=== PATIENT | female | born 1960 | race Caucasian/White ===

== ENCOUNTER 2020-01-10 21:15 | Emergency (ER) | payer MEDICAID, SELFPAY ==
[2020-01-10 21:28] VITALS: BP 139/101; PULSE 112; RESP 16; TEMP 36.7; O2SAT 85; BMI 29.9
--- NOTE | 2020-01-10 21:38 | CT_ITS ---
PROCEDURE: CT ABDOMEN PELVIS WO CON CLINICAL INDICATION: abd pain Abdominal pain, dysuria, painful urination with hematuria COMPARISON: No exams were available for comparison TECHNIQUE: Axial images obtained with sagittal and coronal reformats. All CT scans at the facility use one or more dose reduction, viz: automated exposure control, ma/kV adjustment per patient size (including targeted exams where dose is matched to indication, i.e. head), or iterative reconstruction technique. FINDINGS: LOWER THORAX: There is a 4 and 2 mm noncalcified nodule in the right lower lobe. 3 mm noncalcified nodule lingula. There are calcified granulomas in the left lower lobe and a noncalcified subpleural 2 mm nodule in the left lower lobe. ABDOMEN & PELVIS: Prior cholecystectomy. Hyperdensity with postsurgical change of the GE junction. Food debris within the stomach. The liver, spleen, adrenal glands, and pancreas have an unremarkable appearance. No renal or ureteral calculi. No hydronephrosis. There are few scattered small mesenteric lymph nodes. Unremarkable appearing appendix. Scattered colonic diverticula without diverticulitis. Mild degenerative disc disease L4-5 with 5 mm anterolisthesis of L4. there is some stranding of the abdominal wall fat in the right lower quadrant nonspecific. IMPRESSION: 1. No acute abdominal or pelvic findings. 2. Scattered noncalcified pulmonary nodules in the lung bases. Consider 6-12 month follow-up Dictated by: Mina Mae MD 01/11/2020 08:33 Electronically signed by Mina Mae MD in [place] 01/11/2020 08:33
[2020-01-10 21:42] LABS: Microscopic, Urine URINE MICROSCOPIC (MICROSCOPIC)
[2020-01-10 21:46] LABS: Appearance,Urine CLEAR (Clear); Bilirubin,Urine Negative (Negative); Blood, Urine 3+ (Negative); Color,Urine YELLOW (Yellow); Glucose,Urine (UA) Negative (Negative); Ketones,Urine TRACE (Negative); Leukocyte Esterase,Urine TRACE (Negative); Nitrate,Urine POSITIVE (Negative); PH,Urine 5.5 (5.0-8.5); Protein,Urine 2+ (Negative); Specific Gravity, Urine >= 1.030 (1.005-1.030); Urobilinogen,Urine 0.2 EU/dl (0.2)
[2020-01-10 21:50] LABS: Basophils % 0.3 % (0.1-2.0); Eosinophils # 0.3 K/mm3 (0.0-0.4); Hematocrit 36.3 % (37.0-47.0); Lymphocytes # 2.8 K/mm3 (0.7-4.5); Lymphocytes % 21.1 % (10-50); Mean Corpuscular HGB Conc 35.9 g/dL (31.8-35.4); Mean Corpuscular Hemoglobin 33.5 pg (27.0-31.2); Mean Corpuscular Volume 93.2 fl (81-99); Mean Platelet Volume 8.4 fl (7.4-10.4); Monocytes # 0.5 K/mm3 (0.1-1.0); Monocytes % 3.8 % (1.7-9.3); Neutrophils # 9.7 K/mm3 (1.8-7.8); Neutrophils % 72.8 % (37.0-80.0); Platelet Count 196 K/mm3 (142-424); Red Blood Count 3.89 M/mm3 (4.20-5.40); Red Cell Distribution Width 13.9 % (11.5-17.5); White Blood Count 13.3 K/mm3 (4.8-10.8)
--- NOTE | 2020-01-10 21:55 | PC.NURSE ---
lab to come draw blood for labs.
--- NOTE | 2020-01-10 22:02 | PC.NURSE ---
air evac confirms flight[facility] housekeeper child care notified.
[2020-01-10 22:05] LABS: Bacteria,Urine Trace /lpf
[2020-01-10 22:18] LABS: Chloride 108 mmol/L (98-107); Potassium 3.5 mmoL/L (3.5-5.1); Sodium 144 mmol/L (136-145)
[2020-01-10 22:21] LABS: Alanine Aminotransferase 31 U/L (12-78); Albumin Level 4.3 g/dl (3.5-5.0); Albumin/Globulin Ratio 1.3 (1.1-1.8); Alkaline Phosphatase 80 U/L (38-126); Anion Gap 15.5 mEq/L (5-15); Aspartate Amino Transferase 30 U/L (14-36); Bilirubin,Total 0.5 mg/dl (0.2-1.3); Blood Urea Nitrogen 17 mg/dl (7-17); Calcium 9.2 mg/dl (8.4-10.2); Carbon Dioxide 24 mmol/L (22.0-30.0); Creatinine Clearance Estimated 55 mL/min (50-200); Estimated Glomerular Filt Rate 46 ml/min (>60); GFR (African American) 56 ML/MIN (>60); Globulin 3.3 g/dL (1.3-3.2); Glucose 204 mg/dl (74-100); Total Protein,Serum 7.6 g/dl (6.3-8.2)
[2020-01-10 22:49] VITALS: BP 170/82; PULSE 76; RESP 20; O2SAT 99
--- NOTE | 2020-01-10 23:36 | PC.NURSE ---
still unable to obtain an iv line. green house manager at bedside attempting at this time.
--- NOTE | 2020-01-10 23:42 | PC.NURSE ---
DISCUSSED IF NEEDS ANTIBIOTIC AND STATES HE WILL GO SEE PATIENT FIRST
--- NOTE | 2020-01-11 00:17 | HMH.EDUROGF ---
ED Disposition Clinical Impression: Urinary tract infection Qualifiers: Urinary tract infection type: site unspecified Hematuria presence: with hematuria Qualified Code(s): N39.0 - Urinary tract infection, site not specified; R31.9 - Hematuria, unspecified Disposition: Home, Self-Care Condition on Discharge: Good Instructions: DI for Urinary Tract Infection (UTI) Additional Instructions: fluids and see pcp about urine culture and see dr gore for follow up Prescriptions: levoFLOXacin [Levaquin 500mg tab] 500 mg PO DAILY #7 tab Prescription Printed Phenazopyridine HCl [Pyridium 200mg Tablet] 200 pow PO TID #6 tab Prescription Printed Referrals: Lupillo Garcia [Primary Care Provider] - Daniel Gore MD [Staff Physician] - - Critical Care Critical Care Time: No Attestation: On 01/10/20, the high probability of a clinically significant, sudden or life threatening deterioration of the following system(s) required my full and direct attention, intervention and personal management. The time I documented below is in addition to time spent performing reported procedures but includes the following listed in this critical care notation. Medical Decision Making - Medical Records Medical records reviewed: Yes: I reviewed the patient's medical records. - Mirza Inquiry Pt receiving controlled substance: No Vital Signs: 01/10/20 21:28 01/10/20 22:49 Temperature 98.1 F Temperature Source Oral Pulse Rate [Right Brachial] 112 H 76 Respiratory Rate 16 20 Blood Pressure [Right Arm] 139/101 H 170/82 H Blood Pressure Mean [Right Arm] 113 111 Blood Pressure Source [Right Arm] Automatic Cuff Blood Pressure Position [Right Arm] Supine 02 Sat by Pulse Oximetry 85 L 99 Oxygen Delivery Method Room Air Room Air - Lab Data Lab results reviewed: Yes: I reviewed the patient's lab results. Lab Results 01/10/20 21:20: Urine Color Yellow, Urine Appearance Clear, Urine pH 5.5, Ur Specific [place] >= 1.030, Urine Protein 2+, Urine Glucose (UA) Negative, Urine Ketones Trace, Urine Blood 3+, Urine Nitrate Positive, Urine Bilirubin Negative, Urine Urobilinogen 0.2, Ur Leukocyte Esterase Trace, Urine RBC 5-10, Urine WBC 3-5, Ur Squamous Epith Cells 3-5, Urine Bacteria Trace 01/10/20 21:20: WBC 13.3 H, RBC 3.89 L, Hgb 13.0, Hct 36.3 L, MCV 93.2, MCH 33.5 H, MCHC 35.9 H, RDW 13.9, Plt Count 196, MPV 8.4, Neut % (Auto) 72.8, Lymph % (Auto) 21.1, [place] % (Auto) 3.8, Eos % (Auto) 2.0, Baso % (Auto) 0.3, Neut # (Auto) 9.7 H, Lymph # (Auto) 2.8, [place] # (Auto) 0.5, Eos # (Auto) 0.3, Baso # (Auto) 0.0 01/10/20 22:08: Sodium 144, Potassium 3.5, Chloride 108 H, Carbon Dioxide 24, Anion Gap 15.5 H, BUN 17, Creatinine 1.20 H, Estimated Creat Clear 55, Estimated GFR 46 L, Est GFR ( Amer) 56 L, Glucose 204 H, Calcium 9.2, Total Bilirubin 0.5, AST 30, ALT 31, Alkaline Phosphatase 80, Total Protein 7.6, Albumin 4.3, Globulin 3.3 H, Albumin/Globulin Ratio 1.3 Result diagrams: 01/10/20 21:20 01/10/20 22:08 Orders (Tests/Meds): ED MEDICATIONS Generic Name Dose Route Start Last Admin Trade Name Freq PRN Reason Stop Dose Admin Sodium Chloride 1,000 mls @ 999 mls/hr 01/10/20 21:45 01/10/20 23:42 Sod Chlor 0.9% 1000ml Bag IV 01/10/20 22:45 999 mls/hr .Q1H1M CELESTE Administration Ertapenem 1 gm/ Sodium 50 mls @ 100 mls/hr 01/11/20 00:30 01/11/20 00:29 Chloride IV 01/25/20 00:29 100 mls/hr Q24H CELESTE Administration Protocol Discontinued Medications Generic Name Dose Route Start Last Admin Trade Name Freq PRN Reason Stop Dose Admin Ondansetron HCl 4 mg 01/10/20 21:39 01/10/20 23:47 Zofran 4mg/2ml Vial IV 01/10/20 21:40 Not Given ONCE ONE ORDERS Category Date Time Status CT abdomen pelvis wo con Stat Cat Scan 01/10/20 21:38 Taken - CT Data CT Scan: Abdomen, Pelvis Time Received: 00:[address] Reviewed: Yes: I have viewed the radiologist's interpretation Preliminary Findings: Carolin
[2020-01-11 01:08] VITALS: BP 156/80; PULSE 72; RESP 18; TEMP 36.7; O2SAT 99
== END 2020-01-11 01:10 | disposition home or self-care (01) ==
PROVIDERS: Emergency Provider Emergency Medicine; PCP Family Medicine
DX: N30.01 Acute cystitis with hematuria (principal)
CPT/HCPCS: 36415; 74176; 80053; 81001; 85025; 87086; 96365; 96366; 96375; 99283; 99284; J1335

== ENCOUNTER 2020-10-23 11:48 | Emergency (ER) | payer MEDICAID, SELFPAY ==
[2020-10-23 12:29] VITALS: BP 118/55; PULSE 66; RESP 18; TEMP 36.7; O2SAT 99; BMI 29.7
--- NOTE | 2020-10-23 12:49 | HMH.EDUTC ---
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 Take ibuprofen for pain. I sent in a prescription to your pharmacy. Follow up with Dr. Jean (orthopedics). Sometimes there can be fractures that don't show up well on the first set of x-rays. So, you should follow up if you continue to have symptoms. I put in a referral but you need to call his office and schedule an appointment. Follow up with your regular doctor. GO TO THE ER FOR ANY WORSENING SYMPTOMS Follow your diabetes diet closely while you are on the steroids (prednisone). This medication will cause your blood sugar to go up while you are on it. Prescriptions: cephALEXin [cephALEXin 500mg capsule] 500 mg PO Q6H 10 Days #40 cap Transmission Status: Received by [facility] predniSONE [Prednisone 20mg Tab] 20 mg PO BID 4 Days #8 tab Transmission Status: Received by [facility] Referrals: Lupillo Garcia [Primary Care Provider] - Zain Jean MD [Staff Physician] - Time of Disposition: 13:00 Medical Decision Making - Medical Records Medical records reviewed: No: I reviewed the patient's medical records. - Mirza Inquiry Pt receiving controlled substance: No Vital Signs: 10/23/20 12:29 10/23/20 13:09 Temperature 98.0 F 98.0 F Temperature Source Oral Oral Pulse Rate 66 Pulse Rate [Right Radial] 66 Respiratory Rate 18 18 Blood Pressure 118/55 L Blood Pressure [Right Arm] 118/55 L Blood Pressure Mean [Right Arm] 76 02 Sat by Pulse Oximetry 99 Oxygen Delivery Method Room Air Room Air [facility] [place] - General Stated complaint: left knee pain Time Seen by Provider: 10/23/20 12:49 Mode of Arrival: Ambulatory Source of Information: Patient Limitations: No Limitations Description of Symptoms (Recalled from Triage Doc. by RN): left knee discomfort HEENT Symptoms (Recalled from RN notes): No Resp Symptoms (Recalled from RN notes): No Skin Symptoms (Recalled from RN notes): No MS Symptoms (Recalled from RN notes): Yes Functional Status (Recalled from RN notes): na - History of Present Illness Provider Complaint: She states that for the past 1 day she has had left knee pain. She has had redness of the front of her knee also. She denies any injury. She denies fever/chills. She denies any history of gout. She is a diabetic. - Related Data Previous Rx's Medication Instructions Recorded Phenazopyridine HCl [Pyridium 200 pow PO TID #6 tab 01/11/20 200mg Tablet] levoFLOXacin [Levaquin 500mg 500 mg PO DAILY #7 tab 01/11/20 tab] cephALEXin [cephALEXin 500mg 500 mg PO Q6H 10 Days #40 cap 10/23/20 capsule] predniSONE [Prednisone 20mg 20 mg PO BID 4 Days #8 tab 10/23/20 Tab] Allergies Allergy/AdvReac Type Severity Reaction Status Date / Time From ZOFRAN Allergy Mild Uncoded 06/24/17 15:28 Amoxicillin Allergy Unknown Uncoded 06/24/17 15:28 Clavulanic Acid Allergy Unknown Uncoded 06/24/17 15:28 From Fexofenadine Allergy Unknown Uncoded 06/24/17 15:28 Hydrochloride From Ketorolac Tromethamine Allergy Unknown Uncoded 06/24/17 15:28 From Metoclopramide HCl Allergy Unknown Uncoded 06/24/17 15:28 From Propoxyphene-N W/ Apap Allergy Unknown Uncoded 06/24/17 15:28 From STADOL Allergy Unknown I-HIVES Uncoded 06/24/17 15:28 Ibuprofen Allergy Unknown Uncoded 06/24/17 15:28 Nizatidine Allergy Unknown Uncoded 06/24/17 15:28 Pr
[2020-10-23 13:09] VITALS: BP 118/55; PULSE 66; RESP 18; TEMP 36.7; O2SAT 99
== END 2020-10-23 13:10 | disposition home or self-care (01) ==
PROVIDERS: Emergency Provider Nurse Practitioner Family; PCP Family Medicine
DX: M70.42 Prepatellar bursitis, left knee (principal); E11.69 Type 2 diabetes mellitus with other specified complication; Z88.8 Allergy status to other drugs, medicaments and biological substances
CPT/HCPCS: 99202; G0463

== ENCOUNTER 2021-01-31 21:24 | Emergency (ER) | payer MEDICAID, SELFPAY ==
[2021-01-31 21:31] VITALS: BP 156/72; PULSE 73; RESP 15; TEMP 36.5; O2SAT 98; BMI 32.8
--- NOTE | 2021-01-31 21:36 | XR_ITS ---
PROCEDURE INFORMATION: Exam: XR Left Hand Exam date and time: 01/31/2021 9:36 PM Age: 60 years old Clinical indication: Injury or trauma; Other: Laceration; Left; Little finger; Injury date: 01/31/2021; Additional info: Injury to 5th finger (broke glass) TECHNIQUE: Imaging protocol: XR Left hand. Views: 3 or more views. COMPARISON: No relevant prior studies available. FINDINGS: Bones/joints: Degenerative changes of the interphalangeal joints. No fracture or dislocation. Soft tissues: Normal. IMPRESSION: No acute osseous abnormality.
[2021-01-31 21:58] VITALS: BP 181/89; PULSE 79; O2SAT 97
--- NOTE | 2021-01-31 21:58 | HMH.EDGENADL ---
ED Disposition Clinical Impression: Laceration Disposition: Home, Self-Care Condition on Discharge: Good Instructions: DI for Laceration Repair Additional Instructions: Follow-up with your primary care doctor. Take Tylenol and ibuprofen as needed for pain. Return for any signs of infection as we discussed. Return to the emergency department for any other new or worsening symptoms. Referrals: Lupillo Garcia [Primary Care Provider] - - Critical Care Critical Care Time: No Attestation: On 01/31/21, the high probability of a clinically significant, sudden or life threatening deterioration of the following system(s) required my full and direct attention, intervention and personal management. The time I documented below is in addition to time spent performing reported procedures but includes the following listed in this critical care notation. Medical Decision Making - Mirza Inquiry Pt receiving controlled substance: No Vital Signs: 01/31/21 21:31 01/31/21 21:58 Temperature 97.7 F Temperature Source Oral Pulse Rate 79 Pulse Rate [Right Brachial] 73 Respiratory Rate 15 Blood Pressure 181/89 H Blood Pressure [Right Arm] 156/72 H Blood Pressure Mean [Right Arm] 100 Blood Pressure Source [Right Arm] Automatic Cuff Blood Pressure Position [Right Arm] Sitting 02 Sat by Pulse Oximetry 98 97 Oxygen Delivery Method Room Air Orders (Tests/Meds): ED MEDICATIONS Discontinued Medications Generic Name Dose Route Start Last Admin Trade Name Freq PRN Reason Stop Dose Admin Tetanus/Diphtheria Toxoids 0.5 ml 01/31/21 21:36 01/31/21 21:55 Tetanus-Diphth Toxoid, Adult 0.5ml Syr IM 01/31/21 21:37 0.5 ml .ONCE ONE Administration Medical Decision Narrative: The patient is a 60-year-old female who presents to the emergency department with an injury to her left fifth digit after cutting it on glass. Differential diagnosis includes laceration, foreign body, fracture, tendon injury, neurovascular injury. No other injuries were sustained. The patient does not member when she had her last tetanus shot so was given Tdap. On exam all tendons appear to be intact. The patient has normal sensation and distal capillary refill less than 2 seconds. X-ray revealed no fractures or evidence of foreign body. The laceration was repaired. We discussed return precautions and the patient voiced understanding. She will follow up with her primary care doctor and was discharged. General Adult HPI - General Chief complaint: Wound/Laceration Stated complaint: AO 01/31 2100 Lac L hand Time Seen by Provider: 01/31/21 21:58 Mode of Arrival: Family Vehicle Limitations: No Limitations Description of Symptoms (Recalled from ER Triage Doc. by RN): pt states she was getting meds and a glass jar broke, slicing her left lateral 5th digit; denies use of blood thinner; small flapped area noted. - History of Present Illness HPI narrative: Patient is a 60-year-old female who presents to the emergency department with an injury to her left hand. Immediately prior to arrival she was getting medications for a family member and reports her hand slipped off of the cabinet going through the glass. She sustained a cut to her left fifth digit. She ran the area under water and came to the emergency department. She takes aspirin but no other blood thinners. She denies any other injuries. She did not take any medications prior to arrival. - Related Data Previous Rx's Medication Instructions Recorded Phenazopyridine HCl [Pyridium 200 pow PO TID #6 tab 01/11/20 200mg Tablet] levoFLOXacin [Levaquin 500mg 500 mg PO DAILY #7 tab 01/11/20 tab] cephALEXin [cephALEXin 500mg 500 mg PO Q6H 10 Days #40 cap 10/23/20 capsule] predniSONE [Prednisone 20mg 20 mg PO BID 4 Days #8 tab 10/23/20 Tab] Allergies Allergy/AdvReac Type Severity Reaction Status Date / Time Amoxicillin Allergy Mild Uncoded 01/31/21 21:5
[2021-01-31 22:53] VITALS: BP 142/70; PULSE 73; RESP 15; TEMP 36.9; O2SAT 98
== END 2021-01-31 22:55 | disposition home or self-care (01) ==
PROVIDERS: Emergency Provider Emergency Medicine; PCP Family Medicine
DX: S61.217A Laceration without foreign body of left little finger without damage to nail, initial encounter (principal); W25.XXXA Contact with sharp glass, initial encounter; Y92.019 Unspecified place in single-family (private) house as the place of occurrence of the external cause; Z23 Encounter for immunization; E11.9 Type 2 diabetes mellitus without complications
CPT/HCPCS: 12001; 73130; 90714; 99282

== ENCOUNTER 2021-07-18 14:47 | Emergency (ER) | payer MEDICAID, SELFPAY ==
[2021-07-18 15:37] VITALS: BP 142/73; PULSE 73; RESP 18; TEMP 37.1; O2SAT 97; BMI 25.2
[2021-07-18 15:51] LABS: Coronavirus 19, PCR Not Detected (NotDetected); Influenza A, PCR Not Detected (NotDetected); Influenza B, PCR Not Detected (NotDetected)
[2021-07-18 16:03] LABS: Strep Scrn Group A (Rapid) Negative (Negative)
--- NOTE | 2021-07-18 16:08 | HMH.EDGENADL ---
ED Disposition Clinical Impression: Viral upper respiratory infection Disposition: Home, Self-Care Condition on Discharge: Good Instructions: DI for Viral Upper Respiratory Infection -- Adult Additional Instructions: Tylenol or ibuprofen for pain or fever. Additional instructions for UPPER RESPIRATORY INFECTION: See your physician if not improving in 3-4 days or if worsening. Rest and drink plenty of fluids. Return immediately if you have an uncontrollable fever greater than 104 degrees, difficulty breathing or shortness of breath, persistent vomiting, or inability to swallow. Referrals: Provider,Referral, [Primary Care Provider] - - Critical Care Critical Care Time: No Attestation: On 07/18/21, the high probability of a clinically significant, sudden or life threatening deterioration of the following system(s) required my full and direct attention, intervention and personal management. The time I documented below is in addition to time spent performing reported procedures but includes the following listed in this critical care notation. Medical Decision Making - Mirza Inquiry Pt receiving controlled substance: No Vital Signs: 07/18/21 15:37 Temperature 98.7 F Temperature Source Oral Pulse Rate [Left Radial] 73 Respiratory Rate 18 Blood Pressure [Right Arm] 142/73 H Blood Pressure Mean [Right Arm] 96 02 Sat by Pulse Oximetry 97 - Lab Data Lab Results 07/18/21 15:41: Group A Strep Rapid Negative 07/18/21 15:41: SARS-CoV-2 (PCR) Not detected, Influenza A Untype (PCR) Not detected, Influenza Type B (PCR) Not detected Orders (Tests/Meds): ORDERS Category Date Time Status Strep Screen Confirmation Stat Micro 07/18/21 15:41 Received General Adult HPI - General Chief complaint: Upper Respiratory Infection Stated complaint: fever, covid symptoms Time Seen by Provider: 07/18/21 15:55 Mode of Arrival: Ambulatory Limitations: No Limitations Description of Symptoms (Recalled from ER Triage Doc. by RN): pt to ed c/o cough and chest congestion x2 days - History of Present Illness HPI narrative: 6 members of the same family all being seen for upper respiratory infection symptoms for the past few days. Patient complains of cough and congestion, fever to 100 degrees. States that she had COVID several months ago and has been hospitalized in the ICU because of low blood pressure when she went into get an infusion. Also states that her of COVID. He had been vaccinated, but she has not been vaccinated. 1 member of the family tested positive for strep yesterday. - Related Data Previous Rx's Medication Instructions Recorded Phenazopyridine HCl [Pyridium 200 pow PO TID #6 tab 01/11/20 200mg Tablet] levoFLOXacin [Levaquin 500mg 500 mg PO DAILY #7 tab 01/11/20 tab] cephALEXin [cephALEXin 500mg 500 mg PO Q6H 10 Days #40 cap 10/23/20 capsule] predniSONE [Prednisone 20mg 20 mg PO BID 4 Days #8 tab 10/23/20 Tab] Allergies Allergy/AdvReac Type Severity Reaction Status Date / Time Amoxicillin Allergy Mild Uncoded 01/31/21 21:56 From ZOFRAN Allergy Mild Uncoded 06/24/17 15:28 Clavulanic Acid Allergy Unknown Uncoded 06/24/17 15:28 From Fexofenadine Allergy Unknown Uncoded 06/24/17 15:28 Hydrochloride From Ketorolac Tromethamine Allergy Unknown Uncoded 06/24/17 15:28 From Metoclopramide HCl Allergy Unknown Uncoded 06/24/17 15:28 From Propoxyphene-N W/ Apap Allergy Unknown Uncoded 06/24/17 15:28 From STADOL Allergy Unknown I-HIVES Uncoded 06/24/17 15:28 Ibuprofen Allergy Unknown Uncoded 06/24/17 15:28 Nizatidine Allergy Unknown Uncoded 06/24/17 15:28 Prochlorperazine Allergy Unknown Uncoded 06/24/17 15:28 [facility] History - Hepatitis A Screen Drug use history?: No High risk sexual behaviors?: No History of sexually transmitted infection?: No Currently employed?: No Childcare worker?: No Do you have indoor plumbing?: Yes Do you have
[2021-07-18 19:22] VITALS: BP 135/78; PULSE 75; RESP 19; TEMP 36.9; O2SAT 96
== END 2021-07-18 19:32 | disposition home or self-care (01) ==
LOC: UTC 14:49 → ER 15:00
PROVIDERS: Emergency Provider Emergency Medicine
DX: J06.9 Acute upper respiratory infection, unspecified (principal); Z20.822 Contact with and (suspected) exposure to COVID-19; E11.9 Type 2 diabetes mellitus without complications
CPT/HCPCS: 87430; 99282; C9803; U0003; U0005

== ENCOUNTER 2022-01-15 10:59 | Emergency (ER) | payer MEDICAID, SELFPAY ==
--- NOTE | 2022-01-15 11:30 | HMH.EDUTC ---
[facility] Disposition Clinical Impression: Exposure to COVID-19 virus Disposition: Home, Self-Care Condition on Discharge: Good Instructions: DI for COVID-19 (Suspected or Confirmed ), Preventing the Spread of Coronavirus Discharge Instructions Additional Instructions: Drink plenty of fluids. Take tylenol for pain or fever. Return if you begin to have difficulty breathing. Follow up with your regular doctor. GO TO THE ER FOR ANY WORSENING SYMPTOMS Quarantine until you know the results of your covid-19 test. Notify your school or workplace of your results and follow their instructions regarding return to work/school. Referrals: Provider,Referral, [Primary Care Provider] - Time of Disposition: 11:50 Medical Decision Making - Medical Records Medical records reviewed: No: I reviewed the patient's medical records. - Mirza Inquiry Pt receiving controlled substance: No Vital Signs: 01/15/22 11:38 01/15/22 12:05 Temperature 97.8 F 97.8 F Temperature Source Oral Pulse Rate 60 Pulse Rate [Left] 60 Respiratory Rate 17 17 Blood Pressure 113/66 Blood Pressure [Right Arm] 113/66 Blood Pressure Mean [Right Arm] 81 02 Sat by Pulse Oximetry 100 - Lab Data Lab results reviewed: Yes: I reviewed the patient's lab results. [facility] HPI - General Stated complaint: covid test Time Seen by Provider: 01/15/22 11:30 - History of Present Illness Provider Complaint: She states that for the past 2 days she has had a chest congestion and sinus congestion. - Related Data Previous Rx's Medication Instructions Recorded Phenazopyridine HCl [Pyridium 200 pow PO TID #6 tab 01/11/20 200mg Tablet] levoFLOXacin [Levaquin 500mg 500 mg PO DAILY #7 tab 01/11/20 tab] cephALEXin [cephALEXin 500mg 500 mg PO Q6H 10 Days #40 cap 10/23/20 capsule] predniSONE [Prednisone 20mg 20 mg PO BID 4 Days #8 tab 10/23/20 Tab] Allergies Allergy/AdvReac Type Severity Reaction Status Date / Time Amoxicillin Allergy Mild Uncoded 01/31/21 21:56 From ZOFRAN Allergy Mild Uncoded 06/24/17 15:28 Clavulanic Acid Allergy Unknown Uncoded 06/24/17 15:28 From Fexofenadine Allergy Unknown Uncoded 06/24/17 15:28 Hydrochloride From Ketorolac Tromethamine Allergy Unknown Uncoded 06/24/17 15:28 From Metoclopramide HCl Allergy Unknown Uncoded 06/24/17 15:28 From Propoxyphene-N W/ Apap Allergy Unknown Uncoded 06/24/17 15:28 From STADOL Allergy Unknown I-HIVES Uncoded 06/24/17 15:28 Ibuprofen Allergy Unknown Uncoded 06/24/17 15:28 Nizatidine Allergy Unknown Uncoded 06/24/17 15:28 Prochlorperazine Allergy Unknown Uncoded 06/24/17 15:28 [facility] History - Hepatitis A Screen Attestation statement:: This patient has been screened for Hepatitis A risk factors. I have reviewed the patient's past medical history: Yes 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: Reports:: Diabetes Mellitus Type 2 ROS Obtained: Yes All systems reviewed & no additional complaints - Constitutional Constitutional: Reports as per HPI - Eyes Eyes: Denies eye discharge - ENT Ears, Nose, Mouth, and Throat: Reports as per HPI - Cardiovascular Cardiovascular: Denies chest pain - Respiratory Respiratory: Reports chest congestion, Reports cough Physical Exam - General General appearance: alert, in no apparent distress - Head Head exam: atraumatic, normocephalic, normal inspection - Eye Eye exam: Present: normal appearance, PERRL, EOMI - ENT ENT exam: Present: normal exam, normal oropharynx, mucous membranes moist, TM's normal bilaterally, normal external ear exam - Neck Neck exam: Present: normal inspection, full ROM, trachea midline. Absent: meningismus, lymphadenopathy - Chest Chest inspection: Present: normal inspection, symmetric chest wall rise. Absent: tenderness - Respiratory Respiratory exam: Present: normal lung sounds bilaterally. Absent: respiratory distress - Cardiovascular Cardiovascular exam: Present: regu
[2022-01-15 11:38] VITALS: BP 113/66; PULSE 60; RESP 17; TEMP 36.6; O2SAT 100; BMI 23.0
[2022-01-15 12:05] VITALS: BP 113/66; PULSE 60; RESP 17; TEMP 36.6
== END 2022-01-15 12:06 | disposition home or self-care (01) ==
PROVIDERS: Emergency Provider Nurse Practitioner Family
DX: Z03.89 Encounter for observation for other suspected diseases and conditions ruled out (principal); E11.9 Type 2 diabetes mellitus without complications; Z79.52 Long term (current) use of systemic steroids; Z20.822 Contact with and (suspected) exposure to COVID-19; Z88.0 Allergy status to penicillin; Z88.6 Allergy status to analgesic agent; Z88.8 Allergy status to other drugs, medicaments and biological substances
CPT/HCPCS: 99213; C9803; G0463; U0003; U0005

== ENCOUNTER 2022-03-03 11:24 | Emergency (ER) | payer MEDICAID, SELFPAY ==
[2022-03-03 11:26] VITALS: BP 120/59; PULSE 67; RESP 16; TEMP 36.6; O2SAT 98; BMI 23.0
--- NOTE | 2022-03-03 11:50 | CT_ITS ---
PROCEDURE INFORMATION: Exam: CT Cervical Spine Without Contrast Exam date and time: 03/03/2022 12:28 PM Age: 61 years old Clinical indication: Neck pain TECHNIQUE: Imaging protocol: Computed tomography of the cervical spine without contrast. Radiation optimization: All CT scans at this facility use at least one of these dose optimization techniques: automated exposure control; mA and/or kV adjustment per patient size (includes targeted exams where dose is matched to clinical indication); or iterative reconstruction. COMPARISON: No relevant prior studies available. FINDINGS: Bones/joints: Cervical spondylosis. Multilevel disc degeneration most pronounced at C5-C6 and C6-C7. At C2-C3: Moderate left facet hypertrophy. Mild left neural foraminal stenosis. At C5-C6: Approximate 3 mm predominant osteophytic ridge. Accompanying moderate hypertrophic facet changes with moderate-moderately severe left mild right neural foraminal stenosis. At C6-C7: 3-3.5 mm combined osteophytic ridge and disc bulge. Mild left greater than right neural foraminal stenosis. Potential for cord effacement at this level. Incomplete visualization of posterior spinal fusion beginning at T3. Lungs: Lung apices are normal. Soft tissues: Unremarkable. IMPRESSION: 1. At C6-C7: 3-3.5 mm combined osteophytic ridge and disc bulge. Potential for cord effacement. Mild left greater than right neural foraminal stenosis. Consider follow-up evaluation with computerized tomography for further evaluation of the spinal canal. 2. At C5-C6: Approximate 3 mm predominant osteophytic ridge formation. Moderate-moderately severe left, mild right neural foraminal stenosis.
[2022-03-03 12:16] LABS: Coronavirus 19, PCR Not Detected (NotDetected); Influenza A, PCR Not Detected (NotDetected); Influenza B, PCR Not Detected (NotDetected)
--- NOTE | 2022-03-03 13:08 | HMH.EDGENADL ---
Discharge Plan Disposition Patient Disposition: Home, Self-Care Condition: Good Chief Complaint: PAIN Prescriptions Prescriptions: New prednisone 20 mg tablet 20 mg PO BID Qty: 10 0RF No Action levofloxacin 500 MG tablet 500 mg PO DAILY Qty: 7 0RF phenazopyridine 200 MG tablet 200 pow PO TID Qty: 6 0RF prednisone 20 MG tablet 20 mg PO BID 4 Days Qty: 8 0RF cephalexin 500 MG capsule 500 mg PO Q6H 10 Days Qty: 40 0RF Referrals Follow up/Referrals: Lupillo Garcia [Primary Care Provider] - See instructions Activity Restrictions/Add. Instructions Additional Instructions/Restrictions: Prednisone as prescribed. Take Tylenol for pain. Heating pad as needed. Additional instructions for NECK PAIN: See your physician as soon as possible for further evaluation. Return immediately if neck pain becomes intolerable, or if fever, numbness or weakness of your arms or legs, loss of control of your bowels or bladder. Clinical Impressions Clinical Impression: Cervical disc disease Discharge ED Provider: Jordin Calvillo General Adult HPI General Chief complaint: PAIN Stated complaint: pain left side of neck, no accident,dizzy Time Seen by Provider: 03/03/22 13:05 Mode of Arrival: Ambulatory Source of Information: Patient Limitations: No Limitations Description of Symptoms (Recalled from ER Triage Doc. by RN): to ed per pvt car with c/o lt side neck pain, dizziness x 5 days worse with movement. History of Present Illness HPI narrative: States I done something to my neck . She has left-sided neck pain for the past 5 days increased with movement. Pain radiates to her left shoulder, but not down the arm below the elbow. Denies numbness or weakness, but has some tingling of the back of her left hand. Related Data Previous Rx's Medication Instructions Recorded levofloxacin 500 mg tablet 500 mg PO DAILY #7 tabs 01/11/20 phenazopyridine 200 mg tablet 200 pow PO TID #6 tabs 01/11/20 cephalexin 500 mg capsule 500 mg PO Q6H 10 days #40 caps 10/23/20 prednisone 20 mg tablet 20 mg PO BID 4 days #8 tabs 10/23/20 prednisone 20 mg tablet 20 mg PO BID #10 tabs 03/03/22 Allergies Allergy/AdvReac Type Severity Reaction Status Date / Time Amoxicillin Allergy Mild Uncoded 01/31/21 21:56 From ZOFRAN Allergy Mild Uncoded 06/24/17 15:28 Clavulanic Acid Allergy Unknown Uncoded 06/24/17 15:28 From Fexofenadine Allergy Unknown Uncoded 06/24/17 15:28 Hydrochloride From Ketorolac Tromethamine Allergy Unknown Uncoded 06/24/17 15:28 From Metoclopramide HCl Allergy Unknown Uncoded 06/24/17 15:28 From Propoxyphene-N W/ Apap Allergy Unknown Uncoded 06/24/17 15:28 From STADOL Allergy Unknown I-HIVES Uncoded 06/24/17 15:28 Ibuprofen Allergy Unknown Uncoded 06/24/17 15:28 Nizatidine Allergy Unknown Uncoded 06/24/17 15:28 Prochlorperazine Allergy Unknown Uncoded 06/24/17 15:28 PFSH PFS Social History (Updated 03/03/22 @ 13:25 by Jordin Calvillo MD) Smoking Status: Never smoker alcohol intake: never current occupational status: other ROS Obtained: Yes Systems reviewed as appropriate & no additional complaints except as documented Constitutional Constitutional: Denies fever(s) ENT Ears, Nose, Mouth, and Throat: Reports neck pain Cardiovascular Cardiovascular: Denies chest pain Respiratory Respiratory: Denies shortness of breath Musculoskeletal Musculoskeletal: Reports as per HPI and Reports neck pain Physical Exam General General appearance: alert and in no apparent distress Head Head exam: atraumatic and normocephalic Eye Eye exam: Present normal appearance and EOMI Neck Neck exam: Present normal inspection and tenderness (Lateral left neck) Chest Chest inspection: Present normal inspection and symmetric chest wall rise Respiratory Respiratory exam: Present normal lung sounds bilaterally; Absent respiratory distress Cardiovascular Cardiovascular exam: Present regular ra
[2022-03-03 14:35] VITALS: BP 115/68; PULSE 78; RESP 16; TEMP 36.6; O2SAT 98
== END 2022-03-03 14:36 | disposition home or self-care (01) ==
PROVIDERS: Emergency Provider Emergency Medicine; PCP Family Medicine
DX: M50.223 Other cervical disc displacement at C6-C7 level (principal); M50.31 Other cervical disc degeneration, high cervical region; M25.512 Pain in left shoulder; R20.2 Paresthesia of skin; Z20.822 Contact with and (suspected) exposure to COVID-19; Z79.52 Long term (current) use of systemic steroids; Z79.899 Other long term (current) drug therapy; Z88.0 Allergy status to penicillin; Z88.1 Allergy status to other antibiotic agents; Z88.3 Allergy status to other anti-infective agents; Z88.6 Allergy status to analgesic agent; Z88.8 Allergy status to other drugs, medicaments and biological substances
CPT/HCPCS: 72125; 99285; C9803; U0003; U0005

== ENCOUNTER 2022-03-31 18:11 | Emergency (ER) | payer MEDICAID, SELFPAY ==
[2022-03-31 18:15] VITALS: BP 149/76; PULSE 76; RESP 16; TEMP 36.8; O2SAT 97; BMI 23.0
--- NOTE | 2022-03-31 18:24 | PC.NURSE ---
took vitals upon arrival to room; gave warm blanket; asked of could use the restroom pt declined, told pt i would come back in a few mins
[2022-03-31 19:22] LABS: Appearance,Urine CLEAR (Clear); Bilirubin,Urine Negative (Negative); Blood, Urine Negative (Negative); Color,Urine YELLOW (Yellow); Glucose,Urine (UA) Negative (Negative); Ketones,Urine Negative (Negative); Leukocyte Esterase,Urine Negative (Negative); Microscopic, Urine URINE MICROSCOPIC (MICROSCOPIC); Nitrate,Urine Negative (Negative); Protein,Urine Negative (Negative); Specific Gravity, Urine 1.025 (1.005-1.030); Urobilinogen,Urine 0.2 EU/dl (0.2)
[2022-03-31 20:27] VITALS: BP 137/84; PULSE 66; O2SAT 100
--- NOTE | 2022-03-31 20:40 | HMH.EDBACK ---
Discharge Plan Disposition Patient Disposition: Home, Self-Care Prescriptions Prescriptions: New prednisone [prednisone] 20 mg tablet 20 mg PO BID Qty: 10 0RF No Action levofloxacin 500 MG tablet 500 mg PO DAILY Qty: 7 0RF phenazopyridine 200 MG tablet 200 pow PO TID Qty: 6 0RF prednisone 20 MG tablet 20 mg PO BID 4 Days Qty: 8 0RF cephalexin 500 MG capsule 500 mg PO Q6H 10 Days Qty: 40 0RF prednisone 20 mg tablet 20 mg PO BID Qty: 10 0RF Referrals Follow up/Referrals: Lupillo Garcia [Primary Care Provider] - See instructions Clinical Impressions Clinical Impression: Lumbar radiculopathy Instructions Patient Instructions: DI for Back Pain With Sciatica Discharge ED Provider: Darius Kelley Back Pain HPI General Chief Complaint: Back Pain/Injury Stated Complaint: lower back pain Time Seen by Provider: 03/31/22 20:00 Mode of Arrival: Ambulatory Source of Information: Patient and Medical Record Limitations: No Limitations Description of Symptoms (Recalled from ER Triage Doc. by RN): to ed per pvt car with c/o lower back pain x 2 days. pt denies any injury, incontinence. History of Present Illness HPI Narrative: lt sided lower back pain with rad to lt hip with no cauda equina sx Complaint: back pain Onset (ago): hour(s) Duration: intermittent Similar Symptoms Previously: No Location: lumbar spine Severity: moderate Quality: dull Context: unknown Associated symptoms: denies other symptoms Related Data Previous Rx's Medication Instructions Recorded levofloxacin 500 mg tablet 500 mg PO DAILY #7 tabs 01/11/20 phenazopyridine 200 mg tablet 200 pow PO TID #6 tabs 01/11/20 cephalexin 500 mg capsule 500 mg PO Q6H 10 days #40 caps 10/23/20 prednisone 20 mg tablet 20 mg PO BID 4 days #8 tabs 10/23/20 prednisone 20 mg tablet 20 mg PO BID #10 tabs 03/03/22 prednisone 20 mg tablet 20 mg PO BID #10 tabs 03/31/22 Allergies Allergy/AdvReac Type Severity Reaction Status Date / Time Amoxicillin Allergy Mild Uncoded 01/31/21 21:56 From ZOFRAN Allergy Mild Uncoded 06/24/17 15:28 Clavulanic Acid Allergy Unknown Uncoded 06/24/17 15:28 From Fexofenadine Allergy Unknown Uncoded 06/24/17 15:28 Hydrochloride From Ketorolac Tromethamine Allergy Unknown Uncoded 06/24/17 15:28 From Metoclopramide HCl Allergy Unknown Uncoded 06/24/17 15:28 From Propoxyphene-N W/ Apap Allergy Unknown Uncoded 06/24/17 15:28 From STADOL Allergy Unknown I-HIVES Uncoded 06/24/17 15:28 Ibuprofen Allergy Unknown Uncoded 06/24/17 15:28 Nizatidine Allergy Unknown Uncoded 06/24/17 15:28 Prochlorperazine Allergy Unknown Uncoded 06/24/17 15:28 PFSH PFS Social History (Updated 03/03/22 @ 13:25 by Jordin Calvillo MD) Smoking Status: Never smoker alcohol intake: never current occupational status: other Travel in the last 8 weeks: None ROS Obtained: Yes All systems reviewed & no additional complaints except as documented Constitutional Constitutional: Denies fever(s) and Denies headache(s) Eyes Eyes: Denies decreased night vision ENT Ears, Nose, Mouth, and Throat: Denies headache(s) Cardiovascular Cardiovascular: Denies chest pain with activity Respiratory Respiratory: Denies cough Gastrointestinal Gastrointestingal: Denies diarrhea Genitourinary Female Genitourinary: Denies abnormal menses and Denies flank pain Musculoskeletal Musculoskeletal: Reports as per HPI, Reports back pain and Reports limited range of motion Integumentary/Breasts Skin/Breast: Denies lesions Neurologic Neurologic: Denies headache(s) Physical Exam General General appearance: alert Head Head exam: normocephalic Eye Eye exam: Present PERRL and EOMI ENT ENT exam: Present mucous membranes moist Neck Neck exam: Present trachea midline Respiratory Respiratory exam: Present normal lung sounds bilaterally; Absent respiratory distress Cardiovascular Cardiovascular exam: Present regular rate Abdominal E
--- NOTE | 2022-03-31 20:45 | XR_ITS ---
PROCEDURE INFORMATION: Exam: XR Lumbosacral Spine Exam date and time: 03/31/2022 8:52 PM Age: 61 years old Clinical indication: Low back pain TECHNIQUE: Imaging protocol: Radiologic exam of the lumbosacral spine. Views: 4 or 5 views. COMPARISON: No relevant prior studies available. FINDINGS: Bones/joints: No acute fracture. Anterolisthesis of L4 on L5. Facet osteoarthrosis within lower lumbar spine. [id number] degenerative disc disease at L4-L5, L5-S1 levels. Soft tissues: Unremarkable. Intraperitoneal space: Surgical clips within RIGHT upper quadrant. Vasculature: Atherosclerotic disease of aorta. IMPRESSION: No fracture. If back pain persists, consider MRI for further evaluation.
--- NOTE | 2022-03-31 20:45 | XR_ITS ---
PROCEDURE INFORMATION: Exam: XR Left Hip Exam date and time: 03/31/2022 8:55 PM Age: 61 years old Clinical indication: Hip pain; Left hip TECHNIQUE: Imaging protocol: Radiologic exam of the Left hip. Views: 2 or 3 views hip with pelvis when performed. COMPARISON: No relevant prior studies available. FINDINGS: Bones/joints: No acute fracture. No dislocation. Soft tissues: Unremarkable. IMPRESSION: No fracture. If hip pain persists, consider MRI to exclude occult fracture/internal derangement.
[2022-03-31 22:00] VITALS: BP 119/80; PULSE 82; RESP 16; TEMP 36.6; O2SAT 98
== END 2022-03-31 22:30 | disposition home or self-care (01) ==
PROVIDERS: Emergency Medicine; Emergency Provider Emergency Medicine; PCP Family Medicine
DX: M54.16 Radiculopathy, lumbar region (principal)
CPT/HCPCS: 72110; 73502; 81001; 99213; G0463

== ENCOUNTER → 2022-07-18 16:39 | Outpatient (CLI) | payer MEDICAID, SELFPAY ==
[2022-07-18 16:51] LABS: Microscopic, Urine URINE MICROSCOPIC (MICROSCOPIC)
[2022-07-18 17:43] LABS: Hematocrit 40.3 % (37.0-47.0); Hemoglobin 12.6 g/dL (12.2-16.2); Mean Corpuscular HGB Conc 31.4 g/dL (31.8-35.4); Mean Corpuscular Hemoglobin 31.7 pg (27.0-31.2); Platelet Count 217 K/mm3 (142-424); Red Blood Count 3.99 M/mm3 (4.20-5.40); Red Cell Distribution Width 14.8 % (11.5-17.5); White Blood Count 8.1 K/mm3 (4.8-10.8)
[2022-07-18 18:29] LABS: Hemoglobin A1C 6.6 % (4.0-6.0)
[2022-07-18 18:46] LABS: Alanine Aminotransferase 12 U/L (12-78); Albumin Level 4.4 g/dl (3.5-5.0); Albumin/Globulin Ratio 1.5 (1.1-1.8); Alkaline Phosphatase 65 U/L (38-126); Anion Gap 14.9 mEq/L (5-15); Aspartate Amino Transferase 22 U/L (14-36); Bilirubin,Total 0.3 mg/dl (0.2-1.3); Blood Urea Nitrogen 25 mg/dl (7-17); Calcium 8.9 mg/dl (8.4-10.2); Carbon Dioxide 23 mmol/L (22.0-30.0); Chloride 104 mmol/L (98-107); Estimated Glomerular Filt Rate 50 ml/min (>60); GFR (African American) 61 ML/MIN (>60); Globulin 2.9 g/dL (1.3-3.2); Glucose 137 mg/dl (74-100); Potassium 3.9 mmoL/L (3.5-5.1); Sodium 138 mmol/L (136-145); Total Protein,Serum 7.3 g/dl (6.3-8.2); Uric Acid 3.4 mg/dl (2.5-6.2)
[2022-07-18 18:55] LABS: Intact Parathyroid Hormone 31.4 pg/mL (7.5-53.5)
[2022-07-18 18:58] LABS: 25-OH Vitamin D, Total 30.5 ng/mL (30-100)
[2022-07-18 19:36] LABS: Creatinine,Urine Random 31 mg/dL (Not Estab.)
[2022-07-18 21:26] LABS: Appearance,Urine CLEAR (Clear); Bilirubin,Urine Negative (Negative); Blood, Urine Negative (Negative); Color,Urine STRAW (Yellow); Glucose,Urine (UA) Negative (Negative); Ketones,Urine Negative (Negative); Leukocyte Esterase,Urine Negative (Negative); Nitrate,Urine Negative (Negative); Protein,Urine Negative (Negative); Urobilinogen,Urine 0.2 EU/dl (0.2)
== END ==
PROVIDERS: PCP Family Medicine; Visit Provider Internal Medicine Nephrology
DX: N18.2 Chronic kidney disease, stage 2 (mild) (principal); I10 Essential (primary) hypertension; E11.21 Type 2 diabetes mellitus with diabetic nephropathy; E55.9 Vitamin D deficiency, unspecified; E79.0 Hyperuricemia without signs of inflammatory arthritis and tophaceous disease; Z79.4 Long term (current) use of insulin
CPT/HCPCS: 36415; 80053; 81001; 82306; 82570; 83036; 83970; 84155; 84550; 85014; 85018; 85048; 85049

== ENCOUNTER 2022-07-31 12:41 | Emergency (ER) | payer MEDICAID, SELFPAY ==
--- NOTE | 2022-07-31 13:12 | EXP.UTC ---
Discharge Plan Disposition Patient Disposition: Home, Self-Care Condition: Good Prescriptions Prescriptions: No Action bupropion HCl 150 mg tablet sustained-release 12 hr 150 mg PO DAILY tizanidine 4 mg tablet 4 mg PO DIRECTED amlodipine 5 mg tablet 5 mg PO DIRECTED diazepam 2 mg tablet 2 mg PO DIRECTED promethazine 25 mg tablet 25 mg PO DIRECTED aspirin 81 mg tablet,chewable 81 mg PO DAILY allopurinol 300 mg tablet 300 mg PO DIRECTED gabapentin 100 mg capsule 100 mg PO DIRECTED lisinopril 2.5 mg tablet 2.5 mg PO DIRECTED spironolactone 50 mg tablet 50 mg PO DIRECTED insulin glargine [Lantus Solostar U-100 Insulin] 100 unit/mL (3 mL) insulin pen See Rx Instructions .ROUTE .COMPLEX Rx Instructions: units per MD daily Referrals Follow up/Referrals: Lupillo Garcia [Primary Care Provider] - See instructions Activity Restrictions/Add. Instructions Additional Instructions/Restrictions: *Monitor Temp, Over the counter Motrin or Tylenol as directed/as needed Tylenol every 4 hours and Motrin every 6 hours (as long as your family doctor has told you that you can take it) for fever or pain. and straight to ER if unable to lower temp less than 101.0 after medication given *Warm salt water gargles may help to soothe the throat *Throat Lozenges? *Warm fluids like tea with honey may help to soothe the throat? *Sleep elevated *Humidifier/Vaporizer Your throat swab was sent for culture. Those results are typically sent to your primary care. Be sure to follow up in 2-3 days with your family doctor/primary care physician if no improvement so they can review those result and treat if necessary. If you don?t have a primary care doctor, I recommend you get one but in the mean time, you will have to return to a walk in clinic Follow up IMMEDIATELY for new or worsening symptoms or no Noticeable improvement over the next 48-72 hours. 911 for difficulty breathing or swallowing Clinical Impressions Clinical Impression: URI (upper respiratory infection) Instructions Patient Instructions: Sore Throat, DI for Nasal Congestion Discharge ED Provider[place]edios [place]ard [facility] [place] General Stated complaint: sore throat, cough, SHER Time Seen by Provider: 07/31/22 13:12 History of Present Illness Provider Complaint: Patient states that she has been having sore throat, nasal congestion/pressure with drainage in the back of her throat and loss of voice for about 4 days that has continued to get worse Related Data Home Medications Medication Instructions Recorded Confirmed allopurinol 300 mg tablet 300 mg PO DIRECTED . 03/31/22 03/31/22 amlodipine 5 mg tablet 5 mg PO DIRECTED nerves 03/31/22 03/31/22 aspirin 81 mg chewable tablet 81 mg PO DAILY CAD 03/31/22 03/31/22 bupropion HCl 150 mg tablet,12 hr 150 mg PO DAILY Depression 03/31/22 03/31/22 sustained-release diazepam 2 mg tablet 2 mg PO DIRECTED Asthma 03/31/22 03/31/22 gabapentin 100 mg capsule 100 mg PO DIRECTED neuropathy 03/31/22 03/31/22 insulin glargine 100 unit/mL (3 See Rx Instructions .Route 03/31/22 03/31/22 mL) subcutaneous pen (Lantus .COMPLEX Diabetes Solostar U-100 Insulin) lisinopril 2.5 mg tablet 2.5 mg PO DIRECTED High blood 03/31/22 03/31/22 pressure promethazine 25 mg tablet 25 mg PO DIRECTED Nausea & 03/31/22 03/31/22 vomiting spironolactone 50 mg tablet 50 mg PO DIRECTED High blood 03/31/22 03/31/22 pressure tizanidine 4 mg tablet 4 mg PO DIRECTED neuropathy 03/31/22 03/31/22 Allergies Allergy/AdvReac Type Severity Reaction Status Date / Time acetaminophen [From Tylenol] Allergy Verified 07/31/22 13:37 amoxicillin Allergy Verified 07/31/22 13:37 butorphanol [From Stadol] Allergy Verified 07/31/22 13:37 clavulanic acid Allergy Verified 07/31/22 13:37 fexofenadine Allergy Verified 07/31/22
[2022-07-31 13:15] VITALS: BP 131/78; PULSE 83; RESP 17; TEMP 36.9; O2SAT 99; BMI 21.9
[2022-07-31 13:33] LABS: UTC Strep Screen (Rapid) Negative (Negative)
[2022-07-31 14:20] VITALS: BP 131/78; PULSE 83; RESP 17; TEMP 36.9; O2SAT 99
== END 2022-07-31 14:25 | disposition home or self-care (01) ==
PROVIDERS: Emergency Provider Nurse Practitioner; PCP Family Medicine
DX: J06.9 Acute upper respiratory infection, unspecified (principal)
CPT/HCPCS: 87880; 99212; G0463

== ENCOUNTER 2022-09-01 11:41 | Emergency (ER) | payer MEDICAID, SELFPAY ==
[2022-09-01 11:43] VITALS: BP 121/55; PULSE 85; RESP 18; TEMP 36.8; O2SAT 98; BMI 20.9
--- NOTE | 2022-09-01 11:48 | ECG_ITS ---
APPROVED REPORT Exam: Resting ECG HR:72 bpm ECG Measurements Heart Rate 72 AXES WV 152 P 42 QRSd 84 QRS 38 QT 372 T 65 QTc 396 Conclusion SINUS RHYTHM NORMAL ECG UNCONFIRMED REPORT Electronically signed by : Jose Delarosa MD 09/02/2022 19:26:57
--- NOTE | 2022-09-01 11:50 | XR_ITS ---
PROCEDURE INFORMATION: Exam: XR Chest Exam date and time: 09/01/2022 11:50 AM Age: 62 years old Clinical indication: Cough and shortness of breath; Additional info: Cough, SOA TECHNIQUE: Imaging protocol: Radiologic exam of the chest. Views: 2 views. COMPARISON: CT CERVICAL SPINE WO CON 03/03/2022 12:28 PM FINDINGS: Lungs: Unremarkable. No consolidation. Pleural spaces: Unremarkable. No pleural effusion. No pneumothorax. Heart/Mediastinum: Unremarkable. No cardiomegaly. Bones/joints: Extensive spinal instrumentation upper-midthoracic spine and evidence of prior corpectomy with interbody stabilization midthoracic spine unchanged. IMPRESSION: No evidence of active cardiopulmonary disease.
--- NOTE | 2022-09-01 11:50 | HMH.EDGENADL ---
Discharge Plan Disposition Patient Disposition: Home, Self-Care Condition: Good Prescriptions Prescriptions: New benzonatate 100 mg capsule 100 mg PO TID PRN (Reason: cough) Qty: 10 0RF No Action bupropion HCl 150 mg tablet sustained-release 12 hr 150 mg PO DAILY tizanidine 4 mg tablet 4 mg PO DIRECTED amlodipine 5 mg tablet 5 mg PO DIRECTED diazepam 2 mg tablet 2 mg PO DIRECTED promethazine 25 mg tablet 25 mg PO DIRECTED aspirin 81 mg tablet,chewable 81 mg PO DAILY allopurinol 300 mg tablet 300 mg PO DIRECTED gabapentin 100 mg capsule 100 mg PO DIRECTED lisinopril 2.5 mg tablet 2.5 mg PO DIRECTED spironolactone 50 mg tablet 50 mg PO DIRECTED insulin glargine [Lantus Solostar U-100 Insulin] 100 unit/mL (3 mL) insulin pen See Rx Instructions .ROUTE .COMPLEX Rx Instructions: units per MD daily Referrals Follow up/Referrals: Lupillo Garcia [Primary Care Provider] - See instructions Activity Restrictions/Add. Instructions Additional Instructions/Restrictions: Tessalon as needed for cough. Additional instructions for UPPER RESPIRATORY INFECTION: See your physician if not improving in 3-4 days or if worsening. Rest and drink plenty of fluids. Return immediately if you have an uncontrollable fever greater than 104 degrees, difficulty breathing or shortness of breath, persistent vomiting, or inability to swallow. Clinical Impressions Clinical Impression: Upper respiratory infection, viral Instructions Patient Instructions: DI for Viral Upper Respiratory Infection -- Adult Discharge ED Provider: Jordin Calvillo General Adult HPI General Chief complaint: Shortness of Breath/Dyspnea Stated complaint: ear,throat pain, SOA Time Seen by Provider: 09/01/22 11:50 Mode of Arrival: Ambulatory Limitations: No Limitations Description of Symptoms (Recalled from ER Triage Doc. by RN): PT REPORTS SHORTNESS OF BREATH, COUGH, HEADACHE, VOMITING AND WEAKNESS SINCE FRIDAY. History of Present Illness HPI narrative: States that she woke up sick. She has a productive cough, bilateral earaches, sore throat, hoarse voice, feels hot and cold, some vomiting. Slight diarrhea. Some achy chest pain. No sinus pain. No significant rhinorrhea. Temperature not taken at home. No known exposures to any illnesses. She is a non-smoker, has no chronic lung or heart conditions. Related Data Home Medications Medication Instructions Recorded Confirmed allopurinol 300 mg tablet 300 mg PO DIRECTED . 03/31/22 03/31/22 amlodipine 5 mg tablet 5 mg PO DIRECTED nerves 03/31/22 03/31/22 aspirin 81 mg chewable tablet 81 mg PO DAILY CAD 03/31/22 03/31/22 bupropion HCl 150 mg tablet,12 hr 150 mg PO DAILY Depression 03/31/22 03/31/22 sustained-release diazepam 2 mg tablet 2 mg PO DIRECTED Asthma 03/31/22 03/31/22 gabapentin 100 mg capsule 100 mg PO DIRECTED neuropathy 03/31/22 03/31/22 insulin glargine 100 unit/mL (3 See Rx Instructions .Route 03/31/22 03/31/22 mL) subcutaneous pen (Lantus .COMPLEX Diabetes Solostar U-100 Insulin) lisinopril 2.5 mg tablet 2.5 mg PO DIRECTED High blood 03/31/22 03/31/22 pressure promethazine 25 mg tablet 25 mg PO DIRECTED Nausea & 03/31/22 03/31/22 vomiting spironolactone 50 mg tablet 50 mg PO DIRECTED High blood 03/31/22 03/31/22 pressure tizanidine 4 mg tablet 4 mg PO DIRECTED neuropathy 03/31/22 03/31/22 Previous Rx's Medication Instructions Recorded benzonatate 100 mg capsule 100 mg PO TID PRN cough #10 caps 09/01/22 Allergies Allergy/AdvReac Type Severity Reaction Status Date / Time acetaminophen [From Tylenol] Allergy Verified 07/31/22 13:37 amoxicillin Allergy Verified 07/31/22 13:37 butorphanol [From Stadol] Allergy Verified 07/31/22 13:37 clavulanic acid Allergy Verified 07/31/22 13:37 fexofenadine Allergy Verified
--- NOTE | 2022-09-01 11:51 | PC.NURSE ---
DR CORREA AT BEDSIDE
--- NOTE | 2022-09-01 11:53 | PC.NURSE ---
radiology aware of chest xray
[2022-09-01 11:54] LABS: Coronavirus 19, PCR Not Detected (NotDetected); Influenza A, PCR Not Detected (NotDetected); Influenza B, PCR Not Detected (NotDetected)
--- NOTE | 2022-09-01 11:58 | PC.NURSE ---
pt transported to radiology via wheelchair.
--- NOTE | 2022-09-01 12:01 | PC.NURSE ---
pt returned from radiology via wheelchair.
[2022-09-01 12:04] LABS: Basophils # 0.1 K/mm3 (0-0.2); Eosinophils # 0.2 K/mm3 (0.0-0.4); Eosinophils % 1.9 % (0.1-12.0); Hematocrit 35.9 % (37.0-47.0); Hemoglobin 12.3 g/dL (12.2-16.2); Lymphocytes # 3.6 K/mm3 (0.7-4.5); Lymphocytes % 28.8 % (10-50); Mean Corpuscular HGB Conc 34.2 g/dL (31.8-35.4); Mean Corpuscular Volume 93.7 fl (81-99); Mean Platelet Volume 8.2 fl (7.4-10.4); Monocytes # 0.7 K/mm3 (0.1-1.0); Monocytes % 5.4 % (1.7-9.3); Neutrophils # 7.9 K/mm3 (1.8-7.8); Neutrophils % 62.8 % (37.0-80.0); Platelet Count 276 K/mm3 (142-424); Red Blood Count 3.83 M/mm3 (4.20-5.40); Red Cell Distribution Width 14.3 % (11.5-17.5); White Blood Count 12.5 K/mm3 (4.8-10.8)
[2022-09-01 12:07] LABS: Chloride 111 mmol/L (98-107); Potassium 3.6 mmoL/L (3.5-5.1); Sodium 142 mmol/L (136-145)
[2022-09-01 12:08] LABS: Strep Scrn Group A (Rapid) Negative (Negative)
[2022-09-01 12:10] LABS: Alanine Aminotransferase 19 U/L (12-78); Albumin Level 4.5 g/dl (3.5-5.0); Albumin/Globulin Ratio 1.3 (1.1-1.8); Alkaline Phosphatase 66 U/L (38-126); Anion Gap 12.6 mEq/L (5-15); Aspartate Amino Transferase 22 U/L (14-36); Bilirubin,Total 0.5 mg/dl (0.2-1.3); Blood Urea Nitrogen 18 mg/dl (7-17); Carbon Dioxide 22 mmol/L (22.0-30.0); Creatinine Clearance Estimated 41 mL/min (50-200); Estimated Glomerular Filt Rate 50 ml/min (>60); GFR (African American) 61 ML/MIN (>60); Globulin 3.5 g/dL (1.3-3.2)
[2022-09-01 12:11] LABS: Calcium 8.8 mg/dl (8.4-10.2); Glucose 81 mg/dl (74-100)
[2022-09-01 13:30] VITALS: BP 103/58; PULSE 71; RESP 18; TEMP 36.5; O2SAT 99
== END 2022-09-01 13:30 | disposition home or self-care (01) ==
PROVIDERS: Emergency Provider Emergency Medicine; PCP Family Medicine
DX: J06.9 Acute upper respiratory infection, unspecified (principal); F41.8 Other specified anxiety disorders; J45.909 Unspecified asthma, uncomplicated; E11.9 Type 2 diabetes mellitus without complications; I10 Essential (primary) hypertension; G43.909 Migraine, unspecified, not intractable, without status migrainosus; Z90.49 Acquired absence of other specified parts of digestive tract; Z98.51 Tubal ligation status; Z20.822 Contact with and (suspected) exposure to COVID-19
CPT/HCPCS: 71046; 80053; 85025; 87430; 93005; 99285; C9803; U0003; U0005

== ENCOUNTER 2022-11-26 15:31 | Emergency (ER) | payer MEDICAID, SELFPAY ==
[2022-11-26 15:40] VITALS: BP 142/84; PULSE 80; RESP 18; O2SAT 98; BMI 21.4
[2022-11-26 16:00] VITALS: BP 142/84; PULSE 80; RESP 18; TEMP 36.9; O2SAT 98; BMI 21.6
[2022-11-26 16:05] LABS: Apearance,Urine Clear (Clear); Color,Urine Yellow (Yellow)
[2022-11-26 16:06] LABS: Bilirubin,Urine Negative (Negative); Blood, Urine Negative (Negative); Glucose,Urine (UA) Negative (Negative); Ketones,Urine Negative (Negative); PH,Urine 5.5 (5.0-8.5); Protein,Urine Negative (Negative); UTC Leukocyte Esterase,Urine Negative (Negative); UTC Nitrate,Urine Negative (Negative); Urobilinogen,Urine 0.2 EU/dl (0.2)
[2022-11-26 16:14] VITALS: BP 142/84; PULSE 80; RESP 18; TEMP 36.9; O2SAT 98
--- NOTE | 2022-11-26 16:16 | EXP.UTC ---
Discharge Plan Disposition Patient Disposition: Home, Self-Care Condition: Good Prescriptions Prescriptions: New methylprednisolone [Medrol (Aelx)] 4 mg tablets,dose pack See Rx Instructions .Route .COMPLEX 6 Days Qty: 21 0RF Rx Instructions: taper pack; No Action bupropion HCl 150 mg tablet sustained-release 12 hr 150 mg PO DAILY tizanidine 4 mg tablet 4 mg PO DIRECTED amlodipine 5 mg tablet 5 mg PO DIRECTED diazepam 2 mg tablet 2 mg PO DIRECTED promethazine 25 mg tablet 25 mg PO DIRECTED aspirin 81 mg tablet,chewable 81 mg PO DAILY allopurinol 300 mg tablet 300 mg PO DIRECTED gabapentin 100 mg capsule 100 mg PO DIRECTED lisinopril 2.5 mg tablet 2.5 mg PO DIRECTED spironolactone 50 mg tablet 50 mg PO DIRECTED insulin glargine [Lantus Solostar U-100 Insulin] 100 unit/mL (3 mL) insulin pen See Rx Instructions .ROUTE .COMPLEX Rx Instructions: units per MD daily benzonatate 100 mg capsule 100 mg PO TID PRN (Reason: cough) Qty: 10 0RF Referrals Follow up/Referrals: Lupillo Garcia [Primary Care Provider] - See instructions Activity Restrictions/Add. Instructions Additional Instructions/Restrictions: *Increase fluids. Water not Soda or Tea *Start antibiotic immediately and be sure to take as ordered for the FULL length of time although you should start to see improvement over the next 48 hours *Pyridium as needed Remember this medication will turn your urine . This is normal but it will stain what ever it gets on *You should not use Pyridium for more than 48 hours. If so , follow up with your primary physician to review urine culture and ensure that antibiotic is adequate for infection *Be SURE to follow up anytime for new or worsening symptoms with your family doctor. AND in 48 hours for urine culture results with your family doctor, if you do not have a doctor then you may call back to the [facility] for urine culture results and further treatment. We do recommend that you choose and establish care with a Primary Care Physician. ?AND follow up with them ?in 10-14 days to repeat UA to ensure infection is resolved and blood no longer present *Be sure to let your PCP know that we sent urine cultures from the [facility] so they can follow up to ensure that you area the on the correct antibiotic Call your doctor office and make appointment for 48 hours (2 days from today) ?to follow up and get the results of your urine culture and further treatment Clinical Impressions Clinical Impression: Lumbar radiculopathy Instructions Patient Instructions: DI for Low Back Pain, Low Back Pain Discharge ED Provider: Remedios Menard [facility] General Stated complaint: lower back/kidney pain, painful urination Mode of Arrival: Ambulatory Source of Information: Patient Limitations: No Limitations Time Seen by Provider: 11/26/22 16:16 Description of Symptoms (Recalled from Triage Doc. by RN): PATIENT C/O LOWER BACK PAIN AND URINARY FREQUENCY HEENT Symptoms (Recalled from RN notes): No Resp Symptoms (Recalled from RN notes): No Skin Symptoms (Recalled from RN notes): No MS Symptoms (Recalled from RN notes): No Functional Status (Recalled from RN notes): WNL History of Present Illness Provider Complaint: Patient states that for the last couple of days she has been having pain in her lower back and she started having urinary frequency and a little burning when she would urinate States that she feels like does when she has a UTI States that she does have a bad back and her back hurts sometimes and it is more painful when she tries to get up from sitting down not sure if it is pain from her back or UTI Related Data Home Medications Medication Instructions Recorded Confirmed allopurinol 300 mg tablet 300 mg PO DIRECTED . 03/31/22 03/31/22 amlodipine 5 mg tablet 5 mg PO DIRECTED nerves 03/31/22 03/31/22 aspirin 81 mg chewable tab
== END 2022-11-26 16:53 | disposition home or self-care (01) ==
PROVIDERS: Emergency Provider Nurse Practitioner; PCP Family Medicine
DX: M54.16 Radiculopathy, lumbar region (principal); R30.0 Dysuria; E11.9 Type 2 diabetes mellitus without complications; I10 Essential (primary) hypertension; J45.909 Unspecified asthma, uncomplicated; F41.9 Anxiety disorder, unspecified; F32.9 Major depressive disorder, single episode, unspecified; Z79.4 Long term (current) use of insulin
CPT/HCPCS: 81003; 99212; 99214; G0463

== ENCOUNTER → 2023-01-17 10:48 | Outpatient (CLI) | payer MEDICAID, SELFPAY ==
[2023-01-17 10:56] LABS: Microscopic, Urine URINE MICROSCOPIC (MICROSCOPIC)
[2023-01-17 11:17] LABS: Hematocrit 39.1 % (37.0-47.0); Hemoglobin 12.9 g/dL (12.2-16.2); Mean Corpuscular HGB Conc 32.9 g/dL (31.8-35.4); Mean Corpuscular Hemoglobin 31.4 pg (27.0-31.2); Mean Corpuscular Volume 95.4 fl (81-99); Platelet Count 205 K/mm3 (142-424); Red Cell Distribution Width 14.1 % (11.5-17.5); White Blood Count 5.6 K/mm3 (4.8-10.8)
[2023-01-17 12:01] LABS: Alanine Aminotransferase 22 U/L (12-78); Albumin Level 4.5 g/dl (3.5-5.0); Albumin/Globulin Ratio 1.5 (1.1-1.8); Alkaline Phosphatase 59 U/L (38-126); Anion Gap 16.2 mEq/L (5-15); Aspartate Amino Transferase 27 U/L (14-36); Bilirubin,Total 0.5 mg/dl (0.2-1.3); Blood Urea Nitrogen 20 mg/dl (7-17); Calcium 9.4 mg/dl (8.4-10.2); Carbon Dioxide 21 mmol/L (22.0-30.0); Chloride 110 mmol/L (98-107); Estimated Glomerular Filt Rate 63 ml/min (>60); GFR (African American) 77 ML/MIN (>60); Globulin 3.1 g/dL (1.3-3.2); Glucose 142 mg/dl (74-100); Potassium 4.2 mmoL/L (3.5-5.1); Sodium 143 mmol/L (136-145); Total Protein,Serum 7.6 g/dl (6.3-8.2); Uric Acid 4.5 mg/dl (2.5-6.2)
[2023-01-17 12:15] LABS: Intact Parathyroid Hormone 30.6 pg/mL (7.5-53.5)
[2023-01-17 12:19] LABS: 25-OH Vitamin D, Total 43.7 ng/mL (30-100)
[2023-01-17 12:51] LABS: Creatinine,Urine Random 94 mg/dL (Not Estab.)
[2023-01-17 13:30] LABS: Appearance,Urine CLEAR (Clear); Bilirubin,Urine Negative (Negative); Blood, Urine Negative (Negative); Color,Urine YELLOW (Yellow); Glucose,Urine (UA) Negative (Negative); Ketones,Urine Negative (Negative); Leukocyte Esterase,Urine Negative (Negative); Nitrate,Urine Negative (Negative); PH,Urine 5.5 (5.0-8.5); Protein,Urine Negative (Negative); Specific Gravity, Urine 1.025 (1.005-1.030); Urobilinogen,Urine 0.2 EU/dl (0.2)
[2023-01-17 13:40] LABS: Bacteria,Urine Trace /lpf; Squamous Epithelial Cell,Urine Occasional #/hpf (0-5)
[2023-01-17 20:32] LABS: Hemoglobin A1C 7.3 % (4.0-6.0)
== END ==
LOC: LAB 10:50
PROVIDERS: PCP Family Medicine; Visit Provider Internal Medicine Nephrology
DX: N18.2 Chronic kidney disease, stage 2 (mild) (principal); I10 Essential (primary) hypertension; E11.21 Type 2 diabetes mellitus with diabetic nephropathy; E55.9 Vitamin D deficiency, unspecified; E79.0 Hyperuricemia without signs of inflammatory arthritis and tophaceous disease
CPT/HCPCS: 36415; 80053; 81001; 82306; 82570; 83036; 83970; 84155; 84550; 85014; 85018; 85048; 85049

== ENCOUNTER 2023-02-14 10:00 | Emergency (ER) | payer MEDICAID, SELFPAY ==
[2023-02-14 10:20] VITALS: BP 155/77; PULSE 65; RESP 20; TEMP 36.5; O2SAT 97; BMI 24.1
[2023-02-14 10:30] VITALS: BMI 24.1
[2023-02-14 10:37] LABS: Microscopic, Urine URINE MICROSCOPIC (MICROSCOPIC)
[2023-02-14 10:39] LABS: Appearance,Urine CLEAR (Clear); Bilirubin,Urine Negative (Negative); Blood, Urine Negative (Negative); Color,Urine YELLOW (Yellow); Glucose,Urine (UA) Negative (Negative); Ketones,Urine Negative (Negative); Leukocyte Esterase,Urine Negative (Negative); Nitrate,Urine Negative (Negative); Protein,Urine Negative (Negative); Specific Gravity, Urine 1.015 (1.005-1.030); Urobilinogen,Urine 0.2 EU/dl (0.2)
[2023-02-14 10:50] LABS: UTC Strep Screen (Rapid) Negative (Negative)
[2023-02-14 10:52] LABS: Bacteria,Urine Trace /lpf
[2023-02-14 10:59] VITALS: BP 155/77; PULSE 65; RESP 20; TEMP 36.5; O2SAT 97
--- NOTE | 2023-02-14 11:04 | EXP.UTC ---
Discharge Plan Disposition Patient Disposition: Home, Self-Care Condition: Good Prescriptions Prescriptions: No Action bupropion HCl 150 mg tablet sustained-release 12 hr 150 mg PO DAILY tizanidine 4 mg tablet 4 mg PO DIRECTED amlodipine 5 mg tablet 5 mg PO DIRECTED diazepam 2 mg tablet 2 mg PO DIRECTED promethazine 25 mg tablet 25 mg PO DIRECTED aspirin 81 mg tablet,chewable 81 mg PO DAILY allopurinol 300 mg tablet 300 mg PO DIRECTED gabapentin 100 mg capsule 100 mg PO DIRECTED lisinopril 2.5 mg tablet 2.5 mg PO DIRECTED spironolactone 50 mg tablet 50 mg PO DIRECTED insulin glargine [Lantus Solostar U-100 Insulin] 100 unit/mL (3 mL) insulin pen See Rx Instructions .ROUTE .COMPLEX Rx Instructions: units per MD daily benzonatate 100 mg capsule 100 mg PO TID PRN (Reason: cough) Qty: 10 0RF methylprednisolone [Medrol (Alex)] 4 mg tablets,dose pack See Rx Instructions .Route .COMPLEX 6 Days Qty: 21 0RF Rx Instructions: taper pack; Referrals Follow up/Referrals: Provider,Referral, MD [Primary Care Provider] - See instructions Activity Restrictions/Add. Instructions Additional Instructions/Restrictions: Increase fluids. Gargle with salt water or take tylenol as needed for sore throat. Do not hold urine for long periods of time. If symptoms persist, follow up with primary care provider. Clinical Impressions Clinical Impression: Acute sore throat Instructions Patient Instructions: DI for Viral Pharyngitis Discharge ED Provider: Pastora Benton [facility] [place] H[place] General Stated complaint: sore throat, abd pain, pain in Lt pinky Mode of Arrival: Ambulatory Source of Information: Patient Limitations: No Limitations Time Seen by Provider: 02/14/23 10:29 Description of Symptoms (Recalled from Triage Doc. by RN): PATIENT C/O LOWER ABDOMINAL PAIN AND FREQUENT URINATION X 2 DAYS, SORE THROAT THAT STARTED YESTERDAY, AND PAIN TO LEFT PINKY FINGER SINCE THIS MORNING HEENT Symptoms (Recalled from RN notes): Yes Resp Symptoms (Recalled from RN notes): No Skin Symptoms (Recalled from RN notes): No MS Symptoms (Recalled from RN notes): Yes Functional Status (Recalled from RN notes): WNL History of Present Illness Provider Complaint: PATIENT C/O LOWER ABDOMINAL PAIN AND FREQUENT URINATION X 2 DAYS, SORE THROAT THAT STARTED YESTERDAY, AND PAIN TO LEFT PINKY FINGER SINCE THIS MORNING. She states that she has had a lot of urgency and burning with urination. Related Data Home Medications Medication Instructions Recorded Confirmed allopurinol 300 mg tablet 300 mg PO DIRECTED . 03/31/22 03/31/22 amlodipine 5 mg tablet 5 mg PO DIRECTED nerves 03/31/22 03/31/22 aspirin 81 mg chewable tablet 81 mg PO DAILY CAD 03/31/22 03/31/22 bupropion HCl 150 mg tablet,12 hr 150 mg PO DAILY Depression 03/31/22 03/31/22 sustained-release diazepam 2 mg tablet 2 mg PO DIRECTED Asthma 03/31/22 03/31/22 gabapentin 100 mg capsule 100 mg PO DIRECTED neuropathy 03/31/22 03/31/22 insulin glargine 100 unit/mL (3 See Rx Instructions .Route 03/31/22 03/31/22 mL) subcutaneous pen (Lantus .COMPLEX Diabetes Solostar U-100 Insulin) lisinopril 2.5 mg tablet 2.5 mg PO DIRECTED High blood 03/31/22 03/31/22 pressure promethazine 25 mg tablet 25 mg PO DIRECTED Nausea & 03/31/22 03/31/22 vomiting spironolactone 50 mg tablet 50 mg PO DIRECTED High blood 03/31/22 03/31/22 pressure tizanidine 4 mg tablet 4 mg PO DIRECTED neuropathy 03/31/22 03/31/22 Previous Rx's Medication Instructions Recorded benzonatate 100 mg capsule 100 mg PO TID PRN cough #10 caps 09/01/22 methylprednisolone 4 mg tablets in See Rx Instructions .Route 11/26/22 a dose pack (Medrol (Alex)) .COMPLEX 6 days #21 tabs Allergies Allergy/AdvReac Type Severity Reaction Status Date / Time acetaminophen [From Tylenol] Allergy Verified
== END 2023-02-14 11:25 | disposition home or self-care (01) ==
PROVIDERS: Emergency Provider Nurse Practitioner Family
DX: J02.9 Acute pharyngitis, unspecified (principal); R10.30 Lower abdominal pain, unspecified; R30.0 Dysuria; E11.9 Type 2 diabetes mellitus without complications; I10 Essential (primary) hypertension; J45.909 Unspecified asthma, uncomplicated; F41.9 Anxiety disorder, unspecified; F32.A Depression, unspecified; Z79.4 Long term (current) use of insulin
CPT/HCPCS: 81001; 87880; 99212; 99213; G0463

== ENCOUNTER 2023-04-28 15:21 | Emergency (ER) | payer MEDICAID, SELFPAY ==
[2023-04-28] VITALS (7 sets, daily range): BP systolic 133–188; BP diastolic 71–94; PULSE 68–78; RESP 16–20; TEMP 36.6–37.1; O2SAT 98–100; BMI 24.6
--- NOTE | 2023-04-28 15:31 | ECG_ITS ---
APPROVED REPORT Exam: Resting ECG HR:75 bpm ECG Measurements Heart Rate 75 AXES OK 149 P 60 QRSd 83 QRS 34 QT 390 T 64 QTc 419 Conclusion SINUS RHYTHM NONSPECIFIC T-WAVE ABNORMALITY BORDERLINE ECG UNCONFIRMED REPORT Electronically signed by : Jose Delarosa MD 04/29/2023 14:48:08
--- NOTE | 2023-04-28 16:32 | CT_ITS ---
PROCEDURE INFORMATION: Exam: CTA Head With Contrast, Venography Exam date and time: 04/28/2023 5:42 PM Age: 63 years old Clinical indication: Pain; Headache; Additional info: Severe SHER crown TECHNIQUE: Imaging protocol: Computed tomography angiography of the head with contrast. Exam focused on the veins. 3D rendering (Not supervised by radiologist): MIP and/or 3D reconstructed images were created by the technologist. Radiation optimization: All CT scans at this facility use at least one of these dose optimization techniques: automated exposure control; mA and/or kV adjustment per patient size (includes targeted exams where dose is matched to clinical indication); or iterative reconstruction. Contrast material: ISO 370; Contrast volume: 70 ml; Contrast route: INTRAVENOUS (IV); REPORTING DATA: Count of CT and Cardiac NM exams in prior 12 months: This patient has received 0 known CTs and 0 known cardiac nuclear medicine studies in the 12 months prior to the current study. COMPARISON: CT HEAD/BRAIN WO CON 04/28/2023 5:40 PM FINDINGS: Superior sagittal sinus: Patent. Straight sinus: Patent. Transverse sinuses: Patent. Sigmoid sinuses: Patent. Internal jugular veins: Limited visualized internal jugular veins are patent. Brain: No definite mass, mass effect, or midline shift. Cerebral ventricles: No ventriculomegaly. Soft tissues: Unremarkable. IMPRESSION: No venous thrombosis.
--- NOTE | 2023-04-28 16:32 | CT_ITS ---
PROCEDURE INFORMATION: Exam: CT Head Without Contrast Exam date and time: 04/28/2023 5:40 PM Age: 63 years old Clinical indication: Pain; Headache; Additional info: Severe calvarial SHER TECHNIQUE: Imaging protocol: Computed tomography of the head without contrast. Radiation optimization: All CT scans at this facility use at least one of these dose optimization techniques: automated exposure control; mA and/or kV adjustment per patient size (includes targeted exams where dose is matched to clinical indication); or iterative reconstruction. REPORTING DATA: Count of CT and Cardiac NM exams in prior 12 months: This patient has received 0 known CTs and 0 known cardiac nuclear medicine studies in the 12 months prior to the current study. COMPARISON: CT CERVICAL SPINE WO CON 03/03/2022 12:28 PM FINDINGS: Brain: Normal. No hemorrhage. Unremarkable white matter. No mass effect. Cerebral ventricles: No ventriculomegaly. Paranasal sinuses: Visualized sinuses are unremarkable. No fluid levels. Mastoid air cells: Partial opacification of the mastoid air cells. Bones/joints: Unremarkable. No acute fracture. Soft tissues: Unremarkable. IMPRESSION: No acute intracranial abnormality.
--- NOTE | 2023-04-28 16:34 | HMH.EDGENADL ---
Discharge Plan Disposition Patient Disposition: Home, Self-Care Chief Complaint: Headache Prescriptions Prescriptions: No Action bupropion HCl 150 mg tablet sustained-release 12 hr 150 mg PO DAILY tizanidine 4 mg tablet 4 mg PO DIRECTED amlodipine 5 mg tablet 5 mg PO DIRECTED diazepam 2 mg tablet 2 mg PO DIRECTED promethazine 25 mg tablet 25 mg PO DIRECTED aspirin 81 mg tablet,chewable 81 mg PO DAILY allopurinol 300 mg tablet 300 mg PO DIRECTED gabapentin 100 mg capsule 100 mg PO DIRECTED lisinopril 2.5 mg tablet 2.5 mg PO DIRECTED spironolactone 50 mg tablet 50 mg PO DIRECTED insulin glargine [Lantus Solostar U-100 Insulin] 100 unit/mL (3 mL) insulin pen See Rx Instructions .ROUTE .COMPLEX Rx Instructions: units per MD daily benzonatate 100 mg capsule 100 mg PO TID PRN (Reason: cough) Qty: 10 0RF methylprednisolone [Medrol (Alex)] 4 mg tablets,dose pack See Rx Instructions .Route .COMPLEX 6 Days Qty: 21 0RF Rx Instructions: taper pack; Referrals Follow up/Referrals: Lupillo Garcia [Primary Care Provider] - See instructions Activity Restrictions/Add. Instructions Additional Instructions/Restrictions: At this time it was felt you are safe to be discharged home. If new or worsening symptoms please do not hesitate to return the emergency department. If symptoms persist please follow-up with your family doctor as you are able. Clinical Impressions Clinical Impression: Headache Discharge ED Provider: Chacorta Crews General Adult HPI General Chief complaint: Headache Stated complaint: dizzy, upset stomach, low bp Time Seen by Provider: 04/28/23 16:00 Mode of Arrival: Ambulatory Source of Information: Patient Limitations: No Limitations Description of Symptoms (Recalled from ER Triage Doc. by RN): Pt states that she woke up with dizziness, weakness, a headache and nausea. Pt states that she went to the pain clinic this morning at 1000 and her blood pressure was 99/52 and she was told that since her pressure was low she should come to the ed with any worsening symptoms. Pt states that after she left the pain clinic she took a lortab to help with her headache but she hasn't felt any better. History of Present Illness HPI narrative: Patient is a 63-year-old female with past medical history of chronic pain on opiates, previous migraines who presents emergency department for evaluation of headache. Patient states that earlier this morning she has had bitemporal headaches with associated photophobia consistent with her previous migraines. She went to pain clinic where her blood pressure was noted to be 99/52 and she was instructed to come here for continued evaluation. Patient states that she took her Lortab for her headache but does not feel any better. There is associated nausea. No other acute complaints at this time. Related Data Home Medications Medication Instructions Recorded Confirmed allopurinol 300 mg tablet 300 mg PO DIRECTED . 03/31/22 03/31/22 amlodipine 5 mg tablet 5 mg PO DIRECTED nerves 03/31/22 03/31/22 aspirin 81 mg chewable tablet 81 mg PO DAILY CAD 03/31/22 03/31/22 bupropion HCl 150 mg tablet,12 hr 150 mg PO DAILY Depression 03/31/22 03/31/22 sustained-release diazepam 2 mg tablet 2 mg PO DIRECTED Asthma 03/31/22 03/31/22 gabapentin 100 mg capsule 100 mg PO DIRECTED neuropathy 03/31/22 03/31/22 insulin glargine 100 unit/mL (3 See Rx Instructions .Route 03/31/22 03/31/22 mL) subcutaneous pen (Lantus .COMPLEX Diabetes Solostar U-100 Insulin) lisinopril 2.5 mg tablet 2.5 mg PO DIRECTED High blood 03/31/22 03/31/22 pressure promethazine 25 mg tablet 25 mg PO DIRECTED Nausea & 03/31/22 03/31/22 vomiting spironolactone 50 mg tablet 50 mg PO DIRECTED High blood 03/31/22 03/31/22 pressure tizanidine 4 mg tablet 4 mg PO DIRECTED neuropathy
[2023-04-28 17:13] LABS: Basophils % 0.4 % (0.1-2.0); Eosinophils # 0.1 K/mm3 (0.0-0.4); Eosinophils % 1.2 % (0.1-12.0); Hematocrit 39.1 % (37.0-47.0); Lymphocytes % 29.2 % (10-50); Mean Corpuscular HGB Conc 35.9 g/dL (31.8-35.4); Mean Corpuscular Hemoglobin 33.8 pg (27.0-31.2); Mean Corpuscular Volume 94.2 fl (81-99); Mean Platelet Volume 8.4 fl (7.4-10.4); Monocytes # 0.3 K/mm3 (0.1-1.0); Monocytes % 3.8 % (1.7-9.3); Neutrophils # 4.5 K/mm3 (1.8-7.8); Neutrophils % 65.4 % (37.0-80.0); Platelet Count 195 K/mm3 (142-424); Red Blood Count 4.14 M/mm3 (4.20-5.40); Red Cell Distribution Width 13.4 % (11.5-17.5); White Blood Count 6.9 K/mm3 (4.8-10.8)
[2023-04-28 17:20] LABS: Chloride 108 mmol/L (98-107); Potassium 4.2 mmoL/L (3.5-5.1); Sodium 141 mmol/L (136-145)
[2023-04-28 17:23] LABS: Alanine Aminotransferase 26 U/L (12-78); Albumin Level 5.1 g/dl (3.5-5.0); Albumin/Globulin Ratio 1.4 (1.1-1.8); Alkaline Phosphatase 75 U/L (38-126); Anion Gap 15.2 mEq/L (5-15); Aspartate Amino Transferase 36 U/L (14-36); Bilirubin,Total 0.5 mg/dl (0.2-1.3); Blood Urea Nitrogen 18 mg/dl (7-17); Carbon Dioxide 22 mmol/L (22.0-30.0); Creatinine Clearance Estimated 52 mL/min (50-200); Estimated Glomerular Filt Rate 56 ml/min (>60); GFR (African American) 68 ML/MIN (>60); Globulin 3.7 g/dL (1.3-3.2); Total Protein,Serum 8.8 g/dl (6.3-8.2)
[2023-04-28 17:24] LABS: Calcium 9.4 mg/dl (8.4-10.2); Glucose 168 mg/dl (74-100)
== END 2023-04-28 20:05 | disposition home or self-care (01) ==
PROVIDERS: Emergency Provider Emergency Medicine; PCP Family Medicine
DX: G44.89 Other headache syndrome (principal); F17.210 Nicotine dependence, cigarettes, uncomplicated; J45.909 Unspecified asthma, uncomplicated; I10 Essential (primary) hypertension; E11.9 Type 2 diabetes mellitus without complications; Z79.4 Long term (current) use of insulin
CPT/HCPCS: 70450; 70496; 80053; 85025; 93005; 96361; 96374; 96375; 99285; J1790; Q9967

== ENCOUNTER 2023-05-06 13:12 | Observation (INO) | payer MEDICAID, SELFPAY ==
[2023-05-06] VITALS (19 sets, daily range): BP systolic 97–153; BP diastolic 50–118; PULSE 56–97; RESP 18–20; TEMP 36.5–36.7; O2SAT 97–100; BMI 22.4; BMI 23.6
--- NOTE | 2023-05-06 13:31 | CT_ITS ---
FINAL REPORT CLINICAL HISTORY: fall, head injury, LOC, vertigo FINDINGS: CT CERVICAL SPINE Axial CT images were performed through the cervical spine. Coronal and sagittal reformats were submitted and reviewed. This study was performed with techniques to keep radiation doses as low as reasonably achievable (ALARA). Individualized dose reduction techniques using automated exposure control or adjustment of mA and/or kV according to the patient's size were employed. FINDINGS: There is no acute fracture or subluxation. The vertebral alignment is normal. The prevertebral soft tissues are unremarkable. The there are moderate degenerative changes with multilevel disc osteophyte complexes. There is mild central canal stenosis at C5-C6 and C6-C7. There is multilevel neural foraminal narrowing. The facets are normally aligned. There is a 10 mm left thyroid nodule. There is postoperative change in the upper thoracic spine. Limited images of the lung apices are unremarkable. IMPRESSION: No acute fracture. Reviewed, Interpreted and Dictated by Morteza Curry III, MD Transcribed by Himanshu Landrum Authenticated and [facility]
--- NOTE | 2023-05-06 13:31 | CT_ITS ---
FINAL REPORT CLINICAL HISTORY: fall, head injury, LOC, vertigo COMPARISON: April 28, 2023 FINDINGS: Axial images of the head were obtained without contrast. Coronal reformatted images were also obtained.This study was performed with techniques to keep radiation doses as low as reasonably achievable (ALARA). Individualized dose reduction techniques using automated exposure control or adjustment of mA and/or kV according to the patient's size were employed. There is no evidence of intracranial hemorrhage or mass. The ventricular size is within normal limits. There is no evidence of shift of the midline structures. No abnormal extra axial fluid collection is identified. No skull abnormality is seen on the bone window images. There is right parietal scalp soft tissue swelling. IMPRESSION: No acute intracranial abnormality. Reviewed, Interpreted and Dictated by Morteza Curry III, MD Transcribed by Himanshu Landrum Authenticated and [facility]
--- NOTE | 2023-05-06 13:37 | HMH.EDGENADL ---
Discharge Plan Disposition Patient Disposition: Admitted Chief Complaint: Fall Prescriptions Prescriptions: No Action bupropion HCl 150 mg tablet sustained-release 12 hr 150 mg PO DAILY tizanidine 4 mg tablet 4 mg PO DIRECTED amlodipine 5 mg tablet 5 mg PO DIRECTED diazepam 2 mg tablet 2 mg PO DIRECTED promethazine 25 mg tablet 25 mg PO DIRECTED aspirin 81 mg tablet,chewable 81 mg PO DAILY allopurinol 300 mg tablet 300 mg PO DIRECTED gabapentin 100 mg capsule 100 mg PO DIRECTED lisinopril 2.5 mg tablet 2.5 mg PO DIRECTED spironolactone 50 mg tablet 50 mg PO DIRECTED insulin glargine [Lantus Solostar U-100 Insulin] 100 unit/mL (3 mL) insulin pen See Rx Instructions .ROUTE .COMPLEX Rx Instructions: units per MD daily benzonatate 100 mg capsule 100 mg PO TID PRN (Reason: cough) Qty: 10 0RF methylprednisolone [Medrol (Alex)] 4 mg tablets,dose pack See Rx Instructions .Route .COMPLEX 6 Days Qty: 21 0RF Rx Instructions: taper pack; Referrals Follow up/Referrals: Lupillo Garcia [Primary Care Provider] - See instructions Activity Restrictions/Add. Instructions Additional Instructions/Restrictions: You were evaluated in the emergency department today. Please nut picker the meclizine prescribed to you by your primary care provider. Take it as needed for symptoms. Hydrate is much as possible. Return to the emergency department for new or worsening symptoms. Clinical Impressions Clinical Impression: Vertigo, Fall, VIOLA (acute kidney injury) Discharge ED Provider: Tamie Amado General Adult HPI <Tamie Amado DO - Last Filed: 05/06/23 15:12> General Chief complaint: Fall Stated complaint: AO10, dizziness, head pain Time Seen by Provider: 05/06/23 13:28 Mode of Arrival: Wheelchair Source of Information: Patient Limitations: No Limitations Description of Symptoms (Recalled from ER Triage Doc. by RN): pt has been having dizzy spells since friday was at the PCP office this morning and given a script for meclizine but has not taken any yet. while at pcp office patient fell out of wheelchair onto the floor/concrete surface, no loc or neck and back pain. pcp wants her to have head ct. pt is very anxious and tearful upon triage History of Present Illness HPI narrative: This patient is a 63-year-old female with a history of chronic pain on chronic opiates, hypertension, diabetes, migraines, and previous bouts of vertigo presenting to the emergency department from her primary care provider's office with concern that she had a fall. Patient reports she was being seen there for vertigo that has been going on since Friday. She describes it as a sensation that the room is spinning. She denies any vision changes, numbness, tingling, unilateral weakness, or other concerns with this. She does note that she has had nausea and vomiting without ability to keep much down given her vertigo. She states they prescribed her meclizine there, but she has not picked it up or taken it yet. While she was in clinic, she notes that she fell out of her chair, hitting the right side of her head on the ground. She states that she thinks that she may have blacked out. No other concerns noted at this time. Related Data Home Medications Medication Instructions Recorded Confirmed allopurinol 300 mg tablet 300 mg PO DIRECTED . 03/31/22 03/31/22 amlodipine 5 mg tablet 5 mg PO DIRECTED nerves 03/31/22 03/31/22 aspirin 81 mg chewable tablet 81 mg PO DAILY CAD 03/31/22 03/31/22 bupropion HCl 150 mg tablet,12 hr 150 mg PO DAILY Depression 03/31/22 03/31/22 sustained-release diazepam 2 mg tablet 2 mg PO DIRECTED Asthma 03/31/22 03/31/22 gabapentin 100 mg capsule 100 mg PO DIRECTED neuropathy 03/31/22 03/31/22 insulin glargine 100 unit/mL (3 See Rx Instructions .Route 03/31/22 03/31/22 mL) subcutaneous pen (Lantus .C
--- NOTE | 2023-05-06 13:49 | ECG_ITS ---
APPROVED REPORT Exam: Resting ECG HR:72 bpm ECG Measurements Heart Rate 72 AXES WA 147 P 27 QRSd 90 QRS 24 QT 337 T 16 QTc 361 Conclusion SINUS RHYTHM NONSPECIFIC T-WAVE ABNORMALITY BORDERLINE ECG UNCONFIRMED REPORT Electronically signed by : Jose Delarosa MD 05/08/2023 21:41:58
[2023-05-06 14:21] LABS: Basophils # 0.1 K/mm3 (0-0.2); Basophils % 0.7 % (0.1-2.0); Eosinophils # 0.2 K/mm3 (0.0-0.4); Eosinophils % 2.1 % (0.1-12.0); Hematocrit 41.1 % (37.0-47.0); Hemoglobin 14.5 g/dL (12.2-16.2); Lymphocytes # 3.1 K/mm3 (0.7-4.5); Lymphocytes % 33.5 % (10-50); Mean Corpuscular HGB Conc 35.4 g/dL (31.8-35.4); Mean Corpuscular Hemoglobin 33.9 pg (27.0-31.2); Mean Corpuscular Volume 95.7 fl (81-99); Mean Platelet Volume 8.4 fl (7.4-10.4); Monocytes # 0.4 K/mm3 (0.1-1.0); Monocytes % 4.8 % (1.7-9.3); Neutrophils # 5.4 K/mm3 (1.8-7.8); Platelet Count 217 K/mm3 (142-424); Red Blood Count 4.29 M/mm3 (4.20-5.40); Red Cell Distribution Width 13.3 % (11.5-17.5); White Blood Count 9.1 K/mm3 (4.8-10.8)
[2023-05-06 14:33] LABS: Anion Gap 20.6 mEq/L (5-15); Blood Urea Nitrogen 33 mg/dl (7-17); Calcium 9.5 mg/dl (8.4-10.2); Carbon Dioxide 21 mmol/L (22.0-30.0); Chloride 103 mmol/L (98-107); Creatinine Clearance Estimated 30 mL/min (50-200); Estimated Glomerular Filt Rate 33 ml/min (>60); GFR (African American) 39 ML/MIN (>60); Glucose 159 mg/dl (74-100); Potassium 3.6 mmoL/L (3.5-5.1); Sodium 141 mmol/L (136-145)
--- NOTE | 2023-05-06 15:29 | PC.NURSE ---
pt sleeping in bed, call light at bs
[2023-05-06 15:56] LABS: Microscopic, Urine URINE MICROSCOPIC (MICROSCOPIC)
[2023-05-06 15:57] LABS: Appearance,Urine CLEAR (Clear); Bilirubin,Urine Negative (Negative); Blood, Urine TRACE-I (Negative); Color,Urine YELLOW (Yellow); Glucose,Urine (UA) Negative (Negative); Ketones,Urine Negative (Negative); Leukocyte Esterase,Urine Negative (Negative); Nitrate,Urine Negative (Negative); PH,Urine 5.5 (5.0-8.5); Protein,Urine Negative (Negative); Specific Gravity, Urine >= 1.030 (1.005-1.030); Urobilinogen,Urine 0.2 EU/dl (0.2)
[2023-05-06 16:19] LABS: Bacteria,Urine 1+ /lpf; RBC,Urine Occasional #/hpf (0-3); WBC,Urine Occasional #/hpf (0-3)
--- NOTE | 2023-05-06 17:16 | PC.NURSE ---
ER Md spoke with hospitalist regarding patient admission. pt has been accepted and [facility] notified
--- NOTE | 2023-05-06 17:39 | PC.NURSE ---
Called report to Charline PETTY on 2nd floor and answered all questions
--- NOTE | 2023-05-06 17:41 | PC.NURSE ---
[id number] RECEIVED REPORT FROM DANGELO RN/ED NURSE. PATIENT DIAGNOSIS S/P FALL AT DOC OFFICE. NO LOC. NO INJURIES/VIOLA/VERTIG0
--- NOTE | 2023-05-06 17:43 | PC.NURSE ---
1742 PATIENT ARRIVED TO THE FLOOR VIA W/C. ADMITTED TO ROOM 213.
--- NOTE | 2023-05-06 17:43 | PC.NURSE ---
arrived to floor by w/c from ED
--- NOTE | 2023-05-06 19:30 | EXP.HP ---
History of Present Illness *Admission Date: 05/06/23 *Reason for visit:: vertigo & VIOLA *History of present illness: 63 year old female presented to the ED from her PCP for c/o fall. Pt states she was at her PCP to obtain a refill of her gabapentin. Pt also states she has had dizziness since last Friday but has not been able to get a ride to the hospital. She states that at her PCP she felt dizzy and was needing to shield her eyes from the light. During the fall pt states she struck the right side of her head and reports LOC. PMHX of HTN, HLD, DM, chronic pain, and vertigo. I reviewed her ED workup which reveals an VIOLA with a creatinine of 1.60. Baseline is 1.0. The ED performed a CT of the head and cervical spine. CT reviewed by me and reveals no hemorrhage, trauma, or acute changes, as well as no fractures. She had a venogram CT on 04/28/23 that was unremarkable for any venous thrombosis as well. The ED physician consulted the hospitalist team for further medical management. The pt was accepted. I admitted the patient to the medical surgical floor. She will receive gentle hydration, hold nephrotoxic medications, meclizine, and additional medication if needed for her vertigo. Upon admission the pt c/o dizziness but her neurological exam is unremarkable. [facility] Disclaimer: The information contained in this section may have been updated after the patient was seen, as this information can be updated by other users. 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 (Updated 05/06/23 @ 19:32 by GUZMAN Sawyer) Anxiety Asthma Depression Diabetes mellitus, type 2 Hypertension Migraine Surgical History History of section History of cholecystectomy History of tonsillectomy History of tubal ligation Family History (Updated 05/06/23 @ 18:21 by Dalia Nava RN) Other Cancer Heart failure Hypertension Social History (Updated 05/06/23 @ 18:21 by Dalia Nava, JOVANNY) Smoking Status: Never smoker alcohol intake: never current occupational status: other Travel in the last 8 weeks: None Review of Systems ENT Ears, Nose, Mouth, and Throat: Reports dizziness *Cardiovascular Cardiovascular: Reports system reviewed and no additional complaints, except as documented *Respiratory Respiratory: Reports system reviewed and no additional complaints, except as documented *Gastrointestinal Gastrointestinal: Reports system reviewed and no additional complaints, except as documented *Genitourinary Genitourinary: Reports system reviewed and no additional complaints, except as documented *Musculoskeletal Musculoskeletal: Reports system reviewed and no additional complaints, except as documented *Neurologic Neurologic: Reports dizziness Meds Home Medications and Allergies Home Medications Medication Instructions Recorded Confirmed Type allopurinol 300 mg tablet 300 mg PO DAILY . 03/31/22 05/06/23 History amlodipine 5 mg tablet 5 mg PO DAILY bp 03/31/22 05/06/23 History aspirin 81 mg chewable tablet 81 mg PO DAILY CAD 03/31/22 05/06/23 History bupropion HCl 150 mg tablet,12 hr 150 mg PO BID Depression 03/31/22 05/06/23 History sustained-release gabapentin 100 mg capsule 100 mg PO TID neuropathy 03/31/22 05/06/23 History insulin glargine 100 unit/mL (3 15 unit SQ DAILY Diabetes 03/31/22 05/06/23 History mL) subcutaneous pen (Lantus Solostar U-100 Insulin) lisinopril 2.5 mg tablet 2.5 mg PO DAILY High blood pressure 03/31/22 05/06/23 History promethazine 25 mg tablet 25 mg PO QID PRN Nausea & vomiting 03/31/22 05/06/23 History spironolactone 50 mg tablet 50 mg PO DAILY High blood pressure 03/31/22 05/06/23 History tizanidine 4 mg tablet 4 mg PO BID neuropathy 03/31/22 05/06/23 History benzonatate 100 mg capsule 100 mg PO TID PRN cough #10 caps 09/01/22 05/06/23 Rx atorvastatin 40 mg tablet 40 mg PO HS 05/06/23 05/06/23 History famotidine 20 mg tablet 20 mg PO DAILY 05/06/23
[2023-05-06 19:46] LABS: POC Glucose,Bedside 113 (70-110)
[2023-05-06 22:56] LABS: Hemoglobin A1C 7.2 % (4.0-6.0)
[2023-05-07] VITALS (7 sets, daily range): BP systolic 83–178; BP diastolic 54–89; PULSE 51–96; RESP 16–18; TEMP 36.4–36.9; O2SAT 90–100; BMI 23.6
--- NOTE | 2023-05-07 03:35 | PC.NURSE ---
RESTING QUIETLY IN BED. NAD. NO COMPLAINTS VOICED . LAST BP 83/54. ASYMPTOMATIC.
[2023-05-07 05:01] LABS: POC Glucose,Bedside 127 (70-110)
[2023-05-07 05:56] LABS: Basophils # 0.1 K/mm3 (0-0.2); Basophils % 0.7 % (0.1-2.0); Eosinophils # 0.2 K/mm3 (0.0-0.4); Eosinophils % 2.6 % (0.1-12.0); Hematocrit 38.8 % (37.0-47.0); Hemoglobin 13.4 g/dL (12.2-16.2); Lymphocytes # 3.2 K/mm3 (0.7-4.5); Lymphocytes % 39.5 % (10-50); Mean Corpuscular HGB Conc 34.5 g/dL (31.8-35.4); Mean Corpuscular Volume 95.5 fl (81-99); Mean Platelet Volume 8.4 fl (7.4-10.4); Monocytes # 0.3 K/mm3 (0.1-1.0); Monocytes % 3.7 % (1.7-9.3); Neutrophils # 4.3 K/mm3 (1.8-7.8); Neutrophils % 53.5 % (37.0-80.0); Platelet Count 179 K/mm3 (142-424); Red Blood Count 4.06 M/mm3 (4.20-5.40); Red Cell Distribution Width 13.3 % (11.5-17.5); White Blood Count 8.1 K/mm3 (4.8-10.8)
[2023-05-07 06:14] LABS: Anion Gap 16.7 mEq/L (5-15); Blood Urea Nitrogen 24 mg/dl (7-17); Calcium 9.3 mg/dl (8.4-10.2); Carbon Dioxide 18 mmol/L (22.0-30.0); Chloride 108 mmol/L (98-107); Creatinine Clearance Estimated 41 mL/min (50-200); Estimated Glomerular Filt Rate 45 ml/min (>60); GFR (African American) 55 ML/MIN (>60); Glucose 132 mg/dl (74-100); Potassium 3.7 mmoL/L (3.5-5.1); Sodium 139 mmol/L (136-145)
[2023-05-07 09:02] LABS: POC Glucose,Bedside 178 (70-110)
--- NOTE | 2023-05-07 09:31 | HMH.PHAINT1 ---
Pharmacy Intervention Comments: home medication list verified using list form outpatient pharmacy
[2023-05-07 11:47] LABS: POC Glucose,Bedside 156 (70-110)
[2023-05-07 12:07] LABS: Vitamin B12 249 pg/mL (239-931)
--- NOTE | 2023-05-07 14:18 | HMH.PTEV ---
Physical Therapy Evaluation Rehab PT IP Evaluation Start: 05/07/23 10:24 Freq: ONCE Status: Active Protocol: Document 05/07/23 14:11 PHORNE (Rec: 05/07/23 14:17 PHORNE [id number]) Subjective/History History History 63 yowf adm to [facility] with sudden onset vertigo and VIOLA. She reports she lives multiple family members, no PADDY the home, and she is generally independent with all mobility at baseline without AD. She reports vertigo is constant, non-positional and unchanging. She reports nausea as well. Subjective Subjective Currently she c/o same vertigo as upon presentation for adm. New diagnosis of cancer in past 12 No months? Rehab PT IP Eval Objective Appearance Patient Behavior Appropriate Patient Orientation Person,Place,Time Difficulty following instructions none Speech Pattern Clear Ambulation Patient Able to Ambulate Yes Ambulation Observation IP General Gait Pattern Observation Wide Based Gait Ambulation Distance (feet) 30 Ambulation Assistive Device None Ambulation Ability Supervision/Stand by Balance Ability to Arise Able, uses arms to help Sitting Balance Steady, safe Standing Balance Unsteady Dynamic Sitting Balance Ability Good Dynamic Standing Balance Ability Fair Transfers Bed Transfer Ability Supervision/Stand by Chair Transfer Ability Supervision/Stand by Sit to Stand Bed Transfer Ability Supervision/Stand by Sit to Stand Chair Transfer Ability Supervision/Stand by ROM All Extremities PT ROM Status WFL MMT All Extremities PT MMT WFL Rehab PT IP prob,goals,plan Problems Date of Evaluation: 05/07/23 Discharge Plan PT Discharge Plan Pt is currently independent with mobility and vertigo is non-positional, likely Meniere 's disease related. She is appropriate to return home once medically stable for d/c. with family support. Eval Complexity Eval Charge Codes 16757 - High Complexity PHYSICIAN CERTIFICATION: I certify the specified therapy services for Tyra Romero are required, authorized, and reviewed every 30 days.
--- NOTE | 2023-05-07 14:52 | HMH.OTEV ---
OT Inpatient Evaluation Rehab OT IP Evaluation Start: 05/07/23 10:24 Freq: ONCE Status: Active Protocol: Document 05/07/23 14:50 YAMILKA (Rec: 05/07/23 14:52 [id number] Rehab OT IP Assessment Subjective History Pt oriented x 3 on arrival. Pt agreeable to engage in therapy session. Pt is a 63 yowf adm to [facility] with sudden onset vertigo and VIOLA. She reports she lives multiple family members, no PADDY the home, and she is generally independent with all mobility at baseline without AD. SHe also claims normally she is independent with all ADLs and IADLs. She still drives. She reports vertigo is constant, non-positional and unchanging. She reports nausea as well. Subjective Pt complaining of dizziness upon arrival. Objective Patient Orientation Person,Place,Birthday Upper Extremity Gross ROM WFL Bed Mobility bed mobility-scooting,bed mobility - supine/sit Assist Level Supervision/Stand by Transfer Training Sit/Stand Transfer Assist Level Supervision/Stand by Lower Body Dressing Ability Standby Assistance Performing Toilet Hygiene Ability Standby Assistance Overall Commode/Toilet Transfer Ability Standby Assistance Commode/Toilet Transfer Technique Sit to/from Ambulatory Rehab OT IP prob,goals,plan Problems Date of Evaluation: 05/07/23 Rehab Potential Rehab Potential Innapropriate for Skilled Therapy Discharge Plan OT Discharge Plan At this time, pt appears to be at baseline with functional transfers and ADL independence . Pt can return home with family once she is medically stable per physician. Eval Complexity Eval Charge Codes 08154 - Low Complexity PHYSICIAN CERTIFICATION: I certify the specified therapy services for Tyra Romero are required, authorized, and reviewed every 30 days.
--- NOTE | 2023-05-07 15:49 | EXP.PN ---
Subjective *Date: 05/07/23 *Time: 15:49 Interval history: Patient was seen and evaluated at the bedside. denies chest pain, shortness of breath, nausea, vomiting, abdominal pain. Patient does not have any complaints at this time. feels better overall Exam Data for Last 24 hours Vital signs and Labs for Last 24 Hours: Temp Pulse Resp BP Pulse Ox O2 Del Method 98.5 F 96 H 17 135/68 98 Room Air 05/07/23 15:03 05/07/23 15:03 05/07/23 15:03 05/07/23 15:03 05/07/23 15:03 05/07/23 15:03 Laboratory Results - last 24 hr 05/06/23 13:35: Urine Color Yellow, Urine Appearance Clear, Urine pH 5.5, Ur Specific [place] >= 1.030, Urine Protein Negative, Urine Glucose (UA) Negative, Urine Ketones Negative, Urine Blood Trace-i, Urine Nitrate Negative, Urine Bilirubin Negative, Urine Urobilinogen 0.2, Ur Leukocyte Esterase Negative, Urine RBC Occasional, Urine WBC Occasional, Ur Squamous Epith Cells 3-5, Urine Bacteria 1+ 05/06/23 18:54: POC Glucose 113 H 05/06/23 21:12: Hemoglobin A1c 7.2 H 05/07/23 04:54: POC Glucose 127 H 05/07/23 05:41: WBC 8.1, RBC 4.06 L, Hgb 13.4, Hct 38.8, MCV 95.5, MCH 33.0 H, MCHC 34.5, RDW 13.3, Plt Count 179, MPV 8.4, Neut % (Auto) 53.5, Lymph % (Auto) 39.5, [place] % (Auto) 3.7, Eos % (Auto) 2.6, Baso % (Auto) 0.7, Neut # (Auto) 4.3, Lymph # (Auto) 3.2, [place] # (Auto) 0.3, Eos # (Auto) 0.2, Baso # (Auto) 0.1, Sodium 139, Potassium 3.7, Chloride 108 H, Carbon Dioxide 18 L, Anion Gap 16.7 H, BUN 24 H D, Creatinine 1.20 H D, Estimated Creat Clear 41, Estimated GFR 45 L, Est GFR ( Amer) 55 L D, Glucose 132 H, Calcium 9.3, Vitamin B12 249 05/07/23 08:40: POC Glucose 178 H 05/07/23 11:16: POC Glucose 156 H I & O for Last 24 hours: Intake & Output 05/04/23 05/05/23 05/06/23 05/07/23 23:59 23:59 23:59 23:59 Intake Total 200 / 680 1208 / 1208 Output Total 0 / 0 Balance 199 / 679 1208 / 1208 Weight 54.941 kg 54.431 kg Constitutional Constitutional: no acute distress *Routine HEENT Exam Head: Present normocephalic Eye: Present EOMI and PERRL ENT: Present mucous membranes moist *Routine Neck Exam Neck: Present supple; Absent lymphadenopathy *Routine Respiratory Exam Respiratory: Present CTA bilaterally *Routine Cardiovascular Exam Cardiovascular: Present RRR *Routine Abdominal Exam Abdominal: Present soft and normoactive bowel sounds; Absent tenderness *Routine Extremities Exam Extremities: Absent cyanosis, clubbing or edema *Routine Skin Exam Skin: Present warm; Absent rash *Routine Neurological Exam Neurological: Present alert and oriented X3 Assessment and Plan *Assessment and plan (1) Vertigo: Status: Acute Category: Medical Code(s): R42 - Dizziness and giddiness (2) Fall: Status: Acute Category: Medical Code(s): W19.XXXA - Unspecified fall, initial encounter (3) VIOLA (acute kidney injury): Status: Acute Category: Medical Code(s): N17.9 - Acute kidney failure, unspecified (4) Diabetes: Status: Acute Qualifiers: Diabetes mellitus complication status: with other specified complication Diabetes mellitus meterman insulin use: unspecified chcf insulin use status Diabetes mellitus type: type 2 Qualified Code(s): E11.69 - Type 2 diabetes mellitus with other specified complication Category: Medical Code(s): E11.9 - Type 2 diabetes mellitus without complications (5) Lumbar radiculopathy: Status: Acute Category: Medical Code(s): M54.16 - Radiculopathy, lumbar region (6) Cervical disc disease: Status: Acute Category: Medical Code(s): M50.90 - Cervical disc disorder, unspecified, unspecified cervical region (7) Hypertension: Status: Acute Category: Medical Code(s): I10 - Essential (primary) hypertension (8) HLD (hyperlipidemia): Status: Acute Category: Medical Code(s): E78.5 - Hyperlipidemia, unspeci
--- NOTE | 2023-05-07 16:26 | P.PN_ITS ---
Subjective *Date: 05/07/23 *Time: 16:26 Interval history: Patient seen and evaluated at the bedside, patient denied chest pain shortness of breath nausea vomiting diarrhea constipation dysuria fever chills. Patient has not any complaints at this time Exam Data for Last 24 hours Vital signs and Labs for Last 24 Hours: Temp Pulse Resp BP Pulse Ox O2 Del Method 98.5 F 96 H 17 135/68 98 Room Air 05/07/23 15:03 05/07/23 15:03 05/07/23 15:03 05/07/23 15:03 05/07/23 15:03 05/07/23 15:03 Laboratory Results - last 24 hr 05/06/23 18:54: POC Glucose 113 H 05/06/23 21:12: Hemoglobin A1c 7.2 H 05/07/23 04:54: POC Glucose 127 H 05/07/23 05:41: WBC 8.1, RBC 4.06 L, Hgb 13.4, Hct 38.8, MCV 95.5, MCH 33.0 H, MCHC 34.5, RDW 13.3, Plt Count 179, MPV 8.4, Neut % (Auto) 53.5, Lymph % (Auto) 39.5, [place] % (Auto) 3.7, Eos % (Auto) 2.6, Baso % (Auto) 0.7, Neut # (Auto) 4.3, Lymph # (Auto) 3.2, [place] # (Auto) 0.3, Eos # (Auto) 0.2, Baso # (Auto) 0.1, Sodium 139, Potassium 3.7, Chloride 108 H, Carbon Dioxide 18 L, Anion Gap 16.7 H , BUN 24 H D, Creatinine 1.20 H D, Estimated Creat Clear 41, Estimated GFR 45 L, Est GFR ( Amer) 55 L D, Glucose 132 H, Calcium 9.3, Vitamin B12 249 05/07/23 08:40: POC Glucose 178 H 05/07/23 11:16: POC Glucose 156 H I & O for Last 24 hours: Intake & Output 05/04/23 05/05/23 05/06/23 05/07/23 23:59 23:59 23:59 23:59 Intake Total 200 / 680 1208 / 1208 Output Total 0 / 0 Balance 199 / 679 1208 / 1208 Weight 54.941 kg 54.431 kg Constitutional Constitutional: no acute distress *Routine HEENT Exam Head: Present normocephalic Eye: Present EOMI and PERRL ENT: Present mucous membranes moist *Routine Neck Exam Neck: Present supple; Absent lymphadenopathy *Routine Respiratory Exam Respiratory: Present CTA bilaterally *Routine Cardiovascular Exam Cardiovascular: Present RRR *Routine Abdominal Exam Abdominal: Present soft and normoactive bowel sounds; Absent tenderness *Routine Extremities Exam Extremities: Absent cyanosis, clubbing or edema *Routine Skin Exam Skin: Present warm; Absent rash *Routine Neurological Exam Neurological: Present alert and oriented X3
[2023-05-07 17:10] LABS: POC Glucose,Bedside 119 (70-110)
--- NOTE | 2023-05-07 17:38 | PC.NURSE ---
pt has slept majority of the shift. held morning gabapentin and zanaflex due to pt falling asleep mid conversation. c/o of nausea off and on t/o shift. pt ambulate SB-x1 assist stops at times stating pt gets bouts of vertigo. vss and orthostatic b/p stable. ordered MRI, rad contacted this nurse stating a MRI cannot be done at this time due to an unknown implant in pts back. kitchen stewardess contacted pts pcp with no results. notified monty and okay with no mri. cb within reach no concerns at this time.
--- NOTE | 2023-05-07 18:08 | PC.NURSE ---
pts sister neha called for info about pt. per pt okay to give info to sister neha
[2023-05-07 21:03] LABS: POC Glucose,Bedside 158 (70-110)
[2023-05-08] VITALS (7 sets, daily range): BP systolic 109–152; BP diastolic 66–92; PULSE 64–92; RESP 16–18; TEMP 36.4–36.9; O2SAT 94–99; BMI 23.6; BMI 23.3
--- NOTE | 2023-05-08 03:50 | PC.NURSE ---
Pt is alert and oriented x4, Pt has complained of nausea once this shift and received anti-nausea medication which pt stated helped. Pt required insulin @ 2000 for a glucose level of 158, Pt Pt seems to be doing better with dizziness and ambulates well with 1 assist. Pt denies pain and needs at this time.
[2023-05-08 05:14] LABS: POC Glucose,Bedside 134 (70-110)
[2023-05-08 06:26] LABS: Basophils % 0.4 % (0.1-2.0); Eosinophils # 0.1 K/mm3 (0.0-0.4); Eosinophils % 1.3 % (0.1-12.0); Hematocrit 38.1 % (37.0-47.0); Hemoglobin 13.7 g/dL (12.2-16.2); Lymphocytes # 2.4 K/mm3 (0.7-4.5); Lymphocytes % 24.7 % (10-50); Mean Corpuscular HGB Conc 35.9 g/dL (31.8-35.4); Mean Corpuscular Hemoglobin 33.9 pg (27.0-31.2); Mean Corpuscular Volume 94.3 fl (81-99); Mean Platelet Volume 8.4 fl (7.4-10.4); Monocytes # 0.5 K/mm3 (0.1-1.0); Monocytes % 4.6 % (1.7-9.3); Neutrophils # 6.7 K/mm3 (1.8-7.8); Neutrophils % 68.9 % (37.0-80.0); Platelet Count 173 K/mm3 (142-424); Red Blood Count 4.04 M/mm3 (4.20-5.40); Red Cell Distribution Width 13.3 % (11.5-17.5); White Blood Count 9.7 K/mm3 (4.8-10.8)
[2023-05-08 06:31] LABS: Anion Gap 16.9 mEq/L (5-15); Blood Urea Nitrogen 16 mg/dl (7-17); Calcium 8.8 mg/dl (8.4-10.2); Carbon Dioxide 18 mmol/L (22.0-30.0); Chloride 108 mmol/L (98-107); Creatinine Clearance Estimated 45 mL/min (50-200); Estimated Glomerular Filt Rate 50 ml/min (>60); GFR (African American) 61 ML/MIN (>60); Glucose 144 mg/dl (74-100); Potassium 3.9 mmoL/L (3.5-5.1); Sodium 139 mmol/L (136-145)
--- NOTE | 2023-05-08 11:31 | SW/DCPLANNER ---
Due to answers on PCS4 assessment I have provided this patient w/ an [facility] Resource List. Patient did not have any further questions/needs at this time. I will continue to follow up w/ patient until medically stable for discharge. Discharge date is unknown at this time.
[2023-05-08 11:42] LABS: POC Glucose,Bedside 170 (70-110)
--- NOTE | 2023-05-08 14:30 | PC.NURSE ---
Patient complained of nausea once. Nausea relieved with PRN medication. Patient resting comfortably at this time.
[2023-05-08 16:10] LABS: POC Glucose,Bedside 142 (70-110)
--- NOTE | 2023-05-08 17:54 | PC.NURSE ---
Patient complained of nausea once this shift. patient has been resting comfortably and vital signs stable
[2023-05-08 20:20] LABS: POC Glucose,Bedside 199 (70-110)
[2023-05-09 04:00] VITALS: BP 163/88; PULSE 85; RESP 16; TEMP 36.6; O2SAT 97; BMI 23.3
[2023-05-09 05:41] LABS: POC Glucose,Bedside 175 (70-110)
--- NOTE | 2023-05-09 05:56 | PC.NURSE ---
pt has rested well t/o shift, with no complaints. she took a shower this morning and is back in bed resting comfortably.
[2023-05-09 06:27] LABS: Blood Urea Nitrogen 14 mg/dl (7-17); Calcium 9.5 mg/dl (8.4-10.2); Carbon Dioxide 17 mmol/L (22.0-30.0); Chloride 106 mmol/L (98-107); Creatinine Clearance Estimated 45 mL/min (50-200); Estimated Glomerular Filt Rate 50 ml/min (>60); GFR (African American) 61 ML/MIN (>60); Glucose 182 mg/dl (74-100); Sodium 140 mmol/L (136-145)
[2023-05-09 06:45] LABS: Basophils # 0.1 K/mm3 (0-0.2); Basophils % 0.6 % (0.1-2.0); Eosinophils # 0.2 K/mm3 (0.0-0.4); Eosinophils % 1.9 % (0.1-12.0); Hematocrit 43.3 % (37.0-47.0); Hemoglobin 14.8 g/dL (12.2-16.2); Lymphocytes # 3.2 K/mm3 (0.7-4.5); Lymphocytes % 31.3 % (10-50); Mean Corpuscular HGB Conc 34.3 g/dL (31.8-35.4); Mean Corpuscular Hemoglobin 33.1 pg (27.0-31.2); Mean Corpuscular Volume 96.6 fl (81-99); Mean Platelet Volume 8.5 fl (7.4-10.4); Monocytes # 0.5 K/mm3 (0.1-1.0); Monocytes % 4.8 % (1.7-9.3); Neutrophils # 6.3 K/mm3 (1.8-7.8); Neutrophils % 61.4 % (37.0-80.0); Platelet Count 170 K/mm3 (142-424); Red Blood Count 4.48 M/mm3 (4.20-5.40); Red Cell Distribution Width 13.4 % (11.5-17.5); White Blood Count 10.3 K/mm3 (4.8-10.8)
[2023-05-09 08:00] VITALS: BP 134/84; PULSE 89; RESP 18; TEMP 36.9; O2SAT 98
--- NOTE | 2023-05-09 08:54 | PC.NURSE ---
COURTESY TECH NOTE; ROUNDED ON PT, PT DENIED NEED FOR DRINK, ASSISTANCE WITH RESTROOM, AND NEED TO REPOSITION IN BED. CALL LIGHT WITHIN REACH, NO FURTHER REQUESTS AT THIS TIME TANA MICHEAL
[2023-05-09 11:59] LABS: POC Glucose,Bedside 145 (70-110)
--- NOTE | 2023-05-09 14:14 | EXP.PN ---
Subjective *Date: 05/08/23 *Time: 14:14 Interval history: Patient seen and evaluated at the bedside, still complains of dizziness, patient denied chest pain shortness of breath nausea vomiting diarrhea constipation dysuria fever chills. Exam Data for Last 24 hours Vital signs and Labs for Last 24 Hours: Temp Pulse Resp BP Pulse Ox O2 Del Method 98.5 F 89 18 134/84 98 Room Air 05/09/23 08:00 05/09/23 08:00 05/09/23 08:00 05/09/23 08:00 05/09/23 08:00 05/09/23 13:00 Laboratory Results - last 24 hr 05/08/23 15:58: POC Glucose 142 H 05/08/23 20:11: POC Glucose 199 H 05/09/23 05:20: WBC 10.3, RBC 4.48, Hgb 14.8, Hct 43.3, MCV 96.6, MCH 33.1 H, MCHC 34.3, RDW 13.4, Plt Count 170, MPV 8.5, Neut % (Auto) 61.4, Lymph % (Auto) 31.3, [place] % (Auto) 4.8, Eos % (Auto) 1.9, Baso % (Auto) 0.6, Neut # (Auto) 6.3, Lymph # (Auto) 3.2, [place] # (Auto) 0.5, Eos # (Auto) 0.2, Baso # (Auto) 0.1, Sodium 140, Potassium 4.0, Chloride 106, Carbon Dioxide 17 L, Anion Gap 21.0 H, BUN 14, Creatinine 1.10 H, Estimated Creat Clear 45, Estimated GFR 50 L, Est GFR ( Amer) 61, Glucose 182 H D, Calcium 9.5 05/09/23 05:34: POC Glucose 175 H 05/09/23 11:48: POC Glucose 145 H I & O for Last 24 hours: Intake & Output 05/06/23 05/07/23 05/08/23 05/09/23 23:59 23:59 23:59 23:59 Intake Total 200 / 680 1974 960 / 1210 730 / 730 Output Total 1 / 1 0 / 0 0 / 0 Balance 199 / 679 1974 960 / 1210 730 / 730 Weight 54.941 kg 54.431 kg 54 kg 54 kg Constitutional Constitutional: no acute distress *Routine HEENT Exam Head: Present normocephalic Eye: Present EOMI and PERRL ENT: Present mucous membranes moist *Routine Neck Exam Neck: Present supple; Absent lymphadenopathy *Routine Respiratory Exam Respiratory: Present CTA bilaterally *Routine Cardiovascular Exam Cardiovascular: Present RRR *Routine Abdominal Exam Abdominal: Present soft and normoactive bowel sounds; Absent tenderness *Routine Extremities Exam Extremities: Absent cyanosis, clubbing or edema *Routine Skin Exam Skin: Present warm; Absent rash *Routine Neurological Exam Neurological: Present alert and oriented X3 Assessment and Plan *Assessment and plan (1) Vertigo: Status: Acute Category: Medical Code(s): R42 - Dizziness and giddiness (2) Fall: Status: Acute Category: Medical Code(s): W19.XXXA - Unspecified fall, initial encounter (3) VIOLA (acute kidney injury): Status: Acute Category: Medical Code(s): N17.9 - Acute kidney failure, unspecified (4) Diabetes: Status: Acute Qualifiers: Diabetes mellitus complication status: with other specified complication Diabetes mellitus mcfp insulin use: 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 Diabetes mellitus type: type 2 Qualified Code(s): E11.69 - Type 2 diabetes mellitus with other specified complication Category: Medical Code(s): E11.9 - Type 2 diabetes mellitus without complications (5) Lumbar radiculopathy: Status: Acute Category: Medical Code(s): M54.16 - Radiculopathy, lumbar region (6) Cervical disc disease: Status: Acute Category: Medical Code(s): M50.90 - Cervical disc disorder, unspecified, unspecified cervical region (7) Hypertension: Status: Acute Category: Medical Code(s): I10 - Essential (primary) hypertension (8) HLD (hyperlipidemia): Status: Acute Category: Medical Code(s): E78.5 - Hyperlipidemia, unspecified (9) CAD (coronary artery disease): Status: Acute Category: Medical Code(s): I25.10 - Atherosclerotic heart disease of [place] coronary artery without angina pectoris Plan Patient is a 23-year-old female who presented to hospital due to dizziness, fall vomiting diarrhea Assessment Vertigo, fall Acute kidney injury Diabetes mellitus Lumbar radiculopathy Hypertension Hyperlipidemia CAD
--- NOTE | 2023-05-09 14:18 | EXP.DC.SUM ---
General Admission date:: 05/06/23 Discharge date: 05/09/23 HPI HPI HPI: 63 year old female presented to the ED from her PCP for c/o fall. Pt states she was at her PCP to obtain a refill of her gabapentin. Pt also states she has had dizziness since last Friday but has not been able to get a ride to the hospital. She states that at her PCP she felt dizzy and was needing to shield her eyes from the light. During the fall pt states she struck the right side of her head and reports LOC. PMHX of HTN, HLD, DM, chronic pain, and vertigo. I reviewed her ED workup which reveals an VIOLA with a creatinine of 1.60. Baseline is 1.0. The ED performed a CT of the head and cervical spine. CT reviewed by me and reveals no hemorrhage, trauma, or acute changes, as well as no fractures. She had a venogram CT on 04/28/23 that was unremarkable for any venous thrombosis as well. The ED physician consulted the hospitalist team for further medical management. The pt was accepted. I admitted the patient to the medical surgical floor. She will receive gentle hydration, hold nephrotoxic medications, meclizine, and additional medication if needed for her vertigo. Upon admission the pt c/o dizziness but her neurological exam is unremarkable. Hospital Course Hospital Course Hospital Course: Patient was seen and evaluated at the bedside on the day of discharge. Patient is stable for discharge. Patient wishes to be discharged. All patient questions were answered and patient was given time to ask questions. Patient was discharged in stable condition. Patient is a 23-year-old female who presented to hospital due to dizziness, fall vomiting diarrhea Assessment Vertigo, fall Acute kidney injury Diabetes mellitus Lumbar radiculopathy Hypertension Hyperlipidemia CAD Plan Fall precautions Check orthostatic vitals - within normal limits CT head performed-negative for acute intracranial process Patient also complains she feels wobbly and has noticed vision changes while walking-order MRI Insulin sliding scale Resume home medications including amlodipine aspirin Lipitor, Aldactone Hold nebulized medications DVT prophylaxis- On heparin Exam Data for Last 24 hours Vital signs and Labs for Last 24 Hours: Temp Pulse Resp BP Pulse Ox O2 Del Method 98.5 F 89 18 134/84 98 Room Air 05/09/23 08:00 05/09/23 08:00 05/09/23 08:00 05/09/23 08:00 05/09/23 08:00 05/09/23 13:00 Laboratory Results - last 24 hr 05/08/23 15:58: POC Glucose 142 H 05/08/23 20:11: POC Glucose 199 H 05/09/23 05:20: WBC 10.3, RBC 4.48, Hgb 14.8, Hct 43.3, MCV 96.6, MCH 33.1 H, MCHC 34.3, RDW 13.4, Plt Count 170, MPV 8.5, Neut % (Auto) 61.4, Lymph % (Auto) 31.3, [place] % (Auto) 4.8, Eos % (Auto) 1.9, Baso % (Auto) 0.6, Neut # (Auto) 6.3, Lymph # (Auto) 3.2, [place] # (Auto) 0.5, Eos # (Auto) 0.2, Baso # (Auto) 0.1, Sodium 140, Potassium 4.0, Chloride 106, Carbon Dioxide 17 L, Anion Gap 21.0 H, BUN 14, Creatinine 1.10 H, Estimated Creat Clear 45, Estimated GFR 50 L, Est GFR ( Amer) 61, Glucose 182 H D, Calcium 9.5 05/09/23 05:34: POC Glucose 175 H 05/09/23 11:48: POC Glucose 145 H I & O for Last 24 hours: Intake & Output 05/06/23 05/07/23 05/08/23 05/09/23 23:59 23:59 23:59 23:59 Intake Total 200 / 680 1974 960 / 1210 730 / 730 Output Total 1 / 0 / 0 0 / 0 Balance 199 / 679 1974 221 960 / 1210 730 / 730 Weight 54.941 kg 54.431 kg 54 kg 54 kg Results Data Completed and Pending Labs on day of discharge: Labs from last 24 hours 05/09/23 05/09/23 05/09/23 11:48 05:34 05:20 WBC 10.3 RBC 4.48 Hgb 14.8 Hct 43.3 MCV 96.6 MCH 33.1 H MCHC 34.3 RDW 13.4 Plt Count 170 MPV 8.5 Neut % (Auto) 61.4 Lymph % (Auto) 31.3 [place] % (Auto) 4.8 Eos % (Auto) 1.9 Baso % (Auto) 0.6 Neut # (Auto) 6.3 Lymph # (Auto) 3.2 [place] # (Auto) 0.5 Eos # (Auto) 0.2 Baso # (Auto) 0.1 Sodium 140 Potassium 4.0
--- NOTE | 2023-05-12 15:03 | CARE MANAGER ---
Contacted patient related to hospital discharge. She states she doesn't feel worse, but doesn't feel any better. Discussed when to contact the doctor. 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 Denies questions or concerns. JOVANNY Mtz
== END 2023-05-09 14:08 | disposition home or self-care (01) ==
LOC: ER 17:15 → 2ND 17:28
PROVIDERS: Nurse Practitioner Critical Care Medicine; Admitting Provider Internal Medicine; Emergency Provider Emergency Medicine; PCP Family Medicine; Visit Provider Internal Medicine
DX: N17.9 Acute kidney failure, unspecified (principal); R42 Dizziness and giddiness; E11.69 Type 2 diabetes mellitus with other specified complication; M54.16 Radiculopathy, lumbar region; M50.90 Cervical disc disorder, unspecified, unspecified cervical region; I10 Essential (primary) hypertension; E78.5 Hyperlipidemia, unspecified; I25.10 Atherosclerotic heart disease of native coronary artery without angina pectoris; R29.6 Repeated falls; Z79.4 Long term (current) use of insulin; Z79.899 Other long term (current) drug therapy; W05.0XXA Fall from non-moving wheelchair, initial encounter; Z91.81 History of falling; Y92.531 Health care provider office as the place of occurrence of the external cause
CPT/HCPCS: 36415; 70450; 72125; 80048; 81001; 82607; 82962; 83036; 85025; 93005; 97163; 97165; 99285; G0378

== ENCOUNTER 2023-08-29 19:43 | Emergency (ER) | payer MEDICAID, SELFPAY ==
[2023-08-29 20:01] VITALS: BP 139/110; PULSE 91; RESP 18; TEMP 36.8; O2SAT 99; BMI 23.4
--- NOTE | 2023-08-29 20:44 | XR_ITS ---
PROCEDURE INFORMATION: Exam: XR Right Shoulder Exam date and time: 08/29/2023 8:43 PM Age: 63 years old Clinical indication: Pain; Shoulder; Right; Additional info: Right shoulder pain TECHNIQUE: Imaging protocol: Radiologic exam of the right shoulder. Views: 2 or more views. COMPARISON: CT CERVICAL SPINE WO CON 05/06/2023 2:59 PM FINDINGS: Bones/joints: No acute fracture or malalignment. Hydroxyapatite deposition at the anterior to the humeral head, likely within the biceps tendon. Mild acromioclavicular and glenohumeral joint osteoarthrosis. Soft tissues: Unremarkable. IMPRESSION: 1. No acute findings. 2. Suggestion of biceps tendinosis.
--- NOTE | 2023-08-29 20:44 | XR_ITS ---
PROCEDURE INFORMATION: Exam: XR Right Humerus Exam date and time: 08/29/2023 8:44 PM Age: 63 years old Clinical indication: Pain; Upper arm; Right; Additional info: Right shoulder pain TECHNIQUE: Imaging protocol: Radiologic exam of the right humerus. Views: 2 or more views. COMPARISON: CR XR SHOULDER RT MIN 2V 08/29/2023 8:43 PM FINDINGS: Bones/joints: No acute fracture or malalignment. Soft tissues: Unremarkable. IMPRESSION: No acute findings.
[2023-08-29 22:49] VITALS: BP 160/79; PULSE 70; RESP 18; TEMP 36.7; O2SAT 99
--- NOTE | 2023-08-30 01:23 | ED_ITS ---
Discharge Plan Disposition Patient Disposition: Home, Self-Care Condition: Fair Prescriptions Prescriptions: New diclofenac sodium [Voltaren Arthritis Pain] 1 % gel 4 g topical QID Qty: 50 0RF Rx Instructions: apply to single knee, ankle, foot; for foot includes sole/toes/top of foot No Action bupropion HCl 150 mg tablet sustained-release 12 hr 150 mg PO BID tizanidine 4 mg tablet 4 mg PO BID amlodipine 5 mg tablet 5 mg PO DAILY aspirin 81 mg tablet,chewable 81 mg PO DAILY gabapentin 100 mg capsule 100 mg PO TID lisinopril 2.5 mg tablet 2.5 mg PO DAILY spironolactone 50 mg tablet 50 mg PO DAILY insulin glargine [Lantus Solostar U-100 Insulin] 100 unit/mL (3 mL) insulin pen 15 unit SQ DAILY Rx Instructions: units per MD daily atorvastatin 40 mg tablet 40 mg PO HS methocarbamol 500 mg tablet 500 mg PO TID famotidine 20 mg tablet 20 mg PO BID meclizine 25 mg tablet 25 mg PO TID insulin lispro [Humalog KwikPen Insulin] 100 unit/mL insulin pen 20 unit SQ ACHS hydrocodone-acetaminophen 5-325 mg tablet 1 tab PO TIDP PRN (Reason: Pain) allopurinol 100 mg tablet 100 mg PO DAILY polyethylene glycol 3350 17 gram/dose powder 17 g PO DAILY topiramate 100 mg tablet 100 mg PO BID cholecalciferol (vitamin D3) 10 mcg (400 unit) tablet 400 mcg PO DAILY Premarin 0.3 mg tablet 0.3 mg PO DAILY levofloxacin 500 mg tablet 500 mg PO DAILY Qty: 5 0RF Referrals Follow up/Referrals: Lupillo Garcia MD [Primary Care Provider] - See instructions Chuck Felipe DO [Staff Physician] - See instructions Activity Restrictions/Add. Instructions Additional Instructions/Restrictions: Follow up with orthopedics. Clinical Impressions Clinical Impression: Acute shoulder pain Instructions Patient Instructions: DI for Chronic Pain -- Adult Discharge ED Provider: Sena Glover General Adult HPI General Chief complaint: Extremity Injury, Upper Stated complaint: right arm pain, no accident Time Seen by Provider: 08/29/23 20:30 Mode of Arrival: Ambulatory Source of Information: Patient Limitations: No Limitations Description of Symptoms (Recalled from ER Triage Doc. by RN): Patient reports right arm pain that she awoke with approximately 1 week previously that has progressively gotten worse. Patient rates pain 10/10 at this time and worse with movement. Patient denies trauma or injury. Patient states that pain radiates into neck. History of Present Illness HPI narrative: 63-year-old female with previous medical history of chronic neck pain and arthritis presents with right shoulder pain. Patient has no known injuries. She states she awoke 1 week ago with right shoulder pain that has progressively gotten worse. It radiates to the right trapezius muscle and down the right humerus. No weakness, numbness, tingling. No skin changes. Related Data Home Medications Medication Instructions Recorded Confirmed amlodipine 5 mg tablet 5 mg PO DAILY 03/31/22 05/06/23 aspirin 81 mg chewable tablet 81 mg PO DAILY 03/31/22 05/06/23 bupropion HCl 150 mg tablet,12 hr 150 mg PO BID Depression 03/31/22 05/06/23 sustained-release gabapentin 100 mg capsule 100 mg PO TID neuropathy 03/31/22 05/06/23 insulin glargine 100 unit/mL (3 15 unit SQ DAILY Diabetes 03/31/22 05/06/23 mL) subcutaneous pen (Lantus Solostar U-100 Insulin) lisinopril 2.5 mg tablet 2.5 mg PO DAILY High blood pressure 03/31/22 05/06/23 spironolactone 50 mg tablet 50 mg PO DAILY High blood pressure 03/31/22 05/06/23 tizanidine 4 mg tablet 4 mg PO BID neuropathy 03/31/22 05/06/23 atorvastatin 40 mg tablet 40 mg PO HS 05/06/23 05/06/23 famotidine 20 mg tablet 20 mg PO BID 05/06/23 05/07/23 insulin lispro 100 unit/mL 20 unit SQ ACHS 05/06/23 05/06/23 subcutaneous pen (Humalog KwikPen (U-100) Insulin) meclizine 25 mg tablet 25 mg PO TID 05/06/23 05/06/23 methocarbamol 500 mg tablet 500 mg PO TID 05/06/23 05/06/23 allopurinol 100 mg tablet 100 mg PO DAILY 05/07/23 05/07/23 cholecalciferol (vitamin D3) 10 400 mcg PO DAILY 05/07/23 05/07/23 mcg (400 unit) tablet conjugated estrogens 0.3 mg tablet 0.3 mg PO DAILY 05/07/23 05/07/23 (Premarin) hydrocodone 5 mg-acetaminophen 325 1 tab PO TIDP PRN Pain 05/07/23 05/07/23 mg tablet polyethylene glycol 3350 17 17 g PO DAILY 05/07/23 05/07/23 gram/dose oral powder topiramate 100 mg tablet 100 mg PO BID 05/07/23 05/07/23 Previous Rx's Medication Instructions Recorded levofloxacin 500 mg tablet 500 mg PO DAILY #5 tabs 05/09/23 diclofenac sodium 1 % topical gel 4 g topical QID #50 grams 08/29/23 (Voltaren Arthritis Pain) Allergies Allergy/AdvReac Type Severity Reaction Status Date / Time acetaminophen [From Tylenol] Allergy Verified 07/31/22 13:37 amoxicillin Allergy Verified 07/31/22 13:37 butorphanol [From Stadol] Allergy Verified 07/31/22 13:37 clavulanic acid Allergy Verified 07/31/22 13:37 fexofenadine Allergy Verified 07/31/22 13:37 ibuprofen Allergy Verified 07/31/22 13:37 ketorolac Allergy Verified 07/31/22 13:37 metoclopramide Allergy Verified 07/31/22 13:37 nizatidine Allergy Verified 07/31/22 13:37 ondansetron [From Zofran] Allergy Verified 07/31/22 13:37 prochlorperazine Allergy Verified 07/31/22 13:37 propoxyphene Allergy Verified 07/31/22 13:37 PFSH PFS Disclaimer: The information contained in this section may have been updated after the patient was seen, as this information can be updated by other users. 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 Acute sore throat VIOLA (acute kidney injury) Anxiety Asthma CAD (coronary artery disease) Cervical disc disease Depression Diabetes Diabetes mellitus, type 2 Exposure to COVID-19 virus Fall Headache HLD (hyperlipidemia) Hypertension Laceration Lumbar radiculopathy Migraine Prepatellar bursitis, left knee Upper respiratory infection, viral URI (upper respiratory infection) Urinary tract infection Vertigo Viral upper respiratory infection Surgical History History of section History of cholecystectomy History of tonsillectomy History of tubal ligation Family History Other Cancer Heart failure Hypertension Social History Smoking Status: Never smoker alcohol intake: never current occupational status: other Travel in the last 8 weeks: None ROS Obtained: Yes All systems reviewed & no additional complaints except as documented Physical Exam General General appearance: alert and in no apparent distress Head Head exam: atraumatic, normocephalic and normal inspection Eye Eye exam: Present normal appearance, PERRL and EOMI ENT ENT exam: Present normal exam, normal oropharynx, mucous membranes moist, TM's normal bilaterally and normal external ear exam Neck Neck exam: Present normal inspection, full ROM and trachea midline; Absent meningismus or lymphadenopathy Chest Chest inspection: Present normal inspection and symmetric chest wall rise; Absent tenderness Respiratory Respiratory exam: Present normal lung sounds bilaterally; Absent respiratory distress Cardiovascular Cardiovascular exam: Present regular rate and normal rhythm; Absent JVD Abdominal Exam Abdominal exam: Present soft and normal bowel sounds; Absent distention, tenderness or guarding Extremities Exam Extremities exam: Present normal inspection, full ROM, tenderness (Tenderness to palpation over the right trapezius muscle, right shoulder joint, proximal humerus. Normal range of motion.) and normal capillary refill; Absent calf tenderness Back Exam Back exam: Present normal inspection; Absent tenderness Neurological Exam Neurological exam: Present alert and oriented X3 Psychiatric Psychiatric exam: Present normal affect and normal mood Skin Skin exam: Present warm, dry, intact and normal color Lymphatic Lymphatic Findings: no adenopathy Medical Decision Making Mirza Inquiry Pt receiving controlled substance: No Vital Signs: 08/29/23 20:01 08/29/23 22:49 Temperature 98.2 F 98.1 F Temperature Source Oral Oral Pulse Rate 70 Pulse Rate [Left Radial] 91 H Respiratory Rate 18 18 Blood Pressure 160/79 H Blood Pressure [Right Arm] 139/110 H Blood Pressure Mean [Right Arm] 119 Blood Pressure Source Automatic Cuff Blood Pressure Source [Right Arm] Automatic Cuff Blood Pressure Position Sitting Blood Pressure Position [Right Arm] Sitting 02 Sat by Pulse Oximetry 99 Oxygen Delivery Method Room Air Room Air Orders (Tests/Meds): ORDERS Category Date Time Status Humerus XR right [XR humerus RT] Stat Exams 08/29/23 20:44 Completed Shoulder XR right miminum 2 views [XR shoulder RT min Exams 08/29/23 20:44 Completed 2V] Stat Medical Decision Narrative: Considered multiple causes of patient's presentation including fracture, dislocation, tendinopathy, low suspicion for infectious or inflammatory arthritis. For this reason obtained x-ray which I independently reviewed and interpreted and showed no fracture or dislocation. Likely biceps tendinosis. Discussed with patient that she likely has a soft tissue injury along with mus marisol spasm pain but no fractures so she is appropriate for outpatient management with referral to orthopedics. She understands and agrees to instructions and will monitor symptoms at home return if worsening. Critical Care Critical Care Time Critical Care Time: No
== END 2023-08-29 22:50 | disposition home or self-care (01) ==
PROVIDERS: Emergency Provider Emergency Medicine; PCP Family Medicine
DX: M25.511 Pain in right shoulder (principal); M54.2 Cervicalgia; J45.909 Unspecified asthma, uncomplicated; I25.10 Atherosclerotic heart disease of native coronary artery without angina pectoris; E11.9 Type 2 diabetes mellitus without complications; E78.5 Hyperlipidemia, unspecified; I10 Essential (primary) hypertension
CPT/HCPCS: 73030; 73060; 99283

== ENCOUNTER 2023-09-26 15:37 | Outpatient (CLI) | payer MEDICAID, SELFPAY ==
--- NOTE | 2023-09-26 16:05 | ECG_ITS ---
APPROVED REPORT Exam: Resting ECG HR:65 bpm ECG Measurements Heart Rate 65 AXES VA 152 P 55 QRSd 81 QRS 27 QT 390 T 17 QTc 401 Conclusion SINUS RHYTHM NONSPECIFIC T-WAVE ABNORMALITY with no changes from 2022 tracing Essentially normal ECG UNCONFIRMED REPORT Electronically signed by : Jose Delarosa MD 09/27/2023 08:36:33
[2023-09-26 16:25] LABS: Basophils # 0.1 K/mm3 (0-0.2); Basophils % 1.2 % (0.1-2.0); Eosinophils # 0.1 K/mm3 (0.0-0.4); Eosinophils % 1.8 % (0.1-12.0); Lymphocytes # 2.4 K/mm3 (0.7-4.5); Lymphocytes % 32.8 % (10-50); Mean Corpuscular HGB Conc 32.5 g/dL (31.8-35.4); Mean Corpuscular Hemoglobin 32.9 pg (27.0-31.2); Mean Corpuscular Volume 101.2 fl (81-99); Mean Platelet Volume 8.3 fl (7.4-10.4); Monocytes # 0.3 K/mm3 (0.1-1.0); Monocytes % 4.4 % (1.7-9.3); Neutrophils # 4.3 K/mm3 (1.8-7.8); Neutrophils % 59.8 % (37.0-80.0); Platelet Count 212 K/mm3 (142-424); Red Blood Count 4.25 M/mm3 (4.20-5.40); Red Cell Distribution Width 13.7 % (11.5-17.5); White Blood Count 7.2 K/mm3 (4.8-10.8)
[2023-09-26 16:48] LABS: Chloride 109 mmol/L (98-107); Sodium 142 mmol/L (136-145)
[2023-09-26 16:49] LABS: Potassium 4.1 mmoL/L (3.5-5.1)
[2023-09-26 16:51] LABS: Alanine Aminotransferase 24 U/L (12-78); Albumin Level 4.6 g/dl (3.5-5.0); Alkaline Phosphatase 82 U/L (38-126); Aspartate Amino Transferase 32 U/L (14-36); Bilirubin,Total 0.5 mg/dl (0.2-1.3); Blood Urea Nitrogen 21 mg/dl (7-17); Estimated Glomerular Filt Rate 56 ml/min (>60); GFR (African American) 68 ML/MIN (>60)
[2023-09-26 16:52] LABS: Albumin/Globulin Ratio 1.5 (1.1-1.8); Anion Gap 19.1 mEq/L (5-15); Calcium 9.5 mg/dl (8.4-10.2); Carbon Dioxide 18 mmol/L (22.0-30.0); Globulin 3.1 g/dL (1.3-3.2); Glucose 138 mg/dl (74-100); Hemoglobin A1C 7.8 % (4.0-6.0); Total Protein,Serum 7.7 g/dl (6.3-8.2)
== END 2023-09-26 23:59 ==
PROVIDERS: PCP Family Medicine; Visit Provider Family Medicine
DX: Z01.818 Encounter for other preprocedural examination (principal); M79.671 Pain in right foot; E11.40 Type 2 diabetes mellitus with diabetic neuropathy, unspecified; Z79.4 Long term (current) use of insulin
CPT/HCPCS: 36415; 80053; 83036; 85025; 93005

== ENCOUNTER 2023-10-22 15:33 | Outpatient (CLI) | payer MEDICAID, SELFPAY ==
[2023-10-22 15:38] LABS: Microscopic, Urine URINE MICROSCOPIC (MICROSCOPIC)
[2023-10-22 16:14] LABS: Appearance,Urine CLEAR (Clear); Bilirubin,Urine Negative (Negative); Blood, Urine Negative (Negative); Color,Urine YELLOW (Yellow); Glucose,Urine (UA) Negative (Negative); Ketones,Urine Negative (Negative); Leukocyte Esterase,Urine Negative (Negative); Nitrate,Urine Negative (Negative); PH,Urine 6.5 (5.0-8.5); Protein,Urine Negative (Negative); Specific Gravity, Urine 1.015 (1.005-1.030); Urobilinogen,Urine 0.2 EU/dl (0.2)
[2023-10-22 16:26] LABS: Hematocrit 41.4 % (37.0-47.0); Hemoglobin 13.6 g/dL (12.2-16.2); Mean Corpuscular HGB Conc 32.9 g/dL (31.8-35.4); Mean Corpuscular Hemoglobin 32.4 pg (27.0-31.2); Mean Corpuscular Volume 98.4 fl (81-99); Platelet Count 217 K/mm3 (142-424); Red Blood Count 4.21 M/mm3 (4.20-5.40); Red Cell Distribution Width 13.9 % (11.5-17.5); White Blood Count 6.2 K/mm3 (4.8-10.8)
[2023-10-22 16:39] LABS: Creatinine,Urine Random 32 mg/dL (Not Estab.)
[2023-10-22 16:50] LABS: Alanine Aminotransferase 23 U/L (12-78); Albumin Level 4.8 g/dl (3.5-5.0); Albumin/Globulin Ratio 1.6 (1.1-1.8); Alkaline Phosphatase 63 U/L (38-126); Anion Gap 16.8 mEq/L (5-15); Aspartate Amino Transferase 32 U/L (14-36); Bilirubin,Total 0.7 mg/dl (0.2-1.3); Blood Urea Nitrogen 20 mg/dl (7-17); Calcium 9.9 mg/dl (8.4-10.2); Carbon Dioxide 21 mmol/L (22.0-30.0); Chloride 109 mmol/L (98-107); Estimated Glomerular Filt Rate 50 ml/min (>60); GFR (African American) 61 ML/MIN (>60); Glucose 171 mg/dl (74-100); Potassium 3.8 mmoL/L (3.5-5.1); Sodium 143 mmol/L (136-145); Total Protein,Serum 7.8 g/dl (6.3-8.2)
[2023-10-22 17:07] LABS: 25-OH Vitamin D, Total 47.7 ng/mL (30-100)
[2023-10-22 17:45] LABS: Bacteria,Urine Trace /lpf; Hemoglobin A1C 7.6 % (4.0-6.0)
== END 2023-10-22 23:59 | disposition home or self-care (01) ==
LOC: LAB 15:34
PROVIDERS: Visit Provider Internal Medicine Nephrology
DX: I12.9 Hypertensive chronic kidney disease with stage 1 through stage 4 chronic kidney disease, or unspecified chronic kidney disease (principal); N18.2 Chronic kidney disease, stage 2 (mild); E11.21 Type 2 diabetes mellitus with diabetic nephropathy; E55.9 Vitamin D deficiency, unspecified; E79.0 Hyperuricemia without signs of inflammatory arthritis and tophaceous disease; Z68.23 Body mass index [BMI] 23.0-23.9, adult; Z79.4 Long term (current) use of insulin
CPT/HCPCS: 36415; 80053; 81001; 82306; 82570; 83036; 84156; 84550; 85014; 85018; 85048; 85049

== ENCOUNTER 2023-11-19 19:39 | Emergency (ER) | payer MEDICAID, SELFPAY ==
[2023-11-19 19:40] VITALS: BP 185/92; PULSE 89; RESP 18; TEMP 36.7; O2SAT 97; BMI 23.4
[2023-11-19 20:00] VITALS: BP 154/80; PULSE 73; RESP 18; O2SAT 97
--- NOTE | 2023-11-19 20:05 | ED_ITS ---
Discharge Plan Disposition Patient Disposition: Home, Self-Care Condition: Good Prescriptions Prescriptions: No Action bupropion HCl 150 mg tablet sustained-release 12 hr 150 mg PO BID tizanidine 4 mg tablet 4 mg PO BID amlodipine 5 mg tablet 5 mg PO DAILY aspirin 81 mg tablet,chewable 81 mg PO DAILY gabapentin 100 mg capsule 100 mg PO TID lisinopril 2.5 mg tablet 2.5 mg PO DAILY spironolactone 50 mg tablet 50 mg PO DAILY insulin glargine [Lantus Solostar U-100 Insulin] 100 unit/mL (3 mL) insulin pen 15 unit SQ DAILY Rx Instructions: units per MD daily diclofenac sodium [Voltaren Arthritis Pain] 1 % gel 4 g topical QID Qty: 50 0RF Rx Instructions: apply to single knee, ankle, foot; for foot includes sole/toes/top of foot promethazine 25 mg tablet 25 mg PO HS atorvastatin 40 mg tablet 40 mg PO HS methocarbamol 500 mg tablet 500 mg PO TID famotidine 20 mg tablet 20 mg PO BID meclizine 25 mg tablet 25 mg PO TID insulin lispro [Humalog KwikPen Insulin] 100 unit/mL insulin pen 20 unit SQ ACHS hydrocodone-acetaminophen 5-325 mg tablet 1 tab PO TIDP PRN (Reason: Pain) allopurinol 100 mg tablet 100 mg PO DAILY polyethylene glycol 3350 17 gram/dose powder 17 g PO DAILY topiramate 100 mg tablet 200 mg PO HS cholecalciferol (vitamin D3) 10 mcg (400 unit) tablet 400 mcg PO DAILY Premarin 0.3 mg tablet 0.3 mg PO DAILY levofloxacin 500 mg tablet 500 mg PO DAILY Qty: 5 0RF Referrals Follow up/Referrals: Lupillo Garcia MD [Primary Care Provider] - See instructions Activity Restrictions/Add. Instructions Additional Instructions/Restrictions: You were evaluated in the emergency department today. Please follow-up closely with your primary care provider. Return to the emergency department for new or worsening symptoms. Clinical Impressions Clinical Impression: Migraine Qualifiers: Migraine type: unspecified Status migrainosus presence: without status migrainosus Intractability: not intractable Qualified Code(s): G43.909 - Migraine, unspecified, not intractable, without status migrainosus Instructions Patient Instructions: DI for Migraine Discharge ED Provider: Tamie Amado General Adult HPI General Chief complaint: Headache Stated complaint: migraine Time Seen by Provider: 11/19/23 19:46 Mode of Arrival: Ambulatory Source of Information: Patient Limitations: No Limitations Description of Symptoms (Recalled from ER Triage Doc. by RN): Pt presented to the ED for a migraine; she has a hx of migraines and this one started 3 days ago. She rates the pain 10/10 and also c/o light sensitivity and shakiness. Pt takes Topamax 200mg and Phenergan 25mg daily HS for migraines and has not had tonight's dose yet but did take both medications the previous 2 nights. History of Present Illness HPI narrative: This patient is a 63-year-old female with a history of hypertension and migraines presenting to the emergency department for evaluation with concern for headache. It has been bothering her for approximately 3 days. She states this is same as her usual migraines. This consists of pain all the way from her back of her head to her forehead. She denies any new associated neurologic features or symptoms. She tried taking her Topamax and Phenergan at home but it did not help. She states that she needs morphine shot and Phenergan, as is the only thing that helps with her migraines. She notes she is allergic to all other medications to treat migraines, such as Toradol, Compazine, etc. Related Data Home Medications Medication Instructions Recorded Confirmed amlodipine 5 mg tablet 5 mg PO DAILY 03/31/22 10/15/23 aspirin 81 mg chewable tablet 81 mg PO DAILY 03/31/22 10/15/23 bupropion HCl 150 mg tablet,12 hr 150 mg PO BID Depression 03/31/22 10/15/23 sustained-release gabapentin 100 mg capsule 100 mg PO TID neuropathy 03/31/22 10/15/23 insulin glargine 100 unit/mL (3 15 unit SQ DAILY Diabetes 03/31/22 10/15/23 mL) subcutaneous pen (Lantus Solostar U-100 Insulin) lisinopril 2.5 mg tablet 2.5 mg PO DAILY High blood pressure 03/31/22 10/15/23 spironolactone 50 mg tablet 50 mg PO DAILY High blood pressure 03/31/22 10/15/23 tizanidine 4 mg tablet 4 mg PO BID neuropathy 03/31/22 10/15/23 atorvastatin 40 mg tablet 40 mg PO HS 05/06/23 10/15/23 famotidine 20 mg tablet 20 mg PO BID 05/06/23 10/15/23 insulin lispro 100 unit/mL 20 unit SQ ACHS 05/06/23 10/15/23 subcutaneous pen (Humalog KwikPen (U-100) Insulin) meclizine 25 mg tablet 25 mg PO TID 05/06/23 10/15/23 methocarbamol 500 mg tablet 500 mg PO TID 05/06/23 10/15/23 allopurinol 100 mg tablet 100 mg PO DAILY 05/07/23 10/15/23 cholecalciferol (vitamin D3) 10 400 mcg PO DAILY 05/07/23 10/15/23 mcg (400 unit) tablet conjugated estrogens 0.3 mg tablet 0.3 mg PO DAILY 05/07/23 10/15/23 (Premarin) hydrocodone 5 mg-acetaminophen 325 1 tab PO TIDP PRN Pain 05/07/23 10/15/23 mg tablet polyethylene glycol 3350 17 17 g PO DAILY 05/07/23 10/15/23 gram/dose oral powder topiramate 100 mg tablet 200 mg PO HS migraine 05/07/23 11/19/23 promethazine 25 mg tablet 25 mg PO HS migraine 11/19/23 11/19/23 Previous Rx's Medication Instructions Recorded levofloxacin 500 mg tablet 500 mg PO DAILY #5 tabs 05/09/23 diclofenac sodium 1 % topical gel 4 g topical QID #50 grams 08/29/23 (Voltaren Arthritis Pain) Allergies Allergy/AdvReac Type Severity Reaction Status Date / Time acetaminophen [From Tylenol] Allergy Verified 09/11/23 11:01 amoxicillin Allergy Verified 09/11/23 11:01 butorphanol [From Stadol] Allergy Verified 09/11/23 11:01 clavulanic acid Allergy Verified 09/11/23 11:01 fexofenadine Allergy Verified 09/11/23 11:01 ibuprofen Allergy Verified 09/11/23 11:01 ketorolac Allergy Verified 09/11/23 11:01 metoclopramide Allergy Verified 09/11/23 11:01 nizatidine Allergy Verified 09/11/23 11:01 ondansetron [From Zofran] Allergy Verified 09/11/23 11:01 prochlorperazine Allergy Verified 09/11/23 11:01 propoxyphene Allergy Verified 09/11/23 11:01 [facility] Disclaimer: The information contained in this section may have been updated after the patient was seen, as this information can be updated by other users. 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 CAD (coronary artery disease) HLD (hyperlipidemia) VIOLA (acute kidney injury) Fall Vertigo Headache Acute sore throat Upper respiratory infection, viral URI (upper respiratory infection) Depression Anxiety Migraine Diabetes mellitus, type 2 Asthma Hypertension Lumbar radiculopathy Cervical disc disease Exposure to COVID-19 virus Viral upper respiratory infection Laceration Diabetes Prepatellar bursitis, left knee Urinary tract infection Surgical History History of tubal ligation History of tonsillectomy History of section History of cholecystectomy Family History Other Cancer Heart failure Hypertension Social History Smoking Status: Never smoker alcohol intake: never current occupational status: other Travel in the last 8 weeks: None ROS Obtained: Yes All systems reviewed & no additional complaints except as documented Physical Exam General General appearance: alert and in no apparent distress Head Head exam: atraumatic and normocephalic Eye Eye exam: Present normal appearance, PERRL and EOMI ENT ENT exam: Present normal exam, normal oropharynx, mucous membranes moist and normal external ear exam Neck Neck exam: Present normal inspection, full ROM and trachea midline; Absent tenderness Chest Chest inspection: Present normal inspection and symmetric chest wall rise; Absent tenderness Respiratory Respiratory exam: Present normal lung sounds bilaterally; Absent respiratory distress, wheezes, stridor or accessory muscle use Cardiovascular Cardiovascular exam: Present regular rate and normal rhythm Abdominal Exam Abdominal exam: Present soft; Absent distention, tenderness or guarding Extremities Exam Extremities exam: Present normal inspection, full ROM and normal capillary refill; Absent tenderness or edema Back Exam Back exam: Present normal inspection and full ROM; Absent tenderness Neurological Exam Neurological exam: Present alert, oriented X3, CN II-XII intact and normal gait; Absent motor sensory deficit Psychiatric Psychiatric exam: Present normal affect and normal mood Skin Skin exam: Present warm and dry Medical Decision Making Medical Records Medical records reviewed: Yes I reviewed the patient's medical records. Mirza Inquiry Pt receiving controlled substance: No Vital Signs: 11/19/23 19:40 11/19/23 20:00 11/19/23 20:30 Temperature 98.1 F Temperature Source Oral Pulse Rate 73 66 Pulse Rate [Right Brachial] 89 Respiratory Rate 18 18 16 Blood Pressure 154/80 H 145/69 H Blood Pressure [Right Arm] 185/92 H Blood Pressure Mean [Right Arm] 123 02 Sat by Pulse Oximetry 97 97 98 Oxygen Delivery Method Room Air Room Air Room Air 11/19/23 20:31 Temperature Temperature Source Pulse Rate 82 Pulse Rate [Right Brachial] Respiratory Rate 18 Blood Pressure 145/69 H Blood Pressure [Right Arm] Blood Pressure Mean [Right Arm] 02 Sat by Pulse Oximetry 99 Oxygen Delivery Method Room Air Lab Data Lab results reviewed: Yes I reviewed the patient's lab results. Orders (Tests/Meds): ED MEDICATIONS Discontinued Medications Generic Name Dose Route Start Last Admin Trade Name Freq PRN Reason Stop Dose Admin Promethazine HCl 12.5 mg 11/19/23 20:00 11/19/23 20:20 Promethazine Hcl 25mg/Ml 1ml Vial IM 11/19/23 20:01 12.5 mg ONCE ONE Administration Medical Decision Narrative: In summary, this patient is a 63-year-old female presenting to the Emergency Department for evaluation of headache. Differential diagnoses considered include but are not limited to migraine, tension headache, rebound headache. Ruling out the most morbid conditions drove assessment. It should be noted patient's history includes migraines and hypertension which are not at goal therapy. This complicates all aspects of care by increasing pat ient's risk for morbidity. I reviewed patient's past medical records and noted his evaluations for multiple different complaints in the past, such as migraine, neck pain, and cervical radiculopathy. On exam, the patient is alert and neurologically intact. She is mildly hypertensive but otherwise vitals are reassuring. At this time, I considered obtaining head imaging to evaluate for acute intracranial pathology, however this is the same as patient's prior migraines with no new features. 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 At this time, offered patient medications to treat her migraine, however she states she is allergic to everything and needs a morphine shot. I advised her that morphine is not indicated to treat migraines. I did give her Phenergan, as she states that this also usually helps. She states her allergy to Toradol, Tylenol, Reglan, and Compazine consists of blisters in her mouth and shaking. Given this, she refuses other interventions. On reassessment, patient remains neurologically intact and blood pressure is improved from 180 systolic to 140 systolic. She is feeling a bit better. Given that this is the same as her prior migraines and exam is reassuring, I feel that she is appropriate for discharge home with close follow-up with primary care. Strict return precautions were given. Critical Care Critical Care Time Critical Care Time: No
[2023-11-19] MEDS: PROMETHAZINE HCL 25MG/ML 1ML VIAL 12.5 MG IM (20:20)
[2023-11-19 20:30] VITALS: BP 145/69; PULSE 66; RESP 16; O2SAT 98
[2023-11-19 20:31] VITALS: BP 145/69; PULSE 82; RESP 18; O2SAT 99
[2023-11-19 21:15] VITALS: BP 140/69; PULSE 74; RESP 18; TEMP 36.6; O2SAT 95
== END 2023-11-19 21:20 | disposition home or self-care (01) ==
PROVIDERS: Emergency Provider Emergency Medicine; PCP Family Medicine
DX: G43.909 Migraine, unspecified, not intractable, without status migrainosus (principal); I10 Essential (primary) hypertension
CPT/HCPCS: 96372; 99283

== ENCOUNTER 2023-12-26 14:26 | Outpatient (CLI) | payer MEDICAID, SELFPAY ==
--- NOTE | 2023-12-26 14:45 | ECG_ITS ---
APPROVED REPORT Exam: Resting ECG HR:68 bpm ECG Measurements Heart Rate 68 AXES AL 154 P 54 QRSd 83 QRS 6 QT 316 T 22 QTc 333 Conclusion SINUS RHYTHM NONSPECIFIC T-WAVE ABNORMALITY BORDERLINE ECG UNCONFIRMED REPORT Electronically signed by : Jose Delarosa MD 12/29/2023 17:19:11
[2023-12-26 15:14] LABS: Basophils # 0.1 K/mm3 (0-0.2); Basophils % 1.2 % (0.1-2.0); Eosinophils # 0.1 K/mm3 (0.0-0.4); Eosinophils % 1.2 % (0.1-12.0); Hematocrit 39.1 % (37.0-47.0); Hemoglobin 12.5 g/dL (12.2-16.2); Lymphocytes # 2.2 K/mm3 (0.7-4.5); Lymphocytes % 31.1 % (10-50); Mean Corpuscular HGB Conc 31.8 g/dL (31.8-35.4); Mean Corpuscular Volume 100.7 fl (81-99); Monocytes # 0.2 K/mm3 (0.1-1.0); Monocytes % 3.1 % (1.7-9.3); Neutrophils # 4.4 K/mm3 (1.8-7.8); Neutrophils % 63.3 % (37.0-80.0); Platelet Count 252 K/mm3 (142-424); Red Blood Count 3.89 M/mm3 (4.20-5.40); Red Cell Distribution Width 14.1 % (11.5-17.5); White Blood Count 6.9 K/mm3 (4.8-10.8)
[2023-12-26 15:48] LABS: Chloride 106 mmol/L (98-107); Sodium 139 mmol/L (136-145)
[2023-12-26 15:49] LABS: Potassium 3.8 mmoL/L (3.5-5.1)
[2023-12-26 15:51] LABS: Alanine Aminotransferase 18 U/L (12-78); Albumin Level 4.5 g/dl (3.5-5.0); Albumin/Globulin Ratio 1.5 (1.1-1.8); Alkaline Phosphatase 62 U/L (38-126); Anion Gap 17.8 mEq/L (5-15); Aspartate Amino Transferase 26 U/L (14-36); Bilirubin,Total 0.5 mg/dl (0.2-1.3); Blood Urea Nitrogen 26 mg/dl (7-17); Carbon Dioxide 19 mmol/L (22.0-30.0); Estimated Glomerular Filt Rate 35 ml/min (>60); GFR (African American) 42 ML/MIN (>60); Globulin 3.1 g/dL (1.3-3.2); Total Protein,Serum 7.6 g/dl (6.3-8.2)
[2023-12-26 15:52] LABS: Calcium 9.4 mg/dl (8.4-10.2); Glucose 195 mg/dl (74-100)
== END 2023-12-26 23:59 | disposition home or self-care (01) ==
LOC: LAB 14:29
PROVIDERS: PCP Family Medicine; Visit Provider Family Medicine
DX: E11.40 Type 2 diabetes mellitus with diabetic neuropathy, unspecified (principal); I10 Essential (primary) hypertension; Z01.818 Encounter for other preprocedural examination
CPT/HCPCS: 36415; 80053; 83036; 85025; 93005

== ENCOUNTER 2024-01-31 09:03 | Emergency (ER) | payer MEDICAID, SELFPAY ==
[2024-01-31 09:05] VITALS: BP 119/97; PULSE 86; RESP 18; TEMP 36.7; O2SAT 99; BMI 23.4
[2024-01-31 09:14] VITALS: BP 119/97; PULSE 85; O2SAT 99
[2024-01-31 09:24] VITALS: BP 119/97; PULSE 73; O2SAT 98
--- NOTE | 2024-01-31 09:26 | PC.NURSE ---
DR SHANE AT BEDSIDE
--- NOTE | 2024-01-31 09:26 | PC.NURSE ---
Dr. Downs at bedside
[2024-01-31 09:39] LABS: Microscopic, Urine URINE MICROSCOPIC (MICROSCOPIC)
[2024-01-31 09:40] LABS: Basophils # 0.1 K/mm3 (0-0.2); Basophils % 1.1 % (0.1-2.0); Eosinophils # 0.1 K/mm3 (0.0-0.4); Eosinophils % 1.2 % (0.1-12.0); Hematocrit 42.6 % (37.0-47.0); Hemoglobin 14.4 g/dL (12.2-16.2); Lymphocytes # 2.9 K/mm3 (0.7-4.5); Mean Corpuscular HGB Conc 33.8 g/dL (31.8-35.4); Mean Corpuscular Hemoglobin 32.5 pg (27.0-31.2); Mean Corpuscular Volume 96.1 fl (81-99); Mean Platelet Volume 8.1 fl (7.4-10.4); Monocytes # 0.5 K/mm3 (0.1-1.0); Monocytes % 5.2 % (1.7-9.3); Neutrophils # 5.5 K/mm3 (1.8-7.8); Neutrophils % 60.5 % (37.0-80.0); Platelet Count 318 K/mm3 (142-424); Red Blood Count 4.43 M/mm3 (4.20-5.40); Red Cell Distribution Width 13.8 % (11.5-17.5); White Blood Count 9.1 K/mm3 (4.8-10.8)
[2024-01-31 09:40] LABS: Appearance,Urine CLOUDY (Clear); Bilirubin,Urine Negative (Negative); Blood, Urine TRACE-I (Negative); Color,Urine YELLOW (Yellow); Glucose,Urine (UA) 3+ (Negative); Ketones,Urine Negative (Negative); Leukocyte Esterase,Urine 2+ (Negative); Nitrate,Urine Negative (Negative); PH,Urine 5.5 (5.0-8.5); Protein,Urine Negative (Negative); Specific Gravity, Urine >= 1.030 (1.005-1.030); Urobilinogen,Urine 0.2 EU/dl (0.2)
[2024-01-31 09:41] LABS: Albumin Level 4.6 g/dl (3.5-5.0); Chloride 109 mmol/L (98-107); Sodium 142 mmol/L (136-145)
[2024-01-31 09:42] LABS: Potassium 3.8 mmoL/L (3.5-5.1)
[2024-01-31 09:44] LABS: Alanine Aminotransferase 18 U/L (12-78); Albumin/Globulin Ratio 1.2 (1.1-1.8); Alkaline Phosphatase 85 U/L (38-126); Anion Gap 16.8 mEq/L (5-15); Aspartate Amino Transferase 25 U/L (14-36); Bilirubin,Total 0.5 mg/dl (0.2-1.3); Blood Urea Nitrogen 28 mg/dl (7-17); Carbon Dioxide 20 mmol/L (22.0-30.0); Creatinine Clearance Estimated 35 mL/min (50-200); Estimated Glomerular Filt Rate 38 ml/min (>60); GFR (African American) 46 ML/MIN (>60); Globulin 3.9 g/dL (1.3-3.2); Total Protein,Serum 8.5 g/dl (6.3-8.2)
[2024-01-31 09:45] LABS: Calcium 10.1 mg/dl (8.4-10.2); Glucose 104 mg/dl (74-100)
[2024-01-31] MEDS: LACTATED RINGERS 1000ML 1,000 ML 999 ML IV (09:46)
[2024-01-31] MEDS: FLUCONAZOLE 200MG TABLET 200 MG PO (09:47)
[2024-01-31 09:52] LABS: Bacteria,Urine 3+ /lpf; WBC,Urine 50-100 #/hpf (0-3)
--- NOTE | 2024-01-31 10:01 | ED_ITS ---
Discharge Plan Disposition Patient Disposition: Home, Self-Care Prescriptions Prescriptions: New cefdinir 300 mg capsule 300 mg PO BID 7 Days Qty: 14 0RF fluconazole 150 mg tablet 150 mg PO Q3D Qty: 2 0RF Rx Instructions: may repeat second dose 72 hrs after first dose if symptoms persist No Action bupropion HCl 150 mg tablet sustained-release 12 hr 150 mg PO BID tizanidine 4 mg tablet 4 mg PO BID amlodipine 5 mg tablet 5 mg PO DAILY aspirin 81 mg tablet,chewable 81 mg PO DAILY gabapentin 100 mg capsule 100 mg PO TID lisinopril 2.5 mg tablet 2.5 mg PO DAILY spironolactone 50 mg tablet 50 mg PO DAILY insulin glargine [Lantus Solostar U-100 Insulin] 100 unit/mL (3 mL) insulin pen 15 unit SQ DAILY Rx Instructions: units per MD daily diclofenac sodium [Voltaren Arthritis Pain] 1 % gel 4 g topical QID Qty: 50 0RF Rx Instructions: apply to single knee, ankle, foot; for foot includes sole/toes/top of foot promethazine 25 mg tablet 25 mg PO HS atorvastatin 40 mg tablet 40 mg PO HS methocarbamol 500 mg tablet 500 mg PO TID famotidine 20 mg tablet 20 mg PO BID meclizine 25 mg tablet 25 mg PO TID insulin lispro [Humalog KwikPen Insulin] 100 unit/mL insulin pen 20 unit SQ ACHS hydrocodone-acetaminophen 5-325 mg tablet 1 tab PO TIDP PRN (Reason: Pain) allopurinol 100 mg tablet 100 mg PO DAILY polyethylene glycol 3350 17 gram/dose powder 17 g PO DAILY topiramate 100 mg tablet 200 mg PO HS cholecalciferol (vitamin D3) 10 mcg (400 unit) tablet 400 mcg PO DAILY Premarin 0.3 mg tablet 0.3 mg PO DAILY levofloxacin 500 mg tablet 500 mg PO DAILY Qty: 5 0RF Referrals Follow up/Referrals: Lupillo Garcia MD [Primary Care Provider] - See instructions Activity Restrictions/Add. Instructions Additional Instructions/Restrictions: Call your family doctor to establish care for this visit to the emergency department and schedule follow-up within 48 hours to ensure improvement. If you have any worsening of your condition or any other concerning signs or symptoms, return to the emergency department or your primary care doctor for further evaluation. Antibiotic twice daily for 7 days. Take Diflucan on 02/02 and 02/05 to prevent recurrence of yeast infection. Clinical Impressions Clinical Impression: Vulvovaginal candidiasis, UTI (urinary tract infection) Instructions Patient Instructions: DI for Urinary Tract Infection (UTI), DI for Urinary Tract Infection in Children Print Language Print Language: Maltese Discharge ED Provider: [facility] HPI General Chief complaint: Urogenital-Female Stated complaint: abd pain, poss UTI Time Seen by Provider: 01/31/24 09:05 Mode of Arrival: Ambulatory Source of Information: Patient Limitations: No Limitations Description of Symptoms (Recalled from ER Triage Doc. by RN): vaginal itching and burning History of Present Illness HPI narrative: Please note that above description of symptoms, in this electronic medical record under categorization of recalled from ER triage doctor by RN are reflective of an initial nursing assessment, however, is not reflective of my full history and physical exam that was personally taken and clarified. Consequentially, this preceding description of symptoms, which may include the patient's categorized chief complaint in the EMR, do not reflect my personal clinical impression, and the ultimate description of history of present illness and patient stated complaints should be deferred to this section of the note. Unless stated otherwise or congruent with this section of the note, additional signs, symptoms, or incongruence should be interpreted as inaccurate with my clinical impression. Related Data Home Medications ?Medication ?Instructions ?Recorded ?Confirmed amlodipine 5 mg tablet 5 mg PO DAILY 03/31/22 10/15/23 aspirin 81 mg chewable tablet 81 mg PO DAILY 03/31/22 10/15/23 bupropion HCl 150 mg tablet,12 hr 150 mg PO BID Depression 03/31/22 10/15/23 sustained-release gabapentin 100 mg capsule 100 mg PO TID neuropathy 03/31/22 10/15/23 insulin glargine 100 unit/mL (3 15 unit SQ DAILY Diabetes 03/31/22 10/15/23 mL) subcutaneous pen (Lantus Solostar U-100 Insulin) lisinopril 2.5 mg tablet 2.5 mg PO DAILY High blood pressure 03/31/22 10/15/23 spironolactone 50 mg tablet 50 mg PO DAILY High blood pressure 03/31/22 10/15/23 tizanidine 4 mg tablet 4 mg PO BID neuropathy 03/31/22 10/15/23 atorvastatin 40 mg tablet 40 mg PO HS 10/31/23 04/10/24 famotidine 20 mg tablet 20 mg PO BID 05/06/23 10/15/23 insulin lispro 100 unit/mL 20 unit SQ ACHS 05/06/23 10/15/23 subcutaneous pen (Humalog KwikPen (U-100) Insulin) meclizine 25 mg tablet 25 mg PO TID 05/06/23 10/15/23 methocarbamol 500 mg tablet 500 mg PO TID 05/06/23 10/15/23 allopurinol 100 mg tablet 100 mg PO DAILY 05/07/23 10/15/23 cholecalciferol (vitamin D3) 10 400 mcg PO DAILY 05/07/23 10/15/23 mcg (400 unit) tablet conjugated estrogens 0.3 mg tablet 0.3 mg PO DAILY 05/07/23 10/15/23 (Premarin) hydrocodone 5 mg-acetaminophen 325 1 tab PO TIDP PRN Pain 05/07/23 10/15/23 mg tablet polyethylene glycol 3350 17 17 g PO DAILY 05/07/23 10/15/23 gram/dose oral powder topiramate 100 mg tablet 200 mg PO HS migraine 05/07/23 11/19/23 promethazine 25 mg tablet 25 mg PO HS migraine 11/19/23 11/19/23 Previous Rx's ?Medication ?Instructions ?Recorded levofloxacin 500 mg tablet 500 mg PO DAILY #5 tabs 05/09/23 diclofenac sodium 1 % topical gel 4 g topical QID #50 grams 08/29/23 (Voltaren Arthritis Pain) cefdinir 300 mg capsule 300 mg PO BID 7 days #14 caps 01/31/24 fluconazole 150 mg tablet 150 mg PO Q3D 2 doses #2 tabs 01/31/24 Allergies Allergy/AdvReac Type Severity Reaction Status Date / Time acetaminophen [From Tylenol] Allergy Verified 09/11/23 11:01 amoxicillin Allergy Verified 09/11/23 11:01 butorphanol [From Stadol] Allergy Verified 09/11/23 11:01 clavulanic acid Allergy Verified 09/11/23 11:01 fexofenadine Allergy Verified 09/11/23 11:01 ibuprofen Allergy Verified 09/11/23 11:01 ketorolac Allergy Verified 09/11/23 11:01 metoclopramide Allergy Verified 09/11/23 11:01 nizatidine Allergy Verified 09/11/23 11:01 ondansetron [From Zofran] Allergy Verified 09/11/23 11:01 prochlorperazine Allergy Verified 09/11/23 11:01 propoxyphene Allergy Verified 09/11/23 11:01 [facility] Disclaimer: The information contained in this section may have been updated after the patient was seen, as this information can be updated by other users. 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 CAD (coronary artery disease) HLD (hyperlipidemia) VIOLA (acute kidney injury) Fall Vertigo Headache Acute sore throat Upper respiratory infection, viral URI (upper respiratory infection) Depression Anxiety Migraine Diabetes mellitus, type 2 Asthma Hypertension Lumbar radiculopathy Cervical disc disease Exposure to COVID-19 virus Viral upper respiratory infection Laceration Diabetes Prepatellar bursitis, left knee Urinary tract infection Surgical History History of tubal ligation History of tonsillectomy History of section History of cholecystectomy Family History Other Cancer Heart failure Hypertension Social History Smoking Status: Never smoker alcohol intake: never current occupational status: other Travel in the last 8 weeks: None ROS Obtained: Yes All systems reviewed & no additional complaints except as documented Physical Exam General General appearance: alert Head Head exam: atraumatic and normocephalic Eye Eye exam: Present normal appearance, PERRL and EOMI Neck Neck exam: Present normal inspection, full ROM and trachea midline Respiratory Respiratory exam: Absent respiratory distress, wheezes, stridor, accessory muscle use or prolonged expiratory phase Cardiovascular Cardiovascular exam: Present other (Pulses equal symmetric in upper and lower extremities) Abdominal Exam Abdominal exam: Present soft and tenderness; Absent distention or pulsatile mass Abdominal tenderness: Present suprapubic and mild Extremities Exam Extremities exam: Absent edema Neurological Exam Neurological exam: Present alert, oriented X3 and CN II-XII intact; Absent motor sensory deficit Skin Skin exam: Present warm and dry; Absent diaphoresis or erythema Medical Decision Making Medical Records Medical records reviewed: Yes I reviewed the patient's medical records. Mirza Inquiry Pt receiving controlled substance: No Mirza was queried for this patient: No Vital Signs: 01/31/24 09:05 01/31/24 09:14 01/31/24 09:24 Temperature 98.1 F Temperature Source Oral Pulse Rate 85 73 Pulse Rate [Right] 86 Respiratory Rate 18 Blood Pressure 119/97 H 119/97 H Blood Pressure [Right Arm] 119/97 H Blood Pressure Mean Blood Pressure Mean [Right Arm] 104 02 Sat by Pulse Oximetry 99 99 98 Oxygen Delivery Method Room Air Room Air 01/31/24 10:15 Temperature Temperature Source Pulse Rate 66 Pulse Rate [Right] Respiratory Rate Blood Pressure 118/69 Blood Pressure [Right Arm] Blood Pressure Mean 89 Blood Pressure Mean [Right Arm] 02 Sat by Pulse Oximetry 97 Oxygen Delivery Method Room Air Lab Data Lab Results 01/31/24 09:10: Urine Color Yellow, Urine Appearance Cloudy, Urine pH 5.5, Ur Specific [place] >= 1.030, Urine Protein Negative, Urine Glucose (UA) 3+, Urine Ketones Negative, Urine Blood Trace-i, Urine Nitrate Negative, Urine Bilirubin Negative, Urine Urobilinogen 0.2, Ur Leukocyte Esterase 2+ A, Urine RBC None, Urine WBC 50-100, Ur Squamous Epith Cells 5-10, Urine Bacteria 3+ 01/31/24 09:12: WBC 9.1, RBC 4.43, Hgb 14.4, Hct 42.6, MCV 96.1, MCH 32.5 H, MCHC 33.8, RDW 13.8, Plt Count 318, MPV 8.1, Neut % (Auto) 60.5, Lymph % (Auto) 32.0, [place] % (Auto) 5.2, Eos % (Auto) 1.2, Baso % (Auto) 1.1, Neut # (Auto) 5.5, Lymph # (Auto) 2.9, [place] # (Auto) 0.5, Eos # (Auto) 0.1, Baso # (Auto) 0.1, Sodium 142, Potassium 3.8, Chloride 109 H, Carbon Dioxide 20 L, Anion Gap 16.8 H , BUN 28 H, Creatinine 1.40 H, Estimated Creat Clear 35, Estimated GFR 38 L, Est GFR ( Amer) 46 L, Glucose 104 H, Calcium 10.1, Total Bilirubin 0.5, AST 25, ALT 18, Alkaline Phosphatase 85, Total Protein 8.5 H, Albumin 4.6, Globulin 3.9 H, Albumin/Globulin Ratio 1.2 01/31/24 09:12 01/31/24 09:12 Orders (Tests/Meds): ED MEDICATIONS Discontinued Medications Generic Name Dose Route Start Last Admin Trade Name Irvin PRN Reason Stop Dose Admin Fluconazole 200 mg 01/31/24 09:33 01/31/24 09:47 Fluconazole 200mg Tablet PO 01/31/24 09:34 200 mg ONCE ONE Administration Lactated Ringer's 1,000 mls @ 999 mls/hr 01/31/24 09:33 01/31/24 09:46 Lactated Ringer's 1000 Ml Bag IV 01/31/24 10:33 999 mls/hr .Q1H1M ONE Administration Ceftriaxone Sodium 1 gm/ 50 mls @ 100 mls/hr 01/31/24 10:30 01/31/24 10:29 Sodium Chloride IV 01/31/24 10:59 100 mls/hr ONCE ONE Administration ORDERS Category Date Time Status CBC w/Auto Diff [Complete Blood Count Auto Diff] Stat Lab 01/31/24 09:12 Completed CMP [Comprehensive Metabolic Panel] Stat Lab 01/31/24 09:12 Completed UA [Urinalysis and Microscopic] Stat Lab 01/31/24 09:10 Completed Urine Culture Stat Micro 01/31/24 09:10 Received Medical Decision Narrative: 63-year-old female history of hypertension, hyperlipidemia, diabetes, CKD, recent right foot surgery about 10 days prior presenting with vaginal discharge and burning. Patient states she antibiotics for a few days, has been off of them for 2 to 3 days at this point. She noticed that yesterday, she started having external burning when she urinates as well as vaginal discharge it is yellow/creamy. No objective fevers, patient does state that she has felt chilled. No hematuria, frequency, or urgency. States that her sugars have been under control recently. No flank pain, vomiting, or other concerns. History was obtained via conversation with patient. On arrival, patient hemodynamically stable, alert, oriented x4, appropriate, GCS 15, moving all extremities spontaneously, pupils equal and reactive to light. Full physical exam performed and significant for well-appearing female no acute distress. Abdomen is soft, mildly tender in suprapubic region, no flank tenderness overlying skin changes. Hemodynamic stable, afebrile, very well-appearing overall. Differential includes UTI, vulvovaginal candidiasis, proctitis, diverticulitis, among others. Patient was given Diflucan for symptomatic management and correction of underlying abnormalities given comorbidities as well as history. Workup independently interpreted and significant for UA with concern for UTI. Chemistry with stable kidney function all other stable findings and no acute abnormalities. See radiology read for full review of final results. On reevaluation, patient sleeping comfortably. Upon being woken up, she is agreeable to this outpatient plan with treatment cefdinir and Diflucan in 3 days. Because patient at baseline without signs or symptoms of clinical decompensation, deemed appropriate for discharge. Results were relayed to patient who voiced understanding and were agreeable to outpatient management and follow up. I discussed my clinical impression with patient and answered all questions. At this time, the evidence for any other entities in the differential is insufficient to warrant any further testing or ED observation. This was explained as well. Advisory was given that persistent or worsening symptoms require further evaluation. I confirmed the understanding of this discussion. [employer] disclaimer Much of this encounter note is an electronic medication assistant spoken language to printed text. Electronic medication assistant of the spoken language may permit errors. Although I have reviewed the note, some errors may still exist. Critical Care Critical Care Time Critical Care Time: No
[2024-01-31 10:15] VITALS: BP 118/69; PULSE 66; O2SAT 97
--- NOTE | 2024-01-31 10:28 | PC.NURSE ---
DR SHANE AT BEDSIDE TO UPDATE PT
[2024-01-31] MEDS: CEFTRIAXONE 1 GM 1 GM in 0.9 % SODIUM CHLORIDE 50 ML IV (10:29)
[2024-01-31 11:19] VITALS: BP 118/69; PULSE 66; RESP 18; TEMP 36.7; O2SAT 96
== END 2024-01-31 11:21 | disposition home or self-care (01) ==
PROVIDERS: Emergency Provider Emergency Medicine; PCP Family Medicine
DX: N39.0 Urinary tract infection, site not specified (principal); B37.31 Acute candidiasis of vulva and vagina; E11.9 Type 2 diabetes mellitus without complications; I10 Essential (primary) hypertension; E78.5 Hyperlipidemia, unspecified; Z79.4 Long term (current) use of insulin
CPT/HCPCS: 80053; 81001; 85025; 87086; 96361; 96365; 99284; J0696; J7120

== ENCOUNTER 2024-02-09 12:36 | Emergency (ER) | payer MEDICAID, SELFPAY ==
[2024-02-09] VITALS (7 sets, daily range): BP systolic 135–163; BP diastolic 70–89; PULSE 70–94; RESP 18–20; TEMP 36.6–36.7; O2SAT 99–100; BMI 23.4
--- NOTE | 2024-02-09 13:27 | PC.NURSE ---
dr duarte at bedside
--- NOTE | 2024-02-09 13:28 | CT_ITS ---
FINAL REPORT CLINICAL HISTORY: headache/neck pain COMPARISON: 05/06/2023 FINDINGS: Axial CT images of the cervical spine were obtained without contrast. Sagittal and coronal reformatted images were also obtained. This study was performed with techniques to keep radiation doses as low as reasonably achievable (ALARA). Individualized dose reduction techniques using automated exposure control or adjustment of mA and/or kV according to the patient's size were employed. There is no evidence of fracture or dislocation. The bony alignment is normal. There are multilevel disc osteophyte complexes and neuroforaminal narrowing present. There is mild central canal stenosis present at the C5-6 and C6-7 levels. No paraspinous soft tissue abnormality is seen. The patient has undergone a posterior fusion beginning at the T2 level and extending below the [id number]. IMPRESSION: Multilevel degenerative changes, as described, not significantly changed since the prior CT of April 2023. No acute bony abnormality identified. Reviewed, Interpreted and Dictated by Morteza Curry III, MD Transcribed by Berenice Munoz Authenticated and [facility]
--- NOTE | 2024-02-09 13:28 | CT_ITS ---
FINAL REPORT CLINICAL HISTORY: headache/neck pain COMPARISON: 05/06/2023 FINDINGS: Axial images of the head were obtained without contrast. Coronal and sagittal reformatted images were also obtained.This study was performed with techniques to keep radiation doses as low as reasonably achievable (ALARA). Individualized dose reduction techniques using automated exposure control or adjustment of mA and/or kV according to the patient's size were employed. There is no evidence of intracranial hemorrhage or mass. The ventricular size is within normal limits. There is no evidence of shift of the midline structures. No abnormal extra axial fluid collection is identified. No skull abnormality is seen on the bone window images. IMPRESSION: No acute intracranial abnormality. Reviewed, Interpreted and Dictated by Morteza Curry III, MD Transcribed by Berenice Munoz Authenticated and [facility]
[2024-02-09] MEDS: LIDOCAINE 5% TRANSDERMAL PATCH 1 EACH TP (13:37)
[2024-02-09] MEDS: METHOCARBAMOL 500MG TABLET 500 MG PO (13:37)
--- NOTE | 2024-02-09 13:38 | PC.NURSE ---
pt to ct
--- NOTE | 2024-02-09 14:02 | ED_ITS ---
Discharge Plan Disposition Patient Disposition: Home, Self-Care Condition: Good Prescriptions Prescriptions: No Action bupropion HCl 150 mg tablet sustained-release 12 hr 150 mg PO BID tizanidine 4 mg tablet 4 mg PO BID amlodipine 5 mg tablet 5 mg PO DAILY aspirin 81 mg tablet,chewable 81 mg PO DAILY gabapentin 100 mg capsule 100 mg PO TID lisinopril 2.5 mg tablet 2.5 mg PO DAILY spironolactone 50 mg tablet 50 mg PO DAILY insulin glargine [Lantus Solostar U-100 Insulin] 100 unit/mL (3 mL) insulin pen 15 unit SQ DAILY Rx Instructions: units per MD daily diclofenac sodium [Voltaren Arthritis Pain] 1 % gel 4 g topical QID Qty: 50 0RF Rx Instructions: apply to single knee, ankle, foot; for foot includes sole/toes/top of foot promethazine 25 mg tablet 25 mg PO HS cefdinir 300 mg capsule 300 mg PO BID 7 Days Qty: 14 0RF fluconazole 150 mg tablet 150 mg PO Q3D Qty: 2 0RF Rx Instructions: may repeat second dose 72 hrs after first dose if symptoms persist atorvastatin 40 mg tablet 40 mg PO HS methocarbamol 500 mg tablet 500 mg PO TID famotidine 20 mg tablet 20 mg PO BID meclizine 25 mg tablet 25 mg PO TID insulin lispro [Humalog KwikPen Insulin] 100 unit/mL insulin pen 20 unit SQ ACHS hydrocodone-acetaminophen 5-325 mg tablet 1 tab PO TIDP PRN (Reason: Pain) allopurinol 100 mg tablet 100 mg PO DAILY polyethylene glycol 3350 17 gram/dose powder 17 g PO DAILY topiramate 100 mg tablet 200 mg PO HS cholecalciferol (vitamin D3) 10 mcg (400 unit) tablet 400 mcg PO DAILY Premarin 0.3 mg tablet 0.3 mg PO DAILY levofloxacin 500 mg tablet 500 mg PO DAILY Qty: 5 0RF Referrals Follow up/Referrals: Lupillo Garcia MD [Primary Care Provider] - See instructions Activity Restrictions/Add. Instructions Additional Instructions/Restrictions: You were evaluated in the emergency department today. Please follow-up very closely with your primary care provider for further evaluation and management. Return to the emergency department for new or worsening symptoms Clinical Impressions Clinical Impression: Strain of neck muscle Migraine Qualifiers: Migraine type: unspecified Status migrainosus presence: without status migrainosus Intractability: not intractable Qualified Code(s): G43.909 - Migraine, unspecified, not intractable, without status migrainosus Instructions Patient Instructions: DI for Neck Pain Print Language Print Language: Kinyarwanda Discharge ED Provider: Tamie Amado General Adult HPI General Chief complaint: Neck Pain/Injury Stated complaint: neck pain, headache Time Seen by Provider: 02/09/24 13:26 Mode of Arrival: Ambulatory Source of Information: Patient Limitations: No Limitations Description of Symptoms (Recalled from ER Triage Doc. by RN): pt reports waking up on 02/05 with severe neck pain. pt reports the pain is sharp and 10/10. pt states the pain radiates to the base of her head and bilaterally to her shoulders. pt states she has not taken anything for the pain. pt denies injury. History of Present Illness HPI narrative: This patient is a 63-year-old female with history of migraines and cervical radiculopathy presenting to the emergency department for evaluation with concern for neck pain and headache. Patient states that she is having left-sided neck pain that radiates up into her head. She states it is worse with turning her head. No fevers, visual disturbance, numbness, tingling, or other concerns. She took nothing for the pain at home. On medical record review, she seen both ED and orthopedics for similar complaints in the past. Related Data Home Medications ?Medication ?Instructions ?Recorded ?Confirmed amlodipine 5 mg tablet 5 mg PO DAILY 03/31/22 10/15/23 aspirin 81 mg chewable tablet 81 mg PO DAILY 03/31/22 10/15/23 bupropion HCl 150 mg tablet,12 hr 150 mg PO BID Depression 03/31/22 10/15/23 sustained-release gabapentin 100 mg capsule 100 mg PO TID neuropathy 03/31/22 10/15/23 insulin glargine 100 unit/mL (3 15 unit SQ DAILY Diabetes 03/31/22 10/15/23 mL) subcutaneous pen (Lantus Solostar U-100 Insulin) lisinopril 2.5 mg tablet 2.5 mg PO DAILY High blood pressure 03/31/22 10/15/23 spironolactone 50 mg tablet 50 mg PO DAILY High blood pressure 03/31/22 10/15/23 tizanidine 4 mg tablet 4 mg PO BID neuropathy 03/31/22 10/15/23 atorvastatin 40 mg tablet 40 mg PO HS 05/06/23 10/15/23 famotidine 20 mg tablet 20 mg PO BID 05/06/23 10/15/23 insulin lispro 100 unit/mL 20 unit SQ ACHS 05/06/23 10/15/23 subcutaneous pen (Humalog KwikPen (U-100) Insulin) meclizine 25 mg tablet 25 mg PO TID 05/06/23 10/15/23 methocarbamol 500 mg tablet 500 mg PO TID 05/06/23 10/15/23 allopurinol 100 mg tablet 100 mg PO DAILY 05/07/23 10/15/23 cholecalciferol (vitamin D3) 10 400 mcg PO DAILY 05/07/23 10/15/23 mcg (400 unit) tablet conjugated estrogens 0.3 mg tablet 0.3 mg PO DAILY 05/07/23 10/15/23 (Premarin) hydrocodone 5 mg-acetaminophen 325 1 tab PO TIDP PRN Pain 05/07/23 10/15/23 mg tablet polyethylene glycol 3350 17 17 g PO DAILY 05/07/23 10/15/23 gram/dose oral powder topiramate 100 mg tablet 200 mg PO HS migraine 05/07/23 11/19/23 promethazine 25 mg tablet 25 mg PO HS migraine 11/19/23 11/19/23 Previous Rx's ?Medication ?Instructions ?Recorded levofloxacin 500 mg tablet 500 mg PO DAILY #5 tabs 05/09/23 diclofenac sodium 1 % topical gel 4 g topical QID #50 grams 08/29/23 (Voltaren Arthritis Pain) cefdinir 300 mg capsule 300 mg PO BID 7 days #14 caps 01/31/24 fluconazole 150 mg tablet 150 mg PO Q3D 2 doses #2 tabs 01/31/24 Allergies Allergy/AdvReac Type Severity Reaction Status Date / Time acetaminophen [From Tylenol] Allergy Verified 09/11/23 11:01 amoxicillin Allergy Verified 09/11/23 11:01 butorphanol [From Stadol] Allergy Verified 09/11/23 11:01 clavulanic acid Allergy Verified 09/11/23 11:01 fexofenadine Allergy Verified 09/11/23 11:01 ibuprofen Allergy Verified 09/11/23 11:01 ketorolac Allergy Verified 09/11/23 11:01 metoclopramide Allergy Verified 09/11/23 11:01 nizatidine Allergy Verified 09/11/23 11:01 ondansetron [From Zofran] Allergy Verified 09/11/23 11:01 prochlorperazine Allergy Verified 09/11/23 11:01 propoxyphene Allergy Verified 09/11/23 11:01 [facility] Disclaimer: The information contained in this section may have been updated after the patient was seen, as this information can be updated by other users. 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 CAD (coronary artery disease) HLD (hyperlipidemia) VIOLA (acute kidney injury) Fall Vertigo Headache Acute sore throat Upper respiratory infection, viral URI (upper respiratory infection) Depression Anxiety Migraine Diabetes mellitus, type 2 Asthma Hypertension Lumbar radiculopathy Cervical disc disease Exposure to COVID-19 virus Viral upper respiratory infection Laceration Diabetes Prepatellar bursitis, left knee Urinary tract infection Surgical History History of tubal ligation History of tonsillectomy History of section History of cholecystectomy Family History Other Cancer Heart failure Hypertension Social History Smoking Status: Never smoker alcohol intake: never current occupational status: other Travel in the last 8 weeks: None ROS Obtained: Yes All systems reviewed & no additional complaints except as documented Physical Exam General General appearance: alert and in no apparent distress Head Head exam: atraumatic and normocephalic Eye Eye exam: Present normal appearance, PERRL and EOMI ENT ENT exam: Present normal exam, normal oropharynx, mucous membranes moist and normal external ear exam Neck Neck exam: Present trachea midline, tenderness and other (Patient has tenderness to palpation of the left sided paraspinal muscles/traps. No midline tenderness. ); Absent meningismus or lymphadenopathy Chest Chest inspection: Present normal inspection and symmetric chest wall rise; Absent tenderness Respiratory Respiratory exam: Present normal lung sounds bilaterally; Absent respiratory distress, wheezes, stridor or accessory muscle use Cardiovascular Cardiovascular exam: Present regular rate and normal rhythm Abdominal Exam Abdominal exam: Present soft; Absent distention, tenderness or guarding Extremities Exam Extremities exam: Present normal inspection, full ROM and normal capillary refill; Absent tenderness or edema Back Exam Back exam: Present normal inspection and full ROM; Absent tenderness Neurological Exam Neurological exam: Present alert, oriented X3, CN II-XII intact and normal gait; Absent motor sensory deficit Psychiatric Psychiatric exam: Present normal affect and normal mood Skin Skin exam: Present warm and dry Medical Decision Making Medical Records Medical records reviewed: Yes I reviewed the patient's medical records. Mirza Inquiry Pt receiving controlled substance: No Vital Signs: 02/09/24 13:00 02/09/24 13:30 02/09/24 14:00 Temperature 98.1 F Temperature Source Oral Pulse Rate 79 73 Pulse Rate [Left] 94 H Respiratory Rate 18 Blood Pressure 152/82 H 138/75 Blood Pressure [Right Arm] 163/89 H Blood Pressure Mean 109 99 Blood Pressure Mean [Right Arm] 113 Blood Pressure Source [Right Arm] Automatic Cuff Blood Pressure Position [Right Arm] Sitting 02 Sat by Pulse Oximetry 99 100 100 Oxygen Delivery Method Room Air Room Air Room Air 02/09/24 14:30 02/09/24 15:00 Temperature Temperature Source Pulse Rate 71 70 Pulse Rate [Left] Respiratory Rate 20 Blood Pressure 156/79 H 135/70 Blood Pressure [Right Arm] Blood Pressure Mean 91 Blood Pressure Mean [Right Arm] Blood Pressure Source [Right Arm] Blood Pressure Position [Right Arm] 02 Sat by Pulse Oximetry 100 100 Oxygen Delivery Method Room Air Room Air Lab Data Lab results reviewed: Yes I reviewed the patient's lab results. Orders (Tests/Meds): ED MEDICATIONS Discontinued Medications Generic Name Dose Route Start Last Admin Trade Name Irvin PRN Reason Stop Dose Admin Acetaminophen 1,000 mg 02/09/24 13:28 02/09/24 13:33 Acetaminophen 500mg Tab PO 02/09/24 13:29 Not Given ONCE ONE Ketorolac Tromethamine 30 mg 02/09/24 13:28 02/09/24 13:33 Ketorolac 30mg/Ml Vial IM 02/09/24 13:29 Not Given ONCE ONE Lidocaine 1 each 02/09/24 13:28 02/09/24 13:37 Lidocaine 5% Transdermal Patch TP 02/09/24 13:29 1 each ONCE ONE Administration Methocarbamol 500 mg 02/09/24 13:29 02/09/24 13:37 Methocarbamol 500mg Tablet PO 02/09/24 13:30 500 mg ONCE ONE Administration Promethazine HCl 12.5 mg 02/09/24 14:06 02/09/24 14:14 Promethazine Hcl 12.5mg Tablet PO 02/09/24 14:07 12.5 mg ONCE ONE Administration ORDERS Category Date Time Status CT cervical spine wo con Stat Cat Scan 02/09/24 13:[address] head/brain wo con Stat Cat Scan 02/09/24 13:28 Completed Medical Decision Narrative: In summary, this patient is a 63-year-old female presenting to the Emergency Department for evaluation of neck pain and headache. Differential diagnoses considered include but are not limited to musculoskeletal strain/sprain, cervicogenic migraine, tension headache. Ruling out the most morbid conditions drove assessment. On exam, the patient is well-appearing. She is alert and oriented with no focal neurologic deficits. She has paraspinal muscle tenderness but no meningismus. She is afebrile. I feel this is likely musculoskeletal. She has had multiple ED evaluations for similar symptoms in the past. She has multiple allergies and the only thing that she states that she can take is Phenergan. I did give her a dose of Phenergan here as well as Lidoderm patch and Robaxin. She is allergic to Toradol, Tylenol, and multiple other medications. I reviewed past medical records and she has had multiple previous ED visits for similar issues. I do n ot feel that she has any new features at this time. I did obtain CT head without contrast and CT C-spine without contrast to assess for any significant changes from the past. CT scans do not demonstrate any acute changes from prior. On reassessment, the patient states that she still in pain and really needs pain medication. She states she needs Lortab. She states that she does not have a pain medicine clinic visit until , and that is when they will refill her pain medication. I advised her that we cannot refill her pain medication that she takes for chronic pain. She said what about Tylenol 3? I advised her again that she will have to follow-up closely outpatient for refills of her chronic opioid pain medications. Ultimately, I feel that she is at her baseline and we ruled out acute life-threatening pathology based on history and clinical exam. I feel she is appropriate for discharge home. I did give her a one-time dose of [place] here and gave her instructions for close outpatient follow-up and strict return precautions. Critical Care Critical Care Time Critical Care Time: No
[2024-02-09] MEDS: PROMETHAZINE HCL 12.5MG TABLET 12.5 MG PO (14:14)
--- NOTE | 2024-02-09 14:16 | PC.NURSE ---
I rounded on the pt, no needs voiced. pt denies new complaints. call olvera in reach.
[2024-02-09] MEDS: HYDROCODONE/APAP 5/325 MG TABLET 1 TAB PO (15:33)
== END 2024-02-09 15:49 | disposition home or self-care (01) ==
PROVIDERS: Emergency Provider Emergency Medicine; PCP Family Medicine
DX: G43.909 Migraine, unspecified, not intractable, without status migrainosus (principal); M54.12 Radiculopathy, cervical region; M54.2 Cervicalgia
CPT/HCPCS: 70450; 72125; 96372; 99284

== ENCOUNTER 2024-03-01 11:00 | Outpatient (RCR) | payer MEDICAID, SELFPAY | END 2024-03-01 11:05 | disposition home or self-care (01) | LOC: PT 11:00 | PROVIDERS: Visit Provider Family Medicine | DX: M54.2 Cervicalgia (principal) | CPT/HCPCS: 97163 ==

== ENCOUNTER 2024-04-10 14:32 | Emergency (ER) | payer MEDICAID, SELFPAY ==
[2024-04-10 14:33] VITALS: BP 147/83; PULSE 83; RESP 18; TEMP 36.5; O2SAT 99; BMI 27.3
--- NOTE | 2024-04-10 14:43 | ED_ITS ---
<Statement entered by Deirdre Navarro MD - 04/10/24 22:02> I was consulted by the GONZALEZ, and we discussed the complexity of the problems being addressed. I approved the treatment and management plan for this patient's care in the emergency department, thus performing a substantive portion of the medical decision making. Deirdre Navarro MD, SREEKANTH, FACEP Discharge Plan Disposition Patient Disposition: Home, Self-Care Condition: Good Prescriptions Prescriptions: No Action bupropion HCl 150 mg tablet sustained-release 12 hr 150 mg PO BID tizanidine 4 mg tablet 4 mg PO BID amlodipine 5 mg tablet 5 mg PO DAILY aspirin 81 mg tablet,chewable 81 mg PO DAILY gabapentin 100 mg capsule 100 mg PO TID lisinopril 2.5 mg tablet 2.5 mg PO DAILY spironolactone 50 mg tablet 50 mg PO DAILY insulin glargine [Lantus Solostar U-100 Insulin] 100 unit/mL (3 mL) insulin pen 15 unit SQ DAILY Rx Instructions: units per MD daily diclofenac sodium [Voltaren Arthritis Pain] 1 % gel 4 g topical QID Qty: 50 0RF Rx Instructions: apply to single knee, ankle, foot; for foot includes sole/toes/top of foot promethazine 25 mg tablet 25 mg PO HS cefdinir 300 mg capsule 300 mg PO BID 7 Days Qty: 14 0RF fluconazole 150 mg tablet 150 mg PO Q3D Qty: 2 0RF Rx Instructions: may repeat second dose 72 hrs after first dose if symptoms persist atorvastatin 40 mg tablet 40 mg PO HS methocarbamol 500 mg tablet 500 mg PO TID famotidine 20 mg tablet 20 mg PO BID meclizine 25 mg tablet 25 mg PO TID insulin lispro [Humalog KwikPen Insulin] 100 unit/mL insulin pen 20 unit SQ ACHS hydrocodone-acetaminophen 5-325 mg tablet 1 tab PO TIDP PRN (Reason: Pain) allopurinol 100 mg tablet 100 mg PO DAILY polyethylene glycol 3350 17 gram/dose powder 17 g PO DAILY topiramate 100 mg tablet 200 mg PO HS cholecalciferol (vitamin D3) 10 mcg (400 unit) tablet 400 mcg PO DAILY Premarin 0.3 mg tablet 0.3 mg PO DAILY levofloxacin 500 mg tablet 500 mg PO DAILY Qty: 5 0RF Referrals Follow up/Referrals: Lupillo Garcia MD [Primary Care Provider] - See instructions Activity Restrictions/Add. Instructions Additional Instructions/Restrictions: If symptoms worsen or do not improve return Follow-up with PCP this week Clinical Impressions Clinical Impression: Migraine, Acute sore throat Instructions Patient Instructions: Sore Throat, Migraine -- Adult, DI for Migraine Print Language Print Language: Amharic Discharge ED Provider: Deirdre Navarro General Adult HPI General Chief complaint: Upper Respiratory Infection Stated complaint: dizzy, migraine, vomiting, nauseous Time Seen by Provider: 04/10/24 14:43 Mode of Arrival: Ambulatory Source of Information: Patient Limitations: No Limitations Description of Symptoms (Recalled from ER Triage Doc. by RN): headache,sore throat History of Present Illness HPI narrative: 63-year-old female presents for sore throat and headache. Patient states the headache feels like her normal migraine. Patient denies fever. Patient states she takes Topamax twice a day for her migraines Related Data Home Medications ?Medication ?Instructions ?Recorded ?Confirmed amlodipine 5 mg tablet 5 mg PO DAILY 03/31/22 10/15/23 aspirin 81 mg chewable tablet 81 mg PO DAILY 03/31/22 10/15/23 bupropion HCl 150 mg tablet,12 hr 150 mg PO BID Depression 03/31/22 10/15/23 sustained-release gabapentin 100 mg capsule 100 mg PO TID neuropathy 03/31/22 10/15/23 insulin glargine 100 unit/mL (3 15 unit SQ DAILY Diabetes 03/31/22 10/15/23 mL) subcutaneous pen (Lantus Solostar U-100 Insulin) lisinopril 2.5 mg tablet 2.5 mg PO DAILY High blood pressure 03/31/22 10/15/23 spironolactone 50 mg tablet 50 mg PO DAILY High blood pressure 03/31/22 10/15/23 tizanidine 4 mg tablet 4 mg PO BID neuropathy 03/31/22 10/15/23 atorvastatin 40 mg tablet 40 mg PO HS 05/06/23 10/15/23 famotidine 20 mg tablet 20 mg PO BID 05/06/23 10/15/23 insulin lispro 100 unit/mL 20 unit SQ ACHS 05/06/23 10/15/23 subcutaneous pen (Humalog KwikPen (U-100) Insulin) meclizine 25 mg tablet 25 mg PO TID 05/06/23 10/15/23 methocarbamol 500 mg tablet 500 mg PO TID 05/06/23 10/15/23 allopurinol 100 mg tablet 100 mg PO DAILY 05/07/23 10/15/23 cholecalciferol (vitamin D3) 10 400 mcg PO DAILY 05/07/23 10/15/23 mcg (400 unit) tablet conjugated estrogens 0.3 mg tablet 0.3 mg PO DAILY 05/07/23 10/15/23 (Premarin) hydrocodone 5 mg-acetaminophen 325 1 tab PO TIDP PRN Pain 05/07/23 10/15/23 mg tablet polyethylene glycol 3350 17 17 g PO DAILY 05/07/23 10/15/23 gram/dose oral powder topiramate 100 mg tablet 200 mg PO HS migraine 05/07/23 11/19/23 promethazine 25 mg tablet 25 mg PO HS migraine 11/19/23 11/19/23 Previous Rx's ?Medication ?Instructions ?Recorded levofloxacin 500 mg tablet 500 mg PO DAILY #5 tabs 05/09/23 diclofenac sodium 1 % topical gel 4 g topical QID #50 grams 08/29/23 (Voltaren Arthritis Pain) cefdinir 300 mg capsule 300 mg PO BID 7 days #14 caps 01/31/24 fluconazole 150 mg tablet 150 mg PO Q3D 2 doses #2 tabs 01/31/24 Allergies Allergy/AdvReac Type Severity Reaction Status Date / Time acetaminophen [From Tylenol] Allergy Verified 09/11/23 11:01 amoxicillin Allergy Verified 09/11/23 11:01 butorphanol [From Stadol] Allergy Verified 09/11/23 11:01 clavulanic acid Allergy Verified 09/11/23 11:01 fexofenadine Allergy Verified 09/11/23 11:01 ibuprofen Allergy Verified 09/11/23 11:01 ketorolac Allergy Verified 09/11/23 11:01 metoclopramide Allergy Verified 09/11/23 11:01 nizatidine Allergy Verified 09/11/23 11:01 ondansetron [From Zofran] Allergy Verified 09/11/23 11:01 prochlorperazine Allergy Verified 09/11/23 11:01 propoxyphene Allergy Verified 09/11/23 11:01 [facility] Disclaimer: The information contained in this section may have been updated after the patient was seen, as this information can be updated by other users. 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 History of tonsillectomy History of section History of cholecystectomy Family History , [employer]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) Heart failure Cancer Hypertension Social 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 , [employer]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 Status: Never smoker alcohol intake: never current occupational status: other Travel in the last 8 weeks: None Other 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 Have you received the Flu Vaccine for this season: No Have you received the Pneumonia Vaccine: No ROS Obtained: Yes Systems reviewed as appropriate & no additional complaints except as documented Physical Exam General General appearance: alert and in no apparent distress Head Head exam: atraumatic Eye Eye exam: Present normal appearance, PERRL and EOMI ENT ENT exam: Present normal exam, normal oropharynx, mucous membranes moist and TM's normal bilaterally Neck Neck exam: Present normal inspection and full ROM Respiratory Respiratory exam: Present normal lung sounds bilaterally Cardiovascular Cardiovascular exam: Present regular rate and normal rhythm Abdominal Exam Abdominal exam: Present soft Extremities Exam Extremities exam: Present normal inspection Neurological Exam Neurological exam: Present alert, oriented X3 and CN II-XII intact Skin Skin exam: Present warm and intact Medical Decision Making Medical Records Medical records reviewed: Yes I reviewed the patient's medical records. Screening: Per USPSTF and CDC recommendations, given the prevalence of disease in our region, it is our hospital?s policy to screen for HIV and viral Hepatitis for all patients aged 18 and over and those with ongoing risk factors. Mirza Inquiry Pt receiving controlled substance: No Vital Signs: 04/10/24 14:33 Temperature 97.7 F Temperature Source Oral Pulse Rate [Right] 83 Respiratory Rate 18 Blood Pressure [Right Arm] 147/83 H Blood Pressure Mean [Right Arm] 104 02 Sat by Pulse Oximetry 99 Oxygen Delivery Method Room Air Lab Data Lab results reviewed: Yes I reviewed the patient's lab results. Lab Results 04/10/24 14:45: SARS-CoV-2 (PCR) Not detected, Influenza A Untype (PCR) Not detected, Influenza Type B (PCR) Not detected, Group A Strep Rapid Negative Orders (Tests/Meds): ED MEDICATIONS Discontinued Medications Generic Name Dose Route Start Last Admin Trade Name Freq PRN Reason Stop Dose Admin Promethazine HCl 12.5 mg 04/10/24 16:07 04/10/24 16:09 Promethazine Hcl 12.5mg Tablet PO 04/10/24 16:08 12.5 mg ONCE ONE Administration ORDERS Category Date Time Status HIV (1&2) Antibody Rapid Stat Lab 04/10/24 14:41 Ordered Hep C Ab with Reflex to RNA Stat Lab 04/10/24 14:41 Ordered Rapid PCR Covid and Flu A/B Stat Lab 04/10/24 14:45 Completed Strep Scrn Group A (Rapid) Stat Lab 04/10/24 14:45 Completed Strep Screen Confirmation Stat Micro 04/10/24 14:45 Received Medical Decision Narrative: Insert in summary patient is a 63-year-old female who presents to the emergency department for evaluation of sore throat and headache granddaughter has same symptoms. Patient states feels like her normal migraine. Patient is hemodynamically stable upon arrival, afebrile. Unremarkable physical exam. Differential diagnosis includes migraine, upper respiratory infection. Initial workup will be conducted with strep, COVID and flu swab. Initial inventions include patient was able to tolerate p.o. fluids. Initial workup reviewed by hi swabs were negative. Upon repeat evaluation patient was sitting in chair comfortably laughing and talking with family sipping on a Sprite. Given this given patient was able to tolerate p.o. fluids will discharge patient home. Critical Care Critical Care Time Critical Care Time: No
[2024-04-10 15:26] LABS: Coronavirus 19, PCR Not Detected (NotDetected); Influenza A, PCR Not Detected (NotDetected); Influenza B, PCR Not Detected (NotDetected)
[2024-04-10 15:39] LABS: Strep Scrn Group A (Rapid) Negative (Negative)
[2024-04-10] MEDS: PROMETHAZINE HCL 12.5MG TABLET 12.5 MG PO (16:09)
[2024-04-10 16:13] VITALS: BP 144/77; PULSE 78; RESP 18; TEMP 36.6; O2SAT 98
== END 2024-04-10 16:18 | disposition home or self-care (01) ==
PROVIDERS: Nurse Practitioner Family; Emergency Provider Student in an Organized Health Care Education/Training Program; PCP Family Medicine
DX: G43.909 Migraine, unspecified, not intractable, without status migrainosus (principal); J02.9 Acute pharyngitis, unspecified; R42 Dizziness and giddiness; R11.2 Nausea with vomiting, unspecified
CPT/HCPCS: 87430; 87636; 99283

== ENCOUNTER 2024-06-17 11:09 | Emergency (ER) | payer MEDICAID, SELFPAY ==
[2024-06-17] VITALS (9 sets, daily range): BP systolic 110–167; BP diastolic 75–83; PULSE 54–72; RESP 18; TEMP 36.8; O2SAT 96–99; BMI 23.8
--- NOTE | 2024-06-17 11:18 | HMH.EDGENADL ---
Discharge Plan Disposition Patient Disposition: Home, Self-Care Condition: Good Prescriptions Prescriptions: New promethazine 25 mg tablet 25 mg PO Q6H PRN (Reason: nausea and vomiting) 7 Days Qty: 10 0RF No Action bupropion HCl 150 mg tablet sustained-release 12 hr 150 mg PO BID tizanidine 4 mg tablet 4 mg PO BID amlodipine 5 mg tablet 5 mg PO DAILY aspirin 81 mg tablet,chewable 81 mg PO DAILY gabapentin 100 mg capsule 100 mg PO TID lisinopril 2.5 mg tablet 2.5 mg PO DAILY spironolactone 50 mg tablet 50 mg PO DAILY insulin glargine [Lantus Solostar U-100 Insulin] 100 unit/mL (3 mL) insulin pen 15 unit SQ DAILY Rx Instructions: units per MD daily diclofenac sodium [Voltaren Arthritis Pain] 1 % gel 4 g topical QID Qty: 50 0RF Rx Instructions: apply to single knee, ankle, foot; for foot includes sole/toes/top of foot promethazine 25 mg tablet 25 mg PO HS cefdinir 300 mg capsule 300 mg PO BID 7 Days Qty: 14 0RF fluconazole 150 mg tablet 150 mg PO Q3D Qty: 2 0RF Rx Instructions: may repeat second dose 72 hrs after first dose if symptoms persist atorvastatin 40 mg tablet 40 mg PO HS methocarbamol 500 mg tablet 500 mg PO TID famotidine 20 mg tablet 20 mg PO BID meclizine 25 mg tablet 25 mg PO TID insulin lispro [Humalog KwikPen Insulin] 100 unit/mL insulin pen 20 unit SQ ACHS hydrocodone-acetaminophen 5-325 mg tablet 1 tab PO TIDP PRN (Reason: Pain) allopurinol 100 mg tablet 100 mg PO DAILY polyethylene glycol 3350 17 gram/dose powder 17 g PO DAILY topiramate 100 mg tablet 200 mg PO HS cholecalciferol (vitamin D3) 10 mcg (400 unit) tablet 400 mcg PO DAILY Premarin 0.3 mg tablet 0.3 mg PO DAILY levofloxacin 500 mg tablet 500 mg PO DAILY Qty: 5 0RF Referrals Follow up/Referrals: Lupillo Garcia MD [Primary Care Provider] - See instructions Activity Restrictions/Add. Instructions Additional Instructions/Restrictions: I have prescribed nausea medication to [facility]. Your COVID test was positive. Please make sure you are staying hydrated and return with any new or worsening symptoms Clinical Impressions Clinical Impression: COVID-19 Print Language Print Language: Tanzanian Discharge ED Provider: Sandeep Teran General Adult HPI General Chief complaint: Upper Respiratory Infection Stated complaint: cough, headache, sore throat, weak Time Seen by Provider: 06/17/24 11:18 History of Present Illness HPI narrative: Patient presents for concerns for upper respiratory illness in the setting of recent sick contact with COVID-19. Patient describes associated nausea and vomiting in the absence of abdominal pain hematemesis palpitations syncope presyncope or decreased urine output. No previous therapies. No headache. Please note that above description of symptoms, in this electronic medical record under categorization of recalled from ER triage doctor by RN are reflective of an initial nursing assessment, however, is not reflective of my full history and physical exam that was personally taken and clarified. Consequentially, this preceding description of symptoms, which may include the patient's categorized chief complaint in the EMR, do not reflect my personal clinical impression, and the ultimate description of history of present illness and patient stated complaints should be deferred to this section of the note. Unless stated otherwise or congruent with this section of the note, additional signs, symptoms, or incongruence should be interpreted as inaccurate with my clinical impression. Related Data Home Medications ?Medication ?Instructions ?Recorded ?Confirmed amlodipine 5 mg tablet 5 mg PO DAILY 03/31/22 10/15/23 aspirin 81 mg chewable tablet 81 mg PO DAILY 03/31/22 10/15/23 bupropion HCl 150 mg tablet,12 hr 150 mg PO BID Depression 03/31/22 10/15/23 sustained-release gabapentin 100 mg capsule 100 mg PO TID neuropathy 03/31/22 10/15/23 insulin glargine 100 unit/mL (3 15 unit SQ DAILY Diabetes 03/31/22 10/15/23 mL) subcutaneous pen (Lantus Solostar U-100 Insulin) lisinopril 2.5 mg tablet 2.5 mg PO DAILY High blood pressure 03/31/22 10/15/23 spironolactone 50 mg tablet 50 mg PO DAILY High blood pressure 03/31/22 10/15/23 tizanidine 4 mg tablet 4 mg PO BID neuropathy 03/31/22 10/15/23 atorvastatin 40 mg tablet 40 mg PO HS 05/06/23 10/15/23 famotidine 20 mg tablet 20 mg PO BID 10/31/23 04/10/24 insulin lispro 100 unit/mL 20 unit SQ ACHS 05/06/23 10/15/23 subcutaneous pen (Humalog KwikPen (U-100) Insulin) meclizine 25 mg tablet 25 mg PO TID 05/06/23 10/15/23 methocarbamol 500 mg tablet 500 mg PO TID 05/06/23 10/15/23 allopurinol 100 mg tablet 100 mg PO DAILY 05/07/23 10/15/23 cholecalciferol (vitamin D3) 10 400 mcg PO DAILY 05/07/23 10/15/23 mcg (400 unit) tablet conjugated estrogens 0.3 mg tablet 0.3 mg PO DAILY 05/07/23 10/15/23 (Premarin) hydrocodone 5 mg-acetaminophen 325 1 tab PO TIDP PRN Pain 05/07/23 10/15/23 mg tablet polyethylene glycol 3350 17 17 g PO DAILY 05/07/23 10/15/23 gram/dose oral powder topiramate 100 mg tablet 200 mg PO HS migraine 05/07/23 11/19/23 promethazine 25 mg tablet 25 mg PO HS migraine 11/19/23 11/19/23 Previous Rx's ?Medication ?Instructions ?Recorded levofloxacin 500 mg tablet 500 mg PO DAILY #5 tabs 05/09/23 diclofenac sodium 1 % topical gel 4 g topical QID #50 grams 08/29/23 (Voltaren Arthritis Pain) cefdinir 300 mg capsule 300 mg PO BID 7 days #14 caps 01/31/24 fluconazole 150 mg tablet 150 mg PO Q3D 2 doses #2 tabs 01/31/24 promethazine 25 mg tablet 25 mg PO Q6H PRN nausea and 06/17/24 vomiting 7 days #10 tabs Allergies Allergy/AdvReac Type Severity Reaction Status Date / Time acetaminophen (From Tylenol) Allergy Verified 09/11/23 11:01 amoxicillin Allergy Verified 09/11/23 11:01 butorphanol (From Stadol) Allergy Verified 09/11/23 11:01 clavulanic acid Allergy Verified 09/11/23 11:01 fexofenadine Allergy Verified 09/11/23 11:01 ibuprofen Allergy Verified 09/11/23 11:01 ketorolac Allergy Verified 09/11/23 11:01 metoclopramide Allergy Verified 09/11/23 11:01 nizatidine Allergy Verified 09/11/23 11:01 ondansetron (From Zofran) Allergy Verified 09/11/23 11:01 prochlorperazine Allergy Verified 09/11/23 11:01 propoxyphene Allergy Verified 09/11/23 11:01 [facility] Disclaimer: The information contained in this section may have been updated after the patient was seen, as this information can be updated by other users. 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) History of tubal ligation History of tonsillectomy History of section History of cholecystectomy Family History , REFERRAL MANAGER) Heart failure Cancer Hypertension Social History , REFERRAL MANAGER) Smoking Status: Never smoker alcohol intake: never current occupational status: other Travel in the last 8 weeks: None Have you lived/traveled outside [place] in past 30 days?: No Contact w/someone who lives/traveled outside US past 30 days?: No Exposure to someone with infectious disease in past 14 days?: No Do you have a fever (greater than 100.4 F or 38 C)?: No Have you tested positive for COVID-19: No Exposed to someone with COVID-19 in past 14 days?: No Do you have a sore throat?: Yes Do you have a cough?: Yes Do you have any weakness?: No Do you have any diarrhea?: No Are you experiencing any unusual bleeding?: No Do you have any muscle aches/pain?: No Do you have any abdominal pain?: No Are you experiencing loss of taste or smell?: No Other 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 Have you received the Flu Vaccine for this season: No Have you received the Pneumonia Vaccine: No ROS Obtained: Yes other As per HPI Physical Exam General General appearance: alert and in no apparent distress Head Head exam: atraumatic and normocephalic Eye Eye exam: Present normal appearance Neck Neck exam: Present normal inspection Chest Chest inspection: Present normal inspection and symmetric chest wall rise Respiratory Respiratory exam: Present normal lung sounds bilaterally; Absent respiratory distress Cardiovascular Cardiovascular exam: Present regular rate and normal rhythm Abdominal Exam Abdominal exam: Present soft Neurological Exam Neurological exam: Present alert and oriented X3 Psychiatric Psychiatric exam: Present normal affect and normal mood Skin Skin exam: Present warm and dry Medical Decision Making Medical Records Medical records reviewed: Yes I reviewed the patient's medical records. Screening: Per USPSTF and CDC recommendations, given the prevalence of disease in our region, it is our hospital?s policy to screen for HIV and viral Hepatitis for all patients aged 18 and over and those with ongoing risk factors. Mirza Inquiry Pt receiving controlled substance: No Vital Signs: 06/17/24 11:23 06/17/24 12:38 06/17/24 12:56 Temperature 98.2 F Temperature Source Oral Pulse Rate 63 55 L Pulse Rate [Right Radial] 72 Respiratory Rate 18 Blood Pressure 151/83 H 151/83 H Blood Pressure [Right Arm] 110/76 Blood Pressure Mean [Right Arm] 87 02 Sat by Pulse Oximetry 99 98 96 Oxygen Delivery Method Room Air Room Air 06/17/24 13:00 06/17/24 13:30 06/17/24 14:01 Temperature Temperature Source Pulse Rate 56 L 55 L 61 Pulse Rate [Right Radial] Respiratory Rate Blood Pressure 159/80 H 167/82 H 156/75 H Blood Pressure [Right Arm] Blood Pressure Mean [Right Arm] 02 Sat by Pulse Oximetry 96 97 97 Oxygen Delivery Method Room Air Room Air 06/17/24 14:30 06/17/24 15:00 06/17/24 15:08 Temperature 98.2 F Temperature Source Oral Pulse Rate 63 54 L 72 Pulse Rate [Right Radial] Respiratory Rate 18 Blood Pressure 156/83 H 160/76 H 110/76 Blood Pressure [Right Arm] Blood Pressure Mean [Right Arm] 02 Sat by Pulse Oximetry 98 98 Oxygen Delivery Method Lab Data Lab Results 06/17/24 11:20: SARS-CoV-2 (PCR) Detected A, Influenza A Untype (PCR) Not detected, Influenza Type B (PCR) Not detected Orders (Tests/Meds): ED MEDICATIONS Discontinued Medications Generic Name Dose Route Start Last Admin Trade Name Irvin PRN Reason Stop Dose Admin Ondansetron HCl 4 mg 06/17/24 12:05 06/17/24 12:09 Ondansetron 4mg Odt SL 06/17/24 12:06 4 mg ONCE ONE Administration ORDERS Category Date Time Status XR chest 2V Stat Exams 06/17/24 11:20 Completed Rapid PCR Covid and Flu A/B Stat Lab 06/17/24 11:20 Completed Medical Decision Narrative: Patient with history and exam per above presenting for evaluation of exposure to COVID-19 Diagnoses considered include COVID-19, other upper respiratory illness ED workup and treatment included: COVID, flu testing Labs were independently interpreted by me, significant for COVID-positive Patient was able to tolerate p.o. intake upon repeat evaluation. I discussed my clinical impression with patient and answered all questions. At this time, the evidence for any other entities in the differential is insufficient to warrant any further testing or ED observation. This was explained to the patient. The patient was advised that persistent or worsening symptoms require further evaluation. Critical Care Critical Care Time Critical Care Time: No
--- NOTE | 2024-06-17 11:20 | XR_ITS ---
FINAL REPORT CLINICAL HISTORY: Shortness of breath, cough COMPARISON: None FINDINGS: Two views of the chest were obtained. The heart size and pulmonary vascularity are within normal limits. The mediastinum is normal. No acute pulmonary abnormality is identified. There is no pneumothorax. There are postoperative changes with spinal rods present in the mid thoracic region. IMPRESSION: No active cardiopulmonary disease. Reviewed, Interpreted and Dictated by Mroteza Curry III, MD Transcribed by Gracy Seals Authenticated and [facility]
[2024-06-17 11:35] LABS: Influenza A, PCR Not Detected (NotDetected); Influenza B, PCR Not Detected (NotDetected)
--- NOTE | 2024-06-17 11:57 | PC.NURSE ---
pt going to radiology at this time.
--- NOTE | 2024-06-17 11:59 | PC.NURSE ---
pt returned from radiology.
[2024-06-17] MEDS: ONDANSETRON 4MG ODT 4 MG SL (12:09)
[2024-06-17 12:18] LABS: Coronavirus 19, PCR Detected (NotDetected)
--- OUTSIDE RECORDS SUMMARY | 2024-06-22 10:18 | XMS_ITS | Clinical Summary ---
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 Role Phone Lupillo Garcia MD Primary Care Provider Family History 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 Relation Name Comments Hypertension Father Stroke Father Hypertension Mother Stroke Mother Relation Name Status Comments Father Mother Social History Tobacco Use Types Packs/Day Years Used Date Smoking Tobacco: Never Alcohol Use Standard Drinks/Week Comments No 0 (1 standard drink = 0.6 oz pur e alcohol) Comments Unknown Sex and Gender Information Value Date Recorded Sex Assigned at Not on file Legal Sex Female 8:29 PM EDT Gender Identity Not on file Sexual Orientation Not on file Last Filed Vital Signs Vital Sign Reading Time Taken Comments Blood Pressure 117/71 05/04/2019 9:40 AM EDT Pulse 69 05/04/2019 9:40 AM EDT Temperature 36.4 ??C (97.5 ??F) 09/25/2017 2:52 PM ED T Respiratory Rate - - Oxygen Saturation - - Inhaled Oxygen Concentration - - Weight 72.1 kg (158 lb 15.9 oz) 05/04/2019 9:40 AM EDT Height 153.7 cm (5' 0.5 ) 05/04/2019 9:40 AM EDT Body Mass Index 30.54 05/04/2019 9:40 AM EDT Plan of Treatment Health Maintenance Due Date Last Done Comments [facility]-Depression Screening 1960 [facility]-Infant/Child/Adol SDOH Screenings 1960 [facility]- SDOH Screenings 1978 [facility]-Adult SDOH Screenings 1978 [facility]-DTaP,Tdap,and Td Vaccine s (1 - Tdap) 1979 [facility]-Pap Smear 1981 [facility]-Cervical Cancer Screening 1990 [facility]-HPV/Cotest 1990 CT Colonography 2005 Colonoscopy 2005 FIT-DNA 2005 FIT 2005 FOBT 2005 Sigmoidoscopy 2005 [facility]-Colorectal Cancer Screening 2005 [facility]-Zoster Vaccines (1 of 2) 2010 [id number]-WGHDV-41 Vaccine (1 - 20 24-25 season) 2024 [facility]-Influenza Vaccine (#1) 2024 [facility]-RSV Vaccine: 60+ Years o r (1 - 1-dose 75+ series) 2035 [facility]-HIB Vaccines Aged Out No longer e ligible based on patient's age to complete this topic [facility]-HPV Vaccines Aged Out No longer e ligible based on patient's age to complete this topic [facility]-Hepatitis A Vaccines Aged Out No longer eligible based on patient's age to complete this topic [facility]-IPV Vaccines Aged Out No longer e ligible based on patient's age to complete this topic [facility]-Pneumococcal Vaccine: Pediatrics (0 to 5 Years) and At-Risk Patients (6 to 64 Years) Aged Out No long er eligible based on patient's age to complete this topic [facility]-Rotavirus Vaccines Aged Out No lo nger eligible based on patient's age to complete this topic Insurance [employer] Care Teams Cinder Pit 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
--- OUTSIDE RECORDS SUMMARY | 2024-06-22 10:18 | XMS_ITS | Encounter Summary ---
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 Name Role Phone Lupillo Garcia MD Primary Care Provider [phone] Encounter Details Date Type Department Care Team (Late st Contact Info) Description 01/22/2024 Lab Requisition [facility] [address] [place] [address] Darius Enriquez, DPM [address] [place] [id number] Other hammer toe(s) (acquired), right foot Social History Tobacco Use Types Packs/Day Years Used Date Smoking Tobacco: Never Alcohol Use Standard Drinks/Week Comments No 0 (1 standard drink = 0.6 oz pur e alcohol) Comments Unknown Sex and Gender Information Value Date Recorded Sex Assigned at Not on file Legal Sex Female 8:29 PM EDT Gender Identity Not on file Sexual Orientation Not on file documented as of this encounter Plan of Treatment Not on file documented as of this encounter Procedures Procedure Name Priority Date/Time Associated Diagnosis Comments SURGICAL PATHOLOGY EXAM Routine 01/22/2024 Other hammer toe(s) (acquired), right foot documented in this encounter Results * Surgical Pathology Exam (01/22/2024) Case Report Surgical Pathology ?Case: [id number] ? Authorizing Provider: ??Darius Enriquez, LINDSAY ?Collected: ? 01/22/2024 ? Ordering Location: ? [facility] ?Received: ?01/22/2024 1344 ? Pathologist: ? Jil Tong MD ? Specimen: ?Foot, Right, Head of Proximal Phalanx, Right 4th and 5th Toes ? 01/22/2024 3:46 PM EDT [facility] Final Diagnosis FRAGMENTS OF TOES, GROSS DIAGNOSIS ONLY (HISTORY OF HAMMER TOES). 01/22/2024 3:46 PM EDT [facility] Clinical Information Other hammer toe(s) (acquired), right foot Hammertoes right 4th and 5th toe 01/22/2024 3:46 PM EDT [facility] Gross Description A. HEAD OF PROXIMAL PHALANX, RIGHT 4TH AND 5TH TOES Received in formalin labeled ? foot, right, head of proximal phalanx, right 4th and 5th toes , are 2 white/yellow fragments of bone measuring 1.1 x 0.6 x 0.3 cm in aggregate. The external surface is glistening and ragged. Specimen submitted for gross examination only. Devika Cavazos 01/22/2024 3:46 PM EDT [facility] Note: A resident was involved in the service. I attest I examined the relevant preparations for the specimens and confirmed the diagnosis or interpretation. 01/22/2024 3:46 PM EDT [facility] Tissue Structure of right foot / Unknown 01/22/2024 01/22/2024 1:44 PM EDT us Darius Enriquez DPM LAB PATHOLOGY ORDERABLES Fin al Result [facility] [address] [place] [address] documented in this encounter Visit Diagnoses Diagnosis Other hammer toe(s) (acquired), right foot documented in this encounter Care Teams Fabricator Special Items Relationship Specialty Start Date End Date Lupillo Garcia MD [address] [place] [address] PCP - General 11/17/20 documented as of this encounter
--- OUTSIDE RECORDS SUMMARY | 2024-06-22 10:19 | XMS_ITS | Encounter Summary ---
Author Organization [place] [address] Care Team Providers Care Donor Recruitment Manager Name Role Phone Lupillo Garcia MD Primary Care Provider [phone] Reason for Referral * Mammography (Routine) - Pending Review Specialty Diagnoses / Procedures Referred By Artis enamorado Referred To Contact Radiology Diagnoses Encounter for screening mammogram for malignant neoplasm of breast Procedures MM MAMMO DIGITAL MICHEAL SCREEN Lupillo Kerr MD [address] [place] [address] Phone: tel: fax: Referral ID Status Reason Start Date Expiration Date V isits Requested Visits Authorized [id number] Pending Review 11/25/2023 11/24/2025 1 1 Reason for Visit * Mammography (Routine) - Pending Review Specialty Diagnoses / Procedures Referred By Artis enamorado Referred To Contact Radiology Diagnoses Encounter for screening mammogram for malignant neoplasm of breast Procedures MM MAMMO DIGITAL MICHEAL SCREEN Lupillo Kerr MD [address] [place] [address] Phone: tel: fax: Referral ID Status Reason Start Date Expiration Date V isits Requested Visits Authorized [id number] Pending Review 11/25/2023 11/24/2025 1 1 Encounter Details Date Type Department Care Team (Latest Contact Info) Description 12/08/2023 11:00 AM EDT - 12/08/2023 11:59 PM EDT Hospital Encounter [facility] [address] [place] [id number] Lupillo Garcia MD [address] [place] [address] Encounter for screening mammogram for malignant neoplasm of breast Discharge Disposition: Home or Self Care Social History Tobacco Use Types Packs/Day Years Used Date Smoking Tobacco: Never Smokeless Tobacco: Never Alcohol Use Standard Drinks/Week Comments No 0 (1 standard drink = 0.6 oz pur e alcohol) Comments No Sex and Gender Information Value Date Recorded Sex Assigned at Not on file Legal Sex Female 11:13 PM EDT Gender Identity Not on file Sexual Orientation Not on file documented as of this encounter Medications at Time of Discharge albuterol (PROVENTIL HFA;VENTOLIN HFA) 90 mcg/actuation inhaler Inhale 2 Puffs into the lungs every 6 hours as needed for Wheezing. atorvastatin (LIPITOR) 40 mg Oral Tablet Take 40 mg by mouth daily. buPROPion (WELLBUTRIN SR) 150 mg SR tablet Take 150 mg by mouth 2 times daily. diazePAM (VALIUM) 5 mg Oral Tablet Take by mouth every 8 hours. estrogens, conjugated, (PREMARIN) 0.3 mg tablet Take 0.3 mg by mouth daily. fenofibrate (LOFIBRA) 160 mg tablet Take 160 mg by mouth daily. gabapentin (NEURONTIN) 100 mg Oral Capsule Take 100 mg by mouth 3 times daily. HYDROcodone-aceta minophen (LORTAB) 10-500 mg Take 1 Tab by mouth every 6 hours as needed. Insulin glargine (LANTUS) 100 unit/mL (3 mL) SubQ Insulin Pen Subcutaneous (Inject under the skin) 20 Units nightly. 15 units am INSULIN LISPRO (HUMALOG SUBQ) Subcutaneous (Inject under the skin). Sliding scale loperamide (IMODIUM) 2 mg Oral Capsule Take 1 Capsule by mouth 4 times daily as needed for Diarrhea. 30 Capsule 03/09/2021 methocarbamoL (ROBAXIN) 500 mg Oral Tablet Take 500 mg by mouth 4 times daily. metoprolol (LOPRESSOR) 25 mg tablet Take 25 mg by mouth 2 times daily. omeprazole (PRILOSEC) 20 mg Take 20 mg by mouth daily. promethazine (PHENERGAN) 25 mg tablet Take 25 mg by mouth every 6 hours as needed for Nausea. Saccharomyces boulardii (FLORASTOR) 250 mg Oral Capsule Take 1 Capsule by mouth 2 times daily. 30 Capsule 03/09/2021 Sodium Bicarbonate 650 mg Oral Tablet Take 1 Tablet by mouth 2 times daily. 60 Tablet 03/09/2021 SUMAtriptan (IMITREX) 100 mg tablet Take 100 mg by mouth once as needed for Migraine. tiZANidine (ZANAFLEX) 4 mg tablet Take 4 mg by mouth 3 times daily. Take 11/2 tabs as needed tocopherol acetate (VITAMIN E) 400 unit Oral Capsule Take 400 Units by mouth daily. topiramate (TOPAMAX) 100 mg Oral Tablet Take by mouth 2 times daily. documented as of this encounter Discharge Disposition Disposition Code Departure Means Destination Home or Self Care documented in this encounter Plan of Treatment Not on file documented as of this encounter Procedures Procedure Name Priority Date/Time Associated Diagnosis Comments MM MAMMO DIGITAL MICHEAL SCREEN BILAT Routine 12/08/2023 11:07 AM EDT Encounter for screening mammogram for malignant neoplasm of breast documented in this encounter Results * MM MAMMO DIGITAL MICHEAL SCREEN BILAT (12/08/2023 11:07 AM EDT) Anatomical Region Laterality Modality Breast Bilateral Mammography 12/09/2023 9:18 AM EDT Impressions 12/09/2023 9:18 AM EDT Negative ??([id number]) ~ RECOMMENDATION: Routine screening mammogram in 1 year. ~ DISCLAIMER * Any patient with a palpable abnormality, unexplained by breast imaging, should be managed on clinical basis by the attending physician. * Breast imaging has a false negative rate of 15%. * The patient was notified by mail of the results of this examination. *The patient's information was entered into a reminder system with a target due date for the next mammogram, in accordance with the [employer] [place] and the Society of Breast Imaging recommendations. Narrative 12/09/2023 9:18 AM EDT Procedure:MM MAMMO DIGITAL MICHEAL SCREEN BILAT ~ Reason for exam: screening, asymptomatic. Z12.31-Encounter for screening mammogram for malignant neoplasm of [id number] ~ MM MAMMO DIGITAL MICHEAL SCREEN BILAT Bilateral CC and MLO view(s) were taken. The breast tissue is heterogeneously dense. ??This may lower the sensitivity of mammography. Prior study comparison: None. This is a baseline mammogram. No mammographic evidence of malignancy. ~ Procedure Note Ifrah Zaidi MD - 12/09/2023 Procedure:MM MAMMO DIGITAL MICHEAL SCREEN BILAT ~ Reason for exam: screening, asymptomatic. Z12.31-Encounter for screening mammogram for malignant neoplasm of [id number] ~ MM MAMMO DIGITAL MICHEAL SCREEN BILAT Bilateral CC and MLO view(s) were taken. The breast tissue is heterogeneously dense. This may lower thesensitivity of mammography. Prior study comparison: None. This is a baseline mammogram. No mammographic evidence of malignancy. ~ IMPRESSION: Negative ([id number]) ~ RECOMMENDATION: Routine screening mammogram in 1 year. ~ DISCLAIMER * Any patient with a palpable abnormality, unexplained by breast imaging, should be managed on clinical basis by the attending physician. * Breast imaging has a false negative rate of 15%. * The patient was notified by mail of the results of this examination. *The patient's information was entered into a reminder system with atarget due date for the next mammogram, in accordance with the [employer] [place] and the Society of Breast Imaging recommendations. Lupillo Garcia MD IMG MAMMOGRAPHY ORDERABLES Final Result documented in this encounter Visit Diagnoses Diagnosis Encounter for screening mammogram for malignant neoplasm of breast Other screening mammogram documented in this encounter Care Teams Donor Recruitment Manager Relationship Specialty Start Date End Date Lupilol Garcia MD PCP - General Family Medicine 11/10/12 documented as of this encounter
--- OUTSIDE RECORDS SUMMARY | 2024-06-22 10:19 | XMS_ITS | Encounter Summary ---
Author Organization [facility] Address [address] [place] [address] Care Team Providers Care Tip Finisher Name Role Phone Unavailable Primary Care Provider Unavailabl e Encounter Details Date Type Department Care Team (Latest Contact Info) Description 09/29/2017 2:05 PM EDT - 10/03/2017 3:09 PM EDT Hospital Encounter [facility] Inpatient [address] [place] [address] ProviderSanjuana MD [address] [place] [address] Infection following procedure Social History Tobacco Use Types Packs/Day Years Used Date Smoking Tobacco: Never Assessed Comments Unknown Sex and Gender Information Value Date Recorded Sex Assigned at Not on file Legal Sex Female 8:29 PM EDT Gender Identity Not on file Sexual Orientation Not on file documented as of this encounter Miscellaneous Notes * Social Care Assessment Summary - ProviderSanjuana MD - 10/03/2017 12:00 AM EDT Patient Name: OSBALDO GRECO Date of : 1960 Discharge Note Discharge Note Who Will Provide Assistance Post-Discharge? Answers: Family How Many Hours is/are the Caregiver(s) Available? Answers: 24 Hours Discharge Disposition Answers: Home Return home with . Is Home Health Needed? If Yes, Specify Agency Name and Service Needed. Answers: Yes [facility] ph# Is DME Needed? If Yes, Select Type of Equipment Needed and DME Company. Answers: No DME Needs Is Patient Being Discharged with any of the Following? If Yes, Specify Agency and Phone Number. Please Provide Details in Additional Comments Box Below. Answers[facility] Friday, Friday and Friday. I Certify that the Patient has been Provided with a Choice for DME, Home Health, Infusion Services and Facility. Answers: Yes Is This a High-Risk LACE Patient? Answers: No Follow Up Appointments Scheduled? Answers: Yes 10/09/17 at 2:45pm with Dr. Tang. Does the Patient Have Transportation to Follow up Appointments? Answers: Yes Scholarship? Answers: No CHRISS? Answers: No Medicare Second Notice? Answers: Not applicable Were Services Declined? Answers: No Additional Comments: Notes: Discussed this patient this morning with surgery team. They plans to discharge patient home today. Surgery team has changed her wound vac dressing today and she will require next Wound Vac dressing on 10/06/17. I have contacted [facility] today with pending discharge and they are aware that next Wound Vac dressing change will need to be completed on 10/06/17. I [facility] . Patient's will transport her home at discharge. Electronically signed by: Tiffanie Hays * Discharge Summary - Panfilo Arreola MD - 10/03/2017 12:00 AM EDT HOSPITALIZATION: Admit Date:29-Sep-2017 Discharge Date:03-Oct-2017 Discharge Atttending Panfilo Avilez MD Primary Care Physician Layton Cordero Admitting DiagnosisDisruption of wound, unspecified, initial encounter DISCHARGE DIAGNOSIS: * Discharge Diagnosis 1Wound disruption Reason for Hospitalization Tyra Greco is a 57 yo female who is s/p ventral hernia repair performed 08/26 and discharged 09/05. Patient was subsequently admitted from 09/11 to 09/14 for abdominal pain and nausea and vomiting. During that admission, patient was noted to have a small area of wound breakdown approximately 1cm at inferior aspect of wound. This was to be packed with Nugauze twice a day. Patient was recently seen by Dr. Tang in postop clinic 09/25 and was noted to have increased wound breakdown he was found to have breakdown of about 3cm at inferior aspect and also found to have a subcutaneous fluid pocketin the middle of her incision. At clinic, her wound was opened up from middle to inferior aspect and debrided along inferior wound. She was sent home with instructions to change dressings wet to dry BID. Patient presented to ED complaining of foul odor at dressing site. General surgery was consulted for wound evaluation and management. Wound was noted to need debridement and was having moderate amount of drainage. Patient was admitted for further wound care. HOSPITAL COURSE: Hospital Course Patient was admitted to general surgery service. On 09/30, patient was taken to OR for exisional wound debridement and wound vac placment. Patient tolerated the procedure well. Her postop course was uncomplicated. She remained afebrile with stable vital signs. The wound vac worked appropriately. On 10/03, wound vac dressing was changed and patient was deemed approprate for discharge home. Physical exam on day of discharge: GEN - no acute distress HEENT - normocephalic, atraumatic CV - hemodynamically stable, well perfused PULM - without signs of respiratory distress, normal work of breathing ABD - soft, nontender, nondistended, wound vac in place along vertical incision draining appropriately SKIN - without lesions NEURO - normal reactivity for age DIAGNOSTIC AND PROCEDURAL EVENTS: - 09/30/2017: Excisional wound debridement, wound vac placement DISCHARGE INFORMATION: DispositionHome Discharge Conditionstable (signs or symptoms of potential problems absent or manageable) Discharge Medicationsalbuterol 90 mcg/inh inhalation aerosol; 2 puff(s) inhaled 4 times a day, As Needed aspirin 325 mg oral tablet; 1 tab(s) orally once a day Basaglar KwikPen 100 units/mL subcutaneous solution; subcutaneous 2 times a day 15 units in am 20 units at bedtime buPROPion 150 mg/12 hours (SR) oral tablet, extended release; 1 tab(s) orally 2 times a day diazepam 5 mg oral tablet; 1 tab(s) orally once a day fenofibrate 200 mg oral capsule; 1 cap(s) orally once a day gabapentin 100 mg oral capsule; 1 cap(s) orally 3 times a day HumaLOG 100 units/mL injectable solution; unit(s) injectable three times daily: 15 am, 15 noon, 30 bedtime lisinopril 2.5 mg oral tablet; 1 tab(s) orally once a day metoprolol tartrate 25 mg oral tablet; 1 tab(s) orally 2 times a day niacin 500 mg oral tablet, extended release; 1 tab(s) orally once a day (at bedtime) [place] 7.5 mg-325 mg oral tablet; 1 tab(s) orally 3 times a day omeprazole 20 mg oral delayed release capsule; 1 cap(s) orally once a day Premarin 0.3 mg oral tablet; 1 tab(s) orally once a day promethazine 25 mg oral tablet; 1 tab(s) orally every 6 hours, As Needed raNITIdine 150 mg oral capsule; 1 cap(s) orally 2 times a day spironolactone 50 mg oral tablet; 1 tab(s) orally once a day tiZANidine 4 mg oral tablet; 1 tab(s) orally 2 times a day, As Needed topiramate 100 mg oral tablet; 1 tab(s) orally 2 times a day Pending ResultsNo Pending Results DISCHARGE INSTRUCTIONS: Diet: No Restrictions. Resume regular at home diet. Lifting: No lifting more than 10 for 40 days. Activity: move around as you are able and do not drive while taking narcotic pain medications. Wound or Incision Care: Reason to call: feels warm or hot to the touch, is red or dark pink, is tight or swollen and looks shiny, becomes more tender or sore to the touch, wound smells bad and wound is draining pus, bleeding or coming open. Bathing: Shower any time; keep wound or bandage dry. Avoid soaking your wound; do NOT take a tub bath. Instructed patient to call if: Temperature is above 101.5. Pain is not relieved by medications. You are throwing up or have diarrhea for more than 24 hours. Medication Instructions: Take Medication exactly as instructed. Do not take any medications that have not been ordered for This means do not take other people's medication, illegal drugs or substances, or even more aspirin than has been ordered. Recommended Follow Up Instructions: Follow Up Instructions: Follow up with: Cavatassi. moeller/on Oct 09 2017 2:45PM. - Address/Phone Number: [address] [facility] [phone]. 02:45pm. ATTESTATION: Attending Attestation: I saw the patient with the resident. I discussed the case with the resident and agree with the resident's findings and plan as documented in the resident's note. Electronic Signatures: Panfilo Arreola MD (Attending) (Signed 03-Oct-17 16:31) Authored: ATTESTATION Co-Signer: HOSPITALIZATION, DISCHARGE DIAGNOSIS, HOSPITAL COURSE, DIAGNOSTIC AND PROCEDURAL EVENTS,DISCHARGE INFORMATION, DISCHARGE INSTRUCTIONS, Recommended Follow Up Instructions Josh Severino MD (Resident) (Signed 03-Oct-17 10:56) Authored: HOSPITALIZATION, DISCHARGE DIAGNOSIS, HOSPITAL COURSE, DIAGNOSTIC AND PROCEDURAL EVENTS, DISCHARGE INFORMATION, DISCHARGE INSTRUCTIONS, Recommended Follow Up Instructions Last Updated: 03-Oct-17 16:31 by Panfilo Arreola MD (Attending) * Social Care Assessment Summary - Sanjuana Blair MD - 10/02/2017 12:00 AM EDT Patient Name: OSBALDO GRECO Date of : 1960 Progress Note Progress Note Anticipated Discharge Date 2017-10-03 00:00 Has Discharge Plan Changed? If Yes, Please Describe Change and Provide Details in Additional Comments Box Below. Answers: No Medicare Second Notice? Answers: Not Applicable Additional Comments Notes: Discussed this patient this am with Surgery team. They stated that patient will likely be medically ready for discharge home tomorrow. Her Home Wound Vac has been delivered to her room and I will update [facility] with pending discharge home tomorrow. Electronically signed by: Tiffanie Hays * Social Care Assessment Summary - Sanjuana Blair MD - 10/01/2017 12:00 AM EDT Patient Name: OSBALDO GRECO Date of : 1960 Progress Note Progress Note Anticipated Discharge Date 2017-10-01 00:00 Has Discharge Plan Changed? If Yes, Please Describe Change and Provide Details in Additional Comments Box Below. Answers: No Medicare Second Notice? Answers: Not Applicable Additional Comments Notes: I have spoken this am with Janine Lawrence with [facility] and she stated that this patient's home Wound Vac would be released for delivery today and should be delivered here by early afternoon. I have also contacted all of the providers that were sent referrals yesterday afternon and have received 7 denials prior to an acceptance from [facility] ph# . Patient and her surgery team have been aware this am. Discussed this patient with surgery team this am and they stated patient was not yet medically ready for discharge today and would remain inpatient until after next Wound Vac dressing change. I will update [facility] when discharge has been confirmed. Electronically signed by: Tiffanie Hays * Social Care Assessment Summary - Sanjuana Blair MD - 09/30/2017 12:00 AM EDT Patient Name: OSBALDO GRECO Date of : 1960 Progress Note Progress Note Anticipated Discharge Date 2017-10-01 00:00 Has Discharge Plan Changed? If Yes, Please Describe Change and Provide Details in Additional Comments Box Below. Answers: Yes Needs Home wound Vac and HH. Is the Patient Aware of the Change in Discharge Plan? Answers: Yes Orders sent to [facility] and all [facility] providers this afternoon. Medicare Second Notice? Answers: Not Applicable Additional Comments Notes: Contacted today by surgery resident that patient was going to OR today and will likely require a Home wound Vac and HH at discharge. Patient lives in [place], [place] with her . She stated she has never had HH in the past and she has no preference for HH provider. Her insurance is [employer]. Her PCP is Dr. Layton Garcia. I have submitted the order for Home Wound Vac to [facility] this afternoon and notified Dr. Way surgery resident that she will receive an e-mail from [facility] which is the e-script and she will need to sign and return. I have also made HH referral with all [facility] agancies this afternoon and will follow up with all of them Friday morning. Electronically signed by: Tiffaniedoroteo GonzalezSaúl * Op Note - Sanjuana Blair MD - 09/30/2017 12:00 AM EDT [place], [place] OPERATIVE REPORT Patient Name: TYRA GRECO [facility] Number: [id number] Date of : 1960 Date of Admission: 09/29/2017 Date of Procedure: 09/30/2017 Attending Physician: PANFILO ARREOLA MD Patient Location: [place] [address] A PREOPERATIVE DIAGNOSIS: Nonhealing wound of the abdominal wall. POSTOPERATIVE DIAGNOSIS: Nonhealing wound of the abdominal wall. PROCEDURE PERFORMED: Excisional debridement of abdominal wall wound and placement of wound VAC. PRIMARY SURGEON: Panfilo Arreola MD RESIDENT SURGEONS: 1. Vaibhav Jean-Baptiste MD 2. Lisset Way MD ANESTHESIA: General endotracheal anesthesia. INTRAOPERATIVE FINDINGS: 1. Abdominal wall wound with fibrinous exudate of the subcutaneous fat and fascia. 2. Final measurements of wound 22 x 8 x 7 cm. INDICATIONS FOR OPERATION: Ms. Tyra Greco is a 57-year-old female who underwent repair of a recurrent ventral incisional hernia in August of this year. The patient initially recovered well and was discharged home. However, she presented to clinic with concerns for wound inspection. The wound was opened and packed, however, the wound continued to progress. She presented to the hospital with foul-smelling drainage from the wound. She was found to have copious fibrinous exudate and necrotic tissue of her abdominal wall. Given these findings, she was counseled regarding the need for debridement. She was counseled regarding the risks, benefits, and alternatives of proceeding to the operating room and she was agreeable. The patient was taken to the operating room physician in the supine position on the operating table. General endotracheal anesthesia was initiated. SCDs were placed on the patient. Preoperative antibiotics were given. The patient was prepped and draped in the usual sterile fashion. A timeout was properly performed. The wound was infected and there was copious fibrinous exudate along the lining of the wound. This was sharply debrided with a combination of Metzenbaum scissors and a scalpel. We debrided subcutaneous fat, as well as some exudate along the fascia. Inspection of the fascia showed that it was grossly intact and there was no evidence of underlying abscess. We then copiously irrigated the wound and hemostasis was obtained with electrocautery. Once we were satisfied with our excisional sharp debridement, we then took measurements of the wound. It was 22 cm in length, 8 cm in width and 7 cm in depth. A wound VAC was then placed within the cavity and suction was applied. The wound VAC was found to have a good seal. After the procedure, the patient was awakened, extubated, and taken to PACU for recovery. All needle, lap and instrument counts were correct. Dr. Arreola was present for the entire case and scrubbed for all critical portions of this procedure. ESTIMATED BLOOD LOSS: 20 mL COMPLICATIONS: None. DRAINS: None. Edited and Electronically Signed By: PANFILO ARREOLA MD 10/02/2017 09:44 A PANFILO ARREOLA MD Attending Surgeon, SURGERY Dictated By: LISSET WAY MD 09/30/2017 09:[address] MD Dictating Provider, SURGERY DIK/wmx Dictated Date/Time: 09/30/2017 15:43 Information Technology Coordinator Date/Time: 09/30/2017 19:06 Document Number: [id number] Job Number: [id number] REFERRING PHYSICIAN: PRIMARY CARE PHYSICIAN: [place] [address] NON- REFERRING PHYSICIAN: DICTATED CC: Document is Signed NOTE: supplied by interface * Op Note - Panfilo Arreola MD - 09/30/2017 12:00 AM EDT Brief Operative Progress Note: PRE-OP DIAGNOSIS: nonhealing wound of abdominal wall. POST-OP DIAGNOSIS: Same. PRIMARY SURGEON: Dr. Panfilo Arreola. CARD LACER(S): Dr. Felicitas Jean-Baptiste, Dr. Lisset Way. ANESTHESIA: GA-ET. DESCRIPTION OF FINDINGS: 1. abdominal wall wound measuring 22 cm x 8 cm x 7 cm. SURGICAL PROCEDURES PERFORMED: excisional debridement of abdominal wall wound and placement of wound vac. Procedure: I was present for the entire procedure. Electronic Signatures: Lisset Way MD (Resident) (Signed 30-Sep-17 15:41) Authored: General Panfilo Arreola MD (Attending) (Signed 30-Sep-17 16:34) Authored: General Co-Signer: General Last Updated: 30-Sep-17 16:34 by Panfilo Arreola MD (Attending) * ED Notes - Provider, MD Sanjuana - 09/29/2017 12:00 AM EDT Triage Presentation: Presentation Date/Time: * ED Arrival Date & Time:29-Sep-2017 11:40 Triage Initial: * Triage Time:29-Sep-2017 11:40 * Chief Complaintwound check, status post hernia repair * Mode of Arrivalwalked * Transferred From :N/A Chief Complaint Information: * History of Present IllnessPatient here for a wound check. Status wound dehiscence post hernia surgery. Primary Care Physician (PCP): * PCP contacted? No. Home Medications: MedicationInstructionsSubmitted By erythromycin 250 mg oral tablet1 tab(s) orally 3 times a dayBladimir Portillo MD acetaminophen 325 mg oral tablet2 tab(s) orally every 4 hours, As needed, Fever > 101.5F (38.6C)or Pain, use first. May alternate with NSAIDS if available. Bladimir Portillo MD spironolactone 50 mg oral tablet1 tab(s) orally once a daySMatilde odell 100 units/mL subcutaneous solutionsubcutaneous 2 times a day 15 units in am 20 units at bedtimeAlisa Solomon RN aspirin 325 mg oral tablet1 tab(s) orally once a dayJuanito PETTY, Alisa J buPROPion 150 mg/12 hours (SR) oral tablet, extended release1 tab(s) orally 2 times a Alisa Dooley RN fenofibrate 200 mg oral capsule1 cap(s) orally once a Alisa Dooley RN HumaLOG 100 units/mL injectable solutionunit(s) injectable three times daily: 15 am, 15 noon, 30 bedtimeAlisa Solomon RN lisinopril 2.5 mg oral tablet1 tab(s) orally once a Alisa Dooley RN Premarin 0.3 mg oral tablet1 tab(s) orally once a Alisa Dooley RN raNITIdine 150 mg oral capsule1 cap(s) orally 2 times a Alisa Dooley RN topiramate 100 mg oral tablet1 tab(s) orally 2 times a Alisa Dooley RN niacin 500 mg oral tablet1 tab(s) orally once a day (at bedtime)Tha Luz tiZANidine 4 mg oral tablet1 tab(s) orally 1 to 2 times a day, As NeededWorrTha sen albuterol 90 mcg/inh inhalation aerosol2 puff(s) inhaled 4 times a day, As NeededMatilde Severino diazepam 5 mg oral tablet1 tab(s) orally once a dayMarycarmen Patel gabapentin 100 mg oral capsule1 cap(s) orally 3 times a dayMarycarmen Patel metoprolol tartrate 25 mg oral tablet1 tab(s) orally 2 times a dayMarycarmen Patel promethazine 25 mg oral tablet1 tab(s) orally every 6 hours, As NeededMarycarmen Patel Vital Signs: Vital Sign Assessment: * Aojmgits097 mm Hg * Gztrwoipz64 mm Hg * BP Noninvasive Mean83 mm Hg * Temperature F97.5 degrees F * Temperature Celcius 36.38 degrees C * Temperatureaxillary * Heart Rate72 bpm * Respiratory Rate19 breaths per minute * Pulse Oximetry SpO2 (%)100 percent hemoglobin [place] Com[place] Scale: [place] Coma Scale: * GCS - Best Eye Response4= spontaneous * GCS - Best Motor Response6= obeys commands * GCS - Best Verbal Response5= oriented * [place] Scale15 Triage Height/Weight: * Height in feet5 feet * Height in inches0 inch * Height in cm152.4 cm * Initial Weight (lbs)158.7 lb * Initial Weight (kg)72 kg * BMI31 Primary Evaluation: Additional Triage Assessment: * Pain Rating (0-10):10 Allergies: Allergen/ProductAllergen TypeReactionStatusDescription * AxidDrugOtherActiveseizures * CompazineDrugOtherActiveseizures * ToradolDrugOtherActiveseizures * TramadolDrugOtherActiveseizures * Darvocet-N 100DrugOtherActiveseizures * AdvilDrugOtherActiveseizures * AllegraDrugOtherActiveseizures * ReglanDrugOtherActiveseizures * AugmentinDrugRashActive * ZofranDrugRashActive General Information: Past 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: * Health Historyasthma- diabetes- HTN- sleep apnea General Medication Information: * Current Medications:see medication reconcilliation sheet Communicable Diseases/ Immunizations: * negative. * yes. Travel Information: * Have you traveled outside the [place] in the past 60 days?no General Information: * Language Assistance Needed?no Acuity: * Acuity:3 Triage Completion Time: * Triage Completion [id number] 11:45 Electronic Signatures: Val Crowley RN (Nurse) (Signed 29-Sep-17 11:45) Authored: Triage Presentation, Primary Evaluation, General Information Last Updated: 29-Sep-17 11:45 by Val Crowley RN (Nurse) * ED Notes - Sanjuana Blair MD - 09/29/2017 12:00 AM EDT Registration:: ED Presentation: * ED Arrival Date & Time:29-Sep-2017 11:33 * Reason for Visit:post op comp Electronic Signatures: Gloria Gary (Patient Registration) (Signed 29-Sep-17 11:42) Authored: Registration: Last Updated: 29-Sep-17 11:42 by Gloria Gary (Patient Registration) * ED Notes - Ronel Flores - 09/29/2017 12:00 AM EDT Evaluation: - CHIEF COMPLAINT: wound check HISTORY OF PRESENT ILLNESS: TYRA GRECO is a 57y/o female with a h/o TIA, DM, and HTN presenting with a wound check. Pt underwent Ventral incisional hernia repair with placement of Myocutaneous flap creation to allow for tension-free repair and Removal of prior mesh implant on 08/26/17. Pt presents today with worsened surgical area abdominal pain, increased drainage, and worsened odor for the past few days. Pt was seen in this ED with same complaint on 09/11/17 and admitted for 3 days. Pt prescribed antibiotic at discharge but d/t financial reasons pt was unable to fill prescription. PAST MEDICAL HISTORY: DM, HTN, neuropathy, asthma PAST SURGICAL HISTORY: Bilateral knees, bilateral carpal tunnel repairs, hiatal hernia repair, hysterectomy, cholecystectomy, back surgery ALLERGIES: Advil->Other Sharmaine->Other Augmentin->Rash Axid->Other Compazine->Other Toradol->Other Tramadol->Other Darvocet-N 100->Other Zofran->Rash Reglan->Other SOCIAL HISTORY: Denies current tobacco, alcohol, or recreational drug use FAMILY MEDICAL HISTORY: Reviewed with patient and not pertinent REVIEW OF SYSTEMS: A 14 point review of systems was reviewed and is negative unless otherwise specified in the HPI. VITALS: VITALS (last 24h) [retrieved for TYRA GRECO at 29 Sep 2017 12:11]: Tc: 36.4 Tmax: 36.4 @ Sep 11:40 Tf: 97.5 Tmax: 97.5 @ Sep 11:40 HR: 72 (72 - 72) BP: 103/73 (103/73 - 103/73) RR: 19 (19 - 19) SpO2: 100% (100% - 100%) PHYSICAL EXAM: GENERAL: Well-developed, well-nourished, no acute distress, sitting upright in bed, answering questions in full sentences HEENT: Normocephalic, atraumatic. PERRL. EOMI. Mucous membranes moist. NECK: Supple, no significant anterior lymphadenopathy, no tracheal deviation HEART: Regular rhythm, no murmurs, gallops, or rubs appreciated LUNGS: Clear bilaterally with normal effort and good air movement. No wheezes, rales, or rhonchi ABDOMEN: Large 20cm surgical laceration to midline abdomen, malodorous, with packing gauze in place. Soft, nondistended. No surrounding erythema. +Bowel sounds EXTREMITIES: Moving all four extremities with no acute deformity or joint effusions. No edema. SKIN: Warm, dry, well-perfused, no rashes PSYCH: Appropriate mood and affect. Behavior appears normal. NEURO: Grossly non focal. Alert, awake, and oriented to person, place, and time. Cranial nerves 2-12 intact. LABS/IMAGING: elevated lactate <3, CBC WNL MEDICAL DECISION MAKING: In summary this 57 year old female with recent ventral hernia repair presents with concern for wound infections, given the appearance and foul smell. Labs reviewed and discussed with patient. General surgery consulted and evaluated pt at bedside. Plan for admission. IMPRESSION: Post op wound infection DISPOSITION: admission Date/Time: 29 September 2017, @1212 Scribe Attestation Statement: This note was dictated to me, Reed Montez, acting as scribe for Dr. Ronel Flores Physician Attestation Statement: The documentation was recorded by Reed Montez acting as scribe in my presence at the time of the encounter and accurately reflects the service I personally performed and the decisions made by me. Electronic Signatures: Ronel Flores MD (Attending) (Signed 30-Sep-17 20:14) Authored: EVALUATION Co-Signer: Linwood Guadarrama (Scribe) (Signed 29-Sep-17 12:25) Authored: EVALUATION Last Updated: 30-Sep-17 20:14 by Ronel Flores MD (Attending) * Consults - Panfilo Arreola MD - 09/29/2017 12:00 AM EDT Consultation Service: Service/ Team: SSG - Surgery / [facility]. Requesting Attending Physician: Ronel Flores MD(Attending): Attending, Emergency Medicine, Medicine Consult Information: * Consult Requested Date/[id number] 12:45 * Consult Completed Date/[id number] 12:45 Chief Complaint: [facility] Reason for ConsultSurgical wound evaluation Consult Note: - History and Physical: 29 September 2017 Referring Physician : Ronel Flores cc : Abdominal wound evaluation HPI: Tyra Greco is a 57 yo female who is s/p ventral hernia repair 08/26 and discharged 09/05. Patientwas subsequently admitted from 09/11 to 09/14 for abdominal pain and nausea and vomiting. During that admission, patient was noted to have a small area of wound breakdown approximately 1cm at inferior aspect of wound. This was to be packed with Nugauze twice a day. Patient was recently seen in postop clinic with increase wound breakdown. She was found to have breakdown of about 3cm at inferior aspect and also found to have a subcutaneous fluid pocket in the middle of her incision. At clinic, her wound was opened up from middle to inferior aspect and debrided along inferior wound. She was sent home with instructions to change dressings wet to dry BID. Today patient presents to ED complaining offoul odor at dressing site. General surgery was consulted for wound evaluation and management. Today she is endorsing subjective fevers and chills. She is afebrile in ED. She endorses nausea and vomiting over past day. She reports she is still having regular bowel movements and denies any dysuria. Medications:[retrieved for TYRA GRECO at 29 Sep 2017 12:45]: erythromycin 250 mg oral tablet 1 tab(s) orally 3 times a day Premarin 0.3 mg oral tablet 1 tab(s) orally once a day lisinopril 2.5 mg oral tablet 1 tab(s) orally once a day metoprolol tartrate 25 mg oral tablet 1 tab(s) orally 2 times a day spironolactone 50 mg oral tablet 1 tab(s) orally once a day albuterol 90 mcg/inh inhalation aerosol 2 puff(s) inhaled 4 times a day, As Needed promethazine 25 mg oral tablet 1 tab(s) orally every 6 hours, As Needed acetaminophen 325 mg oral tablet 2 tab(s) orally every 4 hours, As needed, Fever > 101.5F (38.6C) or Pain; use first. alternate with NSAIDS if available. aspirin 325 mg oral tablet 1 tab(s) orally once a day buPROPion 150 mg/12 hours (SR) oral tablet, extended release 1 tab(s) orally 2 times a day diazepam 5 mg oral tablet 1 tab(s) orally once a day gabapentin 100 mg oral capsule 1 cap(s) orally 3 times a day tiZANidine 4 mg oral tablet 1 tab(s) orally 1 to 2 times a day, As Needed topiramate 100 mg oral tablet 1 tab(s) orally 2 times a day Basaglar KwikPen 100 units/mL subcutaneous solution subcutaneous 2 times a day 15 units in am 20 units at bedtime fenofibrate 200 mg oral capsule 1 cap(s) orally once a day HumaLOG 100 units/mL injectable solution unit(s) injectable three times daily: 15 am, 15 noon, 30 bedtime niacin 500 mg oral tablet 1 tab(s) orally once a day (at bedtime) raNITIdine 150 mg oral capsule 1 cap(s) orally 2 times a day Allergies: Advil->Other Sharmaine->Other Augmentin->Rash Axid->Other Compazine->Other Toradol->Other Tramadol->Other Darvocet-N 100->Other Zofran->Rash Reglan->Other Past Surgical History: Bilateral knees, bilateral carpal tunnel repairs, hiatal hernia repair, hysterectomy, CCY, back surgery Past 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: DM, HTN, neuropathy, asthma Social History: Denies smoking history Denies ETOH use Denies illicit drug use Physical Exam: GEN - no acute distress HEENT - normocephalic, atraumatic CV - hemodynamically stable, well perfused PULM - without signs of respiratory distress, normal work of breathing, on room air ABD - soft, obese, vertical incision > 10cm with plaques of dried fat/fibrious tissue on side wall with remaining pink and healthy appearing, Inferior aspect with white fibrous material at deep aspect at fascia, foul smell in wound, NEURO - appears anxious Vital Signs: VITALS (last 24h) [retrieved for TYRA GRECO at 29 Sep 2017 12:45]: Tc: 36.4 Tmax: 36.4 @ Sep 11:40 Tf: 97.5 Tmax: 97.5 @ Sep 11:40 HR: 72 (72 - 72) BP: 103/73 (103/73 - 103/73) RR: 19 (19 - 19) SpO2: 100% (100% - 100%) Labs:No lab data resulted in last 48 hours Assessment/Plan: Tyra Greco is a 57 yo female who is s/p ventral hernia repair 08/26 with worsening abdominal wound appearance. General surgery consulted for wound evaluation and management. Abdominal wound - Patient currently afebrile with normal WBC count. - Wound with foul smell and poor appearance. - Will admit to general surgery. - Patient likely to OR tomorrow for wound debridement and wound vac placement. FEN - D5-LR @ 100 - patient likely with mild dehydration due to nausea, vomiting, poor PO intake. Will continue fluids for rehydration - Reg diet. NPO at midnight PPx: PLOV Dispo: Floor Attestation: I saw and evaluated the patient with the resident/fellow. I discussed the case with the resident/fellow and agree with the findings and plan as documented. Electronic Signatures: Panfilo Arreola MD (Attending) (Signed 30-Sep-17 08:29) Authored: EVALUATION, CRITICAL CARE CHARGING STATEMENT/ATTENDING ATTESTATION Co-Signer: CONSULTATION SERVICE, EVALUATION Josh Severino MD (Resident) (Signed 29-Sep-17 23:27) Authored: CONSULTATION SERVICE, EVALUATION Last Updated: 30-Sep-17 08:29 by Panfilo Arreola MD (Attending) documented in this encounter Plan of Treatment Not on file documented as of this encounter Procedures Procedure Name Priority Date/Time Associated Diagnosis Comments GLUCOSE POINT OF CARE DC Routine 10/03/2017 11:16 AM EDT GLUCOSE POINT OF CARE DC Routine 10/03/2017 7:52 AM EDT GLUCOSE POINT OF CARE DC Routine 10/02/2017 8:51 PM EDT GLUCOSE POINT OF CARE DC Routine 10/02/2017 4:22 PM EDT GLUCOSE POINT OF CARE DC Routine 10/02/2017 3:54 PM EDT GLUCOSE POINT OF CARE DC Routine 10/02/2017 11:21 AM EDT GLUCOSE POINT OF CARE DC Routine 10/02/2017 7:52 AM EDT GLUCOSE POINT OF CARE DC Routine 10/01/2017 8:10 PM EDT GLUCOSE POINT OF CARE DC Routine 10/01/2017 4:43 PM EDT GLUCOSE POINT OF CARE DC Routine 10/01/2017 11:32 AM EDT GLUCOSE POINT OF CARE DC Routine 10/01/2017 8:01 AM EDT GLUCOSE POINT OF CARE DC Routine 10/01/2017 3:38 AM EDT GLUCOSE POINT OF CARE DC Routine 09/30/2017 8:28 PM EDT GLUCOSE POINT OF CARE DC Routine 09/30/2017 4:30 PM EDT GLUCOSE POINT OF CARE DC Routine 09/30/2017 1:23 PM EDT GLUCOSE POINT OF CARE DC Routine 09/30/2017 11:55 AM EDT GLUCOSE POINT OF CARE DC Routine 09/30/2017 10:52 AM EDT CBC W/O DIFFERENTIAL Routine 09/30/2017 8:26 AM EDT BASIC METABOLIC PANEL, PLASMA Routine 09/30/2017 8:26 AM EDT GLUCOSE POINT OF CARE DC Routine 09/30/2017 7:58 AM EDT GLUCOSE POINT OF CARE DC Routine 09/30/2017 3:33 AM EDT GLUCOSE POINT OF CARE DC Routine 09/29/2017 8:29 PM EDT GLUCOSE POINT OF CARE DC Routine 09/29/2017 5:55 PM EDT URINALYSIS, MANUAL WITH SCOPE Routine 09/29/2017 2:40 PM EDT URINALYSIS WITH REFLEX MICROSCOPIC STAT 09/29/2017 2:40 PM EDT BLOOD CULTURE (AEROBIC/ANAEROBIC SET) Routine 09/29/2017 12:45 PM EDT LACTATE, VENOUS STAT 09/29/2017 12:36 PM EDT CBC W/O DIFFERENTIAL STAT 09/29/2017 12:36 PM EDT COMPREHENSIVE METABOLIC PANEL, PLASMA STAT 09/29/2017 12:36 PM EDT BLOOD CULTURE (AEROBIC/ANAEROBIC SET) Routine 09/29/2017 12:30 PM EDT documented in this encounter Results * (ABNORMAL) Glucose Point of Care. (10/03/2017 11:16 AM EDT) [facility] POCT Glucose 174(H) 74 - 99 mg/dL SUNQUEST Comment:Whole Blood 10/03/2017 11:1 6 AM EDT 10/03/2017 11:17 AM EDT Historical Provider MD LAB BLOOD ORDERABLES Rula l Result Performing Organization Address [facility] Co de Phone Number SUNQUEST * (ABNORMAL) Glucose Point of Care. (10/03/2017 7:52 AM EDT) [facility] POCT Glucose 173(H) 74 - 99 mg/dL SUNQUEST Comment:Whole Blood 10/03/2017 7:52 AM EDT 10/03/2017 11:01 AM EDT Historical Provider LAB BLOOD ORDERABLES Rula l Result Performing Organization Address [facility]/ZIP Co de Phone Number SUNQUEST * (ABNORMAL) Glucose Point of Care. (10/02/2017 8:51 PM EDT) [facility] POCT Glucose 167(H) 74 - 99 mg/dL SUNQUEST Comment:Whole Blood 10/02/2017 8:51 PM EDT 10/02/2017 8:52 PM EDT Historical Provider MD LAB BLOOD ORDERABLES Rula l Result Performing Organization Address City/State/[facility] Co de Phone Number SUNQUEST * (ABNORMAL) Glucose Point of Care. (10/02/2017 4:22 PM EDT) [facility] POCT Glucose 161(H) 74 - 99 mg/dL SUNQUEST Comment:Whole Blood 10/02/2017 4:22 PM EDT 10/02/2017 4:21 PM EDT Historical Provider MD LAB BLOOD ORDERABLES Rula l Result Performing Organization Address [facility] Co de Phone Number SUNQUEST * (ABNORMAL) Glucose Point of Care. (10/02/2017 3:54 PM EDT) [facility] POCT Glucose 164(H) 74 - 99 mg/dL SUNQUEST Comment:Whole Blood 10/02/2017 3:54 PM EDT 10/02/2017 3:56 PM EDT Historical Provider LAB BLOOD ORDERABLES Rula l Result Performing Organization Address [facility] Co de Phone Number SUNQUEST * (ABNORMAL) Glucose Point of Care. (10/02/2017 11:21 AM EDT) [facility] POCT Glucose 171(H) 74 - 99 mg/dL SUNQUEST Comment:Whole Blood 10/02/2017 11:2 1 AM EDT 10/02/2017 11:22 AM EDT Historical Provider MD LAB BLOOD ORDERABLES Urla l Result Performing Organization Address City/[facility]/ZIP Co de Phone Number SUNQUEST * (ABNORMAL) Glucose Point of Care. (10/02/2017 7:52 AM EDT) [facility] POCT Glucose 156(H) 74 - 99 mg/dL SUNQUEST Comment:Whole Blood 10/02/2017 7:52 AM EDT 10/02/2017 7:51 AM EDT Historical Provider MD LAB BLOOD ORDERABLES Rula l Result SUNQUEST * (ABNORMAL) Glucose Point of Care. (10/01/2017 8:10 PM EDT) [facility] POCT Glucose 201(H) 74 - 99 mg/dL SUNQUEST Comment:Whole Blood 10/01/2017 8:10 PM EDT 10/01/2017 8:11 PM EDT Historical Provider MD LAB BLOOD ORDERABLES Rula l Result Performing Organization Address City/[facility] Co de Phone Number SUNQUEST * (ABNORMAL) Glucose Point of Care. (10/01/2017 4:43 PM EDT) [facility] POCT Glucose 183(H) 74 - 99 mg/dL SUNQUEST Comment:Whole Blood 10/01/2017 4:43 PM EDT 10/01/2017 4:46 PM EDT Historical Provider LAB BLOOD ORDERABLES Rula l Result Performing Organization Address City/[facility] Co de Phone Number SUNQUEST * (ABNORMAL) Glucose Point of Care. (10/01/2017 11:32 AM EDT) [facility] POCT Glucose 183(H) 74 - 99 mg/dL SUNQUEST Comment:Whole Blood 10/01/2017 11:3 2 AM EDT 10/01/2017 11:36 AM EDT Historical Provider MD LAB BLOOD ORDERABLES Rula l Result SUNQUEST * (ABNORMAL) Glucose Point of Care. (10/01/2017 8:01 AM EDT) [facility] POCT Glucose 145(H) 74 - 99 mg/dL SUNQUEST Comment:Whole Blood 10/01/2017 8:01 AM EDT 10/01/2017 8:02 AM EDT Historical Provider MD LAB BLOOD ORDERABLES Rula l Result SUNQUEST * (ABNORMAL) Glucose Point of Care. (10/01/2017 3:38 AM EDT) [facility] POCT Glucose 189(H) 74 - 99 mg/dL SUNQUEST Comment:Whole Blood 10/01/2017 3:38 AM EDT 10/01/2017 3:36 AM EDT Historical Provider MD LAB BLOOD ORDERABLES Rula l Result Performing Organization Address City/[facility]/ZIP Co de Phone Number SUNQUEST * (ABNORMAL) Glucose Point of Care. (09/30/2017 8:28 PM EDT[facility]) 74 - 99 mg/dL SUNQUEST Comment:Whole Blood 09/30/2017 8:28 PM EDT 09/30/2017 8:26 PM EDT Historical Provider LAB BLOOD ORDERABLES Rula l Result Performing Organization Address City/[facility]/ZIP Co de Phone Number SUNQUEST * (ABNORMAL) Glucose Point of Care. (09/30/2017 4:30 PM EDT) [facility] POCT Glucose 204(H) 74 - 99 mg/dL SUNQUEST Comment:Whole Blood 09/30/2017 4:30 PM EDT 09/30/2017 4:31 PM EDT Historical Provider MD LAB BLOOD ORDERABLES Rula l Result SUNQUEST * (ABNORMAL) Glucose Point of Care. (09/30/2017 1:23 PM EDT) [facility] POCT Glucose 156(H) 74 - 99 mg/dL SUNQUEST Comment:Whole Blood 09/30/2017 1:23 PM EDT 09/30/2017 1:21 PM EDT Historical Provider MD LAB BLOOD ORDERABLES Rula l Result Performing Organization Address [facility] Co de Phone Number SUNQUEST * (ABNORMAL) Glucose Point of Care. (09/30/2017 11:55 AM EDT) [facility] POCT Glucose 180(H) 74 - 99 mg/dL SUNQUEST Comment:Whole Blood 09/30/2017 11:5 5 AM EDT 09/30/2017 11:56 AM EDT Historical Provider MD LAB BLOOD ORDERABLES Rula l Result Performing Organization Address [facility] Co de Phone Number SUNQUEST * (ABNORMAL) Glucose Point of Care. (09/30/2017 10:52 AM EDT) [facility] POCT Glucose 200(H) 74 - 99 mg/dL SUNQUEST Comment:Whole Blood 09/30/2017 10:5 2 AM EDT 09/30/2017 10:51 AM EDT Historical Provider LAB BLOOD ORDERABLES Rula l Result Performing Organization Address [facility] Co de Phone Number SUNQUEST * (ABNORMAL) Basic Metabolic Panel, Plasma (09/30/2017 8:26 AM EDT) [facility] Glucose, Plasma 206(H) 74 - 99 mg/dL SUNQUEST BUN, Plasma 9 7 - 21 mg/dL SUNQUEST Creatinine, Plasma 1.01 0.60 - 1.10 mg/dL SUNQUEST BUN/Creatinine Ratio 9 8 - 20 SUNQUEST Sodium, Plasma 140 136 - 145 mmol/L SUNQUEST Potassium, Plasma 3.9 3.7 - 4.8 mmol/L SUNQUEST Chloride, Plasma 105 101 - 108 mmol/L SUNQUEST CO2, Plasma 20(L) 22 - 29 mmol/L SUNQUEST Anion Gap 15 6 - 16 mmol/L SUNQUEST Calcium, Plasma 8.6(L) 8.9 - 10.2 mg/dL SUNQUEST eGFR 56(L) >60 SEE NOTE SUNQUEST eGFR, if AFR/AM >60 >60 SEE NOTE SUNQUEST Comment: eGFR = estimated GFR, eGFR units = mL/min/1.73 sq meters Chronic Kidney Disease is considered if eGFR <60 mL/min/1.73 sq meters. Kidney failure is considered if <15 mL/min/1.73 sq meters. eGFR assumes steady state plasma creatinine concentration, not applicable if renal function is rapidly changing or patient is on dialysis. 09/30/2017 8:26 AM EDT 09/30/2017 8:33 AM EDT us Historical Provider MD LAB BLOOD ORDERABLES Rula l Result Performing Organization Address [facility] de Phone Number SUNQUEST * (ABNORMAL) CBC W/O Differential (09/30/2017 8:26 AM EDT) WBC Count 8.4 3.7 - 10.3 k/uL SUNQUEST RBC Count 3.11(L) 3.9 - 5.2 M/uL SUNQUEST HGB 9.1(L) 11.2 - 15.7 g/dL SUNQUEST HCT 28.1(L) 34 - 45 % SUNQUEST Platelet Count 431(H) 155 - 369 k/uL SUNQUEST MCV 90 79 - 98 fL SUNQUEST MCH 29.3 26 - 32 pg SUNQUEST MCHC 32.4 30.7 - 35.5 g/dL SUNQUEST RDW 13.5 12.4 - 14.9 % SUNQUEST MPV 9.4 8.8 - 12.5 fL SUNQUEST NRBC COUNT 0 0 % SUNQUEST 09/30/2017 8:26 AM EDT 09/30/2017 8:33 AM EDT us Historical Provider LAB BLOOD ORDERABLES Rula l Result Performing Organization Address [facility] Co de Phone Number SUNQUEST * (ABNORMAL) Glucose Point of Care. (09/30/2017 7:58 AM EDT) POCT Glucose 204(H) 74 - 99 mg/dL SUNQUEST Comment:Whole Blood 09/30/2017 7:58 AM EDT 09/30/2017 10:46 AM EDT Historical Provider MD LAB BLOOD ORDERABLES Rula l Result Performing Organization Address City/[facility] Co de Phone Number SUNQUEST * (ABNORMAL) Glucose Point of Care. (09/30/2017 3:33 AM EDT) POCT Glucose 199(H) 74 - 99 mg/dL SUNQUEST Comment:Whole Blood 09/30/2017 3:33 AM EDT 09/30/2017 3:31 AM EDT Historical Provider MD LAB BLOOD ORDERABLES Rula l Result Performing Organization Address [facility] de Phone Number SUNQUEST * (ABNORMAL) Glucose Point of Care. (09/29/2017 8:29 PM EDT) POCT Glucose 233(H) 74 - 99 mg/dL SUNQUEST Comment:Whole Blood 09/29/2017 8:29 PM EDT 09/29/2017 8:26 PM EDT Historical Provider MD LAB BLOOD ORDERABLES Rula l Result Performing Organization Address [facility] de Phone Number SUNQUEST * (ABNORMAL) Glucose Point of Care. (09/29/2017 5:55 PM EDT) POCT Glucose 112(H) 74 - 99 mg/dL SUNQUEST Comment:Whole Blood 09/29/2017 5:55 PM EDT 09/29/2017 7:01 PM EDT Historical Provider MD LAB BLOOD ORDERABLES Rula l Result Performing Organization Address City/[facility]/ZIP Co de Phone Number SUNQUEST * Urinalysis, manual with scope (09/29/2017 2:40 PM EDT) WBC, Urine 6-10 0 - 5 /HPF SUNQUEST RBC, Urine 0-3 0 - 3 /HPF SUNQUEST Squamous Epithelial 11-15 0 - 5 /HPF SUNQUEST Amorphous Urate Crystals CALCIUM OXALATE CRYSTALS PRESENT. Present SUNQUEST Bacteria, Urine 3+ /HPF SUNQUEST 09/29/2017 2:40 PM EDT 09/29/2017 2:43 PM EDT Ronel Flores MD LAB URINE ORDERABLES Final Res ult Performing Organization Address [facility] Co de Phone Number SUNQUEST * (ABNORMAL) Urinalysis with reflex microscopic (09/29/2017 2:40 PM EDT) Color, Urine DARK YELLOW SUNQUEST Clarity, Urine SLIGHTLY CLOUDY SUNQUEST Spec [place], Urine 1.025 1.001 - 1.030 SUNQUEST pH, Urine 5.5 4.5 - 8.0 SUNQUEST Protein, Urine TRACE(A) NEG mg/dL SUNQUEST Glucose, Urine NEGATIVE NEG mg/dL SUNQUEST Ketones, Urine NEGATIVE NEG mg/dL SUNQUEST Blood, Urine NEGATIVE NEG SUNQUEST Bilirubin, Urine SMALL(A) NEG SUNQUEST Urobilinogen, Urine > OR = 1.0 0.2 - 1.0 EU/dL SUNQUEST Leukocytes, Urine TRACE(A) NEG SUNQUEST Nitrite, Urine NEGATIVE NEG SUNQUEST 09/29/2017 2:40 PM EDT 09/29/2017 2:43 PM EDT Ronel Flores MD LAB URINE ORDERABLES Final Res ult Performing Organization Address [facility]/ZIP Co de Phone Number SUNQUEST * Blood Culture (Aerobic/Anaerobet Set) (09/29/2017 12:45 PM EDT) 09/29/2017 12:4 5 PM EDT 09/29/2017 4:26 PM EDT Narrative SUNQUEST - 08/02/2020 6:33 AM EST SQ ACC. NUMBER ?[id number] SPECIMEN DESCRIPTION: ?PERIPHERAL BLOOD LEFT HAND SPECIAL REQUESTS: ?LOW BLOOD VOLUME SUBMITTED, RESULTS MAY BE ?COMPROMISED CULTURE: ? NO GROWTH DAY 5. REPORT STATUS: ? FINAL 10/05/2017 us Ronel Flores MD LAB MICROBIOLOGY - GENERAL ORD ERABLES Final Result Performing Organization Address [facility] de Phone Number SUNQUEST * (ABNORMAL) Lactate, venous (09/29/2017 12:36 PM EDT) Lactate, Venous 3.9(H) 0.5 - 2.2 mmol/L SUNQUEST 09/29/2017 12:3 6 PM EDT 09/29/2017 12:46 PM EDT us Ronel Flores MD LAB BLOOD ORDERABLES Final Res ult Performing Organization Address [facility] de Phone Number SUNQUEST * (ABNORMAL) Comprehensive Metabolic Panel, Plasma (09/29/2017 12:36 PM EDT) Glucose, Plasma 131(H) 74 - 99 mg/dL SUNQUEST BUN, Plasma 13 7 - 21 mg/dL SUNQUEST Creatinine, Plasma 1.27(H) 0.60 - 1.10 mg/dL SUNQUEST BUN/Creatinine Ratio 10 8 - 20 SUNQUEST Sodium, Plasma 139 136 - 145 mmol/L SUNQUEST Potassium, Plasma 4.6 3.7 - 4.8 mmol/L SUNQUEST Chloride, Plasma 102 101 - 108 mmol/L SUNQUEST CO2, Plasma 19(L) 22 - 29 mmol/L SUNQUEST Anion Gap 18(H) 6 - 16 mmol/L SUNQUEST Calcium, Plasma 8.8(L) 8.9 - 10.2 mg/dL SUNQUEST AST, Plasma 33(H) 11 - 32 U/L SUNQUEST Comment:Hemolyzed, result ma y be falsely increased. ALT, Plasma 16 8 - 33 U/L SUNQUEST Alkaline Phosphatase, Plasma 87 46 - 142 U/L SUNQUEST Total Bilirubin, Plasma 0.3 0.2 - 1.1 mg/dL SUNQUEST Total Protein 7.6 6.3 - 7.9 g/dL SUNQUEST Albumin, Plasma 2.7(L) 3.3 - 4.6 g/dL SUNQUEST eGFR 43(L) >60 SEE NOTE SUNQUEST eGFR, if AFR/AM 52(L) >60 SEE NOTE SUNQUEST Comment: eGFR = estimated GFR, eGFR units = mL/min/1.73 sq meters Chronic Kidney Disease is considered if eGFR <60 mL/min/1.73 sq meters. Kidney failure is considered if <15 mL/min/1.73 sq meters. eGFR assumes steady state plasma creatinine concentration, not applicable if renal function is rapidly changing or patient is on dialysis. 09/29/2017 12:3 6 PM EDT 09/29/2017 12:51 PM EDT us Ronel Flores MD LAB BLOOD ORDERABLES Final Res ult Performing Organization Address City/[facility] Co de Phone Number SUNQUEST * (ABNORMAL) CBC W/O Differential (09/29/2017 12:36 PM EDT) WBC Count 7.8 3.7 - 10.3 k/uL SUNQUEST RBC Count 3.30(L) 3.9 - 5.2 M/uL SUNQUEST HGB 9.7(L) 11.2 - 15.7 g/dL SUNQUEST HCT 31.0(L) 34 - 45 % SUNQUEST Platelet Count 261 155 - 369 k/uL SUNQUEST MCV 94 79 - 98 fL SUNQUEST MCH 29.4 26 - 32 pg SUNQUEST MCHC 31.3 30.7 - 35.5 g/dL SUNQUEST RDW 13.6 12.4 - 14.9 % SUNQUEST MPV 10.6 8.8 - 12.5 fL SUNQUEST NRBC COUNT 0 0 % SUNQUEST 09/29/2017 12:3 6 PM EDT 09/29/2017 12:51 PM EDT us Ronel Flores MD LAB BLOOD ORDERABLES Final Res ult Performing Organization Address City/[facility]/ZIP Co de Phone Number SUNQUEST * Blood Culture (Aerobic/Anaerobet Set) (09/29/2017 12:30 PM EDT) 09/29/2017 12:3 0 PM EDT 09/29/2017 4:26 PM EDT Narrative JOSE - 08/02/2020 6:33 AM EST SQ ACC. NUMBER ?[id number] SPECIMEN DESCRIPTION: ?PERIPHERAL BLOOD RIGHT AC SPECIAL REQUESTS: ?LOW BLOOD VOLUME SUBMITTED, RESULTS MAY BE ?COMPROMISED CULTURE: ? NO GROWTH DAY 5. REPORT STATUS: ? FINAL 10/05/2017 Ronel Flores MD LAB MICROBIOLOGY - GENERAL ORD ERABLES Final Result JOSE documented in this encounter Visit Diagnoses Diagnosis Infection following procedure documented in this encounter
--- OUTSIDE RECORDS SUMMARY | 2024-06-22 10:19 | XMS_ITS | Encounter Summary ---
Author Organization [facility] Address [address] [id number] Care Team Providers Care Lye Boiler Name Role Phone Unavailable Primary Care Provider Unavailabl e Encounter Details Date Type Department Care Team (Latest Contact Info) Description 09/11/2017 4:20 PM EST - 09/14/2017 5:15 PM EDT Hospital Encounter [facility] [address] [place] [address] Daniel Tang MD [address] [address] Vomiting following gastrointestinal surgery Social History Tobacco Use Types Packs/Day Years Used Date Smoking Tobacco: Never Assessed Comments Unknown Sex and Gender Information Value Date Recorded Sex Assigned at Not on file Legal Sex Female 8:29 PM EDT Gender Identity Not on file Sexual Orientation Not on file documented as of this encounter Miscellaneous Notes * Discharge Summary - Karlo Thrasher - 09/14/2017 12:00 AM EST HOSPITALIZATION: Admit Date:11-Sep-2017 Discharge Date:14-Sep-2017 Discharge Atttending PhysicianPrice MEEKS, Karlo Hoover Primary Care Physician Lupillo Cordero Admitting DiagnosisUnspecified abdominal pain DISCHARGE DIAGNOSIS: * Discharge Diagnosis 1Abdominal pain Reason for Hospitalization Ms. Greco is a 57-year-old female with recurrent preoperative ventral hernia status post ventralincisional hernia repair with myocutaneous flap and mesh excision on 08/26/17 who presented to [facility] on 09/11/17 with persistent postoperative nausea and vomiting. WBC 9, electrolytes withinnormal limits. CT abdomen and pelvis without evidence of strangulated bowel, dehiscence, or hernia recurrence. Given her persistent symptoms, it was decided to admit her for further management. HOSPITAL COURSE: Hospital Course From day of admission, she was managed conservatively with antiemetics and prokinetics (erythromycin). Her nausea and vomiting improved on a daily basis, and she was appropriately advanced back to regular diet. She had evidence of 1 cm wound breakdown of midline incision which was packed with Nu Gauze twice a day. Fascia intact. On the day of discharge the patient was afebrile, ambulating, tolerating PO pain medicine, voiding spontaneously and tolerating a regular diet. It was felt that the patient had reached maximal benefit from hospitalization and was deemed ready for discharge. The patient was discharged in stable condition and will follow up with Dr. Tang on 09/25/17. PHYSICAL EXAMINATION: - GEN: NAD, obese, GCS 15 HEENT: Anicteric, midline trachea CV: RRR PULM: Non-labored breathing on RA GI: Abd soft, nontender, nondistended, incision well healing with focal breakdown into the subcutaneous packed with nugauze EXT: No edema, distal pulses strong and symmetric DISCHARGE INFORMATION: DispositionHome Discharge Conditionstable (signs or symptoms of potential problems absent or manageable) Discharge MedicationsFinal Medication List for Discharge Summary Discharge Medicationsacetaminophen 325 mg oral tablet 2 tab(s) orally every 4 hours, As needed, Fever > 101.5F (38.6C) or Pain; use first. May alternate with NSAIDS if available. albuterol 90 mcg/inh inhalation aerosol 2 puff(s) inhaled 4 times a day, As Needed aspirin 325 mg oral tablet 1 tab(s) orally once a day Basaglar KwikPen 100 units/mL subcutaneous solution subcutaneous 2 times a day 15 units in am 20 units at bedtime buPROPion 150 mg/12 hours (SR) oral tablet, extended release 1 tab(s) orally 2 times a day diazepam 5 mg oral tablet 1 tab(s) orally once a day erythromycin 250 mg oral tablet 1 tab(s) orally 3 times a day fenofibrate 200 mg oral capsule 1 cap(s) orally once a day gabapentin 100 mg oral capsule 1 cap(s) orally 3 times a day HumaLOG 100 units/mL injectable solution unit(s) injectable three times daily: 15 am, 15 noon, 30 bedtime lisinopril 2.5 mg oral tablet 1 tab(s) orally once a day metoprolol tartrate 25 mg oral tablet 1 tab(s) orally 2 times a day niacin 500 mg oral tablet 1 tab(s) orally once a day (at bedtime) Premarin 0.3 mg oral tablet 1 tab(s) orally once a day promethazine 25 mg oral tablet 1 tab(s) orally every 6 hours, As Needed raNITIdine 150 mg oral capsule 1 cap(s) orally 2 times a day spironolactone 50 mg oral tablet 1 tab(s) orally once a day tiZANidine 4 mg oral tablet 1 tab(s) orally 1 to 2 times a day, As Needed topiramate 100 mg oral tablet 1 tab(s) orally 2 times a day Pending ResultsNo Pending Results DISCHARGE INSTRUCTIONS: Diet: No Restrictions. Resume regular at home diet. Other: Please take boost or another high protein liquid supplement three times a day to improve wound healing. Lifting: No lifting more than 5 lbs for 30 days. Activity: move around as you are able and it's okay to have sex. Wound or Incision Care: Reason to call: feels warm or hot to the touch, is red or dark pink, is tight or swollen and looks shiny, becomes more tender or sore to the touch, wound smells bad and wound is draining pus, bleeding or coming open. Special Wound/Incision Care Instructions: Pack midline wound with provided nugauze twice a day. Bathing: Avoid soaking your wound; do NOT take a tub bath. Instructed patient to call if: Other Call if redness to incision site, fever > 101.5F, or uncontrollable nausea, vomiting or diarrhea. Medication Instructions: Take Medication exactly as instructed. Do not take any medications that have not been ordered for This means do not take other people's medication, illegal drugs or substances, or even more aspirin than has been ordered. Additional Instructions: Erythromycin and phenergan for nausea. Recommended Follow Up Instructions: Follow Up Instructions: Follow up with: Cavatassi. moeller/on 09/25/17. ATTESTATION: Attending Attestation: I saw the patient with the resident. I discussed the case with the resident and agree with the resident's findings and plan as documented in the resident's note. Attending Billing: I spent < 30 minutes of patient care and instruction time in preparation for this discharge. Electronic Signatures: Bladimir Portillo MD (Resident) (Signed 14-Sep-17 09:59) Authored: HOSPITALIZATION, DISCHARGE DIAGNOSIS, HOSPITAL COURSE, PHYSICAL EXAMINATION, DISCHARGE INFORMATION, DISCHARGE INSTRUCTIONS, Recommended Follow Up Instructions Karlo Thrasher MD (Attending) (Signed 14-Sep-17 11:28) Authored: ATTESTATION Co-Signer: HOSPITALIZATION, DISCHARGE DIAGNOSIS, HOSPITAL COURSE, PHYSICAL EXAMINATION, DISCHARGE INFORMATION, DISCHARGE INSTRUCTIONS, Recommended Follow Up Instructions Last Updated: 14-Sep-17 11:28 by Karlo Thrasher MD (Attending) * Social Care Assessment Summary - Sanjuana Blair MD - 09/12/2017 12:00 AM EST Pastoral Care Note: Pastoral Care Note: This visit was initiated by the nurse head in relation to initial visit. The patient has a sense of hope. Additional Comments: I visited with the patient and offered support and encouragement. Pastoral Care is happy to follow up PRN. Electronic Signatures: Gume Field (Billet Header) (Signed 12-Sep-17 15:42) Authored: Pastoral Care Note Last Updated: 12-Sep-17 15:42 by Gume Field (Billet Header) * ED Notes - Sanjuana Blair MD - 09/11/2017 12:00 AM EST Triage Presentation: Presentation Date/Time: * ED Arrival Date & Time:11-Sep-2017 11:08 Triage Initial: * Triage Time:11-Sep-2017 11:08 * Chief Complaintpost-op check * Mode of Arrivalwalked Chief Complaint Information: * History of Present Illnesspt arrived to ed stating had hernia repair on 08/26 and was in hospital x10 days, but is still having nausea, unabke to eat and increased pain. Primary Care Physician (PCP): * PCP contacted? No. Home Medications: MedicationInstructionsSubmitted By methocarbamol 500 mg oral tablet1 tab(s) orally every 8 hoursSerena Mcneil MD senna 17.2 mg oral tablet2 tab(s) orally once a day (at bedtime)Serena Mcneil MD scopolamine 1.5 mg transdermal film, extended release1 patch transdermal every 3 daysSerena Mcneil MD oxyCODONE 5 mg oral tablet1 tab(s) orally every 4 hours, As needed, Pain unresponsive to other medications/interventions. Hold for sedation. Serena Mcneil MD spironolactone 25 mg oral tablet1 tab(s) orally once a daySerena Mcneil MD Basaglar KwikPen 100 units/mL subcutaneous solutionsubcutaneous 2 times a day 15 units in am 20 units at lunchAlisa Solomon RN aspirin 325 mg oral tablet1 tab(s) orally once a dayAlisa Solomon RN buPROPion 150 mg/12 hours (SR) oral tablet, extended release1 tab(s) orally 2 times a dayAilsa Solomon RN fenofibrate 200 mg oral capsule1 cap(s) orally once a dayAlisa Solomon RN HumaLOG 100 units/mL injectable solutionunit(s) injectable three times daily: 15 am, 15 noon, 30 bedtimeAlisa Solomon RN lisinopril 2.5 mg oral tablet1 tab(s) orally once a dayAlisa Solomon RN Premarin 0.3 mg oral tablet1 tab(s) orally once a dayAlisa Solomon RN raNITIdine 150 mg oral capsule1 cap(s) orally 2 times a Alisa Dooley RN topiramate 100 mg oral tablet1 tab(s) orally 2 times a dayAlisa Solomon RN niacin 500 mg oral tablet1 tab(s) orally once a day (at bedtime)Tha Luz tiZANidine 4 mg oral tablet1 tab(s) orally 1 to 2 times a day, As NeededWorrell, Tha diazepam 5 mg oral tablet1 tab(s) orally once a Marycarmen Chandra gabapentin 100 mg oral capsule1 cap(s) orally 3 times a dayMarycarmen Patel metoprolol tartrate 25 mg oral tablet1 tab(s) orally 2 times a dayMarycarmen Patel promethazine 25 mg oral tablet1 tab(s) orally every 6 hours, As NeededMarycarmen Patel Vital Signs: Vital Sign Assessment: * Tfasntmp859 mm Hg * Osdgtkbmt68 mm Hg * BP Noninvasive Mean97.33 mm Hg * Temperature F97.4 degrees F * Temperature Celcius 36.33 degrees C * Heart Rate 115 bpm * Respiratory Rate16 breaths per minute * Pulse Oximetry SpO2 (%)100 percent hemoglobin [place] Com[place] Scale: [place] Coma Scale: * GCS - Best Eye Response4= spontaneous * GCS - Best Motor Response6= obeys commands * GCS - Best Verbal Response5= oriented * [place] Coma Scale15 Triage Height/Weight: * Height in feet5 feet * Height in inches0 inch * Height in cm152.4 cm * Initial Weight (lbs)176.4 lb * Initial Weight (kg)80 kg * BMI34.4 * Weight Methodestimated Primary Evaluation: Andi Salter Assessment: * Airway: No Apparent Problems. * Breathing Neither Present. * Productive cough? no. * Circulation: No Apparent Problems. * Disability: No Apparent Problems. Sepsis Screening: * Source of InfectionNone Additional Triage Assessment: * Pain Rating (0-10):9 Allergies: Allergen/ProductAllergen TypeReactionStatusDescription * AxidDrugOtherActiveseizures * CompazineDrugOtherActiveseizures * ToradolDrugOtherActiveseizures * TramadolDrugOtherActiveseizures * Darvocet-N 100DrugOtherActiveseizures * AdvilDrugOtherActiveseizures * AllegraDrugOtherActiveseizures * ReglanDrugOtherActiveseizures * AugmentinDrugRashActive * ZofranDrugRashActive General Information: Past 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: * Health Historyasthma- diabetes- HTN- hyperlipidemia- hernia General Medication Information: * Current Medications:see medication reconcilliation sheet Communicable Diseases/ Immunizations: * negative. * no. Travel Information: * Have you traveled outside the [place] in the past 60 days?no General Information: * Language Assistance Needed?no Acuity: * Acuity:3 Triage Completion Time: * Triage Completion [id number] 11:13 Electronic Signatures: Ronel Leary RN (Nurse) (Signed 11-Sep-17 11:13) Authored: Triage Presentation, Primary Evaluation, General Information Last Updated: 11-Sep-17 11:13 by Ronel Leary RN (Nurse) * ED Notes - Sanjuana Blair MD - 09/11/2017 12:00 AM EST Registration:: ED Presentation: * ED Arrival Date & Time:11-Sep-2017 11:01 * Reason for Visit:post op comp Disposition:: Patient Disposition: * Disposition:Admit to ... * Where will the patient be admitted?F ([facility] Floor) room 630 * Mode of exit:wheelchair Boarding Evaluation: * Will this patient be boarding in the ED?yes * What location is the patient boarding for?F ([facility] Floor) room 630 Electronic Signatures: Gloria Gary (Patient Registration) (Signed 11-Sep-17 11:12) Authored: Registration: Leona Rueda (Nursing Director Instructional Material) (Signed 11-Sep-17 23:09) Authored: Disposition: Last Updated: 11-Sep-17 23:09 by Leona Rueda (Nursing Director Instructional Material) * ED Notes - Zoë Sands - 09/11/2017 12:00 AM EST Evaluation Time: * Patient seen on:11-Sep-2017 11:17 Evaluation: - CHIEF COMPLAINT: Post-op complications HISTORY OF PRESENT ILLNESS: TYRA GRECO is a 57y female with a history of TIA, DM, and HTN who presents to the ED for complaints of 9/10 abdominal pain secondary to a hernia repair 6 days ago.She reports that she has been having diffuse abdominal pain ever since her hernia repair 6 days agothat has been associated with nausea, dry heaves, decreased appetite and chills. She states that she has been having normal bowel movements and flatulence but denies any new fevers. She endorses thatshe has been able to tolerate water PO. MEDICAL HISTORY: DM, HTN, neuropathy, asthma SURGICAL HISTORY: Bilateral knees, bilateral carpal tunnel repairs, hiatal hernia repair, hysterectomy, CCY, back surgery MEDICINES: Reviewed ALLERGIES: Advil->Other Sharmaine->Other Augmentin->Rash Axid->Other Compazine->Other Toradol->Other Tramadol->Other Darvocet-N 100->Other Zofran->Rash Reglan->Other SOCIAL HISTORY: Negative for current tobacco, alcohol, or recreational drug use. FAMILY MEDICAL HISTORY: Non-contributory REVIEW OF SYSTEMS: Positive per HPI, otherwise 14 point review of systems negative. VITALS: VITALS (last 24h) [retrieved for TYRA GRECO at 11 Sep 2017 11:23]: Tc: 36.3 Tmax: 36.3 @ Sep 11:08 Tf: 97.4 Tmax: 97.4 @ Sep 11:08 HR: 115 (115 - 115) BP: 134/79 (134/79 - 134/79) RR: 16 (16 - 16) SpO2: 100% (100% - 100%) PHYSICAL EXAM: GENERAL: no acute distress, appears uncomfortable but non-toxic, well-developed, well-nourished, answering questions appropriately, speaking in full sentences. HEENT: atraumatic, normocephalic. PERRL, EOMI. NECK: supple HEART: Regular rhythm and rate with no murmurs, gallops, or rubs. LUNGS: Normal effort and adequate air movement with no wheezing, rales, or rhonchi. ABDOMEN: Diffusely ttp abdomen with well-healing vertical incision to left abdomen. RUQ drain site with pus draining from wound. No cellulitis. EXTREMITIES: Moving all four extremities, no acute deformity or joint effusions. No cyanosis or edema. SKIN: Warm, dry, well-perfused. PSYCH: Appropriate. NEURO: Alert and oriented (x3). Peripheral sensory and motor function grossly intact. LABS AND IMAGING: ED COURSE / MDM : The patient's room air Pulse Ox is currently 100%. This is appropriate at this time and no intervention is needed. Differential diagnosis of abdominal pain includes wound infection, AAA, appendicitis, ectopic, torsion, PID, diverticulitis, cholecystitis, SBO/LBO, mesenteric ischemia and perforated bowel. All of these have been considered. Labs show elevated lactate CT a/p shows intraabdominal abscesses. Gen surg consulted, pt to be admitted. IMPRESSION: acute post-operative wound infection abdominal abscess elevated lactic acid DISPOSITION:admit Physician Attestation: The documentation was recorded by Brody Pinto acting as scribe in my presence at the time of the encounter and accurately reflects the service I personally performed and the decisions made by me. Date/Time: 11 September 2017 Entered by Ermias Pinto, acting as scribe for Dr. Sands Electronic Signatures: Zoë Sands MD (Attending) (Signed 11-Sep-17 16:36) Authored: EVALUATION Co-Signer: EVALUATION TIME, EVALUATION Ermias Pinto (Scribe) (Signed 11-Sep-17 11:31) Authored: EVALUATION TIME, EVALUATION Last Updated: 11-Sep-17 16:36 by Zoë Sands MD (Attending) * Consults - Panfilo Arreola MD - 09/11/2017 12:00 AM EST Consultation Service: Service/ Team: SSG - Surgery / [facility]-Surgical Specialties. Requesting Attending Physician: Zoë Sands MD(Attending): Attending, Emergency Medicine, Medicine Consult Information: * Consult Requested Date/[id number] 14:44 * Consult Completed Date/ 14:44 Chief Complaint: Requesting ServiceED Reason for ConsultPost-operative wound infection Consult Note: - Consult Note 11 September 2017 HPI This is a 57y year old female sp ventral hernia repair on 08/26 and discharged 09/05 presenting with abdominal pain and nausea that has been persistent since her operation. She endorses chills, but denies fever, constipation, diarrhea, or other new complaints. She presents to the ED as she reports that she has not been able to take proper PO. She has had a dressing over her right drain site since discharge. Past 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: DM, HTN, neuropathy, asthma Past Surgical History: Bilateral knees, bilateral carpal tunnel repairs, hiatal hernia repair, hysterectomy, CCY, back surgery Social History: Tobacco- denies EtOH- denies Illicits- denies Family History: Reviewed and noncontributory Medications: Active Meds [retrieved for TYRA GRECO at 11 Sep 2017 14:45]: OTHER (Pharmacy): 1 EACH <see task> GivenOnce (Pharmacy): 1 EACH <see task> GivenOnce (Pharmacy): 1 EACH <see task> GivenOnce Allergies: Advil->Other Sharmaine->Other Augmentin->Rash Axid->Other Compazine->Other Toradol->Other Tramadol->Other Darvocet-N 100->Other Zofran->Rash Reglan->Other Review of Systems: A complete 12-point review of systems was performed and was negative except for those details provided in the HPI Exam: VITALS (last 24h) [retrieved for TYRA GRECO at 11 Sep 2017 14:45]: Tc: 36.3 Tmax: 36.3 @ Sep 11:08 Tf: 97.4 Tmax: 97.4 @ Sep 11:08 HR: 115 (115 - 115) BP: 134/79 (134/79 - 134/79) RR: 16 (16 - 16) SpO2: 100% (100% - 100%) 152.0cm 80.0kg Constitutional: Resting comfortably, no acute distress Eyes: Pupils equal round and reactive to light bilaterally, conjunctiva are pink and noninflamed, extraocular movements are intact ENMT: Normocephalic, atraumatic. mucous membranes are pink and moist. Respiratory: No respiratory distress or labored breathing, Cardiovascular: 2+ radial pulses without lag, no extremity edema GI/abdomen: Positive bowel sounds in all 4 quadrants, soft and flat. Midline incision clean, dry and intact without erythema, edema or drainage. right JOVANNI drain site with fibrinous debris. 1 x 1 cm area of tracking inferomedially with no expressible purulence. No surrounding erythema or edema. Lymphatic: No cervical adenopathy palpated Skin: Good turgor, pink and well-perfused, no rashes noted MSK: Moves all extremities equally Neuro: Cranial nerves II through XII grossly intact, no focal deficits LABS (last 48h) [retrieved for TYRA GRECO at 11 Sep 2017 14:45]: 136 95 32 < 279 Ca: 9.3 [09/11 @ 11:29] 3.9 23 1.60 WBC: 9.1 / Hb: 10.4 / Hct: 30.5 / Plt: 419 [09/11 @ 11:29] AST: 46 / ALT: 28 / AlkPhos: 81 / Bili: 0.4 / Prot: 7.9 / Alb: 3.0 / Lip: 270 [09/11 @ 11:29] CT abd/pelvis: FINDINGS: Lower Chest: Multiple bilateral calcified nodules likely sequelae of prior granulomatous disease. Nonspecific 2 mm right lower lobe is incompletely imaged (series 3, image 1). Solid Abdominal Organs: Unremarkable liver. Status post cholecystectomy. No suspicious renal mass lesions. No hydronephrosis. Unremarkable spleen. No suspicious adrenal findings. No suspicious pancreatic findings. GI Tract/Mesentery/Peritoneum: The large and small bowel appear normal in caliber. No evidence of inflammatory change. No suspicious peritoneal/mesenteric findings. Postsurgical changes from prior fundoplication. Pelvic Viscera: No suspicious pelvic mass lesions. Lymph Nodes/Vasculature: No lymphadenopathy by CT size criteria. The aortoiliac vasculature is patent and normal in caliber. Free Fluid: No ascites Musculoskeletal and Body Wall:Postsurgical changes with mesh from prior anterior abdominal wall hernia repair. There is diastases of the abdominal musculature with recurrent fat-containing hernia in the midline. The hernia does not contain bowel. There are nonspecific subcutaneous nodules in the overlying abdominal fat which may be related to prior surgery (series 2, image 29 and image 25). Posterior fusion hardware in the mid thoracic spine is partially imaged. Grade 1 anterolisthesis of L4 on L5. IMPRESSION: Postsurgical changes from prior hernia repair. There is diastases of the anterior abdominal wall musculature with recurrent fat-containing ventral. The hernia does not contain bowel. Assessment/Plan: 57y year old female w/ hx of ventral hernia s/p repair 08/26 presenting for persistent nausea and abdominal pain. No evidence of abscess on physical examination. - Will admit to SSG team 1 - regular diet - restart home meds - nausea control Jose J Nielsen MD PGY1 Otolaryngology-Head & Neck Surgery [phone] Attestation: I saw and evaluated the patient with the resident/fellow. I discussed the case with the resident/fellow and agree with the findings and plan as documented. Attending Physician Comments: 57 yo woman s/p open ventral hernia repair with retrorectus mesh. I viewed the CT scan and do not see any recurrence of a hernia or dehiscence. There is no evidence of bowel obstruction on CT and sheis moving her bowels. She is tolerating liquids and staying hydrated but has persistent nausea. Will try to control nausea and have her eat as tolerated. Electronic Signatures: Jose J Nilesen MD (Resident) (Signed 11-Sep-17 17:16) Authored: CONSULTATION SERVICE, EVALUATION Panfilo Arreola MD (Attending) (Signed 12-Sep-17 10:05) Authored: CRITICAL CARE CHARGING STATEMENT/ATTENDING ATTESTATION Co-Signer: CONSULTATION SERVICE, EVALUATION Last Updated: 12-Sep-17 10:05 by Panfilo Arreola MD (Attending) documented in this encounter Plan of Treatment Not on file documented as of this encounter Procedures Procedure Name Priority Date/Time Associated Diagnosis Comments GLUCOSE POINT OF CARE DC Routine 09/14/2017 3:34 PM EDT GLUCOSE POINT OF CARE DC Routine 09/14/2017 11:28 AM EDT GLUCOSE POINT OF CARE DC Routine 09/14/2017 7:55 AM EDT GLUCOSE POINT OF CARE DC Routine 09/14/2017 4:24 AM EDT GLUCOSE POINT OF CARE DC Routine 09/13/2017 7:31 PM EST GLUCOSE POINT OF CARE DC Routine 09/13/2017 4:46 PM EST GLUCOSE POINT OF CARE DC Routine 09/13/2017 11:18 AM EST GLUCOSE POINT OF CARE DC Routine 09/13/2017 8:11 AM EST GLUCOSE POINT OF CARE DC Routine 09/12/2017 8:00 PM EST GLUCOSE POINT OF CARE DC Routine 09/12/2017 4:10 PM EST GLUCOSE POINT OF CARE DC Routine 09/12/2017 10:40 AM EST GLUCOSE POINT OF CARE DC Routine 09/12/2017 7:35 AM EST GLUCOSE POINT OF CARE DC Routine 09/12/2017 2:59 AM EST GLUCOSE POINT OF CARE DC Routine 09/11/2017 8:[address] ABDOMEN PELVIS W IV CONTRAST Routine 09/11/2017 12:56 PM EST EXTRA TUBES Routine 09/11/2017 11:29 AM EST BLOOD CULTURE (AEROBIC/ANAEROBIC SET) STAT 09/11/2017 11:29 AM EST BLOOD CULTURE (AEROBIC/ANAEROBIC SET) STAT 09/11/2017 11:29 AM EST CBC W/O DIFFERENTIAL STAT 09/11/2017 11:29 AM EST LIPASE, PLASMA STAT 09/11/2017 11:29 AM EST COMPREHENSIVE METABOLIC PANEL, PLASMA STAT 09/11/2017 11:29 AM EST LACTATE, VENOUS STAT 09/11/2017 11:28 AM EST documented in this encounter Results * (ABNORMAL) Glucose Point of Care. (09/14/2017 3:34 PM EDT) [facility] POCT Glucose 196(H) 74 - 99 mg/dL SUNQUEST Comment:Whole Blood 09/14/2017 3:34 PM EDT 09/14/2017 3:36 PM EDT us Daniel Tang MD LAB BLOOD ORDERABLES Rula bernard Result SUNQUEST * (ABNORMAL) Glucose Point of Care. (09/14/2017 11:28 AM EDT) POCT Glucose 182(H) 74 - 99 mg/dL SUNQUEST Comment:Whole Blood 09/14/2017 11:2 8 AM EDT 09/14/2017 11:31 AM EDT Dainel Tang MD LAB BLOOD ORDERABLES Rula l Result Performing Organization Address [facility] de Phone Number SUNQUEST * (ABNORMAL) Glucose Point of Care. (09/14/2017 7:55 AM EDT) POCT Glucose 157(H) 74 - 99 mg/dL SUNQUEST Comment:Whole Blood 09/14/2017 7:55 AM EDT 09/14/2017 7:56 AM EDT Daniel Tang MD LAB BLOOD ORDERABLES Rula l Result Performing Organization Address [facility] Phone Number SUNQUEST * (ABNORMAL) Glucose Point of Care. (09/14/2017 4:24 AM EDT) POCT Glucose 187(H) 74 - 99 mg/dL SUNQUEST Comment:Whole Blood 09/14/2017 4:24 AM EDT 09/14/2017 4:26 AM EDT Daniel Tang MD LAB BLOOD ORDERABLES Rula l Result Performing Organization Address [facility] de Phone Number SUNQUEST * (ABNORMAL) Glucose Point of Care. (09/13/2017 7:31 PM EST) POCT Glucose 242(H) 74 - 99 mg/dL SUNQUEST Comment:Whole Blood 09/13/2017 7:31 PM EST 09/13/2017 7:32 PM EST Daniel Tang MD LAB BLOOD ORDERABLES Rula l Result Performing Organization Address [facility] de Phone Number SUNQUEST * (ABNORMAL) Glucose Point of Care. (09/13/2017 4:46 PM EST) POCT Glucose 198(H) 74 - 99 mg/dL SUNQUEST Comment:Whole Blood 09/13/2017 4:46 PM EST 09/13/2017 4:47 PM EST Daniel Tang MD LAB BLOOD ORDERABLES Rula l Result Performing Organization Address [facility] de Phone Number SUNQUEST * (ABNORMAL) Glucose Point of Care. (09/13/2017 11:18 AM EST) POCT Glucose 192(H) 74 - 99 mg/dL SUNQUEST Comment:Whole Blood 09/13/2017 11:1 8 AM EST 09/13/2017 11:21 AM EST Daniel Tang MD LAB BLOOD ORDERABLES Rula l Result Performing Organization Address [facility] de Phone Number SUNQUEST * (ABNORMAL) Glucose Point of Care. (09/13/2017 8:11 AM EST) Pathologist [facility] POCT Glucose 152(H) 74 - 99 mg/dL SUNQUEST Comment:Whole Blood 09/13/2017 8:11 AM EST 09/13/2017 11:16 AM EST Daniel Tang MD LAB BLOOD ORDERABLES Rula l Result Performing Organization Address [facility] de Phone Number SUNQUEST * (ABNORMAL) Glucose Point of Care. (09/12/2017 8:00 PM EST) POCT Glucose 184(H) 74 - 99 mg/dL SUNQUEST Comment:Whole Blood 09/12/2017 8:00 PM EST 09/12/2017 8:01 PM EST Daniel Tang MD LAB BLOOD ORDERABLES Rula l Result Performing Organization Address [facility] de Phone Number SUNQUEST * (ABNORMAL) Glucose Point of Care. (09/12/2017 4:10 PM EST) POCT Glucose 159(H) 74 - 99 mg/dL SUNQUEST Comment:Whole Blood 09/12/2017 4:10 PM EST 09/12/2017 4:11 PM EST Daniel Tang MD LAB BLOOD ORDERABLES Rula l Result Performing Organization Address [facility] de Phone Number SUNQUEST * (ABNORMAL) Glucose Point of Care. (09/12/2017 10:40 AM EST) POCT Glucose 207(H) 74 - 99 mg/dL SUNQUEST Comment:Whole Blood 09/12/2017 10:4 0 AM EST 09/12/2017 10:41 AM EST Daniel Tang MD LAB BLOOD ORDERABLES Rula l Result Performing Organization Address [facility] de Phone Number SUNQUEST * (ABNORMAL) Glucose Point of Care. (09/12/2017 7:35 AM EST) Pathologist [facility] POCT Glucose 182(H) 74 - 99 mg/dL SUNQUEST Comment:Whole Blood 09/12/2017 7:35 AM EST 09/12/2017 7:36 AM EST Daniel Tang MD LAB BLOOD ORDERABLES Rula l Result Performing Organization Address [facility] de Phone Number SUNQUEST * (ABNORMAL) Glucose Point of Care. (09/12/2017 2:59 AM EST) POCT Glucose 152(H) 74 - 99 mg/dL SUNQUEST Comment:Whole Blood 09/12/2017 2:59 AM EST 09/12/2017 2:56 AM EST Daniel Tang MD LAB BLOOD ORDERABLES Rula l Result SUNQUEST * (ABNORMAL) Glucose Point of Care. (09/11/2017 8:12 PM EST) POCT Glucose 187(H) 74 - 99 mg/dL SUNQUEST Comment:Whole Blood 09/11/2017 8:12 PM EST 09/11/2017 8:11 PM EST Daniel Tang MD LAB BLOOD ORDERABLES Rula bernard Result SUNQUEST * CT Abdomen Pelvis w IV Contrast (09/11/2017 12:56 PM EST) Anatomical Region Laterality Modality Abdomen, Pelvis Computed Tomogra phy Narrative 09/11/2017 3:07 PM EST REQUESTING PHYSICIAN: ZOË SANDS REASON FOR EXAMINATION/PROCEDURE: RAD PDP:Y ??* ??post-ventral hernia repair, diffuse abdominal pain EXAMINATION / PROCEDURE: CT ABDOMEN/PELVIS W CONTRAST Mar ??8 2017 - 12:56; ?? CLINICAL INDICATIO N: RAD PDP:Y ??* ??post-ventral hernia repair, diffuse abdominal pain TECHNIQUE: Imaging of the abdomen and pelvis was performed, from lung bases through pubic symphysis, using spiral technique, following administration of IV contrast, Omnipaq ue 300, 100 mL. Delayed (excretory phase) images were performed through the kidneys. Reformatted images in the coronal and sagittal planes were generated from the axial data set to facilitate diagnostic accuracy. Total DLP (Dose-Length Produc t): 1713 mGy*cm. Please note: The reported value represents the total of one or more individual components during the CT acquisition on this date and at this time, and as such, the same value may appear in more than one CT report depending on th e interpreting/reporting physicians. COMPARISON: 08/26/2017 FINDINGS: Lung Bases: The lung bases are clear. Liver/Gallbladder/Biliary system: The liver demonstrates homogeneous enhancement with subtle nodularity. Postcholecystectomy. No ??intra- or extra-hepatic biliary ductal dilatation. Common bile duct is mildly dilated but is normal for postcholecystectomy. Spleen: The spleen enhances homogeneously. Pancreas: The pancreas enhances homogeneously. Adrenals: The adrenals are morphologically unremarkable. Kidneys: The kidneys demonstrate symmetric nephrogram and excretion. No renal or ureteral calculi. No hydronephrosis. Bowel/Mesentery: The small bowel loops are not dilated. The large bowel loops mildly dila edgar with gas. Vessels/Lymph Nodes: The abdominal aorta is unremarkable. No lymphadenopathy within the abdomen or pelvis. Fluid Survey: No free fluid in the abdomen. No free fluid in the pelvis. Pelvis: The pelvic viscera are unremarkable. Body Wall: There is ??fat tissue stranding with gas foci along the incision line extending to the anterior fascial layer. There is a 1.3 cm fluid collection in the anterior abdominal wall adjacent to the subhepatic region. Just below this regio n there is small fluid collection measuring 2.8 x 1.3 mm with fluid tracking along the anterior abdominal wall and extensive subcutaneous fat stranding. There is also inflammation around the external oblique muscle on the right with a small righ t-sided intramuscular fluid collection immediately adjacent to the anterior right iliac bone. Bones: No acute fracture. ?? IMPRESSION: 1. Extensive fat tissue stranding and small fluid collections tracking along the anterior abdominal mus cles concerning for infection. There is also fluid collection with fat tissue stranding in the external oblique muscle on the right side at the pelvic inlet; image guided aspiration might be more specific for the presence of infection. CRITIC AL RESULT: ?? No. COMMUNICATION: Findings were discussed by telephone with Dr. Sands, the patient's emergency medicine attending physician at 2:00 PM on 11 September 2017. By electronically signing this report, I, the attending physician, att est that I have personally reviewed the images/data for the above examination(s) and agree with the final edited report. ?? Verified by: FERNANDO GAN M.D. on Sep ??2017 ??3:06P Transcribed by: [facility]ITAL[facility] on Sep ??2017 ??2:16P Dictated by: MARCELLA ??Bill CORNEJO on Sep ??2017 ??2:16P Procedure Note Fernando Gan - 10/29/2020 REQUESTING PHYSICIAN: ZOË SANDS REASON FOR EXAMINATION/PROCEDURE: RAD PDP:Y * post-ventral hernia repair, diffuse abdominal pain EXAMINATION / PROCEDURE: CT ABDOMEN/PELVIS W CONTRAST Sep 11 2017 - 12:56; CLINICAL INDICATIO N: RAD PDP:Y * post-ventral hernia repair, diffuse abdominal pain TECHNIQUE: Imaging of the abdomen and pelvis was performed, from lung bases through pubic symphysis, using spiral technique, following administration of IV contrast, Omnipaq ue 300, 100 mL. Delayed (excretory phase) images were performed through the kidneys. Reformatted images in the coronal and sagittal planes were generated from the axial data set to facilitate diagnostic accuracy. Total DLP (Dose-Length Produc t): 1713 mGy*cm. Please note: The reported value represents the total of one or more individual components during the CT acquisition on this date and at this time, and as such, the same value may appear in more than one CT report depending on th e interpreting/reporting physicians. COMPARISON: 08/26/2017 FINDINGS: Lung Bases: The lung bases are clear. Liver/Gallbladder/Biliary system: The liver demonstrates homogeneous enhancement with subtle nodularity. Postcholecystectomy. No intra- or extra-hepatic biliary ductal dilatation. Common bile duct is mildly dilated but is normal forpostcholecystectomy. Spleen: The spleen enhances homogeneously. Pancreas: The pancreas enhances homogeneously. Adrenals: The adrenals are morphologically unremarkable. Kidneys: The kidneys demonstrate symmetric nephrogram and excretion. No renal or ureteral calculi. No hydronephrosis. Bowel/Mesentery: The small bowel loops are not dilated. The large bowel loops mildly dila edgar with gas. Vessels/Lymph Nodes: The abdominal aorta is unremarkable. No lymphadenopathy within the abdomen or pelvis. Fluid Survey: No free fluid in the abdomen. No free fluid in the pelvis. Pelvis: The pelvic viscera are unremarkable. Body Wall: There is fat tissue stranding with gas foci along the incision line extending to the anterior fascial layer. There is a 1.3 cm fluid collection in the anterior abdominal wall adjacent to the subhepatic region. Just below this regio n there is small fluid collection measuring 2.8 x 1.3 mm with fluid tracking along the anterior abdominal wall and extensive subcutaneous fat stranding. There is also inflammation around the external oblique muscle on the right with a small righ t-sided intramuscular fluid collection immediately adjacent to the anterior right iliac bone. Bones: No acute fracture. IMPRESSION: 1. Extensive fat tissue stranding and small fluid collections tracking along the anterior abdominal mus cles concerning for infection. There is also fluid collection with fat tissue stranding in the external oblique muscle on the right side at the pelvic inlet; image guided aspiration might be more specific for the presence of infection. CRITIC AL RESULT: No. COMMUNICATION: Findings were discussed by telephone with Dr. Sands, the patient's emergency medicine attending physician at 2:00 PM on 11 September 2017. By electronically signing this report, I, the attending physician, att est that I have personally reviewed the images/data for the above examination(s) and agree with the final edited report. Verified by: FERNANDO GAN M.D. on Sep 11 2017 3:06P Transcribed by: YVES on Sep 11 2017 2:16P Dictated by: MARCELLA CORNEJO M.D. on Sep 11 2017 2:16P Zoë Sands MD IMG CT PROCEDURES Final Result * Extra Tubes (09/11/2017 11:29 AM EST) [facility] Extra GREEN TOP TUBE. PLASMA REFRIGERATED IN LAB 72 HOURS. SUNQUEST 09/11/2017 11:2 9 AM EST 09/11/2017 11:44 AM EST Zoë Sands MD LAB BLOOD ORDERABLES Fin al Result SUNQUEST * (ABNORMAL) CBC W/O Differential (09/11/2017 11:29 AM EST) Pathologist [facility] WBC Count 9.1 3.7 - 10.3 k/uL SUNQUEST RBC Count 3.29(L) 3.9 - 5.2 M/uL SUNQUEST HGB 10.4(L) 11.2 - 15.7 g/dL SUNQUEST HCT 30.5(L) 34 - 45 % SUNQUEST Platelet Count 419(H) 155 - 369 k/uL SUNQUEST MCV 93 79 - 98 fL SUNQUEST MCH 31.6 26 - 32 pg SUNQUEST MCHC 34.1 30.7 - 35.5 g/dL SUNQUEST RDW 12.6 12.4 - 14.9 % SUNQUEST MPV 9.3 8.8 - 12.5 fL SUNQUEST NRBC COUNT 0 0 % SUNQUEST 09/11/2017 11:2 9 AM EST 09/11/2017 11:44 AM EST Zoë Sands MD LAB BLOOD ORDERABLES Fin al Result Performing Organization Address [facility] Co de Phone Number SUNQUEST * (ABNORMAL) Lipase, Plasma (09/11/2017 11:29 AM EST) Lipase, Plasma 270(H) 19 - 63 U/L SUNQUEST 09/11/2017 11:2 9 AM EST 09/11/2017 11:45 AM EST Zoë Sands MD LAB BLOOD ORDERABLES Fin al Result Performing Organization Address [facility] de Phone Number SUNQUEST * (ABNORMAL) Comprehensive Metabolic Panel, Plasma (09/11/2017 11:29 AM EST) Glucose, Plasma 279(H) 74 - 99 mg/dL SUNQUEST BUN, Plasma 32(H) 7 - 21 mg/dL SUNQUEST Creatinine, Plasma 1.60(H) 0.60 - 1.10 mg/dL SUNQUEST BUN/Creatinine Ratio 20 8 - 20 SUNQUEST Sodium, Plasma 136 136 - 145 mmol/L SUNQUEST Potassium, Plasma 3.9 3.7 - 4.8 mmol/L SUNQUEST Chloride, Plasma 95(L) 101 - 108 mmol/L SUNQUEST CO2, Plasma 23 22 - 29 mmol/L SUNQUEST Anion Gap 18(H) 6 - 16 mmol/L SUNQUEST Calcium, Plasma 9.3 8.9 - 10.2 mg/dL SUNQUEST AST, Plasma 46(H) 11 - 32 U/L SUNQUEST ALT, Plasma 28 8 - 33 U/L SUNQUEST Alkaline Phosphatase, Plasma 81 46 - 142 U/L SUNQUEST Total Bilirubin, Plasma 0.4 0.2 - 1.1 mg/dL SUNQUEST Total Protein 7.9 6.3 - 7.9 g/dL SUNQUEST Albumin, Plasma 3.0(L) 3.3 - 4.6 g/dL SUNQUEST eGFR 33(L) >60 SEE NOTE SUNQUEST eGFR, if AFR/AM 40(L) >60 SEE NOTE SUNQUEST Comment: eGFR = estimated GFR, eGFR units = mL/min/1.73 sq meters Chronic Kidney Disease is considered if eGFR <60 mL/min/1.73 sq meters. Kidney failure is considered if <15 mL/min/1.73 sq meters. eGFR assumes steady state plasma creatinine concentration, not applicable if renal function is rapidly changing or patient is on dialysis. 09/11/2017 11:2 9 AM EST 09/11/2017 11:45 AM EST Zoë Sands MD LAB BLOOD ORDERABLES Fin al Result Performing Organization Address [facility] de Phone Number SUNQUEST * Blood Culture (Aerobic/Anaerobet Set) (09/11/2017 11:29 AM EST) 09/11/2017 11:2 9 AM EST 09/11/2017 1:44 PM EST Narrative SUNQUEST - 08/02/2020 6:33 AM EST SQ ACC. NUMBER ?[id number] SPECIMEN DESCRIPTION: ?BLOOD RIGHT AC SPECIAL REQUESTS: ?NONE CULTURE: ? NO GROWTH DAY 5. REPORT STATUS: ? FINAL 09/17/2017 us Zoë Sands MD LAB MICROBIOLOGY - GENER AL ORDERABLES Final Result Performing Organization Address [facility] de Phone Number SUNQUEST * Blood Culture (Aerobic/Anaerobet Set) (09/11/2017 11:29 AM EST) 09/11/2017 11:2 9 AM EST 09/11/2017 1:43 PM EST Narrative SUNQUEST - 08/02/2020 6:33 AM EST SQ ACC. NUMBER ?[id number] SPECIMEN DESCRIPTION: ?PERIPHERAL BLOOD RIGHT HAND SPECIAL REQUESTS: ?NONE CULTURE: ? NO GROWTH DAY 5. REPORT STATUS: ? FINAL 09/17/2017 Zoë Sands MD LAB MICROBIOLOGY - GENER AL ORDERABLES Final Result Performing Organization Address [facility] de Phone Number SUNQUEST * (ABNORMAL) Lactate, venous (09/11/2017 11:28 AM EST) Lactate, Venous 3.3(H) 0.5 - 2.2 mmol/L SUNQUEST 09/11/2017 11:2 8 AM EST 09/11/2017 11:39 AM EST Zoë Sands MD LAB BLOOD ORDERABLES Fin al Result Performing Organization Address [facility] de Phone Number SUNQUEST documented in this encounter Visit Diagnoses Diagnosis Vomiting following gastrointestinal surgery documented in this encounter
--- OUTSIDE RECORDS SUMMARY | 2024-06-22 10:19 | XMS_ITS | Encounter Summary ---
Author Organization Healthcare Address [address] [id number] Care Team Providers Care Mass Spec Name Role Phone Unavailable Primary Care Provider Unavailabl e Encounter Details Date Type Department Care Team (Late st Contact Info) Description 04/10/2017 [facility] Vitals Encounter [facility] OUTPATIENT CONVERSIONS [address] [place] [address] ProviderSanjuana MD [address] [place] [id number] Social History Tobacco Use Types Packs/Day Years Used Date Smoking Tobacco: Never Assessed Comments Unknown Sex and Gender Information Value Date Recorded Sex Assigned at Not on file Legal Sex Female 8:29 PM EDT Gender Identity Not on file Sexual Orientation Not on file documented as of this encounter Last Filed Vital Signs Vital Sign Reading Time Taken Comments Blood Pressure - - Pulse - - Temperature - - Respiratory Rate - - Oxygen Saturation - - Inhaled Oxygen Concentration - - Weight 81.2 kg (178 lb 15.9 oz) 017 10:01 AM EDT Height 153.7 cm (5' 0.5 ) 04/10/2017 10 :01 AM EDT Body Mass Index 34.38 04/10/2017 10:01 AM EDT documented in this encounter Plan of Treatment Not on file documented as of this encounter Visit Diagnoses Not on filedocumented in this encounter
--- OUTSIDE RECORDS SUMMARY | 2024-06-22 10:19 | XMS_ITS | Clinical Summary ---
Author Organization 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 Name Role Phone Lupillo Garcia MD Primary Care Provider Allergies Active Allergy Reactions Criticality Noted Date Comments Ibuprofen Other (See Comments) 08/12/2013 seizures Fexofenadine Other (See Comments) 08/12/2013 seizures Amoxicillin-Pot Clavulanate Other (See Comments) 08/12/2013 seizures Nizatidine Other (See Comments) 08/12/2013 seizures Prochlorperazine Other (See Comments) 4 seizures Propoxyphene N-Acetaminophen Other (See Comments) 08/12/2013 seizures Metoclopramide Other (See Comments) 08/12/2013 seizures Ketorolac Rash 08/12/2013 Tramadol Rash 08/12/2013 Ondansetron Other (See Comments) 08/12/2013 seizures Medications tiZANidine (ZANAFLEX) 4 mg tablet Take 4 mg by mouth 3 times daily. Take 11/2 tabs as needed Active estrogens, conjugated, (PREMARIN) 0.3 mg tablet Take 0.3 mg by mouth daily. Active fenofibrate (LOFIBRA) 160 mg tablet Take 160 mg by mouth daily. Active omeprazole (PRILOSEC) 20 mg Take 20 mg by mouth daily. Active promethazine (PHENERGAN) 25 mg tablet Take 25 mg by mouth every 6 hours as needed for Nausea. Active gabapentin (NEURONTIN) 100 mg Oral Capsule Take 100 mg by mouth 3 times daily. Active buPROPion (WELLBUTRIN SR) 150 mg SR tablet Take 150 mg by mouth 2 times daily. Active topiramate (TOPAMAX) 100 mg Oral Tablet Take by mouth 2 times daily. Active metoprolol (LOPRESSOR) 25 mg tablet Take 25 mg by mouth 2 times daily. Active HYDROcodone-elidia taminophen (LORTAB) 10-500 mg Take 1 Tab by mouth every 6 hours as needed. Active albuterol (PROVENTIL HFA;VENTOLIN HFA) 90 mcg/actuation inhaler Inhale 2 Puffs into the lungs every 6 hours as needed for Wheezing. Active SUMAtriptan (IMITREX) 100 mg tablet Take 100 mg by mouth once as needed for Migraine. Active Insulin glargine (LANTUS) 100 unit/mL (3 mL) SubQ Insulin Pen Subcutaneous (Inject under the skin) 20 Units nightly. 15 units am Active INSULIN LISPRO (HUMALOG SUBQ) Subcutaneous (Inject under the skin). Sliding scale Active tocopherol acetate (VITAMIN E) 400 unit Oral Capsule Take 400 Units by mouth daily. Active methocarbamoL (ROBAXIN) 500 mg Oral Tablet Take 500 mg by mouth 4 times daily. Active diazePAM (VALIUM) 5 mg Oral Tablet Take by mouth every 8 hours. Active atorvastatin (LIPITOR) 40 mg Oral Tablet Take 40 mg by mouth daily. Active loperamide (IMODIUM) 2 mg Oral Capsule Take 1 Capsule by mouth 4 times daily as needed for Diarrhea. 30 Capsule 1 Active Saccharomyces boulardii (FLORASTOR) 250 mg Oral Capsule Take 1 Capsule by mouth 2 times daily. 30 Capsule 1 Active Sodium Bicarbonate 650 mg Oral Tablet Take 1 Tablet by mouth 2 times daily. 60 Tablet 1 Active Active Problems Problem Noted Date Diagnosed Date COVID-19 virus infection 03/05/2021 COVID-19 03/05/2021 Chronic diarrhea 03/05/2021 COVID 03/03/2021 Difficult airway for intubation 08/19/2013 Overview (08/19/2013): Patient with small mouth, receding chin and high larynx. Need Glidescope for intubation. Easy bag-mask ventilation. Unstable angina pectoris VIOLA (acute kidney injury) Essential hypertension Diabetes mellitus Hypotension Migraines Overview (03/05/2021): topamax Metabolic acidosis, NAG, bicarbonate losses Surgical History Surgery Date Site/Laterality Comments BACK SURGERY KNEE SURGERY right knee scope FOOT SURGERY right x2 left x1 HAND SURGERY LCTR left trigger finger HIATAL HERNIA REPAIR x3 HYSTERECTOMY KNEE ARTHROSCOPY 08/19/2013 Left Left Knee Arthroscopy Partial Medial Meniscectomy Chondrplasty Patella Femoral condyle; Surgeon: Alexander Whittington MD; Location: [facility]; Service: Orthopedics 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 Date Comments Asthma Unspecified sleep apnea no machi ne Heart murmur Heartburn Headache(784.0) Syncope and collapse Diabetes mellitus (HCC) Encounter for blood transfusion Depression Social History Tobacco Use Types Packs/Day Years Used Date Smoking Tobacco: Never Smokeless Tobacco: Never Alcohol Use Standard Drinks/Week Comments No 0 (1 standard drink = 0.6 oz pur e alcohol) Comments No Sex and Gender Information Value Date Recorded Sex Assigned at Not on file Legal Sex Female 11:13 PM EDT Gender Identity Not on file Sexual Orientation Not on file Obstetrics History Last Filed Vital Signs Vital Sign Reading Time Taken Comments Blood Pressure 111/55 03/14/2021 8:44 AM EDT Pulse 66 03/14/2021 8:44 AM EDT Temperature 36.6 ??C (97.9 ??F) 03/14/2021 8:44 AM ED T Respiratory Rate 16 03/14/2021 8:44 AM EDT Oxygen Saturation 94% 03/14/2021 8:44 AM EDT Inhaled Oxygen Concentration - - Weight 75.9 kg (167 lb 5.3 oz) 03/06/2021 8:38 P M EDT Height 152.4 cm (5') 03/05/2021 6:28 PM EDT Body Mass Index 32.68 03/05/2021 6:28 PM EDT Plan of Treatment Health Maintenance Due Date Last Done Comments Annual Wellness Exam 1962 Pneumococcal Vaccine 0-64 (1 of 2 - PCV) 1966 Diabetic Eye Exam 1978 Hepatitis C Screening 1978 Cervical Cancer Screening 1981 Pap Smear 1981 HPV/Pap Cotest 1990 Cologuard 2005 Colon Cancer Screening 2005 Colonoscopy 2005 FIT 2005 Sigmoidoscopy 2005 Virtual Colonography 2005 Zoster (1 of 2) 2010 Lipids 12/30/2017 12/30/2016, 10/01/2016, 04/12/2016 RSV or 60+ (1 - Ris k 60-74 years 1-dose series) 2020 DTaP/TDaP/Td (1 - Tdap) 02/01/2021 01/31/2021 Hemoglobin A1c 09/03/2021 03/05/2021, 03/08, 12/30/2016, Additional history exists Microalbuminuria 03/06/2022 03/06/2021 COVID-19 Vaccine ( - 2023-2 5 season) 2024 Influenza Vaccine (#1) 2024 Breast Cancer Screening 12/07/2025 12/08/2023 Hepatitis B Vaccine Aged Out No longe r eligible based on patient's age to complete this topic Procedures Procedure Name Priority Date/Time Associated Diagnosis Comments MM MAMMO DIGITAL MICHEAL SCREEN BILAT Routine 12/08/2023 11:07 AM EDT Encounter for screening mammogram for malignant neoplasm of breast MICROALBUMIN/CREATIN INE RATIO URINE Routine 03/06/2021 9:35 AM EDT HEMOGLOBIN A1C Routine 03/05/2021 10:01 PM EDT LIPID SCREEN Routine 12/30/2016 12:14 AM EDT from Last 3 Months or Most Recently Relevant to Health Maintenance Results * MM MAMMO DIGITAL MICHEAL SCREEN BILAT (12/08/2023 11:07 AM EDT) Anatomical Region Laterality Modality Breast Bilateral Mammography 12/09/2023 9:18 AM EDT Impressions 12/09/2023 9:18 AM EDT Negative ??([id number]) ~ RECOMMENDATION: Routine screening mammogram in 1 [...] the next mammogram, in accordance with the [employer] and the Society of Breast Imaging recommendations. Narrative 12/09/2023 9:18 AM EDT Procedure:MM MAMMO DIGITAL MICHEAL SCREEN BILAT ~ Reason for exam: screening, asymptomatic. Z12.31-Encounter for screening mammogram for malignant neoplasm of [id number] ~ MM MAMMO DIGITAL MICHEAL SCREEN BILAT [...] for screening mammogram for malignant neoplasm of [id number] ~ MM MAMMO DIGITAL MICHEAL SCREEN BILAT Bilateral CC and MLO view(s) were taken. The breast tissue is heterogeneously dense. This may lower thesensitivity of mammography. Prior study comparison: None. This is a baseline mammogram. No mammographic evidence of malignancy. ~ IMPRESSION: Negative ([id number]) ~ RECOMMENDATION: Routine screening mammogram in 1 [...] the next mammogram, in accordance with the [place] and the Society of Breast Imaging recommendations. Lupillo Garcia MD IMG MAMMOGRAPHY ORDERABLES Final Result * (ABNORMAL) MICROALBUMIN/CREATININE RATIO URINE (03/06/2021 9:35 AM EDT) Urine Microalb 91.0 mg/L 03/06/2021 3:54 PM EDT PREFERRED [facility], [facility] Urine Creatinine 80.1 mg/dL 03/06/2021 3:54 PM EDT [facility], [facility] Ur Microalb/Creat 114(H) 0 - 30 mg/g 03/06/2021 3:54 PM EDT [facility], [facility] Urine URINE SPECIMEN COLLECTION / Unknown 03/06/2021 9:35 AM EDT 03/06/2021 9:47 AM EDT us Leonardo Zepeda MD (Ronny) URINE ORDERABLE S Final Result Performing Organization Address [facility] Co de Phone Number [facility], [address] , [place] [address] * (ABNORMAL) HEMOGLOBIN A1C (03/05/2021 10:01 PM EDT) Hgb A1C 6.8(H) 4.2 - 5.6 % 03/05/2021 10:31 PM EDT [facility], [facility] Est. Avg Glucose 148 mg/dL 03/05/2021 10:31 PM EDT [facility], [facility] Blood VENOUS BLOOD / Unknown Venipuncture / Unknown 03/05/2021 10:01 PM EDT 03/05/2021 10:10 PM EDT Narrative [facility] [employer] [facility] - 03/05/2021 10:31 PM EDT REFERENCE RANGE: Normal: 4.0-5.6% Pre-diabetes: 5.7-6.4% Provisional diagnosis of diabetes: >6.4% Hgb F>10% and anything which shortens red cell survival, such as hemolytic anemia, or unstable hemoglobin variants such as HbSS, HbSC, or HbCC, will lower the HbA1c value associated with a given level of glycemic control. ? us Leonardo Zepeda MD (Ronny) CHEMISTRY ORDER [place] Final Result Performing Organization Address [facility] Co de Phone Number [facility], [address] , [place] [address] * (ABNORMAL) LIPID SCREEN (12/30/2016 12:14 AM EDT) Cholesterol 167 <=200 mg/dL [facility] Comment: < 200 ?Desirable 200 - 239 ? Borderline High >= 240 ?High Triglyceride 264(H) <=150 mg/dL [facility] Comment: < 150 ? Normal 150 - 199 ?Borderline High 200 - 499 ?High ??>= 500 ? Very High HDL 20(L) >=40 mg/dL [facility] Comment: ?? > 60 ?Optimal 40 - 60 ?Acceptable ?? < 40 ?Low LDL Calculated 94 <=100 mg/dL [facility] Comment: ??< 100 ?Optimal 100 - 129 ? Near or above optimal 130 - 159 ? Borderline High 160 - 189 ? High >= 190 ?Very High Blood specimen (specimen) UPPER LIMB STRUCTURE / Unknown 12/30/2016 12:14 AM EDT 12/30/2016 5:15 AM EDT us Jarad Harvey MD CHEMISTRY ORDERABLES Edited Res ult - Final Performing Organization Address City/State/[facility] Co de Phone Number [facility] [address] [place] [address] from Last 3 Months or Most Recently Relevant to Health Maintenance Insurance [facility] [id number] [employer] [address] [employer] OF [address] Advance Directives For more information, please contact: [phone] * Full Code (Latest Code Status on File) Date Activated Date Inactivated Comments 03/05/2021 7:26 PM 03/14/2021 3:00 PM * Full Code Date Activated Date Inactivated Comments 12/29/2016 9:43 PM 12/30/2016 11:10 PM Care Teams Production Welding Supervisor Relationship Specialty Start Date End Date Lupillo Garcia MD PCP - General Family Medicine 11/10/12
--- OUTSIDE RECORDS SUMMARY | 2024-06-22 10:19 | XMS_ITS | Encounter Summary ---
Author Organization [facility] Address [address] [id number] Care Team Providers Care Rn Family Name Role Phone Unavailable Primary Care Provider Unavailabl e Encounter Details Date Type Department Care Team (Latest Contact Info) Description 08/26/2017 6:30 AM EST - 09/05/2017 1:50 PM [facility] Hospital Encounter [facility] S Inpatient [address] [place] [address] Missael Tang MD [address] [address] Incisional hernia without obstruction or gangrene Social History Tobacco Use Types Packs/Day Years Used Date Smoking Tobacco: Never Assessed Comments Unknown Sex and Gender Information Value Date Recorded Sex Assigned at Not on file Legal Sex Female 8:29 PM EDT Gender Identity Not on file Sexual Orientation Not on file documented as of this encounter Miscellaneous Notes * Discharge Summary - Panfilo Arreola MD - 09/05/2017 12:00 AM EST HOSPITALIZATION: Admit Date:26-Aug-2017 Discharge Date:05-Sep-2017 Discharge Atttending Julián MEEKS, Missael Hi Primary Care Physician Layton Cordero Admitting DiagnosisVentral hernia without obstruction or gangrene DISCHARGE DIAGNOSIS: * Discharge Diagnosis 1Ventral hernia Reason for Hospitalization This is a 57-year-old woman who presented to [facility] with a ventral incisional hernia. She had the bulge in her upper abdomen since her last surgery in 2009 and reported a ventral hernia repair with mesh at that time. She reported pain at the hernia site ever since that time. She had difficulty eating due to nausea and vomiting and significant pain. Her prior surgeon had told her that she would not be a candidate for hernia repair by him. She presented to [facility] in consultation for hernia repair. The risks, benefits, alternatives to surgical intervention were explained to the patient. She elected to proceed to the operating room. HOSPITAL COURSE: Hospital Course Patient arrived on 08/26/17 for scheduled surgery (ventral incisional hernia repair). Patient tolerated the procedure without complication, was extubated in the operating room, and transferred to the PACU for recovery from anesthesia. Shortly thereafter, patient was transferred to the floor for recovery. It was felt that the patient had reached maximal benefit from hospitalization deemed ready fordischarge on 09/05. On day of discharge patient was afebrile, tolerating regular diet, ambulating, voiding spontaneously, and pain was well controlled with PO meds. The patient was discharged in stablecondition and will follow up with Dr. Tang in 2 week. Physical exam on day of discharge GEN - no acute distress HEENT - normocephalic, atraumatic CV - hemodynamically stable PULM - without signs of respiratory distress, normal work of breathing ABD - soft, appropriately tender, nondistended, incision healing clean dry and itact SKIN - without lesions NEURO - normal reactivity for age DIAGNOSTIC AND PROCEDURAL EVENTS: - 08/26/17: 1. Ventral incisional hernia repair, recurrent ventral incisional hernia. 2. Myocutaneous flap creation to allow for tension-free repair. 3. Removal of prior mesh implant. DISCHARGE INFORMATION: DispositionHome Discharge Conditionstable (signs or symptoms of potential problems absent or manageable) Discharge Medicationsaspirin 325 mg oral tablet; 1 tab(s) orally once a day Basaglar KwikPen 100 units/mL subcutaneous solution; subcutaneous 2 times a day 15 units in am 20 units at lunch buPROPion 150 mg/12 hours (SR) oral tablet, [...] tablet; 1 tab(s) orally once a day methocarbamol 500 mg oral tablet; 1 tab(s) orally every 8 hours metoprolol tartrate 25 mg oral tablet; 1 tab(s) orally 2 times a day niacin 500 mg oral tablet; 1 tab(s) orally once a day (at bedtime) oxyCODONE 5 mg oral tablet; 1 tab(s) orally every 4 hours, As needed, Pain unresponsive to other medications/interventions. Hold for sedation. Premarin 0.3 mg oral tablet; 1 tab(s) orally once a day promethazine 25 mg oral tablet; 1 tab(s) orally every 6 hours, As Needed raNITIdine 150 mg oral capsule; 1 cap(s) orally 2 times a day scopolamine 1.5 mg transdermal film, extended release; 1 patch transdermal every 3 days senna 17.2 mg oral tablet; 2 tab(s) orally once a day (at bedtime) spironolactone 25 mg oral tablet; 1 tab(s) orally once a day tiZANidine 4 mg oral tablet; 1 tab(s) orally 1 to 2 times a day, As Needed topiramate 100 mg oral tablet; 1 tab(s) orally 2 times a day Pending ResultsNo Pending Results DISCHARGE INSTRUCTIONS: Diet: Follow the Healthy Heart Diet (See instructions in your patient education handouts). Work towards or maintain a healthy weight. Lifting: No lifting more than 10 for 42 days. Activity: move around as you are able and do not drive while taking narcotic pain medications. Assistive Device: Continue to ambulate at least 3 times a day, at least 300ft each time. Continue to use your incentive spirometer- 10 puffs per hour. Wound or Incision Care: Wash your wound with mild soap and water once a day; pat dry; do not rub. Reason to call: feels warm or hot to the touch, is red or dark pink, is tight or swollen and looks shiny, becomes more tender or sore to the touch, wound smells bad and wound is draining pus, bleeding or coming open. Special Wound/Incision Care Instructions: Continue drain care as taught in hospital: strip drain 2x/day and record output daily. Bathing: Other: You can shower and wash your hair. Allow water and antibacterial soap (dial or equivalent) to run over the incision, but do not submerge, rub, or scrub the area. Be sure to pat dry incision after exiting the shower. Instructed patient to call if: Temperature is above 101.4. You are throwing up or have diarrhea for more than 24 hours. Medication Instructions: Take Medication exactly as instructed. Do not take any medications that have not been ordered for This means do not take other people's medication, illegal drugs or substances, or even more aspirin than has been ordered. Additional Instructions: Please take a stool softener such as docuaste-senna while on narcotic painmedications. If you have not had a bowel movement in 2-3 days, please add an [id number] laxative or suppository, such as miralax and bisacodyl. Recommended Follow Up Instructions: Follow Up Instructions: Follow up with: in/on Sep 25 2017 2:45PM. - Address/Phone Number: [address] [facility] [address] [phone]. 9900 pm. ATTESTATION: Attending Attestation: I have discussed the case with the resident and agree with the findings and plan as documented. Electronic Signatures: Panfilo Arreola MD (Attending) (Signed 05-Sep-17 16:21) Authored: ATTESTATION Co-Signer: HOSPITALIZATION, DISCHARGE DIAGNOSIS, HOSPITAL COURSE, DIAGNOSTIC AND PROCEDURAL EVENTS,DISCHARGE INFORMATION, DISCHARGE INSTRUCTIONS, Recommended Follow Up Instructions Josh Severino MD (Resident) (Signed 05-Sep-17 09:49) Authored: HOSPITALIZATION, DISCHARGE DIAGNOSIS, HOSPITAL COURSE, DIAGNOSTIC AND PROCEDURAL EVENTS, DISCHARGE INFORMATION, DISCHARGE INSTRUCTIONS, Recommended Follow Up Instructions Last Updated: 05-Sep-17 16:21 by Panfilo Arreola MD (Attending) * Op Note - Provider, MD Sanjuana - 08/26/2017 12:00 AM EST [place], [place] OPERATIVE REPORT Patient Name: TYRA GRECO Hospital Number: [id number] Date of : 1960 Date of Admission: 08/26/2017 Date of Procedure: 08/26/2017 Attending Physician: MISSAEL TANG MD Patient Location: [address] [place] [address] A PREOPERATIVE DIAGNOSIS: Recurrent reoperative ventral hernia. POSTOPERATIVE DIAGNOSIS: Recurrent reoperative ventral hernia. PROCEDURE PERFORMED: Open repair of recurrent ventral incisional hernia. PROCEDURES PERFORMED: 1. Ventral incisional hernia repair, recurrent ventral incisional hernia. 2. Myocutaneous flap creation to allow for tension-free repair. 3. Removal of prior mesh implant. SURGEONS: Missael Tang MD, Attending. TITLE I MATH TUTOR: Rizwan Chambers MD. INDICATIONS: This is a 57-year-old woman who presented to [facility] with a ventral incisional hernia. She had the bulge in her upper abdomen since her last surgery in 2009 and reported a ventral hernia repair with mesh at that time. She reported pain at the hernia site ever since that time. She had difficulty eating due to nausea and vomiting and significant pain. Her prior surgeon had told her that she would not be a candidate for hernia repair by him. She presented to [facility] in consultation for hernia repair. The risks, benefits, alternatives to surgical intervention were explained to the patient. She elected to proceed to the operating room. DESCRIPTION OF PROCEDURE: The patient was identified in the preoperative holding area, where consent was confirmed. The patient was then brought back to the operating room and placed supine on the operating room table. SCDs were applied and turned on. Preoperative antibiotics were given. Subcutaneous heparin was given in preoperative holding. General anesthesia was induced with general endotracheal anesthesia. When this was performed, the patient was prepped and draped in normal sterile fashion. An operative time-out was performed to ensure the correct patient, procedure, laterality. When this was completed, we continued with the operation. A midline incision extending from 3 cm below the xiphoid was extended down to 10 cm above the pubis through her prior surgical scar. Tissue was then dissected down to the anterior fascia. Old mesh was encountered at this time, and a hernia sac was evident superior to the mesh, as well as inferior to her umbilicus and another in the midline. The peritoneum of the sac was entered and the contents were reduced. At this time, we incised the anterior fascia and extended it the length of the incision, where the hernia defects were visible. We decided to get into the retrorectus plane. The posterior rectus sheath was incised at its medial border and dissected the rectus muscle from the posterior rectus sheath along with its entire border of the incisiona nd lateral to the lateral edge of the rectus muscle. The inferior epigastric vessels were identified during the dissection and avoided. We dissected the rectus abdominis muscle in its entire length from pubis to the costal margin. This was repeated on the contralateral side as well. With the posterior fascia exposed, it became evident that she would require further dissection to allow a tension free closure so we decided to perform a TAR. The posterior fascia was incisied just medial to its latera; attachment to the rectus muscle. The underlying transversalis muscle ws divided and the muscle was bluntly from the underlying fascia. This free the movement of the anterior fascia by several centimeters, to allow a tension free closure. When we attempted to dissect the transversus abdominis from the transversalis fascia, the transversalis fascia was quite tenuous and easily torn. Attempts were made to close these with Vicryl suture; however, it caused the fascia and peritoneum to further tear. Also, the majority of the posterior sheath was adhered to her prior mesh which we decided needed to be removed for concern of infection. The old mesh was removed with electrocautery dissection,. It was determined at this time that we would require a Vicryl mesh to bridge between the posterior compartments. . A 12 x 12 inch piece of Vicryl mesh was brought onto the field and introduced into the abdomen. This was sutured in a running fashion with a 0 Vicryl suture from superior to inferior aspect, circumferentially around the mesh. Below the mesh sat a large pad of omentum that protected the bowel from the mesh. Prior to completing implantation of the Vicryl mesh, a full sharp, sponge, and instrument count was performed and accurate. With Vicryl mesh in place and the myocutaneous flaps created, we inserted a 26 x 36 cm piece of Bard mesh, polypropylene mesh. This was attached with transfascial sutures to the anterior fascia performed with the use of Reverdin needles and 0 PDS suture. The mesh was first tacked at the superior aspect, just below the xiphoid process. We then placed the mesh in the left upper and right upper quadrants and trimmed them to size. These were tacked again with 0 PDS suture. We extended these down the abdominal wall on the left and right side, with 7 cm overlap between the anterior sheath and the mesh. Inferiorly, we sutured the mesh to the pubic tubercle as well as through the skin in the same manner as the others. The 4 corners were cut to size to allow for proper fitting along the costal margins and pelvic bones. The mesh was again checked for proper fit prior to tying the sutures down to the skin. There was at least 5 cm overlap in all directions. At this point, we copiously irrigated the wound and suctioned dry. Hemostasis was ensured with Bovie electrocautery. Two small vessels required suture ligation and were hemostatic at the end of the procedure. With the mesh in place and sufficiently secured, we then closed anterior fascia over top of the mesh. This was done with running looped 0 PDS from the superior and inferior aspects of the wound. Prior to closure of the anterior fascia, a flat Johnathan drain was placed below the fascia, above the mesh, and taken out through the right upper quadrant. After the fascia was closed, another flat Johnathan drain was placed on top of the closure and taken out through the left upper quadrant. Dermal tissue was reapproximated with 3-0 Vicryl suture. Skin was closed with running 4-0 Monocryl. Drains were secured in place with nylon suture. The wound was cleaned with a wet and dry lap and Dermabond applied to the Reverdin needle poke holes. All sponge, sharps, instrument counts were correct at the end of the case. Dr. Tang was scrubbed and present for all portions of the procedure. The patient was extubated in the operating room and taken to the postanesthesia care unit in stable condition. Electronically Signed By: MISSAEL TANG MD 08/27/2017 10:51 A MISSAEL TANG MD Attending Surgeon, SURGERY Dictated By: RIZWAN CHAMBERS MD 08/27/2017 11:06 A RIZWAN CHAMBERS MD Dictating Provider, SURGERY ROXANE/wmx Dictated Date/Time: 08/26/2017 17:35 Concrete Form Setter Date/Time: 08/26/2017 18:46 Document Number: [id number] Job Number: [id number] REFERRING PHYSICIAN: PRIMARY CARE PHYSICIAN: LAYTON WELDON MD [facility] [address] [place] [id number] NON- REFERRING PHYSICIAN: DICTATED CC: Document is Signed NOTE: supplied by interface documented in this encounter Plan of Treatment Not on file documented as of this encounter Procedures Procedure Name Priority Date/Time Associated Diagnosis Comments GLUCOSE POINT OF CARE DC Routine 09/05/2017 11:19 AM EST GLUCOSE POINT OF CARE DC Routine 09/05/2017 7:23 AM EST GLUCOSE POINT OF CARE DC Routine 09/05/2017 2:45 AM EST GLUCOSE POINT OF CARE DC Routine 09/04/2017 8:21 PM EST GLUCOSE POINT OF CARE DC Routine 09/04/2017 4:03 PM EST GLUCOSE POINT OF CARE DC Routine 09/04/2017 11:31 AM EST GLUCOSE POINT OF CARE DC Routine 09/04/2017 8:08 AM EST GLUCOSE POINT OF CARE DC Routine 09/03/2017 8:53 PM EST GLUCOSE POINT OF CARE DC Routine 09/03/2017 5:05 PM EST GLUCOSE POINT OF CARE DC Routine 09/03/2017 11:38 AM EST GLUCOSE POINT OF CARE DC Routine 09/03/2017 8:00 AM EST GLUCOSE POINT OF CARE DC Routine 09/02/2017 9:05 PM EST GLUCOSE POINT OF CARE DC Routine 09/02/2017 4:49 PM EST GLUCOSE POINT OF CARE DC Routine 09/02/2017 12:10 PM EST GLUCOSE POINT OF CARE DC Routine 09/02/2017 7:45 AM EST GLUCOSE POINT OF CARE DC Routine 09/01/2017 8:17 PM EST GLUCOSE POINT OF CARE DC Routine 09/01/2017 4:20 PM EST GLUCOSE POINT OF CARE DC Routine 09/01/2017 11:23 AM EST GLUCOSE POINT OF CARE DC Routine 09/01/2017 7:21 AM EST GLUCOSE POINT OF CARE DC Routine 08/31/2017 8:46 PM EST GLUCOSE POINT OF CARE DC Routine 08/31/2017 5:30 PM EST GLUCOSE POINT OF CARE DC Routine 08/31/2017 12:01 PM EST GLUCOSE POINT OF CARE DC Routine 08/31/2017 8:33 AM EST GLUCOSE POINT OF CARE DC Routine 08/30/2017 8:14 PM EST TROPONIN T 6 HR DATA CONVERSION Timed 08/30/2017 5:13 PM EST GLUCOSE POINT OF CARE DC Routine 08/30/2017 3:47 PM EST TROPONIN T 3 HR DATA CONVERSION Timed 08/30/2017 2:34 PM EST XR CHEST 1 VIEW Routine 08/30/2017 12:12 PM EST TROPONIN T BASELINE DC STAT 08/30/2017 12:08 PM EST CBC W/O DIFFERENTIAL STAT 08/30/2017 12:08 PM EST BASIC METABOLIC PANEL, PLASMA STAT 08/30/2017 12:08 PM EST GLUCOSE POINT OF CARE DC Routine 08/30/2017 11:36 AM EST GLUCOSE POINT OF CARE DC Routine 08/30/2017 7:38 AM EST BASIC METABOLIC PANEL, PLASMA Timed 08/30/2017 5:25 AM EST GLUCOSE POINT OF CARE DC Routine 08/29/2017 8:20 PM EST GLUCOSE POINT OF CARE DC Routine 08/29/2017 3:22 PM EST GLUCOSE POINT OF CARE DC Routine 08/29/2017 10:45 AM EST GLUCOSE POINT OF CARE DC Routine 08/29/2017 7:27 AM EST BASIC METABOLIC PANEL, PLASMA Timed 08/29/2017 4:49 AM EST GLUCOSE POINT OF CARE DC Routine 08/28/2017 9:22 PM EST GLUCOSE POINT OF CARE DC Routine 08/28/2017 3:53 PM EST GLUCOSE POINT OF CARE DC Routine 08/28/2017 10:54 AM EST GLUCOSE POINT OF CARE DC Routine 08/28/2017 7:59 AM EST PHOSPHORUS, PLASMA Timed 08/28/2017 5: 53 AM EST MAGNESIUM, PLASMA Timed 08/28/2017 5:5 3 AM EST BASIC METABOLIC PANEL, PLASMA Timed 08/28/2017 5:53 AM EST GLUCOSE POINT OF CARE DC Routine 08/27/2017 9:29 PM EST GLUCOSE POINT OF CARE DC Routine 08/27/2017 4:19 PM EST GLUCOSE POINT OF CARE DC Routine 08/27/2017 11:21 AM EST GLUCOSE POINT OF CARE DC Routine 08/27/2017 7:45 AM EST CBC W/O DIFFERENTIAL Timed 08/27/2017 5:22 AM EST PHOSPHORUS, PLASMA Timed 08/27/2017 5: 22 AM EST MAGNESIUM, PLASMA Timed 08/27/2017 5:2 2 AM EST BASIC METABOLIC PANEL, PLASMA Timed 08/27/2017 5:22 AM EST GLUCOSE POINT OF CARE DC Routine 08/26/2017 9:33 PM EST GLUCOSE POINT OF CARE DC Routine 08/26/2017 3:49 PM EST GLUCOSE POINT OF CARE DC Routine 08/26/2017 8:38 AM EST documented in this encounter Results * (ABNORMAL) Glucose Point of Care. (09/05/2017 11:19 AM EST) POCT Glucose 254(H) 74 - 99 mg/dL SUNQUEST Comment:Whole Blood 09/05/2017 11:1 9 AM EST 09/05/2017 11:21 AM EST Missael Tang MD LAB BLOOD ORDERABLES Rula l Result Performing Organization Address [facility] de Phone Number SUNQUEST * (ABNORMAL) Glucose Point of Care. (09/05/2017 7:23 AM EST) POCT Glucose 190(H) 74 - 99 mg/dL SUNQUEST Comment:Whole Blood 09/05/2017 7:23 AM EST 09/05/2017 7:21 AM EST Missael Tang MD LAB BLOOD ORDERABLES Rula l Result Performing Organization Address [facility] Co de Phone Number SUNQUEST * (ABNORMAL) Glucose Point of Care. (09/05/2017 2:45 AM EST) POCT Glucose 225(H) 74 - 99 mg/dL SUNQUEST Comment:Whole Blood 09/05/2017 2:45 AM EST 09/05/2017 3:11 AM EST Missael Tang MD LAB BLOOD ORDERABLES Rula l Result Performing Organization Address [facility] Co de Phone Number SUNQUEST * (ABNORMAL) Glucose Point of Care. (09/04/2017 8:21 PM EST) POCT Glucose 262(H) 74 - 99 mg/dL SUNQUEST Comment:Whole Blood 09/04/2017 8:21 PM EST 09/04/2017 8:26 PM EST Missael Tang MD LAB BLOOD ORDERABLES Rula l Result Performing Organization Address [facility] de Phone Number SUNQUEST * (ABNORMAL) Glucose Point of Care. (09/04/2017 4:03 PM EST) POCT Glucose 182(H) 74 - 99 mg/dL SUNQUEST Comment:Whole Blood 09/04/2017 4:03 PM EST 09/04/2017 4:51 PM EST Missael Tang MD LAB BLOOD ORDERABLES Rula l Result Performing Organization Address [facility] de Phone Number SUNQUEST * (ABNORMAL) Glucose Point of Care. (09/04/2017 11:31 AM EST) POCT Glucose 254(H) 74 - 99 mg/dL SUNQUEST Comment:Whole Blood 09/04/2017 11:3 1 AM EST 09/04/2017 11:32 AM EST Missael Tang MD LAB BLOOD ORDERABLES Rula l Result Performing Organization Address [facility] Co de Phone Number SUNQUEST * (ABNORMAL) Glucose Point of Care. (09/04/2017 8:08 AM EST) POCT Glucose 184(H) 74 - 99 mg/dL SUNQUEST Comment:Whole Blood 09/04/2017 8:08 AM EST 09/04/2017 8:16 AM EST Missael Tang MD LAB BLOOD ORDERABLES Rula l Result Performing Organization Address [facility] Phone Number SUNQUEST * (ABNORMAL) Glucose Point of Care. (09/03/2017 8:53 PM EST) POCT Glucose 199(H) 74 - 99 mg/dL SUNQUEST Comment:Whole Blood 09/03/2017 8:53 PM EST 09/03/2017 8:56 PM EST Missael Tang MD LAB BLOOD ORDERABLES Rula l Result Performing Organization Address [facility] Phone Number SUNQUEST * (ABNORMAL) Glucose Point of Care. (09/03/2017 5:05 PM EST) POCT Glucose 187(H) 74 - 99 mg/dL SUNQUEST Comment:Whole Blood 09/03/2017 5:05 PM EST 09/03/2017 5:16 PM EST Missael Tang MD LAB BLOOD ORDERABLES Rula l Result Performing Organization Address [facility] Phone Number SUNQUEST * (ABNORMAL) Glucose Point of Care. (09/03/2017 11:38 AM EST) POCT Glucose 188(H) 74 - 99 mg/dL SUNQUEST Comment:Whole Blood 09/03/2017 11:3 8 AM EST 09/03/2017 11:57 AM EST Missael Tang MD LAB BLOOD ORDERABLES Rula l Result Performing Organization Address [facility] Phone Number SUNQUEST * (ABNORMAL) Glucose Point of Care. (09/03/2017 8:00 AM EST) POCT Glucose 165(H) 74 - 99 mg/dL SUNQUEST Comment:Whole Blood 09/03/2017 8:00 AM EST 09/03/2017 8:01 AM EST Missael Tang MD LAB BLOOD ORDERABLES Rula l Result Performing Organization Address [facility] Phone Number SUNQUEST * (ABNORMAL) Glucose Point of Care. (09/02/2017 9:05 PM EST) POCT Glucose 163(H) 74 - 99 mg/dL SUNQUEST Comment:Whole Blood 09/02/2017 9:05 PM EST 09/02/2017 9:06 PM EST Missael Tang MD LAB BLOOD ORDERABLES Rula l Result Performing Organization Address [facility] Phone Number SUNQUEST * (ABNORMAL) Glucose Point of Care. (09/02/2017 4:49 PM EST) POCT Glucose 182(H) 74 - 99 mg/dL SUNQUEST Comment:Whole Blood 09/02/2017 4:49 PM EST 09/02/2017 4:46 PM EST Missael Tang MD LAB BLOOD ORDERABLES Rula l Result Performing Organization Address [facility] Phone Number SUNQUEST * (ABNORMAL) Glucose Point of Care. (09/02/2017 12:10 PM EST) POCT Glucose 173(H) 74 - 99 mg/dL SUNQUEST Comment:Whole Blood 09/02/2017 12:1 0 PM EST 09/02/2017 3:11 PM EST Missael Tang MD LAB BLOOD ORDERABLES Rula l Result Performing Organization Address [facility] Phone Number SUNQUEST * (ABNORMAL) Glucose Point of Care. (09/02/2017 7:45 AM EST) POCT Glucose 155(H) 74 - 99 mg/dL SUNQUEST Comment:Whole Blood 09/02/2017 7:45 AM EST 09/02/2017 7:46 AM EST Missael Tang MD LAB BLOOD ORDERABLES Rula l Result Performing Organization Address [facility] Co de Phone Number SUNQUEST * (ABNORMAL) Glucose Point of Care. (09/01/2017 8:17 PM EST) POCT Glucose 174(H) 74 - 99 mg/dL SUNQUEST Comment:Whole Blood 09/01/2017 8:17 PM EST 09/01/2017 8:16 PM EST Missael Tang MD LAB BLOOD ORDERABLES Rula l Result Performing Organization Address [facility] Phone Number SUNQUEST * (ABNORMAL) Glucose Point of Care. (09/01/2017 4:20 PM EST) POCT Glucose 187(H) 74 - 99 mg/dL SUNQUEST Comment:Whole Blood 09/01/2017 4:20 PM EST 09/01/2017 4:21 PM EST Missael Tang MD LAB BLOOD ORDERABLES Rula l Result Performing Organization Address [facility] Phone Number SUNQUEST * (ABNORMAL) Glucose Point of Care. (09/01/2017 11:23 AM EST) POCT Glucose 172(H) 74 - 99 mg/dL SUNQUEST Comment:Whole Blood 09/01/2017 11:2 3 AM EST 09/01/2017 11:21 AM EST Missael Tang MD LAB BLOOD ORDERABLES Rula l Result Performing Organization Address [facility] Co de Phone Number SUNQUEST * (ABNORMAL) Glucose Point of Care. (09/01/2017 7:21 AM EST) POCT Glucose 149(H) 74 - 99 mg/dL SUNQUEST Comment:Whole Blood 09/01/2017 7:21 AM EST 09/01/2017 7:22 AM EST Missael Tang MD LAB BLOOD ORDERABLES Rula l Result Performing Organization Address [facility] Co md Phone Number SUNQUEST * (ABNORMAL) Glucose Point of Care. (08/31/2017 8:46 PM EST) POCT Glucose 187(H) 74 - 99 mg/dL SUNQUEST Comment:Whole Blood 08/31/2017 8:46 PM EST 08/31/2017 8:47 PM EST Missael Tang MD LAB BLOOD ORDERABLES Rula l Result Performing Organization Address [facility] Phone Number SUNQUEST * (ABNORMAL) Glucose Point of Care. (08/31/2017 5:30 PM EST) POCT Glucose 302(H) 74 - 99 mg/dL SUNQUEST Comment:Whole Blood 08/31/2017 5:30 PM EST 08/31/2017 5:31 PM EST Missael Tang MD LAB BLOOD ORDERABLES Rula l Result Performing Organization Address [facility] Phone Number SUNQUEST * (ABNORMAL) Glucose Point of Care. (08/31/2017 12:01 PM EST) POCT Glucose 185(H) 74 - 99 mg/dL SUNQUEST Comment:Whole Blood 08/31/2017 12:0 1 PM EST 08/31/2017 12:02 PM EST Missael Tang MD LAB BLOOD ORDERABLES Rula l Result Performing Organization Address [facility] Co de Phone Number SUNQUEST * (ABNORMAL) Glucose Point of Care. (08/31/2017 8:33 AM EST) POCT Glucose 200(H) 74 - 99 mg/dL SUNQUEST Comment:Whole Blood 08/31/2017 8:33 AM EST 08/31/2017 8:31 AM EST Missael Tang MD LAB BLOOD ORDERABLES Rula l Result Performing Organization Address [facility] Co de Phone Number SUNQUEST * (ABNORMAL) Glucose Point of Care. (08/30/2017 8:14 PM EST) POCT Glucose 189(H) 74 - 99 mg/dL SUNQUEST Comment:Whole Blood 08/30/2017 8:14 PM EST 08/30/2017 8:11 PM EST Missael Tang MD LAB BLOOD ORDERABLES Rula l Result Performing Organization Address [facility] Co de Phone Number SUNQUEST * Troponin T 6 Hour (08/30/2017 5:13 PM EST) Troponin T <0.010 <0.010 ng/mL SUNQUEST 6 Hour Delta Data Conversion Not significant. No acute change in troponin observed (from baseline). Chronic elevations are highly prognostic. SUNQUEST 08/30/2017 5:13 PM EST 08/30/2017 5:27 PM EST Result [facility] Sanjuana Blair MD LAB URINE ORDERABLES Rula l Result Performing Organization Address [facility] Co de Phone Number SUNQUEST * (ABNORMAL) Glucose Point of Care. (08/30/2017 3:47 PM EST) POCT Glucose 170(H) 74 - 99 mg/dL SUNQUEST Comment:Whole Blood 08/30/2017 3:47 PM EST 08/30/2017 3:46 PM EST Missael Tang MD LAB BLOOD ORDERABLES Rula l Result Performing Organization Address City/[facility]/ZIP Co de Phone Number SUNQUEST * Troponin T 3 Hour (08/30/2017 2:34 PM EST) Troponin T <0.010 <0.010 ng/mL SUNQUEST 3 Hour Delta Not significant. No acute change in troponin observed (from baseline). Chronic elevations are highly prognostic. SUNQUEST 08/30/2017 2:34 PM EST 08/30/2017 2:59 PM EST us Historical Provider LAB URINE ORDERABLES Rula l Result JOSE * XR Chest 1 View (08/30/2017 12:12 PM EST) Anatomical Region Laterality Modality Chest Radiographic Hailey ging Narrative 08/30/2017 12:39 PM EST REQUESTING PHYSICIAN: MISSAEL TANG REASON FOR EXAMINATION/PROCEDURE: RAD PDP:Y ??* ??new onset chest pain EXAMINATION / PROCEDURE: CHEST 1 VIEW PA/AP PORTABLE Aug 30 2017 - 12:12; ?? CLINICAL INDICATION: RAD PDP:Y ??* ??new onset chest pain TECHNIQUE: CHEST 1 VIEW PA/AP PORTABLE COMPARISON: None. FINDINGS: Lungs are hypoinflated. Bibasal atelectasis. No definite effusions. No acute airspace consolidation. Mild cardiac enlargement. ?? IMPRESSION: Hypoinflated lungs. ??Mild cardiac enlargement. No acute findings otherwise. CRITICAL RESULT: ?? No. COMMUNICATION: Per this written report. ?? Verified by: MIGUEL CAMEJO M.D. on Aug 30 2017 12:37P Transcribed by: [facility] on Aug 30 2017 12:37P Dictated by: MIGUEL CAMEJO M.D. on Aug 30 2017 12:37P Procedure Note Miguel Camejo - 10/29/2020 REQUESTING PHYSICIAN: MISSAEL TANG REASON FOR EXAMINATION/PROCEDURE: RAD PDP:Y * new onset chest pain EXAMINATION / PROCEDURE: CHEST 1 VIEW PA/AP PORTABLE Aug 30 2017 - 12:12; CLINICAL INDICATION: RAD PDP:Y * new onset chest pain TECHNIQUE: CHEST 1 VIEW PA/AP PORTABLE COMPARISON: None. FINDINGS: Lungs are hypoinflated. Bibasal atelectasis. No definite effusions. No acute airspace consolidation. Mild cardiac enlargement. IMPRESSION: Hypoinflated lungs. Mild cardiac enlargement. No acute findingsotherwise. CRITICAL RESULT: No. COMMUNICATION: Per this written report. Verified by: MIGUEL CAMEJO M.D. on Aug 30 2017 12:37P Transcribed by: [facility]ITAL[facility] on Aug 30 2017 12:37P Dictated by: MIGUEL CAMEJO M.D. on Aug 30 2017 12:37P Missael Tang MD IMG XR PROCEDURES Final R esult * (ABNORMAL) CBC W/O Differential (08/30/2017 12:08 PM EST) WBC Count 7.9 3.7 - 10.3 k/uL SUNQUEST RBC Count 2.66(L) 3.9 - 5.2 M/uL SUNQUEST HGB 8.8(L) 11.2 - 15.7 g/dL SUNQUEST HCT 25.0(L) 34 - 45 % SUNQUEST Platelet Count 243 155 - 369 k/uL SUNQUEST MCV 94 79 - 98 fL SUNQUEST MCH 33.1(H) 26 - 32 pg SUNQUEST MCHC 35.2 30.7 - 35.5 g/dL SUNQUEST RDW 13.2 12.4 - 14.9 % SUNQUEST MPV 10.7 8.8 - 12.5 fL SUNQUEST NRBC COUNT 1(H) 0 % SUNQUEST 08/30/2017 12:0 8 PM EST 08/30/2017 12:33 PM EST Historical Provider LAB BLOOD ORDERABLES Rula bernard Result SUNQUEST * (ABNORMAL) Basic Metabolic Panel, Plasma (08/30/2017 12:08 PM EST) Glucose, Plasma 206(H) 74 - 99 mg/dL SUNQUEST BUN, Plasma 31(H) 7 - 21 mg/dL SUNQUEST Creatinine, Plasma 1.36(H) 0.60 - 1.10 mg/dL SUNQUEST BUN/Creatinine Ratio 23(H) 8 - 20 SUNQUEST Sodium, Plasma 137 136 - 145 mmol/L SUNQUEST Potassium, Plasma 3.7 3.7 - 4.8 mmol/L SUNQUEST Chloride, Plasma 101 101 - 108 mmol/L SUNQUEST CO2, Plasma 23 22 - 29 mmol/L SUNQUEST Anion Gap 13 6 - 16 mmol/L SUNQUEST Calcium, Plasma 8.4(L) 8.9 - 10.2 mg/dL SUNQUEST eGFR 40(L) >60 SEE NOTE SUNQUEST eGFR, if AFR/AM 49(L) >60 SEE NOTE SUNQUEST Comment: eGFR = estimated GFR, eGFR units = mL/min/1.73 sq meters Chronic Kidney Disease is considered if eGFR <60 mL/min/1.73 sq meters. Kidney failure is considered if <15 mL/min/1.73 sq meters. eGFR assumes steady state plasma creatinine concentration, not applicable if renal function is rapidly changing or patient is on dialysis. 08/30/2017 12:0 8 PM EST 08/30/2017 12:33 PM EST Result [facility] Historical Provider LAB BLOOD ORDERABLES Rula l Result Performing Organization Address [facility] de Phone Number SUNQUEST * Troponin T Baseline (08/30/2017 12:08 PM EST) Troponin T <0.010 <0.010 ng/mL SUNQUEST 08/30/2017 12:0 8 PM EST 08/30/2017 12:33 PM EST Result [facility] Historical Provider LAB URINE ORDERABLES Rula l Result Performing Organization Address [facility] de Phone Number SUNQUEST * (ABNORMAL) Glucose Point of Care. (08/30/2017 11:36 AM EST) POCT Glucose 192(H) 74 - 99 mg/dL SUNQUEST Comment:Whole Blood 08/30/2017 11:3 6 AM EST 08/30/2017 11:37 AM EST Missael Tang MD LAB BLOOD ORDERABLES Rula l Result Performing Organization Address [facility] de Phone Number SUNQUEST * (ABNORMAL) Glucose Point of Care. (08/30/2017 7:38 AM EST) POCT Glucose 161(H) 74 - 99 mg/dL SUNQUEST Comment:Whole Blood 08/30/2017 7:38 AM EST 08/30/2017 7:36 AM EST Missael Tang MD LAB BLOOD ORDERABLES Rula l Result Performing Organization Address City/[facility]/ZIP Co de Phone Number SUNQUEST * (ABNORMAL) Basic Metabolic Panel, Plasma (08/30/2017 5:25 AM EST) Glucose, Plasma 180(H) 74 - 99 mg/dL SUNQUEST BUN, Plasma 32(H) 7 - 21 mg/dL SUNQUEST Creatinine, Plasma 1.31(H) 0.60 - 1.10 mg/dL SUNQUEST BUN/Creatinine Ratio 24(H) 8 - 20 SUNQUEST Sodium, Plasma 139 136 - 145 mmol/L SUNQUEST Potassium, Plasma 3.9 3.7 - 4.8 mmol/L SUNQUEST Chloride, Plasma 102 101 - 108 mmol/L SUNQUEST CO2, Plasma 24 22 - 29 mmol/L SUNQUEST Anion Gap 13 6 - 16 mmol/L SUNQUEST Calcium, Plasma 8.4(L) 8.9 - 10.2 mg/dL SUNQUEST eGFR 42(L) >60 SEE NOTE SUNQUEST eGFR, if AFR/AM 51(L) >60 SEE NOTE SUNQUEST Comment: eGFR = estimated GFR, eGFR units = mL/min/1.73 sq meters Chronic Kidney Disease is considered if eGFR <60 mL/min/1.73 sq meters. Kidney failure is considered if <15 mL/min/1.73 sq meters. eGFR assumes steady state plasma creatinine concentration, not applicable if renal function is rapidly changing or patient is on dialysis. 08/30/2017 5:25 AM EST 08/30/2017 5:43 AM EST Serena Mcneil MD LAB BLOOD ORDERABLES Final Res ult Performing Organization Address City/[facility]/ZIP Co de Phone Number SUNQUEST * (ABNORMAL) Glucose Point of Care. (08/29/2017 8:20 PM EST) POCT Glucose 132(H) 74 - 99 mg/dL SUNQUEST Comment:Whole Blood 08/29/2017 8:20 PM EST 08/29/2017 8:22 PM EST Missael Tang MD LAB BLOOD ORDERABLES Rula l Result Performing Organization Address [facility] Phone Number SUNQUEST * (ABNORMAL) Glucose Point of Care. (08/29/2017 3:22 PM EST) POCT Glucose 240(H) 74 - 99 mg/dL SUNQUEST Comment:Whole Blood 08/29/2017 3:22 PM EST 08/29/2017 3:21 PM EST Missael Tang MD LAB BLOOD ORDERABLES Rula l Result Performing Organization Address [facility] Phone Number SUNQUEST * (ABNORMAL) Glucose Point of Care. (08/29/2017 10:45 AM EST) POCT Glucose 228(H) 74 - 99 mg/dL SUNQUEST Comment:Whole Blood 08/29/2017 10:4 5 AM EST 08/29/2017 10:46 AM EST Missael Tang MD LAB BLOOD ORDERABLES Rula l Result Performing Organization Address [facility] de Phone Number SUNQUEST * (ABNORMAL) Glucose Point of Care. (08/29/2017 7:27 AM EST) POCT Glucose 158(H) 74 - 99 mg/dL SUNQUEST Comment:Whole Blood 08/29/2017 7:27 AM EST 08/29/2017 7:28 AM EST Missael Tang MD LAB BLOOD ORDERABLES Rula l Result Performing Organization Address [facility] Phone Number SUNQUEST * (ABNORMAL) Basic Metabolic Panel, Plasma (08/29/2017 4:49 AM EST) Glucose, Plasma 161(H) 74 - 99 mg/dL SUNQUEST BUN, Plasma 39(H) 7 - 21 mg/dL SUNQUEST Creatinine, Plasma 1.51(H) 0.60 - 1.10 mg/dL SUNQUEST BUN/Creatinine Ratio 26(H) 8 - 20 SUNQUEST Sodium, Plasma 140 136 - 145 mmol/L SUNQUEST Potassium, Plasma 4.0 3.7 - 4.8 mmol/L SUNQUEST Chloride, Plasma 104 101 - 108 mmol/L SUNQUEST CO2, Plasma 23 22 - 29 mmol/L SUNQUEST Anion Gap 13 6 - 16 mmol/L SUNQUEST Calcium, Plasma 8.6(L) 8.9 - 10.2 mg/dL SUNQUEST eGFR 36(L) >60 SEE NOTE SUNQUEST eGFR, if AFR/AM 43(L) >60 SEE NOTE SUNQUEST Comment: eGFR = estimated GFR, eGFR units = mL/min/1.73 sq meters Chronic Kidney Disease is considered if eGFR <60 mL/min/1.73 sq meters. Kidney failure is considered if <15 mL/min/1.73 sq meters. eGFR assumes steady state plasma creatinine concentration, not applicable if renal function is rapidly changing or patient is on dialysis. 08/29/2017 4:49 AM EST 08/29/2017 5:26 AM EST Serena Mcneil MD LAB BLOOD ORDERABLES Final Res ult Performing Organization Address City/[facility]/ZIP Co de Phone Number SUNQUEST * (ABNORMAL) Glucose Point of Care. (08/28/2017 9:22 PM EST) POCT Glucose 135(H) 74 - 99 mg/dL SUNQUEST Comment:Whole Blood 08/28/2017 9:22 PM EST 08/28/2017 9:21 PM EST Missael Tang MD LAB BLOOD ORDERABLES Rula l Result SUNQUEST * (ABNORMAL) Glucose Point of Care. (08/28/2017 3:53 PM EST) POCT Glucose 203(H) 74 - 99 mg/dL SUNQUEST Comment:Whole Blood 08/28/2017 3:53 PM EST 08/28/2017 3:56 PM EST Missael Tang MD LAB BLOOD ORDERABLES Rula l Result Performing Organization Address [facility] Phone Number SUNQUEST * (ABNORMAL) Glucose Point of Care. (08/28/2017 10:54 AM EST) POCT Glucose 244(H) 74 - 99 mg/dL SUNQUEST Comment:Whole Blood 08/28/2017 10:5 4 AM EST 08/28/2017 10:56 AM EST Missael Tang MD LAB BLOOD ORDERABLES Rula l Result Performing Organization Address [facility] Phone Number SUNQUEST * (ABNORMAL) Glucose Point of Care. (08/28/2017 7:59 AM EST) POCT Glucose 202(H) 74 - 99 mg/dL SUNQUEST Comment:Whole Blood 08/28/2017 7:59 AM EST 08/28/2017 8:01 AM EST Missael Tang MD LAB BLOOD ORDERABLES Rula l Result Performing Organization Address [facility] Phone Number SUNQUEST * Phosphorus, Plasma (08/28/2017 5:53 AM EST) Phosphorus, Plasma 3.3 2.5 - 4.5 mg/dL SUNQUEST 08/28/2017 5:53 AM EST 08/28/2017 6:19 AM EST Serena Mcneil MD LAB BLOOD ORDERABLES Final Res ult Performing Organization Address [facility] de Phone Number SUNQUEST * Magnesium, Plasma (08/28/2017 5:53 AM EST) Magnesium, Plasma 2.2 1.9 - 2.4 mg/dL SUNQUEST 08/28/2017 5:53 AM EST 08/28/2017 6:19 AM EST us Serena Mcneil MD LAB BLOOD ORDERABLES Final Res ult SUNQUEST * (ABNORMAL) Basic Metabolic Panel, Plasma (08/28/2017 5:53 AM EST) Glucose, Plasma 233(H) 74 - 99 mg/dL SUNQUEST BUN, Plasma 40(H) 7 - 21 mg/dL SUNQUEST Creatinine, Plasma 1.81(H) 0.60 - 1.10 mg/dL SUNQUEST BUN/Creatinine Ratio 22(H) 8 - 20 SUNQUEST Sodium, Plasma 137 136 - 145 mmol/L SUNQUEST Potassium, Plasma 4.4 3.7 - 4.8 mmol/L SUNQUEST Chloride, Plasma 99(L) 101 - 108 mmol/L SUNQUEST CO2, Plasma 23 22 - 29 mmol/L SUNQUEST Anion Gap 15 6 - 16 mmol/L SUNQUEST Calcium, Plasma 9.1 8.9 - 10.2 mg/dL SUNQUEST eGFR 29(L) >60 SEE NOTE SUNQUEST eGFR, if AFR/AM 35(L) >60 SEE NOTE SUNQUEST Comment: eGFR = estimated GFR, eGFR units = mL/min/1.73 sq meters Chronic Kidney Disease is considered if eGFR <60 mL/min/1.73 sq meters. Kidney failure is considered if <15 mL/min/1.73 sq meters. eGFR assumes steady state plasma creatinine concentration, not applicable if renal function is rapidly changing or patient is on dialysis. 08/28/2017 5:53 AM EST 08/28/2017 6:19 AM EST us Serena Mcneil MD LAB BLOOD ORDERABLES Final Res ult SUNQUEST * (ABNORMAL) Glucose Point of Care. (08/27/2017 9:29 PM EST) POCT Glucose 185(H) 74 - 99 mg/dL SUNQUEST Comment:Whole Blood 08/27/2017 9:29 PM EST 08/27/2017 9:31 PM EST Missael Tang MD LAB BLOOD ORDERABLES Rula l Result Performing Organization Address [facility] Co md Phone Number SUNQUEST * (ABNORMAL) Glucose Point of Care. (08/27/2017 4:19 PM EST) POCT Glucose 222(H) 74 - 99 mg/dL SUNQUEST Comment:Whole Blood 08/27/2017 4:19 PM EST 08/27/2017 4:21 PM EST Missael Tang MD LAB BLOOD ORDERABLES Rula l Result Performing Organization Address [facility] Phone Number SUNQUEST * (ABNORMAL) Glucose Point of Care. (08/27/2017 11:21 AM EST) POCT Glucose 226(H) 74 - 99 mg/dL SUNQUEST Comment:Whole Blood 08/27/2017 11:2 1 AM EST 08/27/2017 11:22 AM EST Missael Tang MD LAB BLOOD ORDERABLES Rula l Result Performing Organization Address [facility] Phone Number SUNQUEST * (ABNORMAL) Glucose Point of Care. (08/27/2017 7:45 AM EST) POCT Glucose 204(H) 74 - 99 mg/dL SUNQUEST Comment:Whole Blood 08/27/2017 7:45 AM EST 08/27/2017 7:52 AM EST Missael Tang MD LAB BLOOD ORDERABLES Rula l Result Performing Organization Address [facility] Co de Phone Number SUNQUEST * (ABNORMAL) Phosphorus, Plasma (08/27/2017 5:22 AM EST) Phosphorus, Plasma 4.7(H) 2.5 - 4.5 mg/dL SUNQUEST 08/27/2017 5:22 AM EST 08/27/2017 6:16 AM EST Rizwan Chambers MD LAB BLOOD ORDERABLES Final Result Performing Organization Address [facility] de Phone Number SUNQUEST * (ABNORMAL) Magnesium, Plasma (08/27/2017 5:22 AM EST) Magnesium, Plasma 1.5(L) 1.9 - 2.4 mg/dL SUNQUEST 08/27/2017 5:22 AM EST 08/27/2017 6:16 AM EST Rizwan Chambers MD LAB BLOOD ORDERABLES Final Result Performing Organization Address [facility] Phone Number SUNQUEST * (ABNORMAL) Basic Metabolic Panel, Plasma (08/27/2017 5:22 AM EST) Glucose, Plasma 225(H) 74 - 99 mg/dL SUNQUEST BUN, Plasma 30(H) 7 - 21 mg/dL SUNQUEST Creatinine, Plasma 1.90(H) 0.60 - 1.10 mg/dL SUNQUEST BUN/Creatinine Ratio 16 8 - 20 SUNQUEST Sodium, Plasma 139 136 - 145 mmol/L SUNQUEST Potassium, Plasma 4.8 3.7 - 4.8 mmol/L SUNQUEST Chloride, Plasma 102 101 - 108 mmol/L SUNQUEST CO2, Plasma 21(L) 22 - 29 mmol/L SUNQUEST Anion Gap 16 6 - 16 mmol/L SUNQUEST Calcium, Plasma 8.8(L) 8.9 - 10.2 mg/dL SUNQUEST eGFR 27(L) >60 SEE NOTE SUNQUEST eGFR, if AFR/AM 33(L) >60 SEE NOTE SUNQUEST Comment: eGFR = estimated GFR, eGFR units = mL/min/1.73 sq meters Chronic Kidney Disease is considered if eGFR <60 mL/min/1.73 sq meters. Kidney failure is considered if <15 mL/min/1.73 sq meters. eGFR assumes steady state plasma creatinine concentration, not applicable if renal function is rapidly changing or patient is on dialysis. 08/27/2017 5:22 AM EST 08/27/2017 6:16 AM EST Rizwan Chambers MD LAB BLOOD ORDERABLES Final Result Performing Organization Address City/[facility]/ZIP Co de Phone Number SUNQUEST * (ABNORMAL) CBC W/O Differential (08/27/2017 5:22 AM EST) WBC Count 10.5(H) 3.7 - 10.3 k/uL SUNQUEST RBC Count 3.51(L) 3.9 - 5.2 M/uL SUNQUEST HGB 11.3 11.2 - 15.7 g/dL SUNQUEST HCT 33.9(L) 34 - 45 % SUNQUEST Platelet Count 247 155 - 369 k/uL SUNQUEST MCV 97 79 - 98 fL SUNQUEST MCH 32.2(H) 26 - 32 pg SUNQUEST MCHC 33.3 30.7 - 35.5 g/dL SUNQUEST RDW 13.4 12.4 - 14.9 % SUNQUEST MPV 11.4 8.8 - 12.5 fL SUNQUEST NRBC COUNT 0 0 % SUNQUEST 08/27/2017 5:22 AM EST 08/27/2017 6:12 AM EST Rizwan Chambers MD LAB BLOOD ORDERABLES Final Result Performing Organization Address [facility] Phone Number SUNQUEST * (ABNORMAL) Glucose Point of Care. (08/26/2017 9:33 PM EST) POCT Glucose 229(H) 74 - 99 mg/dL SUNQUEST Comment:Whole Blood 08/26/2017 9:33 PM EST 08/26/2017 9:36 PM EST Missael Tang MD LAB BLOOD ORDERABLES Rula l Result Performing Organization Address [facility] Co de Phone Number SUNQUEST * (ABNORMAL) Glucose Point of Care. (08/26/2017 3:49 PM EST) POCT Glucose 194(H) 74 - 99 mg/dL SUNQUEST Comment:Whole Blood 08/26/2017 3:49 PM EST 08/26/2017 3:51 PM EST us Missael Tang MD LAB BLOOD ORDERABLES Rula l Result Performing Organization Address [facility] Co de Phone Number SUNQUEST * (ABNORMAL) Glucose Point of Care. (08/26/2017 8:38 AM EST) POCT Glucose 120(H) 74 - 99 mg/dL SUNQUEST Comment:Whole Blood 08/26/2017 8:38 AM EST 08/26/2017 8:36 AM EST us Missael Tang MD LAB BLOOD ORDERABLES Rula l Result Performing Organization Address [facility] Co de Phone Number SUNQUEST documented in this encounter Visit Diagnoses Diagnosis Incisional hernia without obstruction or gangrene documented in this encounter
--- OUTSIDE RECORDS SUMMARY | 2024-06-22 10:19 | XMS_ITS | Referral Summary ---
Author Organization [facility] Address [address] [place] [address] Phone Care Team Providers Care Water Control Station Engineer Name Role Phone Lupillo Garcia MD Primary [...] (03/05/2021): topamax Metabolic acidosis, NAG, bicarbonate losses Social History Tobacco Use Types Packs/Day Years [...] 03/05/2021 6:28 PM EDT Plan of Treatment Not on file Procedures Procedure Name Priority Date/Time Associated Diagnosis [...] EDT Impressions 12/09/2023 9:18 AM EDT Negative ??([id number]) ~ RECOMMENDATION: Routine screening mammogram in 1 [...] the next mammogram, in accordance with the [employer] and the Society of Breast Imaging recommendations. Narrative 12/09/2023 9:18 AM EDT Procedure:MM MAMMO DIGITAL MICHEAL SCREEN BILAT ~ Reason for exam: screening, asymptomatic. Z12.31-Encounter for screening mammogram for malignant neoplasm of [id number]-MPH-[id number]-CM ~ MM MAMMO DIGITAL MICHEAL SCREEN BILAT [...] for screening mammogram for malignant neoplasm of [id number] ~ MM MAMMO DIGITAL MICHEAL SCREEN BILAT Bilateral CC and MLO view(s) were taken. The breast tissue is heterogeneously dense. This may lower thesensitivity of mammography. Prior study comparison: None. This is a baseline mammogram. No mammographic evidence of malignancy. ~ IMPRESSION: Negative ([id number]-2) ~ RECOMMENDATION: Routine screening mammogram in 1 [...] the next mammogram, in accordance with the [employer] and the Society of Breast Imaging recommendations. us Lupillo Garcia MD IMG MAMMOGRAPHY ORDERABLES Final Result * (ABNORMAL) MICROALBUMIN/CREATININE RATIO URINE (03/06/2021 9:35 AM EDT) Urine Microalb 91.0 mg/L 03/06/2021 3:54 PM EDT [facility]REFERRED [facility], [facility] Urine Creatinine 80.1 mg/dL 03/06/2021 3:54 PM EDT [facility], [facility] Ur Microalb/Creat 114(H) 0 - 30 mg/g 03/06/2021 3:54 PM EDT [facility], [facility] Urine URINE SPECIMEN COLLECTION / Unknown 03/06/2021 9:35 AM EDT 03/06/2021 9:47 AM EDT Leonardo Zepeda MD (Ronny) URINE ORDERABLE S Final Result [facility], [address] , [place] [address] * (ABNORMAL) HEMOGLOBIN A1C (03/05/2021 10:01 PM EDT) Hgb A1C 6.8(H) 4.2 - 5.6 % 03/05/2021 10:31 PM EDT [facility], [facility] Est. Avg Glucose 148 mg/dL 03/05/2021 10:31 PM EDT [facility], [facility] Blood VENOUS BLOOD / Unknown Venipuncture / Unknown 03/05/2021 10:01 PM EDT 03/05/2021 10:10 PM EDT Narrative [facility]REF[facility]ED [facility], [facility] - 03/05/2021 10:31 PM EDT REFERENCE RANGE: Normal: 4.0-5.6% Pre-diabetes: 5.7-6.4% Provisional diagnosis of diabetes: >6.4% Hgb F>10% and anything which shortens red cell survival, such as hemolytic anemia, or unstable hemoglobin variants such as HbSS, HbSC, or HbCC, will lower the HbA1c value associated with a given level of glycemic control. ? us Leonardo DodsonDmitri) Katelyn MEEKS CHEMISTRY ORDER [place] Final Result [facility] [address], [place] [address] * (ABNORMAL) LIPID SCREEN (12/30/2016 12:14 AM EDT) Cholesterol 167 <=200 mg/dL [facility] Comment: < 200 ?Desirable 200 - 239 ? Borderline High >= 240 ?High Triglyceride 264(H) <=150 mg/dL [facility] Comment: < 150 ? Normal 150 - 199 ?Borderline High 200 - 499 ?High ??>= 500 ? Very High HDL 20(L) >=40 mg/dL [facility] Comment: ?? > 60 ?Optimal 40 - 60 ?Acceptable ?? < 40 ?Low LDL Calculated 94 <=100 mg/dL [facility] Comment: ??< 100 ?Optimal 100 - 129 ? Near or above optimal 130 - 159 ? Borderline High 160 - 189 ? High >= 190 ?Very High Blood specimen (specimen) UPPER LIMB STRUCTURE / Unknown 12/30/2016 12:14 AM EDT 12/30/2016 5:15 AM EDT us Jarad Harvey MD CHEMISTRY ORDERABLES Edited Res ult - Final [facility] [address] [place] [address] from Last 3 Months or Most Recently Relevant to Health Maintenance Insurance [employer] [place] [id number] [employer] [facility] [place] [address] [employer] Advance Directives For more information, please contact: [phone] * Full Code (Latest Code Status on File) Date Activated Date Inactivated Comments 03/05/2021 7:26 PM 03/14/2021 3:00 PM * Full Code Date Activated Date Inactivated Comments 12/29/2016 9:43 PM 12/30/2016 11:10 PM Care Teams Water Control Station Engineer Relationship Specialty Start Date End Date Lupillo Garcia MD PCP - General Family Medicine 11/10/12
--- OUTSIDE RECORDS SUMMARY | 2024-06-22 10:20 | XMS_ITS | Encounter Summary ---
Author Organization 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 Name Role Phone Lupillo Garcia MD Primary Care Provider [phone] Reason for Visit * Auth/Cert/Inpt Specialty Diagnoses / Procedures Referred By Artis enamorado Referred To Contact Diagnoses COVID-19 covid-19 Referral ID Status Reason Start Date Expiration Date Visits Re quested Visits Authorized [id number] 1 1 Encounter Details Date Type Department Care Team (Latest Contact Info) Description 03/05/2021 6:08 PM EDT - 03/14/2021 10:55 AM EDT Hospital Encounter EDG 3C PULMONARY [facility] Raoul Frantz, [facility] Caroline Quintanilla MD Discharge Disposition: Home or Self Care Social [...] on file Sexual Orientation Not on file COVID-19 Exposure Response Date Recorded In the last month, have you been in contact with someone who was confirmed or suspected to have Coronavirus / COVID-19? Yes 03/05/2021 10:08 AM EDT documented as of this encounter Last Filed [...] Mass Index 32.68 03/05/2021 6:28 PM EDT documented in this encounter Discharge Summaries * Seb Quinonez MD - 03/14/2021 7:47 AM EDT [facility] Discharge Summary Patient Name: Caroline Romero : 1960 Admit Date: 03/05/2021 Discharge Date: 03/14/2021 Admitting Physician: Caroline Quintanilla MD Discharging Physician: Seb Quinonez MD Reason for Hospitalization: Active Hospital Problems Metabolic acidosis, NAG, bicarbonate losses *COVID-19 virus infection Chronic diarrhea Diabetes mellitus (HCC) Hypotension Migraines JIE (acute kidney injury) (HCC) Essential hypertension Brief Hospital Summary: Caroline admitted for respiratory failure due to covid pna. She received decadron and a few doses of remdesivir. Hypoxemia now resolved. Had JIE and metabolic acidosis that resolved. Blood sugars elevated due to steroid but it will be okay for her home diabetic regimen at discharge. SNF had been planned but she improved and was stable for discharge home Labs and imaging follow-up needed: Consultants: Treatment Team: Consulting Physician: Jarad Harvey MD Discharge Exam: Vitals: 03/14/21 0435 BP: 138/57 Pulse: 70 Resp: 16 Temp: 97 ??F (36.1 ??C) SpO2: 96% Gen: no acute distress, alert, oriented, HEENT: atraumatic, normocephalic,PERRLA EOMI, no JVD, Cardiovascular: RRR without murmurs, rubs, or gallops Lungs: CTA, no wheezing, crackles, or rhonchi, no accessory muscle use Abdomen: positive bowel sounds, soft, non-tender to palpation, no hepatosplenomegaly appreciated, no masses Extremities: no cyanosis, clubbing or edema Neuro: no focal neurological deficits, strength and sensation normal, Skin: clear, dry, and intact, no rashes Psyche: Normal mood and affect Heme: No bleeding or bruising Musculoskeletal: No muscle or joint pain or redness Correct Full Discharge Med List: Medication List START taking these medications dexAMETHasone 6 mg Tab Dose: 6 mg Qty: 5 Tablet Refills: 0 Commonly known as: DECADRON 6 mg, Oral, EVERY 24 HOURS SCHEDULED loperamide 2 mg Cap Dose: 2 mg Qty: 30 Capsule Refills: 0 Commonly known as: IMODIUM 2 mg, Oral, 4 TIMES DAILY PRN potassium chloride 20 mEq Tbsr Dose: 40 mEq Qty: 2 Tablet Refills: 0 40 mEq, Oral, 2 TIMES DAILY WITH MEALS Saccharomyces boulardii 250 mg Cap Dose: 250 mg Qty: 30 Capsule Refills: 0 Commonly known as: FLORASTOR 250 mg, Oral, 2 TIMES DAILY Sodium Bicarbonate 650 mg Tab Dose: 650 mg Qty: 60 Tablet Refills: 0 650 mg, Oral, 2 TIMES DAILY CHANGE how you take these medications acetaminophen 325 mg Tab Dose: 650 mg Qty: 30 Tablet Refills: 0 Commonly known as: TYLENOL 650 mg, Oral, EVERY 6 HOURS PRN What changed: Another medication with the same name was removed. Continue taking this medication, and follow the directions you see here. CONTINUE taking these medications albuterol 90 mcg/actuation Hfaa Dose: 2 Puff Refills: 0 Commonly known as: PROVENTIL HFA;VENTOLIN HFA atorvastatin 40 mg Tab Dose: 40 mg Refills: 0 Commonly known as: LIPITOR buPROPion 150 mg Sr12 Dose: 150 mg Refills: 0 Commonly known as: WELLBUTRIN SR diazePAM 5 mg Tab Refills: 0 Commonly known as: VALIUM estrogens (conjugated) 0.3 mg Tab Dose: 0.3 mg Refills: 0 Commonly known as: PREMARIN fenofibrate 160 mg Tab Dose: 160 mg Refills: 0 Commonly known as: LOFIBRA gabapentin 100 mg Cap Dose: 100 mg Refills: 0 Commonly known as: NEURONTIN guaiFENesin 100 mg/5 mL Liqd Qty: 236 mL Refills: 0 Commonly known as: ROBITUSSIN 200-400 mg every 4 hours as needed for cough HUMALOG SUBQ Refills: 0 Insulin glargine 100 unit/mL (3 mL) Inpn Dose: 20 Units Refills: 0 Commonly known as: LANTUS Lortab 10-500 mg Tab Dose: 1 Tablet Refills: 0 Generic drug: HYDROcodone-acetaminophen methocarbamoL 500 mg Tab Dose: 500 mg Refills: 0 Commonly known as: ROBAXIN metoprolol 25 mg Tab Dose: 25 mg Refills: 0 Commonly known as: LOPRESSOR omeprazole 20 mg Cpdr Dose: 20 mg Refills: 0 Commonly known as: PriLOSEC promethazine 25 mg Tab Dose: 25 mg Refills: 0 Commonly known as: PHENERGAN SUMAtriptan 100 mg Tab Dose: 100 mg Refills: 0 Commonly known as: IMITREX tiZANidine 4 mg Tab Dose: 4 mg Refills: 0 Commonly known as: ZANAFLEX tocopherol acetate 400 unit Cap Dose: 400 Units Refills: 0 Commonly known as: VITAMIN E topiramate 100 mg Tab Refills: 0 Commonly known as: TOPAMAX STOP taking these medications lisinopriL 2.5 mg Tab Commonly known as: PRINIVIL;ZESTril spironolactone 50 mg Tab Commonly known as: ALDACTONE Where to Get Your Medications These medications were sent to [facility] [place] [address] - [address] - [phone] [address] [facility] [address], [place] [id number] ?? dexAMETHasone 6 mg Tab ?? loperamide 2 mg Cap ?? potassium chloride 20 mEq Tbsr ?? Saccharomyces boulardii 250 mg Cap ?? Sodium Bicarbonate 650 mg Tab Condition at Discharge: stable Disposition: Home Follow-up: Les Louie MD [address] [facility]. [address] [facility] [address] Schedule an appointment as soon as possible for a visit in 1 month for chronic diarrhea workup Lupillo Garcia MD [address] [place] [id number] Schedule an appointment as soon as possible for a visit in 1 week Kenneth Reyes MD [address] [facility] [address] Schedule an appointment as soon as possible for a visit Seb Quinonez MD 03/14/2021 Over 30 min * Herbie Haider MD - 03/09/2021 10:15 AM EDT [facility] Discharge Summary Patient Name: Caroline Romero : 1960 Admit Date: 03/05/2021 Discharge Date: 03/09/2021 Admitting Physician: Caroline Quintanilla MD Discharging Physician: Herbie Haider MD Reason for Hospitalization: COVID-19 infection -O2 sat stable on room air -Chest x-ray negative -Fevers improving ?? Acute on chronic diarrhea -Likely secondary to COVID-19 infection, unknown cause for chronic diarrhea -May be improving ?? Dehydration -P.o. intake improving ?? Acute on chronic renal failure -Improved/resolved, creatinine now back to baseline ?? Hypotension -Resolved -Status post 3 L IV fluid bolus and brief pressors ?? Fevers -Secondary??to??COVID-19 infection -UA and chest x-ray negative??and normal WBCs and blood cultures negative -improving ?? Hypertension ?? Dyslipidemia ?? Type 2 diabetes mellitus -Well-controlled ?? Mood disorder ?? Migraine headaches ?? Chronic pain syndrome ?? Mild thrombocytopenia -Stable ?? Hypokalemia secondary to diarrhea -Resolved ?? Hypomagnesemia -Resolved ?? Hypophosphatemia -Resolved Brief Hospital Summary: Patient is a 60-year-old female diagnosed with COVID-19. She presented to ER infusion center for hypotension and generalized weakness. Also with nonproductive cough chills body aches and fevers. Also chest pain for a few days nonproductive cough. In ER she is slightly hypotensive. Chest x-ray was normal. Creatinine was elevated 3.46. Is having diarrhea. On exam chest tightness but chest was tender to palpation. Chest x-ray was clear. She did not require O2. Was placed onIV fluids. Blood pressure medications were held. Nephrology and GI consults obtained. Was placed onprobiotics and as needed Imodium. Stool studies ordered. She is to follow-up with GI outpatient. P.o. intake is improving. Diarrhea is improving. Renal function has returned to baseline. Electrolyteshave been corrected. Fevers are resolved today. Has been afebrile for greater than 24 hours now. PTeval pending. She could be discharged today depending on PT eval and disposition based on PT eval. A total of 32 minutes of time was spent on discharge process. O2 sat 91 to 95% on room air. She denies any shortness of breath. Labs and imaging follow-up needed: None Pending Labs Order Current Status Collection Date and Time FECAL CALPROTECTIN Collected 03/06/2021 11:37 PM STOOL CULTURE (NO STAIN) In process 03/06/2021 11:36 PM Consultants: Treatment Team: Consulting Physician: Jarad Harvey MD Discharge Exam: Vitals: 03/09/21 1005 BP: 112/57 Pulse: 65 Resp: 18 Temp: 98.4 ??F (36.9 ??C) SpO2: 91% See Progress Note Correct Full Discharge Med List: Medication List START taking these medications loperamide 2 mg Cap Dose: 2 mg Qty: 30 Capsule Refills: 0 Commonly known as: IMODIUM 2 mg, Oral, 4 TIMES DAILY PRN Saccharomyces boulardii 250 mg Cap Dose: 250 mg Qty: 30 Capsule Refills: 0 Commonly known as: FLORASTOR 250 mg, Oral, 2 TIMES DAILY Sodium Bicarbonate 650 mg Tab Dose: 650 mg Qty: 60 Tablet Refills: 0 650 mg, Oral, 2 TIMES DAILY CHANGE how you take these medications acetaminophen 325 mg Tab Dose: 650 mg Qty: 30 Tablet Refills: 0 Commonly known as: TYLENOL 650 mg, Oral, EVERY 6 HOURS PRN What changed: Another medication with the same name was removed. Continue taking this medication, and follow the directions you see here. CONTINUE taking these medications albuterol 90 mcg/actuation Hfaa Dose: 2 Puff Refills: 0 Commonly known as: PROVENTIL HFA;VENTOLIN HFA atorvastatin 40 mg Tab Dose: 40 mg Refills: 0 Commonly known as: LIPITOR buPROPion 150 mg Sr12 Dose: 150 mg Refills: 0 Commonly known as: WELLBUTRIN SR diazePAM 5 mg Tab Refills: 0 Commonly known as: VALIUM estrogens (conjugated) 0.3 mg Tab Dose: 0.3 mg Refills: 0 Commonly known as: PREMARIN fenofibrate 160 mg Tab Dose: 160 mg Refills: 0 Commonly known as: LOFIBRA gabapentin 100 mg Cap Dose: 100 mg Refills: 0 Commonly known as: NEURONTIN guaiFENesin 100 mg/5 mL Liqd Qty: 236 mL Refills: 0 Commonly known as: ROBITUSSIN 200-400 mg every 4 hours as needed for cough HUMALOG SUBQ Refills: 0 Insulin glargine 100 unit/mL (3 mL) Inpn Dose: 20 Units Refills: 0 Commonly known as: LANTUS Lortab 10-500 mg Tab Dose: 1 Tablet Refills: 0 Generic drug: HYDROcodone-acetaminophen methocarbamoL 500 mg Tab Dose: 500 mg Refills: 0 Commonly known as: ROBAXIN metoprolol 25 mg Tab Dose: 25 mg Refills: 0 Commonly known as: LOPRESSOR omeprazole 20 mg Cpdr Dose: 20 mg Refills: 0 Commonly known as: PriLOSEC promethazine 25 mg Tab Dose: 25 mg Refills: 0 Commonly known as: PHENERGAN SUMAtriptan 100 mg Tab Dose: 100 mg Refills: 0 Commonly known as: IMITREX tiZANidine 4 mg Tab Dose: 4 mg Refills: 0 Commonly known as: ZANAFLEX tocopherol acetate 400 unit Cap Dose: 400 Units Refills: 0 Commonly known as: VITAMIN E topiramate 100 mg Tab Refills: 0 Commonly known as: TOPAMAX STOP taking these medications lisinopriL 2.5 mg Tab Commonly known as: PRINIVIL;ZESTril spironolactone 50 mg Tab Commonly known as: ALDACTONE Where to Get Your Medications These medications were sent to [facility] [place] [address] [address] [address] - [phone] [address] [address], [place] [address] ?? loperamide 2 mg Cap ?? Saccharomyces boulardii 250 mg Cap ?? Sodium Bicarbonate 650 mg Tab Condition at Discharge: fair Disposition: Home Follow-up: Les Louie MD [address] [facility]. [address] [facility] [address] Schedule an appointment as soon as possible for a visit in 1 month for chronic diarrhea workup Lupillo Garcia MD [address] [place] [address] Schedule an appointment as soon as possible for a visit in 1 week Kenneth Reyes MD [address] [place] [address] Schedule an appointment as soon as possible for a visit Herbie Haider MD 03/09/2021 documented in this encounter Discharge Instructions * Discharge Instructions* Herbie Haider MD - 03/09/2021 9:56 AM EDT Images from the original note were not included. Patient Education COVID-19 Discharge Instructions About this topic Coronavirus disease 2019 is also known as COVID-19. It is a viral illness that infects the lungs. It is caused by a virus called SARS-associated coronavirus (SARS-CoV-2). The signs of COVID-19 most often start a few days after you have been infected. In some people, it takes longer to show signs. Others never show signs of the infection. You may have a cough, fever, shaking chills and it may be hard to breathe. You may be very tired, have muscle aches, a headache orsore throat. Some people have an upset stomach or loose stools. Others lose their sense of smell ortaste. You may not have these signs all the time and they may come and go while you are sick. The virus spreads easily through droplets when you talk, sneeze, or cough. You can pass the virus to others when you are talking close together, singing, hugging, sharing food, or shaking hands. Doctors believe the germs also survive on surfaces like tables, door handles, and telephones. However, this is not a common way that COVID-19 spreads. Doctors believe you can also spread the infection even if you don???t have any symptoms, but they do not know how that happens. This is why keeping people apart is one of the best ways to slow the spread of the virus. Some people have a mild case of COVID-19 and are able to stay at home and away from others until they feel better. Others may need to be in the hospital if they are very sick. Some people with COVID-19 can have some symptoms for weeks or months. People with COVID-19 must isolate themselves. You canstart to be around others when your doctor says it is safe to do so. What care is needed at home? ?? Ask your doctor what you need to do when you go home. Make sure you ask questions if you do not understand what the doctor says. ?? Drink lots of water, juice, or broth to replace fluids lost from a fever. ?? You may use cool mist humidifiers to help ease congestion and coughing. ?? Use 2 to 3 pillows to prop yourself up when you lie down to make it easier to breathe and sleep. ?? Do not smoke and do not drink beer, wine, and mixed drinks (alcohol). ?? To lower the chance of passing the infection to others: ? Wear a mask over your mouth and nose if you are around others who are not sick. Cloth masks work best if they have more than one layer of fabric. ? Wash your hands often. ? Stay home in a separate room, away from others. Only go out to get medical care. ? Use a separate bathroom if possible. ? Do not make food for others. What follow-up care is needed? ?? Your doctor may ask you to make visits to the office to check on your progress. Be sure to keep these visits. Make sure you wear a mask at these visits. ?? If you can, tell the staff you have COVID-19 ahead of time so they can take extra care to stop the disease from spreading. ?? It may take a few weeks before your health returns to normal. What drugs may be needed? The doctor may order drugs to: ?? Help with breathing ?? Help with fever ?? Help with swelling in your airways and lungs ?? Control coughing ?? Ease a sore throat ?? Help a runny or stuffy nose Will physical activity be limited? You may have to limit your physical activity. Talk to your doctor about the right amount of activity for you. If you have been very sick with COVID-19, it can take some time to get your strength back. Will there be any other care needed? Doctors do not know how long you can pass the virus on to others after you are sick. This is why itis important to stay in a separate room, if possible, when you are sick. For now, doctors are giving general guidelines for you to follow after you have been sick. Before you go around other people, you should: ?? Be fever free for 3 days without taking any drugs to lower your fever ?? Have no symptoms of cough or shortness of breath ?? Wait at least 10 days after you first have symptoms or your first positive test, and you need wendy symptom-free as above. Some experts suggest waiting 14 days. The amount of time you should avoidothers may be based on how severe your symptoms were or if you have problems with your immune system. Sometimes doctors will also want you have 2 negative tests for COVID-19 at least 1 day apart. Doctors also do not know if you will be able to catch this virus again. Experts recommend that you get a COVID-19 vaccine when it is available. What problems could happen? ?? Fluid loss. This is dehydration. ?? Short-term or long-term lung damage ?? Heart problems ?? What can be done to prevent this health problem? ?? Wear a cloth mask or face cover made with more than one layer of fabric over your mouth and nose: ? When you leave your house. It is best to stay home as much as you can. Only go out for food or medicine. If you have to be around others, try to stay at least 6 feet (1.8 meters) away from them. ? If you are sick with COVID-19 and must be in the same room with other people. It is best to stay in a room away from others when you have COVID-19. ? When you take care of someone in your home with COVID-19. You may also want to wear gloves. ? If you have symptoms of COVID-19 and are around other people. It is best to stay in a room away from others. ? If you are at high risk for COVID-19 and are around other people. ?? Wash your hands as soon as you take your cloth mask or face cover off. Take care not to touch your eyes, nose, or mouth when you take off your mask. ?? Wash your hands often with soap and water for at least 20 seconds, especially after coughing or sneezing. Alcohol-based hand sanitizers with at least 60 percent alcohol also work to kill the virus. Rub your hands with the culinary artist for at least 20 seconds. ?? Avoid crowds. Even small groups can be risky. Try to stay home as much as you can. If you do need to be in a group of other people wash your hands often. Outdoors is probably less risky than gathering indoors. Try to stay at least 6 feet (1.8 meters) apart. Avoid handshakes, hugs and high fives.Avoid touching your face. ?? City and state leaders may limit how many people can gather together. You may be asked to stay home and it is important to follow this information as best you can. ?? If you must travel, check for alerts on what countries and places are affected by COVID-19 and stay away from those areas. Some places require you to self-quarantine before you visit. This means not going out in public or around other people for at least 14 days before you travel. ?? Cover your mouth and nose with a tissue when you cough or sneeze. You can also cough into your elbow. Throw away tissues in the trash and wash your hands after touching used tissues. ?? Avoid touching your own face with your hands, especially around your nose and mouth. ?? Wipe down often touched objects and surfaces with a household cleaning wipe or spray. Check the label to make sure it works to kill viruses. ?? Wear a gown, face mask, and gloves if you will come in contact with blood, mucus, or other body fluids from someone who has COVID-19. This includes being around a person with COVID-19 as germs canbe passed when they speak or cough. When do I need to call the doctor? ?? Signs of infection. These include a fever of 100.4??F (38??C) or higher, chills, cough, more sputum, or change in color of sputum. ?? Breathing is getting worse - harder or faster than before or you feel like you are getting less air ?? Trouble breathing while lying down flat on your back ?? You need to lean forward to help you breathe when sitting ?? Fingertips, fingernails, skin, or lips are blue Teach Back: Helping You Understand The Teach Back Method helps you understand the information we are giving you. After you talk with the staff, tell them in your own words what you learned. This helps to make sure the staff has described each thing clearly. It also helps to explain things that may have been confusing. Before going home, make sure you can do these: ?? I can tell you about my condition. ?? I can tell you what may help ease my breathing. ?? I can tell you what I can do to help avoid passing the infection to others. ?? I can tell you what I will do if I have trouble breathing; feel sleepy or confused; or my fingertips, fingernails, skin, or lips are blue. Where can I learn more? Centers for Disease Control and Prevention https://www.cdc.gov/coronavirus/2019-ncov/about/index.html Centers for Disease Control and Prevention https://www.cdc.gov/coronavirus/2019-ncov/hcp/spcuvyjegme-ds-ypld-patients.html World Health Organization https://www.who.int/news-room/q-a-detail/i-z-kblfcxjtcmdsu Last Reviewed Date 2020-10-13 Consumer Information Use and Disclaimer This information is not specific medical advice and does not replace information you receive from your health care provider. This is only a brief summary of general information. It does NOT include all information about conditions, illnesses, injuries, tests, procedures, treatments, therapies, discharge instructions or life-style choices that may apply to you. You must talk with your health care provider for complete information about your health and treatment options. This information should not be used to decide whether or not to accept your health care provider???s advice, instructions or recommendations. Only your health care provider has the knowledge and training to provide advice that is right for you. Copyright Copyright ?? 2020 [employer]. and its affiliates and/or licensors. All rights reserved. documented in this encounter Medications at Time of Discharge [...] Tablet Take by mouth 2 times daily. acetaminophen 325 mg Oral Tab Take 2 Tablets by mouth every 6 hours as needed for Pain or Fever for up to 30 days. 30 Tablet 03/03/2021 09/27/202 1 dexAMETHasone (DECADRON) 6 mg Oral Tablet Take 1 Tablet by mouth every 24 hours for 5 doses. 5 Tablet 03/14/2021 1 guaiFENesin (ROBITUSSIN) 100 mg/5 mL Oral Liquid 200-400 mg every 4 hours as needed for cough 236 mL 03/03/2021 1 potassium chloride 20 mEq Oral Tablet Sustained Release Take 40 mEq by mouth 2 times daily (with meals) for 3 doses. 2 Tablet 03/13/2021 1 documented as of this encounter Ordered Prescriptions Prescription Sig Dispense Quantity Refills Last Filled Start Date End Date Sodium Bicarbonate 650 mg Oral Tablet Take 1 Tablet by mouth 2 times daily. 60 Tablet 03/09/2021 Saccharomyces boulardii (FLORASTOR) 250 mg Oral Capsule Take 1 Capsule by mouth 2 times daily. 30 Capsule 03/09/2021 loperamide (IMODIUM) 2 mg Oral Capsule Take 1 Capsule by mouth 4 times daily as needed for Diarrhea. 30 Capsule 03/09/2021 potassium chloride 20 mEq Oral Tablet Sustained Release Take 40 mEq by mouth 2 times daily (with meals) for 3 doses. 2 Tablet 03/13/2021 1 dexAMETHasone (DECADRON) 6 mg Oral Tablet Take 1 Tablet by mouth every 24 hours for 5 doses. 5 Tablet 03/14/2021 1 documented in this encounter Discharge Disposition Disposition Code Departure Means Destination Home or Self Custodial documented in this encounter Progress Notes * Lynn Treviño, PT - 03/14/2021 10:34 AM EDT 03/14/21 1030 PT Subjective Note Type Treatment/Progress Discharge Information Discharge complete, please see discharge summary report for further information including most recently documented activity level Admitting Diagnosis 60 y.o. female with history of asthma, sleep apnea, diabetes, depression and recently diagnosed COVID-19 presents to the ED via wheelchair from the infusion center with hypotension. She was seen in the ED two days ago with concern for COVID-19 with multiple family members positive. She reported chest pain, shortness of breath, cough, nausea, vomiting, and diarrhea. She has notbeen vaccinated. Covid test was positive and chest x-ray was clear. CBC and BMP unremarkable. No hypoxia. She was referred for monoclonal antibody treatment. Cognition Additional comments normal cognition Precautions Therapy Precautions Yes Precaution Info Given Yes;Contact;Airborne;To use call light to request assistance with all mobility PT/OT Personal Protective Equipment Gloves;Gown;Surgical mask;Face shield;N95 respirator;Hair cover Observation Presentation Patient resting in bed Observation monitoring analyst Bed Mobility Rolling Modified independent (device) Supine to Sit Modified independent (device) Sit to Supine Modified independent (device) Transfers Sit to Stand Independent Stand to Sit Independent Bed to/from chair Supervision Gait Gait Supervision Gait Distance (Feet) 150 Feet Assistive Device 2 Wheel walker Vitals SPO2 90 on RA AM PAC: How much help from another person does the patient currently need... turning from your back to your side while in a flat bed without using bedrails? 4 moving from lying on your back to sitting on the side of a flat bed without using bedrails? 4 moving to and from a bed to a chair? 3 standing up from a chair using your arms (e.g. wheelchair, or bedside chair)? 3 need to walk in hospital room? 3 climbing 3-5 steps with a railing? 3 AM PAC: BASIC MOBILITY SCORING AM PAC Moblity Raw Score 20 AM PAC Mobility CMS 0-100% Functional Percentage 33.32 AM PAC Mobility CMS G Code Modifier CJ Balance Sitting Balance 4+/5 moves/returns trunkal midpoint 1-2 inches in multiple planes Standing Balance 3+/5 indep, without support for 30 seconds or greater Patient Safety Patient Safety Patient left in chair with needs in reach;Chair/personal alarm activated Assessment Prognosis Good;With continued PT s/p acute discharge Rationale for Skilled Therapy Not safe with independent transfers;Not safe ambulating independently Goals Will Perform Supine To Sit Supervision;Met Will Transfer Bed/Chair With appropriate assistive device;Supervision;Met Will Ambulate With least restrictive assistive device;With 2 wheel walker;51-100 feet;With stand byassist;Met Will Tolerate Exercise 6-10 reps;With verbal cues required/provided;Not assessed Plan PT Frequency Complete Recommendation PT Recommendation Home PT S1 Therapy Equipment Recommended 2 Wheel walker Time In / Time Out [phone] IP PT Treatment Minutes 28 The total time spent caring for this patient included but was not limited to medical record review;hands-on treatment * Crystal Lazo MSW - 03/14/2021 10:00 AM EDT 03/14/21 0948 Ongoing Discharge Planning Evaluation Discharge to Home with Family Transportation at discharge Ambulance Actual Discharge Plan 03/14/21 SW FINAL- SW spoke with pt via phone, confirmed DC plan. Pt states sheis returning home with spouse on this date. Previous CC made transportation arrangements with non-emergent ambulance transport at 10am. No other DC needs identified. Final Note Referral to [facility] Care Management (SEP patients only) N/A Patient/Family Aware of Plan Yes MD Aware of Plan Yes RN Notified of Plan Yes Patient's goals for recovery [place] in self-care * Kenneth Reyes MD - 03/13/2021 10:22 PM EDT Name: Caroline Romero Date: 03/13/2021 : 1960 Age: 60 y.o. We are following patient due to renal failure Nephrology Progress Note Dr. Kenneth Reyes M.D [facility] Progress since last Visit Caroline Romero is a 60 y.o. WF admitted with hypotension, weakness and fever and diagnosed with Covid19. Her Scr increased from 1.1-1.3 to peak 3.46 and improved with IVF expansion, last Scr 0.97, Na 145, K 3.7, Cl 108, CO12 23 PMHx DM, HTN, CKD. Outpatient meds include tylenol, Albuterol, Lipitor, Wellbutrin, Neurontin, Insulin, Lisinopril, Prilosec, Zanaflex, Lopressor, Aldactone, E and Topamax. Plan of Care JIE on [id number] Improving Scr down to 0.97 after peak at 3.46 Metabolic acidosis due to Topamax effect on AC resulting in RTA from bicarbonaturia On Na bicarb Hypokalemia Replacing orally Hypotension Resolved DM Per primary team Covid19 On RA No Dexamethasone or Remdesivir Active Hospital Problems Diagnosis *COVID-19 virus infection Metabolic acidosis, NAG, bicarbonate losses Chronic diarrhea Diabetes mellitus (HCC) Hypotension Migraines JIE (acute kidney injury) (HCC) Essential hypertension Objective Physical Exam at 10:22 PM BP 146/70 (BP Location: Left arm, Patient Position: Sitting) Pulse 79 Temp 98.5 ??F (36.9 ??C) (Oral) Resp 18 Ht 5' (1.524 m) Wt 167 lb 5.3 oz (75.9 kg) SpO2 100% BMI 32.68 kg/m?? Wt Readings from Last 3 Encounters: 03/06/21 167 lb 5.3 oz (75.9 kg) 03/05/21 151 lb (68.5 kg) 03/05/21 151 lb (68.5 kg) General Appearance: Pleasant 60 y.o. female in no acute distress. Head: Normocephalic. HEENT WNL. Eyes: SAMAN. Neck: No JVD at 45 degrees. Chest: Clear to auscultation and percussion. Heart: S1 and S2 rhythmic and regular without click, murmur, or rub. Abdomen: SNT. No organomegalies. Bowel sounds present. No abdominal bruits. Genitalia: Normal female genitalia. No CVA tenderness Extremities: No pedal edema. No clubbing or cyanosis. Skin: No evidence of rash or vasculitis. Nervous System: Grossly non-focal. LABS Reviewed No results found for this or any previous visit. Lab Results Component Value Date CREATININE 0.97 03/13/2021 BUN 25 (H) 03/13/2021 NA 145 03/13/2021 K 3.0 (L) 03/13/2021 CL 107 03/13/2021 CO2 23 03/13/2021 Lab Results Component Value Date WBC 7.3 03/09/2021 HGB 11.2 03/09/2021 HCT 33.4 (L) 03/09/2021 MCV 92.3 03/09/2021 PLT 161 03/09/2021 Lab Results Component Value Date CALCIUM 8.7 (L) 03/13/2021 PHOS 3.7 03/12/2021 No results found for: IRON, TIBC, FERRITIN No results found for: [id number] Lab Results Component Value Date GFRAFRAM 73 03/13/2021 GFRNONAFRAM 64 03/13/2021 Results for orders placed during the hospital encounter of 03/05/21 US RENAL AND BLADDER Narrative CLINICAL HISTORY: -jie. COMPARISON: 12/30/2016. TECHNIQUE: US RENAL AND BLADDER on 03/05/2021 11:24 PM. FINDINGS: The kidneys were sonographically normal. The right kidney measured 8.2 x 6.2 x 4.5 cm while the left kidney measured 7.5 x 4.6 x 4.3 cm. There was no shadowing calculus, perinephric fluid collection, or hydronephrosis. The urinary bladder was decompressed by a Garza catheter. Impression : 1. No acute findings or abnormalities to explain the patient's symptoms Note: Radiology results need to be interpreted within a comprehensive clinical context. If you have questions about the radiology report, please contact the office of the ordering clinician. * Priyank Woodruff RN - 03/13/2021 5:55 PM EDT 03/13/[id number] Discharge Planning Evaluation Actual Discharge Plan 03/13/2021 CC Update spoke with patient about her discharge plan, she now wantsto go home and does not want to go to [facility]. Yarely contacted and informed of change of plans. Patient does not have a ride home, [facility] to [facility] discharge transportation tonight but they can not provide it until 03/14/2021 at 10am. Patient and charge nurse notifiedof discharge plan. CC final note. Final Note Discharge Round Completed Yes Discharge to Home with Family Transportation at discharge Ambulance Transportation Options Transportation Assistance Date Expected 03/14/21 Time Expected 1000 PASAR Completed Not Applicable Patient/Family Aware of Plan Yes MD Aware of Plan Yes RN Notified of Plan Yes Patient's goals for recovery [place] in self-care * Kenneth Reyes MD - 03/13/2021 2:32 PM EDT Name: Caroline Romero Date: 03/13/2021 : 1960 Age: 60 y.o. We are following patient due to renal failure Nephrology Progress Note Dr. Kenneth Reyes M.D [facility] Progress since last Visit Caroline Romero??is a 60 y.o.??WF admitted??with hypotension, weakness and fever and diagnosed with??Covid19. Her Scr increased from 1.1-1.3 to peak 3.46 and improved with IVF expansion, last Scr 0.97,??Na 145, K 3.7, Cl 108, CO12??23? PMHx??DM, HTN, CKD. Outpatient meds include tylenol, Albuterol, Lipitor, Wellbutrin, Neurontin, Insulin, Lisinopril, Prilosec, Zanaflex, Lopressor, Aldactone, E and Topamax. ?? Plan of Care ?? 1. JIE??on [id number] 1. Improving 2. Scr??down to 0.97 after??peak at 3.46 3. Metabolic acidosis 1. due to Topamax effect on AC resulting in RTA from bicarbonaturia 2. On Na bicarb 2. Hypokalemia 1. Replacing orally 3. Hypotension 1. Resolved 4. DM 1. Per primary team 5. Covid19 1. On RA 2. No Dexamethasone or Remdesivir Active Hospital Problems Diagnosis ??? *COVID-19 virus infection ??? Metabolic acidosis, NAG, bicarbonate losses ??? Chronic diarrhea ??? Diabetes mellitus (HCC) ??? Hypotension ??? Migraines ??? JIE (acute kidney injury) (HCC) ??? Essential hypertension Objective Physical Exam at 9:43 PM BP 135/57 (BP Location: Left arm, Patient Position: Semi Fowlers) Pulse 79 Temp 98.1 ??F (36.7 ??C) (Oral) Resp 18 Ht 5' (1.524 m) Wt 167 lb 5.3 oz (75.9 kg) SpO2 96% BMI 32.68 kg/m?? Wt Readings from Last 3 Encounters: 03/06/21 167 lb 5.3 oz (75.9 kg) 03/05/21 151 lb (68.5 kg) 03/05/21 151 lb (68.5 kg) General Appearance: Pleasant 60 y.o. w female in no acute distress. Head: Normocephalic. HEENT WNL. Eyes: SAMAN. Neck: No JVD at 45 degrees. Chest: Clear to auscultation and percussion. Heart: S1 and S2 rhythmic and regular without click, murmur, or rub. Abdomen: SNT. No organomegalies. Bowel sounds present. No abdominal bruits. Genitalia: Normal female genitalia. No CVA tenderness Extremities: No pedal edema. No clubbing or cyanosis. Skin: No evidence of rash or vasculitis. Nervous System: Grossly non-focal. LABS Reviewed with patient. Questions and concerns addressed. No results found for this or any previous visit. Lab Results Component Value Date CREATININE 1.07 03/12/2021 BUN 30 (H) 03/12/2021 NA 144 03/12/2021 K 3.7 03/12/2021 CL 109 (H) 03/12/2021 CO2 23 03/12/2021 Lab Results Component Value Date WBC 7.3 03/09/2021 HGB 11.2 03/09/2021 HCT 33.4 (L) 03/09/2021 MCV 92.3 03/09/2021 PLT 161 03/09/2021 Lab Results Component Value Date CALCIUM 8.7 (L) 03/12/2021 PHOS 3.7 03/12/2021 No results found for: IRON, TIBC, FERRITIN No results found for: [id number] Lab Results Component Value Date GFRAFRAM 65 03/12/2021 GFRNONAFRAM 57 (L) 03/12/2021 Results for orders placed during the hospital encounter of 03/05/21 US RENAL AND BLADDER Narrative CLINICAL HISTORY: -jie. COMPARISON: 12/30/2016. TECHNIQUE: US RENAL AND BLADDER on 03/05/2021 11:24 PM. FINDINGS: The kidneys were sonographically normal. The right kidney measured 8.2 x 6.2 x 4.5 cm while the left kidney measured 7.5 x 4.6 x 4.3 cm. There was no shadowing calculus, perinephric fluid collection, or hydronephrosis. The urinary bladder was decompressed by a Garza catheter. Impression : 1. No acute findings or abnormalities to explain the patient's symptoms Note: Radiology results need to be interpreted within a comprehensive clinical context. If you have questions about the radiology report, please contact the office of the ordering clinician. * Leanna Bell RN - 03/13/2021 1:52 PM EDT 03/13/21 1311 Ongoing Discharge Planning Evaluation Actual Discharge Plan 03/13/2021: CC: UPDATE. Chart reviewed. CC following for dc planning. Noted patient ready for discharge when rehab ready. Today is day #10 from COVID diagnosis. Spoke this morningto Hodan, this afternoon to [facility] at [facility]. No beds available today but Yarely will see if she has discharges for 03/14 and if they will have bed for patient and notify CC. No other new needs identified at this time. CC FOLLOWING. * Seb Quinonez MD - 03/13/2021 7:38 AM EDT Images from the original note were not included. PROGRESS NOTE Assessment/Plan: COVID-19 infection -Chest x-ray negative -Fevers??now resolved -Some hypoxemia now resolved -CRP improving -On p.o. Decadron, status post remdesivir x1 - 03/13 - room air ?? Acute on chronic diarrhea -Likely secondary to COVID-19 infection, unknown cause for chronic diarrhea -Now resolved 03/12 ?? Dehydration -P.o. intake improving ?? Acute on chronic renal failure -Improved/resolved, creatinine now back to baseline ?? Hypotension -Resolved -Status post 3 L IV fluid bolus and brief pressors ?? Fevers -Secondary??to??COVID-19 infection -UA and chest x-ray negative??and normal WBCs and blood cultures negative -Now resolved ?? Hypoxemia -Secondary to COVID-19 infection -Chest x-ray remains clear -Now??resolved, O2 sat stable on room air ?? Hypertension - 03/13 - at goal ?? Dyslipidemia ?? Type 2 diabetes mellitus -Blood sugars elevated likely secondary to steroids, but now controlled with current insulin regimen - 03/13 - variable control ?? Mood disorder ?? Migraine headaches ?? Chronic pain syndrome ?? Mild thrombocytopenia -Stable ?? Hypokalemia secondary to diarrhea -Resolved ?? Hypomagnesemia -Resolved ?? Hypophosphatemia -Resolved ?? Nausea -Likely secondary to COVID-19 infection, now improved 03/13?? Dispo: Inpatient rehab [facility] Prophylaxis: Qualifying Pharmacologic Prophylaxis enoxaparin (LOVENOX) injection 40 mg DAILY - LMWH/Xa Active Hospital Problems Diagnosis ??? *COVID-19 virus infection ??? Metabolic acidosis, NAG, bicarbonate losses ??? Chronic diarrhea ??? Diabetes mellitus (HCC) ??? Hypotension ??? Migraines ??? JIE (acute kidney injury) (HCC) ??? Essential hypertension Subjective: Feels better, no worsening dyspnea Objective: BP 100/53 (BP Location: Left arm, Patient Position: Semi Fowlers) Pulse 59 Temp 97.4 ??F (36.3 ??C) (Oral) Resp 16 Ht 5' (1.524 m) Wt 167 lb 5.3 oz (75.9 kg) SpO2 92% BMI 32.68 kg/m?? I/O last 3 completed shifts: In: 600 [P.O.:600] Out: 550 [Urine:550] Weight: 167 lb 5.3 oz (75.9 kg) Gen: no acute distress, alert, oriented, HEENT: atraumatic, normocephalic,PERRLA EOMI, no JVD, Cardiovascular: RRR without murmurs, rubs, or gallops Lungs: CTA, no wheezing, crackles, or rhonchi, no accessory muscle use Abdomen: positive bowel sounds, soft, non-tender to palpation, no hepatosplenomegaly appreciated, no masses Extremities: no cyanosis, clubbing or edema Neuro: no focal neurological deficits, strength and sensation normal, Skin: clear, dry, and intact, no rashes Psyche: Normal mood and affect Heme: No bleeding or bruising Musculoskeletal: No muscle or joint pain or redness Labs: Laboratory data and diagnostic testing reviewed 03/13/21. Seb Quinonez MD 03/13/2021 7:38 AM * Herbie Haider MD - 03/12/2021 11:55 AM EDT Images from the original note were not included. PROGRESS NOTE Handoff Completed:Yes Admitted on 03/05/2021 with COVID-19 infection. Chest x-ray negative. Had fevers and diarrhea. Theseare now resolved. Did have mild hypoxemia which is now resolved after p.o. Decadron started. Received 1 dose of remdesivir but did not need to complete course of this. Now awaiting inpatient rehab facility Assessment/Plan: COVID-19 infection -Chest x-ray negative -Fevers??now resolved -Some hypoxemia now resolved -CRP improving -On p.o. Decadron, status post remdesivir x1 ?? Acute on chronic diarrhea -Likely secondary to COVID-19 infection, unknown cause for chronic diarrhea -Now resolved ?? Dehydration -P.o. intake improving ?? Acute on chronic renal failure -Improved/resolved, creatinine now back to baseline ?? Hypotension -Resolved -Status post 3 L IV fluid bolus and brief pressors ?? Fevers -Secondary??to??COVID-19 infection -UA and chest x-ray negative??and normal WBCs and blood cultures negative -Now resolved ?? Hypoxemia -Secondary to COVID-19 infection -Chest x-ray remains clear -Now resolved, O2 sat stable on room air ?? Hypertension ?? Dyslipidemia ?? Type 2 diabetes mellitus -Blood sugars elevated likely secondary to steroids, but now controlled with current insulin regimen ?? Mood disorder ?? Migraine headaches ?? Chronic pain syndrome ?? Mild thrombocytopenia -Stable ?? Hypokalemia secondary to diarrhea -Resolved ?? Hypomagnesemia -Resolved ?? Hypophosphatemia -Resolved ?? Nausea -Likely secondary to COVID-19 infection, now improved ?? Plan: Continue Decadron, complete 10-day course Accu-Cheks/SSI/Lantus GI consulted, working up chronic diarrhea, follow-up outpatient Resumed??home beta-mandi, continue to hold home lisinopril/Aldactone Monitor p.o. intake Replaced??electrolytes Imodium for diarrhea Continue probiotics P.o. Phenergan for nausea Subcu??Lovenox??for DVT prophylaxis PT eval??noted, inpatient rehab facility recommended Discharge to inpatient rehab facility when arranged VTE Prophylaxis: Qualifying Pharmacologic Prophylaxis enoxaparin (LOVENOX) injection 40 mg DAILY - LMWH/Xa Active Hospital Problems Diagnosis ??? *COVID-19 virus infection ??? Metabolic acidosis, NAG, bicarbonate losses ??? Chronic diarrhea ??? Diabetes mellitus (HCC) ??? Hypotension ??? Migraines ??? JIE (acute kidney injury) (HCC) ??? Essential hypertension Subjective: No new complaints. Comfortable. No shortness of breath. Objective: BP 113/70 (Patient Position: Semi Fowlers) Pulse 60 Temp 97.5 ??F (36.4 ??C) (Oral) Resp 16 Ht 5' (1.524 m) Wt 167 lb 5.3 oz (75.9 kg) SpO2 93% BMI 32.68 kg/m?? I/O last 3 completed shifts: In: 600 [P.O.:600] Out: - Weight: 167 lb 5.3 oz (75.9 kg) Constitutional: Alert and oriented to person, place, and time. No distress. Cardiovascular: Normal rate and regular rhythm. Exam reveals no friction rub. No murmur heard. Pulmonary/Chest: Effort normal and breath sounds normal. No respiratory distress. There are no wheezes. Abdominal: Soft. Bowel sounds are normal. No distension. There is no tenderness. There is no rebound and no guarding. Musculoskeletal: No edema. Neurological: Grossly normal. Skin: Skin is warm and dry. No erythema. Labs: Laboratory data and diagnostic testing reviewed 03/12/21. Herbie Haider MD 03/12/2021 11:55 AM * Jarad Harvey MD - 03/12/2021 9:02 AM EDT Images from the original note were not included. [facility] Jarad Harvey MD PATIENT NAME: Caroline Romero : 1960 MEDICAL RECORD: [id number] HOSPITAL ROOM # [id number] PRIMARY PROVIDER Lupillo Garcia MD History of Present Illness Caroline Romero is a(n)60 y.o. female admitted on 03/05/2021. We are following for JIE Interval History Caroline Romero??is a 60 y.o.??WF admitted??with hypotension, weakness and fever and diagnosed with??Covid19. Her Scr increased from 1.1-1.3 to peak 3.46 and improved with IVF expansion, last Scr 1.20,??Na 140, K 3.7, Cl 108, CO12??17? PMHx??DM, HTN, CKD. Outpatient meds include tylenol, Albuterol, Lipitor, Wellbutrin, Neurontin, Insulin, Lisinopril, Prilosec, Zanaflex, Lopressor, Aldactone, E and Topamax. ?? Plan of Care ?? 1. JIE??on [id number] 1. Improving 2. Scr??down to 1.24 after??peak at 3.46 3. Metabolic acidosis 1. due to Topamax effect on AC resulting in RTA from bicarbonaturia 2. On Na bicarb 2. Hypotension 1. Resolved 3. DM 1. Per primary team 4. Covid19 1. On RA 2. No Dexamethasone or Remdesivir ?? Past 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: Diagnosis Date ??? Asthma ??? Depression ??? Diabetes mellitus (HCC) ??? Encounter for blood transfusion ??? Headache(784.0) ??? Heart murmur ??? Heartburn ??? Syncope and collapse ??? Unspecified sleep apnea no machine Past Surgical History: Procedure Laterality Date ??? BACK SURGERY ??? FOOT SURGERY right x2 left x1 ??? HAND SURGERY LCTR left trigger finger ??? HIATAL HERNIA REPAIR x3 ??? HYSTERECTOMY ??? KNEE ARTHROSCOPY Left 08/19/2013 Left Knee Arthroscopy Partial Medial Meniscectomy Chondrplasty Patella Femoral condyle; Surgeon: Alexander Whittington MD; Location: [facility] OR; Service: Orthopedics ??? KNEE SURGERY right knee scope No family history on file. Advil [ibuprofen], Sharmaine [fexofenadine], Augmentin [amoxicillin-pot clavulanate], Axid [nizatidine], Compazine [prochlorperazine], Darvocet a500 [propoxyphene n-acetaminophen], Reglan [metoclopramide], Toradol [ketorolac], Tramadol, and Zofran odt [ondansetron] SOCIAL HISTORY Social History Socioeconomic History ??? Marital status: Spouse name: Not on file ??? Number of children: Not on file ??? Years of education: Not on file ??? Highest education level: Not on file Tobacco Use ??? Smoking status: Never Smoker ??? Smokeless tobacco: Never Used Substance and Sexual Activity ??? Alcohol use: No ??? Drug use: No Social Determinants of Health Financial Resource Strain: ??? Difficulty of Paying Living Expenses: Food Insecurity: ??? Worried About Running Out of Food in the Last Year: ??? Ran Out of Food in the Last Year: Transportation Needs: ??? Lack of Transportation (Medical): ??? Lack of Transportation (Non-Medical): Physical Activity: ??? Days of Exercise per Week: ??? Minutes of Exercise per Session: Stress: ??? Feeling of Stress : Social Connections: ??? Frequency of Communication with Friends and Family: ??? Frequency of Social Gatherings with Friends and Family: ??? Attends Bahai Services: ??? Active Member of Clubs or Organizations: ??? Attends Club or Organization Meetings: ??? Marital Status: Intimate Partner Violence: ??? Fear of Current or Ex-Partner: ??? Emotionally Abused: ??? Physically Abused: ??? Sexually Abused: Medications Scheduled Meds: ??? buPROPion 150 mg Oral BID ??? dexAMETHasone 6 mg Oral Daily Or ??? dexAMETHasone 6 mg Intravenous Daily ??? enoxaparin 40 mg Subcutaneous Daily - LMWH/Xa ??? gabapentin 100 mg Oral TID ??? insulin aspart U-100 1-10 Units Subcutaneous QID WM ??? insulin aspart (NovoLOG) Nutritional (prandial) insulin (Orderable) 5 Units Subcutaneous TID WM ??? insulin glargine 16 Units Subcutaneous QAM (Insulin) ??? metoprolol 25 mg Oral BID ??? miconazole Topical 2 times per day ??? pantoprazole (PROTONIX) 40 mg Intravenous Daily Or ??? pantoprazole 40 mg Oral Daily ??? Saccharomyces boulardii 250 mg Oral BID ??? sodium bicarbonate 650 mg Oral BID ??? sodium chloride 0.9% 10 mL Intravenous 3 times per day Continuous Infusions: ??? sodium chloride 0.9 % REVIEW OF SYSTEMS Patient denies having problems with headaches, dizziness, trouble swallowing, visual disturbances, hearing loss, cough or chest pain. Patient does not have any abdominal pain, nausea, vomiting, diarrhea, blood in the stool, difficulty with urination, weakness or numbness in the legs. No calf swelling or joint tenderness. Please refer to Interval History above for acute problems mentioned and addressed. Objective: BP 134/66 (Patient Position: Semi Fowlers) Pulse 70 Temp 97.8 ??F (36.6 ??C) (Oral) Resp 16 Ht 5' (1.524 m) Wt 167 lb 5.3 oz (75.9 kg) SpO2 94% BMI 32.68 kg/m?? Intake/Output Summary (Last 24 hours) at 03/12/2021 1532 Last data filed at 03/12/2021 1400 Gross per 24 hour Intake 480 ml Output 350 ml Net 130 ml General appearance : awake alert no acute distress Head: atraumatic HEENT PERRL, EOMI Neck: supple, no JVD Present. No Bruit Lungs: rhonchi in bases, otherwise clear Heart: S1 S2 normal. No murmurs Abdomen: Soft NT. No organanomegaly Extremities: no EDEMA LE Neuro: A&O x3. No gross abnormality. MusuloSkeletal ; No acute arthritis or Synovitis HEMODYNAMIC DATA BP Min: 108/59 Max: 138/74 Pulse Av.6 Min: 54 Max: 70 I/O last 3 completed shifts: In: 480 [P.O.:480] Out: 350 [Urine:350] Wt Readings from Last 2 Encounters: 03/06/21 167 lb 5.3 oz (75.9 kg) 03/05/21 151 lb (68.5 kg) Wt Reading from Admission: 03/05/2021 151 lb (68.5 kg) BLOOD GAS & ACID BASE DATA SpO2 Av % Min: 93 % Max: 96 % Lab Results Component Value Date/Time ANIONGAP 12 03/12/2021 04:31 AM RENAL & METABOLIC DATA Lab Results Component Value Date/Time GLU 238 (H) 03/12/2021 04:31 AM BUN 30 (H) 03/12/2021 04:31 AM CREATININE 1.07 03/12/2021 04:31 AM NA 144 03/12/2021 04:31 AM K 3.7 03/12/2021 04:31 AM CL 109 (H) 03/12/2021 04:31 AM CO2 23 03/12/2021 04:31 AM CALCIUM 8.7 (L) 03/12/2021 04:31 AM MG 1.6 03/12/2021 04:31 AM PHOS 3.7 03/12/2021 04:31 AM GFRAFRAM 65 03/12/2021 04:31 AM CBC Lab Results Component Value Date WBC 7.3 03/09/2021 HGB 11.2 03/09/2021 HCT 33.4 (L) 03/09/2021 PLT 161 03/09/2021 RBC 3.62 (L) 03/09/2021 Imaging: CXR reviewed, see results Thank you for letting me participate in your patient care. Please do not hesitate to call if any questions. Jarad Harvey MD Nephrology * Stefani Orantes RN - 03/11/2021 4:55 PM EDT Pt. awaiting placement. Airborne and contact precautions in place as ordered. Vitals stable on RA. Up with assist. Bed alarm in use. * Herbie Haider MD - 03/11/2021 11:29 AM EDT Images from the original note were not included. PROGRESS NOTE Assessment/Plan: COVID-19 infection -Chest x-ray negative -Fevers now resolved -Some hypoxemia yesterday now improved -CRP improving ?? Acute on chronic diarrhea -Likely secondary to COVID-19 infection, unknown cause for chronic diarrhea -Now resolved ?? Dehydration -P.o. intake improving ?? Acute on chronic renal failure -Improved/resolved, creatinine now back to baseline ?? Hypotension -Resolved -Status post 3 L IV fluid bolus and brief pressors ?? Fevers -Secondary??to??COVID-19 infection -UA and chest x-ray negative??and normal WBCs and blood cultures negative -Now resolved ?? Hypoxemia -Secondary to COVID-19 infection -Chest x-ray remains clear -Now resolved, O2 sat stable on room air ?? Hypertension ?? Dyslipidemia ?? Type 2 diabetes mellitus -Blood sugars elevated likely secondary to steroids, but now controlled with current insulin regimen ?? Mood disorder ?? Migraine headaches ?? Chronic pain syndrome ?? Mild thrombocytopenia -Stable ?? Hypokalemia secondary to diarrhea -Resolved ?? Hypomagnesemia -Resolved ?? Hypophosphatemia -Resolved ?? Nausea -Likely secondary to COVID-19 infection, now improved ?? Plan: Continue Decadron, complete 10-day course Accu-Cheks/SSI/Lantus GI consulted, working up chronic diarrhea, follow-up outpatient Resumed??home beta-mandi, continue to hold home lisinopril/Aldactone Monitor p.o. intake Replaced??electrolytes Imodium for diarrhea Continue probiotics P.o. Phenergan for nausea Subcu Lovenox for DVT prophylaxis PT eval??noted, inpatient rehab facility recommended Discharge to inpatient rehab facility when arranged VTE Prophylaxis: Qualifying Pharmacologic Prophylaxis enoxaparin (LOVENOX) injection 40 mg DAILY - LMWH/Xa Active Hospital Problems Diagnosis ??? *COVID-19 virus infection ??? Metabolic acidosis, NAG, bicarbonate losses ??? Chronic diarrhea ??? Diabetes mellitus (HCC) ??? Hypotension ??? Migraines ??? JIE (acute kidney injury) (HCC) ??? Essential hypertension Subjective: No complaints. No further diarrhea. Fevers resolved. Objective: BP 132/69 (BP Location: Right arm, Patient Position: Semi Fowlers) Pulse 62 Temp 97.6 ??F (36.4??C) (Axillary) Resp 18 Ht 5' (1.524 m) Wt 167 lb 5.3 oz (75.9 kg) SpO2 97% BMI 32.68 kg/m?? I/O last 3 completed shifts: In: 331.5 [P.O.:240; I.V.:91.5] Out: 300 [Urine:300] Weight: 167 lb 5.3 oz (75.9 kg) Constitutional: Alert and oriented to person, place, and time. No distress. Cardiovascular: Normal rate and regular rhythm. Exam reveals no friction rub. No murmur heard. Pulmonary/Chest: Effort normal and breath sounds normal. No respiratory distress. There are no wheezes. Abdominal: Soft. Bowel sounds are normal. No distension. There is no tenderness. There is no rebound and no guarding. Musculoskeletal: No edema. Neurological: Grossly normal. Skin: Skin is warm and dry. No erythema. Labs: Laboratory data and diagnostic testing reviewed 03/11/21. Herbie Haider MD 03/11/2021 11:29 AM * Jarad Harvey MD - 03/11/2021 7:08 AM EDT Images from the original note were not included. [facility] Jarad Harvey MD PATIENT NAME: Caroline Romero : 1960 MEDICAL RECORD: [id number] HOSPITAL ROOM # [id number] PRIMARY PROVIDER Lupillo Garcia MD History of Present Illness Caroline Romero is a(n)60 y.o. female admitted on 03/05/2021. We are following for JIE Interval History Caroline Romero??is a 60 y.o.??WF admitted??with hypotension, weakness and fever and diagnosed with??Covid19. Her Scr increased from 1.1-1.3 to peak 3.46 and improved with IVF expansion, last Scr 1.20, Na 140, K 3.7, Cl 108, CO12??17? PMHx??DM, HTN, CKD. Outpatient meds include tylenol, Albuterol, Lipitor, Wellbutrin, Neurontin, Insulin, Lisinopril, Prilosec, Zanaflex, Lopressor, Aldactone, E and Topamax. ?? Plan of Care ?? 1. JIE??on [id number] 1. Improving 2. Scr??down to 1.24 after??peak at 3.46 3. Metabolic acidosis 1. due to Topamax effect on AC resulting in RTA from bicarbonaturia 2. On Na bicarb 2. Hypotension 1. Resolved 3. DM 1. Per primary team 4. Covid19 1. On RA 2. No Dexamethasone or Remdesivir Past 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: Diagnosis Date ??? Asthma ??? Depression ??? Diabetes mellitus (HCC) ??? Encounter for blood transfusion ??? Headache(784.0) ??? Heart murmur ??? Heartburn ??? Syncope and collapse ??? Unspecified sleep apnea no machine Past Surgical History: Procedure Laterality Date ??? BACK SURGERY ??? FOOT SURGERY right x2 left x1 ??? HAND SURGERY LCTR left trigger finger ??? HIATAL HERNIA REPAIR x3 ??? HYSTERECTOMY ??? KNEE ARTHROSCOPY Left 08/19/2013 Left Knee Arthroscopy Partial Medial Meniscectomy Chondrplasty Patella Femoral condyle; Surgeon: Alexander Whittington MD; Location: [facility]; Service: Orthopedics ??? KNEE SURGERY right knee scope No family history on file. Advil [ibuprofen], Sharmaine [fexofenadine], Augmentin [amoxicillin-pot clavulanate], Axid [nizatidine], Compazine [prochlorperazine], Darvocet a500 [propoxyphene n-acetaminophen], Reglan [metoclopramide], Toradol [ketorolac], Tramadol, and Zofran odt [ondansetron] SOCIAL HISTORY Social History Socioeconomic History ??? Marital status: Spouse name: Not on file ??? Number of children: Not on file ??? Years of education: Not on file ??? Highest education level: Not on file Tobacco Use ??? Smoking status: Never Smoker ??? Smokeless tobacco: Never Used Substance and Sexual Activity ??? Alcohol use: No ??? Drug use: No Social Determinants of Health Financial Resource Strain: ??? Difficulty of Paying Living Expenses: Food Insecurity: ??? Worried About Running Out of Food in the Last Year: ??? Ran Out of Food in the Last Year: Transportation Needs: ??? Lack of Transportation (Medical): ??? Lack of Transportation (Non-Medical): Physical Activity: ??? Days of Exercise per Week: ??? Minutes of Exercise per Session: Stress: ??? Feeling of Stress : Social Connections: ??? Frequency of Communication with Friends and Family: ??? Frequency of Social Gatherings with Friends and Family: ??? Attends Bahai Services: ??? Active Member of Clubs or Organizations: ??? Attends Club or Organization Meetings: ??? Marital Status: Intimate Partner Violence: ??? Fear of Current or Ex-Partner: ??? Emotionally Abused: ??? Physically Abused: ??? Sexually Abused: Medications Scheduled Meds: ??? buPROPion 150 mg Oral BID ??? dexAMETHasone 6 mg Oral Daily Or ??? dexAMETHasone 6 mg Intravenous Daily ??? enoxaparin 40 mg Subcutaneous Daily - LMWH/Xa ??? gabapentin 100 mg Oral TID ??? insulin aspart U-100 1-5 Units Subcutaneous QID WM ??? insulin glargine 0.15 Units/kg Subcutaneous QAM (Insulin) ??? metoprolol 25 mg Oral BID ??? miconazole Topical 2 times per day ??? pantoprazole (PROTONIX) 40 mg Intravenous Daily Or ??? pantoprazole 40 mg Oral Daily ??? Saccharomyces boulardii 250 mg Oral BID ??? sodium bicarbonate 650 mg Oral BID ??? sodium chloride 0.9% 10 mL Intravenous 3 times per day Continuous Infusions: ??? sodium chloride 0.9 % REVIEW OF SYSTEMS Patient denies having problems with headaches, dizziness, trouble swallowing, visual disturbances, hearing loss, cough or chest pain. Patient does not have any abdominal pain, nausea, vomiting, diarrhea, blood in the stool, difficulty with urination, weakness or numbness in the legs. No calf swelling or joint tenderness. Please refer to Interval History above for acute problems mentioned and addressed. Objective: BP 127/64 (BP Location: Right arm, Patient Position: Semi Fowlers) Pulse 59 Temp 97.4 ??F (36.3??C) (Oral) Resp 17 Ht 5' (1.524 m) Wt 167 lb 5.3 oz (75.9 kg) SpO2 97% BMI 32.68 kg/m?? Intake/Output Summary (Last 24 hours) at 03/10/20211950 Last data filed at 03/10/2021 1341 Gross per 24 hour Intake 91.49 ml Output -- Net 91.49 ml General appearance : awake alert no acute distress Head: atraumatic HEENT PERRL, EOMI Neck: supple, no JVD Present. No Bruit Lungs: rhonchi in bases, otherwise clear Heart: S1 S2 normal. No murmurs Abdomen: Soft NT. No organanomegaly Extremities: no EDEMA LE Neuro: A&O x3. No gross abnormality. MusuloSkeletal ; No acute arthritis or Synovitis HEMODYNAMIC DATA BP Min: 108/59 Max: 131/56 Pulse Av.3 Min: 58 Max: 77 I/O last 3 completed shifts: In: 91.5 [I.V.:91.5] Out: - Wt Readings from Last 2 Encounters: 03/06/21 167 lb 5.3 oz (75.9 kg) 03/05/21 151 lb (68.5 kg) Wt Reading from Admission: 03/05/2021 151 lb (68.5 kg) BLOOD GAS & ACID BASE DATA SpO2 Av.2 % Min: 95 % Max: 98 % Lab Results Component Value Date/Time ANIONGAP 17 (H) 03/10/2021 07:41 AM RENAL & METABOLIC DATA Lab Results Component Value Date/Time GLU 193 (H) 03/10/2021 07:41 AM BUN 29 (H) 03/10/2021 07:41 AM CREATININE 1.06 03/10/2021 07:41 AM NA 141 03/10/2021 07:41 AM K 3.8 03/10/2021 07:41 AM CL 108 (H) 03/10/2021 07:41 AM CO2 16 (L) 03/10/2021 07:41 AM CALCIUM 9.0 03/10/2021 07:41 AM MG 1.8 03/09/2021 07:42 AM PHOS 2.8 03/09/2021 07:42 AM GFRAFRAM 66 03/10/2021 07:41 AM CBC Lab Results Component Value Date WBC 7.3 03/09/2021 HGB 11.2 03/09/2021 HCT 33.4 (L) 03/09/2021 PLT 161 03/09/2021 RBC 3.62 (L) 03/09/2021 Imaging: CXR reviewed, see results Thank you for letting me participate in your patient care. Please do not hesitate to call if any questions. Jarad Harvey MD Nephrology * Tatiana Frausto MSW - 03/10/2021 12:00 PM EDT 03/10 SW Update: note PT recommendation of Inpatient Rehab Facility (IRF). Note pt is alert and oriented X4. SW called and spoke to pt via phone and discussed. Pt states interest in IRF at d/c. SW discussed facility options. Pt states interest in [facility]. Referral sent. Awaiting response. Pt requested SW call and update her on above. SW called and spoke to Antonio and updated on above. Antonio states understanding and agreeability to above d/c plan. Antonio states no other d/cneeds. Pt states no other needs at this time. SW/CC following * Herbie Haider MD - 03/10/2021 10:20 AM EDT Images from the original note were not included. PROGRESS NOTE Assessment/Plan: COVID-19 infection -Chest x-ray negative -Fevers now resolved -Some hypoxemia yesterday now improved -CRP improving ?? Acute on chronic diarrhea -Likely secondary to COVID-19 infection, unknown cause for chronic diarrhea -Improved ?? Dehydration -P.o. intake improving ?? Acute on chronic renal failure -Improved/resolved, creatinine now back to baseline ?? Hypotension -Resolved -Status post 3 L IV fluid bolus and brief pressors ?? Fevers -Secondary??to??COVID-19 infection -UA and chest x-ray negative??and normal WBCs and blood cultures negative -Now resolved Hypoxemia -Secondary to COVID-19 infection -Chest x-ray remains clear -Now improving ?? Hypertension ?? Dyslipidemia ?? Type 2 diabetes mellitus -Blood sugars now elevated likely secondary to steroids ?? Mood disorder ?? Migraine headaches ?? Chronic pain syndrome ?? Mild thrombocytopenia -Stable ?? Hypokalemia secondary to diarrhea -Resolved ?? Hypomagnesemia -Resolved ?? Hypophosphatemia -Resolved Nausea -Likely secondary to COVID-19 infection ?? Plan: Continue remdesivir and Decadron for now, started yesterday due to COVID-19 and hypoxemia Accu-Cheks/SSI, add Lantus GI consulted, working up chronic diarrhea, follow-up outpatient Resumed??home beta-mandi, continue to hold home lisinopril/Aldactone Monitor p.o. intake Replaced electrolytes Imodium for diarrhea Continue probiotics P.o. Phenergan for nausea Subcu Lovenox for DVT prophylaxis PT eval noted, inpatient rehab facility recommended VTE Prophylaxis: Qualifying Pharmacologic Prophylaxis enoxaparin (LOVENOX) injection 40 mg DAILY - LMWH/Xa Active Hospital Problems Diagnosis ??? *COVID-19 virus infection ??? Metabolic acidosis, NAG, bicarbonate losses ??? Chronic diarrhea ??? Diabetes mellitus (HCC) ??? Hypotension ??? Migraines ??? JIE (acute kidney injury) (HCC) ??? Essential hypertension Subjective: Complaining of nausea which she has had intermittently for the last couple weeks. Ate dinner last night. No abdominal pain or vomiting. No further diarrhea. Objective: BP 129/68 (BP Location: Right arm, Patient Position: Semi Fowlers) Pulse 62 Temp 97.6 ??F (36.4??C) (Oral) Resp 17 Ht 5' (1.524 m) Wt 167 lb 5.3 oz (75.9 kg) SpO2 95% BMI 32.68 kg/m?? No intake/output data recorded. Weight: 167 lb 5.3 oz (75.9 kg) Constitutional: Alert and oriented to person, place, and time. No distress. Cardiovascular: Normal rate and regular rhythm. Exam reveals no friction rub. No murmur heard. Pulmonary/Chest: Effort normal and breath sounds normal. No respiratory distress. There are no wheezes. Abdominal: Soft. Bowel sounds are normal. No distension. There is no tenderness. There is no rebound and no guarding. Musculoskeletal: No edema. Neurological: Grossly normal. Skin: Skin is warm and dry. No erythema. Labs: Laboratory data and diagnostic testing reviewed 03/10/21. Herbie Haider MD 03/10/2021 10:20 AM * Lynn Treviño, PT - 03/09/2021 12:51 PM EDT 03/09/21 1243 PT Subjective Note Type Evaluation Patient Room/Unit 3312 Discharge Information Evaluation to serve as discharge summary if no further treatment provided before the facility discharge Admitting Diagnosis 60 y.o. female with history of asthma, sleep apnea, diabetes, depression and recently diagnosed COVID-19 presents to the ED via wheelchair from the infusion center with hypotension. She was seen in the ED two days ago with concern for COVID-19 with multiple family members positive. She reported chest pain, shortness of breath, cough, nausea, vomiting, and diarrhea. She has notbeen vaccinated. Covid test was positive and chest x-ray was clear. CBC and BMP unremarkable. No hypoxia. She was referred for monoclonal antibody treatment. Past Med Hx reviewed med hx has a past medical history of Asthma, Depression, Diabetes mellitus (HCC), Encounter for blood transfusion, Headache(784.0), Heart murmur, Heartburn, Syncope and collapse,and Unspecified sleep apnea. has a past surgical history that includes back surgery; knee surgery; Foot surgery; Hand surgery; hiatal hernia repair; Hysterectomy; and Knee arthroscopy (Left, 08/19/2013). Pain Screening Additional Comments achy all over Cognition Orientation Intact Arousal Normal Safety Awareness Normal Affect/Ability to cope Normal Command Following Normal Communication Intact Precautions Therapy Precautions Yes Precaution Info Given Yes;Contact;Airborne;To use call light to request assistance with all mobility PT/OT Personal Protective Equipment Gloves;Gown;Surgical mask;Face shield;N95 respirator;Hair cover Home Living/Prior Function Type of Home House Number of Steps 8 Home Equipment None Lives With Spouse;Family;Son;Daughter Fall History No falls in the last three months Observation Presentation Patient resting in bed Observation monitoring analyst;Bed alarm UE Assessment LUE Additional Comments generalized weakness x4 Bed Mobility Rolling With verbal cues;Contact guard assist Supine to Sit With verbal cues;Contact guard assist Sit to Supine With verbal cues;Contact guard assist Transfers Sit to Stand With verbal cues;Contact guard assist Stand to Sit With verbal cues;Contact guard assist Bed to/from chair With verbal cues;Contact guard assist Gait Gait Contact guard assist;With verbal cues Gait Distance (Feet) 20 Feet (2 walks) Assistive Device 2 Wheel walker Additional Comments unsteady w/o AD Vitals SPO2 85 on RA, coughing continuously, easily fatigued, poor activty tolerance AM PAC: How much help from another person does the patient currently need... turning from your back to your side while in a flat bed without using bedrails? 3 moving from lying on your back to sitting on the side of a flat bed without using bedrails? 3 moving to and from a bed to a chair? 3 standing up from a chair using your arms (e.g. wheelchair, or bedside chair)? 3 need to walk in hospital room? 3 climbing 3-5 steps with a railing? 2 AM PAC: BASIC MOBILITY SCORING AM PAC Moblity Raw Score 17 AM PAC Mobility CMS 0-100% Functional Percentage 43.83 AM PAC Mobility CMS G Code Modifier CK Balance Sitting Balance 3+/5 sits without UE support for 30 seconds or greater Standing Balance 2/5 indep, requires both UE support Education Education To use call light to request assistance with all mobility;Role of Therapy;Safety with mobility;Cues for proper technique;Discharge planning;Up with assistance only Patient Safety Patient Safety Patient left in chair with needs in reach;Chair/personal alarm activated Assessment Assessment Decreased gait;Decreased functional mobility;Decreased balance;Decreased Right Upper Extremity strength;Decreased RightLower Extremity strength;Decreased Left Upper Extremity strength;Decreased activity tolerance ;Decreased Left Lower Extremity strength;Decreased endurance Prognosis Fair;With continued PT s/p acute discharge Rationale for Skilled Therapy Fall Risk;Balance Deficits;Not safe with independent transfers;Not safe ambulating independently Goals Patient and/or Family Goal to go to rehab PT GOALS (Yes/No) Yes Add Goals Will Perform Supine To Sit Supervision Will Transfer Bed/Chair With appropriate assistive device;Supervision Will Ambulate With 2 wheel walker;31-50 feet;51-100 feet;With stand by assist;With least restrictive assistive device Will Tolerate Exercise 6-10 reps;With verbal cues required/provided Goal Formulation With patient Time for Goal Achievement/Duration of Treatment 7 sessions Plan Treatment/Interventions Gait training;Bed mobility;Balance training;Functional transfer training;LEstrengthening/ROM;Increase activity tolerance ;Endurance training PT Frequency 3-5x/week Recommendation PT Recommendation Inpatient Rehab Facility (IRF) Therapy Equipment Recommended 2 Wheel walker Time In / Time Out [id number] IP PT Evaluation Minutes 15 IP PT Treatment Minutes 31 The total time spent caring for this patient included but was not limited to medical record review;hands-on treatment * Kenneth Reyes MD - 03/09/2021 12:33 PM EDT Name: Caroline Romero Date: 03/09/2021 : 1960 Age: 60 y.o. We are following patient due to renal failure Nephrology Progress Note Dr. Kenneth Reyes M.D [facility] Progress since last Visit Caroline Romero??is a 60 y.o.??WF admitted with hypotension, weakness and fever and diagnosed with Covid19. Her Scr increased from 1.1-1.3 to peak 3.46 and improved with IVF expansion, last Scr 1.20,Na 140, K 3.7, Cl 108, CO12 17? PMHx DM, HTN, CKD. Outpatient meds include tylenol, Albuterol, Lipitor, Wellbutrin, Neurontin, Insulin, Lisinopril, Prilosec, Zanaflex, Lopressor, Aldactone, E and Topamax. Plan of Care ?? 1. JIE??on [id number] 1. Improving 2. Scr down to 1.24 after peak at 3.46 3. Metabolic acidosis 1. due to Topamax effect on AC resulting in RTA from bicarbonaturia 2. On Na bicarb 2. Hypotension 1. Resolved 3. DM 1. Per primary team 4. Covid19 1. On RA 2. No Dexamethasone or Remdesivir ?? Available labs were discussed with patient and family. Active Hospital Problems Diagnosis ??? *COVID-19 virus infection ??? Metabolic acidosis, NAG, bicarbonate losses ??? Chronic diarrhea ??? Diabetes mellitus (HCC) ??? Hypotension ??? Migraines ??? JIE (acute kidney injury) (HCC) ??? Essential hypertension Objective Physical Exam at 9:43 PM BP 111/55 (BP Location: Right arm, Patient Position: Semi Fowlers) Pulse 69 Temp 99.3 ??F (37.4??C) (Oral) Resp 16 Ht 5' (1.524 m) Wt 167 lb 5.3 oz (75.9 kg) SpO2 95% BMI 32.68 kg/m?? Wt Readings from Last 3 Encounters: 03/06/21 167 lb 5.3 oz (75.9 kg) 03/05/21 151 lb (68.5 kg) 03/05/21 151 lb (68.5 kg) General Appearance: Pleasant 60 y.o. w female in no acute distress. Head: Normocephalic. HEENT WNL. Eyes: SAMAN. Neck: No JVD at 45 degrees. Chest: Clear to auscultation and percussion. Heart: S1 and S2 rhythmic and regular without click, murmur, or rub. Abdomen: SNT. No organomegalies. Bowel sounds present. No abdominal bruits. Genitalia: Normal female genitalia. No CVA tenderness Extremities: No pedal edema. No clubbing or cyanosis. Skin: No evidence of rash or vasculitis. Nervous System: Grossly non-focal. LABS Reviewed with patient. Questions and concerns addressed. No results found for this or any previous visit. Lab Results Component Value Date CREATININE 1.24 03/08/2021 BUN 18 03/08/2021 NA 140 03/08/2021 K 3.8 03/08/2021 CL 108 (H) 03/08/2021 CO2 17 (L) 03/08/2021 Lab Results Component Value Date WBC 7.7 03/08/2021 HGB 11.4 03/08/2021 HCT 33.7 (L) 03/08/2021 MCV 91.1 03/08/2021 PLT 142 (L) 03/08/2021 Lab Results Component Value Date CALCIUM 8.2 (L) 03/08/2021 PHOS 1.9 (L) 03/08/2021 No results found for: IRON, TIBC, FERRITIN No results found for: [id number] Lab Results Component Value Date GFRAFRAM 55 (L) 03/08/2021 GFRNONAFRAM 47 (L) 03/08/2021 Results for orders placed during the hospital encounter of 03/05/21 US RENAL AND BLADDER Narrative CLINICAL HISTORY: -jei. COMPARISON: 12/30/2016. TECHNIQUE: US RENAL AND BLADDER on 03/05/2021 11:24 PM. FINDINGS: The kidneys were sonographically normal. The right kidney measured 8.2 x 6.2 x 4.5 cm while the left kidney measured 7.5 x 4.6 x 4.3 cm. There was no shadowing calculus, perinephric fluid collection, or hydronephrosis. The urinary bladder was decompressed by a Garza catheter. Impression : 1. No acute findings or abnormalities to explain the patient's symptoms Note: Radiology results need to be interpreted within a comprehensive clinical context. If you have questions about the radiology report, please contact the office of the ordering clinician. * Herbie Haider MD - 03/09/2021 9:52 AM EDT Images from the original note were not included. PROGRESS NOTE Assessment/Plan: COVID-19 infection -O2 sat stable on room air -Chest x-ray negative -Fevers improving ?? Acute on chronic diarrhea -Likely secondary to COVID-19 infection, unknown cause for chronic diarrhea -May be improving ?? Dehydration -P.o. intake improving ?? Acute on chronic renal failure -Improved/resolved, creatinine now back to baseline ?? Hypotension -Resolved -Status post 3 L IV fluid bolus and brief pressors ?? Fevers -Secondary to COVID-19 infection -UA and chest x-ray negative and normal WBCs and blood cultures negative -improving ?? Hypertension ?? Dyslipidemia ?? Type 2 diabetes mellitus -Well-controlled ?? Mood disorder ?? Migraine headaches ?? Chronic pain syndrome ?? Mild thrombocytopenia -Stable ?? Hypokalemia secondary to diarrhea -Resolved ?? Hypomagnesemia -Resolved Hypophosphatemia -Resolved ?? Plan: Supportive care Accu-Cheks/SSI GI consulted, working up chronic diarrhea, follow-up outpatient Resumed??home beta-mandi, continue to hold home lisinopril/Aldactone Monitor p.o. intake Replaced electrolytes Imodium for diarrhea Continue probiotics Subcu heparin for DVT prophylaxis PT eval pending, needs SNF? Possible discharge today after PT eval, possible SNF placement if needed, and await vitals from this morning. Addendum: O2 sat dropped to 84 to 85% on room air with PT. Is 91% at rest. Will recheck chest x-ray and add remdesivir and steroids and monitor for now. Hold discharge for now. VTE Prophylaxis: Qualifying Pharmacologic Prophylaxis heparin, porcine (PF) injection 5,000 Units 2 times per day Active Hospital Problems Diagnosis ??? *COVID-19 virus infection ??? Metabolic acidosis, NAG, bicarbonate losses ??? Chronic diarrhea ??? Diabetes mellitus (HCC) ??? Hypotension ??? Migraines ??? JIE (acute kidney injury) (HCC) ??? Essential hypertension Subjective: Feels better today. Tolerating p.o. Diarrhea improved. 2 episodes of diarrhea for the last 24 hours. Ambulating. Does feel slightly lightheaded with ambulation. Objective: BP 111/55 (BP Location: Right arm, Patient Position: Semi Fowlers) Pulse 69 Temp 99.3 ??F (37.4??C) (Oral) Resp 16 Ht 5' (1.524 m) Wt 167 lb 5.3 oz (75.9 kg) SpO2 95% BMI 32.68 kg/m?? I/O last 3 completed shifts: In: 1230.6 [P.O.:905; IV Piggyback:325.6] Out: 900 [Urine:900] Weight: 167 lb 5.3 oz (75.9 kg) Constitutional: Alert and oriented to person, place, and time. No distress. Cardiovascular: Normal rate and regular rhythm. Exam reveals no friction rub. No murmur heard. Pulmonary/Chest: Effort normal and breath sounds normal. No respiratory distress. There are no wheezes. Abdominal: Soft. Bowel sounds are normal. No distension. There is no tenderness. There is no rebound and no guarding. Musculoskeletal: No edema. Neurological: Grossly normal. Skin: Skin is warm and dry. No erythema. Labs: Laboratory data and diagnostic testing reviewed 03/09/21. Herbie Haider MD 03/09/2021 9:52 AM * Kenneth Reyes MD - 03/08/2021 3:25 PM EDT Name: Caroline Romero Date: 03/08/2021 : 1960 Age: 60 y.o. We are following patient due to renal failure Nephrology Progress Note Dr. Kenneth Reyes M.D [facility] Progress since last Visit Caroline Romero??is a 60 y.o.??WF admitted with hypotension, weakness and fever and diagnosed with Covid19. Her Scr increased from 1.1-1.3 to peak 3.46 and improved with IVF expansion. Labs show Na 140, K 3.8, Cl 108, CO12 17?? PMHx DM, HTN, CKD. Outpatient meds include tylenol, Albuterol, Lipitor, Wellbutrin, Neurontin, Insulin, Lisinopril, Prilosec, Zanaflex, Lopressor, Aldactone, E and Topamax. ??Plan of Care ?? 1. JIE??on [id number] 1. Improving 2. Scr down to 1.24 after peak at 3.46 3. Metabolic acidosis due to Topamax effect on AC resulting in RTA from bicarbonaturia 2. Hypotension 1. Resolved 3. DM 1. Per primary team 4. Covid19 1. On RA 2. No Dexamethasone or Remdesivir ?? Available labs were discussed with patient and family. Active Hospital Problems Diagnosis ??? *COVID-19 virus infection ??? Metabolic acidosis, NAG, bicarbonate losses ??? Chronic diarrhea ??? Diabetes mellitus (HCC) ??? Hypotension ??? Migraines ??? JIE (acute kidney injury) (HCC) ??? Essential hypertension Objective Physical Exam at 10:22 PM BP 143/47 (BP Location: Left arm, Patient Position: Lying right side) Pulse 68 Temp (!) 102.1 ??F (38.9 ??C) (Oral) Resp 16 Ht 5' (1.524 m) Wt 167 lb 5.3 oz (75.9 kg) SpO2 100% BMI 32.68 kg/m?? Wt Readings from Last 3 Encounters: 03/06/21 167 lb 5.3 oz (75.9 kg) 03/05/21 151 lb (68.5 kg) 03/05/21 151 lb (68.5 kg) Physical exam not done due to COVID 19. D/w nurses and other members of the team LABS Reviewed No results found for this or any previous visit. Lab Results Component Value Date CREATININE 1.19 03/07/2021 BUN 15 03/07/2021 NA 140 03/07/2021 K 3.4 (L) 03/07/2021 CL 107 03/07/2021 CO2 16 (L) 03/07/2021 Lab Results Component Value Date WBC 7.2 03/07/2021 HGB 11.0 (L) 03/07/2021 HCT 31.6 (L) 03/07/2021 MCV 91.1 03/07/2021 PLT 123 (L) 03/07/2021 Lab Results Component Value Date CALCIUM 7.9 (L) 03/07/2021 No results found for: IRON, TIBC, FERRITIN No results found for: [id number] Lab Results Component Value Date GFRAFRAM 57 (L) 03/07/2021 GFRNONAFRAM 50 (L) 03/07/2021 Results for orders placed during the hospital encounter of 03/05/21 US RENAL AND BLADDER Narrative CLINICAL HISTORY: -jie. COMPARISON: 12/30/2016. TECHNIQUE: US RENAL AND BLADDER on 03/05/2021 11:24 PM. FINDINGS: The kidneys were sonographically normal. The right kidney measured 8.2 x 6.2 x 4.5 cm while the left kidney measured 7.5 x 4.6 x 4.3 cm. There was no shadowing calculus, perinephric fluid collection, or hydronephrosis. The urinary bladder was decompressed by a Garza catheter. Impression : 1. No acute findings or abnormalities to explain the patient's symptoms Note: Radiology results need to be interpreted within a comprehensive clinical context. If you have questions about the radiology report, please contact the office of the ordering clinician. * Leanna Morgan RN - 03/08/2021 10:38 AM EDT 03/08/21 1038 Ongoing Discharge Planning Evaluation Discharge Parameters 03/08/21: Pending repeat labs and PT eval * Lynn Treviño, PT - 03/08/2021 9:31 AM EDT 03/08/21 0716 PT Subjective Note Type Chart Review;Evaluation Attempt Patient Room/Unit 3318 Therapy delay reason Unable to arouse/awaken patient Admitting Diagnosis 60 y.o. female with history of asthma, sleep apnea, diabetes, depression and recently diagnosed COVID-19 presents to the ED via wheelchair from the infusion center with hypotension. She was seen in the ED two days ago with concern for COVID-19 with multiple family members positive. She reported chest pain, shortness of breath, cough, nausea, vomiting, and diarrhea. She has notbeen vaccinated. Covid test was positive and chest x-ray was clear. Pt came in with CP and hypotension, COVID, JIE * Herbie Haider MD - 03/08/2021 9:02 AM EDT Images from the original note were not included. PROGRESS NOTE Assessment/Plan: COVID-19 infection -O2 sat stable on room air -Chest x-ray negative -Still with fevers ?? Acute on chronic diarrhea -Likely secondary to COVID-19 infection, unknown cause for chronic diarrhea -May be improving ?? Dehydration -P.o. intake improving ?? Acute on chronic renal failure -Improved/resolved, creatinine now back to baseline ?? Hypotension -Resolved -Status post 3 L IV fluid bolus and brief pressors ?? Fevers -Secondary to COVID-19 infection -UA and chest x-ray negative and normal WBCs and blood cultures negative x2 ?? Hypertension ?? Dyslipidemia ?? Type 2 diabetes mellitus -Well-controlled ?? Mood disorder ?? Migraine headaches ?? Chronic pain syndrome ?? Mild thrombocytopenia -Stable ?? Hypokalemia secondary to diarrhea Hypomagnesemia ?? Plan: Supportive care Accu-Cheks/SSI GI consulted, working up chronic diarrhea, follow-up outpatient Resumed home beta-mandi, continue to hold home lisinopril/Aldactone Monitor p.o. intake Replace potassium and magnesium Imodium for diarrhea Continue probiotics Subcu heparin for DVT prophylaxis A.m. labs PT eval, needs SNF? VTE Prophylaxis: Qualifying Pharmacologic Prophylaxis heparin, porcine (PF) injection 5,000 Units 2 times per day Active Hospital Problems Diagnosis ??? *COVID-19 virus infection ??? Metabolic acidosis, NAG, bicarbonate losses ??? Chronic diarrhea ??? Diabetes mellitus (HCC) ??? Hypotension ??? Migraines ??? JIE (acute kidney injury) (HCC) ??? Essential hypertension Subjective: Still with fevers. States the diarrhea is improving. 5 episodes recorded over last 24 hours. Tolerating some p.o. Ate 100% of dinner last night Objective: BP 107/51 (BP Location: Right leg, Patient Position: Lying left side) Pulse 55 Temp 99.7 ??F (37.6 ??C) (Oral) Resp 16 Ht 5' (1.524 m) Wt 167 lb 5.3 oz (75.9 kg) SpO2 96% BMI 32.68 kg/m?? I/O last 3 completed shifts: In: 720 [P.O.:720] Out: 700 [Urine:700] Weight: 167 lb 5.3 oz (75.9 kg) Constitutional: Alert and oriented to person, place, and time. No distress. Cardiovascular: Normal rate and regular rhythm. Exam reveals no friction rub. No murmur heard. Pulmonary/Chest: Effort normal and breath sounds normal. No respiratory distress. There are no wheezes. Abdominal: Soft. Bowel sounds are normal. No distension. There is no tenderness. There is no rebound and no guarding. Musculoskeletal: No edema. Neurological: Grossly normal. Skin: Skin is warm and dry. No erythema. Labs: Laboratory data and diagnostic testing reviewed 03/08/21. Herbie Haider MD 03/08/2021 9:02 AM * Ericka Roberson RN - 03/08/2021 3:50 AM EDT PT Educated about proning and the positive benefits. Pt refuses to lay that way. Pt states, I cantlay on my belly pt repositioned as far over to left side as she could instead. * Noris Bonilla RN - 03/07/2021 4:08 PM EDT 03/07/21 1559 Discharge Planning Evaluation Completed by CC/SW Yes Referral Source Chart review Assign DC Planning Video Yes Does patient meet high risk triggers? More than 2 ER visits in 30 days What brought the patient to the Hospital? Covid 19 Who you interviewed Other (Comment) (phone interview d/t precautions) Mental Status Alert and oriented Decision Maker Patient Who does pt identify as their caregiver/support person who will be their active partner in the dc planning process Pt identified caregiver/support person for dc planning process Caregiver Name Antonio Romero Spouse Caregiver Does patient need marketing operations consultant? No Activities of Daily Living Prior to Admission Independent with ADLS;Independent with Homemaking;Independent with mobility DME at Home None Patient's Living Arrangments Prior to Admission? Private Residence With Other(s) Private Residence With Other(s) Spouse/Significant Other;Children Support Systems Spouse/Significant Other;Children Quality of Support System Adequate How hard is it for you to pay for the basics like food, housing, medical care & heating? Not hard at all Within the past 12 months, have you worried that your food would run out before you got money to buy more? Never true Within the past 12 months, the food you bought just didn't last and you didn't have money to get more? Never true Within the past 12 months, has lack of transportation kept you from medical appointments or from getting medications? No Within the past 12 months, has lack of transportation kept you from meetings, work or getting things needed for daily living? No Follow Up Assigned To: Referral not needed concern identified and addressed by Other Sports Official Anticipated post-acute care needs Home with OP Follow Up Discussed discharge plans with Patient/Family/Caregiver/Support Person Yes, Discussed with patient Discussed discharge plans with Care Team at [facility] Yes, with nurse in attendance;Yes, with doctor in attendance Patient's goals for recovery [place] in self-care Agency/Facility Options Offered, list provided N/A - No post acute needs identified at this time Provided information, demonstrated how to access quality and resource utilization data for post acute provider and offered assistance: N/A [facility] Financial Discloure completed? N/A Actual Discharge Plan 03/07: CC INITIAL: spoke with pt via phone, chart reviewed. 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 PCP Dr. Garcia. Uses [facility] in [place] with affordability. No HH or DME. Family can transport at [place]. Pt COVID +, tolerating RA. Neph and GI on case. CC will cont to follow. * Herbie Haider MD - 03/07/2021 2:54 PM EDT Images from the original note were not included. PROGRESS NOTE Assessment/Plan: COVID-19 infection -O2 sat stable on room air -Chest x-ray negative ?? Acute on chronic diarrhea -Likely secondary to COVID-19 infection, unknown cause for chronic diarrhea ?? Dehydration ?? Acute on chronic renal failure -Improved/resolved, creatinine now back to baseline ?? Hypotension -Resolved -Status post 3 L IV fluid bolus and brief pressors ?? Fevers -Secondary COVID-19 infection -UA and chest x-ray negative ?? Hypertension ?? Dyslipidemia ?? Type 2 diabetes mellitus ?? Mood disorder ?? Migraine headaches ?? Chronic pain syndrome ?? Mild thrombocytopenia -Stable Hypokalemia secondary to diarrhea ?? Plan: IV fluids Supportive care Accu-Cheks/SSI GI consulted, working up chronic diarrhea, follow-up outpatient Resumed home beta-mandi, continue to hold home lisinopril/Aldactone Subcu heparin for DVT prophylaxis Replace potassium and check mag level A.m. labs PT eval VTE Prophylaxis: Qualifying Pharmacologic Prophylaxis heparin, porcine (PF) injection 5,000 Units 2 times per day Active Hospital Problems Diagnosis ??? *COVID-19 virus infection ??? Metabolic acidosis, NAG, bicarbonate losses ??? Chronic diarrhea ??? Diabetes mellitus (HCC) ??? Hypotension ??? Migraines ??? JIE (acute kidney injury) (HCC) ??? Essential hypertension Subjective: Complaining not feeling well. Poor appetite. Still with diarrhea. 2 stools recorded yesterday and 2more were recorded today. Objective: BP 115/50 (BP Location: Left arm) Pulse 54 Temp 98.6 ??F (37 ??C) (Oral) Resp 16 Ht 5' (1.524 m) Wt 167 lb 5.3 oz (75.9 kg) SpO2 99% BMI 32.68 kg/m?? I/O last 3 completed shifts: In: 2347.8 [P.O.:245; I.V.:2102.8] Out: 1850 [Urine:1750; Stool:100] Weight: 167 lb 5.3 oz (75.9 kg) Constitutional: Alert and oriented to person, place, and time. No distress. Cardiovascular: Normal rate and regular rhythm. Exam reveals no friction rub. No murmur heard. Pulmonary/Chest: Effort normal and breath sounds normal. No respiratory distress. There are no wheezes. Abdominal: Soft. Bowel sounds are normal. No distension. There is no tenderness. There is no rebound and no guarding. Musculoskeletal: No edema. Neurological: Grossly normal. Skin: Skin is warm and dry. No erythema. Labs: Laboratory data and diagnostic testing reviewed 03/07/21. Herbie Haider MD 03/07/2021 2:54 PM * Kenneth Reyes MD - 03/07/2021 12:00 PM EDT Name: Caroline Romero Date: 03/07/2021 : 1960 Age: 60 y.o. We are following patient due to renal failure Nephrology Progress Note Dr. Kenneth Reyes M.D [facility] Progress since last Visit Caroline Romero??is a 60 y.o. WF admitted on isolation due to Covid19, h/o DM, HTN, CKD. She was admitted due to hypotension (60/30), general weakness and fever. Outpatient meds include tylenol, Albuterol, Lipitor, Wellbutrin, Neurontin, Insulin, Lisinopril, Prilosec, Zanaflex, Lopressor, Aldactone, E and Topamax. She was started on IVF ?? Labs show Na 140, K 3.7, Cl 111, CO12 15, Scr 1.41 and BUN 21 ?? Plan of Care ?? 1. JIE on [id number], improving 1. Baseline Scr 1.4-1.6. JIE due to prerenal azotemia from hypotension with Sr peak at 3.46 2. Metabolic acidosis due to Topamax effect on AC resulting in RTA from bicarbonaturia 3. Will check THERESE, renal indices 4. Met acidosis: hold Topamax. It may take 4-6 days for effect to wean off 2. Hypotension 1. Resolved 3. DM 1. Per primary team 4. Covid19 1. On RA 2. No Dexamethasone or Remdesivir ?? Available labs were discussed with patient and family. Active Hospital Problems Diagnosis ??? *COVID-19 virus infection ??? Metabolic acidosis, NAG, bicarbonate losses ??? Chronic diarrhea ??? Diabetes mellitus (HCC) ??? Hypotension ??? Migraines ??? JIE (acute kidney injury) (HCC) ??? Essential hypertension Objective Physical Exam at 10:23 PM BP 166/54 (BP Location: Left arm, Patient Position: Semi Fowlers) Pulse 68 Temp 98.6 ??F (37 ??C) (Oral) Resp 18 Ht 5' (1.524 m) Wt 167 lb 5.3 oz (75.9 kg) SpO2 100% BMI 32.68 kg/m?? Wt Readings from Last 3 Encounters: 03/06/21 167 lb 5.3 oz (75.9 kg) 03/05/21 151 lb (68.5 kg) 03/05/21 151 lb (68.5 kg) Physical exam not done due to COVID 19. D/w nurses and other members of the team LABS Reviewed with patient. Questions and concerns addressed. No results found for this or any previous visit. Lab Results Component Value Date CREATININE 1.41 (H) 03/06/2021 BUN 21 03/06/2021 NA 140 03/06/2021 K 3.7 03/06/2021 CL 111 (H) 03/06/2021 CO2 15 (L) 03/06/2021 Lab Results Component Value Date WBC 7.3 03/06/2021 HGB 11.2 03/06/2021 HCT 32.0 (L) 03/06/2021 MCV 92.8 03/06/2021 PLT 122 (L) 03/06/2021 Lab Results Component Value Date CALCIUM 7.7 (L) 03/06/2021 No results found for: IRON, TIBC, FERRITIN No results found for: [id number] Lab Results Component Value Date GFRAFRAM 47 (L) 03/06/2021 GFRNONAFRAM 41 (L) 03/06/2021 Results for orders placed during the hospital encounter of 03/05/21 US RENAL AND BLADDER Narrative CLINICAL HISTORY: -jie. COMPARISON: 12/30/2016. TECHNIQUE: US RENAL AND BLADDER on 03/05/2021 11:24 PM. FINDINGS: The kidneys were sonographically normal. The right kidney measured 8.2 x 6.2 x 4.5 cm while the left kidney measured 7.5 x 4.6 x 4.3 cm. There was no shadowing calculus, perinephric fluid collection, or hydronephrosis. The urinary bladder was decompressed by a Garza catheter. Impression : 1. No acute findings or abnormalities to explain the patient's symptoms Note: Radiology results need to be interpreted within a comprehensive clinical context. If you have questions about the radiology report, please contact the office of the ordering clinician. * Les Louie MD - 03/07/2021 11:32 AM EDT SEP GI Progress Note HPI: Caroline Romero is a(n)60 y.o. female admitted for work-up and treatment for COVID-19 [U07.1]. We are following for chronic diarrhea. Chart review: Patient out of ICU. 4 loose stools since yesterday. Objective: Current Facility-Administered Medications: ??? 0.9 % NaCl infusion, , Intravenous, Continuous PRN, Leonardo Zepeda MD (Ronny) ??? acetaminophen (TYLENOL) tablet 650 mg, 650 mg, Oral, Q4H PRN, Leonardo Zepeda MD (Ronny), 650 mg at 03/07/21 0948 ??? albuterol (PROVENTIL HFA;VENTOLIN HFA) inhaler 2 Puff, 2 Puff, Inhalation, Q6H PRN, Leonardo Zepeda MD (Ronny) ??? atropine injection 0.5 mg, 0.5 mg, Intravenous, PRN, Leonardo Zepeda MD (Ronny) ??? benzonatate (TESSALON) capsule 100 mg, 100 mg, Oral, TID PRN, Leonardo Zepeda MD (Ronny), 100 mg at 03/07/21946 ??? buPROPion (WELLBUTRIN SR) SR tablet 150 mg, 150 mg, Oral, BID, Leonardo Zepeda MD (Ronny), 150 mg at 03/07/21946 ??? dextrose 50 % solution 25 mL, 25 mL, Intravenous, PRN, Leonardo Zepeda MD (Ronny) ??? diazePAM (VALIUM) tablet 5 mg, 5 mg, Oral, Nightly PRN, Leonardo Zepeda MD (Ronny), 5 mg at 03/05/218 ??? gabapentin (NEURONTIN) capsule 100 mg, 100 mg, Oral, TID, Leonardo Zepeda MD (Ronny), 100 mg at 03/07/21946 ??? glucagon (GLUCAGEN) injection 1 mg, 1 mg, Intramuscular, PRN AND sterile water injection 1 mL, 1 mL, Injection, PRN, Leonardo Zepeda MD (Ronny) ??? heparin, porcine (PF) injection 5,000 Units, 5,000 Units, Subcutaneous, 2 times per day, Leonardo Zepeda MD (Ronny), 5,000 Units at 03/07/21945 ??? insulin aspart U-100 (NovoLOG) injection 1-5 Units, 1-5 Units, Subcutaneous, QID WM, Leonardo Zepeda MD (Ronny), 1 Units at 03/07/21945 ??? methylcellulose (CITRUCEL) tablet 500 mg, 500 mg, Oral, BID, Les Louie MD, 500 mg at 03/06/21 1543 ??? metoprolol (LOPRESSOR) tablet 25 mg, 25 mg, Oral, BID, Herbie Haider MD, 25 mg at 09/01/21 0947 ??? miconazole (MICATIN) 2 % powder, , Topical, PRN, Caroilne Quintanilla MD ??? miconazole (MICATIN) 2 % powder, , Topical, 2 times per day, Caroline Quintanilla MD, Given at 03/07/21 0948 ??? morphine injection 1 mg, 1 mg, Intravenous, Q4H PRN, Leonardo Zepeda MD (Ronny), 1 mg at 03/05/212208 ??? pantoprazole (PROTONIX) 40 mg in sodium chloride 10 mL injection, 40 mg, Intravenous, Daily OR pantoprazole (PROTONIX) tablet 40 mg, 40 mg, Oral, Daily, Leonardo Zepeda MD (Ronny), 40mg at 03/07/21 0946 ??? promethazine (PHENERGAN) 12.5 mg in sodium chloride 10 mL injection, 12.5 mg, Intravenous, Q4H PRN, 12.5 mg at 03/07/21 0437 OR promethazine (PHENERGAN) injection 12.5 mg, 12.5 mg, Intramuscular, Q4H PRN, Leonardo Zepeda MD (Ronny) ??? Saccharomyces boulardii (FLORASTOR) capsule 250 mg, 250 mg, Oral, BID, Les Louie MD, 250 mg at 03/06/212031 ??? sodium chloride 0.9% IV line flush 20-50 mL, 20-50 mL, Intravenous, PRN, Leonardo Zepeda MD (Ronny) ??? sodium chloride 0.9% syringe 10 mL, 10 mL, Intravenous, 3 times per day, Leonardo Zepeda MD (Ronny), 10 mL at 03/06/21 1325 ??? sodium chloride 0.9% syringe, , Intravenous, PRN, Leonardo Zepeda MD (Ronny), 10 mL at 03/07/21 0437 I/O last 3 completed shifts: In: 2347.8 [P.O.:245; I.V.:2102.8] Out: 1850 [Urine:1750; Stool:100] BP 145/58 (BP Location: Left arm, Patient Position: Sitting) Pulse 66 Temp 98.5 ??F (36.9 ??C) (Oral) Resp 18 Ht 5' (1.524 m) Wt 167 lb 5.3 oz (75.9 kg) SpO2 98% BMI 32.68 kg/m?? Visual Exam: CONSTITUTIONAL: No apparent distress, and appears stated age ENT/MOUTH: MMM RESPIRATORY: No increased work of breathing. No cough SKIN: Normal skin color, texture, turgor. no jaundice. NEUROLOGIC: Patient is awake, alert, and cooperative Results: Lab Results Component Value Date ALT 23 03/05/2021 AST 43 (H) 03/05/2021 ALKPHOS 71 03/05/2021 PROT 8.0 03/05/2021 Lab Results Component Value Date WBC 7.2 03/07/2021 HGB 11.0 (L) 03/07/2021 HCT 31.6 (L) 03/07/2021 MCV 91.1 03/07/2021 PLT 123 (L) 03/07/2021 BUN/Cr/glu/ALT/AST/amyl/lip: 21/07.19/--/--/--/--/-- (03/07 657) No results found. Impression: 1.Chronic Diarrhea - Elevated fecal WBC, negative shiga - 2 BMs yesterday , 2 so far today -Possible etiologies include IBS-D, IBD, microscopic colitis 2.JIE -improving with fluid resuscitiation -nephrology following 3.Covid positive 03/04 -mgt per hospitalist 4.[place], poor PO intake, onset following COVID diagnosis -PPI daily -no vomiting since admitted Plan 1. Continue current diet as tolerated 2. Continue use of PPI and antiemetics 3. Continue use of probiotics and citrucel 4. Stool cx, Fecal calprotectin in process, will call with results. 5. Recommend OP follow up for chronic diarrhea once recovered from COVID Hardy Dominguez NP Student 03/07/2021 11:32 AM Above history, physical, assessment and plan performed in conjunction with Hardy Dominguez APRN student. The history, physical, assessment and plan were performed by this clinician, Evelia Richardson APRN as well. Evelia Richardson APRN 03/07/2021 12:02 PM I have performed a face to face diagnostic evaluation of this patient. This patient was seen in coordination with CHIEF MECHANICAL ENGINEER. Additional data available since the patient was seen includes Diarrhea improving No abd pain BP 115/50 (BP Location: Left arm) Pulse 54 Temp 98.6 ??F (37 ??C) (Oral) Resp 16 Ht 5' (1.524 m) Wt 167 lb 5.3 oz (75.9 kg) SpO2 99% BMI 32.68 kg/m?? Gen; not acutely ill looking Chest; GAE CVS; RRR Abd: soft Plan 1. Chronic diarrhea Stool studies negative, so far --cont probiotics and citrucel -- Continue diet as tolerated -- Imodium prn F/u in GI office, at discharge for further mgt of chronic diarrhea?? 2. Acute kidney injury. Related to COVID infection. Resolved 3. COVID positive 03/04 -- mgt per hospitalist?? Will follow peripherally, pls call with further questions Electronically signed by: Les Louie MD, 03/07/2021 5:23 PM SEP Gastroenterology * Veronika Peterson RN - 03/06/2021 6:24 PM EDT Admitted to [facility] from MICU per stretcher with ongoing IVF of NSS at 100 ml/hr. Afebrile,alert and oriented. Routine admission done.Call light/belongings within reach and bed alarm on for safety. Willcontinue to monitor. * Herbie Haider MD - 03/06/2021 5:07 PM EDT Images from the original note were not included. PROGRESS NOTE Assessment/Plan: COVID-19 infection -O2 sat stable on room air -Chest x-ray negative Acute on chronic diarrhea -Likely secondary to COVID-19 infection, unknown cause for chronic diarrhea Dehydration Acute on chronic renal failure -Improved, creatinine now back to baseline Hypotension -Resolved -Status post 3 L IV fluid bolus and brief pressors Fevers -Secondary COVID-19 infection -UA and chest x-ray negative Hypertension Dyslipidemia Type 2 diabetes mellitus Mood disorder Migraine headaches Chronic pain syndrome Mild thrombocytopenia Plan: IV fluids Supportive care Accu-Cheks/SSI GI consulted, working up chronic diarrhea Resume home beta-mandi, continue to hold home lisinopril/Aldactone Subcu heparin for DVT prophylaxis A.m. labs VTE Prophylaxis: Qualifying Pharmacologic Prophylaxis heparin, porcine (PF) injection 5,000 Units 2 times per day Active Hospital Problems Diagnosis ??? *COVID-19 virus infection ??? Metabolic acidosis, NAG, bicarbonate losses ??? Chronic diarrhea ??? Diabetes mellitus (HCC) ??? Hypotension ??? Migraines ??? JIE (acute kidney injury) (HCC) ??? Essential hypertension Subjective: Some cough and shortness of breath. 7 episodes of diarrhea today. Nausea. Objective: BP 144/88 (BP Location: Left arm, Patient Position: Semi Fowlers) Pulse 84 Temp (!) 101.6 ??F (38.7 ??C) (Axillary) Resp (!) 21 Ht 5' (1.524 m) Wt 151 lb (68.5 kg) SpO2 97% BMI 29.49 kg/m?? I/O last 3 completed shifts: In: 1551.4 [P.O.:120; I.V.:1431.4] Out: 3400 [Urine:3400] Weight: 151 lb (68.5 kg) Constitutional: Alert and oriented to person, place, and time. No distress. Cardiovascular: Normal rate and regular rhythm. Exam reveals no friction rub. No murmur heard. Pulmonary/Chest: Effort normal and breath sounds normal. No respiratory distress. There are no wheezes. Abdominal: Soft. Bowel sounds are normal. No distension. There is no tenderness. There is no rebound and no guarding. Musculoskeletal: No edema. Neurological: Grossly normal. Skin: Skin is warm and dry. No erythema. Labs: Laboratory data and diagnostic testing reviewed 03/06/21. Herbie Haider MD 03/06/2021 5:07 PM * Matilde Zimmerman, JOVANNY - 03/06/2021 4:47 PM EDT Report called to nurse Dieudonne. * Kanika Rangel RN - 03/06/2021 11:07 AM EDT Images from the original note were not included. Daily Status Update GI consult Send Stool Transfer today Ventilator Ventilator: No Airway LDAs None Progressive Mobility Patient's Current Mobility Score: 2 RASS Score: 0 PT/OT Orders (From admission, onward) None PT Frequency: (not recorded) Plan: Patient ambulatory (PT not needed) Delirium Assessment CAM Result: Negative Plan: Negative - continue with plan Blood Glucose Recent Labs 03/05/21 1036 03/05/21 1807 03/05/21 2035 03/06/21 0855 03/06/21 0927 GLU -- -- -- -- 155* FSBS 135* 134* 107* 141* -- Insulin Drip: No Basal Insulin Orders: yes Prandial Insulin Orders: yes Correctional Algorithm: Low Plan: Continue current treatment plan - glucose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 4.3 cm. There was no shadowing calculus, perinephric fluidcollection, or hydronephrosis. The urinary bladder was decompressed by a Garza catheter. 1. No acute findings or abnormalities to explain the patient's symptoms Note: Radiology results need to be interpreted within a comprehensive clinical context. If you have questions about the radiology report, please contact the office of the ordering clinician. ASSESSMENT A 60yo CAF with COVID 19 infection referred for evaluation of chronic diarrhea Patient Active Problem List Diagnosis ??? Difficult airway for intubation ??? Unstable angina pectoris (HCC) ??? JIE (acute kidney injury) (HCC) ??? Essential hypertension ??? COVID ??? COVID-19 virus infection ??? COVID-19 ??? Chronic diarrhea ??? Diabetes mellitus (HCC) ??? Hypotension ??? Migraines ??? Metabolic acidosis, NAG, bicarbonate losses Plan 1. Chronic diarrhea Ddx include IBS-diarrhea, IBD, microscopic colitis, enteropathy etc -- Stool studies, including C diff assay -- Initiate probiotics and citrucel -- Continue diet as tolerated Would hesitate to workup diarrhea during her COVID 19 infection, as the lab results could be skewed. Recommend f/u in office for further diarrheal workup, if stool studies are negative. She has managed her chronic diarrhea for several years, and there is no urgency to work this up during her acute illness 2. Acute kidney injury. Related to COVID infection Improving with fluid resuscitation. -- ghada I/O and renal panel 3. COVID positive 03/04 -- mgt per CCM 4. Nausea, poor PO intake, onset after COVID diagnosis Related to acute illness -- analgesia/antiemetics prn -- on protonix 40mg daily Thanks for allowing me to assist with care of this patient I have personally performed a face to face diagnostic evaluation of this patient, including reviewing the chief complaint, HPI, ROS as well as the past medical/social/family history sections for thispatient and performed a physical exam. The labs, radiographic studies and the plan have been reviewed. This patient was seen in coordination with RETURNED CASE INSPECTOR. Electronically signed by: Les Louie MD, 03/06/2021 1:23 PM SE[facility] Gastroenterology * Kenneth Reyes MD - 03/05/2021 10:28 PM EDT Name: Caroline Romero Date: 03/05/2021 : 1960 Age: 60 y.o. Referred by Lupillo Aparicio MD Nephrology Consultation, [facility] Kenneth Reyes M.D. Thanks for calling. Chart reviewed and patient examined. HPI - Clinical Profile Caroline Romero is a 60 y.o. WF admitted on isolation due to Covid19, h/o DM, HTN, CKD. She was admitted due to hypotension (60/30), general weakness and fever. Outpatient meds include tylenol, Albuterol, Lipitor, Wellbutrin, Neurontin, Insulin, Lisinopril, Prilosec, Zanaflex, Lopressor, Aldactone,E and Topamax. She was started on IVF ?? Labs show Na 140, K 3.7, Cl 111, CO12 15, Scr 1.41 and BUN 21 ?? Plan of Care 1. JIE on [id number], improving 1. Baseline Scr 1.4-1.6. JIE due to prerenal azotemia from hypotension with Sr peak at 3.46 2. Metabolic acidosis due to Topamax effect on AC resulting in RTA from bicarbonaturia 3. Will check THERESE, renal indices 4. Rec to hold Topamax 2. DM 1. Per primary team 3. Covid19 1. On RA 2. No Dexamethasone or Remdesivir Available labs were discussed with patient and family. Past 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: Diagnosis Date ??? Asthma ??? Depression ??? Diabetes mellitus (HCC) ??? Encounter for blood transfusion ??? Headache(784.0) ??? Heart murmur ??? Heartburn ??? Syncope and collapse ??? Unspecified sleep apnea no machine Allergies Allergen Reactions ??? Advil [Ibuprofen] Other (See Comments) seizures ??? Sharmaine [Fexofenadine] Other (See Comments) seizures ??? Augmentin [Amoxicillin-Pot Clavulanate] Other (See Comments) seizures ??? Axid [Nizatidine] Other (See Comments) seizures ??? Compazine [Prochlorperazine] Other (See Comments) seizures ??? Darvocet A500 [Propoxyphene N-Acetaminophen] Other (See Comments) seizures ??? Reglan [Metoclopramide] Other (See Comments) seizures ??? Toradol [Ketorolac] Rash ??? Tramadol Rash ??? Zofran Odt [Ondansetron] Other (See Comments) seizures Current Facility-Administered Medications Medication Dose Route Frequency Provider Last Rate Last Admin ??? 0.9 % NaCl infusion Intravenous Continuous PRN Leonardo Zepeda MD (Ronny) ??? 0.9 % NaCl infusion Intravenous Continuous Leonardo Zepeda MD (Ronny) 100 mL/hr at 03/05/212206 New Bag at 03/05/212206 ??? acetaminophen (TYLENOL) tablet 650 mg 650 mg Oral Q4H PRN Leonardo Zepeda MD (Ronny) ??? albuterol (PROVENTIL HFA;VENTOLIN HFA) inhaler 2 Puff 2 Puff Inhalation Q6H PRN Leonardo Zepeda MD (Ronny) ??? atropine injection 0.5 mg 0.5 mg Intravenous PRN Leonardo Zepeda MD (Ronny) ??? benzonatate (TESSALON) capsule 100 mg 100 mg Oral TID PRN Leonardo Zepeda MD (Ronny) 100 mg at 03/05/212207 ??? buPROPion (WELLBUTRIN SR) SR tablet 150 mg 150 mg Oral BID Leonardo Zepeda MD (Ronny) ??? dextrose 50 % solution 25 mL 25 mL Intravenous PRN Leonardo Zepeda MD (Ronny) ??? diazePAM (VALIUM) tablet 5 mg 5 mg Oral Nightly PRN Leonardo Zepeda MD (Ronny) 5 mg at 03/05/212207 ??? gabapentin (NEURONTIN) capsule 100 mg 100 mg Oral TID Leonardo Zepeda MD (Ronny) ??? glucagon (GLUCAGEN) injection 1 mg 1 mg Intramuscular PRN Leonardo Zepeda MD (Ronny) And ??? sterile water injection 1 mL 1 mL Injection PRN Leonardo Zepeda MD (Ronny) ??? [START ON 03/06/2021] heparin, porcine (PF) injection 5,000 Units 5,000 Units Subcutaneous 2 times per day Leonardo Zepeda MD (Ronny) ??? insulin aspart U-100 (NovoLOG) injection 1-5 Units 1-5 Units Subcutaneous QID Leonardo Zepeda MD (Ronny) ??? insulin aspart U-100 (NovoLOG) injection 3 Units 0.05 Units/kg Subcutaneous TID Leonardo Zepeda MD (Ronny) ??? insulin glargine U-100 (LANTUS) injection 20 Units 20 Units Subcutaneous Nightly Leonardo Zepeda MD (Ronny) ??? morphine injection 1 mg 1 mg Intravenous Q4H PRN Leonardo Zepeda MD (Ronny) 1 mg at 03/05/212208 ??? [START ON 03/06/2021] pantoprazole (PROTONIX) 40 mg in sodium chloride 10 mL injection 40 mg Intravenous Daily Leonardo Zepeda MD (Ronny) Or ??? [START ON 03/06/2021] pantoprazole (PROTONIX) tablet 40 mg 40 mg Oral Daily Leonardo Zepeda MD (Ronny) ??? promethazine (PHENERGAN) 12.5 mg in sodium chloride 10 mL injection 12.5 mg Intravenous Q4H PRNDLeonardo conner MD (Ronny) Or ??? promethazine (PHENERGAN) injection 12.5 mg 12.5 mg Intramuscular Q4H PRN Leonardo Zepeda MD (Ronny) ??? sodium chloride 0.9% IV line flush 20-50 mL 20-50 mL Intravenous PRN Leonardo Zepeda MD (Ronny) ??? sodium chloride 0.9% syringe 10 mL 10 mL Intravenous 3 times per day Leonardo Zepeda MD (Ronny) 10 mL at 03/05/212208 ??? sodium chloride 0.9% syringe Intravenous PRN Leonardo Zepeda MD (Ronny) ??? topiramate (TOPAMAX) tablet 50 mg 50 mg Oral BID Leonardo Zepeda MD (Ronny) Consultants Patient Care Team: Lupillo Garcia MD as PCP - General (Family Medicine) Social History Socioeconomic History ??? Marital status: Spouse name: Not on file ??? Number of children: Not on file ??? Years of education: Not on file ??? Highest education level: Not on file Occupational History ??? Not on file Tobacco Use ??? Smoking status: Never Smoker ??? Smokeless tobacco: Never Used Substance and Sexual Activity ??? Alcohol use: No ??? Drug use: No ??? Sexual activity: Not on file Other Topics Concern ??? Not on file Social History Narrative ??? Not on file Social Determinants of Health Financial Resource Strain: ??? Difficulty of Paying Living Expenses: Food Insecurity: ??? Worried About Running Out of Food in the Last Year: ??? Ran Out of Food in the Last Year: Transportation Needs: ??? Lack of Transportation (Medical): ??? Lack of Transportation (Non-Medical): Physical Activity: ??? Days of Exercise per Week: ??? Minutes of Exercise per Session: Stress: ??? Feeling of Stress : Social Connections: ??? Frequency of Communication with Friends and Family: ??? Frequency of Social Gatherings with Friends and Family: ??? Attends Bahai Services: ??? Active Member of Clubs or Organizations: ??? Attends Club or Organization Meetings: ??? Marital Status: Intimate Partner Violence: ??? Fear of Current or Ex-Partner: ??? Emotionally Abused: ??? Physically Abused: ??? Sexually Abused: Family History: family history is not on file.. Physical Exam at 10:28 PM BP 137/60 Pulse 69 Temp 97.7 ??F (36.5 ??C) (Oral) Resp (!) 23 Ht 5' (1.524 m) Wt 151 lb (68.5 kg) SpO2 95% BMI 29.49 kg/m?? Wt Readings from Last 3 Encounters: 03/05/21 151 lb (68.5 kg) 03/05/21 151 lb (68.5 kg) 03/05/21 151 lb (68.5 kg) Physical exam not done due to COVID 19. D/w nurses and other members of the team LABS Reviewed No results found for this or any previous visit. Lab Results Component Value Date CREATININE 3.46 (H) 03/05/2021 BUN 49 (H) 03/05/2021 NA 136 03/05/2021 K 4.0 03/05/2021 CL 100 03/05/2021 CO2 16 (L) 03/05/2021 Lab Results Component Value Date WBC 10.1 03/05/2021 HGB 12.0 03/05/2021 HCT 36.5 03/05/2021 MCV 96.3 03/05/2021 PLT 158 03/05/2021 Lab Results Component Value Date CALCIUM 9.2 03/05/2021 No results found for: IRON, TIBC, FERRITIN No results found for: [id number] Lab Results Component Value Date GFRAFRAM 16 (L) 03/05/2021 GFRNONAFRAM 14 (L) 03/05/2021 Results for orders placed during the hospital encounter of 12/29/16 US RENAL AND BLADDER Narrative US RENAL AND BLADDER HISTORY: -Elevated creatinine 1.5. History of hypertension and diabetes EXAM DATE:12/30/2016 10:07 AM Findings: The right kidney is 9.9 x 4.0 x 5.7 cm. The left kidney is 9.0 x 3.9 x 3.6 cm. Kidneys have normal cortical thickness and echogenicity. No masses or hydronephrosis present. Bladder is nondistended Impression : Normal renal ultrasound. documented in this encounter Miscellaneous Notes * Plan of Care - Catina Hernandez RN - 03/14/2021 10:19 AM EDT Pt A&O x 4 VSS. Sats >90% on room air Pt denies pain this shift. Skin assessed, no new skin issues noted. Pt turning self independently in the bed. PIV CDI. Removed with dc order Patient ambulating with assist x1 Call light in reach. Non-slip socks and gait belt in use when ambulating. Will continue to monitor. Discharge education reviewed. No additional questions. Problem: Isolation Precautions Goal: Prevent transmission of multi-drug organisms within the hospital Outcome: Adequate for Discharge Problem: Safety: Fall Risk Goal: Patient will remain free of falls and injury Outcome: Adequate for Discharge Problem: Pain Management Goal: The patient's stated pain goal will be reached and maintained. Description: The patient's stated pain goal will be reached and maintained Outcome: Adequate for Discharge * Plan of Care - Adriana Trejo RN - 03/14/2021 4:27 AM EDT VSS, afebrile. PRN given for nausea, O2 sat stable on room air. Bed locked and low, call light within reach, room free of clutter. Isolation precautions being maintained. Pt encouraged to verbalize questions, needs, and concerns. Problem: Isolation Precautions Goal: Prevent transmission of multi-drug organisms within the hospital Outcome: Progressing Problem: Individualized Patient Preference/Goals - (ALWAYS ADD TO CARE PLANS) Description: (always add to care plan) Goal: Tell me about yourself (i.e. hobbies, interests, pets, etc) Outcome: Progressing Goal: Care Team Goal Description: Document what the Care Team goal is to help the patient meet their What's Most Important For You Today? DAILY goal This goal needs to be ANSWER DAILY - DO NOT COMPLETE Outcome: Progressing Problem: Safety: Fall Risk Goal: Patient will remain free of falls and injury Outcome: Progressing Problem: Knowledge Deficit Related to Disease Process/Treatment Description: Goal: Patient/family will be knowledgeable of disease process and treatment Outcome: Progressing Problem: Assess for New Problems - (ALWAYS ADD TO CARE PLAN) Description: Assess patient for any new problem(s) to add to Care Plan. If no new problem(s) are identified, choose no new problem(s) added . If new problem(s) are identified, choose new problem added and document a note regarding the new problem(s). Add the template for the new problem(s) to the Care Plan. Goal: Patient's care plan will be individualized with added problems when problem is identified Description: Below is a list of the more common patient problems. The list is not all inclusive. When an additional problem is identified add to the Care Plan. To see entire list of additional problem options, search ADDITIONAL PROBLEMS [51] or search for individual problems such as RESTRAINTS [62]. To add an Additional Problem, go to APPLY TEMPLATE. Common problems: Altered bladder elimination [77] Altered bowel elimination [78] Altered mental status [80] Altered mobility [79] Altered skin integrity [86] Cirilo scale <18 (prevention) [76] Diabetes newly diagnosed/uncontrolled or A1C >6 [75] Infection [93] Isolation [69] Nutrition imbalance [91] Restraints [94] Outcome: Progressing * Plan of Care - Tamar Coley RN - 03/13/2021 7:32 PM EDT Problem: Isolation Precautions Goal: Prevent transmission of multi-drug organisms within the hospital Outcome: Progressing Note: Patient in covid precautions. Patient understand the precautions. Proper PPE used. Problem: Safety: Fall Risk Goal: Patient will remain free of falls and injury Outcome: Progressing Note: Pt has non skid socks on, bed rails up x2, bed alarm on, and call light within reach. Pt is encouraged to use the call light if they need anything. Problem: Pain Management Goal: The patient's stated pain goal will be reached and maintained. Description: The patient's stated pain goal will be reached and maintained Outcome: Progressing Note: Pain is being controlled by current regimen as reported by patient. Problem: Knowledge Deficit Related to Disease Process/Treatment Description: Goal: Patient/family will be knowledgeable of disease process and treatment Outcome: Progressing Note: Patient asking appropriate questions regarding care to further knowledge. Problem: Psycho/Social/Spiritual Goal: Patient will identify sources of support and strength Outcome: Progressing * Utilization Review Notes - Tiffanie Garcia RN - 03/13/2021 8:24 AM EDT INPATIENT ORDER ON CHART CONTINUES STAY ON MONITORED MED/SURG Per MD note 03/12: COVID-19 infection -Chest x-ray negative -Fevers??now resolved -Some hypoxemia now resolved -CRP improving -On p.o. Decadron, status post remdesivir x1 ?? Acute on chronic diarrhea -Likely secondary to COVID-19 infection, unknown cause for chronic diarrhea -Now resolved ?? Dehydration -P.o. intake improving ?? Acute on chronic renal failure -Improved/resolved, creatinine now back to baseline ?? Hypotension -Resolved -Status post 3 L IV fluid bolus and brief pressors ?? Fevers -Secondary??to??COVID-19 infection -UA and chest x-ray negative??and normal WBCs and blood cultures negative -Now resolved ?? Hypoxemia -Secondary to COVID-19 infection -Chest x-ray remains clear -Now??resolved, O2 sat stable on room air Plan: Continue Decadron, complete 10-day course Accu-Cheks/SSI/Lantus GI consulted, working up chronic diarrhea, follow-up outpatient Resumed??home beta-mandi, continue to hold home lisinopril/Aldactone Monitor p.o. intake Replaced??electrolytes Imodium for diarrhea Continue probiotics P.o. Phenergan for nausea Subcu??Lovenox??for DVT prophylaxis PT eval??noted, inpatient rehab facility recommended Discharge to inpatient rehab facility when arranged TEMP 98.1, P 59, BP 100/53, Sp02 92 ON RA K 3.0, GLUCOSE 238, CRP 7.93, D-DIMER 730, DECADRON, LOVENOX CARDIAC MONITORING, ONGOING PT PER CC NOTE PT recommendation of Inpatient Rehab Facility (IRF). Note pt is alert and oriented X4. SW called and spoke to pt via phone and discussed. Pt states interest in IRF at d/c. SW discussed facility options. Pt states interest in [facility]. Referral sent. Awaiting response. Pt requested SW call and update her on above. SW called and spoke to Antonio and updated on above. Antonio states understanding and agreeability to above d/c plan. Antonio states no other d/c needs. Pt states noother needs at this time. SW/CC following * Plan of Care - Adriana Trejo RN - 03/13/2021 2:29 AM EDT VSS, afebrile, O2 stable on room air, PRN given for nausea. Blood glucose continues to run high, message sent, orders received. Bed locked and low, call light within reach, room free of clutter. Isolation precautions being maintained. Pt encouraged to verbalize questions, needs, and concerns. Problem: Isolation Precautions Goal: Prevent transmission of multi-drug organisms within the hospital Outcome: Progressing Problem: Individualized Patient Preference/Goals - (ALWAYS ADD TO CARE PLANS) Description: (always add to care plan) Goal: Care Team Goal Description: Document what the Care Team goal is to help the patient meet their What's Most Important For You Today? DAILY goal This goal needs to be ANSWER DAILY - DO NOT COMPLETE Outcome: Progressing Problem: Safety: Fall Risk Goal: Patient will remain free of falls and injury Outcome: Progressing Problem: Pain Management Goal: The patient's stated pain goal will be reached and maintained. Description: The patient's stated pain goal will be reached and maintained Outcome: Progressing Problem: Knowledge Deficit Related to Disease Process/Treatment Description: Goal: Patient/family will be knowledgeable of disease process and treatment Outcome: Progressing Problem: Assess for New Problems - (ALWAYS ADD TO CARE PLAN) Description: Assess patient for any new problem(s) to add to Care Plan. If no new problem(s) are identified, choose no new problem(s) added . If new problem(s) are identified, choose new problem added and document a note regarding the new problem(s). Add the template for the new problem(s) to the Care Plan. Goal: Patient's care plan will be individualized with added problems when problem is identified Description: Below is a list of the more common patient problems. The list is not all inclusive. When an additional problem is identified add to the Care Plan. To see entire list of additional problem options, search ADDITIONAL PROBLEMS [51] or search for individual problems such as RESTRAINTS [62]. To add an Additional Problem, go to APPLY TEMPLATE. Common problems: Altered bladder elimination [77] Altered bowel elimination [78] Altered mental status [80] Altered mobility [79] Altered skin integrity [86] Cirilo scale <18 (prevention) [76] Diabetes newly diagnosed/uncontrolled or A1C >6 [75] Infection [93] Isolation [69] Nutrition imbalance [91] Restraints [94] Outcome: Progressing * Plan of Care - Soledad Taylor RN - 03/12/2021 4:16 PM EDT Problem: Safety: Fall Risk Goal: Patient will remain free of falls and injury Outcome: Progressing. Bed in lowest position; call light and tray table in reach,side rails up x2, non-skid foot wear applied, and floor free of obstacles. Will continue to monitor. Problem: Pain Management Goal: The patient's stated pain goal will be reached and maintained. Description: The patient's stated pain goal will be reached and maintained Outcome: Progressing. Patient denied pain during assessment. Will continue to assess pain. Problem: Knowledge Deficit Related to Disease Process/Treatment Description: Goal: Patient/family will be knowledgeable of disease process and treatment Outcome: Progressing. Patient updated on plan of care. * Plan of Care - Kim Elliott RN - 03/12/2021 10:23 AM EDT Problem: Psycho/Social/Spiritual Goal: Patient will identify sources of support and strength Outcome: Progressing Patient alert but drowsy this morning. Patient declining breakfast meal, denies nausea, states just tired . Encouraged patient repositioning prone, right and left. Patient resting, denies any other needs at this time. Will monitor. * Plan of Care - Adriana Trejo RN - 03/12/2021 1:26 AM EDT VSS, afebrile, no c/o pain, PRN given for nausea. Pt encouraged to turn Q2h, moisture barrier applied. Bed locked and low, slip proof socks in place, room free of clutter, call light within reach. Isolation precautions being maintained. Pt encouraged to verbalize questions, needs, and concerns. Problem: Isolation Precautions Goal: Prevent transmission of multi-drug organisms within the hospital Outcome: Progressing Problem: Individualized Patient Preference/Goals - (ALWAYS ADD TO CARE PLANS) Description: (always add to care plan) Goal: Tell me about yourself (i.e. hobbies, interests, pets, etc) Outcome: Progressing Goal: Care Team Goal Description: Document what the Care Team goal is to help the patient meet their What's Most Important For You Today? DAILY goal This goal needs to be ANSWER DAILY - DO NOT COMPLETE Outcome: Progressing Problem: Safety: Fall Risk Goal: Patient will remain free of falls and injury Outcome: Progressing Problem: Pain Management Goal: The patient's stated pain goal will be reached and maintained. Description: The patient's stated pain goal will be reached and maintained Outcome: Progressing Problem: Knowledge Deficit Related to Disease Process/Treatment Description: Goal: Patient/family will be knowledgeable of disease process and treatment Outcome: Progressing Problem: Assess for New Problems - (ALWAYS ADD TO CARE PLAN) Description: Assess patient for any new problem(s) to add to Care Plan. If no new problem(s) are identified, choose no new problem(s) added . If new problem(s) are identified, choose new problem added and document a note regarding the new problem(s). Add the template for the new problem(s) to the Care Plan. Goal: Patient's care plan will be individualized with added problems when problem is identified Description: Below is a list of the more common patient problems. The list is not all inclusive. When an additional problem is identified add to the Care Plan. To see entire list of additional problem options, search ADDITIONAL PROBLEMS [51] or search for individual problems such as RESTRAINTS [62]. To add an Additional Problem, go to APPLY TEMPLATE. Common problems: Altered bladder elimination [77] Altered bowel elimination [78] Altered mental status [80] Altered mobility [79] Altered skin integrity [86] Cirilo scale <18 (prevention) [76] Diabetes newly diagnosed/uncontrolled or A1C >6 [75] Infection [93] Isolation [69] Nutrition imbalance [91] Restraints [94] Outcome: Progressing * Plan of Care - Serena Hernandez RN - 03/11/2021 1:20 AM EDT Problem: Isolation Precautions Goal: Prevent transmission of multi-drug organisms within the hospital Outcome: Progressing Note: Appropriate PPE worn within patient's room to prevent the spread of hospital acquired infections. Problem: Safety: Fall Risk Goal: Patient will remain free of falls and injury Outcome: Progressing Note: Bed alarm on, non-skid socks applied to feet. Bedside table and call light within reach of patient. Problem: Pain Management Goal: The patient's stated pain goal will be reached and maintained. Description: The patient's stated pain goal will be reached and maintained Outcome: Progressing Note: No pain noted or reported by patient this shift. * Plan of Care - Leslie Morales RN - 03/10/2021 1:14 AM EDT Problem: Isolation Precautions Goal: Prevent transmission of multi-drug organisms within the hospital Outcome: Progressing Patient educated on transmission precautions, PPE station set up outside patient room, isolation order in place Problem: Safety: Fall Risk Goal: Patient will remain free of falls and injury Outcome: Progressing Patient bed in lowest position, call light within reach, nonskid socks in place * Utilization Review Notes - Marni Khan RN - 03/09/2021 2:06 PM EDT INPT ORDER ON CHART. ON MEDS[facility]G FLOOR. CONT STAY REVIEW FOR COVID-19 INFECTION, ACUTE ON CHRONIC DIARRHEA. MASTER OCEAN TO FOLLOW FOR D/C PLANNING. * Plan of Care - Fanny Narayan RN - 03/09/2021 11:23 AM EDT Problem: Isolation Precautions Goal: Prevent transmission of multi-drug organisms within the hospital Outcome: Progressing Note: Pt remains in isolation. Stocked cart outside of room. Signs posted, pt educated. Problem: Individualized Patient Preference/Goals - (ALWAYS ADD TO CARE PLANS) Description: (always add to care plan) Goal: What is most important for you today? ANSWER DAILY Description: This goal needs to be ANSWER DAILY - DO NOT COMPLETE Outcome: Progressing Goal: What are your personal goals for this hospitalization? Description: Ask the patient what their personal goal is for this hospitalization. Example: I want to be able to play with my grandkids, gardening, get back to work, etc Outcome: Progressing Goal: What personal preferences should we be aware of to make your stay more comfortable? Description: Ask the patient for some personal preferences. Examples: I use two pillows to sleep atnight, I take my meds with applesauce, I do not like cheese, I don't want a male nurse Outcome: Progressing Goal: What is your greatest fear or concern around this hospitalization? Description: This question is geared toward patient experience to reduce anxiety. Outcome: Progressing Goal: Tell me about yourself (i.e. hobbies, interests, pets, etc) Outcome: Progressing Goal: Care Team Goal Description: Document what the Care Team goal is to help the patient meet their What's Most Important For You Today? DAILY goal This goal needs to be ANSWER DAILY - DO NOT COMPLETE Outcome: Progressing Problem: Safety: Fall Risk Goal: Patient will remain free of falls and injury Outcome: Progressing Note: Pt remains free of falls. Bed in low and locked position, nonskid footwear in use. BA/CA in use for safety. Bedside table and call light within reach. Frequent visual checks by staff. Problem: Pain Management Goal: The patient's stated pain goal will be reached and maintained. Description: The patient's stated pain goal will be reached and maintained Outcome: Progressing Note: Pt with no c/o pain or discomfort this shift. * Plan of Care - Ericka Roberson RN - 03/08/2021 9:25 PM EDT Problem: Isolation Precautions Goal: Prevent transmission of multi-drug organisms within the hospital Outcome: Progressing Isolation precautions followed Problem: Safety: Fall Risk Goal: Patient will remain free of falls and injury Outcome: Progressing Pt free of falls at this time, bed locked and in low position. Call light within reach bed alarm onfor pt safety. Problem: Pain Management Goal: The patient's stated pain goal will be reached and maintained. Description: The patient's stated pain goal will be reached and maintained Outcome: Progressing Pt denies pain at this time. Pt alert and oriented and able to rate pain on pain scale 0-10. Will continue to monitor. Problem: Psycho/Social/Spiritual Goal: Patient will identify sources of support and strength Outcome: Progressing Emotional support provided Problem: Individualized Patient Preference/Goals - (ALWAYS ADD TO CARE PLANS) Description: (always add to care plan) Goal: What is most important for you today? ANSWER DAILY Description: This goal needs to be ANSWER DAILY - DO NOT COMPLETE Outcome: Progressing I wish I would quit coughing * Plan of Care - Avelino Campos RN - 03/08/2021 3:36 PM EDT Pt alert but drowsy during the shift. Pt got up with one person to the bathroom. All med given to pt. Will continue to monitor. Problem: Isolation Precautions Goal: Prevent transmission of multi-drug organisms within the hospital 03/08/2021 1535 by Avelino Campos RN Outcome: Progressing 03/08/2021 1535 by Avelino Campos RN Outcome: Progressing Problem: Individualized Patient Preference/Goals - (ALWAYS ADD TO CARE PLANS) Description: (always add to care plan) Goal: What is most important for you today? ANSWER DAILY Description: This goal needs to be ANSWER DAILY - DO NOT COMPLETE Outcome: Progressing Goal: What are your personal goals for this hospitalization? Description: Ask the patient what their personal goal is for this hospitalization. Example: I want to be able to play with my grandkids, gardening, get back to work, etc Outcome: Progressing Goal: What personal preferences should we be aware of to make your stay more comfortable? Description: Ask the patient for some personal preferences. Examples: I use two pillows to sleep atnight, I take my meds with applesauce, I do not like cheese, I don't want a male nurse Outcome: Progressing Goal: What is your greatest fear or concern around this hospitalization? Description: This question is geared toward patient experience to reduce anxiety. Outcome: Progressing Goal: Tell me about yourself (i.e. hobbies, interests, pets, etc) Outcome: Progressing Goal: Care Team Goal Description: Document what the Care Team goal is to help the patient meet their What's Most Important For You Today? DAILY goal This goal needs to be ANSWER DAILY - DO NOT COMPLETE Outcome: Progressing Problem: Knowledge Deficit Related to Disease Process/Treatment Description: Goal: Patient/family will be knowledgeable of disease process and treatment Outcome: Progressing Problem: Psycho/Social/Spiritual Goal: Patient will identify sources of support and strength Outcome: Progressing Problem: Assess for New Problems - (ALWAYS ADD TO CARE PLAN) Description: Assess patient for any new problem(s) to add to Care Plan. If no new problem(s) are identified, choose no new problem(s) added . If new problem(s) are identified, choose new problem added and document a note regarding the new problem(s). Add the template for the new problem(s) to the Care Plan. Goal: Patient's care plan will be individualized with added problems when problem is identified Description: Below is a list of the more common patient problems. The list is not all inclusive. When an additional problem is identified add to the Care Plan. To see entire list of additional problem options, search ADDITIONAL PROBLEMS [51] or search for individual problems such as RESTRAINTS [62]. To add an Additional Problem, go to APPLY TEMPLATE. Common problems: Altered bladder elimination [77] Altered bowel elimination [78] Altered mental status [80] Altered mobility [79] Altered skin integrity [86] Cirilo scale <18 (prevention) [76] Diabetes newly diagnosed/uncontrolled or A1C >6 [75] Infection [93] Isolation [69] Nutrition imbalance [91] Restraints [94] Outcome: Progressing * Plan of Care - Vianney Irizarry RN - 03/06/2021 9:08 PM EDT Problem: Safety: Fall Risk Goal: Patient will remain free of falls and injury Outcome: Progressing Note: Call light in reach, bed alarm on * Utilization Review Notes - Ernestine Meza RN - 03/06/2021 8:32 AM EDT UM Admission Review Inpt order on chart Pt admitted from ER to Intensive Care Medical Unit Pt with history of asthma, sleep apnea, diabetes, depression and recently diagnosed COVID-19 presents to the ED via wheelchair from the infusion center with hypotension. She was seen in the ED two days ago with concern for COVID-19 with multiple family members positive. She reported chest pain, shortness of breath, cough, nausea, vomiting, and diarrhea. She has not been vaccinated. Covid test waspositive and chest x-ray was clear. CBC and BMP unremarkable. No hypoxia. She was referred for monoclonal antibody treatment. Blood pressure (!) 60/48, pulse 58, temperature 98.4 ??F (36.9 ??C), resp. rate 12, SpO2 100 %, pCO2 Venous 37 (L) pO2 Venous <42 (H) Base Excess Tarik -9.6 Hco3 Venous 16.7 (L) CO2 Total Tarik 16 (L) O2 Sat. Venous 66.5 creatinine 3.46 with BUN of 49 New central line placed IVF NS Bolus 3 L of NS, continuous 100 hr ISS documented in this encounter Plan of Treatment Not on file documented as of this encounter Procedures Procedure Name Priority Date/Time Associated Diagnosis Comments SCANNED LABS 03/20/2021 11:16 AM EDT GLUCOSE METER POC Routine 03/14/2021 10:00 AM EDT ECG AND WAVEFORMS - TELEMETRY Routine 03/14/2021 7:06 AM EDT D-DIMER Timed 03/14/2021 5:51 AM EDT C-REACTIVE PROTEIN Timed 03/14/2021 5:51 AM EDT GLUCOSE METER POC Routine 03/13/2021 10:48 PM EDT GLUCOSE METER POC Routine 03/13/2021 7:52 PM EDT ECG AND WAVEFORMS - TELEMETRY Routine 03/13/2021 7:00 PM EDT GLUCOSE METER POC Routine 03/13/2021 4:34 PM EDT GLUCOSE METER POC Routine 03/13/2021 12:10 PM EDT ECG AND WAVEFORMS - TELEMETRY Routine 03/13/2021 7:00 AM EDT COMPREHENSIVE METABOLIC PANEL Timed 03/13/2021 6:59 AM EDT GLUCOSE METER POC Routine 03/12/2021 9:55 PM EDT ECG AND WAVEFORMS - TELEMETRY Routine 03/12/2021 7:00 PM EDT GLUCOSE METER POC Routine 03/12/2021 6:42 PM EDT GLUCOSE METER POC Routine 03/12/2021 1:09 PM EDT GLUCOSE METER POC Routine 03/12/2021 9:41 AM EDT ECG AND WAVEFORMS - TELEMETRY Routine 03/12/2021 7:00 AM EDT D-DIMER Timed 03/12/2021 4:31 AM EDT C-REACTIVE PROTEIN Timed 03/12/2021 4:31 AM EDT PHOSPHORUS LEVEL Timed 03/12/2021 4:31 AM EDT MAGNESIUM LEVEL Timed 03/12/2021 4:31 AM EDT COMPREHENSIVE METABOLIC PANEL Timed 03/12/2021 4:31 AM EDT GLUCOSE METER POC Routine 03/11/2021 9:48 PM EDT ECG AND WAVEFORMS - TELEMETRY Routine 03/11/2021 7:00 PM EDT GLUCOSE METER POC Routine 03/11/2021 5:33 PM EDT GLUCOSE METER POC Routine 03/11/2021 12:58 PM EDT GLUCOSE METER POC Routine 03/11/2021 9:18 AM EDT ECG AND WAVEFORMS - TELEMETRY Routine 03/11/2021 7:47 AM EDT COMPREHENSIVE METABOLIC PANEL Timed 03/11/2021 6:14 AM EDT GLUCOSE METER POC Routine 03/10/2021 8:58 PM EDT ECG AND WAVEFORMS - TELEMETRY Routine 03/10/2021 7:00 PM EDT GLUCOSE METER POC Routine 03/10/2021 5:40 PM EDT FECAL CALPROTECTIN Routine 03/10/2021 4:15 PM EDT GLUCOSE METER POC Routine 03/10/2021 1:34 PM EDT IP CONSULT TO CARE COORDINATION Routine 03/10/2021 10:29 AM EDT GLUCOSE METER POC Routine 03/10/2021 9:41 AM EDT D-DIMER Timed 03/10/2021 7:41 AM EDT C-REACTIVE PROTEIN Timed 03/10/2021 7:41 AM EDT COMPREHENSIVE METABOLIC PANEL Timed 03/10/2021 7:41 AM EDT ECG AND WAVEFORMS - TELEMETRY Routine 03/10/2021 7:00 AM EDT GLUCOSE METER POC Routine 03/09/2021 9:30 PM EDT ECG AND WAVEFORMS - TELEMETRY Routine 03/09/2021 7:00 PM EDT GLUCOSE METER POC Routine 03/09/2021 4:41 PM EDT GLUCOSE METER POC Routine 03/09/2021 2:29 PM EDT XR CHEST AP PORTABLE JESSICA 03/09/2021 12:34 PM EDT GLUCOSE METER POC Routine 03/09/2021 9:54 AM EDT CBC WITH DIFF Timed 03/09/2021 7:42 AM EDT PHOSPHORUS LEVEL Add-On 03/09/2021 7:42 AM EDT MAGNESIUM LEVEL Timed 03/09/2021 7:42 AM EDT BASIC METABOLIC PANEL Timed 03/09/2021 7:42 AM EDT ECG AND WAVEFORMS - TELEMETRY Routine 03/09/2021 7:00 AM EDT GLUCOSE METER POC Routine 03/08/2021 9:33 PM EDT ECG AND WAVEFORMS - TELEMETRY Routine 03/08/2021 7:00 PM EDT GLUCOSE METER POC Routine 03/08/2021 6:04 PM EDT GLUCOSE METER POC Routine 03/08/2021 1:54 PM EDT GLUCOSE METER POC Routine 03/08/2021 10:02 AM EDT D-DIMER Timed 03/08/2021 9:26 AM EDT CBC WITH DIFF Early AM 03/08/2021 9:26 AM EDT C-REACTIVE PROTEIN Timed 03/08/2021 9:26 AM EDT PHOSPHORUS LEVEL Timed 03/08/2021 9:26 AM EDT MAGNESIUM LEVEL Timed 03/08/2021 9:26 AM EDT BASIC METABOLIC PANEL Early AM 03/08/2021 9:26 AM EDT ECG AND WAVEFORMS - TELEMETRY Routine 03/08/2021 7:01 AM EDT GLUCOSE METER POC Routine 03/07/2021 9:58 PM EDT ECG AND WAVEFORMS - TELEMETRY Routine 03/07/2021 7:00 PM EDT GLUCOSE METER POC Routine 03/07/2021 6:46 PM EDT GLUCOSE METER POC Routine 03/07/2021 1:17 PM EDT GLUCOSE METER POC Routine 03/07/2021 9:29 AM EDT ECG AND WAVEFORMS - TELEMETRY Routine 03/07/2021 7:13 AM EDT CBC WITH DIFF Early AM 03/07/2021 6:57 AM EDT MAGNESIUM LEVEL Add-On 03/07/2021 6:57 AM EDT BASIC METABOLIC PANEL Early AM 03/07/2021 6:57 AM EDT C DIFF TOXIN DNA Routine 03/06/2021 11:36 PM EDT SHIGA TOXIN Routine 03/06/2021 11:36 PM EDT STOOL CULTURE (NO STAIN) Routine 03/06/2021 11:36 PM EDT FECAL WHITE BLOOD CELLS Routine 03/06/2021 11:36 PM EDT OVA AND PARASITE BASIC Routine 03/06/2021 11:36 PM EDT GLUCOSE METER POC Routine 03/06/2021 8:00 PM EDT ECG AND WAVEFORMS - TELEMETRY Routine 03/06/2021 7:00 PM EDT ECG AND WAVEFORMS - TELEMETRY Routine 03/06/2021 6:04 PM EDT INSERT PERIPHERAL IV Routine 03/06/2021 1:02 PM EDT GLUCOSE METER POC Routine 03/06/2021 11:43 AM EDT MICROALBUMIN/CREAT ININE RATIO URINE Routine 03/06/2021 9:35 AM EDT D-DIMER Timed 03/06/2021 9:27 AM EDT CBC WITH DIFF Early AM 03/06/2021 9:27 AM EDT C-REACTIVE PROTEIN Timed 03/06/2021 9:27 AM EDT CREATINE KINASE Routine 03/06/2021 9:27 AM EDT BASIC METABOLIC PANEL Early AM 03/06/2021 9:27 AM EDT GLUCOSE METER POC Routine 03/06/2021 8:55 AM EDT US RENAL AND BLADDER JESSICA 03/05/2021 11:24 PM EDT IP CONSULT TO GI Routine 03/05/2021 10:14 PM EDT Procedure Note - Les Louie MD - 03/06/2021 1:24 PM EDTThis note is in progress. GI Consultation: Caroline Romero is a 60 y.o. female asked to see us in consultation Lupillo Bennett MD & Caroline Quintanilla MD for evaluation of chronicdiarrhea. Pt presented to the ED from the infusion center after receiving positivecovid result 03/03. Patient complains of increased dizziness, chest painrated /10, increased shortness of breath, as well as poor PO intake andnausea/vomiting. Symptoms began after diagnosis of COVID. Patient alsoreports TNTC episodes of non- bloody diarrhea, however this is chronic innature and has been an ongoing issue for this patient for the past threeyears. She denies any black/bloody stools. No associated abdominal pain,fever or weight loss. She reports incontinence as well as nocturnalstools. No previous work up/endoscopies for her diarrhea. No FH of coloncancer. Patient was found to be hypotensive In ED and received three liters persepsis protocol, started on levophed due to failure to increase BP onfluids alone. Levo now discontinued. RIJ placed in ED, CXRAY- clear chestxray. Increased CK, D-Dimer, and C-reactive protein upon assessment ofblood work. WBC within normal limits. ?? Prior Endoscopies: Nil Prior to Admission medications Medication Sig Start Date End Date Taking? Authorizing Provider acetaminophen 325 mg Oral Tab Take 2 Tablets by mouth every 6 hours asneeded for Pain or Fever for up to 30 days. 03/03/21 04/02/21 Az Porter APRN acetaminophen 325 mg Oral Tab Take by mouth every 4 hours as needed forPain. Provider, Historical albuterol (PROVENTIL HFA;VENTOLIN HFA) 90 mcg/actuation inhaler Inhale 2Puffs into the lungs every 6 hours as needed for Wheezing. Provider,Historical atorvastatin (LIPITOR) 40 mg Oral Tablet Take 40 mg by mouth daily.Provider, Historical buPROPion (WELLBUTRIN SR) 150 mg SR tablet Take 150 mg by mouth 2 timesdaily. Provider, Historical diazePAM (VALIUM) 5 mg Oral Tablet Take by mouth every 8 hours.Provider, Historical estrogens, conjugated, (PREMARIN) 0.3 mg tablet Take 0.3 mg by mouthdaily. Provider, Historical fenofibrate (LOFIBRA) 160 mg tablet Take 160 mg by mouth daily.Provider, Historical gabapentin (NEURONTIN) 100 mg Oral Capsule Take 100 mg by mouth 3 timesdaily. Provider, Historical guaiFENesin (ROBITUSSIN) 100 mg/5 mL Oral Liquid 200-400 mg every 4 hoursas needed for cough 03/03/21 04/02/21 Noelle Porter APRN HYDROcodone-acetaminophen (LORTAB) 10-500 mg Take 1 Tab by mouth every 6hours as needed. Provider, Historical Insulin glargine (LANTUS) 100 unit/mL (3 mL) SubQ Insulin Pen Subcutaneous(Inject under the skin) 20 Units nightly. 15 units am Provider,Historical INSULIN LISPRO (HUMALOG SUBQ) Subcutaneous (Inject under the skin).Sliding scale Provider, Historical lisinopriL (PRINIVIL;ZESTRIL) 2.5 mg Oral Tablet Take by mouth daily.Provider, Historical methocarbamoL (ROBAXIN) 500 mg Oral Tablet Take 500 mg by mouth 4 timesdaily. Provider, Historical metoprolol (LOPRESSOR) 25 mg tablet Take 25 mg by mouth 2 times daily.Provider, Historical omeprazole (PRILOSEC) 20 mg Take 20 mg by mouth daily. Provider,Historical promethazine (PHENERGAN) 25 mg tablet Take 25 mg by mouth every 6 hours asneeded for Nausea. Provider, Historical spironolactone (ALDACTONE) 50 mg Oral Tablet Take 50 mg by mouth daily.Provider, Historical SUMAtriptan (IMITREX) 100 mg tablet Take 100 mg by mouth once as neededfor Migraine. Provider, Historical tiZANidine (ZANAFLEX) 4 mg tablet Take 4 mg by mouth 3 times daily. Take11/2 tabs as needed Provider, Historical tocopherol acetate (VITAMIN E) 400 unit Oral Capsule Take 400 Units bymouth daily. Provider, Historical topiramate (TOPAMAX) 100 mg Oral Tablet Take by mouth 2 times daily.Provider, Historical Medication: Current Facility-Administered Medications Medication Dose Route Frequency Last Rate Last Admin ? ? 0.9 % NaCl infusion Intravenous Continuous PRN ? ? 0.9 % NaCl infusion Intravenous Continuous 100 mL/hr at 03/06/21928New Bag at 03/06/21928 ? ? acetaminophen (TYLENOL) tablet 650 mg 650 mg Oral Q4H PRN ? ? albuterol (PROVENTIL HFA;VENTOLIN HFA) inhaler 2 Puff 2 Puff [id number] PRN ? ? atropine injection 0.5 mg 0.5 mg Intravenous PRN ? ? benzonatate (TESSALON) capsule 100 mg 100 mg Oral TID PRN 100 mg at03/05/212207 ? ? buPROPion (WELLBUTRIN SR) SR tablet 150 mg 150 mg Oral BID ? ? dextrose 50 % solution 25 mL 25 mL Intravenous PRN ? ? diazePAM (VALIUM) tablet 5 mg 5 mg Oral Nightly PRN 5 mg at ? ? gabapentin (NEURONTIN) capsule 100 mg 100 mg Oral TID ? ? glucagon (GLUCAGEN) injection 1 mg 1 mg Intramuscular PRN And ? ? sterile water injection 1 mL 1 mL Injection PRN ? ? heparin, porcine (PF) injection 5,000 Units 5,000 Units Subcutaneous 2times per day 5,000 Units at 03/06/21918 ? ? insulin aspart U-100 (NovoLOG) injection 1-5 Units 1-5 UnitsSubcutaneous QID WM ? ? insulin aspart U-100 (NovoLOG) injection 3 Units 0.05 Units/kgSubcutaneous TID WM ? ? insulin glargine U-100 (LANTUS) injection 20 Units 20 UnitsSubcutaneous Nightly ? ? morphine injection 1 mg 1 mg Intravenous Q4H PRN 1 mg at ? ? pantoprazole (PROTONIX) 40 mg in sodium chloride 10 mL injection 40 mgIntravenous Daily Or ? ? pantoprazole (PROTONIX) tablet 40 mg 40 mg Oral Daily ? ? promethazine (PHENERGAN) 12.5 mg in sodium chloride 10 mL ukaviuxot35.5 mg Intravenous Q4H PRN 12.5 mg at 03/06/2136 Or ? ? promethazine (PHENERGAN) injection 12.5 mg 12.5 mg Intramuscular Q4HPRN ? ? sodium chloride 0.9% IV line flush 20-50 mL 20-50 mL Intravenous PRN ? ? sodium chloride 0.9% syringe 10 mL 10 mL Intravenous 3 times per day10 mL at 03/06/21 0637 ? ? sodium chloride 0.9% syringe Intravenous PRN ? ? topiramate (TOPAMAX) tablet 50 mg 50 mg Oral BID Allergies: Allergies Allergen Reactions ? ? Advil [Ibuprofen] Other (See Comments) seizures ? ? Sharmaine [Fexofenadine] Other (See Comments) seizures ? ? Augmentin [Amoxicillin-Pot Clavulanate] Other (See Comments) seizures ? ? Axid [Nizatidine] Other (See Comments) seizures ? ? Compazine [Prochlorperazine] Other (See Comments) seizures ? ? Darvocet A500 [Propoxyphene N-Acetaminophen] Other (See Comments) seizures ? ? Reglan [Metoclopramide] Other (See Comments) seizures ? ? Toradol [Ketorolac] Rash ? ? Tramadol Rash ? ? Zofran Odt [Ondansetron] Other (See Comments) seizures Immunizations: There is no immunization history on file for this patient. Family history, past medical history, and social history are reviewedas below. Past 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: Past 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: Diagnosis Date ? ? Asthma ? ? Depression ? ? Diabetes mellitus (HCC) ? ? Encounter for blood transfusion ? ? Headache(784.0) ? ? Heart murmur ? ? Heartburn ? ? Syncope and collapse ? ? Unspecified sleep apnea no machine Past Surgical History: Past Surgical History: Procedure Laterality Date ? ? BACK SURGERY ? ? FOOT SURGERY right x2 left x1 ? ? HAND SURGERY LCTR left trigger finger ? ? HIATAL HERNIA REPAIR x3 ? ? HYSTERECTOMY ? ? KNEE ARTHROSCOPY Left 08/19/2013 Left Knee Arthroscopy Partial Medial Meniscectomy Chondrplasty PatellaFemoral condyle; Surgeon: Alexander Whittington MD; Location: [facility]; Service: Orthopedics ? ? KNEE SURGERY right knee scope Family History: No family history on file. Social History: Social History Tobacco Use ? ? Smoking status: Never Smoker ? ? Smokeless tobacco: Never Used Substance Use Topics ? ? Alcohol use: No ? ? Drug use: No ROS Constitutional: Denies fever,sweats, chills or +weight loss Eyes: Denies change in visual acuity HENT: Denies hearing loss or dizziness Respiratory: Denies cough, +shortness of breath Cardiovascular: Denies edema, +chest pain : Denies dysuria, hematuria, urgency or frequency Musculoskeletal: Denies back pain or joint pain Integument: Denies rash Neurologic: Denies headache, previous stroke, TIA, confusion Endocrine: Denies polyuria or polydipsia Lymphatic: Denies swollen glands Psychiatric: Denies depression or anxiety Hematologic: Denies previous anemia or easy bruising All other review of systems negative, except for those noted. PHYSICAL EXAM: VITAL SIGNS: BP 161/64 Pulse 71 Temp 99.3 ??F (37.4 ??C) (Oral) Resp (!) 30 Ht 5' (1.524 m) Wt 151 lb (68.5 kg) SpO2 96% BMI29.49 kg/m?? Constitutional: Appears acutely ill. Non-toxic appearance. No acutedistress. HENT: Normocephalic. Atraumatic. Bilateral external ears normal,Oropharynx moist. No oral exudate. Nose normal. Eyes: No Scleral icterus Neck: No Cervical or supraclavicular nodes Lymphatic: No lymphadenopathy noted. Cardiovascular: Normal rhythm Thorax & Lungs: non-labored at rest Abdomen: Soft, non-tender. +previous surgical scarring (hernia repair)Bowel sounds are normoactive without bruits. No guarding, spasm orrebound. No hepatomegaly. No splenomegaly. No ascites Rectal: Deferred. Skin: Warm, dry. No erythema. No rash. Extremities: Intact distal pulses, No deformity. No edema. Neurologic: Alert & oriented x 3 RESULTS Lab Results Component Value Date ALT 23 03/05/2021 AST 43 (H) 03/05/2021 ALKPHOS 71 03/05/2021 PROT 8.0 03/05/2021 Lab Results Component Value Date WBC 7.3 03/06/2021 HGB 11.2 03/06/2021 HCT 32.0 (L) 03/06/2021 MCV 92.8 03/06/2021 PLT 122 (L) 03/06/2021 Lab Results Component Value Date CREATININE 1.41 (H) 03/06/2021 BUN 21 03/06/2021 NA 140 03/06/2021 K 3.7 03/06/2021 CL 111 (H) 03/06/2021 CO2 15 (L) 03/06/2021 IMAGES XR CHEST AP PORTABLE Result Date: 03/05/2021 XR CHEST AP PORTABLE, 03/05/2021 2:25 PM CLINICAL HISTORY: -Central lineplacement COMPARISON: Study earlier today PROCEDURE COMMENTS: AP portabletechnique. FINDINGS: New right jugular central line with tip nearcavoatrial junction. No evidence pneumothorax. Heart size upper normal butstable. Lungs remain clear. Spinal surgical hardware unchanged. Status post right jugular central line placement without radiographicevidence of complication. - Note: Radiology results need to be interpretedwithin a comprehensive clinical context. If you have questions about theradiology report, please contact the office of the ordering clinician. US RENAL AND BLADDER Result Date: 03/06/2021 CLINICAL HISTORY: -jie. COMPARISON: 12/30/2016. TECHNIQUE: US RENAL ANDBLADDER on 03/05/2021 11:24 PM. FINDINGS: The kidneys were sonographicallynormal. The right kidney measured 8.2 x 6.2 x 4.5 cm while the left kidneymeasured 7.5 x 4.6 x 4.3 cm. There was no shadowing calculus, perinephricfluid collection, or hydronephrosis. The urinary bladder was decompressedby a Garza catheter. 1. No acute findings or abnormalities to explain the patient's symptomsNote: Radiology results need to be interpreted within a comprehensiveclinical context. If you have questions about the radiology report,please contact the office of the ordering clinician. ASSESSMENT A 60yo CAF with COVID 19 infection referred for evaluation of chronicdiarrhea Patient Active Problem List Diagnosis ? ? Difficult airway for intubation ? ? Unstable angina pectoris (HCC) ? ? JIE (acute kidney injury) (HCC) ? ? Essential hypertension ? ? COVID ? ? COVID-19 virus infection ? ? COVID-19 ? ? Chronic diarrhea ? ? Diabetes mellitus (HCC) ? ? Hypotension ? ? Migraines ? ? Metabolic acidosis, NAG, bicarbonate losses Plan 1. Chronic diarrhea Ddx include IBS-diarrhea, IBD, microscopic colitis, enteropathy etc -- Stool studies, including C diff assay -- Initiate probiotics and citrucel -- Continue diet as tolerated Would hesitate to workup diarrhea during her COVID 19 infection, as thelab results could be skewed. Recommend f/u in office for further diarrheal workup, if stool studies arenegative. She has managed her chronic diarrhea for several years, andthere is no urgency to work this up during her acute illness 2. Acute kidney injury. Related to COVID infection Improving with fluid resuscitation. -- ghada I/O and renal panel 3. COVID positive 03/04 -- mgt per CCM 4. Nausea, poor PO intake, onset after COVID diagnosis Related to acute illness -- analgesia/antiemetics prn -- on protonix 40mg daily Thanks for allowing me to assist with care of this patient I have personally performed a face to face diagnostic evaluation of thispatient, including reviewing the chief complaint, HPI, ROS as well as thepast medical/social/family history sections for this patient and performeda physical exam. The labs, radiographic studies and the plan have beenreviewed. This patient was seen in coordination with [facility] [employer] INSPECTOR. Electronically signed by: Les Louie MD, 03/06/2021 1:23 PM SEP Gastroenterology C-REACTIVE PROTEIN Routine 03/05/2021 10:01 PM EDT HEMOGLOBIN A1C Routine 03/05/2021 10:01 PM EDT ADMIT Routine 03/05/2021 9:13 PM EDT GLUCOSE METER POC Routine 03/05/2021 8:35 PM EDT IP CONSULT TO [facility] Routine 03/05/2021 7:26 PM EDT GLUCOSE METER POC Routine 03/05/2021 6:07 PM EDT D-DIMER Add-On 03/05/2021 10:45 AM EDT documented in this encounter Results * [facility] (03/20/2021 11:16 AM EDT) 03/20/2021 11:1 6 AM EDT us Unknown Provider HEMATOLOGY ORDERABLES Final Res ult * (ABNORMAL) GLUCOSE METER POC (03/14/2021 10:00 AM EDT) Glucose Meter POC 160(H) 70 - 100 mg/dL 03/14/2021 10:01 AM EDT [facility] Sample Type Capillary 03/14/2021 10:01 AM EDT [facility] Patient Status Non-Critical Patient 03/14/2021 10:01 AM EDT [facility] Blood BLOOD SPECIMEN / Unknown 03/14/2021 10:00 AM EDT 03/14/2021 10:01 AM EDT us Caroline Quintanilla MD POINT OF CARE TEST ORDERABLE S Final Result Performing Organization Address City/[facility]/ZIP Co de Phone Number [facility] [address] [place] [address] * ECG AND WAVEFORMS - TELEMETRY (03/14/2021 7:06 AM EDT) [facility] ECG INTERPRET NSR [facility] 03/14/2021 7:06 AM EDT Narrative [facility] - 03/14/2021 7:54 AM EDT VM/HICUITY/ROUTINE ??CO 0.15 ??QRS 0.10 ??QT 0.47 ??See Clinical Report link for waveform capture us Unknown Provider POINT OF CARE CARDIOLOGY Final Result Performing Organization Address [facility]/ZIP Co de Phone Number [facility] [address] [place] [address] * (ABNORMAL) C-REACTIVE PROTEIN (03/14/2021 5:51 AM EDT) [facility] CRP 9.21(H) <=5.00 mg/L 03/14/2021 7:14 AM EDT [facility] Blood VENOUS BLOOD / Unknown Venipuncture / Unknown 03/14/2021 5:51 AM EDT 03/14/2021 6:23 AM EDT us Leonardo Zepeda MD (Ronny) CHEMISTRY ORDER ISRRAEL Final Result [facility], [address] , [place] [address] * (ABNORMAL) D-DIMER (03/14/2021 5:51 AM EDT) [facility] D-Dimer 723(H) <=500 ng/mL FEU 03/14/2021 6:56 AM EDT [facility] Comment:This is an automated latex enhanced immunoassay for the quantitative determination of D-Dimer that may be used, in conjunction with a clinical pretest probability assessment, to exclude venous thromboembolism in patients suspected of deep venous thrombosis (DVT) and pulmonary embolism (PE). The cutoff for exclusion of DVT and PE is 500 ng/mL Fibrinogen Equivalent Units (FEU). Elevated D-Dimer levels may be associated with PE, DVT, disseminated intravascular coagulation, recent surgery, recent bleeding, , malignancy, and inflammation. Blood VENOUS BLOOD / Unknown Venipuncture / Unknown 03/14/2021 5:51 AM EDT 03/14/2021 6:23 AM EDT Narrative [facility] - 03/14/2021 6:56 AM EDT For patients between the ages of 50 - 75, an age-adjusted D-Dimer cut-off in combination with non-high clinical probability may be considered for the exclusion of venous thromboembolism (calculation = age x 10). RAZIA Hdez, et al. [employer]. 2017;166(5):361-363 PAULA Negron, et al. [employer]. 2015;(163):[phone]. Lit Mcgowan, et al. KELVIN. 2014;(11):4225-2502. us Leonardo Zepeda MD (Ronny) HEMATOLOGY FEDE CANO Final Result [facility] [address] , [place] [address] * (ABNORMAL) GLUCOSE METER POC (03/13/2021 10:48 PM EDT) [facility] Glucose Meter POC 204(H) 70 - 100 mg/dL 03/13/2021 10:49 PM EDT [facility] Sample Type Capillary 03/13/2021 10:49 PM EDT [facility] Patient Status Non-Critical Patient 03/13/2021 10:49 PM EDT [facility] Blood BLOOD SPECIMEN / Unknown 03/13/2021 10:48 PM EDT 03/13/2021 10:49 PM EDT us Caroline Quintanilla MD POINT OF CARE TEST ORDERABLE S Final Result Performing Organization Address City/[facility] Co de Phone Number [facility] [address] [place] [phone] * (ABNORMAL) GLUCOSE METER POC (03/13/2021 7:52 PM EDT) Glucose Meter POC 249(H) 70 - 100 mg/dL 03/13/2021 7:54 PM EDT [facility] Sample Type Capillary 03/13/2021 7:54 PM EDT [facility] Patient Status Non-Critical Patient 03/13/2021 7:54 PM EDT [facility] Blood BLOOD SPECIMEN / Unknown 03/13/2021 7:52 PM EDT 03/13/2021 7:54 PM EDT us Caroline Quintanilla MD POINT OF CARE TEST ORDERABLE S Final Result Performing Organization Address [facility] [place] [address] * ECG AND WAVEFORMS - TELEMETRY (03/13/2021 7:00 PM EDT) ECG INTERPRET NSR [facility] 03/13/2021 7:00 PM EDT Narrative [facility] - 03/13/2021 7:49 PM EDT JN/HICUITY ROUTINE ??CO 0.12 ??QRS 0.11 ??QT 0.42 ??See Clinical Report link for waveform capture us Unknown Provider POINT OF CARE CARDIOLOGY Final Result [facility] [address] [place] [address] * (ABNORMAL) GLUCOSE METER POC (03/13/2021 4:34 PM EDT) Glucose Meter POC 352(H) 70 - 100 mg/dL 03/13/2021 4:35 PM EDT [facility] Sample Type Capillary 03/13/2021 4:35 PM EDT [facility] Patient Status Non-Critical Patient 03/13/2021 4:35 PM EDT [facility] Blood BLOOD SPECIMEN / Unknown 03/13/2021 4:34 PM EDT 03/13/2021 4:35 PM EDT us Caroline Quintanilla MD POINT OF CARE TEST ORDERABLE S Final Result Performing Organization Address City/[facility]/ZIP Co de Phone Number [facility] [address] [place] [phone] * (ABNORMAL) GLUCOSE METER POC (03/13/2021 12:10 PM EDT) Glucose Meter POC 155(H) 70 - 100 mg/dL 03/13/2021 12:11 PM EDT [facility] Sample Type Capillary 03/13/2021 12:11 PM EDT [facility] Patient Status Non-Critical Patient 03/13/2021 12:11 PM EDT [facility] Blood BLOOD SPECIMEN / Unknown 03/13/2021 12:10 PM EDT 03/13/2021 12:11 PM EDT us Caroline Quintanilla MD POINT OF CARE TEST ORDERABLE S Final Result [facility] [address] [place] [phone] * ECG AND WAVEFORMS - TELEMETRY (03/13/2021 7:00 AM EDT) ECG INTERPRET NSR [facility] 03/13/2021 7:00 AM EDT Narrative [facility] - 03/13/2021 9:57 AM EDT AR/HICUITY ROUTINE ??CO 0.13 ??QRS 0.09 ??QT 0.45 ??See Clinical Report link for waveform capture us Unknown Provider POINT OF CARE CARDIOLOGY Final Result [facility] [address] [place] [phone] * (ABNORMAL) COMPREHENSIVE METABOLIC PANEL (03/13/2021 6:59 AM EDT) Sodium 145 136 - 145 mmol/L 03/13/2021 7:54 AM EDT [facility] Potassium 3.0(L) 3.5 - 5.0 mmol/L 03/13/2021 7:54 AM EDT [facility] Chloride 107 98 - 107 mmol/L 03/13/2021 7:54 AM EDT [facility] Total CO2 23 22 - 29 mmol/L 03/13/2021 7:54 AM EDT [facility] Anion Gap 15 7 - 16 mmol/L 03/13/2021 7:54 AM EDT [facility] Calcium 8.7(L) 8.8 - 10.4 mg/dL 03/13/2021 7:54 AM EDT [facility] Glucose Lvl 130(H) 82 - 100 mg/dL 03/13/2021 7:54 AM EDT [facility] BUN 25(H) 8 - 23 mg/dL 03/13/2021 7:54 AM EDT [facility] Creatinine 0.97 0.51 - 1.30 mg/dL 03/13/2021 7:54 AM EDT [facility] Albumin 3.5 3.2 - 4.6 gm/dL 03/13/2021 7:54 AM EDT [facility] Total Protein 6.8 6.4 - 8.3 gm/dL 03/13/2021 7:54 AM EDT [facility] Bili Total 0.3 0.1 - 1.3 mg/dL 03/13/2021 7:54 AM EDT [facility] ALT 29 <=41 U/L 03/13/2021 7:54 AM EDT [facility] AST 25 <=40 U/L 03/13/2021 7:54 AM EDT [facility] Alk Phos 63 36 - 123 U/L 03/13/2021 7:54 AM EDT [facility] GFR Afr Am 73 >=60 mL/min/1.7 3 m2 03/13/2021 7:54 AM EDT [facility] GFR Non Afr Am 64 >=60 mL/min/1.7 3 m2 03/13/2021 7:54 AM EDT [facility] Comment: This estimated GFR was calculated using CKD-EPI equation which is modified based on ethnicity for Non Americans and Americans. Both results are reported since it is not always possible to determine the patient's ethnicity. This equation should only be used for individuals 18 and older. It has not been validated for use with the elderly (>70 years), women, or in some racial or ethnic subgroups, such as Hispanics. The equation will be less accurate in people with differences in nutritional status or muscle mass. Blood VENOUS BLOOD / Unknown Venipuncture / Unknown 03/13/2021 6:59 AM EDT 03/13/2021 7:07 AM EDT Herbie Haider MD CHEMISTRY ORDERABLES Final Resu lt [facility] [address] [facility], [place] [address] [facility] [address] [place], [place] [phone] * (ABNORMAL) GLUCOSE METER POC (03/12/2021 9:55 PM EDT) [facility] Glucose Meter POC 425(H) 70 - 100 mg/dL 03/12/2021 9:56 PM EDT [facility] Sample Type Capillary 03/12/2021 9:56 PM EDT [facility] Patient Status Non-Critical Patient 03/12/2021 9:56 PM EDT [facility] Blood BLOOD SPECIMEN / Unknown 03/12/2021 9:55 PM EDT 03/12/2021 9:56 PM EDT us Caroline Quintanilla MD POINT OF CARE TEST ORDERABLE S Final Result Performing Organization Address [facility] Co de Phone Number [facility] [address] [place] [address] * ECG AND WAVEFORMS - TELEMETRY (03/12/2021 7:00 PM EDT) ECG INTERPRET NSR [facility] 03/12/2021 7:00 PM EDT Narrative [facility] - 03/12/2021 8:04 PM EDT /CZ/HICUITY/ROUTINE ??CO 0.12 ??QRS 0.08 ??QT 0.41 ??See Clinical Report link for waveform capture us Unknown Provider POINT OF CARE CARDIOLOGY Final Result Performing Organization Address [facility] de Phone Number [facility] [address] [place] [address] * (ABNORMAL) GLUCOSE METER POC (03/12/2021 6:42 PM EDT) Glucose Meter POC 316(H) 70 - 100 mg/dL 03/12/2021 6:44 PM EDT [facility] Sample Type Capillary 03/12/2021 6:44 PM EDT [facility] Patient Status Non-Critical Patient 03/12/2021 6:44 PM EDT [facility] Blood BLOOD SPECIMEN / Unknown 03/12/2021 6:42 PM EDT 03/12/2021 6:44 PM EDT us Caroline Quintanilla MD POINT OF CARE TEST ORDERABLE S Final Result Performing Organization Address [facility] Co de Phone Number [facility] [address] [place], [place] [phone] * (ABNORMAL) GLUCOSE METER POC (03/12/2021 1:09 PM EDT) Glucose Meter POC 251(H) 70 - 100 mg/dL 03/13/2021 7:58 AM EDT [facility] Sample Type Capillary 03/13/2021 7:58 AM EDT [facility] Patient Status Non-Critical Patient 03/13/2021 7:58 AM EDT [facility] Blood BLOOD SPECIMEN / Unknown 03/12/2021 1:09 PM EDT 03/13/2021 7:58 AM EDT Caroline Quintanilla MD POINT OF CARE TEST ORDERABLE S Final Result Performing Organization Address [facility]/[place] [address] * (ABNORMAL) GLUCOSE METER POC (03/12/2021 9:41 AM EDT) Glucose Meter POC 177(H) 70 - 100 mg/dL 03/12/2021 9:43 AM EDT [facility] Sample Type Capillary 03/12/2021 9:43 AM EDT [facility] Patient Status Non-Critical Patient 03/12/2021 9:43 AM EDT [facility] Blood BLOOD SPECIMEN / Unknown 03/12/2021 9:41 AM EDT 03/12/2021 9:43 AM EDT Caroline Quintanilla MD POINT OF CARE TEST ORDERABLE S Final Result Performing Organization Address City/[facility]/ZIP Co de Phone Number [place] [phone] * ECG AND WAVEFORMS - TELEMETRY (03/12/2021 7:00 AM EDT) ECG INTERPRET Bradycardia [facility] Comment:asymptomatic 03/12/2021 7:00 AM EDT Narrative [facility] - 03/12/2021 8:43 AM EDT WW/HICUITY ROUTINE ??CO 0.13 ??QRS 0.11 ??RR 1.03 ??QT 0.48 ??QTc 0.47 ??See Clinical Report link for waveform capture us Unknown Provider POINT OF CARE CARDIOLOGY Final Result Performing Organization Address City/[facility]/ZIP Co de Phone Number [facility] [address] [place], [place] [phone] * (ABNORMAL) C-REACTIVE PROTEIN (03/12/2021 4:31 AM EDT) CRP 7.93(H) <=5.00 mg/L 03/12/2021 5:14 AM EDT [facility] Blood VENOUS BLOOD / Unknown Venipuncture / Unknown 03/12/2021 4:31 AM EDT 03/12/2021 4:38 AM EDT us Leonardo Pena (Dmitri) Katelyn MEEKS CHEMISTRY ORDER ISRRAEL Final Result Performing Organization Address [facility] de Phone Number [facility] [address], [address] [place] [phone] * (ABNORMAL) D-DIMER (03/12/2021 4:31 AM EDT) D-Dimer 730(H) <=500 ng/mL FEU 03/12/2021 4:56 AM EDT [facility] Comment:This is an automated latex enhanced immunoassay for the quantitative determination of D-Dimer that may be used, in conjunction with a clinical pretest probability assessment, to exclude venous thromboembolism in patients suspected of deep venous thrombosis (DVT) and pulmonary embolism (PE). The cutoff for exclusion of DVT and PE is 500 ng/mL Fibrinogen Equivalent Units (FEU). Elevated D-Dimer levels may be associated with PE, DVT, disseminated intravascular coagulation, recent surgery, recent bleeding, , malignancy, and inflammation. Blood VENOUS BLOOD / Unknown Venipuncture / Unknown 03/12/2021 4:31 AM EDT 03/12/2021 4:38 AM EDT Narrative [email or web address] - 03/12/2021 4:56 AM EDT For patients between the ages of 50 - 75, an age-adjusted D-Dimer cut-off in combination with non-high clinical probability may be considered for the exclusion of venous thromboembolism (calculation = age x 10). RAZIA Hdez, et al. [employer]. 2017;166(5):361-363 PAULA Negron, et al. [employer]. 2015;(212):[phone]. Lit Mcgowan et al. KELVIN. 2014;(11):5795-5497. Leonardo Zepeda MD (Ronny) HEMATOLOGY ORDE RABLES Final Result Performing Organization Address City/[facility]/ZIP Co de Phone Number [facility] [address] [facility] , [place] [address] * PHOSPHORUS LEVEL (03/12/2021 4:31 AM EDT) Phosphorus 3.7 2.5 - 4.5 mg/dL 03/12/2021 5:14 AM EDT [facility] Blood VENOUS BLOOD / Unknown Venipuncture / Unknown 03/12/2021 4:31 AM EDT 03/12/2021 4:38 AM EDT us Leonardo Zepeda MD (Ronny) CHEMISTRY ORDER ISRRAEL Final Result Performing Organization Address [facility] Co de Phone Number [email or web address] [address] [facility] , [place] [address] * MAGNESIUM LEVEL (03/12/2021 4:31 AM EDT) Magnesium 1.6 1.6 - 2.4 mg/dL 03/12/2021 5:14 AM EDT [facility] Blood VENOUS BLOOD / Unknown Venipuncture / Unknown 03/12/2021 4:31 AM EDT 03/12/2021 4:38 AM EDT us Leonardo Zepeda MD (Ronny) CHEMISTRY ORDER ISRRAEL Final Result Performing Organization Address City/[facility] Co de Phone Number [email or web address] [facility] [address] [facility] , [place] [address] * (ABNORMAL) COMPREHENSIVE METABOLIC PANEL (03/12/2021 4:31 AM EDT) Sodium 144 136 - 145 mmol/L 03/12/2021 5:14 AM EDT [facility] Potassium 3.7 3.5 - 5.0 mmol/L 03/12/2021 5:14 AM EDT [facility] Chloride 109(H) 98 - 107 mmol/L 03/12/2021 5:14 AM EDT [facility] Total CO2 23 22 - 29 mmol/L 03/12/2021 5:14 AM EDT [facility] Anion Gap 12 7 - 16 mmol/L 03/12/2021 5:14 AM EDT [facility] Calcium 8.7(L) 8.8 - 10.4 mg/dL 03/12/2021 5:14 AM EDT [facility] Glucose Lvl 238(H) 82 - 100 mg/dL 03/12/2021 5:14 AM EDT [facility] BUN 30(H) 8 - 23 mg/dL 03/12/2021 5:14 AM EDT [facility] Creatinine 1.07 0.51 - 1.30 mg/dL 03/12/2021 5:14 AM EDT [facility] Albumin 3.7 3.2 - 4.6 gm/dL 03/12/2021 5:14 AM EDT [facility] Total Protein 6.6 6.4 - 8.3 gm/dL 03/12/2021 5:14 AM EDT [facility] Bili Total 0.3 0.1 - 1.3 mg/dL 03/12/2021 5:14 AM EDT [facility] ALT 37 <=41 U/L 03/12/2021 5:14 AM EDT [facility] AST 33 <=40 U/L 03/12/2021 5:14 AM EDT [facility] Alk Phos 59 36 - 123 U/L 03/12/2021 5:14 AM EDT [facility] GFR Afr Am 65 >=60 mL/min/1.7 3 m2 03/12/2021 5:14 AM EDT [facility] GFR Non Afr Am 57(L) >=60 mL/min/1.7 3 m2 03/12/2021 5:14 AM EDT [facility] Comment: This estimated GFR was calculated using CKD-EPI equation which is modified based on ethnicity for Non Americans and Americans. Both results are reported since it is not always possible to determine the patient's ethnicity. This equation should only be used for individuals 18 and older. It has not been validated for use with the elderly (>70 years), women, or in some racial or ethnic subgroups, such as Hispanics. The equation will be less accurate in people with differences in nutritional status or muscle mass. Blood VENOUS BLOOD / Unknown Venipuncture / Unknown 03/12/2021 4:31 AM EDT 03/12/2021 4:38 AM EDT us Herbie Haider MD CHEMISTRY ORDERABLES Final Resu lt Performing Organization Address [facility]/ZIP Co de Phone Number [facility] [employer] [address], [place] [address] [facility] [address] [place], [place] [phone] * (ABNORMAL) GLUCOSE METER POC (03/11/2021 9:48 PM EDT) [facility] Glucose Meter POC 329(H) 70 - 100 mg/dL 03/11/2021 9:49 PM EDT [facility] Sample Type Capillary 03/11/2021 9:49 PM EDT [facility] Patient Status Non-Critical Patient 03/11/2021 9:49 PM EDT [facility] Blood BLOOD SPECIMEN / Unknown 03/11/2021 9:48 PM EDT 03/11/2021 9:49 PM EDT us Caroline Quintanilla MD POINT OF CARE TEST ORDERABLE S Final Result Performing Organization Address [facility]/[place] [address] * ECG AND WAVEFORMS - TELEMETRY (03/11/2021 7:00 PM EDT) ECG INTERPRET NSR [facility] 03/11/2021 7:00 PM EDT Narrative [facility] - 03/11/2021 8:23 PM EDT BR/HICUITY ROUTINE ??CO 0.13 ??QRS 0.06 ??QT 0.40 ??See Clinical Report link for waveform capture us Unknown Provider POINT OF CARE CARDIOLOGY Final Result [facility] [address] [place] [phone] * (ABNORMAL) GLUCOSE METER POC (03/11/2021 5:33 PM EDT) [facility] Glucose Meter POC 368(H) 70 - 100 mg/dL 03/11/2021 5:34 PM EDT [facility] Sample Type Capillary 03/11/2021 5:34 PM EDT [facility] Patient Status Non-Critical Patient 03/11/2021 5:34 PM EDT [facility] Blood BLOOD SPECIMEN / Unknown 03/11/2021 5:33 PM EDT 03/11/2021 5:34 PM EDT us Caroline Quintanilla MD POINT OF CARE TEST ORDERABLE S Final Result Performing Organization Address [facility] Co de Phone Number [facility] [address] [place] [phone] * (ABNORMAL) GLUCOSE METER POC (03/11/2021 12:58 PM EDT) Glucose Meter POC 258(H) 70 - 100 mg/dL 03/11/2021 12:59 PM EDT [facility] Sample Type Capillary 03/11/2021 12:59 PM EDT [facility] Patient Status Non-Critical Patient 03/11/2021 12:59 PM EDT [facility] Blood BLOOD SPECIMEN / Unknown 03/11/2021 12:58 PM EDT 03/11/2021 12:59 PM EDT us Caroline Quintanilla MD POINT OF CARE TEST ORDERABLE S Final Result Performing Organization Address [facility] Co de Phone Number [facility] [address] [place] [address] * (ABNORMAL) GLUCOSE METER POC (03/11/2021 9:18 AM EDT) [facility] Glucose Meter POC 180(H) 70 - 100 mg/dL 03/11/2021 9:20 AM EDT [facility] Sample Type Capillary 03/11/2021 9:20 AM EDT [facility] Patient Status Non-Critical Patient 03/11/2021 9:20 AM EDT [facility] Blood BLOOD SPECIMEN / Unknown 03/11/2021 9:18 AM EDT 03/11/2021 9:20 AM EDT us Caroline Quintanilla MD POINT OF CARE TEST ORDERABLE S Final Result Performing Organization Address [facility] Co de Phone Number [facility] [address] [place] [address] * ECG AND WAVEFORMS - TELEMETRY (03/11/2021 7:47 AM EDT) [facility] ECG INTERPRET NSR [facility] 03/11/2021 7:47 AM EDT Narrative [facility] - 03/11/2021 7:58 AM EDT KL/HICUITY ROUTINE ??CO 0.16 ??QRS 0.11 ??QT 0.49 ??See Clinical Report link for waveform capture us Unknown Provider POINT OF CARE CARDIOLOGY Final Result Performing Organization Address City/[facility] Co de Phone Number [facility] [address] [place] [address] * (ABNORMAL) COMPREHENSIVE METABOLIC PANEL (03/11/2021 6:14 AM EDT) Sodium 142 136 - 145 mmol/L 03/11/2021 6:49 AM EDT [facility] Potassium 3.6 3.5 - 5.0 mmol/L 03/11/2021 6:49 AM EDT [facility] Chloride 107 98 - 107 mmol/L 03/11/2021 6:49 AM EDT [facility] Total CO2 21(L) 22 - 29 mmol/L 03/11/2021 6:49 AM EDT [facility] [facility] Anion Gap 14 7 - 16 mmol/L 03/11/2021 6:49 AM EDT [facility] Calcium 9.0 8.8 - 10.4 mg/dL 03/11/2021 6:49 AM EDT [facility] Glucose Lvl 221(H) 82 - 100 mg/dL 03/11/2021 6:49 AM EDT [facility] BUN 31(H) 8 - 23 mg/dL 03/11/2021 6:49 AM EDT [facility] Creatinine 1.13 0.51 - 1.30 mg/dL 03/11/2021 6:49 AM EDT [facility] Albumin 3.6 3.2 - 4.6 gm/dL 03/11/2021 6:49 AM EDT [facility] Total Protein 7.2 6.4 - 8.3 gm/dL 03/11/2021 6:49 AM EDT [facility] Bili Total 0.3 0.1 - 1.3 mg/dL 03/11/2021 6:49 AM EDT [facility] ALT 37 <=41 U/L 03/11/2021 6:49 AM EDT [facility] AST 33 <=40 U/L 03/11/2021 6:49 AM EDT [facility] Alk Phos 57 36 - 123 U/L 03/11/2021 6:49 AM EDT [facility] GFR Afr Am 61 >=60 mL/min/1.7 3 m2 03/11/2021 6:49 AM EDT [facility] GFR Non Afr Am 53(L) >=60 mL/min/1.7 3 m2 03/11/2021 6:49 AM EDT [facility] Comment: This estimated GFR was calculated using CKD-EPI equation which is modified based on ethnicity for Non Americans and Americans. Both results are reported since it is not always possible to determine the patient's ethnicity. This equation should only be used for individuals 18 and older. It has not been validated for use with the elderly (>70 years), women, or in some racial or ethnic subgroups, such as Hispanics. The equation will be less accurate in people with differences in nutritional status or muscle mass. Blood VENOUS BLOOD / Unknown Venipuncture / Unknown 03/11/2021 6:14 AM EDT 03/11/2021 6:20 AM EDT Herbie Haider MD CHEMISTRY ORDERABLES Final Resu lt Performing Organization Address [facility] Co de Phone Number [facility] [facility] [address] [facility], [place] [address] [facility] [address] [place] [address] * (ABNORMAL) GLUCOSE METER POC (03/10/2021 8:58 PM EDT) Glucose Meter POC 377(H) 70 - 100 mg/dL 03/10/2021 8:59 PM EDT [facility] Sample Type Capillary 03/10/2021 8:59 PM EDT [facility] Patient Status Non-Critical Patient 03/10/2021 8:59 PM EDT [facility] Blood BLOOD SPECIMEN / Unknown 03/10/2021 8:58 PM EDT 03/10/2021 8:59 PM EDT Caroline Quintanilla MD POINT OF CARE TEST ORDERABLE S Final Result Performing Organization Address [facility] [place] [address] * ECG AND WAVEFORMS - TELEMETRY (03/10/2021 7:00 PM EDT) ECG INTERPRET NSR [facility] 03/10/2021 7:00 PM EDT Narrative [facility] - 03/10/2021 7:49 PM EDT /INÉS ROUTINE ??CO 0.12 ??QRS 0.11 ??QT 0.44 ??See Clinical Report link for waveform capture us Unknown Provider POINT OF CARE CARDIOLOGY Final Result Performing Organization Address [facility] Co de Phone Number [facility] 1 [place], [place] [id number] * (ABNORMAL) GLUCOSE METER POC (03/10/2021 5:40 PM EDT) Glucose Meter POC 307(H) 70 - 100 mg/dL 03/10/2021 5:41 PM EDT [facility] Sample Type Capillary 03/10/2021 5:41 PM EDT [facility] Patient Status Non-Critical Patient 03/10/2021 5:41 PM EDT [facility] Blood BLOOD SPECIMEN / Unknown 03/10/2021 5:40 PM EDT 03/10/2021 5:41 PM EDT us Caroline Quintanilla MD POINT OF CARE TEST ORDERABLE S Final Result Performing Organization Address [facility] de Phone Number [facility] [address] [place] [address] * FECAL CALPROTECTIN (03/10/2021 4:15 PM EDT) [facility] Signature Fecal Calprotectin 19 <50 ug/g 03/12/2021 2:35 PM EDT [facility] Comment: Normal: ?<50 ug/g Borderline: ?50-120 ug/g Elevated: ?>120 ug/g Stool SPECIMEN FROM RECTUM / Unknown 03/10/2021 4:15 PM EDT 03/10/2021 4:15 PM EDT us Evelia Richardson CHIEF MECHANICAL ENGINEER IMMUNOLOGY ORDERABLES Fin al Result Performing Organization Address City/[facility]/ZIP Co de Phone Number [facility] [address] [place] [phone] * (ABNORMAL) GLUCOSE METER POC (03/10/2021 1:34 PM EDT) Glucose Meter POC 347(H) 70 - 100 mg/dL 03/10/2021 1:35 PM EDT [facility] Sample Type Capillary 03/10/2021 1:35 PM EDT [facility] Patient Status Non-Critical Patient 03/10/2021 1:35 PM EDT [facility] Blood BLOOD SPECIMEN / Unknown 03/10/2021 1:34 PM EDT 03/10/2021 1:35 PM EDT Caroline Quintanilla MD POINT OF CARE TEST ORDERABLE S Final Result [address] [address] * (ABNORMAL) GLUCOSE METER POC (03/10/2021 9:41 AM EDT) Glucose Meter POC 177(H) 70 - 100 mg/dL 03/10/2021 9:42 AM EDT [facility] Sample Type Capillary 03/10/2021 9:42 AM EDT [facility] Patient Status Non-Critical Patient 03/10/2021 9:42 AM EDT [facility] Blood BLOOD SPECIMEN / Unknown 03/10/2021 9:41 AM EDT 03/10/2021 9:42 AM EDT Caroline Quintanilla MD POINT OF CARE TEST ORDERABLE S Final Result [address] [address] * (ABNORMAL) C-REACTIVE PROTEIN (03/10/2021 7:41 AM EDT) CRP 36.92(H) <=5.00 mg/L 03/10/2021 8:47 AM EDT [facility] [place] Blood VENOUS BLOOD / Unknown Venipuncture / Unknown 03/10/2021 7:41 AM EDT 03/10/2021 8:12 AM EDT us Leonardo Zepeda MD (Ronny) CHEMISTRY ORDER ISRRAEL Final Result Performing Organization Address City/[facility]/ZIP Co de Phone Number [facility] [address] [place] [address] , [place] [address] * (ABNORMAL) D-DIMER (03/10/2021 7:41 AM EDT) D-Dimer 628(H) <=500 ng/mL FEU 03/10/2021 8:24 AM EDT [facility] Comment:This is an automated latex enhanced immunoassay for the quantitative determination of D-Dimer that may be used, in conjunction with a clinical pretest probability assessment, to exclude venous thromboembolism in patients suspected of deep venous thrombosis (DVT) and pulmonary embolism (PE). The cutoff for exclusion of DVT and PE is 500 ng/mL Fibrinogen Equivalent Units (FEU). Elevated D-Dimer levels may be associated with PE, DVT, disseminated intravascular coagulation, recent surgery, recent bleeding, , malignancy, and inflammation. Blood VENOUS BLOOD / Unknown Venipuncture / Unknown 03/10/2021 7:41 AM EDT 03/10/2021 8:12 AM EDT Narrative [facility] - 03/10/2021 8:24 AM EDT For patients between the ages of 50 - 75, an age-adjusted D-Dimer cut-off in combination with non-high clinical probability may be considered for the exclusion of venous thromboembolism (calculation = age x 10). RAZIA Hdez, et al. [employer]. 2017;166(5):361-363 PAULA Negron, et al. [employer]. 2015;(163):701-711. Lit Mcgowan, et al. KELVIN. 2014;(11):1657-6844. us Leonardo Zepeda MD (Ronny) HEMATOLOGY ORDE RABLES Final Result Performing Organization Address City/[facility]/ZIP Co de Phone Number [facility] [address] [facility] , [place] [address] * (ABNORMAL) COMPREHENSIVE METABOLIC PANEL (03/10/2021 7:41 AM EDT) [facility] Sodium 141 136 - 145 mmol/L 03/10/2021 8:48 AM EDT [facility] Potassium 3.8 3.5 - 5.0 mmol/L 03/10/2021 8:48 AM EDT [facility] Chloride 108(H) 98 - 107 mmol/L 03/10/2021 8:48 AM EDT [facility] Total CO2 16(L) 22 - 29 mmol/L 03/10/2021 8:48 AM EDT [facility] Anion Gap 17(H) 7 - 16 mmol/L 03/10/2021 8:48 AM EDT [facility] Calcium 9.0 8.8 - 10.4 mg/dL 03/10/2021 8:48 AM EDT [facility] Glucose Lvl 193(H) 82 - 100 mg/dL 03/10/2021 8:48 AM EDT [facility] BUN 29(H) 8 - 23 mg/dL 03/10/2021 8:48 AM EDT [facility] Creatinine 1.06 0.51 - 1.30 mg/dL 03/10/2021 8:48 AM EDT [facility] Albumin 3.7 3.2 - 4.6 gm/dL 03/10/2021 8:48 AM EDT [facility] Total Protein 7.2 6.4 - 8.3 gm/dL 03/10/2021 8:48 AM EDT [facility] Bili Total 0.3 0.1 - 1.3 mg/dL 03/10/2021 8:48 AM EDT [facility] ALT 34 <=41 U/L 03/10/2021 8:48 AM EDT [facility] AST 51(H) <=40 U/L 03/10/2021 8:48 AM EDT [facility] Alk Phos 58 36 - 123 U/L 03/10/2021 8:48 AM EDT [facility] GFR Afr Am 66 >=60 mL/min/1.7 3 m2 03/10/2021 8:48 AM EDT [facility] GFR Non Afr Am 57(L) >=60 mL/min/1.7 3 m2 03/10/2021 8:48 AM EDT [facility] Comment: This estimated GFR was calculated using CKD-EPI equation which is modified based on ethnicity for Non Americans and Americans. Both results are reported since it is not always possible to determine the patient's ethnicity. This equation should only be used for individuals 18 and older. It has not been validated for use with the elderly (>70 years), women, or in some racial or ethnic subgroups, such as Hispanics. The equation will be less accurate in people with differences in nutritional status or muscle mass. Blood VENOUS BLOOD / Unknown Venipuncture / Unknown 03/10/2021 7:41 AM EDT 03/10/2021 8:12 AM EDT us Herbie Haider MD CHEMISTRY ORDERABLES Final Resu lt Performing Organization Address City/[facility]/ZIP Co de Phone Number [facility] [place] [address] [facility], [place] [address] [facility] [address] [place] [address] * ECG AND WAVEFORMS - TELEMETRY (03/10/2021 7:00 AM EDT) ECG INTERPRET Sinus Bradycardia [facility] 03/10/2021 7:00 AM EDT Narrative [facility] - 03/10/2021 9:33 AM EDT ROUTINE UPB/HH ??CO 0.17 ??QRS 0.06 ??QT 0.43 ??See Clinical Report link for waveform capture us Unknown Provider POINT OF CARE CARDIOLOGY Final Result Performing Organization Address City/[facility]/ZIP Co de Phone Number [facility] 1 [place] [phone] * (ABNORMAL) GLUCOSE METER POC (03/09/2021 9:30 PM EDT) Glucose Meter POC 323(H) 70 - 100 mg/dL 03/09/2021 9:31 PM EDT [facility] Sample Type Capillary 03/09/2021 9:31 PM EDT [facility] Patient Status Non-Critical Patient 03/09/2021 9:31 PM EDT [facility] Blood BLOOD SPECIMEN / Unknown 03/09/2021 9:30 PM EDT 03/09/2021 9:31 PM EDT us Caroline Quintanilla MD POINT OF CARE TEST ORDERABLE S Final Result Performing Organization Address City/[facility]/ZIP Co de Phone Number [facility] [address] [place] [address] * ECG AND WAVEFORMS - TELEMETRY (03/09/2021 7:00 PM EDT) ECG INTERPRET NSR [facility] 03/09/2021 7:00 PM EDT Narrative [facility] - 03/09/2021 8:17 PM EDT JN/HICUITY ROUTINE ??CO 0.13 ??QRS 0.09 ??QT 0.44 ??See Clinical Report link for waveform capture us Unknown Provider POINT OF CARE CARDIOLOGY Final Result Performing Organization Address City/[facility]/ZIP Co de Phone Number [facility] [address] [place] [address] * (ABNORMAL) GLUCOSE METER POC (03/09/2021 4:41 PM EDT) Glucose Meter POC 336(H) 70 - 100 mg/dL 03/09/2021 4:43 PM EDT [facility] Sample Type Capillary 03/09/2021 4:43 PM EDT [facility] Patient Status Non-Critical Patient 03/09/2021 4:43 PM EDT [facility] Blood BLOOD SPECIMEN / Unknown 03/09/2021 4:41 PM EDT 03/09/2021 4:43 PM EDT us Caroline Quintanilla MD POINT OF CARE TEST ORDERABLE S Final Result Performing Organization Address City/[facility]/ZIP Co de Phone Number [facility] 1 [place] [address] * (ABNORMAL) GLUCOSE METER POC (03/09/2021 2:29 PM EDT) [facility] Glucose Meter POC 203(H) 70 - 100 mg/dL 03/09/2021 2:30 PM EDT [facility] Sample Type Capillary 03/09/2021 2:30 PM EDT [facility] Patient Status Non-Critical Patient 03/09/2021 2:30 PM EDT [facility] Blood BLOOD SPECIMEN / Unknown 03/09/2021 2:29 PM EDT 03/09/2021 2:30 PM EDT Caroline Quintanilla MD POINT OF CARE TEST ORDERABLE S Final Result Performing Organization Address [facility] Co de Phone Number [facility] 1 [place] [address] * XR CHEST AP PORTABLE (03/09/2021 12:34 PM EDT) Anatomical Region Laterality Modality Chest Radiographic Hailey ging 03/09/2021 12:3 4 PM EDT Impressions 03/09/2021 12:44 PM EDT Interval removal of the right IJ line. Low lung volumes. No acute disease. Narrative 03/09/2021 12:44 PM EDT XR CHEST AP PORTABLE, ??03/09/2021 12:34 PM CLINICAL HISTORY: ??-Hypoxemia COMPARISON: Multiple priors, most recent 03/05/2021. Right IJ line has been removed. Lung volumes are diminished. There appear clear. Heart and mediastinal structures are unchanged. Procedure Note Paras Ventura MD - 03/09/2021 XR CHEST AP PORTABLE, 03/09/2021 12:34 PM CLINICAL HISTORY: -Hypoxemia COMPARISON: Multiple priors, most recent 03/05/2021. Right IJ line has been removed. Lung volumes are diminished. There appearclear. Heart and mediastinal structures are unchanged. IMPRESSION: Interval removal of the right IJ line. Low lung volumes. No acute disease. us Herbie Haider MD IMG DIAGNOSTIC IMAGING ORDERABL ES Final Result * (ABNORMAL) GLUCOSE METER POC (03/09/2021 9:54 AM EDT) Glucose Meter POC 157(H) 70 - 100 mg/dL 03/09/2021 9:55 AM EDT [facility] Sample Type Capillary 03/09/2021 9:55 AM EDT [facility] Patient Status Non-Critical Patient 03/09/2021 9:55 AM EDT [facility] Blood BLOOD SPECIMEN / Unknown 03/09/2021 9:54 AM EDT 03/09/2021 9:55 AM EDT Caroline Quintanilla MD POINT OF CARE TEST ORDERABLE S Final Result Performing Organization Address [facility]/ZIP Co de Phone Number [facility] [address] [place] [address] * PHOSPHORUS LEVEL (03/09/2021 7:42 AM EDT) Phosphorus 2.8 2.5 - 4.5 mg/dL 03/09/2021 9:22 AM EDT [facility] Blood VENOUS BLOOD / Unknown Venipuncture / Unknown 03/09/2021 7:42 AM EDT 03/09/2021 8:00 AM EDT us Herbie Haider MD CHEMISTRY ORDERABLES Final Resu lt [facility] [address] [facility], [address] [place] [phone] * MAGNESIUM LEVEL (03/09/2021 7:42 AM EDT) Magnesium 1.8 1.6 - 2.4 mg/dL 03/09/2021 9:11 AM EDT [facility] Blood VENOUS BLOOD / Unknown Venipuncture / Unknown 03/09/2021 7:42 AM EDT 03/09/2021 8:00 AM EDT us Herbie Haider MD CHEMISTRY ORDERABLES Final Resu lt [facility] [address] [facility] , [place] [address] * (ABNORMAL) BASIC METABOLIC PANEL (03/09/2021 7:42 AM EDT) Sodium 140 136 - 145 mmol/L 03/09/2021 9:11 AM EDT [facility] Potassium 3.7 3.5 - 5.0 mmol/L 03/09/2021 9:11 AM EDT [facility] Chloride 108(H) 98 - 107 mmol/L 03/09/2021 9:11 AM EDT [facility] Total CO2 17(L) 22 - 29 mmol/L 03/09/2021 9:11 AM EDT [facility] Anion Gap 15 7 - 16 mmol/L 03/09/2021 9:11 AM EDT [facility] Calcium 8.3(L) 8.8 - 10.4 mg/dL 03/09/2021 9:11 AM EDT [facility] Glucose Lvl 149(H) 82 - 100 mg/dL 03/09/2021 9:11 AM EDT [facility] BUN 22 8 - 23 mg/dL 03/09/2021 9:11 AM EDT [facility] Creatinine 1.20 0.51 - 1.30 mg/dL 03/09/2021 9:11 AM EDT [facility] GFR Afr Am 57(L) >=60 mL/min/1.7 3 m2 03/09/2021 9:11 AM EDT [facility] GFR Non Afr Am 49(L) >=60 mL/min/1.7 3 m2 03/09/2021 9:11 AM EDT [facility] Comment: This estimated GFR was calculated using CKD-EPI equation which is modified based on ethnicity for Non Americans and Americans. Both results are reported since it is not always possible to determine the patient's ethnicity. This equation should only be used for individuals 18 and older. It has not been validated for use with the elderly (>70 years), women, or in some racial or ethnic subgroups, such as Hispanics. The equation will be less accurate in people with differences in nutritional status or muscle mass. Blood VENOUS BLOOD / Unknown Venipuncture / Unknown 03/09/2021 7:42 AM EDT 03/09/2021 8:00 AM EDT Herbie Haider MD CHEMISTRY ORDERABLES Final Resu lt [facility] [address] [facility], [place] [address] [facility] [address] [place] [phone] * (ABNORMAL) CBC WITH DIFF (03/09/2021 7:42 AM EDT) WBC 7.3 3.7 - 10.3 x10(3)/mcL 03/09/2021 8:37 AM EDT [facility] RBC 3.62(L) 3.90 - 5.20 x10(6)/mcL 03/09/2021 8:37 AM EDT [facility] Hgb 11.2 11.2 - 15.7 g/dL 03/09/2021 8:37 AM EDT [facility] Hct 33.4(L) 34.0 - 45.0 % 03/09/2021 8:37 AM EDT [facility] MCV 92.3 80.0 - 100.0 fL 03/09/2021 8:37 AM EDT [facility] MCH 30.9 26.0 - 34.0 pg 03/09/2021 8:37 AM EDT [facility] MCHC 33.5 30.7 - 35.5 g/dL 03/09/2021 8:37 AM EDT [facility] RDW 12.4 <=14.9 % 03/09/2021 8:37 AM EDT [facility] Platelet 161 155 - 369 x10(3)/mcL 03/09/2021 8:37 AM EDT [facility] MPV 11.3 8.8 - 12.5 fL 03/09/2021 8:37 AM EDT [facility] Neut Percent 62.5 % 03/09/2021 8:37 AM EDT [facility] Comment:Neutrophils equals s egs plus bands Imm Gran% 0.4 % 03/09/2021 8:37 AM EDT [facility] Comment:Automated count of m etamyelocytes, myelocytes and promyelocytes. Lymph Percent 33.2 % 03/09/2021 8:37 AM EDT [facility] Fannin Percent 3.7 % 03/09/2021 8:37 AM EDT [facility] Eos Percent 0.1 % 03/09/2021 8:37 AM EDT [facility] Baso Percent 0.1 % 03/09/2021 8:37 AM EDT [facility] Neut # 4.5 1.6 - 6.1 x10(3)/[facility] 03/09/2021 8:37 AM EDT [facility] Comment:Neutrophils equals s egs plus bands IMMGRAN# 0.0 0.0 - 0.1 x10(3)/[facility] 03/09/2021 8:37 AM EDT [facility] Comment:Automated count of m etamyelocytes, myelocytes and promyelocytes. An absolute IG <0.1 is reported as 0.0. Lymph # 2.4 1.2 - 3.9 x10(3)/[facility] 03/09/2021 8:37 AM EDT [facility] Fannin # 0.3 0.3 - 0.9 x10(3)/[facility] 03/09/2021 8:37 AM EDT [facility] Eos# 0.0 0.0 - 0.5 x10(3)/[facility] 03/09/2021 8:37 AM EDT [facility] Baso # 0.0 0.0 - 0.1 x10(3)/[facility] 03/09/2021 8:37 AM EDT [facility] Blood VENOUS BLOOD / Unknown Venipuncture / Unknown 03/09/2021 7:42 AM EDT 03/09/2021 8:00 AM EDT us Herbie Haider MD HEMATOLOGY ORDERABLES Final Res ult Performing Organization Address City/[facility]/ZIP Co de Phone Number [facility] [email or web address] [address] [facility], [place] [address] * ECG AND WAVEFORMS - TELEMETRY (03/09/2021 7:00 AM EDT) ECG INTERPRET NSR [facility] 03/09/2021 7:00 AM EDT Narrative [facility] - 03/09/2021 8:08 AM EDT LD/HICUITY ROUTINE ??CO 0.12 ??QRS 0.09 ??QT 0.44 ??See Clinical Report link for waveform capture us Unknown Provider POINT OF CARE CARDIOLOGY Final Result Performing Organization Address [facility] Co de Phone Number [facility] [address] [place] [address] * (ABNORMAL) GLUCOSE METER POC (03/08/2021 9:33 PM EDT) [facility] Glucose Meter POC 149(H) 70 - 100 mg/dL 03/08/2021 9:34 PM EDT [facility] Sample Type Capillary 03/08/2021 9:34 PM EDT [facility] Patient Status Non-Critical Patient 03/08/2021 9:34 PM EDT [facility] Blood BLOOD SPECIMEN / Unknown 03/08/2021 9:33 PM EDT 03/08/2021 9:34 PM EDT us Caroline Quintanilla MD POINT OF CARE TEST ORDERABLE S Final Result Performing Organization Address [facility]/ZIP Co de Phone Number [facility] [address] [place], [place] [phone] * ECG AND WAVEFORMS - TELEMETRY (03/08/2021 7:00 PM EDT) ECG INTERPRET NSR [facility] 03/08/2021 7:00 PM EDT Narrative [facility] - 03/08/2021 7:47 PM EDT KL/HICUITY/ROUTINE ??CO 0.12 ??QRS 0.08 ??QT 0.42 ??See Clinical Report link for waveform capture us Unknown Provider POINT OF CARE CARDIOLOGY Final Result Performing Organization Address [facility]/ZIP Co de Phone Number [facility] [address] [place] [address] * (ABNORMAL) GLUCOSE METER POC (03/08/2021 6:04 PM EDT) Glucose Meter POC 182(H) 70 - 100 mg/dL 03/08/2021 6:05 PM EDT [facility] Sample Type Capillary 03/08/2021 6:05 PM EDT [facility] Patient Status Non-Critical Patient 03/08/2021 6:05 PM EDT [facility] Blood BLOOD SPECIMEN / Unknown 03/08/2021 6:04 PM EDT 03/08/2021 6:05 PM EDT us Caroline Quintanilla MD POINT OF CARE TEST ORDERABLE S Final Result Performing Organization Address [facility] Co de Phone Number [facility] [address] [place], [place] [id number] * (ABNORMAL) GLUCOSE METER POC (03/08/2021 1:54 PM EDT) Glucose Meter POC 137(H) 70 - 100 mg/dL 03/08/2021 1:55 PM EDT [facility] Sample Type Capillary 03/08/2021 1:55 PM EDT [facility] Patient Status Non-Critical Patient 03/08/2021 1:55 PM EDT [facility] Blood BLOOD SPECIMEN / Unknown 03/08/2021 1:54 PM EDT 03/08/2021 1:55 PM EDT Caroline Quintanilla MD POINT OF CARE TEST ORDERABLE S Final Result Performing Organization Address [facility]/ZIP Co de Phone Number [facility] [address] [place] [address] * (ABNORMAL) GLUCOSE METER POC (03/08/2021 10:02 AM EDT) [facility] Glucose Meter POC 155(H) 70 - 100 mg/dL 03/08/2021 10:03 AM EDT [facility] Sample Type Capillary 03/08/2021 10:03 AM EDT [facility] Patient Status Non-Critical Patient 03/08/2021 10:03 AM EDT [facility] Blood BLOOD SPECIMEN / Unknown 03/08/2021 10:02 AM EDT 03/08/2021 10:03 AM EDT us Caroline Quintanilla MD POINT OF CARE TEST ORDERABLE S Final Result Performing Organization Address [facility]/ZIP Co de Phone Number [facility] [address] [place] [address] * (ABNORMAL) C-REACTIVE PROTEIN (03/08/2021 9:26 AM EDT) [facility] CRP 66.48(H) <=5.00 mg/L 03/08/2021 10:43 AM EDT [facility] Blood VENOUS BLOOD / Unknown Venipuncture / Unknown 03/08/2021 9:26 AM EDT 03/08/2021 10:15 AM EDT us Leonardo Zepeda MD (Ronny) CHEMISTRY ORDER ISRRAEL Final Result [facility] [address] [facility], [place] [address] * (ABNORMAL) D-DIMER (03/08/2021 9:26 AM EDT) [facility] D-Dimer 631(H) <=500 ng/mL FEU 03/08/2021 10:50 AM EDT [facility] Comment:This is an automated latex enhanced immunoassay for the quantitative determination of D-Dimer that may be used, in conjunction with a clinical pretest probability assessment, to exclude venous thromboembolism in patients suspected of deep venous thrombosis (DVT) and pulmonary embolism (PE). The cutoff for exclusion of DVT and PE is 500 ng/mL Fibrinogen Equivalent Units (FEU). Elevated D-Dimer levels may be associated with PE, DVT, disseminated intravascular coagulation, recent surgery, recent bleeding, , malignancy, and inflammation. Blood VENOUS BLOOD / Unknown Venipuncture / Unknown 03/08/2021 9:26 AM EDT 03/08/2021 10:15 AM EDT Narrative [facility] - 03/08/2021 10:50 AM EDT For patients between the ages of 50 - 75, an age-adjusted D-Dimer cut-off in combination with non-high clinical probability may be considered for the exclusion of venous thromboembolism (calculation = age x 10). RAZIA Hdez, et al. [employer]. 2017;166(5):361-363 PAULA Negron, et al. [employer]. 2015;(163):701-711. Lit Mcgowan, et al. KELVIN. 2014;(11):3061-4585. Leonardo Zepeda MD (Ronny) HEMATOLOGY ORDE RACHAEL Final Result Performing Organization Address City/[facility]/ZIP Co de Phone Number [facility] [address] [place] [address] , [place] [address] * (ABNORMAL) PHOSPHORUS LEVEL (03/08/2021 9:26 AM EDT) Phosphorus 1.9(L) 2.5 - 4.5 mg/dL 03/08/2021 10:43 AM EDT [facility] Blood VENOUS BLOOD / Unknown Venipuncture / Unknown 03/08/2021 9:26 AM EDT 03/08/2021 10:15 AM EDT Leonardo Zepeda MD (Ronny) CHEMISTRY ORDER ISRRAEL Final Result Performing Organization Address City/[facility]/ZIP Co de Phone Number [facility] [address] [place] [address] , [address] [place], [place] [id number] * MAGNESIUM LEVEL (03/08/2021 9:26 AM EDT) Pathologist [facility] Magnesium 1.6 1.6 - 2.4 mg/dL 03/08/2021 10:43 AM EDT [facility] Blood VENOUS BLOOD / Unknown Venipuncture / Unknown 03/08/2021 9:26 AM EDT 03/08/2021 10:15 AM EDT us Leonardo Pena (Dmitri) Katelyn MEEKS CHEMISTRY ORDER ISRRAEL Final Result [facility], [address] , [place] [address] * (ABNORMAL) CBC WITH DIFF (03/08/2021 9:26 AM EDT) [facility] WBC 7.7 3.7 - 10.3 x10(3)/mc L 03/08/2021 10:51 AM EDT [facility] RBC 3.70(L) 3.90 - 5.20 x10(6)/mc L 03/08/2021 10:51 AM EDT [facility] Hgb 11.4 11.2 - 15.7 g/dL 03/08/2021 10:51 AM EDT [facility] Hct 33.7(L) 34.0 - 45.0 % 03/08/2021 10:51 AM EDT [facility] MCV 91.1 80.0 - 100.0 fL 03/08/2021 10:51 AM EDT [facility] MCH 30.8 26.0 - 34.0 pg 03/08/2021 10:51 AM EDT [facility] MCHC 33.8 30.7 - 35.5 g/dL 03/08/2021 10:51 AM EDT [facility] RDW 12.3 <=14.9 % 03/08/2021 10:51 AM EDT [facility] Platelet 142(L) 155 - 369 x10(3)/mc L 03/08/2021 10:51 AM EDT [facility] MPV 11.9 8.8 - 12.5 fL 03/08/2021 10:51 AM EDT [facility] Neut Percent 68.8 % 03/08/2021 10:51 AM EDT [facility] Comment:Neutrophils equals s egs plus bands Imm Gran% 0.4 % 03/08/2021 10:51 AM EDT [facility] Comment:Automated count of m etamyelocytes, myelocytes and promyelocytes. Lymph Percent 27.8 % 03/08/2021 10:51 AM EDT [facility] Fannin Percent 2.9 % 03/08/2021 10:51 AM EDT [facility] Eos Percent 0.0 % 03/08/2021 10:51 AM EDT [facility] Baso Percent 0.1 % 03/08/2021 10:51 AM EDT [facility] Neut # 5.3 1.6 - 6.1 x10(3)/ L 03/08/2021 10:51 AM EDT [facility] Comment:Neutrophils equals s egs plus bands IMMGRAN# 0.0 0.0 - 0.1 x10(3)/mc L 03/08/2021 10:51 AM EDT [facility] Comment:Automated count of m etamyelocytes, myelocytes and promyelocytes. An absolute IG <0.1 is reported as 0.0. Lymph # 2.1 1.2 - 3.9 x10(3)/ L 03/08/2021 10:51 AM EDT [facility] Fannin # 0.2(L) 0.3 - 0.9 x10(3)/mc L 03/08/2021 10:51 AM EDT [facility] Eos# 0.0 0.0 - 0.5 x10(3)/ L 03/08/2021 10:51 AM EDT [facility] Baso # 0.0 0.0 - 0.1 x10(3)/ L 03/08/2021 10:51 AM EDT [facility] RBC Morph Consistent with Red Cell Indices no units 03/08/2021 10:51 AM EDT [facility] Blood VENOUS BLOOD / Unknown Venipuncture / Unknown 03/08/2021 9:26 AM EDT 03/08/2021 10:15 AM EDT us Leonardo Pena (Dmitri) Katelyn MEEKS HEMATOLOGY FEDE CANO Final Result [facility] [address] [facility], [place] [address] * (ABNORMAL) BASIC METABOLIC PANEL (03/08/2021 9:26 AM EDT) Sodium 140 136 - 145 mmol/L 03/08/2021 10:43 AM EDT [facility] Potassium 3.8 3.5 - 5.0 mmol/L 03/08/2021 10:43 AM EDT [facility] Chloride 108(H) 98 - 107 mmol/L 03/08/2021 10:43 AM EDT [facility] Total CO2 17(L) 22 - 29 mmol/L 03/08/2021 10:43 AM EDT [facility] Anion Gap 15 7 - 16 mmol/L 03/08/2021 10:43 AM EDT [facility] Calcium 8.2(L) 8.8 - 10.4 mg/dL 03/08/2021 10:43 AM EDT [facility] Glucose Lvl 152(H) 82 - 100 mg/dL 03/08/2021 10:43 AM EDT [facility] BUN 18 8 - 23 mg/dL 03/08/2021 10:43 AM EDT [facility] Creatinine 1.24 0.51 - 1.30 mg/dL 03/08/2021 10:43 AM EDT [facility] GFR Afr Am 55(L) >=60 mL/min/1.7 3 m2 03/08/2021 10:43 AM EDT [facility] GFR Non Afr Am 47(L) >=60 mL/min/1.7 3 m2 03/08/2021 10:43 AM EDT [facility] Comment: This estimated GFR was calculated using CKD-EPI equation which is modified based on ethnicity for Non Americans and Americans. Both results are reported since it is not always possible to determine the patient's ethnicity. This equation should only be used for individuals 18 and older. It has not been validated for use with the elderly (>70 years), women, or in some racial or ethnic subgroups, such as Hispanics. The equation will be less accurate in people with differences in nutritional status or muscle mass. Blood VENOUS BLOOD / Unknown Venipuncture / Unknown 03/08/2021 9:26 AM EDT 03/08/2021 10:15 AM EDT us Leonardo Pena (Dmitri) Katelyn MEEKS CHEMISTRY ORDER ISRRAEL Final Result Performing Organization Address [facility] Co de Phone Number [facility], [address], [place] [address] [facility] [address] [place] [address] * ECG AND WAVEFORMS - TELEMETRY (03/08/2021 7:01 AM EDT) ECG INTERPRET NSR [facility] 03/08/2021 7:01 AM EDT Narrative [facility] - 03/08/2021 9:39 AM EDT SB/HICUITY ROUTINE ??CO 0.15 ??QRS 0.10 ??QT 0.40 ??See Clinical Report link for waveform capture us Unknown Provider POINT OF CARE CARDIOLOGY Final Result Performing Organization Address [facility] Co de Phone Number [facility] [address] [place], [place] [phone] * (ABNORMAL) GLUCOSE METER POC (03/07/2021 9:58 PM EDT) Glucose Meter POC 181(H) 70 - 100 mg/dL 03/07/2021 9:59 PM EDT [facility] Sample Type Capillary 03/07/2021 9:59 PM EDT [facility] Patient Status Non-Critical Patient 03/07/2021 9:59 PM EDT [facility] Blood BLOOD SPECIMEN / Unknown 03/07/2021 9:58 PM EDT 03/07/2021 9:59 PM EDT us Caroline Quintanilla MD POINT OF CARE TEST ORDERABLE S Final Result Performing Organization Address [facility] Co de Phone Number [facility] [address] [place] [address] * ECG AND WAVEFORMS - TELEMETRY (03/07/2021 7:00 PM EDT) ECG INTERPRET NSR [facility] 03/07/2021 7:00 PM EDT Narrative [facility] - 03/07/2021 9:51 PM EDT /CZ/HICUITY/ROUTINE ??CO 0.11 ??QRS 0.06 ??QT 0.35 ??See Clinical Report link for waveform capture us Unknown Provider POINT OF CARE CARDIOLOGY Final Result Performing Organization Address [facility] de Phone Number [facility] [address] [place] [address] * (ABNORMAL) GLUCOSE METER POC (03/07/2021 6:46 PM EDT) [facility] Signature Glucose Meter POC 118(H) 70 - 100 mg/dL 03/07/2021 6:47 PM EDT [facility] Sample Type Capillary 03/07/2021 6:47 PM EDT [facility] Patient Status Non-Critical Patient 03/07/2021 6:47 PM EDT [facility] Blood BLOOD SPECIMEN / Unknown 03/07/2021 6:46 PM EDT 03/07/2021 6:47 PM EDT us Caroline Quinatnilla MD POINT OF CARE TEST ORDERABLE S Final Result Performing Organization Address [facility] Co de Phone Number [facility] [address] [place], [place] [id number] * (ABNORMAL) GLUCOSE METER POC (03/07/2021 1:17 PM EDT) Glucose Meter POC 184(H) 70 - 100 mg/dL 03/07/2021 1:18 PM EDT [facility] Sample Type Capillary 03/07/2021 1:18 PM EDT [facility] Patient Status Non-Critical Patient 03/07/2021 1:18 PM EDT [facility] Blood BLOOD SPECIMEN / Unknown 03/07/2021 1:17 PM EDT 03/07/2021 1:18 PM EDT us Caroline Quintanilla MD POINT OF CARE TEST ORDERABLE S Final Result Performing Organization Address City/[facility]/[place] [address] * (ABNORMAL) GLUCOSE METER POC (03/07/2021 9:29 AM EDT) Glucose Meter POC 179(H) 70 - 100 mg/dL 03/07/2021 9:30 AM EDT [facility] Sample Type Capillary 03/07/2021 9:30 AM EDT [facility] Patient Status Non-Critical Patient 03/07/2021 9:30 AM EDT [facility] Blood BLOOD SPECIMEN / Unknown 03/07/2021 9:29 AM EDT 03/07/2021 9:30 AM EDT us Caroline Quintanilla MD POINT OF CARE TEST ORDERABLE S Final Result [address] [address] * ECG AND WAVEFORMS - TELEMETRY (03/07/2021 7:13 AM EDT) ECG INTERPRET NSR [facility] 03/07/2021 7:13 AM EDT Narrative [facility] - 03/07/2021 8:15 AM EDT MD/INÉS ROUTINE ??CO 0.15 ??QRS 0.08 ??QT 0.44 ??See Clinical Report link for waveform capture us Unknown Provider POINT OF CARE CARDIOLOGY Final Result Performing Organization Address [facility]/ZIP Co de Phone Number [facility] [address] [place] [address] * (ABNORMAL) MAGNESIUM LEVEL (03/07/2021 6:57 AM EDT) Magnesium 1.3(L) 1.6 - 2.4 mg/dL 03/07/2021 4:38 PM EDT [facility] Blood VENOUS BLOOD / Unknown Venipuncture / Unknown 03/07/2021 6:57 AM EDT 03/07/2021 7:28 AM EDT us Herbie Haider MD CHEMISTRY ORDERABLES Final Resu lt Performing Organization Address [facility] Co de Phone Number [facility] [address] [address], [place] [address] * (ABNORMAL) CBC WITH DIFF (03/07/2021 6:57 AM EDT) WBC 7.2 3.7 - 10.3 x10(3)/mcL 03/07/2021 8:00 AM EDT [facility] RBC 3.47(L) 3.90 - 5.20 x10(6)/mcL 03/07/2021 8:00 AM EDT [facility] Hgb 11.0(L) 11.2 - 15.7 g/dL 03/07/2021 8:00 AM EDT [facility] Hct 31.6(L) 34.0 - 45.0 % 03/07/2021 8:00 AM EDT [facility] MCV 91.1 80.0 - 100.0 fL 03/07/2021 8:00 AM EDT [facility] MCH 31.7 26.0 - 34.0 pg 03/07/2021 8:00 AM EDT [facility] MCHC 34.8 30.7 - 35.5 g/dL 03/07/2021 8:00 AM EDT [facility] RDW 12.2 <=14.9 % 03/07/2021 8:00 AM EDT [facility] Platelet 123(L) 155 - 369 x10(3)/[facility] 03/07/2021 8:00 AM EDT [facility] MPV 12.1 8.8 - 12.5 fL 03/07/2021 8:00 AM EDT [facility] Neut Percent 68.7 % 03/07/2021 8:00 AM EDT [facility] Comment:Neutrophils equals s egs plus bands Imm Gran% 0.4 % 03/07/2021 8:00 AM EDT [facility] Comment:Automated count of m etamyelocytes, myelocytes and promyelocytes. Lymph Percent 27.9 % 03/07/2021 8:00 AM EDT [facility] Fannin Percent 2.9 % 03/07/2021 8:00 AM EDT [facility] Eos Percent 0.0 % 03/07/2021 8:00 AM EDT [facility] Baso Percent 0.1 % 03/07/2021 8:00 AM EDT [facility] Neut # 4.9 1.6 - 6.1 x10(3)/[facility] 03/07/2021 8:00 AM EDT [facility] Comment:Neutrophils equals s egs plus bands IMMGRAN# 0.0 0.0 - 0.1 x10(3)/[facility] 03/07/2021 8:00 AM EDT [facility] Comment:Automated count of m etamyelocytes, myelocytes and promyelocytes. An absolute IG <0.1 is reported as 0.0. Lymph # 2.0 1.2 - 3.9 x10(3)/mcL 03/07/2021 8:00 AM EDT [facility] Fannin # 0.2(L) 0.3 - 0.9 x10(3)/[facility] 03/07/2021 8:00 AM EDT [facility] Eos# 0.0 0.0 - 0.5 x10(3)/[facility] 03/07/2021 8:00 AM EDT [facility] Baso # 0.0 0.0 - 0.1 x10(3)/[facility] 03/07/2021 8:00 AM EDT [facility] Blood VENOUS BLOOD / Unknown Venipuncture / Unknown 03/07/2021 6:57 AM EDT 03/07/2021 7:28 AM EDT us Leonardo Pena (Dmitri) Katelyn MEEKS HEMATOLOGY FEDE CANO Final Result [facility] [address] [facility] , [place] [address] * (ABNORMAL) BASIC METABOLIC PANEL (03/07/2021 6:57 AM EDT) Sodium 140 136 - 145 mmol/L 03/07/2021 8:25 AM EDT [facility] Potassium 3.4(L) 3.5 - 5.0 mmol/L 03/07/2021 8:25 AM EDT [facility] Chloride 107 98 - 107 mmol/L 03/07/2021 8:25 AM EDT [facility] Total CO2 16(L) 22 - 29 mmol/L 03/07/2021 8:25 AM EDT [facility] Anion Gap 17(H) 7 - 16 mmol/L 03/07/2021 8:25 AM EDT [facility] Calcium 7.9(L) 8.8 - 10.4 mg/dL 03/07/2021 8:25 AM EDT [facility] Glucose Lvl 178(H) 82 - 100 mg/dL 03/07/2021 8:25 AM EDT [facility] BUN 15 8 - 23 mg/dL 03/07/2021 8:25 AM EDT [facility] Creatinine 1.19 0.51 - 1.30 mg/dL 03/07/2021 8:25 AM EDT [facility] GFR Afr Am 57(L) >=60 mL/min/1.7 3 m2 03/07/2021 8:25 AM EDT [facility] GFR Non Afr Am 50(L) >=60 mL/min/1.7 3 m2 03/07/2021 8:25 AM EDT [facility] Comment: This estimated GFR was calculated using CKD-EPI equation which is modified based on ethnicity for Non Americans and Americans. Both results are reported since it is not always possible to determine the patient's ethnicity. This equation should only be used for individuals 18 and older. It has not been validated for use with the elderly (>70 years), women, or in some racial or ethnic subgroups, such as Hispanics. The equation will be less accurate in people with differences in nutritional status or muscle mass. Blood VENOUS BLOOD / Unknown Venipuncture / Unknown 03/07/2021 6:57 AM EDT 03/07/2021 7:28 AM EDT Leonardo Zepeda MD (Ronny) CHEMISTRY ORDER ISRRAEL Final Result Performing Organization Address [facility] Co de Phone Number [facility] [address] [place] [address] , [place] [address] [facility] [address] [place] [address] * SHIGA TOXIN (03/06/2021 11:36 PM EDT) Shiga Toxin Shiga toxins (produced by E. coli) not detected. Shiga toxins (produced by E. coli) not detected. 03/07/2021 10:17 AM EDT [facility] Stool SPECIMEN FROM RECTUM / Unknown 03/06/2021 11:36 PM EDT 03/06/2021 11:39 PM EDT Evelia Richardson APRN MICROBIOLOGY - GENERAL OR DERABLES Final Result Performing Organization Address [facility] Co de Phone Number [email or web address] [address] , [address] [place] [phone] * STOOL CULTURE (NO STAIN) (03/06/2021 11:36 PM EDT) Culture No growth of enteric pathogens, including Salmonella, Shigella, Campylobacter, Vibrio, Yersinia, Aeromonas, Plesiomonas, or E. coli O157. 03/09/2021 12:51 PM EDT [facility] Stool SPECIMEN FROM RECTUM / Unknown 03/06/2021 11:36 PM EDT 03/07/2021 12:40 AM EDT us Evelia Richardson APRN MICROBIOLOGY - GENERAL OR DERABLES Final Result Performing Organization Address [facility] Co de Phone Number [facility] , [address] [place] [phone] * OVA AND PARASITE BASIC (03/06/2021 11:36 PM EDT) Giardia Lamblia Antigen Not Detected Not detected 03/07/2021 10:18 AM EDT [facility] Cryptosporidium Exam Not Detected Not Detected 03/07/2021 10:18 AM EDT [facility] Stool SPECIMEN FROM RECTUM / Unknown 03/06/2021 11:36 PM EDT 03/06/2021 11:39 PM EDT Evelia Richardson APRN MICROBIOLOGY - GENERAL OR DERABLES Final Result Performing Organization Address [facility] de Phone Number [facility] , [address] [place] [phone] * (ABNORMAL) FECAL WHITE BLOOD CELLS (03/06/2021 11:36 PM EDT) Pathologist [facility] Fecal WBCs Positive(A ) Negative 03/07/2021 4:46 AM EDT [facility] Stool COLON STRUCTURE / Unknown 03/06/2021 11:36 PM EDT 03/06/2021 11:39 PM EDT Narrative [facility] - 03/07/2021 4:46 AM EDT POSITIVE for elevated levels of lactoferrin from white blood cells. us Evelia Richardson CHIEF MECHANICAL ENGINEER MICROBIOLOGY - GENERAL OR DERABLES Final Result Performing Organization Address [facility]/ZIP Co de Phone Number [facility] [address] [place] [phone] * C DIFF TOXIN DNA (03/06/2021 11:36 PM EDT) Pathologist [facility] C Diff Toxin DNA Negative Negative 03/07/2021 5:00 AM EDT [facility] Stool SPECIMEN FROM RECTUM / Unknown 03/06/2021 11:36 PM EDT 03/06/2021 11:39 PM EDT Narrative [facility] - 03/07/2021 5:00 AM EDT Toxin producing C. difficile target DNA sequences are not detected. This qualitative assay is intended for the detection of Clostridium difficile toxin B gene sequences and for presumptive identification of 027/NAP1/BI strains of toxigenic Clostridium difficile from unformed (liquid or soft) stool specimens in patients suspected of having Clostridium difficile infection (CDI). This assay utilizes real time PCR on the [employer] Inf[employer], and its performance has been verified by the [facility]. A negative result does not rule out the presence of the Clostridium difficile in concentrations below the limit of detection for the assay. Nimisha Little APRN MICROBIOLOGY - GENERAL ORD ERABLES Final Result [facility], [place] [address] * GLUCOSE METER POC (03/06/2021 8:00 PM EDT) [facility] Glucose Meter POC 98 70 - 100 mg/dL 03/06/2021 8:01 PM EDT [facility] Sample Type Capillary 03/06/2021 8:01 PM EDT [facility] Patient Status Non-Critical Patient 03/06/2021 8:01 PM EDT [facility] Blood BLOOD SPECIMEN / Unknown 03/06/2021 8:00 PM EDT 03/06/2021 8:01 PM EDT Caroline Quintanilla MD POINT OF CARE TEST ORDERABLE S Final Result [facility] [address] [place] [id number] * ECG AND WAVEFORMS - TELEMETRY (03/06/2021 7:00 PM EDT) ECG INTERPRET NSR [facility] 03/06/2021 7:00 PM EDT Narrative [facility] - 03/06/2021 7:51 PM EDT ROUTINE HICUITY/ JT, SEND ??CO 0.16 ??QRS 0.06 ??QT 0.41 us Unknown Provider POINT OF CARE CARDIOLOGY Final Result Performing Organization Address [facility]/ZIP Co de Phone Number [facility] [address] [place] [address] * ECG AND WAVEFORMS - TELEMETRY (03/06/2021 6:04 PM EDT) ECG INTERPRET NSR [facility] 03/06/2021 6:04 PM EDT Narrative [facility] - 03/06/2021 6:13 PM EDT VM/HICUITY/ADMIT ??CO 0.14 ??QRS 0.11 ??QT 0.44 ??See Clinical Report link for waveform capture us Unknown Provider POINT OF CARE CARDIOLOGY Final Result Performing Organization Address [facility] Co de Phone Number [facility] [address] [place] [address] * (ABNORMAL) GLUCOSE METER POC (03/06/2021 11:43 AM EDT) [facility] Glucose Meter POC 136(H) 70 - 100 mg/dL 03/06/2021 11:44 AM EDT [facility] Sample Type Capillary 03/06/2021 11:44 AM EDT [facility] Patient Status Non-Critical Patient 03/06/2021 11:44 AM EDT [facility] Blood BLOOD SPECIMEN / Unknown 03/06/2021 11:43 AM EDT 03/06/2021 11:44 AM EDT us Caroline Quintanilla MD POINT OF CARE TEST ORDERABLE S Final Result Performing Organization Address City/[facility]/ZIP Co de Phone Number [facility] [address] [place] [phone] * (ABNORMAL) MICROALBUMIN/CREATININE RATIO URINE (03/06/2021 9:35 AM EDT) Pathologist [facility] Urine Microalb 91.0 mg/L 03/06/2021 3:54 PM EDT [facility] [place] Urine Creatinine 80.1 mg/dL 03/06/2021 3:54 PM EDT [facility] [place] Ur Microalb/Creat 114(H) 0 - 30 mg/g 03/06/2021 3:54 PM EDT [facility] [place] Urine URINE SPECIMEN COLLECTION / Unknown 03/06/2021 9:35 AM EDT 03/06/2021 9:47 AM EDT us Leonardo Zepeda MD (Ronny) URINE ORDERABLE S Final Result Performing Organization Address [facility] Co de Phone Number [facility] [email or web address] [address] [place] [address] , [place] [address] * (ABNORMAL) C-REACTIVE PROTEIN (03/06/2021 9:27 AM EDT) [facility] CRP 46.84(H) <=5.00 mg/L 03/06/2021 11:06 AM EDT [facility] [place] Blood VENOUS BLOOD / Unknown Venipuncture / Unknown 03/06/2021 9:27 AM EDT 03/06/2021 9:34 AM EDT us Leonardo Zepeda MD (Ronny) CHEMISTRY ORDER ISRRAEL Final Result Performing Organization Address City/[facility]/ZIP Co de Phone Number [facility] [employer] [address] , [place] [address] * (ABNORMAL) D-DIMER (03/06/2021 9:27 AM EDT) [facility] D-Dimer 669(H) <=500 ng/mL FEU 03/06/2021 9:54 AM EDT [facility] Comment:This is an automated latex enhanced immunoassay for the quantitative determination of D-Dimer that may be used, in conjunction with a clinical pretest probability assessment, to exclude venous thromboembolism in patients suspected of deep venous thrombosis (DVT) and pulmonary embolism (PE). The cutoff for exclusion of DVT and PE is 500 ng/mL Fibrinogen Equivalent Units (FEU). Elevated D-Dimer levels may be associated with PE, DVT, disseminated intravascular coagulation, recent surgery, recent bleeding, , malignancy, and inflammation. Blood VENOUS BLOOD / Unknown Venipuncture / Unknown 03/06/2021 9:27 AM EDT 03/06/2021 9:34 AM EDT Narrative [facility] [email or web address] - 03/06/2021 9:54 AM EDT For patients between the ages of 50 - 75, an age-adjusted D-Dimer cut-off in combination with non-high clinical probability may be considered for the exclusion of venous thromboembolism (calculation = age x 10). RAZIA Hdez, et al. [employer]. 2017;166(5):361-363 PAULA Negron, et al. [employer]. 2015;(163):[phone]. Lit Mcgowan, et al. KELVIN. 2014;(11):[phone]. us Leonardo Zepeda MD (Ronny) HEMATOLOGY FEDE CANO Final Result [facility] [address] [place] [address] , [place] [address] * (ABNORMAL) CREATINE KINASE (03/06/2021 9:27 AM EDT) CK 281(H) 26 - 192 U/L 03/06/2021 11:06 AM EDT [facility] Blood VENOUS BLOOD / Unknown Venipuncture / Unknown 03/06/2021 9:27 AM EDT 03/06/2021 9:34 AM EDT Leonardo Zepeda MD (Ronny) CHEMISTRY ORDER ISRRAEL Final Result [facility] [address] [facility] , [place] [address] * (ABNORMAL) CBC WITH DIFF (03/06/2021 9:27 AM EDT) [facility] WBC 7.3 3.7 - 10.3 x10(3)/mcL 03/06/2021 9:37 AM EDT [facility] RBC 3.45(L) 3.90 - 5.20 x10(6)/mcL 03/06/2021 9:37 AM EDT [facility] Hgb 11.2 11.2 - 15.7 g/dL 03/06/2021 9:37 AM EDT [facility] Hct 32.0(L) 34.0 - 45.0 % 03/06/2021 9:37 AM EDT [facility] MCV 92.8 80.0 - 100.0 fL 03/06/2021 9:37 AM EDT [facility] MCH 32.5 26.0 - 34.0 pg 03/06/2021 9:37 AM EDT [facility] MCHC 35.0 30.7 - 35.5 g/dL 03/06/2021 9:37 AM EDT [facility] RDW 12.6 <=14.9 % 03/06/2021 9:37 AM EDT [facility] Platelet 122(L) 155 - 369 x10(3)/mcL 03/06/2021 9:37 AM EDT [facility] MPV 10.6 8.8 - 12.5 fL 03/06/2021 9:37 AM EDT [facility] Neut Percent 72.8 % 03/06/2021 9:37 AM EDT [facility] Comment:Neutrophils equals s egs plus bands Imm Gran% 0.4 % 03/06/2021 9:37 AM EDT [facility] Comment:Automated count of m etamyelocytes, myelocytes and promyelocytes. Lymph Percent 23.2 % 03/06/2021 9:37 AM EDT [facility] [place] Percent 3.5 % 03/06/2021 9:37 AM EDT [facility] Eos Percent 0.0 % 03/06/2021 9:37 AM EDT [facility] Baso Percent 0.1 % 03/06/2021 9:37 AM EDT [facility] Neut # 5.3 1.6 - 6.1 x10(3)/[facility] 03/06/2021 9:37 AM EDT [facility] Comment:Neutrophils equals s egs plus bands IMMGRAN# 0.0 0.0 - 0.1 x10(3)/[facility] 03/06/2021 9:37 AM EDT [facility] Comment:Automated count of m etamyelocytes, myelocytes and promyelocytes. An absolute IG <0.1 is reported as 0.0. Lymph # 1.7 1.2 - 3.9 x10(3)/[facility] 03/06/2021 9:37 AM EDT [facility] [place]annin # 0.3 0.3 - 0.9 x10(3)/[facility] 03/06/2021 9:37 AM EDT [facility] Eos# 0.0 0.0 - 0.5 x10(3)/[facility] 03/06/2021 9:37 AM EDT [facility] Baso # 0.0 0.0 - 0.1 x10(3)/[facility] 03/06/2021 9:37 AM EDT [facility] Blood VENOUS BLOOD / Unknown Venipuncture / Unknown 03/06/2021 9:27 AM EDT 03/06/2021 9:34 AM EDT us Leonardo Pena (Dmitri) Katelyn MEEKS HEMATOLOGY FEDE CANO Final Result [facility] [address] [facility] , [address] [place] [id number] * (ABNORMAL) BASIC METABOLIC PANEL (03/06/2021 9:27 AM EDT) Pathologist [facility] Sodium 140 136 - 145 mmol/L 03/06/2021 11:06 AM EDT [facility] Potassium 3.7 3.5 - 5.0 mmol/L 03/06/2021 11:06 AM EDT [facility] Chloride 111(H) 98 - 107 mmol/L 03/06/2021 11:06 AM EDT [facility] Total CO2 15(L) 22 - 29 mmol/L 03/06/2021 11:06 AM EDT [facility] Anion Gap 14 7 - 16 mmol/L 03/06/2021 11:06 AM EDT [facility] Calcium 7.7(L) 8.8 - 10.4 mg/dL 03/06/2021 11:06 AM EDT [facility] Glucose Lvl 155(H) 82 - 100 mg/dL 03/06/2021 11:06 AM EDT [facility] BUN 21 8 - 23 mg/dL 03/06/2021 11:06 AM EDT [facility] Creatinine 1.41(H) 0.51 - 1.30 mg/dL 03/06/2021 11:06 AM EDT [facility] GFR Afr Am 47(L) >=60 mL/min/1.7 3 m2 03/06/2021 11:06 AM EDT [facility] GFR Non Afr Am 41(L) >=60 mL/min/1.7 3 m2 03/06/2021 11:06 AM T [facility] Comment: This estimated GFR was calculated using CKD-EPI equation which is modified based on ethnicity for Non Americans and Americans. Both results are reported since it is not always possible to determine the patient's ethnicity. This equation should only be used for individuals 18 and older. It has not been validated for use with the elderly (>70 years), women, or in some racial or ethnic subgroups, such as Hispanics. The equation will be less accurate in people with differences in nutritional status or muscle mass. Blood VENOUS BLOOD / Unknown Venipuncture / Unknown 03/06/2021 9:27 AM EDT 03/06/2021 9:34 AM EDT us Leonardo Zepeda MD (Ronny) CHEMISTRY ORDER ISRRAEL Final Result [facility] [address] [facility], [place] [address] [facility] [address] [place] [address] * (ABNORMAL) GLUCOSE METER POC (03/06/2021 8:55 AM EDT) [facility] Glucose Meter POC 141(H) 70 - 100 mg/dL 03/06/2021 9:16 AM EDT [facility] Sample Type Capillary 03/06/2021 9:16 AM EDT [facility] Patient Status Non-Critical Patient 03/06/2021 9:16 AM EDT [facility] Blood BLOOD SPECIMEN / Unknown 03/06/2021 8:55 AM EDT 03/06/2021 9:16 AM EDT us Caroline Quintanilla MD POINT OF CARE TEST ORDERABLE S Final Result [address] [address] * US RENAL AND BLADDER (03/05/2021 11:24 PM EDT) Anatomical Region Laterality Modality Abdomen, Pelvis Ultrasound 03/05/2021 11:2 4 PM EDT Impressions 03/06/2021 1:43 AM EDT 1. No acute findings or abnormalities to explain the patient's symptoms Note: Radiology results need to be interpreted within a comprehensive clinical context. ??If you have questions about the radiology report, please contact the office of the ordering clinician. Narrative 03/06/2021 1:43 AM EDT CLINICAL HISTORY: -jie. COMPARISON: 12/30/2016. TECHNIQUE: US RENAL AND BLADDER on 03/05/2021 11:24 PM. FINDINGS: The kidneys were sonographically normal. The right kidney measured 8.2 x 6.2 x 4.5 cm while the left kidney measured 7.5 x 4.6 x 4.3 cm. There was no shadowing calculus, perinephric fluid collection, or hydronephrosis. The urinary bladder was decompressed by a Garza catheter. Procedure Note Linwood Carter MD - 03/06/2021 CLINICAL HISTORY: -jie. COMPARISON: 12/30/2016. TECHNIQUE: US RENAL AND BLADDER on 03/05/2021 11:24 PM. FINDINGS: The kidneys were sonographically normal. The right kidneymeasured 8.2 x 6.2 x 4.5 cm while the left kidney measured 7.5 x 4.6 x 4.3 cm. Therewas no shadowing calculus, perinephric fluid collection, or hydronephrosis. The urinary bladder was decompressed by a Garza catheter. IMPRESSION: 1. No acute findings or abnormalities to explain the patient's symptoms Note: Radiology results need to be interpreted within a comprehensiveclinical context. If you have questions about the radiology report, please contactthe office of the ordering clinician. Leonardo Zepeda MD (Ronny) IMG US ORDERABL ES Final Result * (ABNORMAL) HEMOGLOBIN A1C (03/05/2021 10:01 PM EDT) Hgb A1C 6.8(H) 4.2 - 5.6 % 03/05/2021 10:31 PM EDT [facility] Est. Avg Glucose 148 mg/dL 03/05/2021 10:31 PM EDT [facility] Blood VENOUS BLOOD / Unknown Venipuncture / Unknown 03/05/2021 10:01 PM EDT 03/05/2021 10:10 PM EDT Narrative [facility] [email or web address] - 03/05/2021 10:31 PM EDT REFERENCE RANGE: Normal: 4.0-5.6% Pre-diabetes: 5.7-6.4% Provisional diagnosis of diabetes: >6.4% Hgb F>10% and anything which shortens red cell survival, such as hemolytic anemia, or unstable hemoglobin variants such as HbSS, HbSC, or HbCC, will lower the HbA1c value associated with a given level of glycemic control. ? Leonardo Zepeda MD (Ronny) CHEMISTRY ORDER ISRRAEL Final Result [facility] [address] [facility] , [place] [address] * (ABNORMAL) C-REACTIVE PROTEIN (03/05/2021 10:01 PM EDT) CRP 47.73(H) <=5.00 mg/L 03/05/2021 10:37 PM EDT [facility] Blood VENOUS BLOOD / Unknown Venipuncture / Unknown 03/05/2021 10:01 PM EDT 03/05/2021 10:10 PM EDT us Leonardo Zepeda MD (Ronny) CHEMISTRY ORDER ISRRAEL Final Result [facility] [address] , [place] [address] * (ABNORMAL) GLUCOSE METER POC (03/05/2021 8:35 PM EDT) Glucose Meter POC 107(H) 70 - 100 mg/dL 03/05/2021 8:36 PM EDT [facility] Sample Type Capillary 03/05/2021 8:36 PM EDT [facility] Patient Status Non-Critical Patient 03/05/2021 8:36 PM EDT [facility] Blood BLOOD SPECIMEN / Unknown 03/05/2021 8:35 PM EDT 03/05/2021 8:36 PM EDT us Caroline Quintanilla MD POINT OF CARE TEST ORDERABLE S Final Result [facility] [address] [place] [id number] * (ABNORMAL) GLUCOSE METER POC (03/05/2021 6:07 PM EDT) Glucose Meter POC 134(H) 70 - 100 mg/dL 03/06/2021 7:27 AM EDT [facility] Sample Type Capillary 03/06/2021 7:27 AM EDT [facility] Patient Status Non-Critical Patient 03/06/2021 7:27 AM EDT [facility] Blood BLOOD SPECIMEN / Unknown 03/05/2021 6:07 PM EDT 03/06/2021 7:27 AM EDT us Caroline Quintanilla MD POINT OF CARE TEST ORDERABLE S Final Result Performing Organization Address City/[facility]/ZIP Co de Phone Number [facility] [address] [place] [phone] * (ABNORMAL) D-DIMER (03/05/2021 10:45 AM EDT) D-Dimer 837(H) <=500 ng/mL FEU 03/05/2021 9:23 PM EDT [facility] Comment:This is an automated latex enhanced immunoassay for the quantitative determination of D-Dimer that may be used, in conjunction with a clinical pretest probability assessment, to exclude venous thromboembolism in patients suspected of deep venous thrombosis (DVT) and pulmonary embolism (PE). The cutoff for exclusion of DVT and PE is 500 ng/mL Fibrinogen Equivalent Units (FEU). Elevated D-Dimer levels may be associated with PE, DVT, disseminated intravascular coagulation, recent surgery, recent bleeding, , malignancy, and inflammation. Blood VENOUS BLOOD / Unknown Venipuncture / Unknown 03/05/2021 10:45 AM EDT 03/05/2021 11:01 AM EDT Narrative [facility] - 03/05/2021 9:23 PM EDT For patients between the ages of 50 - 75, an age-adjusted D-Dimer cut-off in combination with non-high clinical probability may be considered for the exclusion of venous thromboembolism (calculation = age x 10). RAZIA Hdez, et al. [employer]. 2017;166(5):361-363 PAULA Negron, et al. [employer]. 2015;(163):[phone]. Lit Mcgowan et al. KELVIN. 2014;(11):5827-7652. us Leonardo Zepeda MD (Ronny) HEMATOLOGY FEDE CANO Final Result [facility] [address] [place] [id number] documented in this encounter Visit Diagnoses Diagnosis COVID-19 virus infection- Primary Chronic diarrhea Diarrhea JIE (acute kidney injury) (HCC) Acute kidney failure, unspecified Essential hypertension Unspecified essential hypertension Diabetes mellitus (HCC) Type II or unspecified type diabetes mellitus without mention of complication, not stated as uncontrolled Hypotension Hypotension, unspecified Migraines Migraine, unspecified, without mention of intractable migraine without mention of status migrainosus Metabolic acidosis, NAG, bicarbonate losses Acidosis documented in this encounter Admitting Diagnoses Diagnosis COVID-19 documented in this encounter Administered Medications Inactive Administered Medications - up to 1 most recent administrations Medication Order MAR Action Action Date Dose Rate Site 0.9 % NaCl infusion Intravenous, at 100 mL/hr, CONTINUOUS, Starting on Fri03/05/21 at 2130, Until Fri03/06/21 at 2129 New Bag 03/06/2021 6:11 PM EDT 100 mL/hr acetaminophen (TYLENOL) tablet 650 mg 650 mg, Oral, EVERY 4 HOURS PRN, Starting on Fri03/05/21 at 2139, Until Fri03/14/21 at 1455, Pain, Maximum adult dose of acetaminophen is 4000 mg from all sources in 24 hours. Given 03/07/2021 10:21 PM EDT 650 mg albuterol (PROVENTIL HFA;VENTOLIN HFA) inhaler 2 Puff 2 Puff, Inhalation, PRN, Starting on Fri03/14/21 at 0346, Until Fri03/14/21 at 1455, Wheezing, Waste Sort Code = SP atropine injection 0.5 mg 0.5 mg, Intravenous, PRN, Starting on Fri03/05/21 at 1916, Until Fri03/14/21 at 1455, Symptomatic bradycardia, Emergency Treatment benzonatate (TESSALON) capsule 100 mg 100 mg, Oral, 3 TIMES DAILY PRN, Starting on Fri03/05/21 at 2139, Until Fri03/14/21 at 1455, Cough Given 03/10/2021 11:06 AM EDT 100 mg buPROPion (WELLBUTRIN SR) SR tablet 150 mg 150 mg, Oral, 2 TIMES DAILY, First dose on Fri03/05/21 at 2115, Until Discontinued Given 03/14/2021 8:41 AM EDT 150 mg dexamethasone (DECADRON) injection 6 mg 6 mg, Intravenous, EVERY 24 HOURS SCHEDULED (Daily), 10 doses, First dose on Fri03/09/21 at 1045, Last dose on Fri03/18/21 at 0900, Administer IV Push if patient cannot swallow dexAMETHasone tablets Given 03/14/2021 8:42 AM EDT 6 mg dexAMETHasone (DECADRON) tablet 6 mg 6 mg, Oral, EVERY 24 HOURS SCHEDULED (Daily), 10 doses, First dose on Fri03/09/21 at 1045, Last dose on Fri03/18/21 at 0900, Give with food. Given 03/13/2021 11:00 AM EDT 6 mg dextrose 50 % solution 25 mL 25 mL, Intravenous, PRN, Starting on Fri03/11/21 at 1746, Until Fri03/14/21 at 1455, Low blood sugar, If FSBS less than 70 mg/dl and patient cannot take orally, Check FSBS every 30 minutes and repeat 25 mL of D50 IV push and notify physician if FSBS less than 70 mg/dL VESICANT diazePAM (VALIUM) tablet 5 mg 5 mg, Oral, NIGHTLY PRN, Starting on Fri03/05/21 at 2135, Until Fri03/14/21 at 1455, Anxiety Given 03/05/2021 10:08 PM EDT 5 mg enoxaparin (LOVENOX) injection 30 mg 30 mg, Subcutaneous, DAILY - LMWH/Xa, First dose on Fri03/05/21 at 1930, Until Discontinued Given 03/05/2021 8:36 PM EDT 30 mg Abdominal Tissue enoxaparin (LOVENOX) injection 40 mg 40 mg, Subcutaneous, DAILY - LMWH/Xa, First dose on Fri03/09/21 at 1200, Until Discontinued Given 03/13/2021 11:01 AM EDT 40 mg Abdominal Tissue gabapentin (NEURONTIN) capsule 100 mg 100 mg, Oral, 3 TIMES DAILY, First dose on Fri03/05/21 at 2115, Until Discontinued Given 03/14/2021 8:41 AM EDT 100 mg glucagon (GLUCAGEN) injection 1 mg 1 mg, Intramuscular, PRN, Starting on Fri03/11/21 at 1746, Until Fri03/14/21 at 1455, Low blood sugar, If FSBS less than 70 mg/dl, patient cannot take orally and without IV access, If patient is without IV access, give Glucagon 1 mg Intramuscularly, insert IV and call physician. Reconstitute with 1 mL of sterile water. heparin, porcine (PF) injection 5,000 Units 5,000 Units, Subcutaneous, EVERY 12 HOURS SCHEDULED (2 times per day), First dose on Fri03/06/21 at 0900, Until Discontinued, Hold Heparin for platelet count less than 100,000 Given 03/09/2021 10:11 AM EDT 5,000 Units Abdominal Tissue insulin aspart U-100 (NovoLOG) injection 1-10 Units 1-10 Units, Subcutaneous, 4 TIMES DAILY WITH MEALS, First dose on Fri03/11/21 at 1800, Until Discontinued, Medium dose algorithm: FSBS Correction NPO/Bedtime 121-149 1 units 0 units 150-199 2 units 1 units 200-250 4 units 2 units 251-300 6 units 3 units 301-350 8 units 4 units Greater than 350__10 units call MD _5 units call MD Notify physician if FSBS less than 50 or greater than 350. Do not use NPO dosing If patient receiving TPN or tube feeds. Correction insulin doses must be by at least 3 hours. Waste Sort Code = BKC Given 03/13/2021 5:42 PM EDT 10 Units Left Arm insulin aspart U-100 (NovoLOG) injection 1-5 Units 1-5 Units, Subcutaneous, 4 TIMES DAILY WITH MEALS, First dose on Fri03/05/21 at 2100, Until Discontinued, Low dose algorithm: FSBS Correction NPO/Bedtime 121-149 0 units 0 units 150-199 1 units 0 units 200-250 2 units 1 units 251-300 3 units 1 units 301-350 4 units 2 units Greater than 350___5 units call MD _3 units call MD Notify physician if FSBS less than 50 or greater than 350 Do not use NPO dosing If patient receiving TPN or tube feeds. Correction insulin doses must be by at least 3 hours. Waste Sort Code = BKC Given 03/11/2021 5:44 PM EDT 5 Units Left Arm insulin aspart U-100 (NovoLOG) injection 10 Units 10 Units, Subcutaneous, ONCE, 1 dose, On Tu03/13/21 at 1915, PO Diet: Obtain FSBS before patient begins eating. If there is clinical concern for hypoglycemia, due to poor oral intake, the nutritional (prandial) with or without the correctional insulin can be administered upon completion of meal. If less than (<) 50% of the meal is consumed, reduce nutritional (prandial) dose by 50%. Document in the MAR the reason for delay of insulin administration. , Tube Feeds: Hold nutritional (prandial) insulin until patient is at goal rate for continuous tube feeds. Administer correctional dose of insulin. Waste Sort Code = BKC Given 03/13/2021 8:07 PM EDT 10 Units Right Arm insulin aspart U-100 (NovoLOG) injection 5 Units 5 Units, Subcutaneous, 3 TIMES DAILY WITH MEALS, First dose on Fri03/11/21 at 1800, Until Discontinued, PO Diet: Obtain FSBS before patient begins eating. If there is clinical concern for hypoglycemia, due to poor oral intake, the nutritional (prandial) with or without the correctional insulin can be administered upon completion of meal. If less than (<) 50% of the meal is consumed, reduce nutritional (prandial) dose by 50%. Document in the MAR the reason for delay of insulin administration. , Tube Feeds: Hold nutritional (prandial) insulin until patient is at goal rate for continuous tube feeds. Administer correctional dose of insulin. Waste Sort Code = BKC Given 03/13/2021 5:42 PM EDT 5 Units Left Arm insulin aspart U-100 (NovoLOG) injection 5 Units 5 Units, Subcutaneous, ONCE, 1 dose, On Fri03/12/21 at 2230, Give with SSC Waste Sort Code = BKC Given 03/12/2021 10:26 PM EDT 5 Units Right Arm insulin glargine U-100 (LANTUS) injection 11 Units 11 Units (rounded from 11.385 Units = 0.15 Units/kg ? 75.9 kg), Subcutaneous, EVERY MORNING (INSULIN), First dose on Fri03/10/21 at 1030, Until Discontinued, A blood sugar is not required prior to administering the Lantus dose. Assess the trend of blood sugars within the last 24 hours. If 2 out of 3 blood sugars are less than (<) 120, contact pharmacy to decrease the total Lantus dose by 20%. Waste Sort Code = BKC Given 03/11/2021 6:20 AM EDT 11 Units Right Arm insulin glargine U-100 (LANTUS) injection 16 Units 16 Units, Subcutaneous, EVERY MORNING (INSULIN), First dose (after last modification) on Fri03/12/21 at 0700, Until Discontinued, A blood sugar is not required prior to administering the Lantus dose. Assess the trend of blood sugars within the last 24 hours. If 2 out of 3 blood sugars are less than (<) 120, contact pharmacy to decrease the total Lantus dose by 20%. Waste Sort Code = BKC Given 03/14/2021 6:21 AM EDT 16 Units Left Arm loperamide (IMODIUM) capsule 2 mg 2 mg, Oral, 4 TIMES DAILY PRN, Starting on Fri03/07/21 at 1518, Until Fri03/14/21 at 1455, Diarrhea, After each loose stool - Max 16 mg (8 caps) per 24 hours. If administering via enteral tube, empty contents of the capsules into 30 ml of water. methylcellulose (CITRUCEL) tablet 500 mg 500 mg, Oral, 2 TIMES DAILY, First dose on Fri03/06/21 at 1430, Until Discontinued Given 03/06/2021 3:43 PM EDT 500 mg metoprolol (LOPRESSOR) tablet 25 mg 25 mg, Oral, 2 TIMES DAILY, First dose on Fri03/06/21 at 2100, Until Discontinued, Preferably taken with or immediately following meals. Take consistently with relation to food. Given 03/11/2021 9:23 AM EDT 25 mg miconazole (MICATIN) 2 % powder Topical, PRN, Starting on Fri03/06/21 at 1757, Until Fri03/14/21 at 1455, Wound Care, Application site: dalila area/folds miconazole (MICATIN) 2 % powder Topical, EVERY 12 HOURS SCHEDULED (2 times per day), 84 doses, First dose on Fri03/06/21 at 2100, Last dose on Fri04/17/21 at 0900, Application site: dalila area/folds Given 03/14/2021 8:42 AM EDT morphine injection 1 mg 1 mg, Intravenous, EVERY 4 HOURS PRN, Starting on Fri03/05/21 at 2139, Until Fri03/14/21 at 1455, Breakthrough Pain Given 03/05/2021 10:09 PM EDT 1 mg pantoprazole (PROTONIX) 40 mg in sodium chloride 10 mL injection 40 mg, Intravenous, DAILY, First dose on Fri03/06/21 at 0900, Until Discontinued, Administer IV Push if patient cannot swallow pantoprazole tablets pantoprazole (PROTONIX) tablet 40 mg 40 mg, Oral, DAILY, First dose on Fri03/06/21 at 0900, Until Discontinued, Do not crush or chew Given 03/14/2021 8:41 AM EDT 40 mg potassium chloride (KLOR-CON) tablet 40 mEq 40 mEq, Oral, ONCE, 1 dose, On Fri03/07/21 at 1515 Given 03/07/2021 3:52 PM EDT 40 mEq potassium chloride (KLOR-CON) tablet 40 mEq 40 mEq, Oral, 2 TIMES DAILY WITH MEALS, 3 doses, First dose on Fri03/13/21 at 1800, Last dose on Fri03/14/21 at 1800 Given 03/14/2021 8:41 AM EDT 40 mEq potassium phosphate 15 mmol in dextrose 5% 250 mL infusion 15 mmol, Intravenous, ONCE, 1 dose, On Janae 03/08/21 at 1100, Administer over 6 Hours Rate/Dose Verify 03/08/2021 5:09 PM EDT 41.7 mL/hr promethazine (PHENERGAN) 12.5 mg in sodium chloride 10 mL injection 12.5 mg, Intravenous, EVERY 4 HOURS PRN, Starting on Fri03/05/21 at 2111, Until Fri03/14/21 at 1455, Nausea, If administering IV, dilute with 10ml of sodium chloride 0.9% and administer through a running IV VESICANT Given 03/10/2021 4:12 AM EDT 12.5 mg promethazine (PHENERGAN) injection 12.5 mg 12.5 mg, Intramuscular, EVERY 4 HOURS PRN, Starting on Fri03/05/21 at 2111, Until Fri03/14/21 at 1455, Nausea, If administering IV, dilute with 10ml of sodium chloride 0.9% and administer through a running IV VESICANT promethazine (PHENERGAN) tablet 25 mg 25 mg, Oral, EVERY 6 HOURS PRN, Starting on Fri03/10/21 at 0946, Until Fri03/14/21 at 1455, Nausea, Do not give with IV or IM formulations. Given 03/13/2021 11:42 PM EDT 25 mg remdesivir (VEKLURY) 200 mg in sodium chloride 0.9 % 250 mL IVPB 200 mg, Intravenous, *EVERY 24 HOURS, 1 dose, First dose on Fri03/09/21 at 1045, Administer over 30 Minutes, After administration is complete, flush the IV line with at least 30 mL of 0.9% normal Saline, Reason for Therapy: Infection Documented, Indication: Upper Respiratory IV Started 03/09/2021 2:58 PM EDT 200 mg 500 mL/hr Saccharomyces boulardii (FLORASTOR) capsule 250 mg 250 mg, Oral, 2 TIMES DAILY, First dose on Fri03/06/21 at 1430, Until Discontinued Given 03/14/2021 8:41 AM EDT 250 mg Sodium Bicarbonate tablet 650 mg 650 mg, Oral, 2 TIMES DAILY, First dose on Fri03/09/21 at 1000, Until Discontinued Given 03/14/2021 8:41 AM EDT 650 mg sodium chloride 0.9% IV line flush 20-50 mL 20-50 mL, Intravenous, at 150-600 mL/hr, PRN, Starting on Fri03/05/21 at 2029, Until Fri03/14/21 at 1455, Line Care, Flush with a minimum of 20 mL after IVPB to insure complete administration of the dose. May use the saline infusion to back flush IVPB tubing as needed. Rate/Dose Change 03/09/2021 3:47 PM EDT 10 mL/hr sodium chloride 0.9% syringe 10 mL 10 mL, Intravenous, EVERY 8 HOURS SCHEDULED (3 times per day), First dose on Fri03/05/21 at 2200, Until Discontinued, Saline locked lumens on central lines should be checked for blood return and flushed every 8 hours. Lumens with running IVF/drips should be checked for blood return and flushed whenever tubing is changed, a minimum of every 4 days. Given 03/14/2021 6:20 AM EDT 10 mL sodium chloride 0.9% syringe Intravenous, PRN, Starting on Fri03/05/21 at 2029, Until Fri03/14/21 at 1455, Line Care, Flush with 5-10 mL saline pre/post IVP, 10 mL prior to IVPB or blood product administration, and 20 mL post blood draws for CENTRAL lines. Given 03/14/2021 8:41 AM EDT 10 mL sterile water injection 1 mL 1 mL, Injection, PRN, Starting on Fri03/11/21 at 1746, Until Fri03/14/21 at 1455, Use for drug dilution, Use to dilute and administer glucagon injection documented in this encounter Discontinued Medications Medication Sig Discontinue Reason Start Date End Da te acetaminophen 325 mg Oral Tab Take by mouth every 4 hours as needed for Pain. Stop Taking at Discharge 03/14/2021 lisinopriL (PRINIVIL;ZESTRIL) 2.5 mg Oral Tablet Take by mouth daily. Stop Taking at Discharge 03/14/2021 spironolactone (ALDACTONE) 50 mg Oral Tablet Take 50 mg by mouth daily. Stop Taking at Discharge 03/14/2021 documented as of this encounter Active and Recently Administered Medications Times are shown in EDT. Scheduled Medication Order 03/12/2021 03/13/2021 03/14/2021 buPROPion (WELLBUTRIN SR) SR tablet 150 mg 150 mg, Oral, 2 TIMES DAILY, First dose on Fri03/05/21 at 2115, Until Discontinued 40 (Given - Provider: Kim Elliott RN)2057 (Given - Provider: Adriana Trejo RN) 1100 (Given - Provider: Tamar Coley RN)2017 (Given - Provider: Adriana Trejo RN) 0841 (Given - Provider: Catina Hernandez, RN) dexamethasone (DECADRON) injection 6 mg(Linked Group 1) 6 mg, Intravenous, EVERY 24 HOURS SCHEDULED (Daily), 10 doses, First dose on Fri03/09/21 at 1045, Last dose on Fri03/18/21 at 0900, Administer IV Push if patient cannot swallow dexAMETHasone tablets 0940 (See Alternative - Provider: Kim Elliott RN) 1100 (See Alternative - Provider: Tamar Coley, JOVANNY) 0842 (Given - Provider: Catina Hernandez RN) dexAMETHasone (DECADRON) tablet 6 mg(Linked Group 1) 6 mg, Oral, EVERY 24 HOURS SCHEDULED (Daily), 10 doses, First dose on Fri03/09/21 at 1045, Last dose on Fri03/18/21 at 0900, Give with food. 0940 (Given - Provider: Kim Elliott RN) 1100 (Given - Provider: Tamar Coley, JOVANNY) 0842 (See Alternative - Provider: Catina Hernandez RN) enoxaparin (LOVENOX) injection 40 mg 40 mg, Subcutaneous, DAILY - LMWH/Xa, First dose on Fri03/09/21 at 1200, Until Discontinued 1252 (Given - Provider: Kim Elliott RN - Comment: plt 161 on 03/09) 1101 (Given - Provider: Tamar Coley RN) gabapentin (NEURONTIN) capsule 100 mg 100 mg, Oral, 3 TIMES DAILY, First dose on Fri03/05/21 at 2115, Until Discontinued 0940 (Given - Provider: Kim Elliott RN)1400 (Given - Provider: Kim Elliott RN)2059 (Given - Provider: Adriana Trejo, JOVANNY) 1100 (Given - Provider: Tamar Coley, JOVANNY)1532 (Given - Provider: Tamar Coley, JOVANNY)2018 (Given - Provider: Adriana Trejo, JOVANNY) 0841 (Given - Provider: Catina Hernandez, JOVANNY) insulin aspart U-100 (NovoLOG) injection 1-10 Units 1-10 Units, Subcutaneous, 4 TIMES DAILY WITH MEALS, First dose on Fri03/11/21 at 1800, Until Discontinued, Medium dose algorithm: FSBS Correction NPO/Bedtime 121-149 1 units 0 units 150-199 2 units 1 units 200-250 4 units 2 units 251-300 6 units 3 units 301-350 8 units 4 units Greater than 350__10 units call MD _5 units call MD Notify physician if FSBS less than 50 or greater than 350. Do not use NPO dosing If patient receiving TPN or tube feeds. Correction insulin doses must be by at least 3 hours. Waste Sort Code = [facility] 0957 (Given - Provider: Kim Elliott RN - Comment: pt refusing meal, slid NPO scale, verified PW)1400 (Given - Provider: Kim Elliott RN - Comment: verified 2 RN, pt had two armbands, BG 251 verified)1858 (Given - Provider: Soledad Taylor, JOVANNY)2225 (Given - Provider: Yisel Kruger RN - Comment: verified by LE) 0800 (Not Given - Provider: Tamar Coley RN - Reason: Patient Declined - Comment: pt states she wanted to sleep)1309 (Given - Provider: Tamar Coley RN - Comment: GM)1742 (Given - Provider: Tamar Coley RN - Comment: Lit Sheldon. Pt declined to get another fsbs check)2304 (Not Given - Provider: Adriana Trejo RN - Reason: Other - Comment: See other order) 1039 (Not Given - Provider: Catina Hernandez RN - Reason: Patient Declined) insulin aspart U-100 (NovoLOG) injection 10 Units (COMPLETED) 10 Units, Subcutaneous, ONCE, 1 dose, On Fri03/13/21 at 1915, PO Diet: Obtain FSBS before patient begins eating. If there is clinical concern for hypoglycemia, due to poor oral intake, the nutritional (prandial) with or without the correctional insulin can be administered upon completion of meal. If less than (<) 50% of the meal is consumed, reduce nutritional (prandial) dose by 50%. Document in the MAR the reason for delay of insulin administration. , Tube Feeds: Hold nutritional (prandial) insulin until patient is at goal rate for continuous tube feeds. Administer correctional dose of insulin. Waste Sort Code = [facility] 2006 (Given - Provider: Adriana Trejo, RN - Comment: BG) insulin aspart U-100 (NovoLOG) injection 5 Units 5 Units, Subcutaneous, 3 TIMES DAILY WITH MEALS, First dose on Fri03/11/21 at 1800, Until Discontinued, PO Diet: Obtain FSBS before patient begins eating. If there is clinical concern for hypoglycemia, due to poor oral intake, the nutritional (prandial) with or without the correctional insulin can be administered upon completion of meal. If less than (<) 50% of the meal is consumed, reduce nutritional (prandial) dose by 50%. Document in the MAR the reason for delay of insulin administration. , Tube Feeds: Hold nutritional (prandial) insulin until patient is at goal rate for continuous tube feeds. Administer correctional dose of insulin. Waste Sort Code = [facility] 0943 (Not Given - Provider: Kim Elliott RN - Reason: Patient Declined - Comment: pt refusing meal)1400 (Given - Provider: Kim Elliott RN - Comment: verified 2 RN, pt had two armbands, BG 251 verified)1858 (Given - Provider: Soledad Taylor RN) 0800 (Not Given - Provider: Tamar Coley RN - Reason: Order parameters not met)1309 (Given - Provider: Tamar Coley RN - Comment: GM)1742 (Given - Provider: Tamar Coley RN - Comment: Lit Sheldon. Pt declined to get another fsbs checked) 1039 (Not Given - Provider: Catina Hernandez RN - Reason: Patient Declined) insulin aspart U-100 (NovoLOG) injection 5 Units (COMPLETED) 5 Units, Subcutaneous, ONCE, 1 dose, On Fri03/12/21 at 2230, Give with SSC Waste Sort Code = [facility] 2226 (Given - Provider: Yisel Kruger RN - Comment: verified by LE) insulin glargine U-100 (LANTUS) injection 16 Units 16 Units, Subcutaneous, EVERY MORNING (INSULIN), First dose (after last modification) on Fri03/12/21 at 0700, Until Discontinued, A blood sugar is not required prior to administering the Lantus dose. Assess the trend of blood sugars within the last 24 hours. If 2 out of 3 blood sugars are less than (<) 120, contact pharmacy to decrease the total Lantus dose by 20%. Waste Sort Code = [facility] 0610 (Given - Provider: Adriana Trejo RN - Comment: BG) 0615 (Given - Provider: Adriana Trejo RN - Comment: BG) 0621 (Given - Provider: Adriana Trejo RN - Comment: BG) metoprolol (LOPRESSOR) tablet 25 mg 25 mg, Oral, 2 TIMES DAILY, First dose on Fri03/06/21 at 2100, Until Discontinued, Preferably taken with or immediately following meals. Take consistently with relation to food. 09 (Not Given - Provider: Kim Elliott RN - Reason: Patient Declined - Comment: patient states she was told by another MD to stop)2099 (Not Given - Provider: Adriana Trejo RN - Reason: Patient Declined) 09 (Not Given - Provider: Tamar Coley RN - Reason: Patient Declined)2099 (Not Given - Provider: Adirana Trejo RN - Reason: Patient Declined) 0900 (Not Given - Provider: Catina Hernandez RN - Reason: Patient Declined) miconazole (MICATIN) 2 % powder Topical, EVERY 12 HOURS SCHEDULED (2 times per day), 84 doses, First dose on Fri03/06/21 at 2100, Last dose on Fri04/17/21 at 0900, Application site: dalila area/folds 46 (Given - Provider: Kim Elliott RN)2101 (Given - Provider: Adriana Trejo RN) 110 (Given - Provider: Tamar Coley, RN)2018 (Given - Provider: Adriana Trejo RN) 0842 (Given - Provider: Catina Hernandez, JOVANNY) pantoprazole (PROTONIX) 40 mg in sodium chloride 10 mL injection(Linked Group 2) 40 mg, Intravenous, DAILY, First dose on Fri03/06/21 at 0900, Until Discontinued, Administer IV Push if patient cannot swallow pantoprazole tablets 0940 (See Alternative - Provider: Kim Elliott RN) 1100 (See Alternative - Provider: Tamar Coley RN) 0841 (See Alternative - Provider: Catina Hernandez RN) pantoprazole (PROTONIX) tablet 40 mg(Linked Group 2) 40 mg, Oral, DAILY, First dose on Fri03/06/21 at 0900, Until Discontinued, Do not crush or chew 0940 (Given - Provider: Kim Elliott RN) 1100 (Given - Provider: Tamar Coley RN) 0841 (Given - Provider: Catina Hernandez RN) potassium chloride (KLOR-CON) tablet 40 mEq 40 mEq, Oral, 2 TIMES DAILY WITH MEALS, 3 doses, First dose on Fri03/13/21 at 1800, Last dose on Fri03/14/21 at 1800 1752 (Given - Provider: Tamar Coley RN) 0841 (Given - Provider: Catina Hernandez RN) Saccharomyces boulardii (FLORASTOR) capsule 250 mg 250 mg, Oral, 2 TIMES DAILY, First dose on Fri03/06/21 at 1430, Until Discontinued 0940 (Given - Provider: Kim Elliott RN)2100 (Given - Provider: Adriana Trejo RN) 1100 (Given - Provider: Tamar Coley RN)2018 (Given - Provider: Adriana Trejo RN) 0841 (Given - Provider: Catina Hernandez RN) Sodium Bicarbonate tablet 650 mg 650 mg, Oral, 2 TIMES DAILY, First dose on Fri03/09/21 at 1000, Until Discontinued 0940 (Given - Provider: Kim Elliott RN)2100 (Given - Provider: Adriana Trejo RN) 1101 (Given - Provider: Tamar Coley RN)2017 (Given - Provider: Adriana Trejo RN) 0841 (Given - Provider: Catina Hernandez RN) sodium chloride 0.9% syringe 10 mL 10 mL, Intravenous, EVERY 8 HOURS SCHEDULED (3 times per day), First dose on Fri03/05/21 at 2200, Until Discontinued, Saline locked lumens on central lines should be checked for blood return and flushed every 8 hours. Lumens with running IVF/drips should be checked for blood return and flushed whenever tubing is changed, a minimum of every 4 days. 0609 (Given - Provider: Adriana Trejo RN)1418 (Given - Provider: Kim Elliott, RN)2100 (Given - Provider: Adriana Trejo RN) 0524 (Given - Provider: Adriana Trejo RN)1314 (Given - Provider: Tamar Coley, JOVANNY)2326 (Given - Provider: Adriana Trejo RN) 0620 (Given - Provider: Adriana Trejo RN) PRN Medication Order 03/12/2021 03/13/2021 03/14/2021 acetaminophen (TYLENOL) tablet 650 mg 650 mg, Oral, EVERY 4 HOURS PRN, Starting on Fri03/05/21 at 2139, Until Fri03/14/21 at 1455, Pain, Maximum adult dose of acetaminophen is 4000 mg from all sources in 24 hours. albuterol (PROVENTIL HFA;VENTOLIN HFA) inhaler 2 Puff 2 Puff, Inhalation, PRN, Starting on Fri03/14/21 at 0346, Until Fri03/14/21 at 1455, Wheezing, Waste Sort Code = SP atropine injection 0.5 mg 0.5 mg, Intravenous, PRN, Starting on Fri03/05/21 at 1916, Until Fri03/14/21 at 1455, Symptomatic bradycardia, Emergency Treatment benzonatate (TESSALON) capsule 100 mg 100 mg, Oral, 3 TIMES DAILY PRN, Starting on Fri03/05/21 at 2139, Until Fri03/14/21 at 1455, Cough dextrose 50 % solution 25 mL 25 mL, Intravenous, PRN, Starting on Fri03/11/21 at 1746, Until Fri03/14/21 at 1455, Low blood sugar, If FSBS less than 70 mg/dl and patient cannot take orally, Check FSBS every 30 minutes and repeat 25 mL of D50 IV push and notify physician if FSBS less than 70 mg/dL VESICANT diazePAM (VALIUM) tablet 5 mg 5 mg, Oral, NIGHTLY PRN, Starting on Fri03/05/21 at 2135, Until Fri03/14/21 at 1455, Anxiety glucagon (GLUCAGEN) injection 1 mg(Linked Group 3) 1 mg, Intramuscular, PRN, Starting on Fri03/11/21 at 1746, Until Fri03/14/21 at 1455, Low blood sugar, If FSBS less than 70 mg/dl, patient cannot take orally and without IV access, If patient is without IV access, give Glucagon 1 mg Intramuscularly, insert IV and call physician. Reconstitute with 1 mL of sterile water. loperamide (IMODIUM) capsule 2 mg 2 mg, Oral, 4 TIMES DAILY PRN, Starting on Fri03/07/21 at 1518, Until Fri03/14/21 at 1455, Diarrhea, After each loose stool - Max 16 mg (8 caps) per 24 hours. If administering via enteral tube, empty contents of the capsules into 30 ml of water. miconazole (MICATIN) 2 % powder Topical, PRN, Starting on Fri03/06/21 at 1757, Until Fri03/14/21 at 1455, Wound Care, Application site: dalila area/folds morphine injection 1 mg 1 mg, Intravenous, EVERY 4 HOURS PRN, Starting on Fri03/05/21 at 2139, Until Fri03/14/21 at 1455, Breakthrough Pain promethazine (PHENERGAN) 12.5 mg in sodium chloride 10 mL injection(Linked Group 4) 12.5 mg, Intravenous, EVERY 4 HOURS PRN, Starting on Fri03/05/21 at 2111, Until Fri03/14/21 at 1455, Nausea, If administering IV, dilute with 10ml of sodium chloride 0.9% and administer through a running IV VESICANT promethazine (PHENERGAN) injection 12.5 mg(Linked Group 4) 12.5 mg, Intramuscular, EVERY 4 HOURS PRN, Starting on Fri03/05/21 at 2111, Until Fri03/14/21 at 1455, Nausea, If administering IV, dilute with 10ml of sodium chloride 0.9% and administer through a running IV VESICANT promethazine (PHENERGAN) tablet 25 mg 25 mg, Oral, EVERY 6 HOURS PRN, Starting on Fri03/10/21 at 0946, Until Fri03/14/21 at 1455, Nausea, Do not give with IV or IM formulations. 2200 (Given - Provider: Adriana Trejo RN) 1100 (Given - Provider: Tamar Coley RN)2342 (Given - Provider: Adrinaa Trejo RN) sodium chloride 0.9% IV line flush 20-50 mL 20-50 mL, Intravenous, at 150-600 mL/hr, PRN, Starting on Fri03/05/21 at 2029, Until Fri03/14/21 at 1455, Line Care, Flush with a minimum of 20 mL after IVPB to insure complete administration of the dose. May use the saline infusion to back flush IVPB tubing as needed. sodium chloride 0.9% syringe Intravenous, PRN, Starting on Fri03/05/21 at 202, Until Fri03/14/21 at 1455, Line Care, Flush with 5-10 mL saline pre/post IVP, 10 mL prior to IVPB or blood product administration, and 20 mL post blood draws for CENTRAL lines. 0841 (Given - Provider: Catina Hernandez RN) sterile water injection 1 mL(Linked Group 3) 1 mL, Injection, PRN, Starting on Fri03/11/21 at 1746, Until Fri03/14/21 at 1455, Use for drug dilution, Use to dilute and administer glucagon injection Linked Groups Order Group 1: dexAMETHasone (DECADRON) tablet 6 mgJump to med 6 mg, Oral, EVERY 24 HOURS SCHEDULED (Daily), 10 doses, First dose on Fri03/09/21 at 1045, Last dose on Fri03/18/21 at 0900, Give with food. Or dexamethasone (DECADRON) injection 6 mgJump to med 6 mg, Intravenous, EVERY 24 HOURS SCHEDULED (Daily), 10 doses, First dose on Fri03/09/21 at 1045, Last dose on Fri03/18/21 at 0900, Administer IV Push if patient cannot swallow dexAMETHasone tablets Group 2: pantoprazole (PROTONIX) 40 mg in sodium chloride 10 mL injectionJump to med 40 mg, Intravenous, DAILY, First dose on Fri03/06/21 at 0900, Until Discontinued, Administer IV Push if patient cannot swallow pantoprazole tablets Or pantoprazole (PROTONIX) tablet 40 mgJump to med 40 mg, Oral, DAILY, First dose on Fri03/06/21 at 0900, Until Discontinued, Do not crush or chew Group 3: glucagon (GLUCAGEN) injection 1 mgJump to med 1 mg, Intramuscular, PRN, Starting on Fri03/11/21 at 1746, Until Fri03/14/21 at 1455, Low blood sugar, If FSBS less than 70 mg/dl, patient cannot take orally and without IV access, If patient is without IV access, give Glucagon 1 mg Intramuscularly, insert IV and call physician. Reconstitute with 1 mL of sterile water. And sterile water injection 1 mLJump to med 1 mL, Injection, PRN, Starting on Fri03/11/21 at 1746, Until Fri03/14/21 at 1455, Use for drug dilution, Use to dilute and administer glucagon injection Group 4: promethazine (PHENERGAN) 12.5 mg in sodium chloride 10 mL injectionJump to med 12.5 mg, Intravenous, EVERY 4 HOURS PRN, Starting on Fri03/05/21 at 2111, Until Fri03/14/21 at 1455, Nausea, If administering IV, dilute with 10ml of sodium chloride 0.9% and administer through a running IV VESICANT Or promethazine (PHENERGAN) injection 12.5 mgJump to med 12.5 mg, Intramuscular, EVERY 4 HOURS PRN, Starting on Fri03/05/21 at 2111, Until Fri03/14/21 at 1455, Nausea, If administering IV, dilute with 10ml of sodium chloride 0.9% and administer through a running IV VESICANT documented in this encounter Orders Medications Ordered That Marco ht Not Have Been Administered Count Last Ordered Date First Ordered Date albuterol (PROVENTIL HFA;TARIK TOLIN HFA) inhaler 2 Puff 2 03/14/2021 03/05/2021 insulin aspart U-100 (NovoLO G) injection 10 Units 1 03/13/2021 dextrose 50 % solution 25 mL 3 03/11/2021 03/05/2021 glucagon (GLUCAGEN) injection 1 mg 3 202003/05/2021 sterile water injection 1 mL 3 03/11/2021 03/05/2021 remdesivir (VEKLURY) 100 mg in sodium chloride 0.9 % 250 mL IVPB 1 03/09/2021 loperamide (IMODIUM) capsule 2 mg 1 021 Sodium Bicarbonate tablet 650 mg 1 03/07/20 miconazole (MICATIN) 2 % powder 1 0.9 % NaCl infusion 1 03/05/2021 atorvastatin (LIPITOR) tablet 40 mg 1 03/05 atropine injection 0.5 mg 1 03/05/2021 diazePAM (VALIUM) tablet 5 mg 1 03/05/2021 insulin aspart U-100 (NovoLO G) injection 3 Units 1 03/05/2021 insulin glargine U-100 (LANT US) injection 20 Units 1 03/05/2021 nitroGLYCERIN (NITROSTAT) SL tablet 0.4 mg 1 03/05/2021 pantoprazole (PROTONIX) 40 m g in sodium chloride 10 mL injection 1 03/05/2021 promethazine (PHENERGAN) injection 12.5 mg 1 03/05/2021 topiramate (TOPAMAX) tablet 50 mg 1 021 Nursing Count Last Ordered Date First Orde red Date MEC VTE PROPH NON-CANDIDATE 1 03/09/2021 PHARM VTE PROPH NON-CANDIDATE 1 03/09/2021 CENTRAL LINE - DISCONTINUE 1 03/06/2021 GARZA CATHETER - DISCONTINUE 1 03/06/2021 CALL ADMITING 1 03/05/2021 CHANGE DRESSING 1 03/05/2021 CHANGE TUBING 1 03/05/2021 CLABSI LINE 2 03/05/2021 CLABSI NSG 2 03/05/2021 MISCELLANEOUS NURSING CARE ORDER (SPECIFY) 1 03/05/2021 NURSING COMMUNICATION 3 03/05/2021 PREVENTION- ALTERATION OF SKIN INTEGRITY 1 03/05/2021 PUNCTURE SITE CARE 1 03/05/2021 Consult Count Last Ordered Date First Orde red Date IP CONSULT TO CARE COORDINATION 1 IP CONSULT TO GI 1 03/05/2021 IP CONSULT TO [facility]ICAL MANAGER [facility] 1 021 PT Count Last Ordered Date First Orde red Date IP CONSULT TO PHYSICAL THERAPY 1 03/07/2021 ONGOING PHYSICAL THERAPY PER PLAN OF CARE 1 03/07/2021 IV Count Last Ordered Date First Orde red Date INSERT PERIPHERAL IV 1 03/06/2021 Admission Count Last Ordered Date First Orde red Date ADMIT 1 03/05/2021 Transfer Count Last Ordered Date First Orde red Date TRANSFER PATIENT 1 03/06/2021 Discharge Count Last Ordered Date First Orde red Date DISCHARGE PATIENT 1 03/13/2021 documented in this encounter Additional Health Concerns Infection Onset Date Last Indicated Resolved Time COVID-19 03/03/2021 03/03/2021 04/02/2021 10:1 2 PM EDT R/O C-Diff 03/06/2021 03/06/2021 03/07/2021 5:00 AM EDT documented as of this encounter 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
--- OUTSIDE RECORDS SUMMARY | 2024-06-22 10:21 | XMS_ITS | Encounter Summary ---
Author Organization [facility] [place] [address] Care Team Providers Care Proposal Analyst Name Role Phone Lupillo Garcia MD Primary Care Provider [phone] Reason for Visit * Auth/Cert/Inpt Specialty Diagnoses / Procedures Referred By Artis enamorado Referred To Contact Diagnoses Chest pain Chest pain Referral ID Status Reason Start Date Expiration Date Visits Re quested Visits Authorized [id number] 1 1 Encounter Details Date Type Department Care Team (Latest Contact Info) Description 12/29/2016 9:29 PM EDT - 12/30/2016 7:03 PM EDT Hospital Encounter [facility] [address] [place] [address] Jarad Harvey MD [address] [place] [address] [address] [place] [address] Discharge Disposition: Home or Self Care Social [...] Sign Reading Time Taken Comments Blood Pressure 130/69 12/30/2016 11:07 AM EDT Pulse 65 12/30/2016 2:27 PM EDT Temperature 36.4 ??C (97.6 ??F) 12/30/2016 2:27 PM ED T Respiratory Rate 18 12/30/2016 2:27 PM EDT Oxygen Saturation 98% 12/30/2016 2:27 PM EDT Inhaled Oxygen Concentration - - Weight 79.4 kg (175 lb) 12/29/2016 9:28 PM EDT Height 165.1 cm (5' 5 ) 12/29/2016 9:28 PM EDT Body Mass Index 29.12 12/29/2016 9:28 PM EDT documented in this encounter Discharge Summaries * Jarad Harvey MD - 12/30/2016 4:[address] [facility] Discharge Summary Patient Name: Tyra Romero : 1960 Admit Date: 12/29/2016 Discharge Date: 12/30/2016 Admitting Physician: Jarad Harvey MD Discharge Physician: Sena Rodriguez APRN Reason for Hospitalization: There are no hospital problems to display for this patient. Hospital Course/Significant Findings: None Procedures Performed: Stress test negative, renal ultrasound negative Consults: Discharge Exam: See Progress Note Discharge Diagnoses: <principal problem not specified> Condition at Discharge: good Disposition: Home Discharge Medications:: Medication List CONTINUE taking these medications albuterol 90 mcg/actuation Hfaa Dose: 2 Puff Refills: 0 Commonly known as: PROVENTIL HFA;VENTOLIN HFA buPROPion 150 mg Tb12 Dose: 150 mg Refills: 0 Commonly known as: WELLBUTRIN SR estrogens (conjugated) 0.3 mg Tab Dose: 0.3 mg Refills: 0 Commonly known as: PREMARIN fenofibrate 160 mg Tab Dose: 160 mg Refills: 0 Commonly known as: LOFIBRA gabapentin 300 mg Cap Dose: 100 mg Refills: 0 Commonly known as: NEURONTIN HUMALOG SUBQ Refills: 0 insulin glargine 100 unit/mL Soln Dose: 20 Units Refills: 0 Commonly known as: LANTUS LORTAB 10-500 mg Tab Dose: 1 Tab Refills: 0 Generic drug: HYDROcodone-acetaminophen metoprolol 25 mg Tab Dose: 25 mg [...] mg Refills: 0 Commonly known as: ZANAFLEX topiramate 50 mg Tab Dose: 50 mg Refills: 0 Commonly known as: TOPAMAX STOP taking these medications oxyCODONE 5 mg Tab Commonly known as: ROXICODONE sulfamethoxazole-trimethoprim 800-160 mg Tab Commonly known as: BACTRIM DS Follow Up: Lupillo Garcia MD [address] [place] [address] In 1 day Signed: Sena Rodriguez APRN 12/30/2016 4:07 PM The patient was seen in collaboration with Sena Rodriguez APRN. I have taken a history and performed a physical examination of this patient. I have reviewed the labs and imaging studies. The assessment and plan outlined has been discussed with me. ?? Exam; stable vitals. ( See above ) Check with b/l rhonchi\ s1 s2 normal abd soft nt Ext no edema ? Thanks ?? Jarad Harvey MD Nephrology documented in this encounter Medications at Time of Discharge albuterol (PROVENTIL HFA;VENTOLIN HFA) 90 mcg/actuation inhaler Inhale 2 Puffs into the lungs every 6 hours as needed for Wheezing. buPROPion (WELLBUTRIN SR) 150 mg SR tablet Take 150 mg by mouth 2 times daily. estrogens, conjugated, (PREMARIN) 0.3 mg tablet Take 0.3 mg by mouth daily. fenofibrate (LOFIBRA) 160 mg tablet Take 160 mg by mouth daily. gabapentin (NEURONTIN) 100 mg Oral Capsule Take 100 mg by mouth 3 times daily. HYDROcodone-acet aminophen (LORTAB) 10-500 mg Take 1 Tab by mouth every 6 hours as needed. Insulin glargine (LANTUS) 100 unit/mL (3 mL) SubQ Insulin Pen Subcutaneous (Inject under the skin) 20 Units nightly. 15 units am INSULIN LISPRO (HUMALOG SUBQ) Subcutaneous (Inject under the skin). Sliding scale metoprolol (LOPRESSOR) 25 mg tablet Take 25 mg by mouth 2 times daily. omeprazole (PRILOSEC) 20 mg Take 20 mg by mouth daily. promethazine (PHENERGAN) 25 mg tablet Take 25 mg by mouth every 6 hours as needed for Nausea. SUMAtriptan (IMITREX) 100 mg tablet Take 100 mg by mouth once as needed for Migraine. tiZANidine (ZANAFLEX) 4 mg tablet Take 4 mg by mouth 3 times daily. Take 11/2 tabs as needed topiramate (TOPAMAX) 100 mg Oral Tablet Take by mouth 2 times daily. documented as of this encounter Discharge Disposition Disposition Code Departure Means Destination Home or Self Fdc documented in this encounter Progress Notes * Pastora Lew RN - 12/30/2016 4:26 PM EDT 12/30/16 1625 Discharge Planning Evaluation Actual Discharge Plan Final note: patient on discharge to home and has no ride. Pt's mother unable to drive due to a CVA, her spouse has no license and her nephew is unable to assist. CC spoke with CC esters and emulsifiers supervisor and she authorized a cab voucher- CC gave voucher to powerhouse laborer. No further needs. Follow-up Follow-up Date 01/06/17 * Jerica Vu - 12/30/2016 1:42 PM EDT 12/30/16 1300 Pastoral Care Encounter Visited With Patient Date of visit 12/30/16 Visit Type Initial Mosque Needs Prayer Spiritual Needs Denomination? Moravian Pastoral Care Issues Pastoral Care Issues Coping Well Coping Resources Prayer Pastoral Care Plan/Intervention Plan/Intervention Prayer;Active Listening Plan/Intervention Comments Rashi * Pastora Lew RN - 12/30/2016 12:29 PM EDT 12/30/16 1135 Discharge Planning Evaluation Actual Discharge Plan Initial screen complete: discussed discharge plan with patient and she plans on returning home with her spouse and a nephew can provide transport. Patient has no DME or home care and denies difficulty affording medications. Patient will follow up with Dr Garcia and utilizes [facility] in [place]. Patient denies the need for post acute services at this time. Discharge to Home with Family Follow-up Follow-up Date 01/06/17 RRS Is patient score high risk on RRS score? No documented in this encounter H&P Notes * Jarad Harvey MD - 12/29/2016 10:16 PM EDT Images from the original note were not included. [facility] Jarad Harvey MD PATIENT NAME: Tyra Romero : 1960 MEDICAL RECORD: [id number] HOSPITAL ROOM # [id number] PRIMARY PROVIDER Lupillo Garcia MD HPI: Tyra Romero is a(n)56 y.o. female admitted on 12/29/2016. She presented to the ED c/o intermittent CP x2 weeks, non-descript kidney problems, and nausea. She is admitted to r/o cardiac involvement. Interval History Tyra Romero is a 56 y.o. female who presents to the Emergency Room Patient is complaining of onagain off again chest pain for the past 2 weeks also is complaining of a migraine headache and alsocomplaining of kidney problems patient states that she was unable to follow with her primary caredoctor is that he's been on vacation she describes the pain as intermittent and mild to moderate innature and states nothing makes it better nothing makes it worse patient states that she believes that she is taking an aspirin daily she is not sure denies vomiting complains of nausea and states that she feels hot and cold sometimes but believes this is related to her hormones Check D-Dimer as she states dyspnea on exertion If negative, will check stress test Cr has been mildly elevated without evidence of proteinuria, will check renal US. Assessment & Plan Chest Pain Trop negative x2 EKG WNL Check DDimer, if D-Dimer negative, stress test. If stress test negative, ok to home and F/U with PCP. Diabetes Mellitus Type II On lantus 15u daily and SSI at home Triglycerides improved from Apr 2016, 363-->264 Continue fenofibrate Tight control of blood sugar FSBS AC&HS, SSI, Lantus BID Will check A1C Mildly elevated Cr Cr 1.5 No proteinuria noted on U/A Appears as past Cr fro the past 3 years in system has ranged from 1.4-2.0 with mildly elevated BUN Will check a renal US Past 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: Diagnosis Date ??? Asthma ??? Depression ??? Diabetes mellitus (HCC) ??? Encounter for blood transfusion ??? Headache ??? Heart murmur ??? Heartburn ??? Syncope [...] Femoral condyle; Surgeon: Alexander Whittington MD; Location: [facility]; Service: Orthopedics ??? KNEE SURGERY right knee scope No family history on file. Advil [ibuprofen]; Sharmaine [fexofenadine]; Augmentin [amoxicillin-pot clavulanate]; Axid [nizatidine]; Compazine [prochlorperazine]; Darvocet a500 [propoxyphene n-acetaminophen]; Reglan [metoclopramide]; Toradol [ketorolac]; Tramadol; and Zofran odt [ondansetron] SOCIAL HISTORY Social History Social History ??? Marital status: Spouse name: N/A ??? Number of children: N/A ??? Years of education: N/A Social History Main Topics ??? Smoking status: Never Smoker ??? Smokeless tobacco: Never Used ??? Alcohol use No ??? Drug use: No ??? Sexual activity: Not on file Other Topics Concern ??? Not on file Social History Narrative ??? No narrative on file Medications Scheduled Meds: ??? [START ON 12/30/2016] buPROPion 150 mg Oral BID ??? [START ON 12/30/2016] estropipate 0.75 mg Oral Daily ??? [START ON 12/30/2016] fenofibrate 160 mg Oral Daily ??? [START ON 12/30/2016] gabapentin 100 mg Oral TID ??? [START ON 12/30/2016] insulin aspart 0-12 Units Subcutaneous TID WM ??? [START ON 12/30/2016] insulin aspart 0-6 Units Subcutaneous Nightly ??? [START ON 12/30/2016] insulin glargine 15 Units Subcutaneous QAM (Insulin) ??? [START ON 12/30/2016] insulin glargine 20 Units Subcutaneous QPM (Insulin) ??? [START ON 12/30/2016] metoprolol 25 mg Oral BID ??? [START ON 12/30/2016] nitroGLYCERIN 1 Inch Topical 4 times per day ??? [START ON 12/30/2016] pantoprazole 40 mg Oral Daily ??? [START ON 12/30/2016] tiZANidine 4 mg Oral TID ??? [START ON 12/30/2016] topiramate 50 mg Oral BID Continuous Infusions: REVIEW OF SYSTEMS Patient denies having problems with headaches, dizziness, trouble swallowing, visual disturbances, hearing loss, cough or chest pain. Patient does not have any abdominal pain, nausea, vomiting, diarrhea, blood in the stool, difficulty with urination, weakness or numbness in the legs. No calf swelling or joint tenderness. Please refer to Interval History above for acute problems mentioned and addressed. Objective: BP 107/46 (BP Location: Right arm, Patient Position: Semi Fowlers) Pulse 63 Temp 97.5 ??F (36.4??C) (Oral) Resp 20 Ht 5' 5 (1.651 m) Wt 175 lb (79.4 kg) SpO2 100% ? No BMI 29.12 kg/m?? No intake or output data in the 24 hours ending 12/29/16 2320 Exam: General: Tyra appears alert, well developed, well nourished, in no acute distress [id number] Sclera clear, anicteric Neck supple with midline trachea, no tenderness, no JVD Respiratory clear to auscultation bilaterally, normal airflow, normal effort and symmetrical chest expansion Cardiovascular regular rate and rhythm Abdomen normal findings: bowel sounds normal and abnormal findings: hyperactive bowel sounds Musculoskeletal-NeuroPsych no focal neurological deficits, affect appropriate and alert, oriented x3 Extremities no cyanosis, clubbing or edema HEMODYNAMIC DATA BP Min: 104/60 Max: 157/82 Pulse Av.7 Min: 58 Max: 67 No intake/output data recorded. Wt Readings from Last 2 Encounters: 12/29/16 175 lb (79.4 kg) 12/29/16 178 lb (80.7 kg) Wt Reading from Admission: 12/29/2016 175 lb (79.4 kg) Lab Results Component Value Date/Time SPECGRAV 1.025 12/29/2016 06:00 PM BLOOD GAS & ACID BASE DATA SpO2 Av.4 % Min: 98 % Max: 100 % Lab Results Component Value Date/Time ANIONGAP 13 12/29/2016 05:10 PM KETONESU Negative 12/29/2016 06:00 PM RENAL & METABOLIC DATA Lab Results Component Value Date/Time GLU 165 (H) 12/29/2016 05:10 PM BUN 27 (H) 12/29/2016 05:10 PM CREATININE 1.39 (H) 12/29/2016 05:10 PM NA 138 12/29/2016 05:10 PM K 4.4 12/29/2016 05:10 PM CL 105 12/29/2016 05:10 PM CO2 20 (L) 12/29/2016 05:10 PM CALCIUM 9.3 12/29/2016 05:10 PM GFRAFRAM 47 12/29/2016 05:10 PM CBC Lab Results Component Value Date WBC 7.7 12/29/2016 HGB 13.0 12/29/2016 HCT 37.7 12/29/2016 PLT 225 12/29/2016 RBC 4.12 12/29/2016 Imaging: CXR reviewed, see results Thank you for letting me participate in your patient care. Please do not hesitate to call if any questions. documented in this encounter Miscellaneous Notes * Utilization Review Notes - Rafia Gallardo RN - 12/30/2016 3:46 PM EDT Pt adm to telemetry from the ed for chest pain, observation order noted, cardiac adm orders, stresstest, pt to return home at discharge if testing negative, home care coordinator following for any discharge needs. * Plan of Care - Marni Gonzalez RN - 12/30/2016 9:13 AM EDT Problem: Safety: Fall Risk Goal: Patient will remain free of falls and injury Outcome: Progressing Non-skid socks on, call light within reach, and bed in low position. Problem: Knowledge Deficit Related to Disease Process/Treatment Goal: Patient/family will be knowledgeable of disease process and treatment Outcome: Progressing Pt has been updated on treatment for the day documented in this encounter Plan of Treatment Not on file documented as of this encounter Procedures Procedure Name Priority Date/Time Associated Diagnosis Comments SCANNED RHYTHM STRIPS 01/02/2017 7:30 PM EDT SCANNED RHYTHM STRIPS 12/30/2016 4:33 PM EDT SCANNED RADIOLOGY REPORT 12/30/2016 4:[address] STRESS TEST LEXISCAN Routine 12/30/2016 2:05 PM EDT NM MYOCARDIAL PERFUSION SPECT STRESS AND REST JESSICA 12/30/2016 1:58 PM EDT GLUCOSE METER POC Routine 12/30/2016 12: 05 PM EDT US RENAL AND BLADDER JESSICA 12/30/2016 10:07 AM EDT HEMOGLOBIN A1C Routine 12/30/2016 9:40 AM EDT D-DIMER JESSICA 12/30/2016 7:47 AM EDT BASIC METABOLIC PANEL Routine 12/30/2016 7:47 AM EDT GLUCOSE METER POC Routine 12/30/2016 7:4 0 AM EDT GLUCOSE METER POC Routine 12/30/2016 12: 23 AM EDT TROPONIN-T Timed 12/30/2016 12:14 AM EDT LIPID SCREEN Routine 12/30/2016 12:14 AM EDT EK EKG 12 LEAD Routine 12/30/2016 12:05 AM EDT documented in this encounter Results * SCANNED RHYTHM STRIPS (01/02/2017 7:30 PM EDT) Anatomical Region Laterality Modality Other 01/02/2017 7:30 PM EDT us Unknown Unknown IMG ECG ORDERABLES Final Result * SCANNED RHYTHM STRIPS (12/30/2016 4:33 PM EDT) Anatomical Region Laterality Modality Other 12/30/2016 4:33 PM EDT us Unknown Unknown IMG ECG ORDERABLES Final Result * SCANNED RADIOLOGY REPORT (12/30/2016 4:29 PM EDT) Anatomical Region Laterality Modality Other 12/30/2016 4:29 PM EDT us Unknown Unknown IMG DIAGNOSTIC IMAGING ORDERABLE S Final Result * ST STRESS TEST LEXISCAN (12/30/2016 2:05 PM EDT) Anatomical Region Laterality Modality Cardiac Stress T esting 12/30/2016 1:31 PM EDT Impressions 12/30/2016 2:00 PM EDT ? Exercise ECG Report ?[place] ? Interpretive Statements ? Stress Test Lexiscan Reason for Exam: CHEST PAIN Ordering Diagnosis: CHEST PAIN Resting HR: 59 ?? Peak HR: 94 Resting B/P 111/76 ?? PeaK B/P 129/63 1. Lexiscan 0.4 mg was given IV push at 30 seconds into protocol. 2. Lexiscan injection was done ___with _X__without low level exercise. 3. Termination of test due to protocol completion _X__ yes ___ no. 4. Symptoms: CHEST TIGHTNESS 10/10 AT ONSET OF TEST, UNCHANGED THROUGHOUT 5. Aminophylline given _X_ no ___ yes 6. Myoview scan report pending. 7. Resting EK. Arrhythmias: 9. Conclusion: Normal Resting EKG Non ischemic pharmacologic GXT by EKG criteria Electronically Signed On 12-30-2016 14:00:01 EDT by Seb Lyle MD Narrative Procedure Note Seb Lyle MD - 12/30/2016 IMPRESSION Exercise ECG Report [facility] Interpretive Statements Stress Test Lexiscan Reason for Exam: CHEST PAIN Ordering Diagnosis: CHEST PAIN Resting HR: 59 Peak HR: 94 Resting B/P 111/76 PeaK B/P 129/63 1. Lexiscan 0.4 mg was given IV push at 30 seconds into protocol. 2. Lexiscan injection was done ___with _X__without low level exercise. 3. Termination of test due to protocol completion _X__ yes ___ no. 4. Symptoms: CHEST TIGHTNESS 10/10 AT ONSET OF TEST, UNCHANGEDTHROUGHOUT 5. Aminophylline given _X_ no ___ yes 6. Myoview scan report pending. 7. Resting EK. Arrhythmias: 9. Conclusion: Normal Resting EKG Non ischemic pharmacologic GXT by EKG criteria Electronically Signed On 12-30-2016 14:00:01 EDT by Seb Lyle MD Sena Rodriguez APRN IMG STRESS ORDERABLES Final Result * NM MYOCARDIAL PERFUSION SPECT STRESS AND REST (12/30/2016 1:58 PM EDT) Anatomical Region Laterality Modality Nuclear Medicine 12/30/2016 10:1 3 AM EDT Impressions 12/30/2016 2:57 PM EDT IMPRESSIONS No evidence of myocardial ischemia or prior myocardial infarction. ?? Normal left ventricular size and function. ?? No wall motion abnormalities. ?SEB LYLE MD Narrative Procedure Note Seb Lyle MD - 12/30/2016 IMPRESSION IMPRESSIONS No evidence of myocardial ischemia or prior myocardial infarction. Normal left ventricular size and function. No wall motion abnormalities. SEB LYLE MD Sena Rodriguez APRN IMG NM CARDIAC ORDERABLES F inal Result * (ABNORMAL) GLUCOSE METER POC (12/30/2016 12:05 PM EDT) [facility] Glucose Meter POC 119(H) 70 - 100 mg/dL [facility] POINT [facility]ARE [facility] Sample Type Capillary [facility] Patient Status Non-Critical Patient [facility] Blood specimen (specimen) 12/30/2016 12:05 PM EDT 12/30/2016 12:05 PM EDT Jarad Harvey MD POINT OF CARE TEST ORDERABLES F inal Result [facility] [address] [facility] [place] [address] * US RENAL AND BLADDER (12/30/2016 10:07 AM EDT) Anatomical Region Laterality Modality Abdomen, Pelvis Ultrasound 12/30/2016 10:0 7 AM EDT Impressions 12/30/2016 10:30 AM EDT Normal renal ultrasound. Narrative 12/30/2016 10:30 AM EDT US RENAL AND BLADDER ?? HISTORY: -Elevated creatinine 1.5. History of hypertension and diabetes EXAM DATE:12/30/2016 10:07 AM Findings: The right kidney is 9.9 x 4.0 x 5.7 cm. The left kidney is 9.0 x 3.9 x 3.6 cm. Kidneys have normal cortical thickness and echogenicity. No masses or hydronephrosis present. Bladder is nondistended Procedure Note Mary Larsen MD - 12/30/2016 US RENAL AND BLADDER HISTORY: -Elevated creatinine 1.5. History of hypertension and diabetes EXAM DATE:12/30/2016 10:07 AM Findings: The right kidney is 9.9 x 4.0 x 5.7 cm. The left kidney is 9.0 x 3.9 x 3.6cm. Kidneys have normal cortical thickness and echogenicity. No masses or hydronephrosis present. Bladder is nondistended IMPRESSION: Normal renal ultrasound. us Sena Rodriguez APRN IMG US ORDERABLES Final Res ult * HEMOGLOBIN A1C (12/30/2016 9:40 AM EDT) [facility] Hgb A1c 6.3 <=7.0 % [facility] Comment: Reference Interval for Hgb A1c Hgb A1c ?Interpretation ? < 6.0 ?Non-Diabetic Range 6.0 - 7.0 ? ADA Therapeutic Target ??> 7.0 ? Action suggested Blood specimen (specimen) UPPER LIMB STRUCTURE / Unknown 12/30/2016 9:40 AM EDT 12/30/2016 1:34 PM EDT Sena Rodriguez APRN CHEMISTRY ORDERABLES Final Result Performing Organization Address [facility] Co de Phone Number PS[facility]IATRIC LABORATORY [address] [place] [address] * (ABNORMAL) BASIC METABOLIC PANEL (12/30/2016 7:47 AM EDT) [facility] Sodium 143 136 - 145 mmol/L [facility] Potassium 4.3 3.5 - 5.0 mmol/L [facility] Chloride 107 98 - 107 mmol/L [facility] Total CO2 24 22 - 29 mmol/L [facility] Anion Gap 12 7 - 16 mmol/L [facility] Calcium 8.7 8.6 - 10.2 mg/dL [facility] Glucose Lvl 132(H) 74 - 100 mg/dL [facility] BUN 26(H) 6 - 20 mg/dL [facility] Creatinine 1.54(H) 0.51 - 1.30 mg/dL [facility] GFR Afr Am 42 [facility] GFR Non Afr Am 35 [facility] Blood specimen (specimen) UPPER LIMB STRUCTURE / Unknown 12/30/2016 7:47 AM EDT 12/30/2016 7:51 AM EDT Sena Rodriguez APRN CHEMISTRY ORDERABLES Edited Result - Final Performing Organization Address City/[facility] Co de Phone Number [facility] [address] [place] [address] * D-DIMER (12/30/2016 7:47 AM EDT) Pathologist [facility] D-Dimer <230 <=230 ng/mL D-DU [facility] Comment: This test has been clinically validated by the supervisor of research and approved by the FDA for exclusion of pulmonary embolism (PE) or deep vein thrombosis (DVT) in patients with a low clinical risk assessment. ?? The cutoff for exclusion of PE and DVT is < 230 ng/mL D-Dimer Units. Increased levels of D-dimer are associated with PE, DVT, disseminated intravascular coagulation, malignancies, inflammation, sepsis, surgery, trauma, , and advanced patient age. [KELVIN 2006 11:295(2): 199-207] Blood specimen (specimen) UPPER LIMB STRUCTURE / Unknown 12/30/2016 7:47 AM EDT 12/30/2016 7:51 AM EDT us Sena Rodriguez MVA REACTOR OPERATOR HEAD HEMATOLOGY ORDERABLES Final Result Performing Organization Address City/[facility] Co de Phone Number [facility] [address] [phone] * (ABNORMAL) GLUCOSE METER POC (12/30/2016 7:40 AM EDT) Glucose Meter POC 126(H) 70 - 100 mg/dL [facility]ARE [facility] Sample Type Capillary [facility] POIN T OF CARE LABORATORY Patient Status Non-Critical Patient [facility] Blood specimen (specimen) 12/30/2016 7:40 AM EDT 12/30/2016 7:40 AM EDT Jarad Harvey MD POINT OF CARE TEST ORDERABLES F inal Result Performing Organization Address [facility] de Phone Number [facility] [address] [place] [address] [place] [address] * (ABNORMAL) GLUCOSE METER POC (12/30/2016 12:23 AM EDT) Glucose Meter POC 230(H) 70 - 100 mg/dL [facility] Sample Type Capillary [facility] POIN T OF CARE LAB[facility] Patient Status Non-Critical Patient [facility] Blood specimen (specimen) 12/30/2016 12:23 AM EDT 12/30/2016 12:23 AM EDT us Jarad Harvey MD POINT OF CARE TEST ORDERABLES F inal Result Performing Organization Address City/[facility] Co de Phone Number [facility] [address] [facility] [place] [address] * (ABNORMAL) LIPID SCREEN (12/30/2016 12:14 AM EDT) Cholesterol 167 <=200 mg/dL [facility] Comment: < 200 ?Desirable 200 - 239 ? Borderline High >= 240 ?High Triglyceride 264(H) <=150 mg/dL [facility] Comment: < 150 ? Normal 150 - 199 ?Borderline High 200 - 499 ?High ??>= 500 ? Very High HDL 20(L) >=40 mg/dL [facility] Comment: ?? > 60 ?Optimal 40 - 60 ?Acceptable ?? < 40 ?Low LDL Calculated 94 <=100 mg/dL [facility] Comment: ??< 100 ?Optimal 100 - 129 ? Near or above optimal 130 - 159 ? Borderline High 160 - 189 ? High >= 190 ?Very High Blood specimen (specimen) UPPER LIMB STRUCTURE / Unknown 12/30/2016 12:14 AM EDT 12/30/2016 5:15 AM EDT us Jarad Harvey MD CHEMISTRY ORDERABLES Edited Res ult - Final [facility] [address] [place] [address] * TROPONIN-T (12/30/2016 12:14 AM EDT) Troponin-T <0.01 <=0.00 ng/mL [facility] Comment: Values > or = 0.01 ng/mL have been shown to have prognostic value. Blood specimen (specimen) 12/30/2016 12:14 AM EDT 12/30/2016 1:23 AM EDT us Matilde Raphael MD CHEMISTRY ORDERABLES Final [facility] [address] [place] [id number] * EK EKG 12 LEAD (12/30/2016 12:05 AM EDT) Anatomical Region Laterality Modality Electrocardiogra phy 12/30/2016 7:47 AM EDT Impressions 12/30/2016 8:27 AM EDT ? Stationary ECG Study ?[facility] ? Interpretive Statements ? SINUS BRADYCARDIA Electronically Signed On 12-30-2016 8:27:40 EDT by Seb Lyle MD Narrative Procedure Note Seb Lyle MD - 12/30/2016 IMPRESSION [address] ECG Study [facility] Interpretive Statements SINUS BRADYCARDIA Electronically Signed On 12-30-2016 8:27:40 EDT by Seb Lyle MD Rufina Solano APRN IMG ECG ORDERABLES Final Re sult documented in this encounter Visit Diagnoses Diagnosis Unstable angina pectoris (HCC) Intermediate coronary syndrome VIOLA (acute kidney injury) (HCC) Acute kidney failure, unspecified Essential hypertension Unspecified essential hypertension documented in this encounter Administered Medications Inactive Administered Medications - up to 1 most recent administrations Medication Order MAR Action Action Date Dose Rate Site albuterol (PROVENTIL HFA;VENTOLIN HFA) inhaler 2 Puff 2 Puff, Inhalation, EVERY 6 HOURS PRN, Starting on Fri12/30/16 at 0657, Until Fri12/30/16 at 2305, Wheezing, Waste Sort Code = SP buPROPion (WELLBUTRIN SR) SR tablet 150 mg 150 mg, Oral, 2 TIMES DAILY, First dose on Fri12/30/16 at 0000, Until Discontinued Given 12/30/2016 2:31 PM EDT 150 mg enoxaparin (LOVENOX) injection 40 mg 40 mg, Subcutaneous, DAILY, First dose on Fri12/30/16 at 1000, Until Discontinued Given 12/30/2016 2:33 PM EDT 40 mg Abdominal Tissue estropipate (OGEN) tablet 0.75 mg 0.75 mg, Oral, DAILY, First dose on Fri12/30/16 at 0900, Until Discontinued, Therapeutic Interchange for conjugated estrogen (PREMARIN) 0.3 mg DAILY Given 12/30/2016 2:32 PM EDT 0.75 mg fenofibrate (LOFIBRA) tablet 160 mg 160 mg, Oral, DAILY, First dose on Fri12/30/16 at 0900, Until Discontinued Given 12/30/2016 2:32 PM EDT 160 mg gabapentin (NEURONTIN) capsule 100 mg 100 mg, Oral, 3 TIMES DAILY, First dose on Fri12/30/16 at 0900, Until Discontinued Given 12/30/2016 2:31 PM EDT 100 mg glucagon (human recombinant) (GLUCAGEN) injection 1 mg 1 mg, Subcutaneous, PRN, 2 doses, Starting on Fri12/29/16 at 2232, Until Fri12/30/16 at 2305, Low blood sugar, If no IV access and NPO or altered mental status or unable to take oral nourishment, If patient is without IV access, give IM, insert IV and call physician. insulin aspart (NovoLOG) injection 0-12 Units 0-12 Units, Subcutaneous, 3 TIMES DAILY WITH MEALS, First dose (after last reorder) on Fri12/30/16 at 0830, Until Discontinued, Insulin aspart (NOVOLOG) Mealtime Correction Dosing for Low Dose (less than 40 Units/day) Give 1 hour after meals FSBS Additional Insulin 141-180 2 Units 181-220 3 Units 221-260 4 Units 261-300 6 Units 301-340 8 Units 341-380 10 Units Over 380 12 Units OK to give correction dosing if patient is NPO., Correction insulin doses must be by at least 3 hours. Waste Sort Code = BKC insulin aspart (NovoLOG) injection 0-6 Units 0-6 Units, Subcutaneous, NIGHTLY, First dose on Fri12/30/16 at 0015, Until Discontinued, Insulin aspart (NOVOLOG) Nightly Correction Dosing for Low Dose (less than 40 Units/day) FSBS Additional Insulin 141-180 0 Units 181-220 2 Units 221-260 2 Units 261-300 3 Units 301-340 4 Units 341-380 5 Units Over 380 6 Units OK to give correction dosing if patient is NPO. Correction insulin doses must be by at least 3 hours. Waste Sort Code = BKC Given 12/30/2016 12:45 AM EDT 2 Units Left Arm insulin aspart (NovoLOG) injection 0-6 Units 0-6 Units, Subcutaneous, NIGHTLY, First dose (after last reorder) on Fri12/30/16 at 2100, Until Discontinued, Insulin aspart (NOVOLOG) Nightly Correction Dosing for Low Dose (less than 40 Units/day) FSBS Additional Insulin 141-180 0 Units 181-220 2 Units 221-260 2 Units 261-300 3 Units 301-340 4 Units 341-380 5 Units Over 380 6 Units OK to give correction dosing if patient is NPO. Correction insulin doses must be by at least 3 hours. Waste Sort Code = BKC insulin glargine (LANTUS) injection 15 Units 15 Units, Subcutaneous, EVERY MORNING (INSULIN), First dose on Fri12/30/16 at 0700, Until Discontinued, Waste Sort Code = BKC Given 12/30/2016 6:57 AM EDT 15 Units Abdominal Tissue metoprolol (LOPRESSOR) tablet 25 mg 25 mg, Oral, 2 TIMES DAILY, First dose on Fri12/30/16 at 0000, Until Discontinued Given 12/29/2016 11:00 PM EDT 25 mg morphine injection 2 mg 2 mg, Intravenous, EVERY 4 HOURS PRN, Starting on Fri12/29/16 at 2142, Until Fri12/30/16 at 2305, Pain, Pain Unrelieved by Oral Opioid Therapy, More Severe Pain, Begin with lowest dose unless otherwise directed. Reassess pain in 15 minutes. If pain unrelieved, remainder of dose may be given to patient. Given 12/30/2016 11:14 AM EDT 2 mg morphine injection 4 mg 4 mg, Intravenous, EVERY 4 HOURS PRN, Starting on Fri12/29/16 at 2142, Until Fri12/30/16 at 2305, Pain, Pain Unrelieved by Oral Opioid Therapy, More Severe Pain, Begin with lowest dose unless otherwise directed. Reassess pain in 15 minutes. If pain unrelieved, remainder of dose may be given to patient. nitroGLYCERIN (NITROGLYN) 2 % ointment 1 Inch 1 Inch, Topical, EVERY 6 HOURS SCHEDULED (4 times per day), First dose on Fri12/30/16 at 0000, Until Discontinued, Wipe off old dose, apply to chest wall. oxyCODONE-acetaminophen (PERCOCET) 5-325 mg per tablet 1-2 Tab 1-2 Tablet, Oral, EVERY 4 HOURS PRN, Starting on Fri12/29/16 at 2142, Until Fri12/30/16 at 2305, Pain, Begin with lowest dose unless otherwise directed. Reassess pain in one hour. If pain unrelieved, remainder of dose may be given to patient. Maximum adult dose of acetaminophen is 4000 mg from all sources in 24 hours. Given 12/30/2016 4:08 PM EDT 2 Tablets promethazine (PHENERGAN) tablet 25 mg 25 mg, Oral, EVERY 6 HOURS PRN, Starting on Fri12/29/16 at 2235, Until Fri12/30/16 at 2305, Nausea, Vomiting Given 12/30/2016 4:08 PM EDT 25 mg regadenoson (LEXISCAN) injection 0.4 mg 0.4 mg, Intravenous, ONCE, 1 dose, On Fri12/30/16 at 1515, Echo Meds Given 12/30/2016 1:55 PM EDT 0.4 mg sodium chloride 0.9% syringe Intravenous, ONCE PRN, 1 dose, Starting on Fri12/30/16 at 1028, Until Fri12/30/16 at 1358, Line Care, Flush every shift or after IV medication, Radiology Given 12/30/2016 1:58 PM EDT 20 mL [id number]-fzqueflqauw (MYOVIEW) injection 10-45 millicurie 10-45 millicurie, Intravenous, ONCE PRN, 1 dose, Starting on Fri12/30/16 at 1028, Until Fri12/30/16 at 1359, Radiology Procedure, Administration dose must be within 10% of the ordered dose for radiopharmaceutical medications., Radiology Given 12/30/2016 1:59 PM EDT 31.6 millicuries [id number]-[id number] (MYOVIEW) injection 10-45 millicurie 10-45 millicurie, Intravenous, ONCE PRN, 1 dose, Starting on Fri12/30/16 at 1028, Until Fri12/30/16 at 1028, Radiology Procedure, Administration dose must be within 10% of the ordered dose for radiopharmaceutical medications., Radiology Given 12/30/2016 10:28 AM EDT 15 millicuries topiramate (TOPAMAX) tablet 50 mg 50 mg, Oral, 2 TIMES DAILY, First dose on Fri12/30/16 at 0000, Until Discontinued Given 12/30/2016 2:31 PM EDT 50 mg documented in this encounter Discontinued Medications Medication Sig Discontinue Reason Start Date End Da te sulfamethoxazole-trime thoprim (BACTRIM DS) 800-160 mg per tablet Take 1 Tab by mouth daily. Stop Taking at Discharge 12/30/2016 oxyCODONE (ROXICODONE) 5 mg tablet Take 1 Tab by mouth every 8 hours as needed for Pain for 20 doses. Stop Taking at Discharge 08/19/2013 12/30/2016 documented as of this encounter Active and Recently Administered Medications Times are shown in EDT. Scheduled Medication Order 12/28/2016 12/29/2016 12/30/2016 buPROPion (WELLBUTRIN SR) SR tablet 150 mg 150 mg, Oral, 2 TIMES DAILY, First dose on Fri12/30/16 at 0000, Until Discontinued 0100 (Given - Provid er: Sharon Corado RN)1431 (Given - Provider: Marni Gonzalez RN) enoxaparin (LOVENOX) injection 40 mg 40 mg, Subcutaneous, DAILY, First dose on Fri12/30/16 at 1000, Until Discontinued 1433 (Given - Provid er: Marni Gonzalez RN) estropipate (OGEN) tablet 0.75 mg 0.75 mg, Oral, DAILY, First dose on Fri12/30/16 at 0900, Until Discontinued, Therapeutic Interchange for conjugated estrogen (PREMARIN) 0.3 mg DAILY 143 (Given - Provid er: Marni Gonzalez RN) fenofibrate (LOFIBRA) tablet 160 mg 160 mg, Oral, DAILY, First dose on Fri12/30/16 at 0900, Until Discontinued 1432 (Given - Provid er: Marni Gonzalez RN) gabapentin (NEURONTIN) capsule 100 mg 100 mg, Oral, 3 TIMES DAILY, First dose on Fri12/30/16 at 0900, Until Discontinued 1200 (Not Given - Provider: Marni Gonzalez RN - Reason: Patient not available)1431 (Given - Provider: Marni Gonzalez RN) insulin aspart (NovoLOG) injection 0-12 Units 0-12 Units, Subcutaneous, 3 TIMES DAILY WITH MEALS, First dose (after last reorder) on Fri12/30/16 at 0830, Until Discontinued, Insulin aspart (NOVOLOG) Mealtime Correction Dosing for Low Dose (less than 40 Units/day) Give 1 hour after meals FSBS Additional Insulin 141-180 2 Units 181-220 3 Units 221-260 4 Units 261-300 6 Units 301-340 8 Units 341-380 10 Units Over 380 12 Units OK to give correction dosing if patient is NPO., Correction insulin doses must be by at least 3 hours. Waste Sort Code = BKC 0830 (Not Given - Provider: Marni Gonzalez RN - Reason: Order parameters not met)1200 (Not Given - Provider: Marni Gonzalez RN - Reason: Patient not available)1800 (Not Given - Provider: Marni Gonzalez RN - Reason: Patient/family declined) insulin aspart (NovoLOG) injection 0-6 Units (CANCELED) 0-6 Units, Subcutaneous, NIGHTLY, First dose on Fri12/30/16 at 0015, Until Discontinued, Insulin aspart (NOVOLOG) Nightly Correction Dosing for Low Dose (less than 40 Units/day) FSBS Additional Insulin 141-180 0 Units 181-220 2 Units 221-260 2 Units 261-300 3 Units 301-340 4 Units 341-380 5 Units Over 380 6 Units OK to give correction dosing if patient is NPO. Correction insulin doses must be by at least 3 hours. Waste Sort Code = BKC 0045 (Given - Provid er: Sharon Corado RN) insulin aspart (NovoLOG) injection 0-6 Units 0-6 Units, Subcutaneous, NIGHTLY, First dose (after last reorder) on Fri12/30/16 at 2100, Until Discontinued, Insulin aspart (NOVOLOG) Nightly Correction Dosing for Low Dose (less than 40 Units/day) FSBS Additional Insulin 141-180 0 Units 181-220 2 Units 221-260 2 Units 261-300 3 Units 301-340 4 Units 341-380 5 Units Over 380 6 Units OK to give correction dosing if patient is NPO. Correction insulin doses must be by at least 3 hours. Waste Sort Code = BKC insulin glargine (LANTUS) injection 15 Units 15 Units, Subcutaneous, EVERY MORNING (INSULIN), First dose on Fri12/30/16 at 0700, Until Discontinued, Waste Sort Code = BKC 0657 (Given - Provid er: Sharon Corado RN - Comment: Verfied by Radha Salvador) insulin glargine (LANTUS) injection 20 Units 20 Units, Subcutaneous, EVERY EVENING (INSULIN), First dose on Fri12/30/16 at 1900, Until Discontinued, Do not mix with other insulins Waste Sort Code = BK 1900 (Not Given - Provider: Marni Gonzalez RN - Reason: Other) metoprolol (LOPRESSOR) tablet 25 mg 25 mg, Oral, 2 TIMES DAILY, First dose on Fri12/30/16 at 0000, Until Discontinued 2300 (Given - Provider: Sharon Corado RN) 0900 (Not Given - Provider: Marni Gonzalez RN - Reason: NPO) nitroGLYCERIN (NITROGLYN) 2 % ointment 1 Inch 1 Inch, Topical, EVERY 6 HOURS SCHEDULED (4 times per day), First dose on Fri12/30/16 at 0000, Until Discontinued, Wipe off old dose, apply to chest wall. 0000 (Not Given - Provider: Sharon Corado RN - Reason: Patient/family declined - Comment: Pt reported it didn't help her chest pain and made her headache worse, her BP is low)0600 (Not Given - Provider: Sharon Corado RN - Reason: Patient/family declined - Comment: Pt's BP is low and pt reports Nitro doesn't help)1200 (Not Given - Provider: Marni Gonzalez RN - Reason: Patient not available)1800 (Not Given - Provider: Marni Gonzalez RN - Reason: Patient/family declined) regadenoson (LEXISCAN) injection 0.4 mg (COMPLETED) 0.4 mg, Intravenous, ONCE, 1 dose, On Fri12/30/16 at 1515, Echo Meds 1355 (Given - Provid er: Alexander Somers RN) topiramate (TOPAMAX) tablet 50 mg 50 mg, Oral, 2 TIMES DAILY, First dose on Fri12/30/16 at 0000, Until Discontinued 0100 (Given - Provid er: Sharon Corado RN)1431 (Given - Provider: Marni Gonzalez RN) PRN Medication Order 12/28/2016 12/29/2016 12/30/2016 albuterol (PROVENTIL HFA;VENTOLIN HFA) inhaler 2 Puff 2 Puff, Inhalation, EVERY 6 HOURS PRN, Starting on Fri12/30/16 at 0657, Until Fri12/30/16 at 2305, Wheezing, Waste Sort Code = SP glucagon (human recombinant) (GLUCAGEN) injection 1 mg 1 mg, Subcutaneous, PRN, 2 doses, Starting on Fri12/29/16 at 2232, Until Fri12/30/16 at 2305, Low blood sugar, If no IV access and NPO or altered mental status or unable to take oral nourishment, If patient is without IV access, give IM, insert IV and call physician. morphine injection 2 mg(Linked Group 1) 2 mg, Intravenous, EVERY 4 HOURS PRN, Starting on Fri12/29/16 at 2142, Until Fri12/30/16 at 2305, Pain, Pain Unrelieved by Oral Opioid Therapy, More Severe Pain, Begin with lowest dose unless otherwise directed. Reassess pain in 15 minutes. If pain unrelieved, remainder of dose may be given to patient. 0121 (Given - Provider: Sharon Corado RN)0609 (Given - Provider: Sharon Corado RN)1114 (Given - Provider: Marni Gonzalez, JOVANNY) morphine injection 4 mg(Linked Group 1) 4 mg, Intravenous, EVERY 4 HOURS PRN, Starting on Fri12/29/16 at 2142, Until Fri12/30/16 at 2305, Pain, Pain Unrelieved by Oral Opioid Therapy, More Severe Pain, Begin with lowest dose unless otherwise directed. Reassess pain in 15 minutes. If pain unrelieved, remainder of dose may be given to patient. 0121 (See Alternativ e - Provider: Sharon Corado RN)0609 (See Alternative - Provider: Sharon Corado RN)1114 (See Alternative - Provider: Marni Gonzalez, JOVANNY) oxyCODONE-acetaminophen (PERCOCET) 5-325 mg per tablet 1-2 Tab 1-2 Tablet, Oral, EVERY 4 HOURS PRN, Starting on Fri12/29/16 at 2142, Until Fri12/30/16 at 2305, Pain, Begin with lowest dose unless otherwise directed. Reassess pain in one hour. If pain unrelieved, remainder of dose may be given to patient. Maximum adult dose of acetaminophen is 4000 mg from all sources in 24 hours. 2255 (Given - Provider: Sharon Corado, RN) 1608 (Given - Provider: Marni Gonzalez, RN) promethazine (PHENERGAN) tablet 25 mg 25 mg, Oral, EVERY 6 HOURS PRN, Starting on Fri12/29/16 at 2235, Until Fri12/30/16 at 2305, Nausea, Vomiting 2354 (Given - Provider: Sharon Corado, RN) 1608 (Given - Provider: Marni Gonzalez, RN) sodium chloride 0.9% syringe (COMPLETED) Intravenous, ONCE PRN, 1 dose, Starting on Fri12/30/16 at 1028, Until Fri12/30/16 at 1358, Line Care, Flush every shift or after IV medication, Radiology 1358 (Given - Provider: Leanna Bolden, PATTERNMAKER APPRENTICE WOOD) Mv-42v-inuprqluvbm (MYOVIEW) injection 10-45 millicurie (COMPLETED) 10-45 millicurie, Intravenous, ONCE PRN, 1 dose, Starting on Fri12/30/16 at 1028, Until Fri12/30/16 at 1359, Radiology Procedure, Administration dose must be within 10% of the ordered dose for radiopharmaceutical medications., Radiology 1359 (Given - Provider: Leanna Bolden, PATTERNMAKER APPRENTICE WOOD) Mc-13h-djrhkzzobpe (MYOVIEW) injection 10-45 millicurie (COMPLETED) 10-45 millicurie, Intravenous, ONCE PRN, 1 dose, Starting on Fri12/30/16 at 1028, Until Fri12/30/16 at 1028, Radiology Procedure, Administration dose must be within 10% of the ordered dose for radiopharmaceutical medications., Radiology 1028 (Given - Provider: Leanna Bolden, PATTERNMAKER APPRENTICE [employer]) Linked Groups Order Group 1: morphine injection 2 mgJump to med 2 mg, Intravenous, EVERY 4 HOURS PRN, Starting on Fri12/29/16 at 2142, Until Fri12/30/16 at 2305, Pain, Pain Unrelieved by Oral Opioid Therapy, More Severe Pain, Begin with lowest dose unless otherwise directed. Reassess pain in 15 minutes. If pain unrelieved, remainder of dose may be given to patient. Or morphine injection 4 mgJump to med 4 mg, Intravenous, EVERY 4 HOURS PRN, Starting on 12/29/16 at 2142, Until 12/30/16 at 2305, Pain, Pain Unrelieved by Oral Opioid Therapy, More Severe Pain, Begin with lowest dose unless otherwise directed. Reassess pain in 15 minutes. If pain unrelieved, remainder of dose may be given to patient. documented in this encounter Orders Medications Ordered That Marco ht Not Have Been Administered Count Last Ordered Date First Ordered Date albuterol (PROVENTIL HFA;BENOIT TOLIN HFA) inhaler 2 Puff 2 12/30/2016 12/29/2016 insulin aspart (NovoLOG) inj ection 0-12 Units 2 12/30/2016 12/29/2016 insulin aspart (NovoLOG) inj ection 0-6 Units 1 12/30/2016 dextrose 10% IV bolus 250 mL 1 12/29/2016 glucagon (human recombinant) (GLUCAGEN) injection 1 mg 1 12/29/2016 insulin glargine (LANTUS) in jection 20 Units 1 12/29/2016 morphine injection 4 mg 1 12/29/2016 nitroGLYCERIN (NITROGLYN) 2 % ointment 1 Inch 1 12/29/2016 pantoprazole (PROTONIX) tablet 40 mg 1 12/06 tiZANidine (ZANAFLEX) tablet 4 mg 1 017 Nursing Count Last Ordered Date First Orde red Date ADMISSION 12/29/2016 Transfer Count Last Ordered Date First Orde red Date BED REQUEST 1 12/29/2016 documented in this encounter Care Teams Proposal Analyst Relationship Specialty Start Date End Date Lupillo Garcia MD PCP - General Family Medicine 11/10/12 documented as of this encounter
--- OUTSIDE RECORDS SUMMARY | 2024-06-22 10:21 | XMS_ITS | Encounter Summary ---
Author Organization [facility] [place] [address] Care Team Providers Care Lopper Name Role Phone Lupillo Garcia MD Primary Care Provider [phone]- [phone] Encounter Details Date Type Department Care Team (Latest Contact Info) Description 03/03/2021 Travel Social History Tobacco Use Types Packs/Day Years [...] suspected to have Coronavirus / COVID-19? Yes 03/03/2021 2:45 PM EDT documented as of this encounter Plan of Treatment Not on file documented as of this encounter Visit Diagnoses Not on filedocumented in this encounter Additional Health Concerns Infection Onset Date Last Indicated Resolved Time R/O COVID-19 03/03/2021 03/03/2021 03/03/2021 3:23 PM EDT COVID-19 03/03/2021 03/03/2021 04/02/2021 10:1 2 PM EDT documented as of this encounter Care Teams Lopper Relationship Specialty Start Date End Date Lupillo Garcia MD PCP - General Family Medicine 11/10/12 documented as of this encounter
--- OUTSIDE RECORDS SUMMARY | 2024-06-22 10:21 | XMS_ITS | Encounter Summary ---
Author Organization [facility] [place] [address] Care Team Providers Care Foundry Operator Name Role Phone Lupillo Garcia MD Primary Care Provider [phone]- [phone] Encounter Details Date Type Department Care Team (Late st Contact Info) Description 03/03/2021 Orders Only [facility] [address] [phone] Kayleen Gilbert, [facility] COVID Social History Tobacco Use Types Packs/Day Years [...] PM EDT documented as of this encounter Progress Notes * Kayleen Gilbert [facility] - 03/03/2021 6:43 PM EDT COVID Monoclonal Antibody Infusion Verification Tyra Romero is a 60 y.o. year old female presenting to [facility] for treatment of coronavirus disease. Patient is scheduled to receive casirivimab 600 mg + imdevimab 600 mg once. Orders are signed. Patient weight: 68.5 kg In accordance with the FDA Emergency Use Authorization issuance the patient meets criteria for treatment including: Patient does not have new or increased oxygen requirement Patient is receiving the infusion in an outpatient setting Symptom onset within 10 days Date of onset as documented in the medical record: 03/01/21 Positive SARS-CoV-2 test Date of test or chart documentation: 03/03/21 [facility] recommends treatment within 3 days of a positive test High risk as defined as (should meet at least ONE of the following): BMI >= 25 Diabetes Hypertension Other medical conditions or factors may also place patients at high risk. Authorization of treatment is not limited to the list above. If adverse events are reported, these will be documented in [facility] and filed through the FDA MedWatch. Thank you, Kayleen Gilbert, PharmD, BCPS Per CDC recommendations, COVID19 vaccination should be deferred for at least 90 days, as a precautionary measure until additional information becomes available, to avoid potential interference of theantibody therapy with vaccine-induced immune responses. documented in this encounter Plan of Treatment Not on file documented as of this encounter Visit Diagnoses Diagnosis COVID documented in this encounter Additional Health Concerns Infection Onset Date Last Indicated Resolved Time R/O COVID-19 03/03/2021 03/03/2021 03/03/2021 3:23 PM EDT COVID-19 03/03/2021 03/03/2021 04/02/2021 10:1 2 PM EDT documented as of this encounter Care Teams Foundry Operator Relationship Specialty Start Date End Date Lupillo Garcia MD PCP - General Family Medicine 11/10/12 documented as of this encounter
--- OUTSIDE RECORDS SUMMARY | 2024-06-22 10:21 | XMS_ITS | Encounter Summary ---
Author Organization [place] [address] Care Team Providers Care Commutator Assembler Name Role Phone Lupillo Garcia MD Primary Care Provider [phone]- [phone] Encounter Details Date Type Department Care Team (Latest Contact Info) Description 01/14/2018 2:44 PM EDT - 01/14/2018 11:59 PM EDT Hospital Encounter [facility] [address] [place] [address] Left shoulder pain, unspecified chronicity Discharge Disposition: Home or Self Care Social [...] Procedure Name Priority Date/Time Associated Diagnosis Comments XR SHOULDER LEFT 3 VIEWS Routine 01/14/2018 2:49 PM EDT Left shoulder pain, unspecified chronicity documented in this encounter Results * XR SHOULDER LEFT 3 VIEWS (01/14/2018 2:49 PM EDT) Anatomical Region Laterality Modality Shoulder Radiographic Hailey ging 01/14/2018 2:49 PM EDT Impressions 01/14/2018 3:47 PM EDT No acute bony abnormality of the shoulder. Narrative 01/14/2018 3:47 PM EDT XR SHOULDER LEFT 3 VIEWS, ??01/14/2018 2:49 PM CLINICAL HISTORY: ??M25.512-Pain in left [id number] COMPARISON: ??None. PROCEDURE COMMENTS: 3 views of the shoulder per protocol. FINDINGS: ?? The glenohumeral and acromioclavicular joints are congruent. There is no fracture. Joint spaces are maintained. There is extensive hardware and fusion in the thoracic spine Procedure Note Manoj Dominguez MD - 01/14/2018 XR SHOULDER LEFT 3 VIEWS, 01/14/2018 2:49 PM CLINICAL HISTORY: M25.512-Pain in left [id number] COMPARISON: None. PROCEDURE COMMENTS: 3 views of the shoulder per protocol. FINDINGS: The glenohumeral and acromioclavicular joints are congruent. There is no fracture. Joint spaces are maintained. There is extensive hardware and fusion inthe thoracic spine IMPRESSION: No acute bony abnormality of the shoulder. us Lupillo Garcia MD IMG DIAGNOSTIC IMAGING [facility] Final Result documented in this encounter Visit Diagnoses Diagnosis Left shoulder pain, unspecified chronicity documented in this encounter Care Teams Commutator Assembler Relationship Specialty Start Date End Date Lupillo Garcia MD PCP - General Family Medicine 11/10/12 documented as of this encounter
--- OUTSIDE RECORDS SUMMARY | 2024-06-22 10:21 | XMS_ITS | Encounter Summary ---
Author Organization [place] [address] Care Team Providers Care Automatic Profile Sander Operator Name Role Phone Lupillo Garcia MD Primary Care Provider [phone] Encounter Details Date Type Department Care Team (Latest Contact Info) Description 10/27/2020 9:34 AM EDT - 10/27/2020 11:59 PM EDT Hospital Encounter [facility] [address] [place] [address] Acute pain of left knee Discharge Disposition: Home or Self Care Social [...] or suspected to have Coronavirus / COVID-19? No / Unsure 10/27/2020 9:33 AM EDT documented as of this encounter Medications at [...] Subcutaneous (Inject under the skin). Sliding scale methocarbamoL (ROBAXIN) 500 mg Oral Tablet Take [...] daily. acetaminophen 325 mg Oral Tab Take by mouth every 4 hours as needed for Pain. 1 lisinopriL (PRINIVIL;ZESTRI L) 2.5 mg Oral Tablet Take by mouth daily. 1 spironolactone (ALDACTONE) 50 mg Oral Tablet Take 50 mg by mouth daily. 1 documented as of this encounter Discharge Disposition Disposition Code Departure Means Destination Home or Self Care documented in this encounter Plan of Treatment Not on file documented as of this encounter Procedures Procedure Name Priority Date/Time Associated Diagnosis Comments XR KNEE LEFT AP LATERAL AND SUNRISE STANDING Routine 10/27/2020 9:46 AM EDT Acute pain of left knee documented in this encounter Results * XR KNEE LEFT AP LATERAL AND SUNRISE STANDING (10/27/2020 9:46 AM EDT) Anatomical Region Laterality Modality Knee Radiographic Hailey ging 10/27/2020 9:46 AM EDT Impressions 10/27/2020 9:54 AM EDT Mild osteoarthritis. Question of loose bodies along the lateral joint line. - Note: Radiology results need to be interpreted within a comprehensive clinical context. ??If you have questions about the radiology report, please contact the office of the ordering clinician. Narrative 10/27/2020 9:54 AM EDT XR KNEE LEFT AP LATERAL AND SUNRISE STANDING, ??10/27/2020 9:46 AM CLINICAL HISTORY: ??M25.562-Pain in left [id number] COMPARISON: ??None. PROCEDURE COMMENTS: XR KNEE LEFT AP LATERAL AND SUNRISE STANDING FINDINGS: No evidence of knee fracture or malalignment. No significant effusion. Mild medial joint space narrowing. On the lateral side of knee there are 4 osseous densities that could represent loose bodies ranging in size from 6 mm to 10 mm. Procedure Note Manoj Dominguez MD - 10/27/2020 XR KNEE LEFT AP LATERAL AND SUNRISE STANDING, 10/27/2020 9:46 AM CLINICAL HISTORY: M25.562-Pain in left [id number]-[id number]-CM COMPARISON: None. PROCEDURE COMMENTS: XR KNEE LEFT AP LATERAL AND SUNRISE STANDING FINDINGS: No evidence of knee fracture or malalignment. No significanteffusion. Mild medial joint space narrowing. On the lateral side of knee there are 4 osseous densities that couldrepresent loose bodies ranging in size from 6 mm to 10 mm. IMPRESSION: Mild osteoarthritis. Question of loose bodies along the lateral joint line. - Note: Radiology results need to be interpreted within a comprehensiveclinical context. If you have questions about the radiology report, please contactthe office of the ordering clinician. Lupillo Garcia MD [facility] Final Result documented in this encounter Visit Diagnoses Diagnosis Acute pain of left knee documented in this encounter Care Teams Automatic Profile Sander Operator Relationship Specialty Start Date End Date Lupillo Garcia MD PCP - General Family Medicine 11/10/12 documented as of this encounter
--- OUTSIDE RECORDS SUMMARY | 2024-06-22 10:21 | XMS_ITS | Encounter Summary ---
Author Organization [facility] [place] [address] Care Team Providers Care Cast Shell Grinder Name Role Phone Lupillo Garcia MD Primary Care Provider [phone]- [phone] Encounter Details Date Type Department Care Team (Latest Contact Info) Description 01/04/2020 Travel Social History Tobacco Use Types Packs/Day [...] Diagnoses Not on filedocumented in this encounter Care Teams Cast Shell Grinder Relationship Specialty Start Date End Date Lupillo Garcia MD PCP - General Family Medicine 11/10/12 documented as of this encounter
--- OUTSIDE RECORDS SUMMARY | 2024-06-22 10:21 | XMS_ITS | Encounter Summary ---
Author Organization [place] [address] Care Team Providers Care Director Of Search Engine Optimization Name Role Phone Lupillo Garcia MD Primary Care Provider [phone]- [phone] Reason for Visit * Reason Comments Migraine Migraine, history of migraines. for last 5 days. Tylenol early this morning Encounter Details Date Type Department Care Team (Late st Contact Info) Description 01/04/2020 3:34 PM EDT - 01/04/2020 6:25 PM EDT Emergency [facility] [address] [place] [address] Paras Freire MD [address] [place] [id number] Migraine without aura and with status migrainosus, not intractable (Primary Dx) Discharge Disposition: Home or Self Care Social [...] Sign Reading Time Taken Comments Blood Pressure 141/80 01/04/2020 6:23 PM EDT Pulse 64 01/04/2020 6:23 PM EDT Temperature 37.1 ??C (98.7 ??F) 01/04/2020 3:34 PM ED T Respiratory Rate 18 01/04/2020 6:23 PM EDT Oxygen Saturation 97% 01/04/2020 6:23 PM EDT Inhaled Oxygen Concentration - - Weight - - Height - - Body Mass Index - - documented in this encounter Discharge Instructions * Discharge Instructions* Paras Freire MD - 01/04/2020 6:19 PM EDT Return for any focal neurologic symptoms or for any atypical headache or for any other concern. Follow up with her primary care provider. documented in this encounter Medications at Time [...] Code Departure Means Destination Home or Self Correction documented in this encounter ED Notes * Paras Freire MD - 01/04/2020 3:30 PM EDT CHIEF COMPLAINT Chief Complaint Patient presents with ??? Migraine Migraine, history of migraines. for last 5 days. Tylenol early this morning HPI Tyra Romero is a 59 y.o. female who presents for complaint of headache. Patient states headachefor the last 5 days. Feels like her migraine headache. States that she is to get them frequently but does not have one for about 6 months. Headache is diffuse, frontal going over the top of the head into the occipital region bilaterally. Described as a squeezing and throbbing sensation. Gradual onset. No sudden onset or thunderclap onset. States nausea with some nonbilious vomiting. No fever or chills. No neck stiffness. No acute vision or speech changes. No extremity weakness or numbness. Doesstate photosensitivity. Symptoms are similar to prior migraines. Has been using 2 regular strength T ylenol every 6 hours for the last 3 or 4 days without much improvement. REVIEW OF SYSTEMS See HPI for further details. Review of systems otherwise negative. PAST MEDICAL HISTORY Past 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: Diagnosis Date ??? Asthma ??? Depression ??? Diabetes mellitus (HCC) ??? Encounter for blood transfusion ??? Headache(784.0) ??? Heart murmur ??? Heartburn ??? Syncope and collapse ??? Unspecified sleep apnea no machine FAMILY HISTORY No family history on file. SOCIAL HISTORY Social History Socioeconomic History ??? Marital status: Spouse name: None ??? Number of children: None ??? Years of education: None ??? Highest education level: None Tobacco Use ??? Smoking status: Never Smoker ??? Smokeless tobacco: Never Used Substance and Sexual Activity ??? Alcohol use: No ??? Drug use: No SURGICAL HISTORY Past Surgical History: Procedure Laterality Date ??? BACK SURGERY ??? FOOT SURGERY right x2 left x1 ??? HAND SURGERY LCTR left trigger finger ??? HIATAL HERNIA REPAIR x3 ??? HYSTERECTOMY ??? KNEE ARTHROSCOPY Left 08/19/2013 Left Knee Arthroscopy Partial Medial Meniscectomy Chondrplasty Patella Femoral condyle; Surgeon: Alexander Whittington MD; Location: ED MAIN OR; Service: Orthopedics ??? KNEE SURGERY right knee scope CURRENT MEDICATIONS Current Facility-Administered Medications: ??? acetaminophen (OFIRMEV) infusion 1,000 mg, 1,000 mg, Intravenous, Once, Paras Freire MD ??? diphenhydrAMINE (BENADRYL) injection 25 mg, 25 mg, Intravenous, Once, Praas Freire MD ??? haloperidol lactate (HALDOL) injection 2 mg, 2 mg, Intramuscular, Once, Paras Freire MD ??? sodium chloride 0.9 % 1,000 mL IV bolus, , Intravenous, Once, Paras Freire MD Current Outpatient Medications: ??? acetaminophen 325 mg Oral Tab, Take by mouth every 4 hours as needed for Pain., Disp: , Rfl: ??? albuterol (PROVENTIL HFA;VENTOLIN HFA) 90 mcg/actuation inhaler, Inhale 2 Puffs into the lungs every 6 hours as needed for Wheezing., Disp: , Rfl: ??? atorvastatin (LIPITOR) 40 mg Oral Tablet, Take 40 mg by mouth daily., Disp: , Rfl: ??? buPROPion (WELLBUTRIN SR) 150 mg SR tablet, Take 150 mg by mouth 2 times daily., Disp: , Rfl: ??? diazePAM (VALIUM) 5 mg Oral Tablet, Take by mouth every 8 hours., Disp: , Rfl: ??? estrogens, conjugated, (PREMARIN) 0.3 mg tablet, Take 0.3 mg by mouth daily., Disp: , Rfl: ??? gabapentin (NEURONTIN) 300 mg capsule, Take 100 mg by mouth 3 times daily., Disp: , Rfl: ??? insulin glargine (LANTUS) 100 unit/mL injection, Subcutaneous (Inject under the skin) 20 Units nightly. 15 units am, Disp: , Rfl: ??? INSULIN LISPRO (HUMALOG SUBQ), Subcutaneous (Inject under the skin). Sliding scale, Disp: , Rfl: ??? lisinopriL (PRINIVIL;ZESTRIL) 2.5 mg Oral Tablet, Take by mouth daily., Disp: , Rfl: ??? methocarbamoL (ROBAXIN) 500 mg Oral Tablet, Take 500 mg by mouth 4 times daily., Disp: , Rfl: ??? metoprolol (LOPRESSOR) 25 mg tablet, Take 25 mg by mouth 2 times daily., Disp: , Rfl: ??? omeprazole (PRILOSEC) 20 mg, Take 20 mg by mouth daily., Disp: , Rfl: ??? promethazine (PHENERGAN) 25 mg tablet, Take 25 mg by mouth every 6 hours as needed for Nausea.,Disp: , Rfl: ??? spironolactone (ALDACTONE) 50 mg Oral Tablet, Take 50 mg by mouth daily., Disp: , Rfl: ??? tiZANidine (ZANAFLEX) 4 mg tablet, Take 4 mg by mouth 3 times daily. Take 11/2 tabs as needed, Disp: , Rfl: ??? tocopherol acetate (VITAMIN E) 400 unit Oral Capsule, Take 400 Units by mouth daily., Disp: , Rfl: ??? topiramate (TOPAMAX) 50 mg tablet, Take 50 mg by mouth 2 times daily., Disp: , Rfl: ??? fenofibrate (LOFIBRA) 160 mg tablet, Take 160 mg by mouth daily., Disp: , Rfl: ??? HYDROcodone-acetaminophen (LORTAB) 10-500 mg, Take 1 Tab by mouth every 6 hours as needed., Disp: , Rfl: ??? SUMAtriptan (IMITREX) 100 mg tablet, Take 100 mg by mouth once as needed for Migraine., Disp: ,Rfl: ALLERGIES Allergies Allergen Reactions ??? Advil [Ibuprofen] Other [...] Zofran Odt [Ondansetron] Other (See Comments) seizures PHYSICAL EXAM VITAL SIGNS: BP 156/76 (Patient Position: Semi Fowlers) Pulse 76 Temp 98.7 ??F (37.1 ??C) (Oral) Resp 18 SpO2 100% Constitutional: Well developed, Well nourished, No acute distress, Non-toxic appearance. HENT: Normocephalic, Atraumatic, Bilateral external ears normal, Oropharynx moist, No oral exudates, Nose normal. Eyes: PERRLA, EOMI, Conjunctiva normal, No discharge. Neck: Normal range of motion, No tenderness, Supple, No stridor. Cardiovascular: Regular rate and rhythm Thorax & Lungs: No respiratory distress Abdomen: Bowel sounds normal, Soft, No tenderness, No masses, No pulsatile masses. Skin: Warm, Dry, No erythema, No rash. Back: No tenderness, No CVA tenderness. Extremities: Intact distal pulses, No tenderness, No cyanosis, No clubbing. Neurologic: Alert & oriented x 3, Normal motor function, Normal sensory function, No focal deficits noted. Gait steady COURSE & MEDICAL DECISION MAKING Pertinent Labs & Imaging studies reviewed. (See chart for details) Patient presents as per above. Given IV fluids, IV Tylenol, IV haloperidol and Benadryl. This has been effective for her in the past when she has presented with migraine. Patient resting comfortably. States headache has improved somewhat but still states headache present. Given a dose of IV Decadron. Patient observed for another 45 minutes. Headache almost completely resolved. Feeling much better. Requesting discharge. Well-appearing. Presentation not suggestive of ICH, subarachnoid hemorrhage, meningitis, or other emergent neurologic process. *[place] is currently under a State of Emergency for the COVID-19 Pandemic* Appropriate PPE was worn throughout the patient's ED encounter FINAL IMPRESSION 1. Migraine without aura and with status migrainosus, not intractable This chart was completed using voice recognition technology and may contain unintended errors Paras Freire MD 01/04/20 1820 documented in this encounter Plan of Treatment Not on file documented as of this encounter Visit Diagnoses Diagnosis Migraine without aura and with status migrainosus, not intractable- Primary Migraine without aura, without mention of intractable migraine with status migrainosus documented in this encounter Administered Medications Inactive Administered Medications - up to 1 most recent administrations Medication Order MAR Action Action Date Dose Rate Site acetaminophen (OFIRMEV) infusion 1,000 mg 1,000 mg, Intravenous, ONCE, 1 dose, On Fri01/04/20 at 1600, Administer over 15 Minutes, Maximum adult dose of acetaminophen is 4000 mg from all sources in 24 hours. IV Started 01/04/2020 4:04 PM EDT 1,000 mg 400 mL/hr dexamethasone (DECADRON) injection 10 mg 10 mg, Intravenous, ONCE, 1 dose, On Fri01/04/20 at 1715 Given 01/04/2020 5:11 PM EDT 10 mg diphenhydrAMINE (BENADRYL) injection 25 mg 25 mg, Intravenous, ONCE, 1 dose, On Fri01/04/20 at 1600 Given 01/04/2020 3:53 PM EDT 25 mg haloperidol lactate (HALDOL) injection 2 mg 2 mg, Intravenous, ONCE, 1 dose, On Fri01/04/20 at 1600 Given 01/04/2020 3:56 PM EDT 2 mg sodium chloride 0.9 % 1,000 mL IV bolus Intravenous, ONCE, 1 dose, On Fri01/04/20 at 1600, at 983.6 mL/hr IV Started 01/04/2020 4:04 PM EDT 983.6 mL/hr documented in this encounter Historical Medications * This list may reflect changes made after this encounter. atorvastatin (LIPITOR) 40 mg Oral Tablet Take 40 mg by mouth daily. diazePAM (VALIUM) 5 mg Oral Tablet Take by mouth every 8 hours. methocarbamoL (ROBAXIN) 500 mg Oral Tablet Take 500 mg by mouth 4 times daily. tocopherol acetate (VITAMIN E) 400 unit Oral Capsule Take 400 Units by mouth daily. spironolactone (ALDACTONE) 50 mg Oral Tablet Take 50 mg by mouth daily. 03/14/2021 lisinopriL (PRINIVIL;ZESTRIL ) 2.5 mg Oral Tablet Take by mouth daily. 03/14/2021 acetaminophen 325 mg Oral Tab Take by mouth every 4 hours as needed for Pain. 03/14/2021 added in this encounter Active and Recently Administered Medications Times are shown in EDT. Scheduled Medication Order 01/02/2020 01/03/2020 01/04/2020 acetaminophen (OFIRMEV) infusion 1,000 mg (COMPLETED) 1,000 mg, Intravenous, ONCE, 1 dose, On Fri01/04/20 at 1600, Administer over 15 Minutes, Maximum adult dose of acetaminophen is 4000 mg from all sources in 24 hours. 1604 (IV Started - P rovider: Anthony Wen)1619 (Stopped - Provider: Anthony Wen) dexamethasone (DECADRON) injection 10 mg (COMPLETED) 10 mg, Intravenous, ONCE, 1 dose, On e 01/04/20 at 1715 1711 (Given - Provid er: Anthony Wen) diphenhydrAMINE (BENADRYL) injection 25 mg (COMPLETED) 25 mg, Intravenous, ONCE, 1 dose, On Fri01/04/20 at 1600 1553 (Given - Provid er: Anthony Wen) haloperidol lactate (HALDOL) injection 2 mg (COMPLETED) 2 mg, Intravenous, ONCE, 1 dose, On Fri01/04/20 at 1600 1556 (Given - Provid er: Anthony Wen) sodium chloride 0.9 % 1,000 mL IV bolus (COMPLETED) Intravenous, ONCE, 1 dose, On e 01/04/20 at 1600, at 983.6 mL/hr 1604 (IV Started - P rovider: Anthony Wen)1701 (Stopped - Provider: Marni Fontenot RN) documented in this encounter Orders Medications Ordered That Marco ht Not Have Been Administered Count Last Ordered Date First Ordered Date haloperidol lactate (HALDOL) injection 2 mg 1 01/04/2020 documented in this encounter Care Teams Director Of Search Engine Optimization Relationship Specialty Start Date End Date Lupillo Garcia MD PCP - General Family Medicine 11/10/12 documented as of this encounter
--- OUTSIDE RECORDS SUMMARY | 2024-06-22 10:21 | XMS_ITS | Encounter Summary ---
Author Organization [facility] [place] [address] Care Team Providers Care Assembl[employer] Name Role Phone Lupillo Garcia MD Primary Care Provider [phone] Reason for Visit * Reason Comments Shortness of Breath the whole house has COVID symptoms x 2 days Encounter Details Date Type Department Care Team (Late st Contact Info) Description 03/03/2021 2:54 PM EDT - 03/03/2021 4:36 PM EDT Emergency [facility] [address] [place] [address] Phil Jara MD [address] [place] [phone] Gracy Ackerman MD [address] [place] [id number] COVID-19 (Primary Dx) Discharge Disposition: Home or Self [...] PM EDT documented as of this encounter Last Filed Vital Signs Vital Sign Reading Time Taken Comments Blood Pressure 119/61 03/03/2021 4:24 PM EDT Pulse 81 03/03/2021 2:54 PM EDT Temperature 37.7 ??C (99.8 ??F) 03/03/2021 2:54 PM ED T Respiratory Rate 20 03/03/2021 2:54 PM EDT Oxygen Saturation 97% 03/03/2021 4:24 PM EDT Inhaled Oxygen Concentration - - Weight 68.5 kg (151 lb) 03/03/2021 2:46 PM EDT Height 152.4 cm (5') 03/03/2021 2:46 PM EDT Body Mass Index 29.49 03/03/2021 2:46 PM EDT documented in this encounter Discharge Instructions * Discharge Instructions* Noelle Porter APRN - 03/03/2021 4:19 PM EDT Use should receive a phone call to schedule monoclonal antibody infusion Use medications as needed * Attachments The following attachments cannot be sent through Care Everywhere. * Casirivimab and Imdevimab FDA Fact Sheet (Cuban) * Coronavirus disease (COVID-19) (Cuban) * What to do when sick with Coronavirus (Cuban) * Coronavirus Self Isolation for Caregivers (Cuban) documented in this encounter Medications at Time [...] up to 30 days. 30 Tablet 03/03/2021 1 acetaminophen 325 mg Oral Tab Take by mouth every 4 hours as needed for Pain. 1 guaiFENesin (ROBITUSSIN) 100 mg/5 mL Oral Liquid 200-400 mg every 4 hours as needed for cough 236 mL 03/03/2021 1 lisinopriL (PRINIVIL;ZESTRI L) 2.5 mg Oral Tablet Take by mouth daily. 1 spironolactone (ALDACTONE) 50 mg Oral Tablet Take 50 mg by mouth daily. 1 documented as of this encounter Ordered Prescriptions Prescription Sig Dispense Quantity Refills Last Filled Start Date End Date guaiFENesin (ROBITUSSIN) 100 mg/5 mL Oral Liquid 200-400 mg every 4 hours as needed for cough 236 mL 03/03/2021 1 acetaminophen 325 mg Oral Tab Take 2 Tablets by mouth every 6 hours as needed for Pain or Fever for up to 30 days. 30 Tablet 03/03/2021 documented in this encounter Discharge Disposition Disposition Code Departure Means Destination Home or Self Assisted documented in this encounter ED Notes * Charlotte Noelle Lit, [employer] - 03/03/2021 2:43 PM EDT CHIEF COMPLAINT Chief Complaint Patient presents with ??? Shortness of Breath the whole house has COVID symptoms x 2 days HPI Tyra Romero is a 60 y.o. female who presents to the emergency department with concern for COVID-19. The patient's entire household tested positive for COVID-19 2 days ago. Patient states for the last couple of days she has had sharp constant chest pain with associated shortness of breath, cough, dizziness, headache, nausea vomiting and diarrhea with fevers and chills. Patient reports taking one Tylenol prior to arrival. She has not been vaccinated against COVID- 19. Past medical history includes asthma, diabetes and sleep apnea. REVIEW OF SYSTEMS See HPI for further [...] Gatherings with Friends and Family: ??? Attends Advent Services: ??? Active Member of Clubs or Organizations: ??? Attends Club or Organization Meetings: ??? Marital Status: Intimate Partner Violence: ??? Fear of Current or Ex-Partner: ??? Emotionally Abused: ??? Physically Abused: ??? Sexually Abused: SURGICAL HISTORY Past Surgical History: Procedure Laterality Date ??? BACK SURGERY ??? FOOT SURGERY right x2 left x1 ??? HAND SURGERY LCTR left trigger finger ??? HIATAL HERNIA REPAIR x3 ??? HYSTERECTOMY ??? KNEE ARTHROSCOPY Left 08/19/2013 Left Knee Arthroscopy Partial Medial Meniscectomy Chondrplasty Patella Femoral condyle; Surgeon: Alexander Whittington MD; Location: [facility] MAIN OR; Service: Orthopedics ??? KNEE SURGERY right knee scope CURRENT MEDICATIONS No current facility-administered medications for this encounter. Current Outpatient Medications: ??? acetaminophen 325 mg [...] by mouth daily., Disp: , Rfl: ??? fenofibrate (LOFIBRA) 160 mg tablet, Take 160 mg by mouth daily., Disp: , Rfl: ??? gabapentin (NEURONTIN) 300 mg capsule, Take 100 mg by mouth 3 times daily., Disp: , Rfl: ??? HYDROcodone-acetaminophen (LORTAB) 10-500 mg, Take 1 Tab by mouth every 6 hours as needed., Disp: , Rfl: ??? insulin glargine (LANTUS) [...] by mouth daily., Disp: , Rfl: ??? SUMAtriptan (IMITREX) 100 mg tablet, Take 100 mg by mouth once as needed for Migraine., Disp: ,Rfl: ??? tiZANidine (ZANAFLEX) 4 mg tablet, Take 4 mg by mouth 3 times daily. Take 11/2 tabs as needed, Disp: , Rfl: ??? tocopherol acetate (VITAMIN E) 400 unit Oral Capsule, Take 400 Units by mouth daily., Disp: , Rfl: ??? topiramate (TOPAMAX) 50 mg tablet, Take 50 mg by mouth 2 times daily., Disp: , Rfl: ALLERGIES Allergies Allergen Reactions ??? Advil [Ibuprofen] [...] Comments) seizures PHYSICAL EXAM VITAL SIGNS: BP 145/65 Pulse 81 Temp 99.8 ??F (37.7 ??C) (Oral) Resp 20 Ht 5' (1.524 m) Wt 151 lb (68.5 kg) SpO2 97% BMI 29.49 kg/m?? Constitutional: Well developed, Well nourished, No acute distress, Non-toxic appearance. HENT: Normocephalic, Atraumatic, Bilateral external ears normal, Oropharynx moist, No oral exudates, Nose normal. Eyes: PERRLA, EOMI, Conjunctiva normal, No discharge. Neck: Normal range of motion, No tenderness, Supple. Lymphatic: No lymphadenopathy noted. Cardiovascular: Normal heart rate, Normal rhythm, No murmurs. Thorax & Lungs: Normal breath sounds, No respiratory distress. Abdomen: Bowel sounds normal, Soft, No tenderness, No masses, No pulsatile masses. Skin: Warm, Dry, No erythema, No rash. Back: No tenderness, No CVA tenderness. Extremities: Intact distal pulses, No edema, No tenderness. Musculoskeletal: Good range of motion in all major joints. No tenderness to palpation or major deformities noted. Neurologic: Alert & oriented x 3, Normal motor function, Normal sensory function, No focal deficits noted. Cranial nerves intact. Psychiatric: Affect normal, Judgment normal, Mood normal. RADIOLOGY/PROCEDURES Results for orders placed or performed during the hospital encounter of 03/03/21 CORONAVIRUS 2019 Specimen: Nares; Swab Result Value Ref Range CORONAVIRUS [id number] Detected (A) Not Detected XR CHEST AP PORTABLE Narrative XR CHEST AP PORTABLE, 03/03/2021 3:54 PM CLINICAL HISTORY: -SHORTNESS OF BREATH COMPARISON: 12/29/2016 PROCEDURE COMMENTS: AP portable technique. FINDINGS: Cardiovascular structures within normal limits. No pneumonia or effusion. No pneumothorax. Extensive hardware from fusion in the thoracic spine noted. Impression No acute finding. - Note: Radiology results need to be interpreted within a comprehensive clinical context. If you have questions about the radiology report, please contact the office of the ordering clinician. CBC Result Value Ref Range WBC 7.4 3.7 - 10.3 x10(3)/mcL RBC 3.95 3.90 - 5.20 x10(6)/mcL Hgb 12.6 11.2 - 15.7 g/dL Hct 37.7 34.0 - 45.0 % MCV 95.4 80.0 - 100.0 fL MCH 31.9 26.0 - 34.0 pg MCHC 33.4 30.7 - 35.5 g/dL RDW 12.3 <=14.9 % Platelet 167 155 - 369 x10(3)/mcL MPV 10.6 8.8 - 12.5 fL BASIC METABOLIC PANEL Result Value Ref Range Sodium 137 136 - 145 mmol/L Potassium 3.9 3.5 - 5.0 mmol/L Chloride 105 98 - 107 mmol/L Total CO2 20 (L) 22 - 29 mmol/L Anion Gap 12 7 - 16 mmol/L Calcium 9.6 8.8 - 10.4 mg/dL Glucose Lvl 87 82 - 100 mg/dL BUN 32 (H) 8 - 23 mg/dL Creatinine 1.61 (H) 0.51 - 1.30 mg/dL GFR Afr Am 40 (L) >=60 mL/min/1.73 m2 GFR Non Afr Am 35 (L) >=60 mL/min/1.73 m2 COURSE & MEDICAL DECISION MAKING Pertinent Labs & Imaging studies reviewed. (See chart for details) Vitals: 03/03/21 1446 03/03/21 1454 BP: 145/65 Pulse: 98 81 Resp: (!) 24 20 Temp: (!) 101.5 ??F (38.6 ??C) 99.8 ??F (37.7 ??C) TempSrc: Skin Oral SpO2: 98% 97% Weight: 151 lb (68.5 kg) Height: 5' (1.524 m) Patient presents to the emergency department febrile with COVID-19 symptoms. Positive exposure at home. COVID-19 swab positive in the ED setting. Chest x-ray shows no evidence of pneumonia. Labs stable. Vital signs improved during ED encounter. Patient administered Tylenol and fever improved. No hypoxia. At this time, I recommend discharge home. Referral for monoclonal antibody infusion placed. Medication discussed with the patient. Patient provided prescriptions for Robitussin and Tylenol and discharged home with instructions to quarantine. FINAL IMPRESSION 1. COVID-19 Electronically signed by: This chart was completed using voice recognition technology and may contain unintended errors Noelle Porter APRN 03/03/21 1621 Cosigned by Gracy Ackerman MD at 03/03/2021 9:50 PM EDT Associated attestation - Gracy Ackerman MD - 03/03/2021 9:50 PM EDT This chart was completed using voice recognition technology and may contain unintended errors documented in this encounter Plan of Treatment Not on file documented as of this encounter Procedures Procedure Name Priority Date/Time Associated Diagnosis Comments XR CHEST AP PORTABLE JESSICA 03/03/2021 3:54 PM EDT CBC STAT 03/03/2021 3:37 PM EDT BASIC METABOLIC PANEL STAT 03/03/2021 3:37 PM EDT CORONAVIRUS 2019 Routine 03/03/2021 2:56 PM EDT documented in this encounter Results * XR CHEST AP PORTABLE (03/03/2021 3:54 PM EDT) Anatomical Region Laterality Modality Chest Radiographic Hailey ging 03/03/2021 3:54 PM EDT Impressions 03/03/2021 4:01 PM EDT No acute finding. - Note: Radiology results need to be interpreted within a comprehensive clinical context. ??If you have questions about the radiology report, please contact the office of the ordering clinician. Narrative 03/03/2021 4:01 PM EDT XR CHEST AP PORTABLE, ??03/03/2021 3:54 PM CLINICAL HISTORY: ??-SHORTNESS OF BREATH COMPARISON: ??12/29/2016 PROCEDURE COMMENTS: AP portable technique. FINDINGS: Cardiovascular structures within normal limits. ??No pneumonia or effusion. ??No pneumothorax. Extensive hardware from fusion in the thoracic spine noted. Procedure Note Manoj Dominguez MD - 03/03/2021 XR CHEST AP PORTABLE, 03/03/2021 3:54 PM CLINICAL HISTORY: -SHORTNESS OF BREATH COMPARISON: 12/29/2016 PROCEDURE COMMENTS: AP portable technique. FINDINGS: Cardiovascular structures within normal limits. No pneumoniaor effusion. No pneumothorax. Extensive hardware from fusion in the thoracicspine noted. IMPRESSION: No acute finding. - Note: Radiology results need to be interpreted within a comprehensiveclinical context. If you have questions about the radiology report, please contactthe office of the ordering clinician. Noelle Porter APRN IMG DIAGNOSTIC IMAGING ORDER [place] Final Result * (ABNORMAL) BASIC METABOLIC PANEL (03/03/2021 3:37 PM EDT) Sodium 137 136 - 145 mmol/L 03/03/2021 4:02 PM T [facility] Potassium 3.9 3.5 - 5.0 mmol/L 03/03/2021 4:02 PM T [facility] Chloride 105 98 - 107 mmol/L 03/03/2021 4:02 PM [facility] Total CO2 20(L) 22 - 29 mmol/L 03/03/2021 4:02 PM [facility] Anion Gap 12 7 - 16 mmol/L 03/03/2021 4:02 PM [facility] Calcium 9.6 8.8 - 10.4 mg/dL 03/03/2021 4:02 PM [facility] Glucose Lvl 87 82 - 100 mg/dL 03/03/2021 4:02 PM [facility] BUN 32(H) 8 - 23 mg/dL 03/03/2021 4:02 PM [facility] Creatinine 1.61(H) 0.51 - 1.30 mg/dL 03/03/2021 4:02 PM [facility] GFR Afr Am 40(L) >=60 mL/min/1.7 3 m2 03/03/2021 4:02 PM [facility] GFR Non Afr Am 35(L) >=60 mL/min/1.7 3 m2 03/03/2021 4:02 PM EDT [facility] Comment: This estimated GFR was calculated [...] VENOUS BLOOD / Unknown Venipuncture / Unknown 03/03/2021 3:37 PM EDT 03/03/2021 3:41 PM EDT Noelle Porter APRN CHEMISTRY ORDERABLES Final R esult [facility] [address] [place] [address] * CBC (03/03/2021 3:37 PM EDT) WBC 7.4 3.7 - 10.3 x10(3)/mcL 03/03/2021 3:44 PM EDT [facility] RBC 3.95 3.90 - 5.20 x10(6)/mcL 03/03/2021 3:44 PM EDT [facility] Hgb 12.6 11.2 - 15.7 g/dL 03/03/2021 3:44 PM EDT [facility] Hct 37.7 34.0 - 45.0 % 03/03/2021 3:44 PM EDT [facility] MCV 95.4 80.0 - 100.0 fL 03/03/2021 3:44 PM EDT [facility] MCH 31.9 26.0 - 34.0 pg 03/03/2021 3:44 PM EDT [facility] MCHC 33.4 30.7 - 35.5 g/dL 03/03/2021 3:44 PM EDT [facility] RDW 12.3 <=14.9 % 03/03/2021 3:44 PM EDT [facility] Platelet 167 155 - 369 x10(3)/mcL 03/03/2021 3:44 PM EDT [facility] MPV 10.6 8.8 - 12.5 fL 03/03/2021 3:44 PM EDT [facility] Blood VENOUS BLOOD / Unknown Venipuncture / Unknown 03/03/2021 3:37 PM EDT 03/03/2021 3:41 PM EDT Noelle Lit Porter APRN HEMATOLOGY ORDERABLES Final Result Performing Organization Address [facility] Co de Phone Number [facility] [address] [place] [address] * (ABNORMAL) CORONAVIRUS 2019 (03/03/2021 2:56 PM EDT) [facility] CORONAVIRUS [id number] Detected( A) Not Detected 03/03/2021 3:23 PM EDT [facility] Comment: This test is a real-time RT-PCR test intended for the qualitative detection of nucleic acid from the SARS-CoV-2 in upper respiratory samples collected from individuals suspected of COVID-19. Not Detected results do not preclude COVID-19 or other respiratory viruses and should not be used as the sole basis for treatment or other patient management decisions. TY Fact Sheet for Providers and Patients: TY Fact Sheet for Providers: https://www.fda.gov/media/479169/download TY Fact Sheet for Patients: https://www.fda.gov/media/750470/download Test is performed on the [employer] TY platform under the FDA's Emergency Use Authorization (EUA). Performed at [facility] [address] [place] [address] CLIA ??[id number] Swab BOTH ANTERIOR NARES / Unknown 03/03/2021 2:56 PM EDT 03/03/2021 3:01 PM EDT Noelle Porter APRN MICROBIOLOGY - GENERAL ORDER [place]RRAEL Final Result Performing Organization Address [facility]/ZIP Co de Phone Number [facility] [address] [place] [address] documented in this encounter Visit Diagnoses Diagnosis COVID-19- Primary documented in this encounter Administered Medications Inactive Administered Medications - up to 1 most recent administrations Medication Order MAR Action Action Date Dose Rate Site acetaminophen (TYLENOL) tablet 650 mg 650 mg, Oral, ONCE, 1 dose, On 03/03/21 at 1530, Maximum adult dose of acetaminophen is 4000 mg from all sources in 24 hours. Given 03/03/2021 3:27 PM EDT 650 mg documented in this encounter Active and Recently Administered Medications Times are shown in EDT. Scheduled Medication Order 03/01/2021 03/02/2021 03/03/2021 acetaminophen (TYLENOL) tablet 650 mg (COMPLETED) 650 mg, Oral, ONCE, 1 dose, On 03/03/21 at 1530, Maximum adult dose of acetaminophen is 4000 mg from all sources in 24 hours. 1527 (Given - Provid er: Brenda Joseph RN) documented in this encounter Orders Medications Ordered That Marco ht Not Have Been Administered Count Last Ordered Date First Ordered Date acetaminophen (TYLENOL) tablet 650 mg 1 Nursing Count Last Ordered Date First Orde red Date AMB PATIENT TO RECEIVE COVID ANTIVIRAL MONOCLONAL ANTIBODY IN 1 03/03/2021 documented in this encounter Additional Health Concerns Infection Onset Date Last Indicated Resolved Time R/O COVID-19 03/03/2021 03/03/2021 03/03/2021 3:23 PM EDT COVID-19 03/03/2021 03/03/2021 04/02/2021 10:1 2 PM EDT documented as of this encounter Care Teams Assembler [employer] Relationship Specialty Start Date End Date Lupillo Garcia MD PCP - General Family Medicine 11/10/12 documented as of this encounter
--- OUTSIDE RECORDS SUMMARY | 2024-06-22 10:21 | XMS_ITS | Encounter Summary ---
Author Organization [place] [address] Care Team Providers Care Free Lance Artist Name Role Phone Lupillo Garcia MD Primary Care Provider [phone]- [phone] Encounter Details Date Type Department Care Team (Latest Contact Info) Description 03/05/2021 10:11 AM EDT - 03/05/2021 10:29 AM EDT Hospital Encounter [facility] [address] [id number] Discharge Disposition: Home or Self Care Social [...] Sign Reading Time Taken Comments Blood Pressure 58/31 03/05/2021 10:11 AM EDT Pulse 57 03/05/2021 10:11 AM EDT Temperature - - Respiratory Rate 18 03/05/2021 10:11 AM EDT Oxygen Saturation 98% 03/05/2021 10:11 AM EDT Inhaled Oxygen Concentration - - Weight 68.5 kg (151 lb) 03/05/2021 10:11 AM EDT Height - - Body Mass Index 29.49 03/03/2021 2:46 PM EDT documented in this encounter Medications at Time [...] 4 hours as needed for Pain. 1 dexAMETHasone (DECADRON) 6 mg Oral Tablet Take 1 Tablet by mouth every 24 hours for 5 doses. 5 Tablet 03/14/2021 1 guaiFENesin (ROBITUSSIN) 100 mg/5 mL Oral Liquid 200-400 mg every 4 hours as needed for cough 236 mL 03/03/2021 1 lisinopriL (PRINIVIL;ZESTRIL ) 2.5 mg Oral Tablet Take by mouth daily. 1 potassium chloride 20 mEq Oral Tablet Sustained Release Take 40 mEq by mouth 2 times daily (with meals) for 3 doses. 2 Tablet 03/13/2021 1 spironolactone (ALDACTONE) 50 mg Oral Tablet [...] documented as of this encounter Care Teams Free Lance Artist Relationship Specialty Start Date End Date Lupillo Garcia MD PCP - General Family Medicine 11/10/12 documented as of this encounter
--- OUTSIDE RECORDS SUMMARY | 2024-06-22 10:21 | XMS_ITS | Encounter Summary ---
Author Organization [facility] [place] [address] Care Team Providers Care Special Client Bus Driver Name Role Phone Lupillo Garcia MD Primary Care Provider +1- [phone] Encounter Details Date Type Department Care Team (Latest Contact Info) Description 10/27/2020 Travel Social History Tobacco Use Types Packs/Day [...] AM EDT documented as of this encounter Plan of Treatment Not on file documented as of this encounter Visit Diagnoses Not on filedocumented in this encounter Care Teams Special Client Bus Driver Relationship Specialty Start Date End Date Lupillo Garcia MD PCP - General Family Medicine 11/10/12 documented as of this encounter
--- OUTSIDE RECORDS SUMMARY | 2024-06-22 10:21 | XMS_ITS | Encounter Summary ---
Author Organization [place] [address] Care Team Providers Care Injection Wax Molder Name Role Phone Lupillo Garcia MD Primary Care Provider [phone] Reason for Visit * Reason Comments Covid Follow Up from [facility]. hypotensive 60s/30s patient has generalized weakness cannot stand up on own at arrival * Auth/Cert/Inpt Specialty Diagnoses / Procedures Referred By Artis t Referred To Contact Diagnoses COVID-19 covid-19 Referral ID Status Reason Start Date Expiration Date Visits Re quested Visits Authorized [id number] 1 1 Encounter Details Date Type Department Care Team (Late st Contact Info) Description 03/05/2021 10:30 AM EDT - 03/05/2021 5:10 PM EDT Emergency [facility] [address] [facility] [place] [address] Chavo Parkinson MD [address] [place] [address] Caroline Quintanilla MD COVID-19 virus infection (Primary Dx); Acute kidney injury (HCC); Nausea vomiting and diarrhea; Hypotension, unspecified hypotension type Discharge Disposition: Short Term Hospital Social History Tobacco Use Types Packs/Day Years [...] Sign Reading Time Taken Comments Blood Pressure 151/93 03/05/2021 5:01 PM EDT Pulse 73 03/05/2021 5:01 PM EDT Temperature 36.9 ??C (98.4 ??F) 03/05/2021 10:31 AM E DT Respiratory Rate 19 03/05/2021 5:01 PM EDT Oxygen Saturation 99% 03/05/2021 4:46 PM EDT Inhaled Oxygen Concentration - - Weight 68.5 kg (151 lb) 03/05/2021 10:47 AM EDT Height - - Body Mass [...] mg by mouth 3 times daily. Take 11/ tabs as needed tocopherol acetate (VITAMIN E) [...] Discharge Disposition Disposition Code Departure Means Destination [facility] documented in this encounter ED Notes * Chavo Parkinson MD - 03/05/2021 10:29 AM EDT Chief Complaint Patient presents with ??? Covid Follow Up from [facility] infusion center. hypotensive 60s/30s patient has generalized weakness cannot stand up onown at arrival History provided by: Patient 60 y.o. female with history of asthma, [...] She has not been vaccinated. Covid test was positive and chest x-ray was clear. CBC and BMP unremarkable. No hypoxia. She was referred for monoclonal antibody treatment. Pt complains of increased dizziness and generalized weakness since yesterday. She has had too numerous to count episodes of non-bloody diarrhea, poor appetite, minimal PO intake. She went for infusion today and was sent to the ED for hypotension. She has ongoing chest pain described as discomfort- sometimes 10/10 in intensity. There is mild abdominal cramping with diarrhea but no significant abdominal pain. Patient History Allergies Allergen Reactions ??? Advil [Ibuprofen] Other [...] Zofran Odt [Ondansetron] Other (See Comments) seizures Home Medications: Prior to Admission medications Medication Sig Start [...] by mouth 2 times daily. Provider, Historical Past 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: Past 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: Diagnosis Date ??? Asthma ??? Depression ??? Diabetes mellitus (HCC) ??? Encounter for blood transfusion ??? Headache(784.0) ??? Heart murmur ??? Heartburn ??? Syncope and collapse ??? Unspecified sleep apnea no machine Social History: reports that she has never smoked. She has never used smokeless tobacco. She reports that she does not drink alcohol and does not use drugs. E-Cigarettes (such as Vapes or Juul) Family History: No family history on file. Surgical History: Past Surgical History: Procedure Laterality Date ??? BACK SURGERY ??? FOOT SURGERY right x2 left x1 ??? HAND SURGERY LCTR left trigger finger ??? HIATAL HERNIA REPAIR x3 ??? HYSTERECTOMY ??? KNEE ARTHROSCOPY Left 08/19/2013 Left Knee Arthroscopy Partial Medial Meniscectomy Chondrplasty Patella Femoral condyle; Surgeon: Alexander Whittington MD; Location: [facility] MAIN OR; Service: Orthopedics ??? KNEE SURGERY right knee scope Review of Systems Review of Systems Constitutional: Negative for chills and fever. HENT: Negative. Eyes: Negative. Respiratory: Positive for cough and shortness of breath. Cardiovascular: Negative for chest pain, palpitations and leg swelling. Gastrointestinal: Positive for diarrhea, nausea and vomiting. Negative for abdominal pain. Genitourinary: Negative for dysuria and frequency. Musculoskeletal: Negative. Skin: Negative for rash. Neurological: Positive for weakness. Psychiatric/Behavioral: Negative. All other systems reviewed and are negative. Physical Exam Blood pressure (!) 60/48, pulse 58, temperature 98.4 ??F (36.9 ??C), resp. rate 12, SpO2 100 %, notcurrently . Physical Exam Vitals and nursing note reviewed. Constitutional: General: She is not in acute distress. Appearance: She is well-developed. HENT: Head: Normocephalic and atraumatic. Mouth/Throat: Comments: Very dry mucous membranes Eyes: Conjunctiva/sclera: Conjunctivae normal. Cardiovascular: Rate and Rhythm: Regular rhythm. Bradycardia present. Pulmonary: Effort: Pulmonary effort is normal. No respiratory distress. Breath sounds: Normal breath sounds. Comments: No wheezing, rhonchi, rales Abdominal: General: There is no distension. Palpations: Abdomen is soft. Musculoskeletal: Cervical back: Neck supple. Comments: No calf tenderness, no edema, no palpable cord. Skin: General: Skin is warm and dry. Findings: No rash. Neurological: Mental Status: She is alert and oriented to person, place, and time. Procedures Central Line Placement Procedure Note Indication: centrally administered medications Consent: The patient provided verbal consent for this procedure. Timeout performed per policy and procedure. Procedure: The patient was positioned appropriately and the skin over the right internal jugular vein was prepped with Chloraprep and draped in a sterile fashion. Local anesthesia was obtained by infiltration using 1% Lidocaine without epinephrine. A large bore needle was used to identify the vein.A guide wire was then inserted into the vein through the needle. A triple lumen catheter was then inserted into the vessel over the guide wire using the Seldinger technique. All ports showed good, free flowing blood return and were flushed with saline solution. The catheter was then securely fastened to the skin with sutures and with an adhesive dressing and covered with a sterile dressing. A post procedure X-ray was ordered and showed good line position. The patient tolerated the procedure well. Complications: None Radiology/EKG/Labs: Results for orders placed or performed during the hospital encounter of 03/05/21 BLOOD CULTURE (NO STAIN) Specimen: Blood, Venous Result Value Ref Range Culture Result Blood culture received for processing in the laboratory. Positives will be reported immediately. BLOOD CULTURE (NO STAIN) Specimen: Blood, Venous Result Value Ref Range Culture Result Blood culture received for processing in the laboratory. Positives will be reported immediately. XR CHEST AP PORTABLE Narrative XR CHEST AP PORTABLE, 03/05/2021 11:42 AM CLINICAL HISTORY: -COVID FOLLOW UP COMPARISON: 03/03/2021. PROCEDURE COMMENTS: AP portable technique. FINDINGS: Lung volumes are low. Cardiovascular structures within normal limits. No pneumonia or effusion. No pneumothorax. Hardware related prior thoracic spinal fusion surgery redemonstrated. The Impression No acute finding. - Note: Radiology results need to be interpreted within a comprehensive clinical context. If you have questions about the radiology report, please contact the office of the ordering clinician. XR CHEST AP PORTABLE Narrative XR CHEST AP PORTABLE, 03/05/2021 2:25 PM CLINICAL HISTORY: -Central line placement COMPARISON: Study earlier today PROCEDURE COMMENTS: AP portable technique. FINDINGS: New right jugular central line with tip near cavoatrial junction. No evidence pneumothorax. Heart size upper normal but stable. Lungs remain clear. Spinal surgical hardware unchanged. Impression Status post right jugular central line placement without radiographic evidence of complication. - Note: Radiology results need to be interpreted within a comprehensive clinical context. If you have questions about the radiology report, please contact the office of the ordering clinician. CBC WITH DIFF Result Value Ref Range WBC 10.1 3.7 - 10.3 x10(3)/mcL RBC 3.79 (L) 3.90 - 5.20 x10(6)/mcL Hgb 12.0 11.2 - 15.7 g/dL Hct 36.5 34.0 - 45.0 % MCV 96.3 80.0 - 100.0 fL MCH 31.7 26.0 - 34.0 pg MCHC 32.9 30.7 - 35.5 g/dL RDW 12.4 <=14.9 % Platelet 158 155 - 369 x10(3)/mcL MPV 11.0 8.8 - 12.5 fL Neut Percent 73.7 % Imm Gran% 0.3 % Lymph Percent 20.9 % [place] Percent 4.9 % Eos Percent 0.0 % Baso Percent 0.2 % Neut # 7.5 (H) 1.6 - 6.1 x10(3)/mcL IMMGRAN# 0.0 0.0 - 0.1 x10(3)/mcL Lymph # 2.1 1.2 - 3.9 x10(3)/mcL [place] # 0.5 0.3 - 0.9 x10(3)/mcL Eos# 0.0 0.0 - 0.5 x10(3)/mcL Baso # 0.0 0.0 - 0.1 x10(3)/mcL COMPREHENSIVE METABOLIC PANEL Result Value Ref Range Sodium 136 136 - 145 mmol/L Potassium 4.0 3.5 - 5.0 mmol/L Chloride 100 98 - 107 mmol/L Total CO2 16 (L) 22 - 29 mmol/L Anion Gap 20 (H) 7 - 16 mmol/L Calcium 9.2 8.8 - 10.4 mg/dL Glucose Lvl 146 (H) 82 - 100 mg/dL BUN 49 (H) 8 - 23 mg/dL Creatinine 3.46 (H) 0.51 - 1.30 mg/dL Albumin 4.4 3.2 - 4.6 gm/dL Total Protein 8.0 6.4 - 8.3 gm/dL Bili Total 0.3 0.1 - 1.3 mg/dL ALT 23 <=41 U/L AST 43 (H) <=40 U/L Alk Phos 71 36 - 123 U/L GFR Afr Am 16 (L) >=60 mL/min/1.73 m2 GFR Non Afr Am 14 (L) >=60 mL/min/1.73 m2 LACTIC ACID Result Value Ref Range Lactic Acid 1.5 0.5 - 1.9 mmol/L PROCALCITONIN Result Value Ref Range Procalcitonin 2.51 (H) <=0.49 ng/mL Narrative Procalcitonin <0.50 ng/mL: Procalcitonin levels below 0.50 ng/mL on the first day of ICU admission represent a low risk for progression to severe sepsis and/or septic shock Procalcitonin >=0.50 ng/mL and <=2.00 ng/mL: If the procalcitonin measurement is performed shortly after the systemic infection process has started (usually less than 6 hours), this value may still be low. As various non-infectious conditions are known to induce procalcitonin as well, procalcitonin levels between 0.50 ng/mL and 2.00 ng/mL should be reviewed carefully to take into account the specific clinical background and condition(s) of the patient. Procalcitonin >2.00 ng/mL: Procalcitonin levels above 2.00 ng/mL on the first day of ICU admission represent a high risk for progression to severe sepsis and/or septic shock. BLOOD GAS, VENOUS Result Value Ref Range pH Venous 7.27 (L) 7.32 - 7.42 pH pCO2 Venous 37 (L) 41 - 51 mmHg pO2 Venous <42 (H) 25 - 40 mmHg Base Excess Tarik -9.6 mmol/L Hco3 Venous 16.7 (L) 24.0 - 28.0 mmol/L CO2 Total Tarik 16 (L) 25 - 29 mmol/L O2 Sat. Venous 66.5 40.0 - 70.0 % URINALYSIS Result Value Ref Range UA Color Yellow UA Appear Clear Clear UA Glucose Negative Negative mg/dL UA Ketones Negative Negative mg/dL UA Blood Small (A) Negative UA pH 5.5 5.0 - 8.0 pH UA Protein Trace (A) Negative mg/dL UA Urobilinogen 0.2 <=1 mg/dL UA Bili Negative Negative UA Nitrite Negative Negative UA Leuk Est Negative Negative UA Spec Grav 1.010 1.001 - 1.035 no units UA WBC 1 0 - 4 /HPF UA RBC 1 0 - 3 /HPF UA Squam Epi 2+ /LPF UA Mucus 2+ /LPF UA Amorph 1+ /LPF UA Hyal Cast 1 0 - 2 /LPF UA Gran Cast 1 (H) <=0 /LPF TROPONIN-T HIGH SENSITIVITY BASELINE W/ REFLEX Result Value Ref Range bo-uWwargwzs-V 50 (H) <14 ng/L Narrative Ingestion of isadora doses of biotin (>5 mg/day) taken within 8 hours of drawing blood sample can interfere with this immunoassay test. TROPONIN-T HIGH SENSITIVITY 2HR Result Value Ref Range kw-gOxpnxgye-M 2HR 32 (H) <14 ng/L hs-cTnT 2Hr Delta from Baseline -18 <4 ng/L Narrative Ingestion of isadora doses of biotin (>5 mg/day) taken within 8 hours of drawing blood sample can interfere with this immunoassay test. EXTRA TUBES PANEL Narrative The following orders were created for panel order EXTRA TUBES PANEL. Procedure Abnormality Status --------- ------ EXTRA LIGHT BLUE[[id number]] Final result EXTRA LAVENDER[[id number]] Final result EXTRA GOLD SST[[id number]] Final result Please view results for these tests on the individual orders. CREATINE KINASE Result Value Ref Range CK 319 (H) 26 - 192 U/L GLUCOSE METER POC Result Value Ref Range Glucose Meter POC 135 (H) 70 - 100 mg/dL Sample Type Capillary Patient Status Non-Critical Patient EK EKG [address] [facility] Test Date: 2021-03-05 Pat Name: TYRA GRCEO Department: [facility] Room: 01 Gender: Female Toe Puncher: Sw9 : 1960 Requested By: CHAVO Guzmán Order Number: [id number] Reading MD: Gume Thompson MD Measurements Intervals [place] Rate: 58 P: 16 RI: 145 QRS: 18 QRSD: 86 T: 48 QT: 424 QTc: 419 Interpretive Statements SINUS RHYTHM RATE 58 NORMAL ECG SIMILAR TO 12/30/16 Electronically Signed On 03-05-2021 13:26:37 EDT by Gume Thompson MD EKG Interpretation Interpreted by Chavo Parkinson MD Rhythm: sinus bradycardia Rate: 58 [place]: normal Ectopy: none Conduction: normal ST Segments: no acute change T Waves: no acute change Q Waves: none Clinical Impression: sinus bradycardia and no acute ischemic changes compared to 12/30/2016 ED Course: Appropriate laboratory and radiology studies reviewed Discussed results with the patient. She presents with hypotension from the infusion center in the context of known COVID-19 and associated diarrhea and poor oral intake. She appears quite dry on exam. Initial blood pressure okay at 111/90, but subsequent ones all very low with systolic in the 60s. She is given IV fluids per sepsis protocol. UA without evidence of infection. CBC without leukocytosis or anemia. CMP was significant acute kidney injury. Her baseline creatinine is 1.28-1.5. it was 1.61 2 days ago and today it is 3.46 with BUN of 49. I suspect prerenal etiology. Lactic acid is not elevated. Pro-calcitonin is mildly elevated. Initial troponin is elevated at 50, which may be related to the acute kidney injury. Repeat is improving. There is not evidence of ACS. CK is just mildly elevated, but not to a level concerning for rhabdomyolysis. Chest x- rays without acute findings and patient is not in any respiratory distress. O2 saturation is normal on room air. Her hypotension was not fluid responsive. She was given a total of 3 L normal saline in the ED and remained hypotensive so right IJ central line was placed and she is started on Levophed with improvement of her blood pressure. Patient will be admitted for further treatment for her acute kidney injury and dehydration inthe context of COVID-19. There are not ICU beds at [facility] so she will be admitted to [facility]. Hospitalist notified and agreed to admit. Awaiting EMS transport. Patient is in stable condition. ED Clinical Impression: 1. COVID-19 virus infection 2. Acute kidney injury (HCC) 3. Nausea vomiting and diarrhea Critical Care time N/A Condition at Discharge/Transfer from Department: Stable Chavo Hooper MD, personally performed the services described in this documentation, as scribedbyRizwan, in my presence and it is accurate and complete. Rizwan oHoper Scribe, am scribing for and in the presence of Chavo Lawrence MD. This chart was completed using voice recognition technology and may contain unintended errors Rizwan Thornton Scribe 03/05/21 1057 Chavo Parkinson MD 03/05/21 1926 documented in this encounter Plan of Treatment Pending Results Name Type Priority Associated Diagnoses Date /Time ECG AND WAVEFORMS - TELEMETRY Point of Care Testing Routine 03/05/2021 10:34 PM EDT documented as of this encounter Procedures Procedure Name Priority Date/Time Associated Diagnosis Comments SCANNED EKG 03/06/2021 6:18 PM EDT ECG AND WAVEFORMS - TELEMETRY Routine 03/05/2021 10:34 PM EDT XR CHEST AP PORTABLE JESSICA 03/05/2021 2:25 PM EDT ADMIT Routine 03/05/2021 2:21 PM EDT URINALYSIS STAT 03/05/2021 1:35 PM EDT URINE CULTURE (NO STAIN) STAT 03/05/2021 1:35 PM EDT BLOOD CULTURE (NO STAIN) STAT 03/05/2021 1:26 PM EDT TROPONIN-T HIGH SENSITIVITY 2HR Timed 03/05/2021 1:19 PM EDT ADMIT STAT 03/05/2021 1:07 PM EDT XR CHEST AP PORTABLE JESSICA 03/05/2021 11:42 AM EDT SALINE LOCK IV STAT 03/05/2021 10:46 AM EDT TROPONIN-T HIGH SENSITIVITY BASELINE W/ REFLEX STAT 03/05/2021 10:45 AM EDT BLOOD GAS, VENOUS STAT 03/05/2021 10: 45 AM EDT EXTRA TUBES PANEL Routine 03/05/2021 10: 45 AM EDT EXTRA GOLD SST Routine 03/05/2021 10:45 AM EDT EXTRA LAVENDER Routine 03/05/2021 10:45 AM EDT EXTRA LIGHT BLUE Routine 03/05/2021 10:4 5 AM EDT PROCALCITONIN STAT 03/05/2021 10:45 AM EDT BLOOD CULTURE (NO STAIN) STAT 03/05/2021 10:45 AM EDT CBC WITH DIFF STAT 03/05/2021 10:45 AM EDT LACTIC ACID STAT 03/05/2021 10:45 AM EDT CREATINE KINASE Add-On 03/05/2021 10:45 AM EDT COMPREHENSIVE METABOLIC PANEL STAT 03/05/2021 10:45 AM EDT GLUCOSE METER POC Routine 03/05/2021 10: 36 AM EDT EK EKG 12 LEAD STAT 03/05/2021 10:33 AM EDT documented in this encounter Results * SCANNED EKG (03/06/2021 6:18 PM EDT) Anatomical Region Laterality Modality Other 03/06/2021 6:18 PM EDT us Unknown Provider IMG ECG ORDERABLES Final Result * XR CHEST AP PORTABLE (03/05/2021 2:25 PM EDT) Anatomical Region Laterality Modality Chest Radiographic Hailey ging 03/05/2021 2:25 PM EDT Impressions 03/05/2021 2:34 PM EDT Status post right jugular central line placement without radiographic evidence of complication. - Note: Radiology results need to be interpreted within a comprehensive clinical context. ??If you have questions about the radiology report, please contact the office of the ordering clinician. Narrative 03/05/2021 2:34 PM EDT XR CHEST AP PORTABLE, ??03/05/2021 2:25 PM CLINICAL HISTORY: ??-Central line placement COMPARISON: ??Study earlier today PROCEDURE COMMENTS: AP portable technique. FINDINGS: New right jugular central line with tip near cavoatrial junction. No evidence pneumothorax. Heart size upper normal but stable. Lungs remain clear. Spinal surgical hardware unchanged. Procedure Note Silverio Suazo MD - 03/05/2021 XR CHEST AP PORTABLE, 03/05/2021 2:25 PM CLINICAL HISTORY: -Central line placement COMPARISON: Study earlier today PROCEDURE COMMENTS: AP portable technique. FINDINGS: New right jugular central line with tip near cavoatrialjunction. No evidence pneumothorax. Heart size upper normal but stable. Lungs remain clear. Spinal surgical hardware unchanged. IMPRESSION: Status post right jugular central line placement without radiographic evidence of complication. - Note: Radiology results need to be interpreted within a comprehensiveclinical context. If you have questions about the radiology report, please contactthe office of the ordering clinician. Chavo Parkinson MD IMG DIAGNOSTIC IMAGING ORDERABL ES Final Result * URINE CULTURE (NO STAIN) (03/05/2021 1:35 PM EDT) Culture No growth at 30 hours. 03/06/2021 10:53 PM EDT [facility] Urine URINE SPECIMEN OBTAINED VIA INDWELLING URINARY CATHETER / Unknown 03/05/2021 1:35 PM EDT 03/05/2021 1:55 PM EDT Chavo Parkinson MD MICROBIOLOGY - GENERAL ORDERABL ES Final Result [facility] [address] , [place] [address] * (ABNORMAL) URINALYSIS (03/05/2021 1:35 PM EDT) UA Color Yellow 03/05/2021 2:16 PM EDT [facility] UA Appear Clear Clear 03/05/2021 2:16 PM EDT [facility] UA Glucose Negative Negative mg/dL 03/05/2021 2:16 PM EDT [facility] UA Ketones Negative Negative mg/dL 03/05/2021 2:16 PM EDT [facility] UA Blood Small(A) Negative 03/05/2021 2:16 PM EDT [facility] UA pH 5.5 5.0 - 8.0 pH 03/05/2021 2:16 PM EDT [facility] UA Protein Trace(A) Negative mg/dL 03/05/2021 2:16 PM EDT [facility] UA Urobilinogen 0.2 <=1 mg/dL 2:16 PM EDT [facility] UA Bili Negative Negative 03/05/2021 2:16 PM EDT [facility] UA Nitrite Negative Negative 03/05/2021 2:16 PM EDT [facility] UA Leuk Est Negative Negative 03/05/2021 2:16 PM EDT [facility] UA Spec Grav 1.010 1.001 - 1.035 no units 03/05/2021 2:16 PM EDT [facility] Comment:Reference range felipe d for random specimens only. UA WBC 1 0 - 4 /HPF 03/05/2021 2:16 PM EDT [facility] UA RBC 1 0 - 3 /HPF 03/05/2021 2:16 PM EDT [facility] UA Squam Epi 2+ /LPF 03/05/2021 2:16 PM EDT [facility] UA Mucus 2+ /LPF 03/05/2021 2:16 PM EDT [facility] UA Amorph 1+ /LPF 03/05/2021 2:16 PM EDT [facility] UA Hyal Cast 1 0 - 2 /LPF 03/05/2021 2:16 PM EDT [facility] UA Gran Cast 1(H) <=0 /LPF 03/05/2021 2:16 PM EDT [facility] Urine URINE SPECIMEN OBTAINED VIA INDWELLING URINARY CATHETER / Unknown 03/05/2021 1:35 PM EDT 03/05/2021 1:55 PM EDT Chavo Parkinson MD URINE ORDERABLES Final Result Performing Organization Address City/[facility]/ZIP Co de Phone Number [facility] [address] [place] [address] * BLOOD CULTURE (NO STAIN) (03/05/2021 1:26 PM EDT) Culture Result No Growth at 120 hours. BLOOD CULTURE (NO STAIN) 03/10/2021 5:01 PM EDT [facility] Blood VENOUS BLOOD / Unknown Venipuncture / Unknown 03/05/2021 1:26 PM EDT 03/05/2021 1:26 PM EDT Chavo Parkinson MD MICROBIOLOGY - GENERAL ORDERABL ES Final Result Performing Organization Address [facility] Co de Phone Number [facility] [address] [place] [address] , [place] [address] * (ABNORMAL) TROPONIN-T HIGH SENSITIVITY 2HR (03/05/2021 1:19 PM EDT) rs-kCpsonemq-V 2HR 32(H) <14 ng/L 03/05/2021 2:17 PM EDT [facility] Comment:See the website belo Prior Knowledge for rule out [place] care pathway, conditions other than AMI that can cause elevated hs cTnT, and comparison of values from the 4th and 5th generation Vince tests. [email or web address]/clinical-answers/[email or web address]/cpm-[email or web address] 47559 hs-cTnT 2Hr Delta from Baseline -18 <4 ng/L 03/05/2021 2:17 PM EDT [facility] Blood VENOUS BLOOD / Unknown Venipuncture / Unknown 03/05/2021 1:19 PM EDT 03/05/2021 1:55 PM EDT Narrative [facility] - 03/05/2021 2:17 PM EDT Ingestion of isadora doses of biotin (>5 mg/day) taken within 8 hours of drawing blood sample can interfere with this immunoassay test. Chavo Parkinson MD CHEMISTRY ORDERABLES Final Resu lt [facility] [address] [facility] [place] [address] * XR CHEST AP PORTABLE (03/05/2021 11:42 AM EDT) Anatomical Region Laterality Modality Chest Radiographic Hailey ging 03/05/2021 11:4 2 AM EDT Impressions 03/05/2021 11:48 AM EDT No acute finding. - Note: Radiology results need to be interpreted within a comprehensive clinical context. ??If you have questions about the radiology report, please contact the office of the ordering clinician. Narrative 03/05/2021 11:48 AM EDT XR CHEST AP PORTABLE, ??03/05/2021 11:42 AM CLINICAL HISTORY: ??-COVID FOLLOW UP COMPARISON: ??03/03/2021. PROCEDURE COMMENTS: AP portable technique. FINDINGS: Lung volumes are low. Cardiovascular structures within normal limits. No pneumonia or effusion. ??No pneumothorax. Hardware related prior thoracic spinal fusion surgery redemonstrated. The Procedure Note Manoj Lane MD - 03/05/2021 XR CHEST AP PORTABLE, 03/05/2021 11:42 AM CLINICAL HISTORY: -COVID FOLLOW UP COMPARISON: 03/03/2021. PROCEDURE COMMENTS: AP portable technique. FINDINGS: Lung volumes are low. Cardiovascular structures within normallimits. No pneumonia or effusion. No pneumothorax. Hardware related priorthoracic spinal fusion surgery redemonstrated. The IMPRESSION: No acute finding. - Note: Radiology results need to be interpreted within a comprehensiveclinical context. If you have questions about the radiology report, please contactthe office of the ordering clinician. Chavo Parkinson MD IMG DIAGNOSTIC IMAGING ORDERABL ES Final Result * (ABNORMAL) CREATINE KINASE (03/05/2021 10:45 AM EDT) CK 319(H) 26 - 192 U/L 03/05/2021 2:14 PM EDT [facility] Blood VENOUS BLOOD / Unknown Venipuncture / Unknown 03/05/2021 10:45 AM EDT 03/05/2021 10:57 AM EDT Chavo Parkinson MD CHEMISTRY ORDERABLES Final Resu lt Performing Organization Address [facility] Co de Phone Number [facility] [address] [place] [address] * EXTRA GOLD SST (03/05/2021 10:45 AM EDT) Blood VENOUS BLOOD / Unknown Venipuncture / Unknown 03/05/2021 10:45 AM EDT 03/05/2021 11:01 AM EDT Chavo Parkinson MD CHEMISTRY ORDERABLES Final Resu lt Performing Organization Address City/[facility] Co de Phone Number [facility] [address] [place] [address] * EXTRA LAVENDER (03/05/2021 10:45 AM EDT) Blood VENOUS BLOOD / Unknown Venipuncture / Unknown 03/05/2021 10:45 AM EDT 03/05/2021 11:01 AM EDT Chavo Parkinson MD HEMATOLOGY ORDERABLES Final Res ult Performing Organization Address [facility] Co de Phone Number [facility] [address] [place] [address] * EXTRA LIGHT BLUE (03/05/2021 10:45 AM EDT) Blood VENOUS BLOOD / Unknown Venipuncture / Unknown 03/05/2021 10:45 AM EDT 03/05/2021 11:01 AM EDT Chavo Parkinson MD HEMATOLOGY ORDERABLES Final Res ult Performing Organization Address [facility] de Phone Number [facility] [address] [place] [address] * (ABNORMAL) TROPONIN-T HIGH SENSITIVITY BASELINE W/ REFLEX (03/05/2021 10:45 AM EDT) fw-aPotwgfkh-F 50(H) <14 ng/L 03/05/2021 11:25 AM EDT [facility] Comment:See the website ustyme Prior Knowledge for rule out [place] care pathway, conditions other than AMI that can cause elevated hs cTnT, and comparison of values from the 4th and 5th generation Vince tests. [email or web address]/[email or web address]-[email or web address] Blood VENOUS BLOOD / Unknown Venipuncture / Unknown 03/05/2021 10:45 AM EDT 03/05/2021 10:57 AM EDT Narrative [facility] - 03/05/2021 11:25 AM EDT Ingestion of isadora doses of biotin (>5 mg/day) taken within 8 hours of drawing blood sample can interfere with this immunoassay test. Chavo Parkinson MD CHEMISTRY ORDERABLES Final Resu lt Performing Organization Address [facility] de Phone Number [facility] [address] [place] [address] * (ABNORMAL) BLOOD GAS, VENOUS (03/05/2021 10:45 AM EDT) pH Venous 7.27(L) 7.32 - 7.42 pH 03/05/2021 10:58 AM EDT [facility] pCO2 Venous 37(L) 41 - 51 mmHg 03/05/2021 10:58 AM EDT [facility] pO2 Venous <42(H) 25 - 40 mmHg 03/05/2021 10:58 AM EDT [facility] Comment:The peripheral venou s blood gas oxygen level (PvO2) is not clinically useful and PvO2 levels <42 mmHg in venous blood gases are below the analytical measuring range for our blood gas instrumentation. Base Excess Tarik -9.6 mmol/L 10:58 AM EDT [facility] Hco3 Venous 16.7(L) 24.0 - 28.0 mmol/L 03/05/2021 10:58 AM EDT [facility] CO2 Total Tarik 16(L) 25 - 29 mmol/L 03/05/2021 10:58 AM EDT [facility] O2 Sat. Venous 66.5 40.0 - 70.0 % 03/05/2021 10:58 AM EDT [facility] Blood VENOUS BLOOD / Unknown Venipuncture / Unknown 03/05/2021 10:45 AM EDT 03/05/2021 10:55 AM EDT us Chavo Parkinson MD CHEMISTRY ORDERABLES Final Resu lt [facility] [address] [place] [address] * (ABNORMAL) PROCALCITONIN (03/05/2021 10:45 AM EDT) Procalcitonin 2.51(H) <=0.49 ng/mL 03/05/2021 11:30 AM EDT [facility] Blood VENOUS BLOOD / Unknown Venipuncture / Unknown 03/05/2021 10:45 AM EDT 03/05/2021 10:57 AM EDT Narrative [facility] - 03/05/2021 11:30 AM EDT Procalcitonin <0.50 ng/mL: Procalcitonin levels below 0.50 ng/mL on the first day of ICU admission represent a low risk for progression to severe sepsis and/or septic shock Procalcitonin >=0.50 ng/mL and <=2.00 ng/mL: If the procalcitonin measurement is performed shortly after the systemic infection process has started (usually less than 6 hours), this value may still be low. ??As various non-infectious conditions are known to induce procalcitonin as well, procalcitonin levels between 0.50 ng/mL and 2.00 ng/mL should be reviewed carefully to take into account the specific clinical background and condition(s) of the patient. Procalcitonin >2.00 ng/mL: Procalcitonin levels above 2.00 ng/mL on the first day of ICU admission represent a high risk for progression to severe sepsis and/or septic shock. us Chavo Parkinson MD CHEMISTRY ORDERABLES Final Resu lt Performing Organization Address [facility] de Phone Number [facility] [address] [place] [address] * LACTIC ACID (03/05/2021 10:45 AM EDT) Lactic Acid 1.5 0.5 - 1.9 mmol/L 03/05/2021 11:16 AM EDT [facility] Blood VENOUS BLOOD / Unknown Venipuncture / Unknown 03/05/2021 10:45 AM EDT 03/05/2021 10:55 AM EDT us Chavo Parkinson MD CHEMISTRY ORDERABLES Final Resu lt Performing Organization Address [facility] de Phone Number [facility] [address] [place] [address] * BLOOD CULTURE (NO STAIN) (03/05/2021 10:45 AM EDT) Culture Result No Growth at 120 hours. BLOOD CULTURE (NO STAIN) 03/10/2021 2:01 PM EDT [facility] Blood VENOUS BLOOD / Unknown Venipuncture / Unknown 03/05/2021 10:45 AM EDT 03/05/2021 10:57 AM EDT us Chavo Parkinson MD MICROBIOLOGY - GENERAL ORDERABL ES Final Result Performing Organization Address [facility] de Phone Number [facility] [address] , [place] [address] * (ABNORMAL) COMPREHENSIVE METABOLIC PANEL (03/05/2021 10:45 AM EDT) Sodium 136 136 - 145 mmol/L 03/05/2021 11:24 AM EDT [facility] Potassium 4.0 3.5 - 5.0 mmol/L 03/05/2021 11:24 AM EDT [facility] Chloride 100 98 - 107 mmol/L 03/05/2021 11:24 AM EDT [facility] Total CO2 16(L) 22 - 29 mmol/L 03/05/2021 11:24 AM EDT [facility] Anion Gap 20(H) 7 - 16 mmol/L 03/05/2021 11:24 AM EDT [facility] Calcium 9.2 8.8 - 10.4 mg/dL 03/05/2021 11:24 [facility] Glucose Lvl 146(H) 82 - 100 mg/dL 03/05/2021 11:24 AM [facility] BUN 49(H) 8 - 23 mg/dL 03/05/2021 11:24 AM EDT [facility] Creatinine 3.46(H) 0.51 - 1.30 mg/dL 03/05/2021 11:24 AM EDT [facility] Albumin 4.4 3.2 - 4.6 gm/dL 03/05/2021 11:24 AM [facility] Total Protein 8.0 6.4 - 8.3 gm/dL 03/05/2021 11:24 AM [facility] Bili Total 0.3 0.1 - 1.3 mg/dL 03/05/2021 11:24 AM EDT [facility] ALT 23 <=41 U/L 03/05/2021 11:24 AM EDT [facility] AST 43(H) <=40 U/L 03/05/2021 11:24 AM EDT [facility] Alk Phos 71 36 - 123 U/L 03/05/2021 11:24 AM EDT [facility] GFR Afr Am 16(L) >=60 mL/min/1.7 3 m2 03/05/2021 11:24 AM EDT [facility] GFR Non Afr Am 14(L) >=60 mL/min/1.7 3 m2 03/05/2021 11:24 AM EDT [facility] Comment: This estimated GFR was calculated [...] / Unknown 03/05/2021 10:45 AM EDT 03/05/2021 10:57 AM EDT us Chavo Parkinson MD CHEMISTRY ORDERABLES Final Resu lt [facility] [address] [place] [id number] * (ABNORMAL) CBC WITH DIFF (03/05/2021 10:45 AM EDT) WBC 10.1 3.7 - 10.3 x10(3)/mcL 03/05/2021 11:04 AM EDT [facility] RBC 3.79(L) 3.90 - 5.20 x10(6)/mcL 03/05/2021 11:04 AM EDT [facility] Hgb 12.0 11.2 - 15.7 g/dL 03/05/2021 11:04 AM EDT [facility] Hct 36.5 34.0 - 45.0 % 03/05/2021 11:04 AM EDT [facility] MCV 96.3 80.0 - 100.0 fL 03/05/2021 11:04 AM EDT [facility] MCH 31.7 26.0 - 34.0 pg 03/05/2021 11:04 AM EDT [facility] MCHC 32.9 30.7 - 35.5 g/dL 03/05/2021 11:04 AM EDT [facility] RDW 12.4 <=14.9 % 03/05/2021 11:04 AM EDT [facility] Platelet 158 155 - 369 x10(3)/[facility] 03/05/2021 11:04 AM EDT [facility] MPV 11.0 8.8 - 12.5 fL 03/05/2021 11:04 AM EDT [facility] Neut Percent 73.7 % 03/05/2021 11:04 AM EDT [facility] Comment:Neutrophils equals s egs plus bands Imm Gran% 0.3 % 03/05/2021 11:04 AM EDT [facility] Comment:Automated count of m etamyelocytes, myelocytes and promyelocytes. Lymph Percent 20.9 % 03/05/2021 11:04 AM EDT [facility] [place] Percent 4.9 % 03/05/2021 11:04 AM EDT [facility] Eos Percent 0.0 % 03/05/2021 11:04 AM EDT [facility] Baso Percent 0.2 % 03/05/2021 11:04 AM EDT [facility] Neut # 7.5(H) 1.6 - 6.1 x10(3)/[facility] 03/05/2021 11:04 AM EDT [facility] Comment:Neutrophils equals s egs plus bands IMMGRAN# 0.0 0.0 - 0.1 x10(3)/[facility] 03/05/2021 11:04 AM [facility] Comment:Automated count of m etamyelocytes, myelocytes and promyelocytes. An absolute IG <0.1 is reported as 0.0. Lymph # 2.1 1.2 - 3.9 x10(3)/mcL 03/05/2021 11:04 AM EDT [facility] [place] # 0.5 0.3 - 0.9 x10(3)/[facility] 03/05/2021 11:04 AM EDT [facility] Eos# 0.0 0.0 - 0.5 x10(3)/[facility] 03/05/2021 11:04 AM EDT [facility] Baso # 0.0 0.0 - 0.1 x10(3)/[facility] 03/05/2021 11:04 AM EDT [facility] Blood VENOUS BLOOD / Unknown Venipuncture / Unknown 03/05/2021 10:45 AM EDT 03/05/2021 10:59 AM EDT Chavo Parkinson MD HEMATOLOGY ORDERABLES Final Res ult Performing Organization Address [facility] de Phone Number [facility] [address] [place] [address] * (ABNORMAL) GLUCOSE METER POC (03/05/2021 10:36 AM EDT) [facility] Glucose Meter POC 135(H) 70 - 100 mg/dL 03/05/2021 10:37 AM EDT [facility] Sample Type Capillary 03/05/2021 10:37 AM EDT [facility] Patient Status Non-Critical Patient 03/05/2021 10:37 AM EDT [facility] Blood BLOOD SPECIMEN / Unknown 03/05/2021 10:36 AM EDT 03/05/2021 10:37 AM EDT Chavo Parkinson MD POINT OF CARE TEST ORDERABLES F inal Result Performing Organization Address [facility] de Phone Number [facility] [address] [place] [address] * EK EKG 12 LEAD (03/05/2021 10:33 AM EDT) Anatomical Region Laterality Modality Electrocardiogra phy 03/05/2021 10:4 2 AM EDT Impressions 03/05/2021 1:26 PM EDT ?[facility] ? Test Date: ?2021-03-05 Pat Name: ? TYRA ROSASRICH ?Department: ?? DEPID ? Room: ? Z01 Gender: ? Female ? Toe Puncher: ?? Sw9 : ?1960 ? Requested By: CHAVO PARKINSON K Order Number: [id number] ?Reading MD: ?? Gume Thompson, MD ? Measurements Intervals ?[place] ? Rate: ? 58 ? P: ?16 RI: ? 145 ?QRS: ?18 QRSD: ? 86 ? T: ?48 QT: ? 424 ? QTc: ?419 ? Interpretive Statements SINUS RHYTHM RATE 58 NORMAL ECG SIMILAR TO 12/30/16 Electronically Signed On 03-05-2021 13:26:37 EDT by Gume Thompson MD Narrative Procedure Note Gume Thompson MD - 03/05/[address] [facility] Test Date: 2021-03-05 Pat Name: TYRA GRECO Department: DEPID Room: [facility] Gender: Female Toe Puncher: [facility] : 1960 Requested By: CHAVO Guzmán Order Number: [id number] Reading MD: Gume Thompson MD Measurements Intervals [place] Rate: 58 P: 16 RI: 145 QRS: 18 QRSD: 86 T: 48 QT: 424 QTc: 419 Interpretive Statements SINUS RHYTHM RATE 58 NORMAL ECG SIMILAR TO 12/30/16 Electronically Signed On 03-05-2021 13:26:37 EDT by Gume Thompson MD us Chavo Parkinson MD IMG ECG ORDERABLES Final Result documented in this encounter Visit Diagnoses Diagnosis COVID-19 virus infection- Primary COVID-19 virus infection Acute kidney injury (HCC) Acute kidney failure, unspecified Nausea vomiting and diarrhea Nausea with vomiting Hypotension, unspecified hypotension type COVID-19 documented in this encounter Administered Medications Inactive Administered Medications - up to 1 most recent administrations Medication Order MAR Action Action Date Dose Rate Site 0.9 % NaCl IV bolus 1,000 mL 1,000 mL, Intravenous, ONCE, 1 dose, On Fri03/05/21 at 1100, Administer over 1 Hours IV Started 03/05/2021 10:30 AM EDT 1,000 mL 999 mL/hr 0.9 % NaCl IV bolus 1,000 mL 1,000 mL, Intravenous, ONCE, 1 dose, On Fri03/05/21 at 1245, Administer over 1 Hours IV Started 03/05/2021 11:47 AM EDT 1,000 mL 999 mL/hr 0.9 % NaCl IV bolus 500 mL 500 mL, Intravenous, ONCE, 1 dose, On Fri03/05/21 at 1430, Administer over 0.5 Hours IV Started 03/05/2021 2:30 PM EDT 500 mL 999 mL/hr norepinephrine (LEVOPHED) 16 mg in dextrose 5% 250 mL infusion 0.5-30 mcg/min (0.4688-28.125 mL/hr, rounded to 0.5-28.1 mL/hr), Intravenous, TITRATED, Starting on Fri03/05/21 at 1215, Until Fri03/05/21 at 1809, Initial rate: 4 mcg/min Titrate by 2 mcg/min every 1-15 min Maximum Dose: 30 mcg/min VESICANT , Titrate to maintain: MAP greater than or equal to (>/=) 65 Rate/Dose Verify 03/05/2021 1:13 PM EDT 4 mcg/min 3.8 mL/hr promethazine (PHENERGAN) 12.5 mg in sodium chloride 10 mL injection 12.5 mg, Intravenous, ONCE, 1 dose, On Fri03/05/21 at 1100, If administering IV, dilute with 10ml of sodium chloride 0.9% and administer through a running IV VESICANT Given 03/05/2021 11:41 AM EDT 12.5 mg sodium chloride 0.9 % 500 mL IV bolus Intravenous, ONCE, 1 dose, On Fri03/05/21 at 1245, at 491.8 mL/hr IV Started 03/05/2021 12:45 PM EDT 491.8 mL/hr sodium chloride 0.9% IV line flush 50 mL 50 mL, Intravenous, at 150-600 mL/hr, PRN, Starting on Fri03/05/21 at 1046, Until Fri03/05/21 at 1809, Line Care, Flush with 50 mL after IVPB to insure complete administration of the dose. May use the saline infusion to back flush IVPB tubing as needed., Use this order to document priming and flushing IV line after medication administration. sodium chloride 0.9% syringe 5-10 mL 5-10 mL, Intravenous, PRN, Starting on Fri03/05/21 at 1046, Until Fri03/05/21 at 1809, Line Care, Flush with 5 mL saline pre/post IVP, and 5 mL prior to IVPB or blood product administration. Protocol for PERIPHERAL IV saline lock maintenance, flush with 3-5 mL saline syringe every 8 hours., Flush with 5-10 mL saline pre/post IVP, and 5 mL prior to IVPB administration. documented in this encounter Active and Recently Administered Medications Times are shown in EDT. Scheduled Medication Order 03/03/2021 03/04/2021 03/05/2021 0.9 % NaCl IV bolus 1,000 mL (COMPLETED)(Linked Group 1) 1,000 mL, Intravenous, ONCE, 1 dose, On Fri03/05/21 at 1100, Administer over 1 Hours 1030 (IV Started - P rovider: Abbey Owen RN - Comment: IV started by other at 1030 ( RN).)1130 (Stopped - Provider: Abbey Owen RN) 0.9 % NaCl IV bolus 1,000 mL (COMPLETED)(Linked Group 1) 1,000 mL, Intravenous, ONCE, 1 dose, On Fri03/05/21 at 1245, Administer over 1 Hours 1147 (IV Started - P rovider: Abbey Owen RN)1242 (Stopped - Provider: Leanna Morataya RN) 0.9 % NaCl IV bolus 500 mL (COMPLETED)(Linked Group 1) 500 mL, Intravenous, ONCE, 1 dose, On Fri03/05/21 at 1430, Administer over 0.5 Hours 1430 (IV Started - P rovider: Leanna Morataya RN)1431 (Stopped - Provider: Leanna Morataya RN) promethazine (PHENERGAN) 12.5 mg in sodium chloride 10 mL injection (COMPLETED) 12.5 mg, Intravenous, ONCE, 1 dose, On Fri03/05/21 at 1100, If administering IV, dilute with 10ml of sodium chloride 0.9% and administer through a running IV VESICANT 1141 (Given - Provid er: Abbey Owen RN) sodium chloride 0.9 % 500 mL IV bolus (COMPLETED) Intravenous, ONCE, 1 dose, On Fri03/05/21 at 1245, at 491.8 mL/hr 1245 (IV Started - P rovider: Leanna Morataya RN)1349 (Stopped - Provider: Sima Haney RN) sodium chloride 0.9 % 500 mL IV bolus Intravenous, ONCE, 1 dose, On Fri03/05/21 at 1345, at 491.8 mL/hr 1345 (Not Given - Pr ovider: Leanna Morataya RN - Reason: Other - Comment: duplicate) Continuous Medication Order 03/03/2021 03/04/2021 03/05/2021 norepinephrine (LEVOPHED) 16 mg in dextrose 5% 250 mL infusion 0.5-30 mcg/min (0.4688-28.125 mL/hr, rounded to 0.5-28.1 mL/hr), Intravenous, TITRATED, Starting on Fri03/05/21 at 1215, Until Fri03/05/21 at 1809, Initial rate: 4 mcg/min Titrate by 2 mcg/min every 1-15 min Maximum Dose: 30 mcg/min VESICANT , Titrate to maintain: MAP greater than or equal to (>/=) 65 1305 (New Bag - Prov ider: Sima Haney RN)1313 (Rate/Dose Verify - Provider: Leanna Morataya RN)1313 (Rate/Dose Verify - Provider: Leanna Morataya RN) PRN Medication Order 03/03/2021 03/04/2021 03/05/2021 sodium chloride 0.9% IV line flush 50 mL 50 mL, Intravenous, at 150-600 mL/hr, PRN, Starting on Fri03/05/21 at 1046, Until Fri03/05/21 at 1809, Line Care, Flush with 50 mL after IVPB to insure complete administration of the dose. May use the saline infusion to back flush IVPB tubing as needed., Use this order to document priming and flushing IV line after medication administration. sodium chloride 0.9% syringe 5-10 mL 5-10 mL, Intravenous, PRN, Starting on Fri03/05/21 at 1046, Until Fri03/05/21 at 1809, Line Care, Flush with 5 mL saline pre/post IVP, and 5 mL prior to IVPB or blood product administration. Protocol for PERIPHERAL IV saline lock maintenance, flush with 3-5 mL saline syringe every 8 hours., Flush with 5-10 mL saline pre/post IVP, and 5 mL prior to IVPB administration. Linked Groups Order Group 1: 0.9 % NaCl IV bolus 1,000 mL (COMPLETED)Jump to med 1,000 mL, Intravenous, ONCE, 1 dose, On Fri03/05/21 at 1100, Administer over 1 Hours Followed by 0.9 % NaCl IV bolus 1,000 mL (COMPLETED)Jump to med 1,000 mL, Intravenous, ONCE, 1 dose, On Fri03/05/21 at 1245, Administer over 1 Hours Followed by 0.9 % NaCl IV bolus 500 mL (COMPLETED)Jump to med 500 mL, Intravenous, ONCE, 1 dose, On Fri03/05/21 at 1430, Administer over 0.5 Hours documented in this encounter Orders Medications Ordered That Marco ht Not Have Been Administered Count Last Ordered Date First Ordered Date sodium chloride 0.9 % 1,000 mL IV bolus 1 0 03/05/2021 sodium chloride 0.9 % 500 mL IV bolus 1 sodium chloride 0.9% IV line flush 50 mL 1 03/05/2021 sodium chloride 0.9% syringe 5-10 mL 1 02/06 Nursing Count Last Ordered Date First Orde red Date BLOOD GLUCOSE 1 03/05/2021 CARDIAC MONITORING 1 03/05/2021 CENTRAL LINE TRAY TO BEDSIDE 1 03/05/2021 INSERT GARZA CATHETER 1 03/05/2021 PULSE OXIMETRY - NURSING 1 03/05/2021 IV Count Last Ordered Date First Orde red Date SALINE LOCK IV 1 03/05/2021 Admission Count Last Ordered Date First Orde red Date ADMIT 2 03/05/2021 documented in this encounter Additional Health Concerns Infection Onset Date Last Indicated Resolved Time COVID-19 03/03/2021 03/03/2021 04/02/2021 10:1 2 PM EDT documented as of this encounter Care Teams Injection Wax Molder Relationship Specialty Start Date End Date Lupillo Garcia MD PCP - General Family Medicine 11/10/12 documented as of this encounter
--- OUTSIDE RECORDS SUMMARY | 2024-06-22 10:21 | XMS_ITS | Encounter Summary ---
Author Organization [facility] [place] [address] Care Team Providers Care Marketing And Public Relations Manager Name Role Phone Lupillo Garcia MD Primary Care Provider [phone]- [phone] Encounter Details Date Type Department Care Team (Latest Contact Info) Description 06/20/2020 Travel Social History Tobacco Use Types Packs/Day [...] have Coronavirus / COVID-19? No / Unsure 06/20/2020 2:57 PM EST documented as of this encounter Plan of Treatment Not on file documented as of this encounter Visit Diagnoses Not on filedocumented in this encounter Care Teams Marketing And Public Relations Manager Relationship Specialty Start Date End Date Lupillo Garcia MD PCP - General Family Medicine 11/10/12 documented as of this encounter
--- OUTSIDE RECORDS SUMMARY | 2024-06-22 10:21 | XMS_ITS | Encounter Summary ---
Author Organization [facility] [place] [address] Care Team Providers Care Child & Adolescent Psychiatrist Name Role Phone Lupillo Garcia MD Primary Care Provider [phone]- [phone] Encounter Details Date Type Department Care Team (Latest Contact Info) Description 03/05/2021 Travel Social History Tobacco Use Types Packs/Day [...] documented as of this encounter Care Teams Child & Adolescent Psychiatrist Relationship Specialty Start Date End Date Lupillo Garcia MD PCP - General Family Medicine 11/10/12 documented as of this encounter
--- OUTSIDE RECORDS SUMMARY | 2024-06-22 10:21 | XMS_ITS | Encounter Summary ---
Author Organization [place] [address] Care Team Providers Care Milieu Coordinator Name Role Phone Lupillo Garcia MD Primary Care Provider [phone]- [phone] Encounter Details Date Type Department Care Team (Latest Contact Info) Description 10/19/2018 3:36 PM EDT - 10/19/2018 11:59 PM EDT Hospital Encounter [facility] [address] [place] [address] Cervicalgia Discharge Disposition: Home or Self Care Social [...] Name Priority Date/Time Associated Diagnosis Comments XR CERVICAL SPINE AP LATERAL AND ODONTOID Routine 10/19/2018 3:44 PM EDT Cervicalgia documented in this encounter Results * XR CERVICAL SPINE AP LATERAL AND ODONTOID (10/19/2018 3:44 PM EDT) Anatomical Region Laterality Modality C-spine Radiographic Hailey ging 10/19/2018 3:44 PM EDT Impressions 10/19/2018 4:16 PM EDT 1. Stable multilevel mild to moderate cervical degenerative changes. - - Narrative 10/19/2018 4:16 PM EDT AP, LATERAL, AND ODONTOID C-SPINE, ??10/19/2018 3:44 PM CLINICAL HISTORY: ??[id number] COMPARISON: ??September 12, 2015 PROCEDURE COMMENTS: AP and lateral views of the cervical spine. FINDINGS: ?? Multilevel cervical degenerative changes are again noted and are stable. No interval fracture or facet disruption. No precervical soft tissue swelling identified. Thoracic spinal instrumentation changes are again noted. Procedure Note Gatito Aranda MD - 10/19/2018 AP, LATERAL, AND ODONTOID C-SPINE, 10/19/2018 3:44 PM CLINICAL HISTORY: [id number] COMPARISON: September 12, 2015 PROCEDURE COMMENTS: AP and lateral views of the cervical spine. FINDINGS: Multilevel cervical degenerative changes are again noted and are stable. No interval fracture or facet disruption. No precervical soft tissueswelling identified. Thoracic spinal instrumentation changes are again noted. IMPRESSION: 1. Stable multilevel mild to moderate cervical degenerative changes. - - Lupillo Garcia MD [facility] Final Result documented in this encounter Visit Diagnoses Diagnosis Cervicalgia documented in this encounter Care Teams Milieu Coordinator Relationship Specialty Start Date End Date Lupillo Garcia MD PCP - General Family Medicine 11/10/12 documented as of this encounter
--- OUTSIDE RECORDS SUMMARY | 2024-06-22 10:21 | XMS_ITS | Encounter Summary ---
Author [place] [address] Care Team Providers Care Janitor Custodian Name Role Phone Lupillo Garcia MD Primary Care Provider [phone] Encounter Details Date Type Department Care Team (Latest Contact Info) Description 03/28/2020 1:15 PM EDT - 03/28/2020 11:59 PM EDT Hospital Encounter [facility] [address] [place], [place] [id number] Essential hypertension, malignant (Primary Dx); Diabetic autonomic neuropathy associated with type 2 diabetes mellitus (HCC) Discharge Disposition: Home or Self Care Social [...] have Coronavirus / COVID-19? No / Unsure 03/28/2020 1:12 PM EDT documented as of this encounter Medications [...] Procedure Name Priority Date/Time Associated Diagnosis Comments TSH REFLEX Callback 03/28/2020 1:18 PM EDT Essential hypertension, malignant Diabetic autonomic neuropathy associated with type 2 diabetes mellitus (HCC) CBC WITH DIFF Callback 03/28/2020 1:18 PM EDT Essential hypertension, malignant Diabetic autonomic neuropathy associated with type 2 diabetes mellitus (HCC) T4, FREE (THYROXINE) Callback 03/28/2020 1:18 PM EDT Essential hypertension, malignant Diabetic autonomic neuropathy associated with type 2 diabetes mellitus (HCC) HEMOGLOBIN A1C Callback 03/28/2020 1:18 PM EDT Essential hypertension, malignant Diabetic autonomic neuropathy associated with type 2 diabetes mellitus (HCC) COMPREHENSIVE METABOLIC PANEL Callback 03/28/2020 1:18 PM EDT Essential hypertension, malignant Diabetic autonomic neuropathy associated with type 2 diabetes mellitus (HCC) documented in this encounter Results * (ABNORMAL) HEMOGLOBIN A1C (03/28/2020 1:18 PM EDT) Hgb A1C 6.8(H) 4.2 - 5.6 % 03/29/2020 5:49 AM EDT [facility] Est. Avg Glucose 148 mg/dL 03/29/2020 5:49 AM EDT [facility] Blood VENOUS BLOOD / Unknown Venipuncture / Unknown 03/28/2020 1:18 PM EDT 03/28/2020 1:18 PM EDT Narrative [facility] - 03/29/2020 5:49 AM EDT REFERENCE RANGE: Normal: 4.0-5.6% Pre-diabetes: 5.7-6.4% Provisional diagnosis of diabetes: >6.4% Hgb F>10% and anything which shortens red cell survival, such as hemolytic anemia, or unstable hemoglobin variants such as HbSS, HbSC, or HbCC, will lower the HbA1c value associated with a given level of glycemic control. ? us Lupillo Garcia MD CHEMISTRY ORDERABLES Final Result [facility] [address] [place] [address] , [place] [address] * T4, FREE (THYROXINE) (03/28/2020 1:18 PM EDT) Free T4 1.20 0.80 - 1.70 ng/dL 03/29/2020 12:44 AM EDT [facility] Blood VENOUS BLOOD / Unknown Venipuncture / Unknown 03/28/2020 1:18 PM EDT 03/28/2020 1:18 PM EDT Narrative [facility] - 03/29/2020 12:44 AM EDT Ingestion of isadora doses of biotin (>5 mg/day) taken within 8 hours of drawing blood sample can interfere with this immunoassay test. Lupillo Garcia MD CHEMISTRY ORDERABLES Final Result Performing Organization Address [facility] Co de Phone Number [facility] [address] , [place] [address] * TSH REFLEX (03/28/2020 1:18 PM EDT) Pathologist [facility] TSH Reflex 2.220 0.270 - 4.200 mcIU/mL 03/29/2020 12:44 AM EDT [facility] Blood VENOUS BLOOD / Unknown Venipuncture / Unknown 03/28/2020 1:18 PM EDT 03/28/2020 1:18 PM EDT Narrative [facility] - 03/29/2020 12:44 AM EDT Ingestion of isadora doses of biotin (>5 mg/day) taken within 8 hours of drawing blood sample can interfere with this immunoassay test. Lupillo Garcia MD CHEMISTRY ORDERABLES Final Result Performing Organization Address [facility] Co de Phone Number [facility] [address] , [place] [address] * (ABNORMAL) COMPREHENSIVE METABOLIC PANEL (03/28/2020 1:18 PM EDT) Pathologist [facility] Sodium 141 136 - 145 mmol/L 03/29/2020 12:44 AM EDT [facility] [employer] Potassium 4.3 3.5 - 5.0 mmol/L 03/29/2020 12:44 AM EDT [facility] [employer] Chloride 107 98 - 107 mmol/L 03/29/2020 12:44 AM EDT [facility] Total CO2 25 22 - 29 mmol/L 03/29/2020 12:44 AM EDT [facility] Anion Gap 9 7 - 16 mmol/L 03/29/2020 12:44 AM EDT [facility] Calcium 9.6 8.6 - 10.4 mg/dL 03/29/2020 12:44 AM EDT [facility] Glucose Lvl 56(L) 74 - 100 mg/dL 03/29/2020 12:44 AM EDT [facility] BUN 26(H) 6 - 20 mg/dL 03/29/2020 12:44 AM EDT [facility] Creatinine 1.28 0.51 - 1.30 mg/dL 03/29/2020 12:44 AM EDT [facility] Albumin 4.7 3.5 - 5.2 gm/dL 03/29/2020 12:44 AM EDT [facility] Total Protein 7.9 6.4 - 8.3 gm/dL 03/29/2020 12:44 AM EDT [facility] Bili Total 0.4 0.1 - 1.3 mg/dL 03/29/2020 12:44 AM EDT [facility] ALT 15 <=41 U/L 03/29/2020 12:44 AM EDT [facility] AST 22 <=40 U/L 03/29/2020 12:44 AM EDT [facility] Alk Phos 65 36 - 123 U/L 03/29/2020 12:44 AM EDT [facility] GFR Afr Am 53(L) >=60 mL/min/1.7 3 m2 03/29/2020 12:44 AM EDT [facility] GFR Non Afr Am 46(L) >=60 mL/min/1.7 3 m2 03/29/2020 12:44 AM T [facility] Comment: This estimated GFR was [...] VENOUS BLOOD / Unknown Venipuncture / Unknown 03/28/2020 1:18 PM EDT 03/28/2020 1:18 PM EDT us Lupillo Garcia MD CHEMISTRY ORDERABLES Final Result [facility] [address] , [place] [address] [facility] [address] [place] [address] * CBC WITH DIFF (03/28/2020 1:18 PM EDT) WBC 7.3 3.7 - 10.3 x10(3)/mcL 03/28/2020 8:03 PM EDT [facility] RBC 4.04 3.90 - 5.20 x10(6)/mcL 03/28/2020 8:03 PM EDT [facility] Hgb 12.8 11.2 - 15.7 g/dL 03/28/2020 8:03 PM EDT [facility] Hct 39.2 34.0 - 45.0 % 03/28/2020 8:03 PM EDT [facility] MCV 97.0 80.0 - 100.0 fL 03/28/2020 8:03 PM EDT [facility] MCH 31.7 26.0 - 34.0 pg 03/28/2020 8:03 PM EDT [facility] MCHC 32.7 30.7 - 35.5 g/dL 03/28/2020 8:03 PM EDT [facility] RDW 13.0 <=14.9 % 03/28/2020 8:03 PM EDT [facility] Platelet 222 155 - 369 x10(3)/mcL 03/28/2020 8:03 PM EDT [facility] MPV 11.1 8.8 - 12.5 fL 03/28/2020 8:03 PM EDT [facility] Neut Percent 52.9 % 03/28/2020 8:03 PM EDT [facility] Comment:Neutrophils equals s egs plus bands Imm Gran% 0.1 % 03/28/2020 8:03 PM EDT [facility] Comment:Automated count of m etamyelocytes, myelocytes and promyelocytes. Lymph Percent 39.1 % 03/28/2020 8:03 PM EDT [facility] [place] Percent 5.6 % 03/28/2020 8:03 PM EDT [facility] Eos Percent 1.6 % 03/28/2020 8:03 PM EDT [facility] Baso Percent 0.7 % 03/28/2020 8:03 PM EDT [facility] Neut # 3.9 1.6 - 6.1 x10(3)/[facility] 03/28/2020 8:03 PM EDT [facility] [place], [facility] Comment:Neutrophils equals s egs plus bands IMMGRAN# 0.0 0.0 - 0.1 x10(3)/mcL 03/28/2020 8:03 PM EDT [facility] [place] Comment:Automated count of m etamyelocytes, myelocytes and promyelocytes. An absolute IG <0.1 is reported as 0.0. Lymph # 2.9 1.2 - 3.9 x10(3)/mcL 03/28/2020 8:03 PM EDT [facility] [place] # 0.4 0.3 - 0.9 x10(3)/[facility] 03/28/2020 8:03 PM EDT [facility] Eos# 0.1 0.0 - 0.5 x10(3)/[facility] 03/28/2020 8:03 PM EDT [facility] [place] Baso # 0.1 0.0 - 0.1 x10(3)/[facility] 03/28/2020 8:03 PM EDT [facility] [place], [facility] Blood VENOUS BLOOD / Unknown Venipuncture / Unknown 03/28/2020 1:18 PM EDT 03/28/2020 1:18 PM EDT us Lupillo Garcia MD HEMATOLOGY ORDERABLES Final Result [facility] [place] [address] , [address] [place] [id number] documented in this encounter Visit Diagnoses Diagnosis Essential hypertension, malignant- Primary Diabetic autonomic neuropathy associated with type 2 diabetes mellitus (HCC) Type II or unspecified type diabetes mellitus with neurological manifestations, not stated as uncontrolled documented in this encounter Care Teams Janitor Custodian Relationship Specialty Start Date End Date Lupillo Garcia MD PCP - General Family Medicine 11/10/12 documented as of this encounter
--- OUTSIDE RECORDS SUMMARY | 2024-06-22 10:21 | XMS_ITS | Encounter Summary ---
Author Organization [place] [address] Care Team Providers Care Veneer Marker Name Role Phone Lupillo Garcia MD Primary Care Provider [phone]- [phone] Encounter Details Date Type Department Care Team (Latest Contact Info) Description 06/20/2020 2:59 PM EST - 06/20/2020 11:59 PM EST Hospital En[facility] [address] [place] [address] Acute pain of right shoulder Discharge Disposition: Home or Self Care Social [...] PM EST documented as of this encounter Medications at [...] Priority Date/Time Associated Diagnosis Comments XR SHOULDER RIGHT 3 VIEWS Routine 06/20/2020 3:05 PM EST Acute pain of right shoulder documented in this encounter Results * XR SHOULDER RIGHT 3 VIEWS (06/20/2020 3:05 PM EST) Anatomical Region Laterality Modality Shoulder Radiographic Hailey ging 06/20/2020 3:05 PM EST Impressions 06/20/2020 3:41 PM EST No acute bony abnormality of the shoulder. - Narrative 06/20/2020 3:41 PM EST XR SHOULDER RIGHT 3 VIEWS, ??06/20/2020 3:05 PM CLINICAL HISTORY: ??M25.511-Pain in right [id number] COMPARISON: ??None. PROCEDURE COMMENTS: Routine views. FINDINGS: The glenohumeral and acromioclavicular joints are congruent. There is no fracture. Joint spaces overall well-maintained. No periostitis. Postoperative changes in the thoracic spine. Procedure Note Abhishek Gallegos MD - 06/20/2020 XR SHOULDER RIGHT 3 VIEWS, 06/20/2020 3:05 PM CLINICAL HISTORY: M25.511-Pain in right [id number] COMPARISON: None. PROCEDURE COMMENTS: Routine views. FINDINGS: The glenohumeral and acromioclavicular joints are congruent.There is no fracture. Joint spaces overall well-maintained. No periostitis. Postoperativechanges in the thoracic spine. IMPRESSION: No acute bony abnormality of the shoulder. - Lupillo Garcia MD [facility] Final Result documented in this encounter Visit Diagnoses Diagnosis Acute pain of right shoulder documented in this encounter Care Teams Veneer Marker Relationship Specialty Start Date End Date Lupillo Garcia MD PCP - General Family Medicine 11/10/12 documented as of this encounter
--- OUTSIDE RECORDS SUMMARY | 2024-06-22 10:21 | XMS_ITS | Encounter Summary ---
Author Organization [facility] [place] [address] Care Team Providers Care Pest Locator Name Role Phone Lupillo Garcia MD Primary Care Provider [phone]- [phone] Encounter Details Date Type Department Care Team (Latest Contact Info) Description 03/28/2020 Travel Social History Tobacco Use Types Packs/Day [...] on filedocumented in this encounter Care Teams Pest Locator Relationship Specialty Start Date End Date Lupillo Garcia MD PCP - General Family Medicine 11/10/12 documented as of this encounter
--- OUTSIDE RECORDS SUMMARY | 2024-06-22 10:21 | XMS_ITS | Encounter Summary ---
Author Organization [place] [address] Care Team Providers Care Model Home Sales Greeter Name Role Phone Lupillo Garcia MD Primary Care Provider [phone] Reason for Visit * Reason Comments Chest Pain chest pain radiates to left arm, soa, and kidney pain . x 2 weeks. CPTA: none Encounter Details Date Type Department Care Team (Late st Contact Info) Description 12/29/2016 4:48 PM EDT - 12/29/2016 9:01 PM EDT Emergency [facility] [address] [place] [address] Matilde Raphael MD [address] [place] [id number] Chest pain, unspecified type (Primary Dx) Discharge Disposition: Short Term Hospital Social History [...] Sign Reading Time Taken Comments Blood Pressure 157/82 12/29/2016 8:28 PM EDT Pulse 58 12/29/2016 8:28 PM EDT Temperature 36.6 ??C (97.9 ??F) 12/29/2016 4:44 PM ED T Respiratory Rate 15 12/29/2016 8:28 PM EDT Oxygen Saturation 100% 12/29/2016 8:28 PM EDT Inhaled Oxygen Concentration - - Weight 80.7 kg (178 lb) 12/29/2016 4:44 PM EDT Height 166.4 cm (5' 5.5 ) 12/29/2016 4:42 PM EDT Body Mass Index 29.17 12/29/2016 4:42 PM EDT documented in this encounter Medications [...] Tablet Take by mouth 2 times daily. oxyCODONE (ROXICODONE) 5 mg tablet Take 1 Tab by mouth every 8 hours as needed for Pain for 20 doses. 20 Tab 0 08/19/2013 7 sulfamethoxazole -trimethoprim (BACTRIM DS) 800-160 mg per tablet Take 1 Tab by mouth daily. 7 documented as of this encounter Discharge Disposition Disposition Code Departure Means Destination [facility] documented in this encounter ED Notes * Solano Rufina Magen, OUTSIDE SALES - 12/29/2016 4:39 PM EDT CHIEF COMPLAINT Chief Complaint Patient presents with ??? Chest Pain chest pain radiates to left arm, soa, and kidney pain . x 2 weeks. CPTA: none HPI Tyra Romero is a 56 y.o. female [...] believes this is related to her hormones REVIEW OF SYSTEMS See HPI for further details. Review of systems otherwise negative. PAST MEDICAL HISTORY Past 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: Diagnosis Date ??? Asthma ??? Depression ??? Diabetes mellitus (HCC) ??? Encounter for blood transfusion ??? Headache ??? Heart murmur ??? Heartburn ??? Syncope and collapse ??? Unspecified sleep apnea no machine FAMILY HISTORY No family history on file. SOCIAL HISTORY Social History Social History ??? Marital status: Spouse name: N/A ??? Number of children: N/A ??? Years of education: N/A Social History Main Topics ??? Smoking status: Never Smoker ??? Smokeless tobacco: Never Used ??? Alcohol use No ??? Drug use: No ??? Sexual activity: Not Asked Other Topics Concern ??? None Social History Narrative ??? None SURGICAL HISTORY Past Surgical History: Procedure Laterality Date ??? BACK SURGERY ??? FOOT SURGERY right x2 left x1 ??? HAND SURGERY LCTR left trigger finger ??? HIATAL HERNIA REPAIR x3 ??? HYSTERECTOMY ??? KNEE ARTHROSCOPY Left 08/19/2013 Left Knee Arthroscopy Partial Medial Meniscectomy Chondrplasty Patella Femoral condyle; Surgeon: Alexander Whittington MD; Location: [facility]; Service: Orthopedics ??? KNEE SURGERY right knee scope CURRENT MEDICATIONS Current Facility-Administered Medications: ??? sodium chloride 0.9% syringe 5-10 mL, 5-10 mL, Intravenous, PRN, Russ, Rufina Us, OUTSIDE SALES Current Outpatient Prescriptions: ??? albuterol (PROVENTIL HFA;VENTOLIN HFA) 90 mcg/actuation inhaler, Inhale 2 Puffs into the lungs every 6 hours as needed for Wheezing., Disp: , Rfl: ??? buPROPion (WELLBUTRIN SR) 150 mg SR tablet, Take 150 mg by mouth 2 times daily., Disp: , Rfl: ??? estrogens, conjugated, (PREMARIN) [...] skin). Sliding scale, Disp: , Rfl: ??? metoprolol (LOPRESSOR) 25 mg tablet, Take 25 mg by mouth 2 times daily., Disp: , Rfl: ??? omeprazole (PRILOSEC) 20 mg, Take 20 mg by mouth daily., Disp: , Rfl: ??? topiramate (TOPAMAX) 50 mg tablet, Take 50 mg by mouth 2 times daily., Disp: , Rfl: ??? HYDROcodone-acetaminophen (LORTAB) 10-500 mg, Take 1 Tab by mouth every 6 hours as needed., Disp: , Rfl: ??? oxyCODONE (ROXICODONE) 5 mg tablet, Take 1 Tab by mouth every 8 hours as needed for Pain for 20doses. (Patient not taking: Reported on 04/12/2016), Disp: 20 Tab, Rfl: 0 ??? promethazine (PHENERGAN) 25 mg tablet, Take 25 mg by mouth every 6 hours as needed for Nausea.,Disp: , Rfl: ??? sulfamethoxazole-trimethoprim (BACTRIM DS) 800-160 mg per tablet, Take 1 Tab by mouth daily., Disp: , Rfl: ??? SUMAtriptan (IMITREX) 100 mg tablet, Take 100 mg by mouth once as needed for Migraine., Disp: ,Rfl: ??? tiZANidine (ZANAFLEX) 4 mg tablet, Take 4 mg by mouth 3 times daily. Take 11/2 tabs as needed, Disp: , Rfl: ALLERGIES Allergies Allergen Reactions [...] (See Comments) seizures PHYSICAL EXAM VITAL SIGNS: ED Triage Vitals Temp 12/29/16 1644 97.9 ??F (36.6 ??C) Pulse 12/29/16 1644 66 Resp 12/29/16 1644 18 BP 12/29/16 1644 148/72 SpO2 12/29/16 1644 99 % Height 12/29/16 1642 5' 5.5 (1.664 m) Weight 12/29/16 1642 170 lb (77.1 kg) Constitutional: Well developed, Well nourished, No acute distress, Non-toxic appearance. HENT: Normocephalic, Atraumatic, Bilateral external ears normal, Oropharynx moist, No oral exudates, Nose normal. Eyes: PERRLA, EOMI, Conjunctiva normal, No discharge. Neck: Normal range of motion, No tenderness, Supple, No stridor. Cardiovascular: Normal heart rate and rhythm, No murmurs, No rubs, No gallops. Normal pulses. Thorax & Lungs: Normal breath sounds, No respiratory distress, No wheezing, No chest tenderness. Abdomen: Bowel sounds normal, Soft, No tenderness, No masses, No pulsatile masses. Skin: Warm, Dry, No erythema, No rash. Back: No tenderness, No CVA tenderness. Extremities: Intact distal pulses, No tenderness, No cyanosis. Neurologic: Alert & oriented x 3, Normal motor function, Normal sensory function, No focal deficits noted. EKG LABS/RADIOLOGY/PROCEDURES Results for orders placed or performed during the hospital encounter of 12/29/16 XR CHEST PA AND LATERAL Narrative XR CHEST PA AND LATERAL 12/29/2016 5:08 PM History: 56 years .Female. -CHEST PAIN. Compare: None Lungs are clear. Heart and mediastinum appear normal. Thoracic spinal fusion with intact spinal rods and pedicle screws. Vertebral endplate spanning T5 and T6 appear anatomically positioned. Impression No radiographic evidence of active cardiac or pulmonary disease process. TROPONIN-T Result Value Ref Range Troponin-T <0.01 <=0.00 ng/mL CBC WITH AUTO DIFF Result Value Ref Range WBC 7.7 4.0 - 11.0 x10(3)/mcL RBC 4.12 3.80 - 5.10 x10(6)/mcL Hgb 13.0 12.0 - 15.6 gm/dL Hct 37.7 35.7 - 45.9 % MCV 91.4 82.5 - 99.8 fL MCH 31.6 27.0 - 34.3 pg MCHC 34.6 32.1 - 35.3 gm/dL RDW 12.8 11.5 - 15.0 % Platelet 225 144 - 423 x10(3)/mcL MPV 9.1 6.8 - 10.8 fL BASIC METABOLIC PANEL Result Value Ref Range Sodium 138 136 - 145 mmol/L Potassium 4.4 3.5 - 5.0 mmol/L Chloride 105 98 - 107 mmol/L Total CO2 20 (L) 22 - 29 mmol/L Anion Gap 13 7 - 16 mmol/L Calcium 9.3 8.6 - 10.2 mg/dL Glucose Lvl 165 (H) 74 - 100 mg/dL BUN 27 (H) 6 - 20 mg/dL Creatinine 1.39 (H) 0.51 - 1.30 mg/dL GFR Afr Am 47 GFR Non Afr Am 39 TROPONIN-T Result Value Ref Range Troponin-T <0.01 <=0.00 ng/mL DIFFERENTIAL Result Value Ref Range Neut Percent 49.0 % Lymph Percent 40.1 % Bradford Percent 7.2 % Eos Percent 2.8 % Baso Percent 0.9 % Neut# 3.8 1.8 - 7.7 x10(3)/mcL Lymph# 3.1 0.6 - 4.8 x10(3)/mcL Bradford# 0.6 0.0 - 1.3 x10(3)/mcL Eos# 0.2 0.0 - 0.5 x10(3)/mcL Baso# 0.1 0.0 - 0.2 x10(3)/mcL URINALYSIS Result Value Ref Range UA Color Yellow UA Appear Clear Clear UA Glucose Negative Negative UA Ketones Negative Negative UA Blood Negative Negative UA pH 6.0 5.0 - 8.0 UA Protein Negative Negative UA Urobilinogen 0.2 E.U./dL <=1 E.U./dL UA Nitrite Negative Negative UA Leuk Est Negative Negative UA Spec Grav 1.025 1.001 - 1.035 EK EKG 12 LEAD Impression Stationary ECG Study [facility] Interpretive Statements Normal EKG Electronically Signed On 12-29-2016 19:15:01 EDT by Miguel Angel Mayfield MD COURSE & MEDICAL DECISION MAKING Pertinent Labs & Imaging studies reviewed. (See chart for details) Vitals: 12/29/16 1642 12/29/16 1644 12/29/16 1758 12/29/16 1828 BP: 148/72 125/62 104/60 BP Location: Left arm Patient Position: Semi Fowlers Pulse: 66 66 60 Resp: 18 15 15 Temp: 97.9 ??F (36.6 ??C) TempSrc: Oral SpO2: 99% 98% 99% Weight: 170 lb (77.1 kg) 178 lb (80.7 kg) Height: 5' 5.5 (1.664 m) Pt presents to the ED with the above complaints. Patient remains with a dull ache in the chest havediscussed with Dr. Perdomo patient is to be admitted FINAL IMPRESSION Chest pain Electronically signed by: KAT Solano APRN, 12/29/2016 7:40 PM This chart was completed using voice recognition technology and may contain unintended errors Rufina Solano APRN 12/29/162001 Cosigned by Matilde Raphael MD at 12/31/2016 5:02 PM EDT documented in this encounter Plan of Treatment Not on file documented as of this encounter Procedures Procedure Name Priority Date/Time Associated Diagnosis Comments TROPONIN-T STAT 12/29/2016 7:06 PM EDT URINALYSIS STAT 12/29/2016 6:00 PM EDT TROPONIN-T STAT 12/29/2016 5:10 PM EDT DIFFERENTIAL STAT 12/29/2016 5:10 PM EDT CBC WITH DIFF STAT 12/29/2016 5:10 PM EDT BASIC METABOLIC PANEL STAT 12/29/2016 5:10 PM EDT XR CHEST PA AND LATERAL JESSICA 12/29/2016 5:08 PM EDT SALINE LOCK IV STAT 12/29/2016 5:02 PM EDT EK EKG 12 LEAD STAT 12/29/2016 4:43 PM EDT documented in this encounter Results * TROPONIN-T (12/29/2016 7:06 PM EDT) Troponin-T <0.01 <=0.00 ng/mL [facility] Comment: Values > or = 0.01 ng/mL have been shown to have prognostic value. Blood specimen (specimen) 12/29/2016 7:06 PM EDT 12/29/2016 7:09 PM EDT us Matilde Raphael MD CHEMISTRY ORDERABLES Final R esult Performing Organization Address [facility] Co de Phone Number [facility] [address] [place] [address] * URINALYSIS (12/29/2016 6:00 PM EDT) [facility] UA Color Yellow [facility] UA Appear Clear Clear [facility] UA Glucose Negative Negative [facility] UA Ketones Negative Negative [facility] UA Blood Negative Negative [facility] UA pH 6.0 5.0 - 8.0 [facility] Comment:Reference range felipe d for random specimens only. UA Protein Negative Negative [facility] UA Urobilinogen 0.2 E.U./dL <=1 E.U./dL [facility] UA Nitrite Negative Negative [facility] UA Leuk Est Negative Negative [facility] UA Spec Grav 1.025 1.001 - 1.035 [facility] Comment:Reference range felipe d for random specimens only. Urine specimen (specimen) URINE SPECIMEN COLLECTION, CLEAN CATCH / Unknown 12/29/2016 6:00 PM EDT 12/29/2016 6:00 PM EDT us Rufina Solano APRN URINE ORDERABLES Final Resu lt Performing Organization Address [facility] Co de Phone Number [facility] [address] [place] [address] * DIFFERENTIAL (12/29/2016 5:10 PM EDT) [facility] Neut Percent 49.0 % [facility] Lymph Percent 40.1 % [facility] Bradford Percent 7.2 % [facility] Eos Percent 2.8 % [facility] Baso Percent 0.9 % [facility] Neut# 3.8 1.8 - 7.7 x10(3)/[facility] Lymph# 3.1 0.6 - 4.8 x10(3)/[facility] Bradford# 0.6 0.0 - 1.3 x10(3)/[facility] Eos# 0.2 0.0 - 0.5 x10(3)/[facility] Baso# 0.1 0.0 - 0.2 x10(3)/[facility] Blood specimen (specimen) 12/29/2016 5:10 PM EDT 12/29/2016 5:17 PM EDT Rufina Solano APRN HEMATOLOGY ORDERABLES Final Result Performing Organization Address [facility] Co de Phone Number [facility] [address] [place] [address] * TROPONIN-T (12/29/2016 5:10 PM EDT) [facility] Troponin-T <0.01 <=0.00 ng/mL [facility] Comment: Values > or = 0.01 ng/mL have been shown to have prognostic value. Blood specimen (specimen) 12/29/2016 5:10 PM EDT 12/29/2016 5:17 PM EDT Rufina Solano APRN CHEMISTRY ORDERABLES Final Result Performing Organization Address [facility] de Phone Number [facility] [address] [place] [address] * (ABNORMAL) BASIC METABOLIC PANEL (12/29/2016 5:10 PM EDT) Sodium 138 136 - 145 mmol/L [facility] Potassium 4.4 3.5 - 5.0 mmol/L [facility] Chloride 105 98 - 107 mmol/L [facility] Total CO2 20(L) 22 - 29 mmol/L [facility] Anion Gap 13 7 - 16 mmol/L [facility] Calcium 9.3 8.6 - 10.2 mg/dL [facility] Glucose Lvl 165(H) 74 - 100 mg/dL [facility] BUN 27(H) 6 - 20 mg/dL [facility] Creatinine 1.39(H) 0.51 - 1.30 mg/dL [facility] GFR Afr Am 47 [facility] GFR Non Afr Am 39 [facility] Blood specimen (specimen) UPPER LIMB STRUCTURE / Unknown 12/29/2016 5:10 PM EDT 12/29/2016 5:17 PM EDT Rufina Solano APRN CHEMISTRY ORDERABLES Edited Result - Final Performing Organization Address [facility] Co de Phone Number [facility] [address] [place] [address] * CBC WITH AUTO DIFF (12/29/2016 5:10 PM EDT) WBC 7.7 4.0 - 11.0 x10(3)/[facility] RBC 4.12 3.80 - 5.10 x10(6)/[facility] Hgb 13.0 12.0 - 15.6 gm/dL [facility] Hct 37.7 35.7 - 45.9 % [facility] MCV 91.4 82.5 - 99.8 fL [facility] MCH 31.6 27.0 - 34.3 pg [facility] MCHC 34.6 32.1 - 35.3 gm/dL [facility] RDW 12.8 11.5 - 15.0 % [facility] Platelet 225 144 - 423 x10(3)/[facility] MPV 9.1 6.8 - 10.8 fL [facility] Blood specimen (specimen) UPPER LIMB STRUCTURE / Unknown 12/29/2016 5:10 PM EDT 12/29/2016 5:17 PM EDT Rufina Solano APRN HEMATOLOGY ORDERABLES Final Result Performing Organization Address City/[facility]/ZIP Co de Phone Number [facility] [address] [place] [address] * XR CHEST PA AND LATERAL (12/29/2016 5:08 PM EDT) Anatomical Region Laterality Modality Chest Radiographic Hailey ging 12/29/2016 5:08 PM EDT Impressions 12/29/2016 5:13 PM EDT No radiographic evidence of active cardiac or pulmonary disease process. Narrative 12/29/2016 5:13 PM EDT XR CHEST PA AND LATERAL 12/29/2016 5:08 PM History: 56 years .Female. ??-CHEST PAIN. Compare: None Lungs are clear. ??Heart and mediastinum appear normal. Thoracic spinal fusion with intact spinal rods and pedicle screws. Vertebral endplate spanning T5 and T6 appear anatomically positioned. Procedure Note Linwood Garcia MD - 12/29/2016 XR CHEST PA AND LATERAL 12/29/2016 5:08 PM History: 56 years .Female. -CHEST PAIN. Compare: None Lungs are clear. Heart and mediastinum appear normal. Thoracic spinal fusion with intact spinal rods and pedicle screws.Vertebral endplate spanning T5 and T6 appear anatomically positioned. IMPRESSION: No radiographic evidence of active cardiac or pulmonary disease process. us Matilde Raphael MD IMG DIAGNOSTIC IMAGING ORDER [place] Final Result * EK EKG 12 LEAD (12/29/2016 4:43 PM EDT) Anatomical Region Laterality Modality Electrocardiogra phy 12/29/2016 4:48 PM EDT Impressions 12/29/2016 7:15 PM EDT ? Stationary ECG Study ?[facility] [facility] ? Interpretive Statements ? Normal EKG ? Electronically Signed On 12-29-2016 19:15:01 EDT by Miguel Angel Mayfield MD Narrative Procedure Note Miguel Angel Mayfield MD - 12/29/2016 IMPRESS[address] ECG Study [facility] Interpretive Statements Normal EKG Electronically Signed On 12-29-2016 19:15:01 EDT by Miguel Angel Mayfield MD us Matilde Raphael MD IMG ECG ORDERABLES Final Res ult documented in this encounter Visit Diagnoses Diagnosis Chest pain, unspecified type- Primary documented in this encounter Administered Medications Inactive Administered Medications - up to 1 most recent administrations Medication Order MAR Action Action Date Dose Rate Site aspirin chewable tablet 324 mg 324 mg, Oral, ONCE, 1 dose, On 12/29/16 at 1715 Given 12/29/2016 5:13 PM EDT 324 mg sodium chloride 0.9% syringe 5-10 mL 5-10 mL, Intravenous, PRN, Starting on 12/29/16 at 1657, Until 12/29/16 at 2127, Line Care, Flush with 5-10 mL saline pre/post IVP, and 5 mL prior to IVPB administration. documented in this encounter Active and Recently Administered Medications Times are shown in EDT. Scheduled Medication Order 12/27/2016 12/28/2016 12/29/2016 aspirin chewable tablet 324 mg (COMPLETED) 324 mg, Oral, ONCE, 1 dose, On 12/29/16 at 1715 1713 (Given - Provid er: Master Marr RN) nitroGLYCERIN (NITROGLYN) 2 % ointment 1 Inch 1 Inch, Topical, ONCE, 1 dose, On 12/29/16 at 2000, Wipe off old dose, apply to chest wall 2040 (Incomplete - P rovider: Sena Payton, RN) PRN Medication Order 12/27/2016 12/28/2016 12/29/2016 sodium chloride 0.9% syringe 5-10 mL 5-10 mL, Intravenous, PRN, Starting on 12/29/16 at 1657, Until 12/29/16 at 2127, Line Care, Flush with 5-10 mL saline pre/post IVP, and 5 mL prior to IVPB administration. documented in this encounter Orders Medications Ordered That Marco ht Not Have Been Administered Count Last Ordered Date First Ordered Date nitroGLYCERIN (NITROGLYN) 2 % ointment 1 Inch 1 12/29/2016 sodium chloride 0.9% syringe 5-10 mL 1 12/06 Nursing Count Last Ordered Date First Orde red Date ADMISSION 1 12/29/2016 CARDIAC MONITORING 1 12/29/2016 ED CNC LASER OPERATOR REQUEST TREY REPORT 1 12/29/2016 ED ENTER ADMISSION ORDER 1 12/29/2016 PULSE OXIMETRY - NURSING 1 12/29/2016 IV Count Last Ordered Date First Orde red Date SALINE LOCK IV 1 12/29/2016 Transfer Count Last Ordered Date First Orde red Date BED REQUEST 1 12/29/2016 documented in this encounter Care Teams Model Home Sales Greeter Relationship Specialty Start Date End Date Lupillo Garcia MD PCP - General Family Medicine 11/10/12 documented as of this encounter
--- OUTSIDE RECORDS SUMMARY | 2024-06-22 10:22 | XMS_ITS | Encounter Summary ---
Author Organization [facility] [address] Care Team Providers Care Product Development Worker Name Role Phone Lupillo Garcia MD Primary Care Provider [phone]- [phone] Reason for Visit * Auth/Cert/Inpt - Closed Specialty Diagnoses / Procedures Referred By Contac t Referred To Contact Diagnoses Tear of medial cartilage or meniscus of knee, current Left knee- Tear of medial cartilage or meniscus of knee, current [836.0] Procedures LEFT KNEE ARTHROSCOPY PARTIAL MEDIAL MENISCECTOMY Referral ID Status Reason Start Date Expiration Date Visits Re quested Visits Authorized [id number] Closed 1 1 Encounter Details Date Type Department Care Team (Latest Contact Info) Description 08/13/2013 1:14 PM EST - 08/13/2013 11:59 PM [facility] [address] Leanna Manrique, WEIGHT AND BALANCE CONTROL AGENT [address] [place] [address] Alexander Whittington MD [address] [place] [address] Discharge Disposition: Home or Self Care Social [...] Procedure Name Priority Date/Time Associated Diagnosis Comments EK EKG 12 LEAD Routine 08/13/2013 1:14 PM EST documented in this encounter Results * EK EKG 12 LEAD (08/13/2013 1:14 PM EST) Anatomical Region Laterality Modality Electrocardiogra phy 08/12/2013 1:22 PM EST us Leanna Oneill WEIGHT AND BALANCE CONTROL AGENT IMG ECG ORDERABLES Fi nal Result documented in this encounter Visit Diagnoses Not on filedocumented in this encounter Care Teams Product Development Worker Relationship Specialty Start Date End Date Lupillo Garcia MD PCP - General Family Medicine 11/10/12 documented as of this encounter
--- OUTSIDE RECORDS SUMMARY | 2024-06-22 10:22 | XMS_ITS | Encounter Summary ---
Author Organization [place] [address] Care Team Providers Care Community Integration Specialist Name Role Phone Lupillo Garcia MD Primary Care Provider [phone] Encounter Details Date Type Department Care Team (Latest Contact Info) Description 04/12/2016 3:45 PM EDT - 04/12/2016 11:59 PM EDT Hospital Encounter [facility] [address] [place] [address] Diabetes mellitus without complication (HCC) (Primary Dx) Discharge Disposition: Home or Self [...] documented in this encounter Plan of Treatment Scheduled Orders Name Type Priority Associated Diagnoses Orde r Schedule OP VENIPUNCTURE CHARGE Lab Timed Diabetes mellitus without complication (HCC) One Time for 1 Occurrences starting 04/12/2016 until 04/12/2016 documented as of this encounter Procedures Procedure Name Priority Date/Time Associated Diagnosis Comments LDL, CALCULATED Callback 04/12/2016 4:13 PM EDT LIPID PANEL REFLEX Callback 04/12/2016 4: 13 PM EDT Diabetes mellitus without complication (HCC) DIFFERENTIAL Callback 04/12/2016 4:13 PM EDT CBC WITH DIFF Callback 04/12/2016 4:13 PM EDT Diabetes mellitus without complication (HCC) HEMOGLOBIN A1C Callback 04/12/2016 4:13 PM EDT Diabetes mellitus without complication (HCC) COMPREHENSIVE METABOLIC PANEL Callback 04/12/2016 4:13 PM EDT Diabetes mellitus without complication (HCC) documented in this encounter Results * LDL, CALCULATED (04/12/2016 4:13 PM EDT) [facility] LDL Calculated 100 <=100 mg/dL [facility] Comment: ??< 100 ?Optimal 100 - 129 ? Near or above optimal 130 - 159 ? Borderline High 160 - 189 ? High >= 190 ?Very High Blood specimen (specimen) 04/12/2016 4:13 PM EDT 04/13/2016 7:16 PM EDT us Lupillo Garcia MD CHEMISTRY ORDERABLES Final Result [facility] [address] [place] [address] * (ABNORMAL) DIFFERENTIAL (04/12/2016 4:13 PM EDT) [facility] Neut Percent 48.0 % [facility] Lymph Percent 40.9 % [facility] [place] Percent 7.5 % [facility] Eos Percent 2.7 % [facility] Baso Percent 0.9 % [facility] Neut# 5.1(H) 2.2 - 4.8 x10(3)/mcL [facility] Lymph# 4.3(H) 1.3 - 2.9 x10(3)/mcL [facility] [place]# 0.8 0.3 - 0.8 x10(3)/mcL [facility] Eos# 0.3(H) 0.0 - 0.2 x10(3)/mcL [facility] Baso# 0.1 0.0 - 0.1 x10(3)/mcL [facility] Blood specimen (specimen) 04/12/2016 4:13 PM EDT 04/12/2016 4:13 PM EDT us Lupillo Garcia MD HEMATOLOGY ORDERABLES Final Result [facility] [address] [address] * (ABNORMAL) CBC WITH AUTO DIFF (04/12/2016 4:13 PM EDT) WBC 10.6 4.8 - 10.8 x10(3)/mcL [facility] RBC 4.22 4.20 - 5.40 x10(6)/mcL [facility] Hgb 13.5 12.0 - 16.0 gm/dL [facility] Hct 38.8 37.0 - 47.0 % [facility] MCV 92.0 80.0 - 99.0 fL [facility] MCH 31.9(H) 27.0 - 31.0 pg [facility] MCHC 34.7 32.0 - 36.0 gm/dL [facility] RDW 12.9 11.5 - 15.5 % [facility] Platelet 247 130 - 400 x10(3)/mcL [facility] MPV 9.2 7.4 - 10.4 fL [facility] Blood specimen (specimen) UPPER LIMB STRUCTURE / Unknown 04/12/2016 4:13 PM EDT 04/12/2016 4:13 PM EDT Narrative [facility] - 04/12/2016 4:44 PM EDT Fax to [phone] us Lupillo Garcia MD HEMATOLOGY ORDERABLES Final Result [facility] [address] [address] * (ABNORMAL) LIPID PANEL REFLEX (04/12/2016 4:13 PM EDT) Cholesterol 196 <=200 mg/dL [facility] Comment: < 200 ?Desirable 200 - 239 ? Borderline High >= 240 ?High Triglyceride 363(H) <=150 mg/dL [facility] Comment: < 150 ? Normal 150 - 199 ?Borderline High 200 - 499 ?High ??>= 500 ? Very High HDL 23(L) >=40 mg/dL [facility] Comment: ?? > 60 ?Optimal 40 - 60 ?Acceptable ?? < 40 ?Low Blood specimen (specimen) UPPER LIMB STRUCTURE / Unknown 04/12/2016 4:13 PM EDT 04/13/2016 7:16 PM EDT Narrative [facility] - 04/13/2016 7:46 PM EDT Fax to [phone] us Lupillo Garcia MD CHEMISTRY ORDERABLES Final Result Performing Organization Address City/State/[facility] Co de Phone Number [facility] [address] [place] [address] * (ABNORMAL) COMPREHENSIVE METABOLIC PANEL (04/12/2016 4:13 PM EDT) Sodium 139 136 - 145 mmol/L [facility] Potassium 4.2 3.5 - 5.0 mmol/L [facility] Chloride 106 98 - 107 mmol/L [facility] Total CO2 20(L) 22 - 29 mmol/L [facility] Anion Gap 13 7 - 16 mmol/L [facility] Calcium 9.7 8.6 - 10.2 mg/dL [facility] Glucose Lvl 63(L) 74 - 100 mg/dL [facility] BUN 35(H) 6 - 20 mg/dL [facility] Creatinine 1.38(H) 0.51 - 1.30 mg/dL [facility] Albumin 4.5 3.5 - 5.2 gm/dL [facility] Total Protein 7.9 6.4 - 8.3 gm/dL [facility] Bili Total 0.3 0.1 - 1.3 mg/dL [facility] AST 18 <=40 IU/L [facility] ALT 18 <=41 IU/L [facility] Alk Phos 48 35 - 104 IU/L [facility] GFR Afr Am 48 [facility] GFR Non Afr Am 40 [facility] Blood specimen (specimen) UPPER LIMB STRUCTURE / Unknown 04/12/2016 4:13 PM EDT 04/12/2016 4:13 PM EDT Narrative [facility] - 04/12/2016 6:03 PM EDT Fax to [phone] us Lupillo Garcia MD CHEMISTRY ORDERABLES Final Result [facility] [address] [address] * HEMOGLOBIN A1C (04/12/2016 4:13 PM EDT) Hgb A1c 6.8 <=7.0 % [facility] Comment: Reference Interval for Hgb A1c Hgb A1c ?Interpretation ? < 6.0 ?Non-Diabetic Range 6.0 - 7.0 ? ADA Therapeutic Target ??> 7.0 ? Action suggested Blood specimen (specimen) UPPER LIMB STRUCTURE / Unknown 04/12/2016 4:13 PM EDT 04/13/2016 7:16 PM EDT Narrative [facility] - 04/13/2016 7:41 PM EDT Fax to [phone] us Lupillo Garcia MD CHEMISTRY ORDERABLES Final Result [facility] [address] [place] [address] documented in this encounter Visit Diagnoses Diagnosis Diabetes mellitus without complication (HCC)- Primary Type II or unspecified type diabetes mellitus without mention of complication, not stated as uncontrolled documented in this encounter Care Teams Community Integration Specialist Relationship Specialty Start Date End Date Lupillo Garcia MD PCP - General Family Medicine 11/10/12 documented as of this encounter
--- OUTSIDE RECORDS SUMMARY | 2024-06-22 10:22 | XMS_ITS | Encounter Summary ---
Author Organization [place] [address] Care Team Providers Care Shirt Hemmer Name Role Phone Unavailable Primary Care Provider Unavailabl e Encounter Details Date Type Department Care Team (Late st Contact Info) Description 09/18/2000 9:48 AM EST - 09/18/2000 11:59 PM EST Hospital Encounter [facility] Darius Mckeon MD [address] [place] [address] Social History Tobacco Use Types Packs/Day Years [...]
--- OUTSIDE RECORDS SUMMARY | 2024-06-22 10:22 | XMS_ITS | Encounter Summary ---
Author Organization [place] [address] Care Team Providers Care Home Restoration Service Cleaner Name Role Phone Unavailable Primary Care Provider Unavailabl e Encounter Details Date Type Department Care Team (Late st Contact Info) Description 11/06/2001 3:08 AM EDT - 11/06/2001 2:00 PM EDT Hospital Encounter [facility] Generic, Historical Provider Social History Tobacco Use Types Packs/Day Years [...]
--- OUTSIDE RECORDS SUMMARY | 2024-06-22 10:22 | XMS_ITS | Encounter Summary ---
Author Organization [place] [address] Care Team Providers Care Student Life Coordinator Name Role Phone Unavailable Primary Care Provider Unavailabl e Encounter Details Date Type Department Care Team (Late st Contact Info) Description 09/13/2002 2:02 PM EST - 09/13/2002 11:59 PM EST Hospital Encounter [facility] Generic, Historical Provider Social History Tobacco Use [...]
--- OUTSIDE RECORDS SUMMARY | 2024-06-22 10:22 | XMS_ITS | Encounter Summary ---
Author Organization [place] [address] Care Team Providers Care Surgical Forceps Fabricator Name Role Phone Lupillo Garcia MD Primary Care Provider [phone]- [phone] Reason for Visit * MRI/CAT Scan (Routine) - Closed Specialty Diagnoses / Procedures Referred By Contac t Referred To Contact Radiology Diagnoses Knee pain Fall Procedures MRI KNEE LEFT WO CONTRAST MRI LOWER EXT NONJT WO CONTRAST Lupillo Garcia MD [address] [place] [address] Phone: tel: fax: [facility] [address] [place] [address] Phone: tel: Referral ID Status Reason Start Date Expiration Date Visits Re quested Visits Authorized [id number] Closed 11/18/2012 05/17/2013 1 1 Encounter Details Date Type Department Care Team (Latest Contact Info) Description 11/18/2012 12:38 PM EDT - 11/18/2012 11:59 PM EDT Hospital Encounter [facility] [address] [place] [address] Lupillo Garcia MD [address] [place] [address] Knee pain; Fall Discharge Disposition: Home or Self Care Social History Tobacco Use Types Packs/Day Years Used Date Smoking Tobacco: Never Assessed Comments Unknown Sex and Gender Information Value Date Recorded Sex Assigned at Not on file Legal Sex Female 11:13 PM EDT Gender Identity Not on file Sexual Orientation Not on file documented as of this encounter Discharge Disposition Disposition Code Departure Means Destination Home or Self Care documented in this encounter Plan of Treatment Not on file documented as of this encounter Procedures Procedure Name Priority Date/Time Associated Diagnosis Comments MRI KNEE LEFT WO CONTRAST Routine 11/18/2012 1:24 PM EDT Knee pain Fall documented in this encounter Results * MRI KNEE LEFT WO CONTRAST (11/18/2012 1:24 PM EDT) Anatomical Region Laterality Modality Knee Magnetic Resonan ce 11/18/2012 Impressions 11/19/2012 11:47 AM EDT IMPRESSION: 1. Undersurface tear peripherally of the posterior horn of the medial meniscus with hoop mechanism compromise. 2. Degenerative disease. 3. Oliver's cyst. Narrative 11/19/2012 11:47 AM EDT EXAMINATION IS AN MRI OF THE LEFT KNEE INDICATIONS: Pain. HISTORY: Pain. TECHNIQUE: Long and short imaging parameters were obtained in the sagittal, coronal and axial orientation. Examination demonstrates an undersurface tear involving the posterior horn of the medial meniscus. Early meniscal substance extrusion is noted indicating compromise of the hoop mechanism. The lateral meniscus is grossly intact. The ACL and PCL have normal course, morphology and signal characteristics. The medial and lateral stabilizers are intact. There is degenerative disease in the patellofemoral compartment. Diffuse articular cartilage thinning and blistering are seen on the patellar side of the joint space with early cortical remodeling and subcortical cyst formation. Less prominent disease is seen about the central portion of the trochlea. The chondral surfaces in the lateral compartment are intact. The chondral surfaces in the medial compartment are grossly intact. 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 Procedure Note Ermias Vera MD - 11/19/2012 EXAMINATION IS AN MRI OF THE LEFT KNEE INDICATIONS: Pain. HISTORY: Pain. TECHNIQUE: Long and short imaging parameters were obtained in thesagittal, coronal and axial orientation. Examination demonstrates an undersurface tear involving the posterior hornof the medial meniscus. Early meniscal substance extrusion is noted indicatingcompromise of the hoop mechanism. The lateral meniscus is grossly intact. The ACL and PCL havenormal course, morphology and signal characteristics. The medial and lateral stabilizersare intact. There is degenerative disease in the patellofemoral compartment. Diffuse articularcartilage thinning and blistering are seen on the patellar side of the joint space with earlycortical remodeling and subcortical cyst formation. Less prominent disease is seen about thecentral portion of the trochlea. The chondral surfaces in the lateral compartment are intact.The chondral surfaces in the medial compartment are grossly intact. 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 IMPRESSION: 1. Undersurface tear peripherally of the posterior horn of the medialmeniscus with hoop mechanism compromise. 2. Degenerative disease. 3. Oliver's cyst. us Lupillo Garcia MD IMG MRI ORDERABLES Final Re sult documented in this encounter Visit Diagnoses Diagnosis Knee pain Pain in joint, lower leg Fall Unspecified fall documented in this encounter Care Teams Surgical Forceps Fabricator Relationship Specialty Start Date End Date Lupillo Garcia MD PCP - General Family Medicine 11/10/12 documented as of this encounter
--- OUTSIDE RECORDS SUMMARY | 2024-06-22 10:22 | XMS_ITS | Encounter Summary ---
Author Organization [place] [address] Care Team Providers Care Food Safety Auditor Name Role Phone Lupillo Garcia MD Primary Care Provider [phone]- [phone] Reason for Visit * Auth/Cert/Inpt - Closed Specialty Diagnoses / Procedures Referred By Contdorie t Referred To Contact Diagnoses Tear of medial cartilage or meniscus of knee, current Left knee- Tear of medial cartilage or meniscus of knee, current [836.0] Procedures LEFT KNEE ARTHROSCOPY PARTIAL MEDIAL MENISCECTOMY Referral ID Status Reason Start Date Expiration Date Visits Re quested Visits Authorized [id number] Closed 1 1 Encounter Details Date Type Department Care Team (Latest Contact Info) Description 08/16/2013 11:00 AM [email or web address] - 08/16/2013 11:59 PM [facility] Encounter [facility] Physical Therapy [place] [id number] Ronel Khalil, PT [address] [place] [address] Discharge Disposition: Home or Self Care Social [...] or Self Care documented in this encounter Progress Notes * Unknown, Unknown - 08/16/2013 12:32 PM EST documented in this encounter Miscellaneous Notes * Plan of Care - Ronel Khalil, PT - 08/16/2013 11:10 AM EST Images from the original note were not included. Pre-op Physical Therapy Evaluation 08/16/2013 Tyra Romero 1960 [id number] Subjective: History: Patient is a 53 yo female referred to OPPT by Dr. Whittington for left knee Other: scope with PMM pre-op crutch training instructions. Onset Date: Over 1 year, worse since 05-16-13 Patient is scheduled to undergo above procedure on 08-19-13 Pain Screen: Pain anywhere other than operative joint? no Location: - Pain Scale: - Past 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 Diagnosis Date ??? Asthma ??? Unspecified sleep apnea no machine ??? Heart murmur ??? Heartburn ??? Headache ??? Syncope and collapse ??? Diabetes mellitus ??? Encounter for blood transfusion ??? Depression Past Surgical History Procedure Laterality Date ??? Back surgery ??? Knee surgery right knee scope ??? Foot surgery right x2 left x1 ??? Hand surgery LCTR left trigger finger ??? Hiatal hernia repair x3 ??? Hysterectomy Current outpatient prescriptions:tiZANidine (ZANAFLEX) 4 mg tablet, Take 4 mg by mouth 3 times daily. Take 11/2 tabs as needed, Disp: , Rfl: ; estrogens, conjugated, (PREMARIN) 0.3 mg tablet, Take 0.3 mg by mouth daily., Disp: , Rfl: ; fenofibrate (LOFIBRA) 160 mg tablet, Take 160 mg by mouth daily., Disp: , Rfl: ; omeprazole (PRILOSEC) 20 mg, Take 20 mg by mouth daily., Disp: , Rfl: sulfamethoxazole-trimethoprim (BACTRIM DS) 800-160 mg per tablet, Take 1 Tab by mouth daily., Disp:, Rfl: ; promethazine (PHENERGAN) 25 mg tablet, Take 25 mg by mouth every 6 hours as needed for Nausea., Disp: , Rfl: ; gabapentin (NEURONTIN) 300 mg capsule, Take 300 mg by mouth 3 times daily., Disp: , Rfl: ; buPROPion (WELLBUTRIN SR) 150 mg SR tablet, Take 150 mg by mouth 2 times daily., Disp: ,Rfl: topiramate (TOPAMAX) 50 mg tablet, Take 50 mg by mouth 2 times daily., Disp: , Rfl: ; metoprolol (LOPRESSOR) 25 mg tablet, Take 25 mg by mouth 2 times daily., Disp: , Rfl: ; HYDROcodone-acetaminophen(LORTAB) 10-500 mg, Take 1 Tab by mouth every 6 hours as needed., Disp: , Rfl: ; albuterol (PROVENTIL HFA;VENTOLIN HFA) 90 mcg/actuation inhaler, Inhale 2 Puffs into the lungs every 6 hours as needed for Wheezing., Disp: , Rfl: SUMAtriptan (IMITREX) 100 mg tablet, Take 100 mg by mouth once as needed for Migraine., Disp: , Rfl: ; insulin glargine (LANTUS) 100 unit/mL injection, Subcutaneous (Inject under the skin) 20 Units nightly. 15 units am, Disp: , Rfl: ; INSULIN LISPRO (HUMALOG SUBQ), Subcutaneous (Inject under the skin). Sliding scale, Disp: , Rfl: Social: lives in a house with and 4 yo old son, friend also staying with them Stairs: Ramped entrance, no stairs inside Objective: 1. Observation: Short female (5' 1/2 ), overwt WF, presents with 2. Mental Status: Oriented 3. Gait Pattern: No significant deviations 4. Bed Mobility: NT 5. Transfers: independent 6. ROM: Hip: WFL for gait , Knee: WFL for gait 7. Strength: UEs: WFL for gait LEs: WFL for gait Rx: Initial evaluation completed: Instructed patient in ambulation with crutches or walker using WBAT, Stair training, Provided appropriately sized assembled crutches/adjusted patient's crutches and Reviewed crutch/walker training, written and verbal instructions given Provided appropriately sized crutches Also instructed in PWB Assessment: Good understanding of crutch use. Plan: Discharged from OPPT at this time: Patient has met the following goals: Ambulation with crutches Yes, transfers Yes. -Ronel Khalil PT Time In/Out: [id number] Simple eval: 10 min Gait trainin min * Plan of Care - Amina Johnson, PT - 08/12/2013 3:02 PM EST Images from the original note were not included. Pre-op Physical Therapy Evaluation 08/12/2013 Tyra Romero 1960 [id number] Pt was scheduled for crutch training following PAT appt today, but did not show. Called PAT, they said pt left PAT an hour ago to come to PT. Called pt on her cell phone, she forgot about PT, is unable to make it back today. Asked if she could schedule an appt for Friday. Rescheduled for 08-16-13 at 11:00am with Ronel Khalil PT. Amina Johnson, PT documented in this encounter Plan of Treatment Not on file documented as of this encounter Visit Diagnoses Not on filedocumented in this encounter Care Teams Food Safety Auditor Relationship Specialty Start Date End Date Lupillo Garcia MD PCP - General Family Medicine 11/10/12 documented as of this encounter
--- OUTSIDE RECORDS SUMMARY | 2024-06-22 10:22 | XMS_ITS | Encounter Summary ---
Author Organization [facility] [place] [address] Care Team Providers Care Gas Tester Name Role Phone Lupillo Garcia MD Primary Care Provider [phone] Encounter Details Date Type Department Care Team (Latest Contact Info) Description 09/12/2015 11:45 AM EST - 09/12/2015 11:59 PM [facility] Hospital Encounter [facility] [address] [place] [address] Neck pain; Midline low back pain, with sciatica presence unspecified Discharge Disposition: Home or Self Care Social [...] Name Priority Date/Time Associated Diagnosis Comments XR LUMBAR SPINE AP AND LATERAL Routine 09/12/2015 12:11 PM EST Midline low back pain, with sciatica presence unspecified XR CERVICAL SPINE AP LATERAL ODONTOID AND OBLIQUE Routine 09/12/2015 12:11 PM EST Neck pain documented in this encounter Results * XR LUMBAR SPINE AP AND LATERAL (09/12/2015 12:11 PM EST) Anatomical Region Laterality Modality L-spine Radiographic Hailey ging 09/12/2015 12:1 1 PM EST Impressions 09/12/2015 1:41 PM EST IMPRESSION: 1. Findings favoring degenerative anterolisthesis of L4 and L5. There is suggestion of lucencies in the L5 pars region which may suggest stress or pars defects. Oblique radiographs would be confirmatory for both levels. 2. Degenerative disc, endplate, and facet joint changes most prominent L4-L5 and L5-S1. 3. Bilateral sacroiliac degenerative joint changes. 4. Atherosclerosis. Narrative 09/12/2015 1:41 PM EST EXAMINATION: ??XR LUMBAR SPINE AP AND LATERAL DATE: ??09/12/2015 12:11 PM HISTORY: ??Low back pain. COMPARISON: ??None. TECHNIQUE: ??3 views of the lumbar spine. FINDINGS: ??There are 5 nonrib-bearing lumbar type vertebral bodies. There is no compression deformity. There is a 5 mm anterolisthesis of L4 and L5, favored to be degenerative. There is suggestion of a lucency in the L5 pars interarticularis region which may be projectional. Intervertebral disc height loss is most advanced L4-L5 and L5-S1, and there is facet hypertrophy from L3 through the lumbosacral junction. Sacroiliac degenerative joint changes are noted. Aortic vascular calcifications are noted, as are right upper quadrant cholecystectomy clips. Procedure Note Mason Maloney MD - 09/12/2015 EXAMINATION: XR LUMBAR SPINE AP AND LATERAL DATE: 09/12/2015 12:11 PM HISTORY: Low back pain. COMPARISON: None. TECHNIQUE: 3 views of the lumbar spine. FINDINGS: There are 5 nonrib-bearing lumbar type vertebral bodies. Thereis no compression deformity. There is a 5 mm anterolisthesis of L4 and L5,favored to be degenerative. There is suggestion of a lucency in the L5 pars interarticularis region which may be projectional. Intervertebral discheight loss is most advanced L4-L5 and L5-S1, and there is facet hypertrophy fromL3 through the lumbosacral junction. Sacroiliac degenerative joint changesare noted. Aortic vascular calcifications are noted, as are right upperquadrant cholecystectomy clips. IMPRESSION: 1. Findings favoring degenerative anterolisthesis of L4 and L5. There is suggestion of lucencies in the L5 pars region which may suggest stress orpars defects. Oblique radiographs would be confirmatory for both levels. 2. Degenerative disc, endplate, and facet joint changes most prominentL4-L5 and L5-S1. 3. Bilateral sacroiliac degenerative joint changes. 4. Atherosclerosis. us Lupillo Garcia MD [facility] Final Result * XR CERVICAL SPINE AP LATERAL ODONTOID AND OBLIQUE (09/12/2015 12:11 PM EST) Anatomical Region Laterality Modality C-spine Radiographic Hailey ging 09/12/2015 12:1 1 PM EST Impressions 09/12/2015 1:26 PM EST IMPRESSION: Mild to moderate degenerative changes. Narrative 09/12/2015 1:26 PM EST XR CERVICAL SPINE AP LATERAL ODONTOID AND OBLIQUE ??09/12/2015 12:11 PM HISTORY: ??M54.4-[id number] Postoperative changes in the thoracic spine with transpedicular screws and posterior rods. Cervical alignment is anatomic. There is mild to moderate degenerative changes predominantly at C5 and C6. There is posterior facet arthropathy. There is no acute fracture or dislocation. No bone erosion or destruction is seen. Procedure Note Paras Ventura MD - 09/12/2015 XR CERVICAL SPINE AP LATERAL ODONTOID AND OBLIQUE 09/12/2015 12:11 PM HISTORY: [id number] Postoperative changes in the thoracic spine with transpedicular screwsand posterior rods. Cervical alignment is anatomic. There is mild to moderate degenerativechanges predominantly at C5 and C6. There is posterior facet arthropathy. There isno acute fracture or dislocation. No bone erosion or destruction is seen. IMPRESSION: Mild to moderate degenerative changes. Lupillo [facility] Final Result documented in this encounter Visit Diagnoses Diagnosis Neck pain Cervicalgia Midline low back pain, with sciatica presence unspecified documented in this encounter Care Teams Gas Tester Relationship Specialty Start Date End Date Lupillo Garcia MD PCP - General Family Medicine 11/10/12 documented as of this encounter
--- OUTSIDE RECORDS SUMMARY | 2024-06-22 10:22 | XMS_ITS | Encounter Summary ---
Author Organization [facility] [place] [address] Care Team Providers Care Regulatory Affairs Associate Name Role Phone Unavailable Primary Care Provider Unavailabl e Encounter Details Date Type Department Care Team (Late st Contact Info) Description 08/30/2002 2:32 PM EST - 08/30/2002 3:20 PM EST Hospital Encounter [facility] Paras Brooks MD [address] [place] [address] [place] [address] Social History Tobacco Use Types Packs/Day Years [...]
--- OUTSIDE RECORDS SUMMARY | 2024-06-22 10:22 | XMS_ITS | Encounter Summary ---
Author Organization [facility] [address] Care Team Providers Care Chief Embalmer Name Role Phone Lupillo Garcia MD Primary Care Provider [phone] Reason for Visit * Auth/Cert/Inpt - Closed Specialty Diagnoses / Procedures Referred By Contac t Referred To Contact Diagnoses Tear of medial cartilage or meniscus of knee, current Left knee- Tear of medial cartilage or meniscus of knee, current [836.0] Procedures LEFT KNEE ARTHROSCOPY PARTIAL MEDIAL MENISCECTOMY Referral ID Status Reason Start Date Expiration Date Visits Re quested Visits Authorized [id number] Closed 1 1 Encounter Details Date Type Department Care Team (Latest Contact Info) Description 08/19/2013 5:31 AM EST - 08/19/2013 12:00 PM EST Hospital Encounter [facility]G SAME DAY SURGERY [place] [place] [address] Alexander Whittington MD [address] [place] [address] Discharge Disposition: Home or Self [...] Sign Reading Time Taken Comments Blood Pressure 124/68 08/19/2013 11:17 AM EST Pulse 69 08/19/2013 11:17 AM EST Temperature 36.3 ??C (97.4 ??F) 08/19/2013 10:[address] Respiratory Rate 20 08/19/2013 11:17 AM EST Oxygen Saturation 98% 08/19/2013 10:48 AM EST Inhaled Oxygen Concentration - - Weight - - Height - - Body Mass Index - - documented in this encounter Discharge Instructions * Discharge Instructions* Amina Guillen RN - 08/19/2013 11:30 AM EST Elevation/ice prn; Crutches/walker Weight Bearing As Tolerated [facility] Discharge Instructions - Following Surgery Best wishes are extended to you on behalf of [facility] as you are discharged. Because we are most concerned with your health, we suggest you carefully read and take an active role in your overall health and follow these instructions. 1. A responsible adult, 18 years or older must be in attendance following discharge. 2. Rest quietly today. 3. Drink liquids first, minimum 6 glasses water in first 24 hours. If no nausea in 1 hour, proceed with a light meal. 4. Do not drive or operate any machinery for a minimum of 24 hours or as instructed. 5. No alcoholic beverages for 24 hours. 6. Do not make any legal or important decisions for the next 24 hours. 7. Check temperature daily for 5 days, call your physician if greater than 101. 8. Notify your physician if any of these symptoms occur: rash, hives, difficulty breathing, or severe nausea & vomiting. 9. Contact your physician for questions concerning home medications. 10. If pain intensifies or pain unrelieved with pain medications as ordered, call your physician. 11. If physician is unavailable, go to the Emergency Room. Generic Instructions for Pain Medicine Some pain medicine may change the way you think and make judgments. You might not be able to do some things safely. Take your medicine as advised by your doctor if you have pain. DO NOT take them if you do not have pain unless your doctor advised you to. After you start the medicine and 8 hours after you stop, DO NOT: ?? Drive. ?? Use machines. ?? Use power tools. ?? Sign legal papers. HOME CARE Do not drink alcohol while taking pain medicines. Do not take sleeping pills while taking pain medicines. Do not take other medicines at the same time as pain medicines unless your doctor tells you it is okay to do so. IF YOUR PAIN MEDICINE IS A NARCOTIC: ?? Use a stool softener such as Metamucil if you cannot go the the bathroom. This can happen when you take certain pain medicines. ?? Eat more fruits and vegetables when you take your medicine. This may help you go to the bathroom. ?? You may get confused when taking your medicine. Write down when you take your medicine. ?? Before taking your next pill(s), look at the last time you took your pill(s). ?? Writing the times down will help you to not take too much (overdose). GET HELP IF: ?? Your medicine is not helping to relieve pain. ?? You throw up (vomiting) and/or have watery poop (diarrhea). ?? You notice belly pain that you did not have before. ?? You feel dizzy or pass out. ?? You feel you are having other problems that might be caused by your medicine. RESUME DIABETIC DIET ------- CHECK YOUR BLOOD SUGAR ----- RESUME DIABETIC MEDICINES AT SCHEDULED TIMES LONG YOU ARE EATING. Your blood sugar at 7:44am was 116. Your blood sugar at 9:07 was 151. documented in this encounter Medications at Time [...] daily. 7 documented as of this encounter Ordered Prescriptions Prescription Sig Dispense Quantity Refills Last Filled Start Date End Date oxyCODONE (ROXICODONE) 5 mg tablet Take 1 Tab by mouth every 8 hours as needed for Pain for 20 doses. 20 Tab 0 08/19/2013 12/30/2016 documented in this encounter Discharge Disposition Disposition Code Departure Means Destination Home or Self Residential documented in this encounter H&P Notes * Unknown, Unknown - 08/21/2013 9:19 AM EST * Evelia Guillen MD - 08/19/2013 7:56 AM EST Surgery H&P Chief complaint: Left knee- Tear of medial cartilage or meniscus of knee, current [836.0] HPI: This is a 53 y.o. year old female patient who presents today for surgical treatment of the above problem. Pt c/o pain and swelling in her left knee. She also has numbness in her toes r/t back surgery. History & Physical Past 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 Diagnosis Date ??? Asthma ??? Unspecified sleep apnea no machine ??? Heart murmur ??? Heartburn ??? Headache ??? Syncope and collapse ??? Diabetes mellitus ??? Encounter for blood transfusion ??? Depression CRI Past Surgical History Procedure Laterality Date ??? Back surgery ??? Knee surgery right knee scope ??? Foot surgery right x2 left x1 ??? Hand surgery LCTR left trigger finger ??? Hiatal hernia repair x3 ??? Hysterectomy MEDS= See EPIC Allergies Allergen Reactions ??? Advil (Ibuprofen) Other (See Comments) seizures ??? Sharmaine (Fexofenadine) Other (See Comments) seizures ??? Augmentin (Amoxicillin-Pot Clavulanate) Other (See Comments) seizures ??? Axid (Nizatidine) Other (See Comments) seizures ??? Compazine (Prochlorperazine) Other (See Comments) seizures ??? Darvocet A500 (Propoxyphene N-Acetaminophen) Other (See Comments) seizures ??? Reglan (Metoclopramide) Other (See Comments) seizures ??? Toradol (Ketorolac) Rash ??? Tramadol Rash ??? Zofran Odt (Ondansetron) Other (See Comments) seizures History Social History ??? Marital Status: Spouse Name: N/A Number of Children: N/A ??? Years of Education: N/A Occupational History ??? Not on file. Social History Main Topics ??? Smoking status: Never Smoker ??? Smokeless tobacco: Never Used ??? Alcohol Use: No ??? Drug Use: No ??? Sexually Active: Not on file Other Topics Concern ??? Not on file Social History Narrative ??? No narrative on file No family history on file. Review of Systems As above and all other relevant systems are negative. She reprints she has sleep apnea but does notuse C-PAP. Filed Vitals: 08/19/13 0549 BP: 138/80 Pulse: 60 Temp: 97.2 ??F (36.2 ??C) Resp: 18 Physical Exam General: No acute distress. Neuro: alert. oriented Eyes: pupils equal. Extra-ocular muscles intact Mouth: Oral mucosa moist. Nose: midline. Good air movement Neck: supple. Chest: symmetric excursion with respiration. Respirations unlabored and regular. CTA B Heart: Regular rate and rhythm w/o R/G/M, no bruits Abdomen: soft, non-tender, non-distended, +bowel sounds, obese Extremities: no C/C/E, 2+DP Relevant Labs and Imaging reviewed. Lab Results Component Value Date WBC 6.9 08/12/2013 HGB 12.8 08/12/2013 HCT 36.5 08/12/2013 PLT 227 08/12/2013 NA 139 08/12/2013 K 4.0 08/12/2013 CL 101 08/12/2013 CREATININE 1.63* 08/12/2013 BUN 23* 08/12/2013 CO2 24 08/12/2013 GLU 97 08/12/2013 Assessment: Left knee- Tear of medial cartilage or meniscus of knee, current [836.0] Plan: Procedure(s): LEFT KNEE ARTHROSCOPY PARTIAL MEDIAL MENISCECTOMY per Alexander Whittington MD Pt given a b-mandi pre op Pre op TMA=334 reported per nursing. documented in this encounter Procedure Notes * Unknown, Unknown - 08/21/2013 9:19 AM ESTAssociated Order(s): SCANNED PRE/POST PROCEDURES * Unknown, Unknown - 08/21/2013 9:19 AM ESTAssociated Order(s): SCANNED ANESTHESIA FORMS * Alexander Whittington MD - 08/19/2013 8:59 AM EST [facility]/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 OPERATIONS: Arthroscopic partial medial meniscectomy with chondroplasty of the patella and medial femoral condyle of the left knee. SURGEON: Alexander Whittington M.D. ANESTHESIA: General. INDICATIONS FOR PROCEDURE: Ms. Greco is a 53-year-old female with a long history of left knee pain. Examination and workup, including MRI scan, were consistent with early arthritis, chondromalacia with a small medial meniscal tear. She failed all attempts at conservative treatment. Consequently, arthroscopic intervention was recommended. The benefits and risks of the procedure were explained to the patient and she readily accepted. OPERATIVE PROCEDURE/SUMMARY: Patient was brought to the operating room and placed supine on the operating table. After successful induction of general anesthesia, a tourniquet was placed about her upper left thigh. Patient's left knee was then sterilely prepped and draped. The leg was then exsanguinated and the tourniquet was inflated to 300 mmHg. Arthroscopic portals were then made just below the patella. Arthroscopy was begun. Suprapatellar pouch was examined first. No loose bodies or significant plicas were noted. Scope was then brought into the patellofemoral joint. The patella appeared to track well. Patient was noted to have a 1 x 2 cm area of grade 3 chondromalacia involving the lateral facet of the patella. This was lightly debrided using the arthroscopic shaver. There also was a 1 x 2 cm area of grade 3 chondromalacia involving the distal femoral groove. This also was lightly debrided. Scope was next directed into the medial gutter. No loose bodies were noted. Scope was then brought into the medial compartment. The medial meniscus was probed. Patient was noted to have an 8 mm beak-type tear of the posterior horn of the medial meniscus. This was debrided using the arthroscopic shaver. The remainder of the meniscus appeared to be intact. Patient also was noted to have some grade 2 and early grade 3 chondromalacia involving the medial femoral condyle. This was lightly debrided using the arthroscopic shaver. Scope was then brought into the intercondylar notch. The anterior cruciate ligament was probed and found to be intact. Scope was then brought into the lateral compartment. Articular surface, as well as lateral meniscus was completely intact. Scope was then brought into the lateral gutter. No loose bodies were noted. Patient's knee was then thoroughly irrigated and then aspirated dry. 8 mL of 0.5% Marcaine with epinephrine with 40 mg of Depo-Medrol were then placed into the knee joint. Portals were then closed using 3-0 nylon. Compressive dressing was applied. Patient was taken to the recovery room, having tolerated the procedure very well. There were no intraoperative complications. Estimated blood loss was less than 5 mL. Total tourniquet time was 19 minutes. Patient will be discharged to home. She will followup in a week. She is to ambulate with crutches with weight-bearing as tolerated. She was instructed on ice and elevation. She was given a prescription of oxycodone 5 mg x 20 tablets for pain. Alexander Whittington MD By: bridget Job ID: [id number] Doc ID: [id number] CC: * Alexander Whittington MD - 08/19/2013 8:49 AM EST Brief OP Note Tyra Greco August 19, 2013 PRE-OP DIAGNOSIS: Left knee- Tear of medial cartilage or meniscus of knee, current [836.0] POST-OP DIAGNOSIS: Left knee- Tear of medial cartilage or meniscus of knee, current [836.0] with chondromalacia PROCEDURE(S): Procedure(s): Left Knee Arthroscopy Partial Medial Meniscectomy with Chondroplasty Patella and Medial Femoral condyle SURGEON(S): Surgeon(s) and Role: * Alexander Whittington MD - Primary ANESTHESIA: General ASA Class: 3 Blood Loss: 5 ml Tourniquet Time: 19 min Disposition: To recovery room in stable condition Alexander Whittington MD documented in this encounter Nursing Notes * Amina Guillen RN - 08/19/2013 10:42 AM EST Up to bathroom with stedy. Void x1 * Britney Vazquez RN - 08/19/2013 8:[address] Kelsey notified of allergies OK to give ancef Pharmacy notified anesth will brick picker on way [address] * Britney Vazquez RN - 08/19/2013 7:26 AM EST anesth notified pt did not take metoprolol this am * Marianne Moran - 08/18/2013 9:08 AM EST Brings h&p dos. * Miley Rodgers - 08/12/2013 2:18 PM EST Spoke with Sena patient did not need clearance she is only a scope documented in this encounter Plan of Treatment Not on file documented as of this encounter Procedures Procedure Name Priority Date/Time Associated Diagnosis Comments SCANNED PRE/POST PROCEDURES 08/21/2013 9:19 AM EST SCANNED ANESTHESIA FORMS 08/21/2013 9:19 AM EST SCANNED LABS 08/21/2013 9:19 AM EST SCANNED RHYTHM STRIPS 08/21/2013 9:19 AM EST GLUCOSE METER POC Routine 08/19/2013 9:0 7 AM EST KNEE ARTHROSCOPY MENISCECTOMY/REPAIR (ALSO COVERS ARTHROSCOPIC INCISION AND DRAINAGE/DEBRIDEMENT ) 08/19/2013 8:06 AM EST Tear of medial cartilage or meniscus of knee, current Special Needs FAX CPT: 17130 GLUCOSE METER POC Routine 08/19/2013 7:4 4 AM EST documented in this encounter Results * SCANNED PRE/POST PROCEDURES (08/21/2013 9:19 AM EST) Narrative Procedure Note Unknown, Unknown - 08/21/2013 9:19 AM EST us Unknown Unknown PROCEDURE/MINOR SURGICAL ORDERAB LES Final Result * SCANNED ANESTHESIA FORMS (08/21/2013 9:19 AM EST) Narrative Procedure Note Unknown, Unknown - 08/21/2013 9:19 AM EST us Unknown Unknown PROCEDURE/MINOR SURGICAL ORDERAB LES Final Result * SCANNED LABS (08/21/2013 9:19 AM EST) us Unknown Unknown HEMATOLOGY ORDERABLES Final Resu lt * SCANNED RHYTHM STRIPS (08/21/2013 9:19 AM EST) Anatomical Region Laterality Modality Other us Unknown Unknown IMG ECG ORDERABLES Final Result * (ABNORMAL) GLUCOSE METER POC (08/19/2013 9:07 AM EST) Glucose Meter POC 151(H) 70 - 100 mg/dL [facility] Blood specimen (specimen) 08/19/2013 9:07 AM EST 08/19/2013 9:07 AM EST us Alexnader Whittington MD POINT OF CARE TEST ORDER ISRRAEL Final Result Performing Organization Address City/State/[facility] Co de Phone Number [facility] [address] [place] [address] * (ABNORMAL) GLUCOSE METER POC (08/19/2013 7:44 AM EST) Glucose Meter POC 116(H) 70 - 100 mg/dL [facility] Blood specimen (specimen) 08/19/2013 7:44 AM EST 08/19/2013 7:44 AM EST us Alexander Whittington MD POINT OF CARE TEST ORDER ISRRAEL Final Result [facility] [address] [place] [address] documented in this encounter Visit Diagnoses Diagnosis Difficult airway for intubation Other specified conditions influencing health status documented in this encounter Administered Medications Inactive Administered Medications - up to 1 most recent administrations Medication Order MAR Action Action Date Dose Rate Site ceFAZolin (ANCEF) IVPB 1 g 1 g, Intravenous, ONCE, 1 dose, On Janae 08/19/13 at 0745, Administer over 30 Minutes, Pre-op (Antibiotic) IV Started 08/19/2013 8:06 AM EST 1 g 10 0 mL/hr fentaNYL (SUBLIMAZE) 50 mcg/mL injection 25 mcg 25 mcg, Intravenous, EVERY 5 MIN PRN, 4 doses, Starting on Janae 08/19/13 at 0855, Until Janae 08/19/13 at 0954, Severe Pain (Pain Score 8-10), For initial pain. Maximum dose not to exceed 100 mcg., PACU Given 08/19/2013 9:54 AM EST 25 mcg Hydromorphone (DILAUDID) injection 0.25 mg 0.25 mg, Intravenous, EVERY 10 MIN PRN, Starting on Janae 08/19/13 at 0855, Until Janae 08/19/13 at 1632, Severe Pain (Pain Score 8-10), Do not exceed 2 mg in one hour unless otherwise ordered by the Anesthesia Coordinator For pain unrelieved by fentanyl, PACU Given 08/19/2013 10:00 AM EST 0.25 mg lactated ringers infusion Intravenous, at 100 mL/hr, CONTINUOUS, Starting on Janae 08/19/13 at 0800, Until Janae 08/19/13 at 1632, Continue LR for Diabetic Ketoacidosis, Pre-op (Holding/SDS Meds) New Bag 08/19/2013 7:54 AM EST 100 m L/hr metoprolol (LOPRESSOR) tablet 25 mg 25 mg, Oral, ONCE, 1 dose, On Janae 08/19/13 at 0745, Pre-op (Holding/SDS Meds) Given 08/19/2013 7:55 AM EST 25 mg promethazine (PHENERGAN) injection 6.25-12.5 mg 6.25-12.5 mg, Intravenous, EVERY 4 HOURS PRN, Starting on Janae 08/19/13 at 0855, Until Janae 08/19/13 at 1632, Nausea, Begin with lowest dose unless otherwise directed. Not to exceed 25 mg in one hour unless otherwise ordered by Anesthesia Coordinator, PACU Given 08/19/2013 9:32 AM EST 12.5 mg documented in this encounter Active and Recently Administered Medications Times are shown in EST. Scheduled Medication Order 08/17/2013 08/18/2013 08/19/2013 acetaminophen (OFIRMEV) infusion 1,000 mg (COMPLETED) 1,000 mg, Intravenous, ONCE, 1 dose, On Janae 08/19/13 at 0845, Administer over 15 Minutes, Maximum adult dose of acetaminophen is 4000 mg from all sources in 24 hours. , Intra-op 0835 (New Bag - Prov ider: Seb Martínez CRNA)0845 (Canceled Entry - Provider: Stephanie Torres RN - Comment: given in or 0830) ceFAZolin (ANCEF) IVPB 1 g (COMPLETED) 1 g, Intravenous, ONCE, 1 dose, On Janae 08/19/13 at 0745, Administer over 30 Minutes, Pre-op (Antibiotic) 0806 (IV Started - P rovider: Angel Arauz RN - Comment: Per Seb Martínez UTILIZATION MANAGEMENT MANAGER)0807 (IV STOP - Provider: Angel Arauz RN) metoprolol (LOPRESSOR) tablet 25 mg (COMPLETED) 25 mg, Oral, ONCE, 1 dose, On Janae 08/19/13 at 0745, Pre-op (Holding/SDS Meds) 0755 (Given - Provid er: Britney Vazquez RN) Continuous Medication Order 08/17/2013 08/18/2013 08/19/2013 lactated ringers infusion (CANCELED) Intravenous, at 100 mL/hr, CONTINUOUS, Starting on Janae 08/19/13 at 0800, Until Janae 08/19/13 at 1632, Continue LR for Diabetic Ketoacidosis, Pre-op (Holding/SDS Meds) 0754 (New Bag - Prov ider: Britney Vazquez RN)1147 (Stopped - Provider: Amina Guillen RN) PRN Medication Order 08/17/2013 08/18/2013 08/19/2013 fentaNYL (SUBLIMAZE) 50 mcg/mL injection 25 mcg (COMPLETED) 25 mcg, Intravenous, EVERY 5 MIN PRN, 4 doses, Starting on Janae 2/ at 0855, Until Janae 214 at 0954, Severe Pain (Pain Score 8-10), For initial pain. Maximum dose not to exceed 100 mcg., PACU 0924 (Given - Provid er: Stephanie Torres RN)0932 (Given - Provider: Stephanie Torres RN)0948 (Given - Provider: Stephanie Torres RN)0954 (Given - Provider: Stephanie Torres RN) Hydromorphone (DILAUDID) injection 0.25 mg (CANCELED) 0.25 mg, Intravenous, EVERY 10 MIN PRN, Starting on Janae 2/ at 0855, Until Janae 08/19/13 at 1632, Severe Pain (Pain Score 8-10), Do not exceed 2 mg in one hour unless otherwise ordered by the Anesthesia Coordinator For pain unrelieved by fentanyl, PACU 1000 (Given - Provid er: Amina Guillen RN - Comment: vial in trash prior to scanning) MARCAINE WITH EPI 0.5% 8ML-DEPOMEDROL 40MG-OPTIME (CANCELED) ONCE PRN, 1 dose, Starting on Janae 2 at 0848, Until Janae 2 at 0848, Intra-op 0848 (Given - Provid er: Alexander Whittington MD) promethazine (PHENERGAN) injection 6.25-12.5 mg (CANCELED) 6.25-12.5 mg, Intravenous, EVERY 4 HOURS PRN, Starting on Janae 08/19/13 at 0855, Until Janae 14 at 1632, Nausea, Begin with lowest dose unless otherwise directed. Not to exceed 25 mg in one hour unless otherwise ordered by Anesthesia Coordinator, PACU 0932 (Given - Provid er: Stephanie Torres RN) documented in this encounter Orders Medications Ordered That Marco ht Not Have Been Administered Count Last Ordered Date First Ordered Date acetaminophen (OFIRMEV) infusion 1,000 mg 1 08/19/2013 MARCAINE WITH EPI 0.5% 8ML-D EPOMEDROL 40MG-OPTIME 1 08/19/2013 dextrose 5 % and 0.45 % NaCl infusion 1 06/2014 Nursing Count Last Ordered Date First Orde red Date FINGERSTICK BLOOD SUGAR 1 08/19/2013 NURSING COMMUNICATION 6 08/19/2013 RELEASE FROM ANESTHESIA CARE 1 08/19/2013 VERIFY INFORMED CONSENT 2 08/19/2013 Discharge Count Last Ordered Date First Orde red Date DISCHARGE PATIENT 1 08/19/2013 documented in this encounter Care Teams Chief Embalmer Relationship Specialty Start Date End Date Lupillo Garcia MD PCP - General Family Medicine 11/10/12 documented as of this encounter
--- OUTSIDE RECORDS SUMMARY | 2024-06-22 10:22 | XMS_ITS | Encounter Summary ---
Author Organization [place] [address] Care Team Providers Care Market Sales Manager Name Role Phone Lupillo Garcia MD Primary Care Provider [phone]- [phone] Encounter Details Date Type Department Care Team (Latest Contact Info) Description 07/21/2013 1:15 PM EST - 07/21/2013 11:59 PM EST Hospital Encounter GRT XRAY [address] [place] [id number] Arthritis of knee Discharge Disposition: Home or Self Care [...] or Self Care documented in this encounter Miscellaneous Notes * Miscellaneous - Unknown, Unknown - 07/21/2013 1:16 PM EST documented in this encounter Plan of Treatment Not on file documented as of this encounter Procedures Procedure Name Priority Date/Time Associated Diagnosis Comments XR KNEE LEFT AP LATERAL AND AXIAL Routine 07/21/2013 1:30 PM EST Arthritis of knee documented in this encounter Results * XR KNEE LEFT AP LATERAL AND AXIAL (07/21/2013 1:30 PM EST) Anatomical Region Laterality Modality Knee Radiographic Hailey ging 07/21/2013 1:15 PM EST Impressions 07/21/2013 3:04 PM EST IMPRESSION: Moderate tricompartmental degenerative change, left knee. Narrative 07/21/2013 3:04 PM EST 07/21/2013 Three-view left knee series: HISTORY: Recurrent medial pain. No comparison films. Moderate tricompartmental degenerative change. No focal fracture. Multiple soft tissue calcifications are noted along the lateral joint. If there is clinical concern of internal derangement, followup MR imaging advised. Procedure Note Jose Carranza, DO - 07/21/2013 07/21/2013 Three-view left knee series: HISTORY: Recurrent medial pain. No comparison films. Moderate tricompartmental degenerative change. No focal fracture. Multiplesoft tissue calcifications are noted along the lateral joint. If there is clinicalconcern of internal derangement, followup MR imaging advised. IMPRESSION: Moderate tricompartmental degenerative change, left knee. us Alexander Whittington MD IMG DIAGNOSTIC IMAGING O RDERABLES Final Result documented in this encounter Visit Diagnoses Diagnosis Arthritis of knee Unspecified arthropathy, lower leg documented in this encounter Care Teams Market Sales Manager Relationship Specialty Start Date End Date Lupillo Garcia MD PCP - General Family Medicine 11/10/12 documented as of this encounter
--- OUTSIDE RECORDS SUMMARY | 2024-06-22 10:22 | XMS_ITS | Encounter Summary ---
Author Organization [place] [address] Care Team Providers Care Lab Technician Name Role Phone Unavailable Primary Care Provider Unavailabl e Encounter Details Date Type Department Care Team (Late st Contact Info) Description 11/18/2004 6:22 PM EDT - 11/18/2004 8:00 PM EDT Hospital Encounter HST EPIC CON UNK GRT Manoj Doe MD Social History Tobacco Use Types Packs/Day Years [...]
--- OUTSIDE RECORDS SUMMARY | 2024-06-22 10:22 | XMS_ITS | Encounter Summary ---
Author Organization [place] [address] Care Team Providers Care Programming Equipment Operator Name Role Phone Unavailable Primary Care Provider Unavailabl e Encounter Details Date Type Department Care Team (Late st Contact Info) Description 10/15/2001 1:11 PM EDT - 10/15/2001 11:59 PM EDT Hospital Encounter [facility] RADIOLOGY [facility] Lupillo Garcia MD [address] [place] [address] Social History Tobacco Use Types Packs/Day Years [...]
--- OUTSIDE RECORDS SUMMARY | 2024-06-22 10:22 | XMS_ITS | Encounter Summary ---
Author Organization [place] [address] Care Team Providers Care Silk Screen Repairer Name Role Phone Lupillo Garcia MD Primary Care Provider [phone]- [phone] Encounter Details Date Type Department Care Team (Latest Contact Info) Description 08/25/2013 2:21 PM EST - 08/25/2013 11:59 PM [facility] Hospital Encounter GRT XRAY [address] [place] [address] Left knee pain Discharge Disposition: Home or Self Care Social [...] Notes * Miscellaneous - Unknown, Unknown - 08/25/2013 2:21 PM EST documented in this encounter Plan of Treatment Not on file documented as of this encounter Procedures Procedure Name Priority Date/Time Associated Diagnosis Comments XR KNEE LEFT AP LATERAL AND AXIAL Routine 08/25/2013 2:40 PM EST Left knee pain documented in this encounter Results * XR KNEE LEFT AP LATERAL AND AXIAL (08/25/2013 2:40 PM EST) Anatomical Region Laterality Modality Knee Radiographic Hailey ging 08/25/2013 2:21 PM EST Impressions 08/25/2013 3:17 PM EST IMPRESSION: Osteoarthritis primarily in the anterior and medial compartments. Soft tissue calcifications laterally most likely reflect prior soft tissue injury. No change from July 20. De Leon Narrative 08/25/2013 3:17 PM EST Left knee Two views, August [id number] Pain, The study consists of upright AP lateral and sunrise views of the knee. There is mild spurring on the lateral aspect of the patella and there is mild spurring on the medial aspect of the proximal tibia. The cartilage in the medial compartment is mildly narrowed. There are rounded extra-articular calcifications on the left. These are likely due to prior soft tissue injury. There is no fracture or destructive lesion and there is no joint effusion. Procedure Note Adriel De Leon MD - 08/25/2013 Left knee Two views, 143August [id number] Pain, The study consists of upright AP lateral and sunrise views of the knee.There is mild spurring on the lateral aspect of the patella and there is mild spurring on themedial aspect of the proximal tibia. The cartilage in the medial compartment is mildlynarrowed. There are rounded extra-articular calcifications on the left. These are likely due to priorsoft tissue injury. There is no fracture or destructive lesion and there is no jointeffusion. IMPRESSION: Osteoarthritis primarily in the anterior and medial compartments. Soft tissue calcifications laterally most likely reflect prior soft tissueinjury. No change from July 20. De Leon us Alexander Whittington MD IMG DIAGNOSTIC IMAGING O RDERABLES Final Result documented in this encounter Visit Diagnoses Diagnosis Left knee pain Pain in joint, lower leg documented in this encounter Care Teams Silk Screen Repairer Relationship Specialty Start Date End Date Lupillo Garcia MD PCP - General Family Medicine 11/10/12 documented as of this encounter
--- OUTSIDE RECORDS SUMMARY | 2024-06-22 10:22 | XMS_ITS | Encounter Summary ---
Author Organization [place] [address] Care Team Providers Care Pipe Coverer And Insulator Name Role Phone Lupillo Garcia MD Primary Care Provider [phone] Reason for Visit * Reason Comments Headache genralized started 3 weeks ago Otalgia right ear x 5 days Encounter Details Date Type Department Care Team (Late st Contact Info) Description 04/12/2016 3:28 PM EDT - 04/12/2016 4:16 PM EDT Emergency [facility] [address] [place] [address] Linwood Holley MD [address] [place] [id number] Nonintractable migraine, unspecified migraine type (Primary Dx); Earache, right Discharge Disposition: Home or Self Care Social [...] Sign Reading Time Taken Comments Blood Pressure 101/54 04/12/2016 4:06 PM EDT Pulse 57 04/12/2016 4:06 PM EDT Temperature 36.6 ??C (97.9 ??F) 04/12/2016 3:37 PM ED T Respiratory Rate 18 04/12/2016 4:06 PM EDT Oxygen Saturation 98% 04/12/2016 4:06 PM EDT Inhaled Oxygen Concentration - - Weight 77.1 kg (170 lb) 04/12/2016 3:37 PM EDT Height 152.4 cm (5') 04/12/2016 3:37 PM EDT Body Mass Index 33.2 04/12/2016 3:37 PM EDT documented in this encounter Discharge Instructions * Discharge Instructions* Linwood Holley MD - 04/12/2016 3:48 PM EDT He may take Sudafed [id number] for sinus congestion and earache. Follow-up family doctor for management of your migraine headaches. * Attachments The following attachments cannot be sent through Care Everywhere. * MIGRAINE HEADACHE (IRAQI) documented in this encounter Medications at Time [...] Code Departure Means Destination Home or Self Senior Living documented in this encounter ED Notes * Linwood Holley MD - 04/12/2016 3:25 PM EDT CHIEF COMPLAINT Chief Complaint Patient presents with ??? Headache genralized started 3 weeks ago ??? Otalgia right ear x 5 days HPI Tyra Romero is a 55 y.o. female. Patient complains of migraine headache. It is a generalized throbbing aching pain which she rates it a 9 out of 10. She has a history of chronic migraines and states that this is similar to her previous migraine headaches. Patient is taking usual home medications without improvement. She also complains of an earache. She is having a pressure-like discomfort inher right ear which is been ongoing for 5 days. She has not had any drainage from the ear. She has not had fever. He has not had trauma to the ear. Patient does have some mild sinus congestion. She has not taken anything for the ear pain. Review of systems negative otherwise REVIEW OF SYSTEMS See HPI for further details. Review of systems otherwise negative. PAST MEDICAL HISTORY Past 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 Diagnosis Date ??? Asthma ??? Depression ??? [...] Topics Concern ??? None Social History Narrative SURGICAL HISTORY Past Surgical History Procedure Laterality Date ??? Back surgery ??? Knee surgery right knee scope ??? Foot surgery right x2 left x1 ??? Hand surgery LCTR left trigger finger ??? Hiatal hernia repair x3 ??? Hysterectomy ??? Knee arthroscopy Left 08/19/2013 Left Knee Arthroscopy Partial Medial Meniscectomy Chondrplasty Patella Femoral condyle; Surgeon: Alexander Whittington MD; Location: [facility] OR; Service: Orthopedics CURRENT MEDICATIONS Current Facility-Administered Medications: ??? diphenhydrAMINE (BENADRYL) injection 25 mg, 25 mg, Intramuscular, Once, Linwood Holley MD ??? haloperidol lactate (HALDOL) injection 5 mg, 5 mg, Intramuscular, Once, Linwood Holley MD Current Outpatient Prescriptions: ??? albuterol (PROVENTIL HFA;VENTOLIN [...] ??? gabapentin (NEURONTIN) 300 mg capsule, Take 300 [...] as needed for Nausea.,Disp: , Rfl: ??? tiZANidine (ZANAFLEX) 4 mg tablet, Take 4 mg by mouth 3 times daily. Take 11/2 tabs as needed, Disp: , Rfl: ??? topiramate (TOPAMAX) 50 [...] 04/12/2016), Disp: 20 Tab, Rfl: 0 ??? sulfamethoxazole-trimethoprim (BACTRIM DS) 800-160 mg per [...] (See Comments) seizures PHYSICAL EXAM VITAL SIGNS: Vitals: 04/12/16 1537 BP: 122/66 BP Location: Left arm Patient Position: Semi Fowlers Pulse: 61 Resp: 18 Temp: 97.9 ??F (36.6 ??C) TempSrc: Oral SpO2: 98% Weight: 170 lb (77.1 kg) Height: 5' (1.524 m) Constitutional: Adult female in mild distress HENT:Atraumatic, TMs clear, oropharynx clear Eyes: PERRLA, EOMI, Conjunctiva normal, No discharge. Lymphatic: No lymphadenopathy noted. Cardiovascular: Normal heart rate, Normal rhythm Thorax & Lungs: No respiratory distress Abdomen: Soft, nondistended, nontender Skin: Warm and dry, no rash Neurologic: Alert & oriented x 3, Normal motor function, Normal sensory function, No focal deficits noted. Normal reflexes. Normal Cranial Nerves. Psychiatric: Affect normal LABS/RADIOLOGY No results found for this visit on 04/12/16. COURSE & MEDICAL DECISION MAKING Pertinent Labs & Imaging studies reviewed. (See chart for details) Medical Records Reviewed: Patient has had excellent relief of migraine with Haldol in the past. Medications haloperidol lactate (HALDOL) injection 5 mg (not administered) diphenhydrAMINE (BENADRYL) injection 25 mg (not administered) oxyCODONE-acetaminophen (PERCOCET) 5-325 mg per tablet 1 Tab (1 Tab Oral Given 04/12/16 3076) New Prescriptions No medications on file There are no discontinued medications. Patient's physical exam and diagnostic evaluation are consistent with headache. The patient has no meningismus or fevers concerning for meningitis. The headache was not sudden onset and is not the worst headache of life concerning for subarachnoid hemorrhage. Patient has no jaw claudication or other risk factors for temporal arteritis. No visual changes or eye pain concerning for glaucoma. No neck trauma or focal neurological deficits concerning for a carotid dissection. No history of hypercoagulability or other concerns for dural venous thrombosis FINAL IMPRESSION 1. Nonintractable migraine, unspecified migraine type 2. Earache, right Condition at discharge: Stable Linwood Holley MD 04/12/16 5041 documented in this encounter Plan of Treatment Not on file documented as of this encounter Visit Diagnoses Diagnosis Nonintractable migraine, unspecified migraine type- Primary Earache, right Otalgia, unspecified documented in this encounter Administered Medications Inactive Administered Medications - up to 1 most recent administrations Medication Order MAR Action Action Date Dose Rate Site diphenhydrAMINE (BENADRYL) injection 25 mg 25 mg, Intramuscular, ONCE, 1 dose, On Fri04/12/16 at 1545 Given 04/12/2016 4:00 PM EDT 25 mg Left Upper Outer Quadrant haloperidol lactate (HALDOL) injection 5 mg 5 mg, Intramuscular, ONCE, 1 dose, On Fri04/12/16 at 1545 Given 04/12/2016 3:55 PM EDT 5 mg Right Upper Outer Quadrant oxyCODONE-acetaminophen (PERCOCET) 5-325 mg per tablet 1 Tab 1 Tablet, Oral, ONCE, 1 dose, On Fri04/12/16 at 1545, Maximum adult dose of acetaminophen is 4000 mg from all sources in 24 hours. Given 04/12/2016 3:54 PM EDT 1 Tablet documented in this encounter Active and Recently Administered Medications Times are shown in EDT. Scheduled Medication Order 04/10/2016 04/11/2016 04/12/2016 diphenhydrAMINE (BENADRYL) injection 25 mg (COMPLETED) 25 mg, Intramuscular, ONCE, 1 dose, On Fri04/12/16 at 1545 1600 (Given - Provid er: Gita Dodd RN) haloperidol lactate (HALDOL) injection 5 mg (COMPLETED) 5 mg, Intramuscular, ONCE, 1 dose, On Fri04/12/16 at 1545 1555 (Given - Provid er: Gita Dodd RN) oxyCODONE-acetaminophen (PERCOCET) 5-325 mg per tablet 1 Tab (COMPLETED) 1 Tablet, Oral, ONCE, 1 dose, On Fri04/12/16 at 1545, Maximum adult dose of acetaminophen is 4000 mg from all sources in 24 hours. 1554 (Given - Provid er: Gita Dodd RN) documented in this encounter Care Teams Pipe Coverer And Insulator Relationship Specialty Start Date End Date Lupillo Garcia MD PCP - General Family Medicine 11/10/12 documented as of this encounter
--- OUTSIDE RECORDS SUMMARY | 2024-06-22 10:22 | XMS_ITS | Encounter Summary ---
Author Organization [place] [address] Care Team Providers Care Online Content Developer Name Role Phone Lupillo Garcia MD Primary Care Provider [phone]- [phone] Reason for Visit * Reason Comments Headache pt states migraine H A for the last 5 days with intermittent vomiting and visual disturbances cpta- tylenol this am Encounter Details Date Type Department Care Team (Late st Contact Info) Description 11/07/2015 4:40 PM EDT - 11/07/2015 6:30 PM EDT Emergency [facility] [address] [id number] Bogdan Eugene MD Nonintractable migraine, unspecified migraine type (Primary Dx) Discharge Disposition: Home or Self [...] Sign Reading Time Taken Comments Blood Pressure 112/71 11/07/2015 4:49 PM EDT Pulse 79 11/07/2015 4:49 PM EDT Temperature 36.2 ??C (97.2 ??F) 11/07/2015 4:49 PM ED T Respiratory Rate 19 11/07/2015 4:49 PM EDT Oxygen Saturation 100% 11/07/2015 4:49 PM EDT Inhaled Oxygen Concentration - - Weight 77.1 kg (170 lb) 11/07/2015 4:49 PM EDT Height 152.4 cm (5') 11/07/2015 4:49 PM EDT Body Mass Index 33.2 11/07/2015 4:49 PM EDT documented in this encounter Discharge Instructions * Attachments The following attachments cannot be sent through Care Everywhere. * MIGRAINE HEADACHE (BELARUSIAN) documented in this encounter Medications at Time [...] Code Departure Means Destination Home or Self [place] documented in this encounter ED Notes * Riya Noe - 11/07/2015 6:21 PM EDT Pt verbalizes understanding of dc instructions. Gait steady. Resp even and unlabored. Skin w/d/i. Alert and oriented x3. Pt in nad * Bogdan Eugene MD - 11/07/2015 5:24 PM EDT CHIEF COMPLAINT Chief Complaint Patient presents with ??? Headache pt states migraine SHER for the last 5 days with intermittent vomiting and visual disturbances cpta- tylenol this am HPI Tyra Romero is a 55 y.o. female who presents With the chief complaint headache. Patient presents with a 5 day history of what she is describing as her typical migraine headache. It is constant moderate goes from her forehead over the top of her head to her occiput. No thunderclap headache beganas her typical migraines do. She states she gets blurred vision whenever she gets a migraine and ishaving the same symptoms. She also is nonbloody nonbilious emesis. Denies stiff neck. She took Tylenol this morning. REVIEW OF SYSTEMS See HPI for further details. Review of systems otherwise negative. PAST MEDICAL HISTORY Past 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 Diagnosis Date ??? Asthma ??? Unspecified sleep apnea no machine ??? Heart murmur ??? Heartburn ??? Headache(784.0) ??? Syncope and collapse ??? Diabetes mellitus (HCC) ??? Encounter for blood transfusion ??? Depression FAMILY HISTORY No family history on file. SOCIAL HISTORY History Social History ??? Marital Status: Spouse Name: N/A ??? Number of Children: N/A ??? Years of Education: N/A Social History Main Topics ??? Smoking status: Never Smoker ??? Smokeless tobacco: Never Used ??? Alcohol Use: No ??? Drug Use: No ??? Sexual Activity: Not on file Other Topics Concern ??? None Social History [...] Femoral condyle; Surgeon: Alexander Whittington MD; Location: [facility] OR; Service: Orthopedics CURRENT MEDICATIONS Current Outpatient Rx Name Route Sig Dispense Refill ??? albuterol (PROVENTIL HFA;VENTOLIN HFA) 90 mcg/actuation inhaler Inhalation Inhale 2 Puffs into the lungs every 6 hours as needed for Wheezing. ??? buPROPion (WELLBUTRIN SR) 150 mg SR tablet Oral Take 150 mg by mouth 2 times daily. ??? estrogens, conjugated, (PREMARIN) 0.3 mg tablet Oral Take 0.3 mg by mouth daily. ??? fenofibrate (LOFIBRA) 160 mg tablet Oral Take 160 mg by mouth daily. ??? gabapentin (NEURONTIN) 300 mg capsule Oral Take 300 mg by mouth 3 times daily. ??? HYDROcodone-acetaminophen (LORTAB) 10-500 mg Oral Take 1 Tab by mouth every 6 hours as needed. ??? insulin glargine (LANTUS) 100 unit/mL injection Subcutaneous Subcutaneous (Inject under the skin) 20 Units nightly. 15 units am ??? INSULIN LISPRO (HUMALOG SUBQ) Subcutaneous Subcutaneous (Inject under the skin). Sliding scale ??? metoprolol (LOPRESSOR) 25 mg tablet Oral Take 25 mg by mouth 2 times daily. ??? omeprazole (PRILOSEC) 20 mg Oral Take 20 mg by mouth daily. ??? oxyCODONE (ROXICODONE) 5 mg tablet Oral Take 1 Tab by mouth every 8 hours as needed for Pain for 20 doses. 20 Tab 0 ??? promethazine (PHENERGAN) 25 mg tablet Oral Take 25 mg by mouth every 6 hours as needed for Nausea. ??? sulfamethoxazole-trimethoprim (BACTRIM DS) 800-160 mg per tablet Oral Take 1 Tab by mouth daily. ??? SUMAtriptan (IMITREX) 100 mg tablet Oral Take 100 mg by mouth once as needed for Migraine. ??? tiZANidine (ZANAFLEX) 4 mg tablet Oral Take 4 mg by mouth 3 times daily. Take 11/2 tabs as needed ??? topiramate (TOPAMAX) 50 mg tablet Oral Take 50 mg by mouth 2 times daily. ALLERGIES Allergies Allergen Reactions ??? Advil [Ibuprofen] [...] Comments) seizures PHYSICAL EXAM VITAL SIGNS: BP 112/71 mmHg Pulse 79 Temp(Src) 97.2 ??F (36.2 ??C) (Oral) Resp 19 Ht 5' (1.524 m) Wt 170 lb (77.111 kg) BMI 33.20 kg/m2 SpO2 100% Constitutional: Well developed, Well nourished, No acute distress, Non-toxic appearance. HENT: normocephalic atraumatic and mucous membranes moist Eyes: PERRLA, EOMI, Conjunctiva normal, No discharge. Neck: Normal range of motion, No tenderness, Supple, No stridor. Lymphatic: No lymphadenopathy noted. Cardiovascular: Normal heart rate, Normal rhythm, No murmurs, No rubs, No gallops. Thorax & Lungs: Normal breath sounds, No respiratory distress, No wheezing, No chest tenderness. Skin: Warm, Dry, No erythema, No rash. Extremities: Intact distal pulses, No edema, No tenderness, No cyanosis, No clubbing. Neurologic: Alert & oriented x 3, Normal motor function, Normal sensory function, No focal deficits noted. Psychiatric: Affect normal, Judgment normal, Mood normal. RADIOLOGY/PROCEDURES COURSE & MEDICAL DECISION MAKING Pertinent Labs & Imaging studies reviewed. (See chart for details) Patient evaluated given IV fluids acetaminophen Haldol and Benadryl good relief of her symptoms lowsuspicion meningitis subarachnoid hemorrhage based on her history and prior headache pattern feel she can be discharged home If a controlled substance was prescribed to this patient it was deemed the patient had acute pain that required the prescribing of a controlled substance. TREY was reviewed and the risk and benefits of prescribing a controlled substance was discussed with the patient. FINAL IMPRESSION 1. Nonintractable migraine, unspecified migraine type Condition at discharge stable This chart was completed using voice recognition technology and may contain unintended errors Bogdan Eugene MD 11/07/15 1810 documented in this encounter Plan of Treatment Not on file documented as of this encounter Visit Diagnoses Diagnosis Nonintractable migraine, unspecified migraine type- Primary documented in this encounter Administered Medications Inactive Administered Medications - up to 1 most recent administrations Medication Order MAR Action Action Date Dose Rate Site acetaminophen (OFIRMEV) infusion 1,000 mg 1,000 mg, Intravenous, ONCE, 1 dose, On Fri11/07/15 at 1715, Administer over 15 Minutes, Maximum adult dose of acetaminophen is 4000 mg from all sources in 24 hours. IV Started 11/07/2015 5:31 PM EDT 1,000 mg 400 mL/hr diphenhydrAMINE (BENADRYL) injection 25 mg 25 mg, Intravenous, ONCE, 1 dose, On Fri11/07/15 at 1715 Given 11/07/2015 5:31 PM EDT 25 mg haloperidol lactate (HALDOL) injection 2.5 mg 2.5 mg, Intravenous, ONCE, 1 dose, On Fri11/07/15 at 1715 Given 11/07/2015 5:31 PM EDT 2.5 mg sodium chloride 0.9 % 1,000 mL IV bolus Intravenous, ONCE, 1 dose, On Fri11/07/15 at 1715, at 983.6 mL/hr IV Started 11/07/2015 5:31 PM EDT 983.6 mL/hr documented in this encounter Active and Recently Administered Medications Times are shown in EDT. Scheduled Medication Order 11/05/2015 11/06/2015 11/07/2015 acetaminophen (OFIRMEV) infusion 1,000 mg (COMPLETED) 1,000 mg, Intravenous, ONCE, 1 dose, On Fri11/07/15 at 1715, Administer over 15 Minutes, Maximum adult dose of acetaminophen is 4000 mg from all sources in 24 hours. 1731 (IV Started - P rovider: Riya Noe)1746 (Stopped - Provider: Riya Noe) diphenhydrAMINE (BENADRYL) injection 25 mg (COMPLETED) 25 mg, Intravenous, ONCE, 1 dose, On 11/07/15 at 1715 1731 (Given - Provid er: Riya Noe) haloperidol lactate (HALDOL) injection 2.5 mg (COMPLETED) 2.5 mg, Intravenous, ONCE, 1 dose, On Fri11/07/15 at 1715 1731 (Given - Provid er: Riya Noe) sodium chloride 0.9 % 1,000 mL IV bolus (COMPLETED) Intravenous, ONCE, 1 dose, On Fri11/07/15 at 171, at 983.6 mL/hr 1731 (IV Started - P rovider: Riya Noe)1832 (Stopped - Provider: Riya Noe) documented in this encounter Care Teams Online Content Developer Relationship Specialty Start Date End Date Lupillo Garcia MD PCP - General Family Medicine 11/10/12 documented as of this encounter
--- OUTSIDE RECORDS SUMMARY | 2024-06-22 10:22 | XMS_ITS | Encounter Summary ---
Author Organization [place] [address] Care Team Providers Care Bagging Salvager Name Role Phone Unavailable Primary Care Provider Unavailabl e Encounter Details Date Type Department Care Team (Late st Contact Info) Description 10/28/2006 3:23 PM EDT - 10/28/2006 5:29 PM EDT Hospital Encounter HST EPIC CON UNK GRT Linwood Hirsch MD Social History Tobacco Use Types Packs/Day [...]
--- OUTSIDE RECORDS SUMMARY | 2024-06-22 10:22 | XMS_ITS | Encounter Summary ---
Author Organization [place] Address [facility] [place] [address] Care Team Providers Care Supervisor Gluing Name Role Phone Lupillo Garcia MD Primary Care Provider +1- [phone] Encounter Details Date Type Department Care Team (Latest Contact Info) Description 08/12/2013 12:42 PM EST - 08/12/2013 11:59 PM EST Hospital Encounter EDG PRE-ADMIT TESTING [facility] Dr. Landry [facility]17 2, Edg Pat Nurse Discharge Disposition: Home or Self Care Social [...] Sign Reading Time Taken Comments Blood Pressure 133/58 08/12/2013 12:46 PM EST Pulse 74 08/12/2013 12:46 PM EST Temperature 36.5 ??C (97.7 ??F) 08/12/2013 12:[address] Respiratory Rate 14 08/12/2013 12:46 PM EST Oxygen Saturation 97% 08/12/2013 12:46 PM EST Inhaled Oxygen Concentration - - Weight 89.4 kg (197 lb) 08/12/2013 12:46 PM EST Height 153.7 cm (5' 0.5 ) 08/12/2013 12:46 PM ES T Body Mass Index 37.84 08/12/2013 12:46 PM EST documented in this encounter Medications at Time [...] or Self Care documented in this encounter Nursing Notes * Vivi Mcguire RN - 08/13/2013 8:58 AM EST Faxed BMP to Dr. Whittington office and called to office, spoke to Sena. * Miley Rodgers - 08/12/2013 2:11 PM EST Called Sena for copy of clearance. documented in this encounter Plan of Treatment Not on file documented as of this encounter Procedures Procedure Name Priority Date/Time Associated Diagnosis Comments EK EKG 12 LEAD Routine 08/13/2013 1:14 PM EST DIFFERENTIAL Routine 08/12/2013 2:09 PM EST CBC WITH DIFF Routine 08/12/2013 2:09 PM EST BASIC METABOLIC PANEL Routine 08/12/2013 2:09 PM EST documented in this encounter Results * EK EKG 12 LEAD (08/13/2013 1:14 PM EST) Anatomical Region Laterality Modality Electrocardiogra phy 08/12/2013 1:22 PM EST Leanna Oneill NP IMG ECG ORDERABLES Fi nal Result * DIFFERENTIAL (08/12/2013 2:09 PM EST) Neut Percent 56.3 % [facility] Lymph Percent 34.3 % [facility] [place] Percent 6.3 % [facility] Eos Percent 2.3 % [facility] Baso Percent 0.8 % [facility] Neut# 3.9 1.8 - 7.7 x10(3)/mcL [facility] Lymph# 2.4 0.6 - 4.8 x10(3)/mcL [facility] [place]# 0.4 0.0 - 1.3 x10(3)/mcL [facility] Eos# 0.2 0.0 - 0.5 x10(3)/mcL [facility] Baso# 0.1 0.0 - 0.2 x10(3)/mcL [facility] Blood specimen (specimen) 08/12/2013 2:09 PM EST 08/12/2013 2:10 PM EST us Leanna Oneill NP HEMATOLOGY ORDERABLES Final Result [facility] [address] [place] [address] * (ABNORMAL) BASIC METABOLIC PANEL (08/12/2013 2:09 PM EST) Sodium 139 136 - 145 mmol/L [facility] Potassium 4.0 3.5 - 5.0 mmol/L [facility] Chloride 101 98 - 107 mmol/L [facility] Total CO2 24 22 - 29 mmol/L [facility] Anion Gap 14 7 - 16 mmol/L [facility] Calcium 9.3 8.6 - 10.0 mg/dL [facility] Glucose Lvl 97 74 - 109 mg/dL [facility] BUN 23(H) 6 - 20 mg/dL [facility] Creatinine 1.63(H) 0.51 - 0.95 mg/dL [facility] GFR Afr Am 40 [facility] Comment: GFR is estimated using creatinine, age, gender, and race. ??GFR has been validated for patients between 18 and 70 years of age. GFR has not been validated for women, patients with serious comorbid conditions, or persons with extremes of body size, muscle mass, or nutritional status. ??For additional information: ??www.kidney.org. Chronic kidney disease stage ? GFR (ml/min/1.73 square meters) ? Stage 3 ? 30 - 59 ? Stage 4 ? 15 - 29 ? Stage 5 ? 14 or less GFR Non Afr Am 33 [facility] Blood specimen (specimen) UPPER LIMB STRUCTURE / Unknown 08/12/2013 2:09 PM EST 08/12/2013 2:10 PM EST us Leanna Oneill NP CHEMISTRY ORDERABLES Edited Result - Final Performing Organization Address [facility] de Phone Number [facility] [address] [place] [address] * CBC WITH AUTO DIFF (08/12/2013 2:09 PM EST) WBC 6.9 4.0 - 11.0 x10(3)/mcL [facility] RBC 3.83 3.80 - 5.10 x10(6)/mcL [facility] Hgb 12.8 12.0 - 15.6 gm/dL [facility] Hct 36.5 35.7 - 45.9 % [facility] MCV 95.3 82.5 - 99.8 fL [facility] MCH 33.3 27.0 - 34.3 pg [facility] MCHC 35.0 32.1 - 35.3 gm/dL [facility] RDW 12.9 11.5 - 15.0 % [facility] Platelet 227 144 - 423 x10(3)/mcL [facility] MPV 8.4 6.8 - 10.8 fL [facility] Blood specimen (specimen) UPPER LIMB STRUCTURE / Unknown 08/12/2013 2:09 PM EST 08/12/2013 2:10 PM EST us Leanna Oneill NP HEMATOLOGY ORDERABLES Final Result Performing Organization Address [facility] de Phone Number [facility] [address] [place] [address] documented in this encounter Visit Diagnoses Not on filedocumented in this encounter Historical Medications * This list may reflect changes made after this encounter. INSULIN LISPRO (HUMALOG SUBQ) Subcutaneous (Inject under the skin). Sliding scale Insulin glargine (LANTUS) 100 unit/mL (3 mL) SubQ Insulin Pen Subcutaneous (Inject under the skin) 20 Units nightly. 15 units am SUMAtriptan (IMITREX) 100 mg tablet Take 100 mg by mouth once as needed for Migraine. albuterol (PROVENTIL HFA;VENTOLIN HFA) 90 mcg/actuation inhaler Inhale 2 Puffs into the lungs every 6 hours as needed for Wheezing. HYDROcodone-acet aminophen (LORTAB) 10-500 mg Take 1 Tab by mouth every 6 hours as needed. metoprolol (LOPRESSOR) 25 mg tablet Take 25 mg by mouth 2 times daily. topiramate (TOPAMAX) 100 mg Oral Tablet Take by mouth 2 times daily. buPROPion (WELLBUTRIN SR) 150 mg SR tablet Take 150 mg by mouth 2 times daily. gabapentin (NEURONTIN) 100 mg Oral Capsule Take 100 mg by mouth 3 times daily. promethazine (PHENERGAN) 25 mg tablet Take 25 mg by mouth every 6 hours as needed for Nausea. omeprazole (PRILOSEC) 20 mg Take 20 mg by mouth daily. fenofibrate (LOFIBRA) 160 mg tablet Take 160 mg by mouth daily. estrogens, conjugated, (PREMARIN) 0.3 mg tablet Take 0.3 mg by mouth daily. tiZANidine (ZANAFLEX) 4 mg tablet Take 4 mg by mouth 3 times daily. Take 11/2 tabs as needed sulfamethoxazole -trimethoprim (BACTRIM DS) 800-160 mg per tablet Take 1 Tab by mouth daily. 7 added in this encounter Care Teams Supervisor Gluing Relationship Specialty Start Date End Date Lupillo Garcia MD PCP - General Family Medicine 11/10/12 documented as of this encounter
--- OUTSIDE RECORDS SUMMARY | 2024-06-22 10:22 | XMS_ITS | Encounter Summary ---
Author Organization [place] [address] Care Team Providers Care Cephalometric Technician Name Role Phone Unavailable Primary Care Provider Unavailabl e Encounter Details Date Type Department Care Team (Late st Contact Info) Description 04/19/2005 8:13 PM EDT - 04/19/2005 9:33 PM EDT Hospital Encounter HST EPIC CON UNK GRT Tavon Pepe, DO [address] [place] [address] Social History Tobacco Use Types [...]
--- OUTSIDE RECORDS SUMMARY | 2024-06-22 10:22 | XMS_ITS | Encounter Summary ---
Author Organization [place] [address] Care Team Providers Care Back Maker Name Role Phone Unavailable Primary Care Provider Unavailabl e Encounter Details Date Type Department Care Team (Late st Contact Info) Description 02/08/1991 8:42 PM EDT - 02/08/1991 11:59 PM EDT Hospital Encounter HST EPIC CON UNK [facility] Social History Tobacco Use Types Packs/Day [...]
--- OUTSIDE RECORDS SUMMARY | 2024-06-22 10:22 | XMS_ITS | Encounter Summary ---
Author Organization [place] [address] Care Team Providers Care Vice President Of Procurement Name Role Phone Lupillo Garcia MD Primary Care Provider +1- [phone] Encounter Details Date Type Department Care Team (Latest Contact Info) Description 11/03/2015 11:00 AM EDT - 11/03/2015 11:59 PM EDT Hospital Encounter [facility] [address] [place] [address] Type 2 diabetes mellitus with complication (HCC) (Primary Dx) Discharge Disposition: Home [...] r Schedule OP VENIPUNCTURE CHARGE Lab Timed Type 2 Diabetes Mellitus With Complication (Hcc) One Time for 1 Occurrences starting 11/03/2015 until 11/03/2015 documented as of this encounter Procedures Procedure Name Priority Date/Time Associated Diagnosis Comments CBC Callback 11/03/2015 11:11 AM EDT Type 2 diabetes mellitus with complication (HCC) BASIC METABOLIC PANEL Callback 11/03/2015 11:11 AM EDT Type 2 diabetes mellitus with complication (HCC) documented in this encounter Results * (ABNORMAL) CBC (11/03/2015 11:11 AM EDT) [facility] WBC 7.6 4.8 - 10.8 x10(3)/mcL [facility] RBC 4.27 4.20 - 5.40 x10(6)/mcL [facility] Hgb 13.8 12.0 - 16.0 gm/dL [facility] Hct 38.9 37.0 - 47.0 % [facility] MCV 91.2 80.0 - 99.0 fL [facility] MCH 32.2(H) 27.0 - 31.0 pg [facility] MCHC 35.3 32.0 - 36.0 gm/dL [facility] RDW 12.9 11.5 - 15.5 % [facility] Platelet 234 130 - 400 x10(3)/mcL [facility] MPV 8.6 7.4 - 10.4 fL [facility] Blood specimen (specimen) UPPER LIMB STRUCTURE / Unknown 11/03/2015 11:11 AM EDT 11/03/2015 11:11 AM EDT Narrative [facility] - 11/03/2015 12:27 PM EDT Please fax to [phone] us Lupillo Garcia MD HEMATOLOGY ORDERABLES Final Result [facility] [address] [place] [address] * (ABNORMAL) BASIC METABOLIC PANEL (11/03/2015 11:11 AM EDT) Sodium 138 136 - 145 mmol/L [facility] Potassium 3.7 3.5 - 5.1 mmol/L [facility] Chloride 103 98 - 107 mmol/L [facility] Total CO2 26 21 - 32 mmol/L [facility] Anion Gap 9 7 - 16 mmol/L [facility] Calcium 9.1 8.5 - 10.1 mg/dL [facility] Glucose Lvl 146(H) 74 - 106 mg/dL [facility] BUN 44(H) 7 - 18 mg/dL [facility] Creatinine 2.0(H) 0.6 - 1.3 mg/dL [facility] GFR Afr Am 31 [facility] GFR Non Afr Am 26 [facility] Blood specimen (specimen) UPPER LIMB STRUCTURE / Unknown 11/03/2015 11:11 AM EDT 11/03/2015 11:11 AM EDT Narrative [facility] - 11/03/2015 12:25 PM EDT Please fax to [phone] us Lupillo Garcia MD CHEMISTRY ORDERABLES Final Result [facility] [address] [place] [address] documented in this encounter Visit Diagnoses Diagnosis Type 2 diabetes mellitus with complication (HCC)- Primary documented in this encounter Care Teams Vice President Of Procurement Relationship Specialty Start Date End Date Lupillo Garcia MD PCP - General Family Medicine 11/10/12 documented as of this encounter
--- OUTSIDE RECORDS SUMMARY | 2024-06-22 10:22 | XMS_ITS | Encounter Summary ---
Author Organization [place] [address] Care Team Providers Care Supervisor Machining Name Role Phone Lupillo Garcia MD Primary Care Provider +1- [phone] Reason for Visit * Auth/Cert/Inpt - Closed Specialty Diagnoses / Procedures Referred By Contdorie t Referred To Contact Diagnoses Tear of medial cartilage or meniscus of knee, current Left knee- Tear of medial cartilage or meniscus of knee, current [836.0] Procedures LEFT KNEE ARTHROSCOPY PARTIAL MEDIAL MENISCECTOMY Referral ID Status Reason Start Date Expiration Date Visits Re quested Visits Authorized [id number] Closed 1 1 Encounter Details Date Type Department Care Team (Late st Contact Info) Description 08/19/2013 8:00 AM EST - 08/19/2013 9:00 AM EST Surgery EDG PERIOP [facility] [place] [address] Alexander Whittington MD [address] [place] [address] KNEE ARTHROSCOPY MENISCECTOMY/REPAIR (ALSO COVERS ARTHROSCOPIC INCISION AND DRAINAGE/DEBRIDEMENT) Surgery Details Date/Time Status Location OR Service Patient Class Case Class Case Type Trauma Case? 08/19/2013 8:00 AM Posted EDG MAIN OR EDG Room 09 XI Orthopedics Same Day Surgery N/A Panel 1 Procedure LRB Anes Op Region Wound Class Comments KNEE ARTHROSCOPY MENISCECTOMY/REPAIR (ALSO COVERS ARTHROSCOPIC INCISION AND DRAINAGE/DEBRIDEMENT) Left General Clean Left Knee Arthroscopy Partial Medial Meniscectomy Chondrplasty Patella Femoral condyle Surgeon Surgeon Role Service Panel Alexander Whittington MD Primary Orthopedics 1 Special Needs FAX CPT: 15783 documented in this encounter Social History Tobacco Use Types Packs/Day Years [...] Elevation/ice prn; Crutches/walker Weight Bearing As Tolerated [facility] Discharge Instructions - Following Surgery Best wishes are extended to you on behalf of [facility] as you are discharged. Because we are [...] Code Departure Means Destination Home or Self Long-Term documented in this encounter H&P Notes * [...] given a b-mandi pre op Pre op WLP=839 reported per nursing. documented in this encounter Procedure Notes * Unknown, Unknown - 08/21/2013 9:19 AM ESTAssociated Order(s): SCANNED PRE/POST PROCEDURES * Unknown, Unknown - 08/21/2013 9:19 AM ESTAssociated Order(s): SCANNED ANESTHESIA FORMS * Alexander Whittington MD - 08/19/2013 8:[address] [facility] NAME: TYRA ROMERO [facility]#: [id number] LOCATION/ROOM: [facility] FACILITY: ED DICTATOR: Alexander Whittington OPERATIVE REPORT DATE OF [...] M.D. ANESTHESIA: General. INDICATIONS FOR PROCEDURE: Ms. Romero is a 53-year-old female with a long [...] Alexander Whittington MD By: bridget Job ID: [id number] Doc ID: [id number] CC: * Alexander Whittington MD - 08/19/2013 8:49 AM EST Brief OP Note Tyra Rmoero August 19, 2013 PRE-OP DIAGNOSIS: Left knee- [...] to give ancef Pharmacy notified anesth will cigar packer and picker on way Ashlee * Britney Vazquez [...] of knee, current Special Needs FAX CPT: 17596 GLUCOSE METER POC Routine 08/19/2013 7:4 4 [...] GLUCOSE METER POC (08/19/2013 9:07 AM EST) [facility] Glucose Meter POC 151(H) 70 - 100 mg/dL [facility] Blood specimen (specimen) 08/19/2013 9:07 AM EST 08/19/2013 9:07 AM EST us Alexander Whittington MD POINT OF CARE TEST ORDER ISRRAEL Final Result [facility] [address] [place] [address] * (ABNORMAL) GLUCOSE METER POC (08/19/2013 7:44 AM EST) Glucose Meter POC 116(H) 70 - 100 mg/dL [facility] Blood specimen (specimen) 08/19/2013 7:44 AM EST 08/19/2013 7:44 AM EST us Alexander Whittington MD POINT OF CARE TEST ORDER ISRRAEL Final Result Performing Organization Address [facility] Co de Phone Number [facility] [address] [place] [address] documented in this encounter Visit Diagnoses Diagnosis Difficult airway for intubation Other specified conditions influencing health status Tear of medial cartilage or meniscus of knee, current documented in this encounter Administered Medications Inactive Administered Medications - up to 1 most recent administrations Medication Order MAR Action Action Date Dose Rate Site acetaminophen (OFIRMEV) infusion 1,000 mg 1,000 mg, Intravenous, ONCE, 1 dose, On Janae 08/19/13 at 0845, Administer over 15 Minutes, Maximum adult dose of acetaminophen is 4000 mg from all sources in 24 hours. , Intra-op New Bag 08/19/2013 8:35 AM EST 1,000 mg ceFAZolin (ANCEF) IVPB 1 g 1 g, Intravenous, ONCE, 1 dose, On Janae 08/19/13 at 0745, Administer over 30 Minutes, Pre-op (Antibiotic) IV Started 08/19/2013 8:06 AM EST 1 g 100 mL/hr fentaNYL (SUBLIMAZE) 50 mcg/mL injection 25 [...] New Bag 08/19/2013 7:54 AM EST 100 mL/hr MARCAINE WITH EPI 0.5% 8ML-DEPOMEDROL 40MG-OPTIME ONCE PRN, 1 dose, Starting on Janae 08/19/13 at 0848, Until Janae 08/19/13 at 0848, Intra-op Given 08/19/2013 8:48 AM EST 10 mL metoprolol (LOPRESSOR) tablet 25 mg 25 mg, [...] Torres RN - Comment: given in or 829) ceFAZolin (ANCEF) IVPB 1 g (COMPLETED) 1 g, Intravenous, ONCE, 1 dose, On Janae 08/19/13 at 0745, Administer over 30 Minutes, Pre-op (Antibiotic) 0806 (IV Started - P rovider: Angel Arauz RN - Comment: Huy Martínez REPAIR SERVICE DISPATCHER)0807 (IV STOP - Provider: Angel Arauz RN) [...] at 0855, Until Janae 14 at 1632, Severe Pain (Pain Score 8-10), Do not exceed 2 mg in one hour unless otherwise ordered by the Anesthesia Coordinator For pain unrelieved by fentanyl, PACU 1000 (Given - Provid er: Amina Guillen RN - Comment: vial in trash prior to scanning) MARCAINE WITH EPI 0.5% 8ML-DEPOMEDROL 40MG-OPTIME (CANCELED) ONCE PRN, 1 dose, Starting on Janae 08/19/13 at 0848, Until Janae 08/19/13 at 0848, Intra-op 0848 (Given - Provid [...] Count Last Ordered Date First Ordered Date dextrose 5 % and 0.45 % NaCl infusion 1 06/2014 Nursing Count Last Ordered Date First Orde red Date FINGERSTICK BLOOD SUGAR 1 08/19/2013 NURSING COMMUNICATION 6 08/19/2013 RELEASE FROM ANESTHESIA CARE 1 08/19/2013 VERIFY INFORMED CONSENT 2 08/19/2013 Discharge Count Last Ordered Date First Orde red Date DISCHARGE PATIENT 1 08/19/2013 documented in this encounter Care Teams Supervisor Machining Relationship Specialty Start Date End Date Lupillo Garcia MD PCP - General Family Medicine 11/10/12 documented as of this encounter
--- OUTSIDE RECORDS SUMMARY | 2024-06-22 10:22 | XMS_ITS | Encounter Summary ---
Author Organization [facility] [place] [address] Care Team Providers [facility] [employer] Name Role Phone Lupillo Garcia MD Primary Care Provider [phone] Reason for Visit * Reason Comments Back Pain Pt reports that she has had back pain and headache for 1 week. cpta none Encounter Details Date Type Department Care Team (Late st Contact Info) Description 01/21/2014 12:18 PM EDT - 01/21/2014 1:04 PM EDT Emergency [facility] [address] [place] [address] Sanchez Duggan MD [address] [place] [id number] Chronic Back Pain Discharge Disposition: Home or Self Care Social [...] Sign Reading Time Taken Comments Blood Pressure 139/71 01/21/2014 1:01 PM EDT Pulse 64 01/21/2014 1:01 PM EDT Temperature 36.4 ??C (97.5 ??F) 01/21/2014 12:26 PM E DT Respiratory Rate 16 01/21/2014 1:01 PM EDT Oxygen Saturation 98% 01/21/2014 1:01 PM EDT Inhaled Oxygen Concentration - - Weight 89.4 kg (197 lb) 01/21/2014 12:26 PM EDT Height 152.4 cm (5') 01/21/2014 12:26 PM EDT Body Mass Index 38.47 01/21/2014 12:26 PM EDT documented in this encounter Discharge Instructions * Discharge Instructions* Sanchez Duggan MD - 01/21/2014 12:38 PM EDT Migraine Headache A migraine headache is very bad, throbbing pain on one or both sides of your head. Talk to your doctor about what things may bring on (trigger) your migraine headaches. HOME CARE ?? Only take medicines as told by your doctor. ?? Lie down in a dark, quiet room when you have a migraine. ?? Keep a journal to find out if certain things bring on migraine headaches. For example, write down: ?? What you eat and drink. ?? How much sleep you get. ?? Any change to your diet or medicines. ?? Lessen how much alcohol you drink. ?? Quit smoking if you smoke. ?? Get enough sleep. ?? Lessen any stress in your life. ?? Keep lights dim if bright lights bother you or make your migraines worse. GET HELP RIGHT AWAY IF: ?? Your migraine becomes really bad. ?? You have a fever. ?? You have a stiff neck. ?? You have trouble seeing. ?? Your muscles are weak, or you lose muscle control. ?? You lose your balance or have trouble walking. ?? You feel like you will pass out (faint), or you pass out. ?? You have really bad symptoms that are different than your first symptoms. MAKE SURE YOU: ?? Understand these instructions. ?? Will watch your condition. ?? Will get help right away if you are not doing well or get worse. Document Released: 04/01/2009 Document Revised: 09/14/2012 Document Reviewed: 06/12/2012 ExitCare?? Patient Information ??2013 [email or web address]. * Attachments The following attachments cannot be sent through Care Everywhere. * BACK PAIN, ADULT, [id number] (KINYARWANDA) documented in this encounter Medications at Time [...] documented in this encounter ED Notes * Gracy Heard RN - 01/21/2014 1:00 PM EDT Injection site clear no reaction to medication noted. Medication teaching and discharge instructions given to pt who verbalized understanding and pt left ambulatory in stable condition with driving. * Sanchez Duggan MD - 01/21/2014 12:19 PM EDT CHIEF COMPLAINT No chief complaint on file. HPI Tyra Romero is a 53 y.o. female who presents with complaint of migraine headache for several days. She describes the headache as a throbbing pain the pain is 10/10 across the forehead and into the back of the head. She describes photophobia and some blurred vision, but denies any double vision or loss of vision. She denies any numbness or weakness in her extremities. She denies any dizziness,lightheadedness or vertigo. She has not had any difficulty speaking or swallowing. She reports thatshe also has pain in her upper back. This is typical pain for her and she has had prior thoracic spine surgery and is on Lortab for chronic back pain. REVIEW OF SYSTEMS See HPI for further details. Review of 10 systems otherwise negative. PAST MEDICAL HISTORY Past [...] History Narrative ??? No narrative on file SURGICAL HISTORY Past Surgical History Procedure Laterality Date ??? Back surgery ??? Knee surgery right knee scope ??? Foot surgery right x2 left x1 ??? Hand surgery LCTR left trigger finger ??? Hiatal hernia repair x3 ??? Hysterectomy ??? Knee arthroscopy Left 08/19/2013 Left Knee Arthroscopy Partial Medial Meniscectomy Chondrplasty Patella Femoral condyle; Surgeon: Alexander Whittington MD; Location: [facility] MAIN OR; Service: Orthopedics CURRENT MEDICATIONS Current Outpatient Rx Name Route Sig Dispense Refill ??? oxyCODONE (ROXICODONE) 5 mg tablet Oral Take 1 Tab by mouth every 8 hours as needed for Pain for 20 doses. 20 Tab 0 ??? tiZANidine (ZANAFLEX) 4 mg tablet Oral Take 4 mg by mouth 3 times daily. Take 11/2 tabs as needed ??? estrogens, conjugated, (PREMARIN) 0.3 mg tablet Oral Take 0.3 mg by mouth daily. ??? fenofibrate (LOFIBRA) 160 mg tablet Oral Take 160 mg by mouth daily. ??? omeprazole (PRILOSEC) 20 mg Oral Take 20 mg by mouth daily. ??? sulfamethoxazole-trimethoprim (BACTRIM DS) 800-160 mg per tablet Oral Take 1 Tab by mouth daily. ??? promethazine (PHENERGAN) 25 mg tablet Oral Take 25 mg by mouth every 6 hours as needed for Nausea. ??? gabapentin (NEURONTIN) 300 mg capsule Oral Take 300 mg by mouth 3 times daily. ??? buPROPion (WELLBUTRIN SR) 150 mg SR tablet Oral Take 150 mg by mouth 2 times daily. ??? topiramate (TOPAMAX) 50 mg tablet Oral Take 50 mg by mouth 2 times daily. ??? metoprolol (LOPRESSOR) 25 mg tablet Oral Take 25 mg by mouth 2 times daily. ??? HYDROcodone-acetaminophen (LORTAB) 10-500 mg Oral Take 1 Tab by mouth every 6 hours as needed. ??? albuterol (PROVENTIL HFA;VENTOLIN HFA) 90 mcg/actuation inhaler Inhalation Inhale 2 Puffs into the lungs every 6 hours as needed for Wheezing. ??? SUMAtriptan (IMITREX) 100 mg tablet Oral Take 100 mg by mouth once as needed for Migraine. ??? insulin glargine (LANTUS) 100 unit/mL injection Subcutaneous Subcutaneous (Inject under the skin) 20 Units nightly. 15 units am ??? INSULIN LISPRO (HUMALOG SUBQ) Subcutaneous Subcutaneous (Inject under the skin). Sliding scale ALLERGIES Allergies Allergen Reactions ??? Advil (Ibuprofen) Other [...] Zofran Odt (Ondansetron) Other (See Comments) seizures PHYSICAL EXAM VITAL SIGNS: There were no vitals taken for this visit. Constitutional: Well developed, Well nourished, No acute [...] Warm, Dry, No erythema, No rash. Back: Mild tenderness to palpation of the upper thoracic area where there is a vertical scar from prior surgery, No CVA tenderness. Extremities: Intact distal pulses, No edema, No tenderness, No cyanosis, No clubbing. Musculoskeletal: Good range of motion in all major joints. No tenderness to palpation or major deformities noted. Neurologic: Alert & oriented x 3, Normal motor function, Normal sensory function, No focal deficits noted. Psychiatric: Affect normal, Judgment normal, Mood normal. RADIOLOGY/PROCEDURES COURSE & MEDICAL DECISION MAKING Pertinent Labs & Imaging studies reviewed. (See chart for details) Patient presents with a migraine headache which she states is typical for her with no neurologic deficits. She was given an injection of Morphine and Phenergan with some relief. She will be discharged home to follow with her MD and pain specialist. FINAL IMPRESSION 1. Migraine headache 2. Chronic back pain Electronically signed by: Sanchez Duggan MD, 01/21/2014 12:19 PM This chart was completed using voice recognition technology and may contain unintended errors Sanchez Duggan MD 01/21/14 1252 documented in this encounter Plan of Treatment Not on file documented as of this encounter Visit Diagnoses Diagnosis Migraine, unspecified, without mention of intractable migraine without mention of status migrainosus Chronic back pain Backache, unspecified Backache, unspecified documented in this encounter Administered Medications Inactive Administered Medications - up to 1 most recent administrations Medication Order MAR Action Action Date Dose Rate Site morphine injection 10 mg 10 mg, Intramuscular, ONCE, 1 dose, On Fri01/21/14 at 1245 Given 01/21/2014 12:37 PM EDT 10 mg Right Upper Outer Quadrant promethazine (PHENERGAN) injection 25 mg 25 mg, Intramuscular, ONCE, 1 dose, On Fri01/21/14 at 1245, VESICANT Given 01/21/2014 12:37 PM EDT 25 mg Right Upper Outer Quadrant documented in this encounter Active and Recently Administered Medications Times are shown in EDT. Scheduled Medication Order 01/19/2014 01/20/2014 01/21/2014 morphine injection 10 mg (COMPLETED) 10 mg, Intramuscular, ONCE, 1 dose, On Fri01/21/14 at 1245 1237 (Given - Provid er: Gracy Heard RN - Comment: pt tolerated well) promethazine (PHENERGAN) injection 25 mg (COMPLETED) 25 mg, Intramuscular, ONCE, 1 dose, On Fri01/21/14 at 1245, VESICANT 1237 (Given - Provid er: Gracy Heard RN - Comment: pt tolerated well) documented in this encounter Orders Nursing Count Last Ordered Date First Orde red Date ED HAND STRAIGHTENER REQUEST TREY REPORT 1 01/21/2014 documented in this encounter Care Teams [employer] Relationship Specialty Start Date End Date Lupillo Garcia MD PCP - General Family Medicine 11/10/12 documented as of this encounter
== END 2024-06-17 15:10 | disposition home or self-care (01) ==
PROVIDERS: Emergency Provider Emergency Medicine; PCP Family Medicine
DX: U07.1 COVID-19 (principal); R11.2 Nausea with vomiting, unspecified; R10.9 Unspecified abdominal pain; R55 Syncope and collapse; R33.9 Retention of urine, unspecified; R00.2 Palpitations
CPT/HCPCS: 71046; 87636; 99283; Q0162

== ENCOUNTER 2024-07-02 10:00 | Outpatient (RCR) | payer MEDICAID, SELFPAY | END 2024-07-02 23:59 | disposition home or self-care (01) | LOC: PT 10:00 | PROVIDERS: Visit Provider Family Medicine | DX: M54.2 Cervicalgia (principal) | CPT/HCPCS: 97014; 97035; 97110; 97140; 97163; 97164; 97530; G0283 ==

== ENCOUNTER 2024-07-04 22:36 | Emergency (ER) | payer MEDICAID, SELFPAY ==
[2024-07-04 22:37] VITALS: BP 96/59; PULSE 92; RESP 20; TEMP 36.6; O2SAT 99; BMI 23.8
[2024-07-04 23:01] VITALS: BP 96/59; PULSE 80; O2SAT 99
--- NOTE | 2024-07-04 23:21 | ED_ITS ---
Discharge Plan Disposition Patient Disposition: Xfer Short-Term Hosp Prescriptions Prescriptions: No Action bupropion HCl 150 mg tablet sustained-release 12 hr 150 mg PO BID tizanidine 4 mg tablet 4 mg PO BID amlodipine 5 mg tablet 5 mg PO DAILY aspirin 81 mg tablet,chewable 81 mg PO DAILY gabapentin 100 mg capsule 100 mg PO TID lisinopril 2.5 mg tablet 2.5 mg PO DAILY spironolactone 50 mg tablet 50 mg PO DAILY insulin glargine [Lantus Solostar U-100 Insulin] 100 unit/mL (3 mL) insulin pen 15 unit SQ DAILY Rx Instructions: units per MD daily diclofenac sodium [Voltaren Arthritis Pain] 1 % gel 4 g topical QID Qty: 50 0RF Rx Instructions: apply to single knee, ankle, foot; for foot includes sole/toes/top of foot promethazine 25 mg tablet 25 mg PO HS cefdinir 300 mg capsule 300 mg PO BID 7 Days Qty: 14 0RF fluconazole 150 mg tablet 150 mg PO Q3D Qty: 2 0RF Rx Instructions: may repeat second dose 72 hrs after first dose if symptoms persist promethazine 25 mg tablet 25 mg PO Q6H PRN (Reason: nausea and vomiting) 7 Days Qty: 10 0RF atorvastatin 40 mg tablet 40 mg PO HS methocarbamol 500 mg tablet 500 mg PO TID famotidine 20 mg tablet 20 mg PO BID meclizine 25 mg tablet 25 mg PO TID insulin lispro [Humalog KwikPen Insulin] 100 unit/mL insulin pen 20 unit SQ ACHS hydrocodone-acetaminophen 5-325 mg tablet 1 tab PO TIDP PRN (Reason: Pain) allopurinol 100 mg tablet 100 mg PO DAILY polyethylene glycol 3350 17 gram/dose powder 17 g PO DAILY topiramate 100 mg tablet 200 mg PO HS cholecalciferol (vitamin D3) 10 mcg (400 unit) tablet 400 mcg PO DAILY Premarin 0.3 mg tablet 0.3 mg PO DAILY levofloxacin 500 mg tablet 500 mg PO DAILY Qty: 5 0RF Referrals Follow up/Referrals: Lupillo Garcia MD [Primary Care Provider] - See instructions Clinical Impressions Clinical Impression: Acute renal failure, Acidosis, lactic, Oliguria Stand Alone Forms Stand Alone Forms: Transfer Record - ED Print Language Print Language: Gibralt[place] Discharge [facility] General Adult HPI General Chief complaint: Nausea/Vomiting/Diarrhea Stated complaint: vomiting, diarrhea,weak Time Seen by Provider: 07/04/24 22:59 Mode of Arrival: Wheelchair Source of Information: Patient Limitations: No Limitations Description of Symptoms (Recalled from ER Triage Doc. by RN): Pt c/o nvd/chills started yesterday, + covid exposure. pt also reports fall this am due to weakness History of Present Illness HPI narrative: 64-year-old female with a history of asthma and insulin-dependent diabetes presents to the ER for complaints of nausea, vomiting, diarrhea, chills that started yesterday. She also reports mild chest pain when she coughs. She has not been able to tolerate oral intake for the last 24 hours. She states each time she eats or drinks she vomits. Patient reports nonbloody, nonbilious emesis, nonbloody, nonmelanotic stool. Patient was positive for COVID approximately 2 weeks ago. Reportedly patient also had a fall this morning secondary to weakness, she has no localizing numbness, tingling, weakness, or other associated symptoms. She does not take any blood thinners. She has no headache or neck pain, she does not report any concern of injuries from the falls. Patient reports diffuse abdominal discomfort, no localizing pain. No dysuria or hematuria. Denies known fevers. Has not taken any medications for symptoms. Related Data Home Medications ?Medication ?Instructions ?Recorded ?Confirmed amlodipine 5 mg tablet 5 mg PO DAILY 03/31/22 10/15/23 aspirin 81 mg chewable tablet 81 mg PO DAILY 03/31/22 10/15/23 bupropion HCl 150 mg tablet,12 hr 150 mg PO BID Depression 03/31/22 10/15/23 sustained-release gabapentin 100 mg capsule 100 mg PO TID neuropathy 03/31/22 10/15/23 insulin glargine 100 unit/mL (3 15 unit SQ DAILY Diabetes 03/31/22 10/15/23 mL) subcutaneous pen (Lantus Solostar U-100 Insulin) lisinopril 2.5 mg tablet 2.5 mg PO DAILY High blood pressure 03/31/22 10/15/23 spironolactone 50 mg tablet 50 mg PO DAILY High blood pressure 03/31/22 10/15/23 tizanidine 4 mg tablet 4 mg PO BID neuropathy 03/31/22 10/15/23 atorvastatin 40 mg tablet 40 mg PO HS 05/06/23 10/15/23 famotidine 20 mg tablet 20 mg PO BID 05/06/23 10/15/23 insulin lispro 100 unit/mL 20 unit SQ ACHS 05/06/23 10/15/23 subcutaneous pen (Humalog KwikPen (U-100) Insulin) meclizine 25 mg tablet 25 mg PO TID 05/06/23 10/15/23 methocarbamol 500 mg tablet 500 mg PO TID 05/06/23 10/15/23 allopurinol 100 mg tablet 100 mg PO DAILY 05/07/23 10/15/23 cholecalciferol (vitamin D3) 10 400 mcg PO DAILY 05/07/23 10/15/23 mcg (400 unit) tablet conjugated estrogens 0.3 mg tablet 0.3 mg PO DAILY 05/07/23 10/15/23 (Premarin) hydrocodone 5 mg-acetaminophen 325 1 tab PO TIDP PRN Pain 05/07/23 10/15/23 mg tablet polyethylene glycol 3350 17 17 g PO DAILY 05/07/23 10/15/23 gram/dose oral powder topiramate 100 mg tablet 200 mg PO HS migraine 05/07/23 11/19/23 promethazine 25 mg tablet 25 mg PO HS migraine 11/19/23 11/19/23 Previous Rx's ?Medication ?Instructions ?Recorded levofloxacin 500 mg tablet 500 mg PO DAILY #5 tabs 05/09/23 diclofenac sodium 1 % topical gel 4 g topical QID #50 grams 08/29/23 (Voltaren Arthritis Pain) cefdinir 300 mg capsule 300 mg PO BID 7 days #14 caps 01/31/24 fluconazole 150 mg tablet 150 mg PO Q3D 2 doses #2 tabs 01/31/24 promethazine 25 mg tablet 25 mg PO Q6H PRN nausea and 06/17/24 vomiting 7 days #10 tabs Allergies Allergy/AdvReac Type Severity Reaction Status Date / Time acetaminophen (From Tylenol) Allergy Verified 09/11/23 11:01 amoxicillin Allergy Verified 09/11/23 11:01 butorphanol (From Stadol) Allergy Verified 09/11/23 11:01 clavulanic acid Allergy Verified 09/11/23 11:01 fexofenadine Allergy Verified 09/11/23 11:01 ibuprofen Allergy Verified 09/11/23 11:01 ketorolac Allergy Verified 09/11/23 11:01 metoclopramide Allergy Verified 09/11/23 11:01 nizatidine Allergy Verified 09/11/23 11:01 ondansetron (From Zofran) Allergy Verified 09/11/23 11:01 prochlorperazine Allergy Verified 09/11/23 11:01 propoxyphene Allergy Verified 09/11/23 11:01 [facility] Disclaimer: The information contained in this section may have been updated after the patient was seen, as this information can be updated by other users. 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) History of tubal ligation History of tonsillectomy History of section History of cholecystectomy Family History , HUMAN SERVICES CARE SPECIALIST) Heart failure Cancer Hypertension Social History , 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 SERVICES CARE SPECIALIST) Smoking Status: Unknown if ever smoked alcohol intake: never current occupational status: other Travel in the last 8 weeks: None Have you lived/traveled outside [place] in past 30 days?: No Contact w/someone who lives/traveled outside US past 30 days?: No Exposure to someone with infectious disease in past 14 days?: No Do you have a fever (greater than 100.4 F or 38 C)?: No Have you tested positive for COVID-19: No Exposed to someone with COVID-19 in past 14 days?: No Do you have a sore throat?: Yes Do you have a cough?: Yes Do you have any weakness?: Yes Do you have any diarrhea?: Yes Are you experiencing any unusual bleeding?: No Do you have any muscle aches/pain?: Yes Do you have any abdominal pain?: No Are you experiencing loss of taste or smell?: No Other 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 Have you received the Flu Vaccine for this season: No Have you received the Pneumonia Vaccine: No ROS Obtained: Yes Systems reviewed as appropriate & no additional complaints except as documented Per HPI Physical Exam General General appearance: alert and in no apparent distress Head Head exam: atraumatic and normocephalic Eye Eye exam: Present PERRL and EOMI ENT ENT exam: Present mucous membranes dry Neck Neck exam: Present normal inspection and full ROM; Absent tenderness Chest Chest inspection: Present symmetric chest wall rise Respiratory Respiratory exam: Present normal lung sounds bilaterally; Absent respiratory distress, wheezes or stridor Cardiovascular Cardiovascular exam: Present regular rate and normal rhythm Abdominal Exam Abdominal exam: Present soft and tenderness (Mild diffuse); Absent distention, guarding, rebound or rigidity Extremities Exam Extremities exam: Present full ROM; Absent edema Neurological Exam Neurological exam: Present alert, oriented X3 and CN II-XII intact; Absent motor sensory deficit Psychiatric Psychiatric exam: Present normal affect and normal mood Skin Skin exam: Present warm and dry Medical Decision Making Medical Records Medical records reviewed: Yes I reviewed the patient's medical records. Screening: Per USPSTF and CDC recommendations, given the prevalence of disease in our region, it is our hospital?s policy to screen for HIV and viral Hepatitis for all patients aged 18 and over and those with ongoing risk factors. MR Comment: Patient was positive for COVID on 06/17/24 and at that time was prescribed promethazine. Mirza Inquiry Pt receiving controlled substance: No Vital Signs: 07/04/24 22:37 07/04/24 23:01 Temperature 97.9 F Temperature Source Oral Pulse Rate 80 Pulse Rate [Apical] 92 H Respiratory Rate 20 Blood Pressure 96/59 L Blood Pressure [Right Arm] 96/59 L Blood Pressure Mean 52 Blood Pressure Mean [Right Arm] 71 02 Sat by Pulse Oximetry 99 99 Oxygen Delivery Method Room Air Nasal Cannula Oxygen Flow Rate (LPM) 2 Lab Data Lab Results 07/05/24 00:10: WBC 5.9, RBC 4.02 L, Hgb 12.8, Hct 38.9, MCV 96.8, MCH 31.8 H, MCHC 32.9, RDW 13.4, Plt Count 162, MPV 10.8 H, Neut % (Auto) 78.0, Lymph % (Auto) 15.0, [place] % (Auto) 6.2, Eos % (Auto) 0.0 L, Baso % (Auto) 0.5, Neut # (Auto) 4.6, Lymph # (Auto) 0.9, [place] # (Auto) 0.4, Eos # (Auto) 0.0, Baso # (Auto) 0.0, Sodium 134 L, Potassium 3.7, Chloride 103, Carbon Dioxide 10 L, A [place] 24.7 H, BUN 55 H, Creatinine 5.10 H, Estimated Creat Clear 10, E stimated GFR 9 L*, Est GFR ( Amer) 10 L*, Glucose 239 H, Calcium 9.1, Total Bilirubin 0.8, AST 56 H, ALT 29, Alkaline Phosphatase 94, Troponin I < 0.01, Total Protein 7.5, Albumin 4.4, Globulin 3.1, Albumin/Globulin Ratio 1.4 07/05/24 00:25: VBG pH 7.24 L, VBG pCO2 32.5 L, VBG pO2 59.9 H, VBG HCO3 13.6 L, VBG Total CO2 14.6 L, VBG O2 Saturation 87.8 H, VBG Base Excess -13.8 L, VBG Lactic Acid 2.9 H 07/05/24 00:10 07/05/24 00:10 Orders (Tests/Meds): ED MEDICATIONS Discontinued Medications Generic Name Dose Route Start Last Admin Trade Name Freq PRN Reason Stop Dose Admin Lactated Ringer's 2,000 mls @ 999 mls/hr 07/04/24 23:06 07/04/24 23:25 Lactated Ringer's 1000 Ml Bag IV 07/05/24 01:06 999 mls/hr .Q2H1M ONE Administration Promethazine HCl 12.5 mg 07/04/24 23:06 07/04/24 23:24 Promethazine Hcl 25mg/Ml 1ml Vial IV 07/04/24 23:07 12.5 mg ONCE ONE Administration Sodium Chloride 25 ml 07/04/24 23:06 07/04/24 23:25 Sodium Chloride 0.9% 25ml Bag IV 07/04/24 23:07 25 ml ONCE ONE Administration ORDERS Category Date Time Status CT abdomen pelvis wo con Stat Cat Scan 07/05/24 00:[address] cervical spine wo con Stat Cat Scan 07/04/24 23:[address] chest wo con Stat Cat Scan 07/05/24 00:[address] head/brain wo con Stat Cat Scan 07/04/24 23:22 Completed CBC w/Auto Diff [Complete Blood Count Auto Diff] Stat Lab 07/04/24 23:06 Completed CMP [Comprehensive Metabolic Panel] Stat Lab 07/04/24 23:06 Completed HIV Combo Stat Lab 07/04/24 22:50 Ordered Hep C Ab with Reflex to RNA Stat Lab 07/04/24 22:50 Ordered Lactic Acid Stat Lab 07/04/24 23:19 Ordered Trop I [Troponin I] Stat Lab 07/04/24 23:06 Completed Troponin I Q3H Lab 07/05/24 02:15 Ordered Troponin I Q3H Lab 07/05/24 05:15 Ordered Urinalysis and Microscopic Stat Lab 07/04/24 23:06 Ordered VBG [Venous Blood Gas] Stat RT 07/05/24 00:25 Completed ECG Request Stat Y 07/04/24 23:06 Ordered Medical Decision Narrative: In summary, this 64-year-old female with comorbidities described in the HPI presents to the emergency department today with nausea, vomiting, diarrhea, diffuse abdominal pain, she also reports mild chest pain when she coughs. On initial evaluation patient is borderline hypotensive, heart rate 87 during my exam, saturating well on room air, abdomen is diffusely mildly tender with no rebound or guarding, no focal tenderness, no findings of peritonitis, mucous membranes dry, GCS 15, no neurodeficits, no findings of traumatic injury from her earlier fall remainder of exam is reassuring. Differential diagnosis includes but is not limited to viral syndrome, colitis, diverticulitis, ACS, pneumonia, intracranial bleed, skull fracture, cervical spine fracture, electrolyte abnormality, dehydration. Based on these concerns, I ordered serum labs, cardiac workup, CT chest, abdomen, pelvis. ECG personally interpreted demonstrates normal sinus rhythm, rate 78, normal axis, normal OH and QTc, patient has isolated T wave inversion in aVL without contiguous or reciprocal changes, no STEMI. Patient received IV fluids, promethazine for treatment. Labs personally reviewed demonstrate no leukocytosis or anemia, platelets normal, VBG with lactic acidosis pH 7.24, no hypercarbia, bicarb low at 13.6, CMP notable for acute renal failure, patient's BUN is 55 creatinine 5.1 up from a baseline of 1.1-1.5. GFR 9. Patient has scant urine output. Initial troponin undetectably low less than 0.01 significantly reassuring given patient's duration of symptoms, I do not believe serial troponins are indicated at this time. AST mildly elevated at 56, remainder of transaminases normal. CT chest personally interpreted demonstrates possible atypical infection in the lower lobes but no obvious pneumonia, CT abdomen pelvis does not demonstrate any bowel obstruction or other acute abnormality, CT head personally interpreted demonstrates no acute intracranial injury, CT cervical spine demonstrates no traumatic fracture or malalignment on my personal interpretation, see radiology read for final interpretation. Radiology read of the chest does not appreciate parenchymal consolidation. Patient was placed on 2 L nasal cannula because she would have spontaneous desaturations despite arriving saturating in the mid to upper 90s on room air. She recovers on her own but was placed on NC for support. She is not showing any signs of respiratory distress. She has not yet produced urine despite fluid resuscitation. Due to patient's acute renal failure she requires transfer to higher level of care. 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 Unfortunately we reached out to [facility] and they declined the patient due to bed capacity. I spoke with hospitalist GONZALEZ Lyons at [place] and she agrees the patient requires transfer to higher level of care, she accepted the patient for a [facility] bed under Dr. Le, however patient was placed on a wait list due to capacity. [address] Belle at transfer center. They are currently on divert so patient was listed for a bed. [address] Cast with . He recommends step down or higher level of care bed so I was connected with Dr. Hi and Dr. Ba. We spoke and they agree with transfer and patient possibly needing acute renal intervention due to anuria. She was accepted to the [facility] ICU under Dr. Ba. Patient use the restroom and had a few mL of urine out however still has severe oliguria despite fluid resuscitation. Patient will be transferred via ALS ambulance. She is agreeable to this plan. The other facilities who could wait list the patient have been notified that she was accepted elsewhere. Patient transferred in serious but currently stable condition. Critical Care Critical Care Time Critical Care Time: No
--- NOTE | 2024-07-04 23:22 | CT_ITS ---
PROCEDURE INFORMATION: Exam: CT Cervical Spine Without Contrast Exam date and time: 07/05/2024 12:49 AM Age: 64 years old Clinical indication: Injury or trauma; Fall; Blunt trauma TECHNIQUE: Imaging protocol: Computed tomography of the cervical spine without contrast. Radiation optimization: All CT scans at this facility use at least one of these dose optimization techniques: automated exposure control; mA and/or kV adjustment per patient size (includes targeted exams where dose is matched to clinical indication); or iterative reconstruction. COMPARISON: 1. CT CERVICAL SPINE WO CON 07/05/2024 12:[address] CERVICAL SPINE WO CON 02/09/2024 1:[address] CERVICAL SPINE WO CON 05/06/2023 2:59 PM FINDINGS: Bones: Partially visualized thoracic spine surgical hardware extending from T2 inferiorly. There are multiple disc bulges most pronounced at C3-C4, C5-C6, and C6-C7. No acute fracture or subluxation. Mild mineralization. No aggressive osseous lesion. Lungs: Lung apices are normal. Soft tissues: Unremarkable. IMPRESSION: Degenerative disease without acute osseous injury identified.
--- NOTE | 2024-07-04 23:22 | CT_ITS ---
PROCEDURE INFORMATION: Exam: CT Head Without Contrast Exam date and time: 07/05/2024 12:39 AM Age: 64 years old Clinical indication: Injury or trauma; Fall; Blunt trauma (contusions or hematomas) TECHNIQUE: Imaging protocol: Computed tomography of the head without contrast. Radiation optimization: All CT scans at this facility use at least one of these dose optimization techniques: automated exposure control; mA and/or kV adjustment per patient size (includes targeted exams where dose is matched to clinical indication); or iterative reconstruction. COMPARISON: 1. CT HEAD/BRAIN WO CON 07/05/2024 12:[address] HEAD/BRAIN WO CON 02/09/2024 1:[address] HEAD/BRAIN WO CON 05/06/2023 2:57 PM FINDINGS: Brain: Normal. No hemorrhage. Unremarkable white matter. No mass effect. Cerebral ventricles: No ventriculomegaly. Paranasal sinuses: Visualized sinuses are unremarkable. No fluid levels. Mastoid air cells: Visualized mastoid air cells are well aerated. Teeth: There is dental amalgam which causes streak artifact and mildly limits evaluation of the oral cavity. Bones: Unremarkable. No acute fracture. Soft tissues: Unremarkable. IMPRESSION: No acute intracranial abnormality.
[2024-07-04] MEDS: PROMETHAZINE HCL 25MG/ML 1ML VIAL 12.5 MG IV (23:24)
[2024-07-04] MEDS: LACTATED RINGERS 1000ML 2,000 ML 999 ML IV (23:25)
[2024-07-04] MEDS: SODIUM CHLORIDE 0.9% 25ML BAG 25 ML IV (23:25)
--- NOTE | 2024-07-05 00:09 | ECG_ITS ---
APPROVED REPORT Exam: Resting ECG HR:78 bpm ECG Measurements Heart Rate 78 AXES TX 140 P 24 QRSd 95 QRS 2 QT 321 T 67 QTc 354 Conclusion SINUS RHYTHM MINIMAL VOLTAGE CRITERIA FOR LVH, CONSIDER NORMAL VARIANT [MEETS CRITERIA IN ONE OF: R(aVL), S(V1), R(V5), R(V5/V6)+S(V1)] NONSPECIFIC T-WAVE ABNORMALITY Isolated T wave inversion in lead aVL without reciprocal or contiguous ST changes, no STEMI Electronically signed by : FIORELLA BRITO, 07/05/2024 02:53:16
[2024-07-05 00:16] LABS: Basophils % 0.5 % (0.1-2.0); Hematocrit 38.9 % (37.0-47.0); Hemoglobin 12.8 g/dL (12.2-16.2); Lymphocytes # 0.9 K/mm3 (0.7-4.5); Mean Corpuscular HGB Conc 32.9 g/dL (31.8-35.4); Mean Corpuscular Hemoglobin 31.8 pg (27.0-31.2); Mean Corpuscular Volume 96.8 fl (81-99); Mean Platelet Volume 10.8 fl (7.4-10.4); Monocytes # 0.4 K/mm3 (0.1-1.0); Monocytes % 6.2 % (1.7-9.3); Neutrophils # 4.6 K/mm3 (1.8-7.8); Platelet Count 162 K/mm3 (142-424); Red Blood Count 4.02 M/mm3 (4.20-5.40); Red Cell Distribution Width 13.4 % (11.5-17.5); White Blood Count 5.9 K/mm3 (4.8-10.8)
[2024-07-05 00:26] LABS: Alanine Aminotransferase 29 U/L (12-78); Albumin Level 4.4 g/dl (3.5-5.0); Albumin/Globulin Ratio 1.4 (1.1-1.8); Alkaline Phosphatase 94 U/L (38-126); Anion Gap 24.7 mEq/L (5-15); Aspartate Amino Transferase 56 U/L (14-36); Bilirubin,Total 0.8 mg/dl (0.2-1.3); Blood Urea Nitrogen 55 mg/dl (7-17); Calcium 9.1 mg/dl (8.4-10.2); Chloride 103 mmol/L (98-107); Creatinine Clearance Estimated 10 mL/min (50-200); Estimated Glomerular Filt Rate 9 ml/min (>60); GFR (African American) 10 ML/MIN (>60); Globulin 3.1 g/dL (1.3-3.2); Glucose 239 mg/dl (74-100); Potassium 3.7 mmoL/L (3.5-5.1); Sodium 134 mmol/L (136-145); Total Protein,Serum 7.5 g/dl (6.3-8.2)
[2024-07-05 00:27] LABS: VBG Base Excess -13.8 mmol/L (-2.4-2.3); VBG HCO3 13.6 mmol/L (23-30); VBG Oxygen Saturation 87.8 % (50-70); VBG PCO2 32.5 mmol/L (35-51); VBG PH 7.24 mmol/L (7.31-7.41); VBG PO2 59.9 mmol/L (28-40); VBG Total CO2 14.6 mmol/L (23-27)
[2024-07-05 00:28] LABS: Lactate Venous 2.9 mmol/L (0.4-2.0)
[2024-07-05 00:28] LABS: Carbon Dioxide 10 mmol/L (22.0-30.0)
[2024-07-05 00:39] LABS: Troponin I < 0.01 ng/ml (0.00-0.034)
--- NOTE | 2024-07-05 00:40 | CT_ITS ---
PROCEDURE INFORMATION: Exam: CT Chest Without Contrast; Diagnostic Exam date and time: 07/05/2024 12:52 AM Age: 64 years old Clinical indication: Cough and other: N/v/d/jie/; Additional info: N/v/d/jie/cough covid+ TECHNIQUE: Imaging protocol: Diagnostic computed tomography of the chest without contrast. Radiation optimization: All CT scans at this facility use at least one of these dose optimization techniques: automated exposure control; mA and/or kV adjustment per patient size (includes targeted exams where dose is matched to clinical indication); or iterative reconstruction. COMPARISON: 1. CR XR CHEST 2V 06/17/2024 11:47 AM 2. CR XR CHEST 2V 09/01/2022 11:[address] CERVICAL SPINE WO CON 07/05/2024 12:49 AM FINDINGS: Lungs: There are scattered calcified granulomas in the lungs which most likely reflect prior granulomatous disease. Pleural spaces: Pleural surfaces are smooth, and there are no pleural effusions, pneumothoraces, or pleural plaques noted. Heart: The heart size is within normal limits, and the pericardium appears clear with no signs of pericardial effusion or thickening. Coronary arteries: The coronary arteries are not well-visualized in this non-gated study, but nosignificant calcification is seen. Esophagus: There is hyperdensity and surgical clips adjacent to the lower esophageal sphincter, correlate for prior surgical intervention. Mediastinal space: The mediastinum appears unremarkable with no evidence of masses, lymphadenopathy, or mediastinal widening. Hilar structures including the major bronchi and vessels appear intact. Lymph nodes: There are calcified mediastinal lymph nodes likely reflecting prior granulomatous disease. Vasculature: The aorta and major blood vessels are of normal caliber. Gallbladder and biliary ducts: The patient is status post cholecystectomy. Bones/joints: There is exaggeration of the spinal curvature. There is diffuse osseous demineralization. There is extensive thoracic spine surgical hardware. Soft tissues: Unremarkable. IMPRESSION: 1. There is hyperdensity and surgical clips adjacent to the lower esophageal sphincter, correlate for prior surgical intervention. 2. No dense parenchymal consolidation, pleural effusion, or pneumothorax.
--- NOTE | 2024-07-05 00:40 | CT_ITS ---
PROCEDURE INFORMATION: Exam: CT Abdomen And Pelvis Without Contrast Exam date and time: 07/05/2024 12:54 AM Age: 64 years old Clinical indication: Nausea and vomiting and other: Nathan; Additional info: N/v/d/nathan TECHNIQUE: Imaging protocol: Computed tomography of the abdomen and pelvis without contrast. Radiation optimization: All CT scans at this facility use at least one of these dose optimization techniques: automated exposure control; mA and/or kV adjustment per patient size (includes targeted exams where dose is matched to clinical indication); or iterative reconstruction. COMPARISON: 1. CT ABDOMEN PELVIS WO CON 01/10/2020 10:00 PM 2. CR XR HIP LT 2-3V W/PELVIS 03/31/2022 8:[address] CHEST WO CON 07/05/2024 12:52 AM FINDINGS: Esophagus: Stable hyperdensity and surgical clips adjacent to the lower esophageal sphincter since at least January 10, 2020 Liver: Normal. Gallbladder and biliary ducts: The patient is status post cholecystectomy. Pancreas: There is fatty replacement of the pancreas. Spleen: Normal. Adrenal glands: The adrenal glands appear normal. Kidneys and ureters: There are no soft tissue renal masses or hydronephrosis. Stomach and bowel: The stomach, small bowel, and colon are well-distended and show no evidence of wall thickening, masses, or obstruction. Appendix: No evidence of appendicitis. Intraperitoneal space: Unremarkable. Vasculature: The abdominal aorta and its major branches appear normal without evidence of aneurysm or stenosis. There are pelvic phleboliths. Lymph nodes: No lymphadenopathy. Urinary bladder: There is moderate distention of the urinary bladder. Reproductive: The patient has undergone prior hysterectomy. Bones/joints: There is anterolisthesis of L4 on L5. Soft tissues: There are calcifications within the buttocks which most likely reflect injection granulomas. Other findings: Please see the dedicated interpretation of the thorax for findings in that region. Calcified enterolith noted. IMPRESSION: 1. No acute inflammatory or obstructive process is identified. Incidental findings are described within the findings section. 2. Please see the dedicated interpretation of the thorax for findings in that region.
--- NOTE | 2024-07-05 00:40 | PC.NURSE ---
Pt to Ct scan via wheelchair
--- NOTE | 2024-07-05 01:46 | PC.NURSE ---
THIS RN PLACED PT ON [facility] CATH PER PT REQUEST. [facility] WAS ALSO PROVIDED AFTER PT HAS BM PER BEDPAN. NO OBVIOUS SKIN ISSUES TO SACRAM.PT NOW RESTING, NO DSTRESS IS NOTED AT THIS TIME. PT AWAITING TRANSFER
[2024-07-05 02:09] VITALS: BP 107/60; PULSE 80; RESP 18; O2SAT 100
[2024-07-05 02:59] LABS: Troponin I < 0.01 ng/ml (0.00-0.034)
[2024-07-05] MEDS: LACTATED RINGERS 1000ML 1,000 ML 100 ML IV (03:12)
[2024-07-05 03:13] VITALS: BP 101/50; PULSE 76; RESP 16; TEMP 36.7; O2SAT 100
[2024-07-05 04:29] LABS: Reflex Lactic Add Lactic Reflex
== END 2024-07-05 03:15 | disposition short-term general hospital (02) ==
PROVIDERS: Emergency Provider Emergency Medicine; PCP Family Medicine
DX: N17.9 Acute kidney failure, unspecified (principal); E87.20 Acidosis, unspecified; R34 Anuria and oliguria; R11.2 Nausea with vomiting, unspecified; R19.7 Diarrhea, unspecified; R07.9 Chest pain, unspecified; R05.9 Cough, unspecified; R53.1 Weakness; R10.9 Unspecified abdominal pain
CPT/HCPCS: 70450; 71250; 72125; 74176; 80053; 82803; 84484; 85025; 93005; 96361; 96374; 99285; J2550; J7120

== ENCOUNTER 2024-07-21 15:15 | Outpatient (CLI) | payer MEDICAID, SELFPAY ==
[2024-07-21 15:27] LABS: Microscopic, Urine URINE MICROSCOPIC (MICROSCOPIC)
[2024-07-21 16:17] LABS: Hematocrit 39.7 % (37.0-47.0); Hemoglobin 13.2 g/dL (12.2-16.2); Mean Corpuscular HGB Conc 33.2 g/dL (31.8-35.4); Mean Corpuscular Hemoglobin 31.5 pg (27.0-31.2); Mean Corpuscular Volume 94.7 fl (81-99); Platelet Count 242 K/mm3 (142-424); Red Blood Count 4.19 M/mm3 (4.20-5.40); Red Cell Distribution Width 13.3 % (11.5-17.5); White Blood Count 7.3 K/mm3 (4.8-10.8)
[2024-07-21 16:30] LABS: Appearance,Urine CLEAR (Clear); Bilirubin,Urine Negative (Negative); Blood, Urine Negative (Negative); Color,Urine YELLOW (Yellow); Glucose,Urine (UA) 3+ (Negative); Ketones,Urine Negative (Negative); Leukocyte Esterase,Urine Negative (Negative); Nitrate,Urine Negative (Negative); Protein,Urine Negative (Negative); Specific Gravity, Urine 1.015 (1.005-1.030); Urobilinogen,Urine 0.2 EU/dl (0.2)
[2024-07-21 16:38] LABS: Creatinine,Urine Random 46 mg/dL (Not Estab.)
[2024-07-21 16:49] LABS: Bacteria,Urine 3+ /lpf
[2024-07-21 16:59] LABS: Albumin Level 4.6 g/dl (3.5-5.0); Chloride 105 mmol/L (98-107); Potassium 4.6 mmoL/L (3.5-5.1); Sodium 136 mmol/L (136-145)
[2024-07-21 17:01] LABS: Blood Urea Nitrogen 22 mg/dl (7-17); Estimated Glomerular Filt Rate 45 ml/min (>60); GFR (African American) 55 ML/MIN (>60)
[2024-07-21 17:02] LABS: Alanine Aminotransferase 23 U/L (12-78); Albumin/Globulin Ratio 1.6 (1.1-1.8); Alkaline Phosphatase 78 U/L (38-126); Anion Gap 14.6 mEq/L (5-15); Aspartate Amino Transferase 33 U/L (14-36); Bilirubin,Total 0.5 mg/dl (0.2-1.3); Calcium 9.5 mg/dl (8.4-10.2); Carbon Dioxide 21 mmol/L (22.0-30.0); Globulin 2.9 g/dL (1.3-3.2); Glucose 155 mg/dl (74-100); Total Protein,Serum 7.5 g/dl (6.3-8.2)
[2024-07-21 17:48] LABS: Uric Acid 4.1 mg/dl (2.5-6.2)
[2024-07-21 18:08] LABS: 25-OH Vitamin D, Total 47.9 ng/mL (30-100)
[2024-07-21 20:28] LABS: Hemoglobin A1C 7.9 % (4.0-6.0)
== END 2024-07-21 23:59 | disposition home or self-care (01) ==
LOC: LAB 15:18
PROVIDERS: Visit Provider Internal Medicine Nephrology
DX: I12.9 Hypertensive chronic kidney disease with stage 1 through stage 4 chronic kidney disease, or unspecified chronic kidney disease (principal); N18.31 Chronic kidney disease, stage 3a; E11.21 Type 2 diabetes mellitus with diabetic nephropathy; Z79.4 Long term (current) use of insulin; E55.9 Vitamin D deficiency, unspecified
CPT/HCPCS: 36415; 80053; 81001; 82306; 82570; 83036; 84156; 84550; 85027; 87086

== ENCOUNTER 2024-10-10 20:37 | Emergency (ER) | payer MEDICAID, SELFPAY ==
[2024-10-10 20:47] VITALS: BP 156/136; PULSE 96; O2SAT 97
[2024-10-10 20:50] VITALS: BP 174/88; PULSE 101; RESP 18; TEMP 36.7; O2SAT 97; O2SAT 98; BMI 24.0
[2024-10-10 20:55] LABS: Microscopic, Urine URINE MICROSCOPIC (MICROSCOPIC)
[2024-10-10 20:56] LABS: Appearance,Urine CLEAR (Clear); Bilirubin,Urine Negative (Negative); Blood, Urine Negative (Negative); Color,Urine YELLOW (Yellow); Glucose,Urine (UA) 3+ (Negative); Ketones,Urine Negative (Negative); Leukocyte Esterase,Urine Negative (Negative); Nitrate,Urine Negative (Negative); Protein,Urine Negative (Negative); Specific Gravity, Urine 1.025 (1.005-1.030); Urobilinogen,Urine 0.2 EU/dl (0.2)
[2024-10-10] MEDS: PHENAZOPYRIDINE 200MG TABLET 200 MG PO (20:56)
[2024-10-10 21:00] VITALS: BP 155/78; PULSE 82; O2SAT 97
[2024-10-10 21:05] LABS: Basophils # 0.1 K/mm3 (0-0.2); Basophils % 0.7 % (0.1-2.0); Eosinophils # 0.1 K/mm3 (0.0-0.4); Eosinophils % 1.6 % (0.1-12.0); Hematocrit 42.8 % (37.0-47.0); Hemoglobin 14.7 g/dL (12.2-16.2); Lymphocytes # 2.8 K/mm3 (0.7-4.5); Lymphocytes % 34.6 % (10-50); Mean Corpuscular HGB Conc 34.3 g/dL (31.8-35.4); Mean Corpuscular Hemoglobin 32.5 pg (27.0-31.2); Mean Corpuscular Volume 94.7 fl (81-99); Mean Platelet Volume 10.3 fl (7.4-10.4); Monocytes # 0.5 K/mm3 (0.1-1.0); Monocytes % 5.7 % (1.7-9.3); Neutrophils # 4.7 K/mm3 (1.8-7.8); Neutrophils % 57.2 % (37.0-80.0); Platelet Count 226 K/mm3 (142-424); Red Blood Count 4.52 M/mm3 (4.20-5.40); Red Cell Distribution Width 12.9 % (11.5-17.5); White Blood Count 8.2 K/mm3 (4.8-10.8)
[2024-10-10 21:05] LABS: Bacteria,Urine Trace /lpf
[2024-10-10 21:10] LABS: Albumin Level 4.7 g/dl (3.5-5.0); Chloride 107 mmol/L (98-107); Potassium 4.1 mmoL/L (3.5-5.1); Sodium 143 mmol/L (136-145)
[2024-10-10 21:13] LABS: Alanine Aminotransferase 29 U/L (12-78); Albumin/Globulin Ratio 1.3 (1.1-1.8); Alkaline Phosphatase 84 U/L (38-126); Anion Gap 19.1 mEq/L (5-15); Aspartate Amino Transferase 35 U/L (14-36); Bilirubin,Total 0.4 mg/dl (0.2-1.3); Blood Urea Nitrogen 24 mg/dl (7-17); Carbon Dioxide 21 mmol/L (22.0-30.0); Creatinine Clearance Estimated 33 mL/min (50-200); Estimated Glomerular Filt Rate 35 ml/min (>60); GFR (African American) 42 ML/MIN (>60); Globulin 3.6 g/dL (1.3-3.2); Lipase 199 U/L (23-300); Total Protein,Serum 8.3 g/dl (6.3-8.2)
[2024-10-10 21:14] LABS: Calcium 9.4 mg/dl (8.4-10.2); Glucose 260 mg/dl (74-100)
--- NOTE | 2024-10-10 21:23 | ED_ITS ---
Discharge Plan Disposition Patient Disposition: Home, Self-Care Chief Complaint: Abdominal Pain Prescriptions Prescriptions: No Action bupropion HCl 150 mg tablet sustained-release 12 hr 150 mg PO BID tizanidine 4 mg tablet 4 mg PO BID amlodipine 5 mg tablet 5 mg PO DAILY aspirin 81 mg tablet,chewable 81 mg PO DAILY gabapentin 100 mg capsule 100 mg PO TID lisinopril 2.5 mg tablet 2.5 mg PO DAILY spironolactone 50 mg tablet 50 mg PO DAILY insulin glargine [Lantus Solostar U-100 Insulin] 100 unit/mL (3 mL) insulin pen 15 unit SQ DAILY Rx Instructions: units per MD daily diclofenac sodium [Voltaren Arthritis Pain] 1 % gel 4 g topical QID Qty: 50 0RF Rx Instructions: apply to single knee, ankle, foot; for foot includes sole/toes/top of foot promethazine 25 mg tablet 25 mg PO HS cefdinir 300 mg capsule 300 mg PO BID 7 Days Qty: 14 0RF fluconazole 150 mg tablet 150 mg PO Q3D Qty: 2 0RF Rx Instructions: may repeat second dose 72 hrs after first dose if symptoms persist promethazine 25 mg tablet 25 mg PO Q6H PRN (Reason: nausea and vomiting) 7 Days Qty: 10 0RF atorvastatin 40 mg tablet 40 mg PO HS methocarbamol 500 mg tablet 500 mg PO TID famotidine 20 mg tablet 20 mg PO BID meclizine 25 mg tablet 25 mg PO TID insulin lispro [Humalog KwikPen Insulin] 100 unit/mL insulin pen 20 unit SQ ACHS hydrocodone-acetaminophen 5-325 mg tablet 1 tab PO TIDP PRN (Reason: Pain) allopurinol 100 mg tablet 100 mg PO DAILY polyethylene glycol 3350 17 gram/dose powder 17 g PO DAILY topiramate 100 mg tablet 200 mg PO HS cholecalciferol (vitamin D3) 10 mcg (400 unit) tablet 400 mcg PO DAILY Premarin 0.3 mg tablet 0.3 mg PO DAILY levofloxacin 500 mg tablet 500 mg PO DAILY Qty: 5 0RF Referrals Follow up/Referrals: Provider,Referral, MD [Primary Care Provider] - See instructions Activity Restrictions/Add. Instructions Additional Instructions/Restrictions: Call your family doctor to establish care for this visit to the emergency department and schedule follow-up within 48 hours to ensure improvement. If you have any worsening of your condition or any other concerning signs or symptoms, return to the emergency department or your primary care doctor for further evaluation. Take Tylenol 1000 mg every 6 hours (4 times daily) and ibuprofen 400 mg every 6 hours (4 times daily) as needed with food and water to prevent GI upset and kidney damage. Clinical Impressions Clinical Impression: Abdominal pain Instructions Patient Instructions: DI for Acute Abdominal Pain Print Language Print Language: Greek Discharge ED Provider: [facility] HPI General Chief complaint: Abdominal Pain Stated complaint: burning when urinating , abdomin pain Time Seen by Provider: 10/10/24 20:39 Mode of Arrival: Ambulatory Source of Information: Patient Description of Symptoms (Recalled from ER Triage Doc. by RN): patient states she has been having burning itching and abdominal pain the past 2-3 days. she states the abdominal pain feels like pressure. History of Present Illness HPI narrative: Please note that above description of symptoms, in this electronic medical record under categorization of recalled from ER triage doctor by RN are reflective of an initial nursing assessment, however, is not reflective of my full history and physical exam that was personally taken and clarified. Consequentially, this preceding description of symptoms, which may include the patient's categorized chief complaint in the EMR, do not reflect my personal clinical impression, and the ultimate description of history of present illness and patient stated complaints should be deferred to this section of the note. Unless stated otherwise or congruent with this section of the note, additional signs, symptoms, or incongruence should be interpreted as inaccurate with my clinical impression. Related Data Home Medications ?Medication ?Instructions ?Recorded ?Confirmed amlodipine 5 mg tablet 5 mg PO DAILY 03/31/22 10/15/23 aspirin 81 mg chewable tablet 81 mg PO DAILY 03/31/22 10/15/23 bupropion HCl 150 mg tablet,12 hr 150 mg PO BID Depression 03/31/22 10/15/23 sustained-release gabapentin 100 mg capsule 100 mg PO TID neuropathy 03/31/22 10/15/23 insulin glargine 100 unit/mL (3 15 unit SQ DAILY Diabetes 03/31/22 10/15/23 mL) subcutaneous pen (Lantus Solostar U-100 Insulin) lisinopril 2.5 mg tablet 2.5 mg PO DAILY High blood pressure 03/31/22 10/15/23 spironolactone 50 mg tablet 50 mg PO DAILY High blood pressure 03/31/22 10/15/23 tizanidine 4 mg tablet 4 mg PO BID neuropathy 03/31/22 10/15/23 atorvastatin 40 mg tablet 40 mg PO HS 05/06/23 10/15/23 famotidine 20 mg tablet 20 mg PO BID 05/06/23 10/15/23 insulin lispro 100 unit/mL 20 unit SQ ACHS 05/06/23 10/15/23 subcutaneous pen (Humalog KwikPen (U-100) Insulin) meclizine 25 mg tablet 25 mg PO TID 05/06/23 10/15/23 methocarbamol 500 mg tablet 500 mg PO TID 05/06/23 10/15/23 allopurinol 100 mg tablet 100 mg PO DAILY 05/07/23 10/15/23 cholecalciferol (vitamin D3) 10 400 mcg PO DAILY 05/07/23 10/15/23 mcg (400 unit) tablet conjugated estrogens 0.3 mg tablet 0.3 mg PO DAILY 05/07/23 10/15/23 (Premarin) hydrocodone 5 mg-acetaminophen 325 1 tab PO TIDP PRN Pain 05/07/23 10/15/23 mg tablet polyethylene glycol 3350 17 17 g PO DAILY 05/07/23 10/15/23 gram/dose oral powder topiramate 100 mg tablet 200 mg PO HS migraine 05/07/23 11/19/23 promethazine 25 mg tablet 25 mg PO HS migraine 11/19/23 11/19/23 Previous Rx's ?Medication ?Instructions ?Recorded levofloxacin 500 mg tablet 500 mg PO DAILY #5 tabs 05/09/23 diclofenac sodium 1 % topical gel 4 g topical QID #50 grams 08/29/23 (Voltaren Arthritis Pain) cefdinir 300 mg capsule 300 mg PO BID 7 days #14 caps 01/31/24 fluconazole 150 mg tablet 150 mg PO Q3D 2 doses #2 tabs 01/31/24 promethazine 25 mg tablet 25 mg PO Q6H PRN nausea and 06/17/24 vomiting 7 days #10 tabs Allergies Allergy/AdvReac Type Severity Reaction Status Date / Time acetaminophen (From Tylenol) Allergy Verified 09/11/23 11:01 amoxicillin Allergy Verified 09/11/23 11:01 butorphanol (From Stadol) Allergy Verified 09/11/23 11:01 clavulanic acid Allergy Verified 09/11/23 11:01 fexofenadine Allergy Verified 09/11/23 11:01 ibuprofen Allergy Verified 09/11/23 11:01 ketorolac Allergy Verified 09/11/23 11:01 metoclopramide Allergy Verified 09/11/23 11:01 nizatidine Allergy Verified 09/11/23 11:01 ondansetron (From Zofran) Allergy Verified 09/11/23 11:01 prochlorperazine Allergy Verified 09/11/23 11:01 propoxyphene Allergy Verified 09/11/23 11:01 PFSH [facility] Disclaimer: The information contained in this section may have been updated after the patient was seen, as this information can be updated by other users. 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) CAD (coronary artery disease) HLD (hyperlipidemia) VIOLA (acute kidney injury) Fall Vertigo Headache Acute sore throat Upper respiratory infection, viral URI (upper respiratory infection) Depression Anxiety Migraine Diabetes mellitus, type 2 Asthma Hypertension Lumbar radiculopathy Cervical disc disease Exposure to COVID-19 virus Viral upper respiratory infection Laceration Diabetes Prepatellar bursitis, left knee Urinary tract infection Surgical History , THEATRICAL PERFORMER) History of tubal ligation History of tonsillectomy History of section History of cholecystectomy Family History , THEATRICAL PERFORMER) Heart failure Cancer Hypertension Social History , THEATRICAL PERFORMER) Smoking Status: Never smoker alcohol intake: never current occupational status: other Travel in the last 8 weeks: None Have you lived/traveled outside [place] in past 30 days?: No Contact w/someone who lives/traveled outside [place] past 30 days?: No Exposure to someone with infectious disease in past 14 days?: No Do you have a fever (greater than 100.4 F or 38 C)?: No Have you tested positive for COVID-19: No Exposed to someone with COVID-19 in past 14 days?: No Do you have a sore throat?: No Do you have a cough?: No Do you have any weakness?: No Do you have any diarrhea?: No Are you experiencing any unusual bleeding?: No Do you have any muscle aches/pain?: No Do you have any abdominal pain?: No Are you experiencing loss of taste or smell?: No Other 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 Have you received the Flu Vaccine for this season: No Have you received the Pneumonia Vaccine: No ROS Obtained: Yes All systems reviewed & no additional complaints except as documented Physical Exam General General appearance: alert and in no apparent distress Head Head exam: atraumatic and normocephalic Eye Eye exam: Present normal appearance, PERRL and EOMI Neck Neck exam: Present normal inspection, full ROM and trachea midline Respiratory Respiratory exam: Absent respiratory distress, wheezes, stridor, accessory muscle use or prolonged expiratory phase Cardiovascular Cardiovascular exam: Present normal rhythm, tachycardia and other (Pulses equal symmetric in upper and lower extremities) Abdominal Exam Abdominal exam: Present soft and tenderness; Absent distention, guarding, rebound, rigidity or pulsatile mass Abdominal tenderness: Present LLQ and suprapubic Extremities Exam Extremities exam: Absent edema Neurological Exam Neurological exam: Present alert, oriented X3 and CN II-XII intact; Absent motor sensory deficit Skin Skin exam: Present warm and dry; Absent diaphoresis or erythema Medical Decision Making Medical Records Medical records reviewed: Yes I reviewed the patient's medical records. Screening: Per USPSTF and CDC recommendations, given the prevalence of disease in our region, it is our hospital?s policy to screen for HIV and viral Hepatitis for all patients aged 18 and over and those with ongoing risk factors. Mirza Inquiry Pt receiving controlled substance: No Mirza was queried for this patient: No Vital Signs: 10/10/24 20:47 10/10/24 20:50 10/10/24 20:50 Temperature 98.1 F Temperature Source Oral Pulse Rate 96 H Pulse Rate [Right] 101 H Respiratory Rate 18 Blood Pressure 156/136 H 174/88 H Blood Pressure [Right Arm] 174/88 H Blood Pressure Mean [Right Arm] 116 Blood Pressure Source [Right Arm] Automatic Cuff Blood Pressure Position [Right Arm] Sitting 02 Sat by Pulse Oximetry 97 98 97 Oxygen Delivery Method Room Air 10/10/24 21:00 10/10/24 21:31 10/10/24 22:25 Temperature Temperature Source Pulse Rate 82 80 75 Pulse Rate [Right] Respiratory Rate Blood Pressure 155/78 H 163/40 H 159/81 H Blood Pressure [Right Arm] Blood Pressure Mean [Right Arm] Blood Pressure Source [Right Arm] Blood Pressure Position [Right Arm] 02 Sat by Pulse Oximetry 97 99 100 Oxygen Delivery Method Lab Data Lab Results 10/10/24 20:41: Urine Color Yellow, Urine Appearance Clear, Urine pH 6.0, Ur Specific [place] 1.025, Urine Protein Negative, Urine Glucose (UA) 3+, Urine Ketones Negative, Urine Blood Negative, Urine Nitrate Negative, Urine Bilirubin Negative, Urine Urobilinogen 0.2, Ur Leukocyte Esterase Negative, Urine RBC None, Urine WBC None, Ur Squamous Epith Cells 3-5, Urine Bacteria Trace 10/10/24 20:55: WBC 8.2, RBC 4.52, Hgb 14.7, Hct 42.8, MCV 94.7, MCH 32.5 H, MCHC 34.3, RDW 12.9, Plt Count 226, MPV 10.3, Neut % (Auto) 57.2, Lymph % (Auto) 34.6, [place] % (Auto) 5.7, Eos % (Auto) 1.6, Baso % (Auto) 0.7, Neut # (Auto) 4.7, Lymph # (Auto) 2.8, [place] # (Auto) 0.5, Eos # (Auto) 0.1, Baso # (Auto) 0.1, Sodium 143, Potassium 4.1, Chloride 107, Carbon Dioxide 21 L, Anion Gap 19.1 H, BUN 24 H, Creatinine 1.50 H, Estimated Creat Clear 33, Estimated GFR 35 L, Est GFR ( Amer) 42 L, Glucose 260 H, Calcium 9.4, Total Bilirubin 0.4, AST 35, ALT 29, Alkaline Phosphatase 84, Total Protein 8.3 H, Albumin 4.7, Globulin 3.6 H, Albumin/Globulin Ratio 1.3, Lipase 199, HCV Ab ISABELLA w/Rflx PCR Qn Negative, HIV Ag/Ab Combo Qual Negative 10/10/24 20:55 10/10/24 20:55 Orders (Tests/Meds): ED MEDICATIONS Generic Name Dose Route Start Last Admin Trade Name Freq PRN Reason Stop Dose Admin Sodium Chloride 10 ml 10/10/24 21:44 10/10/24 21:45 Sodium Chloride 0.9% 10ml Syr (Rad Only) IV 11/09/24 21:43 10 ml NEEDED PRN Administration Maintain IV Site Discontinued Medications Generic Name Dose Route Start Last Admin Trade Name Irvin PRN Reason Stop Dose Admin Iopamidol 75 ml 10/10/24 21:44 10/10/24 21:45 Iopamidol-370 (76%);100ml Bottle IV 10/10/24 21:45 75 ml ONCE ONE Administration Phenazopyridine HCl 200 mg 10/10/24 20:51 10/10/24 20:56 Phenazopyridine 200mg Tablet PO 10/10/24 20:52 200 mg ONCE ONE Administration ORDERS Category Date Time Status CT abdomen pelvis w con Stat Cat Scan 10/10/24 21:24 Completed CBC w/Auto Diff [Complete Blood Count Auto Diff] Stat Lab 10/10/24 20:55 Completed CMP [Comprehensive Metabolic Panel] Stat Lab 10/10/24 20:55 Completed HIV Combo Stat Lab 10/10/24 20:55 Completed Hepatitis C Ab Qual. W/ RFX Stat Lab 10/10/24 20:55 Completed Lipase Stat Lab 10/10/24 20:55 Completed UA [Urinalysis and Microscopic] Stat Lab 10/10/24 20:41 Completed Medical Decision Narrative: This is a 64-year-old female presenting with abdominal pain. Patient has had cholecystectomy, appendectomy, hysterectomy. She states that it started a couple days prior to this. It is lower abdominal, associated with frequency and dysuria. No hematuria, fevers, chills, flank pain, nausea, vomiting, diarrhea, vaginal discharge or bleeding, or any other concerns. Has not taken anything for the pain. History was obtained via conversation with patient. On arrival, patient hemodynamically stable, alert, oriented x4, appropriate, GCS 15, moving all extremities spontaneously, pupils equal and reactive to light. Full physical exam performed and significant for clinically well-appearing female who is in no acute distress, but she does have abdominal tenderness in the suprapubic region. Appears to be mild in intensity. No rebound, rigidity, or guarding. No overlying skin changes, no flank tenderness. Differential includes PUD, gastritis, enteritis, gastroenteritis, pancreatitis, SBO, colitis, diverticulitis, nephrolithiasis, UTI, hepatitis, less likely aortic pathology, mesenteric ischemia among others. Patient placed on continuous cardiac monitoring and continuous pulse ox with initial blood pressure 159/81, heart rate 75, saturation 100% on room air. Patient was given phenazopyridine for symptomatic management and correction of underlying abnormalities. Workup independently interpreted and significant for nonactionable CBC. Chemistry with stable CKD creatinine 1.5 and BUN 24. Patient's anion gap 19 with mildly elevated glucose of 260, however patient's anion gap appears to chronically be elevated. Urinalysis with glucose, but no ketones or signs of infection. On independent interpretation of imaging, no acute intra-abdominal pathology. See radiology read for full review of final results. On reevaluation, patient resting at baseline, on her phone, clinically well-appearing and in no acute distress. Given patient presentation, workup, history, this most likely represents idiopathic abdominal pain. Because etiology of abdominal pain was not identified today, this was relayed to patient close return precautions were discussed. Because patient at baseline without signs or symptoms of clinical decompensation, deemed appropriate for discharge. Results were relayed to patient who voiced understanding and were agreeable to outpatient management and follow up. I discussed my clinical impression with patient and answered all questions. At this time, the evidence for any other entities in the differential is insufficient to warrant any further testing or ED observation. This was explained as well. Advisory was given that persistent or worsening symptoms require further evaluation. I confirmed the understanding of this discussion. [employer] disclaimer Much of this encounter note is an electronic lapel padder spoken language to printed text. Electronic lapel padder of the spoken language may permit errors. Although I have reviewed the note, some errors may still exist. Critical Care Critical Care Time Critical Care Time: No
--- NOTE | 2024-10-10 21:24 | CT_ITS ---
PROCEDURE INFORMATION: Exam: CT Abdomen And Pelvis With Contrast Exam date and time: 10/10/2024 9:39 PM Age: 64 years old Clinical indication: Abdominal pain; Additional info: Lower abdominal pain, moderate TECHNIQUE: Imaging protocol: Computed tomography of the abdomen and pelvis with contrast. Radiation optimization: All CT scans at this facility use at least one of these dose optimization techniques: automated exposure control; mA and/or kV adjustment per patient size (includes targeted exams where dose is matched to clinical indication); or iterative reconstruction. Contrast material: ISOVUE; Contrast volume: 75 ml; Contrast route: IV; COMPARISON: CT ABDOMEN PELVIS WO CON 07/05/2024 12:54 AM FINDINGS: Lungs: Benign calcified right middle lobe pulmonary granuloma. Calcified hilar lymph nodes. Liver: Normal. No mass. Gallbladder and biliary ducts: Surgically absent gallbladder. No biliary ductal dilatation. Pancreas: Normal. No ductal dilation. Spleen: Normal. No splenomegaly. Adrenal glands: Normal. No mass. Kidneys and ureters: Normal. No hydronephrosis. Stomach and bowel: Unremarkable. No obstruction. No mucosal thickening. Appendix: Not visualized. Intraperitoneal space: Unremarkable. No free air. No significant fluid collection. Vasculature: Mild atherosclerotic calcification of aortoiliac arteries without aneurysm. Lymph nodes: Unremarkable. Urinary bladder: Unremarkable as visualized. Reproductive: Unremarkable as visualized. Bones/joints: Mild chronic L4 on L5 anterolisthesis. No acute fracture. Soft tissues: Unremarkable. IMPRESSION: No acute findings identified.
[2024-10-10 21:31] VITALS: BP 163/40; PULSE 80; O2SAT 99
[2024-10-10] MEDS: SODIUM CHLORIDE 0.9% 10ML SYR (RAD ONLY) 10 ML IV (21:45)
[2024-10-10] MEDS: IOPAMIDOL-370 (76%);100ML BOTTLE 75 ML IV (21:45)
[2024-10-10 22:01] LABS: HIV Combo NEGATIVE (Negative)
[2024-10-10 22:09] LABS: Hepatitis C Ab Qual. W/ RFX NEGATIVE (Negative)
[2024-10-10 22:25] VITALS: BP 159/81; PULSE 75; O2SAT 100
[2024-10-10 22:37] VITALS: BP 159/81; PULSE 75; RESP 15; TEMP 36.7; O2SAT 100
== END 2024-10-10 22:50 | disposition home or self-care (01) ==
PROVIDERS: Emergency Provider Emergency Medicine
DX: R10.30 Lower abdominal pain, unspecified (principal); R30.9 Painful micturition, unspecified; R30.0 Dysuria
CPT/HCPCS: 74177; 80053; 81001; 83690; 85025; 86803; 87389; 99285; Q9967

== ENCOUNTER 2025-02-11 01:13 | Emergency (ER) | payer MEDICAID, SELFPAY ==
--- OUTSIDE RECORDS SUMMARY | 2024-12-14 05:00 | XMS_ITS ---
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 relief for 4 months 12/13/2021 - #2 HIP RT IA - 60% relief for 4 months 06/18/2022 - #3 HIP RT IA - 50% relief for 5 days 12/17/2022- #2 RT HIP IA -80% relief for 3 months 06/08/2024 #1 PAYAM HIP IA 80% relief for 3 months 07/20/2024 #1 RT SIJI 90% relief for 3 months 10/28/2024 #1 LMBB PAYAM L4 L5 S1 80% relief for 2 months 11/18/2024 #2 LMBB PAYAM L4 L5 S1 80% relief ongoing as of 12/14/2024 12/06/2024 RFA PAYAM L4 L5 S1 85% relief ongoing as of 12/14/2024 PREVIOUS PAIN CLINIC CARE: [facility] [place], [place] - for about 10 years COMPLIANCE RISK ASSESSMENT AND STRATIFICATI ON: RISK GROUP: MODERATE RISK Due to: muscle relaxer Anxiety URINE DRUG TESTIN11/07/2023 Screen Expected Definitive Expected 01/09/2024 Screen Expected 03/10/2024 Screen Expected 05/14/2024 Screen Expected 08/04/2024 Screen Expected ; Definitive Expected 12/13/2024 Screen Expected MONITORING: Morphine Equivalent (MME): 23 TREY reviewed today and appropriate TESTING/RISK ASSESSMENTS ORT Score/Result: 3, Anxiety, Depression, Family history of substance abuse, Personal history of substance abuse TODAYS PAIN EVALUATION MEDICATION FOLLOW UP: Becka gil is currently prescribed Aurora 7.5/325mg BID which provides 80% pain relief for 4 hours. Last dose of medication taken 12/13/2024 Denies side effects CURRENT PAIN SYMPTOMS: Location of Worst Pain:: Low Back, Hip(s) Additional Location of Pain:: Neck Pain Frequency:: constant, always Pain Description:: aching, b urning, cramping, sharp, stabbing, numb, tingling Average Pain Score VAS:: 10 Pain Exacerbation:: cleanig,bending Pain Alleviation:: sitting ADL/Quality of Life Interference:: clean ing and standing PROCEDURAL FOLLOW UP: The patient is present today for a follow-up after receiving ___. Patient reports ___% pain relief since having the procedure and has lasted ___ 10/28/2024 #1 LMBB PAYAM L4 L5 S1 80% relief for 2 months 11/18/2024 #2 LMBB PAYAM L4 L5 S1 80% relief ongoing as of 12/14/2024 12/06/2024 RFA PAYAM L4 L5 S1 85% relief ongoing as of 12/14/2024 Examination Category Sub-Category Detail Notes Category Not es General Examination HEENT: unremarkable Neck, Thyroid : supple Heart: regular rate Extremities: no clubbing, no traci a General Appearance: well-nourished indiv idual in no acute distress. The patient is alert and oriented and cooperative for evaluation Skin normal, no rash Neurologic Exam: Patient ambulates wi th an antalgic gait, pitched forward Nurse/Green Prize Packer: Jada-Gomez)Catherine 12/14/2024 9:04:42 AM > Cervical Spine/Neck Vertebral spine tenderness: tenderness over the upper facets bilaterally at the C2,3,4 facets Paraspinal muscle spasm: scaline tendern ess greater than right Range of motion of neck: minimal rom to left with extension Sensations: sensation intact to light palpation, FROM, pulses +2 Motor strength: motor strength symme tric and 5/5, DTRs symmetric and 2+/4 Lumbar Spine/Lower Back Straight leg raising test: neg ative bilaterally Motor system: motor strength 5/5 i n all muscle groups bilaterally Sensory exam: sensation intact to light touch throughout bilateral lower extremities, no edema or discoloration noted Inspection: right si joint tende rness Palpation: diffuse tenderness t hroughout lumbar region and right SI joint tenderness. Spasms absent Patricks test Positive on the righ t Sacroiliac Joint tender to palpation across SI joint with a positive Miriam, positive thigh thrust, and positive SI Compression noted on the right Hip / Thigh Hip joint: right Inspection: + MAGGIE PAYAM,
[2025-02-11 01:35] VITALS: BP 129/71; PULSE 72; RESP 16; TEMP 36.6; O2SAT 97; BMI 23.4
--- OUTSIDE RECORDS SUMMARY | 2025-02-11 01:38 | XMS_ITS | Clinical Summary ---
Author Organization [employer] [facility] Address [address] [place] [address] Phone Care Team Providers [facility] [place] Superintendent Name Role Phone Len Garcia MD Primary Care Physician [phone] Conditions or Problems Problem Name Problem Code Onset Date Status Entry Date Provider Comment Standard Description Annotate Pain in left shoulder 07930246 (SNOMED CT) 08/04 Active 08/04 Len Garcia MD Pain of shoulder region Body mass index (BMI) 31.0-31.9; adult Z68.31 (ICD-10-CM ) 07/11 Active 07/11 Len Garcia MD Body mass index [BMI] 31.0-31.9, adult Body mass index (BMI) 31.0-31.9; adult Z68.31 (ICD-10-CM ) Correction Len Garcia MD Body mass index [BMI] 31.0-31.9, adult Gout 26885460 (SNOMED CT) 07/11 Active 07/11 Len Garcia MD Gout Body mass index (BMI) 31.0-31.9; adult Z68.31 (ICD-10-CM ) Removed Len Garcia MD Body mass index [BMI] 31.0-31.9, adult Body mass index (BMI) 30.0-30.9; adult Z68.30 (ICD-10-CM ) 02/11 Correction 02/11 Len Garcia MD Body mass index [BMI] 30.0-30.9, adult Hypertriglyc eridemia 036503713 (SNOMED CT) Active Len Garcia MD Hypertriglyceri demia Body mass index (BMI) 30.0-30.9; adult Z68.30 (ICD-10-CM ) 02/11 Removed 02/11 Len Garcia MD Body mass index [BMI] 30.0-30.9, adult Body mass index (BMI) 29.0-29.9; adult Z68.29 (ICD-10-CM ) 01/14 Correction 01/14 Len Garcia MD Body mass index [BMI] 29.0-29.9, adult Diabetic peripheral neuropathy 097922577 (SNOMED CT) 02/11 Active 02/11 Len Garcia MD Diabetic peripheral neuropathy Generalized anxiety disorder 20659512 (SNOMED CT) 01/14 Active 01/14 Len Garcia MD Generalized anxiety disorder Body mass index (BMI) 29.0-29.9; adult Z68.29 (ICD-10-CM ) 01/14 Removed 01/14 Len Garcia MD Body mass index [BMI] 29.0-29.9, adult Pain in left shoulder 75819750 (SNOMED CT) 01/14 Active 01/14 Len Garcia MD Pain of shoulder region Body mass index (BMI) 31.0-31.9; adult Z68.31 (ICD-10-CM ) 10/21 Correction 10/21 Len Garcia MD Body mass index [BMI] 31.0-31.9, adult Body mass index (BMI) 31.0-31.9; adult Z68.31 (ICD-10-CM ) 10/21 Removed 10/21 Len Garcia MD Body mass index [BMI] 31.0-31.9, adult Body mass index (BMI) 33.0-33.9; adult Z68.33 (ICD-10-CM ) 07/08 Correction 07/08 Len Garcia MD Body mass index [BMI] 33.0-33.9, adult Body mass index (BMI) 33.0-33.9; adult Z68.33 (ICD-10-CM ) 07/08 Removed 07/08 Len Garcia MD Body mass index [BMI] 33.0-33.9, adult Body mass index (BMI) 34.0-34.9; adult Z68.34 (ICD-10-CM ) 04/02 Correction 04/02 Len Garcia MD Body mass index [BMI] 34.0-34.9, adult Body mass index (BMI) 34.0-34.9; adult Z68.34 (ICD-10-CM ) 04/02 Removed 04/02 Len Garcia MD Body mass index [BMI] 34.0-34.9, adult Body mass index (BMI) 34.0-34.9; adult Z68.34 (ICD-10-CM ) 01/15 Correction 01/15 Len Garcia MD Body mass index [BMI] 34.0-34.9, adult Body mass index (BMI) 34.0-34.9; adult Z68.34 (ICD-10-CM ) 01/15 Removed 01/15 Len Garcia MD Body mass index [BMI] 34.0-34.9, adult Body mass index (BMI) 34.0-34.9; adult Z68.34 (ICD-10-CM ) 11/07 Correction 11/07 Len Garcia MD Body mass index [BMI] 34.0-34.9, adult Body mass index (BMI) 34.0-34.9; adult Z68.34 (ICD-10-CM ) 11/07 Removed 11/07 Len Garcia MD Body mass index [BMI] 34.0-34.9, adult Body mass index (BMI) 34.0-34.9; adult Z68.34 (ICD-10-CM ) 09/27 Correction 09/27 Len Garcia MD Body mass index [BMI] 34.0-34.9, adult Strep pharyngitis 30076286 (SNOMED CT) 11/07 Inactive 11/07 Len Garcia MD Streptococcal sore throat Body mass index (BMI) 34.0-34.9; adult Z68.34 (ICD-10-CM ) 09/27 Removed 09/27 Len Garcia MD Body mass index [BMI] 34.0-34.9, adult Body mass index (BMI) 34.0-34.9; adult Z68.34 (ICD-10-CM ) 08/28 Correction 08/28 Len Garcia MD Body mass index [BMI] 34.0-34.9, adult Body mass index (BMI) 34.0-34.9; adult Z68.34 (ICD-10-CM ) 08/28 Removed 08/28 Len Garcia MD Body mass index [BMI] 34.0-34.9, adult Hoarseness 01999883 (SNOMED CT) 08/28 Active 08/28 Len Garcia MD Hoarse Dysuria 97385288 (SNOMED CT) 07/31 Active 07/31 Len Garcia MD Dysuria GERD 045714848 (SNOMED CT) 07/31 Active 07/31 Len Garcia MD Gastroesophagea l reflux disease Chronic antral gastritis 75352972 (SNOMED CT) 02/21 Active 02/21 Len Garcai MD Chronic antral gastritis Migraine headache 04504071 (SNOMED CT) 01/25 Active 01/25 Len Garcia MD Migraine Hypertension , benign essential 1784503 (SNOMED CT) 01/25 Active 01/25 Len Garcia MD Benign essential hypertension Ventral hernia, incisional 491009044 (SNOMED CT) 12/06 Active 12/06 Len Garcia MD Incisional hernia Screening for colon cancer 368611412 (SNOMED CT) 12/06 Inactive 12/06 Len Garcia MD Screening for malignant neoplasm of colon Vaginal candidiasis 72079731 (SNOMED CT) 11/02 Inactive 11/02 Len Garcia MD Candidiasis of vagina Chronic kidney disease stage 2 927769138 (SNOMED CT) 10/17 Active 10/17 Len Garcia MD Chronic kidney disease stage 2 Venous stasis 64538592 (SNOMED CT) 09/17 Active 09/17 Len Garcia MD Venous stasis Tinea corporis 85839891 (SNOMED CT) 09/17 Inactive 09/17 Len Garcia MD Tinea corporis Neck pain, acute 17144879 (SNOMED CT) 09/11 Active 09/11 Len Garcia MD Neck pain Low back pain, chronic 084991877 (SNOMED CT) 09/11 Active 09/11 Len Garcia MD Chronic low back pain Bronchitis, acute 89711355 (SNOMED CT) 07/21 Inactive 07/21 Len Garcia MD Acute bronchitis Hyperlipidem ia 55354763 (SNOMED CT) Active 07/21 Len Garcia MD Hyperlipidemia Diabetes, Type 2 E11.9 (ICD-10-CM ) Active 07/21 Len Garcia MD Type 2 diabetes mellitus without complications Anxiety Disorder 561304255 (SNOMED CT) Active 07/21 Len Garcia MD Anxiety disorder Medications Medication Instructions Start Date Stop Date Generic Name ND Provider BD PEN NEEDLE MINI U/F 31G X 5 MM USE DIRECTED 07/11 INSULIN PEN NEEDLE [id number] Len Garcia MD PREDNISONE 20 MG TABS TAKE 1 TABLET BY MOUTH 2 TIMES A DAY FOR 5 DAYS 08/04 PREDNISONE 58238309646 Len Garcia MD ONE TOUCH DELICA LANCETS TEST BLOOD SUGAR 3 TIMES A DAY 07/08 LANCETS [id number] Len Garcia MD ONE TOUCH ULTRA TEST STRIPS TEST BLOOD SUGAR THREE TIMES A DAY 12/02 GLUCOSE BLOOD 41376374698 Len Garcia MD ALLOPURINOL 100 MG TABS one tablet by mouth daily 07/13 ALLOPURINOL 40453067950 Len Garcia MD VASCEPA 1 GM CAPS 2 capsules by mouth twice a day ICOSAPENT ETHYL 81121586541 Len Garcia MD RANITIDINE 150 MG TABLET TAKE 1 TABLET BY MOUTH TWICE A DAY 03/13 RANITIDINE HCL 90316047182 Len Garcia MD EASY TOUCH INSULIN SYRINGE 31G X 5/16 0.5 ML USE DIRECTED WITH INSULIN 03/13 INSULIN SYRINGE-NEEDLE U-100 49849473718 Len Garcia MD BD PEN NEEDLE SHORT ULTRAFINE 31G X 8 MM USE DIRECTED 03/13 INSULIN PEN NEEDLE 62451220433 Len Garcia MD ONE TOUCH ULTRA TEST STRIPS TEST BLOOD SUGAR EVERY MORNING DIRECTED 12/02 GLUCOSE BLOOD 45501110137 Len Garcia MD ATORVASTATIN CALCIUM 40 MG TABS TAKE 1 TABLET BY MOUTH AT BEDTIME 02/18 ATORVASTATIN CALCIUM 19752542254 Len Garcia MD CRESTOR 10 MG TABS TAKE 1 TABLET BY MOUTH AT BEDTIME FOR CHOLESTEROL 02/18 ROSUVASTATIN CALCIUM 30883194396 Len Garcia MD RANITIDINE HCL 150 MG ORAL TABLET TAKE 1 TABLET BY MOUTH TWICE A DAY 02/21 RANITIDINE HCL 05624724799 Selene CRUZ MUPIROCIN 2 % OINT APPLY SMALL AMOUNT TO AREA TWICE A DAY 04/02 MUPIROCIN 85199695490 Selene CRUZ TYLENOL WITH CODEINE #3 TABLET TAKE 1 TO 2 TABLETS BY MOUTH EVERY 6 HOURS NEEDED 10/21 ACETAMINOPHEN-CODE INE TABS 29549944264 Selene CRUZ TYLENOL WITH CODEINE #3 TABLET TAKE 1 TO 2 TABLETS BY MOUTH EVERY 6 HOURS NEEDED 10/21 ACETAMINOPHEN-CODE INE TABS 76584131926 Len Garcia MD ONE TOUCH DELICA LANCETS TEST BLOOD SUGAR 2 TIMES A DAY 07/08 LANCETS 88177795872 Len Garcia MD TOPAMAX 100 MG TABS TAKE 1 TABLET BY MOUTH TWICE DAILY 08/14 TOPIRAMATE 90648746474 Len Garcia MD SPIRONOLACTONE 50 MG TABS TAKE ONE TABLET BY MOUTH EVERY DAY 08/14 SPIRONOLACTONE 87629290869 Len Garcia MD LISINOPRIL 2.5 MG TABS TAKE ONE TABLET BY MOUTH EVERY DAY 08/14 LISINOPRIL 23640004099 Len Garcia MD BUPROPION HCL ER (SR) 150 MG [id number] TAKE ONE TABLET BY MOUTH 2 TIMES A DAY 08/14 BUPROPION HCL 94265260375 Len Garcia MD PREMARIN 0.3 MG TABS TAKE ONE TABLET BY MOUTH EVERY DAY 07/16 ESTROGENS CONJUGATED 60653800908 Len Garcia MD NIACIN ER (ANTIHYPERLIPIDEMIC) 500 MG CR-TABS TAKE ONE TABLET BY MOUTH AT BEDTIME 08/07 NIACIN (ANTIHYPERLIPIDEMI C) 79492956563 Len Garcia MD EASY TOUCH PEN NEEDLES 31G X 8 MM USE DIRECTED 08/07 INSULIN PEN NEEDLE 39616826643 Len Garcia MD AZITHROMYCIN 250 MG TABS TAKE 2 TABLETS BY MOUTH DAY 1 THEN 1 TABLET EVERYDAY DAY 2 TO 5 07/08 AZITHROMYCIN 60481363147 Len Garcia MD FENOFIBRATE MICRONIZED 200 MG CAPS Take 1 pill daily 03/26 FENOFIBRATE MICRONIZED 32067128837 Len Garcia MD RANITIDINE HCL 150 MG ORAL TABLET TAKE 1 TABLET BY MOUTH EVERY 12 HOURS NEEDED 11/07 RANITIDINE HCL 65137252177 Len Garcia MD PROMETHAZINE HCL 25 MG TABS TAKE 1 TABLET BY MOUTH EVERY 6 HOURS NEEDED FOR NAUSEA 09/11 PROMETHAZINE HCL 41375867903 Len Garcia MD ASPIRIN 325 MG TABS TAKE 1 TABLET BY MOUTH 1 TIME A DAY 07/28 ASPIRIN 75922708311 Len Garcia MD PREMARIN 0.3 MG TABS Take 1 tablet by mouth once a day 09/01 ESTROGENS CONJUGATED 13938608358 Len Garcia MD RANITIDINE HCL 150 MG ORAL TABLET TAKE 1 TABLET BY MOUTH TWICE A DAY 02/21 RANITIDINE HCL 40360051184 Len Garcia MD FENOFIBRATE MICRONIZED 200 MG CAPS Take 1 pill daily 03/26 FENOFIBRATE MICRONIZED 42004856281 Len Garcia MD RANITIDINE HCL 150 MG ORAL TABLET TAKE 1 TABLET BY MOUTH EVERY 12 HOURS NEEDED 11/07 RANITIDINE HCL 46180116662 Len Garcia MD PROMETHAZINE HCL 25 MG TABS TAKE 1 TABLET BY MOUTH EVERY 6 HOURS NEEDED FOR NAUSEA 09/11 PROMETHAZINE HCL 64316543420 Len Garcia MD PREMARIN 0.3 MG TABS Take 1 tablet by mouth once a day 09/01 ESTROGENS CONJUGATED 70780711677 Len Garcia MD ASPIRIN 325 MG TABS TAKE 1 TABLET BY MOUTH 1 TIME A DAY 07/28 ASPIRIN 64575433399 Len Garcia MD DIAZEPAM 5 MG TABS Take 1 tab daily 12/06 DIAZEPAM 79196271912 Len Garcia MD FENOFIBRATE MICRONIZED 200 MG CAPS Take 1 pill daily 03/26 FENOFIBRATE MICRONIZED 64404100595 Len Garcia MD RANITIDINE HCL 150 MG ORAL TABLET TAKE 1 TABLET BY MOUTH TWICE A DAY 02/21 RANITIDINE HCL 23365426924 Len Garcia MD PROMETHAZINE HCL 25 MG TABS TAKE 1 TABLET BY MOUTH EVERY 6 HOURS NEEDED FOR NAUSEA 09/11 PROMETHAZINE HCL 94411226093 Len Garcia MD PREMARIN 0.3 MG TABS Take 1 tablet by mouth once a day 09/01 ESTROGENS CONJUGATED 01625329508 Len Garcia MD ASPIRIN 325 MG TABS TAKE 1 TABLET BY MOUTH 1 TIME A DAY 07/28 ASPIRIN 70905679143 Len Garcia MD LOTRIMIN AF 1 % CREA APPLY THIN FILM TO RASH TWICE A DAY FOR TWO WEEKS 04/15 CLOTRIMAZOLE 03510217182 Len Garcia MD FENOFIBRATE MICRONIZED 200 MG CAPS Take 1 pill daily 03/26 FENOFIBRATE MICRONIZED 04265870424 Len Garcia MD RANITIDINE HCL 150 MG ORAL TABLET TAKE 1 TABLET BY MOUTH EVERY 12 HOURS NEEDED 11/07 RANITIDINE HCL 90075464769 Len Garcia MD PROMETHAZINE HCL 25 MG TABS TAKE 1 TABLET BY MOUTH EVERY 6 HOURS NEEDED FOR NAUSEA 09/11 PROMETHAZINE HCL 64124554710 Len Garcia MD PREMARIN 0.3 MG TABS Take 1 tablet by mouth once a day 09/01 ESTROGENS CONJUGATED 40848525697 Len Garcia MD ASPIRIN 325 MG TABS TAKE 1 TABLET BY MOUTH 1 TIME A DAY 07/28 ASPIRIN 38960259339 Len Garcia MD MUPIROCIN 2 % OINT APPLY SMALL AMOUNT TO AREA TWICE A DAY 04/02 MUPIROCIN 18432514632 Len Garcia MD DIAZEPAM 5 MG TABS Take 1 tab daily 12/06 DIAZEPAM 07664584181 Len Garcia MD RANITIDINE HCL 150 MG ORAL TABLET TAKE 1 TABLET BY MOUTH TWICE A DAY 02/21 RANITIDINE HCL 91690981225 Len Garcia MD PROMETHAZINE HCL 25 MG TABS TAKE 1 TABLET BY MOUTH EVERY 6 HOURS NEEDED FOR NAUSEA 09/11 PROMETHAZINE HCL 46364372287 Len Garcia MD PREMARIN 0.3 MG TABS Take 1 tablet by mouth once a day 09/01 ESTROGENS CONJUGATED 86329976844 Len Garcia MD ASPIRIN 325 MG TABS TAKE 1 TABLET BY MOUTH 1 TIME A DAY 07/28 ASPIRIN 43610426063 Len Garcia MD BASAGLAR KWIKPEN 100 UNIT/ML SOPN 30 UNITS SUB CUT DAILY 07/24 INSULIN GLARGINE 45105604281 Len Garcia MD RANITIDINE HCL 150 MG ORAL TABLET TAKE 1 TABLET BY MOUTH EVERY 12 HOURS NEEDED 11/07 RANITIDINE HCL 92215628363 Len Garcia MD FENOFIBRATE MICRONIZED 200 MG CAPS Take 1 pill daily 03/26 FENOFIBRATE MICRONIZED 28850482904 Len Garcia MD DIAZEPAM 5 MG TABS Take 1 tab daily 12/06 DIAZEPAM 39310107686 Len Garcia MD SPIRONOLACTONE 50 MG TABS TAKE 1 TABLET BY MOUTH 1 TIME A DAY 12/06 SPIRONOLACTONE 28361448522 Len Garcia MD LISINOPRIL 2.5 MG TABS TAKE 1 TABLET BY MOUTH 1 TIME A DAY 01/25 LISINOPRIL 08851841526 Len Garcia MD RANITIDINE HCL 150 MG ORAL TABLET TAKE 1 TABLET BY MOUTH TWICE A DAY 02/21 RANITIDINE HCL 84994743656 Len Garcia MD PROMETHAZINE HCL 25 MG TABS TAKE 1 TABLET BY MOUTH EVERY 6 HOURS NEEDED FOR NAUSEA 09/11 PROMETHAZINE HCL 57562882489 Len Garcia MD PREMARIN 0.3 MG TABS Take 1 tablet by mouth once a day 09/01 ESTROGENS CONJUGATED 22720583558 Len Garcia MD ASPIRIN 325 MG TABS TAKE 1 TABLET BY MOUTH 1 TIME A DAY 07/28 ASPIRIN 90496564284 Len Garcia MD AMOXICILLIN 875 MG TABS TAKE 1 TABLET BY MOUTH 2 TIMES A DAY 11/07 AMOXICILLIN 87936200463 Len Garcia MD DIFLUCAN 150 MG TABS TAKE ONE TABLET BY MOUTH DAILY FOR 4 DAYS 11/02 FLUCONAZOLE 33025177236 Len Garcia MD RANITIDINE HCL 150 MG ORAL TABLET TAKE 1 TABLET BY MOUTH EVERY 12 HOURS NEEDED 11/07 RANITIDINE HCL 50138783923 Len Garcia MD OMEPRAZOLE 20 MG CPDR TAKE 2 CAPSULE BY MOUTH ONCE A DAY 09/24 OMEPRAZOLE 32719446613 Len Garcia MD OMEPRAZOLE 20 MG CPDR TAKE 2 CAPSULE BY MOUTH ONCE A DAY 09/24 OMEPRAZOLE 38185667667 Len Garcia MD ZANAFLEX 4 MG TABS TAKE 1 TABLET BY MOUTH TWICE A DAY NEEDED FOR PAIN 07/28 TIZANIDINE HCL 94716044299 Len Garcia MD DIAZEPAM 5 MG TABS Take 1 tab daily 12/06 DIAZEPAM 80032948700 Len Garcia MD PROMETHAZINE HCL 25 MG TABS TAKE 1 TABLET BY MOUTH EVERY 6 HOURS NEEDED FOR NAUSEA 09/11 PROMETHAZINE HCL 99399481789 Len Garcia MD PREMARIN 0.3 MG TABS Take 1 tablet by mouth once a day 09/01 ESTROGENS CONJUGATED 13427639392 Len Garcia MD ASPIRIN 325 MG TABS TAKE 1 TABLET BY MOUTH 1 TIME A DAY 07/28 ASPIRIN 70266656052 Len Garcia MD CIPROFLOXACIN HCL 250 MG TABS one tablet by mouth twice a day for 3 days 07/31 CIPROFLOXACIN HCL 41096390289 Len Garcia MD RANITIDINE HCL 150 MG ORAL TABLET TAKE 1 TABLET BY MOUTH TWICE A DAY 02/21 RANITIDINE HCL 66143417539 Len Garcia MD PROMETHAZINE HCL 25 MG TABS TAKE 1 TABLET BY MOUTH EVERY 6 HOURS NEEDED FOR NAUSEA 09/11 PROMETHAZINE HCL 13264089902 Len Garcia MD PREMARIN 0.3 MG TABS Take 1 tablet by mouth once a day 09/01 ESTROGENS CONJUGATED 95844814034 Len Garcia MD ASPIRIN 325 MG TABS TAKE 1 TABLET BY MOUTH 1 TIME A DAY 07/28 ASPIRIN 78828832905 Len Garcia MD DIAZEPAM 5 MG TABS Take 1 tab daily 12/06 DIAZEPAM 79672524536 Len Garcia MD ONETOUCH ULTRA BLUE IN VITRO STRIP CHECK BLOOD SUGAR ONCE DAILY IN THE MORNING FASTING 07/25 GLUCOSE BLOOD 76982815687 Len Garcia MD PROMETHAZINE HCL 25 MG TABS TAKE 1 TABLET BY MOUTH EVERY 6 HOURS NEEDED FOR NAUSEA 09/11 PROMETHAZINE HCL [id number] Len Garcia MD PREMARIN 0.3 MG TABS Take 1 tablet by mouth once a day 09/01 ESTROGENS CONJUGATED 90143731797 Len Garcia MD ASPIRIN 325 MG TABS TAKE 1 TABLET BY MOUTH 1 TIME A DAY 07/28 ASPIRIN 37392881742 Len IRBYTOUCH ULTRASOFT LANCETS CHECK BLOOD SUGAR TWICE DAILY DUE TO UNCONTROLLED BLOOD SUGAR 08/22 LANCETS 88189582649 Len Garcia MD PROMETHAZINE HCL 25 MG TABS TAKE 1 TABLET BY MOUTH EVERY 6 HOURS NEEDED FOR NAUSEA 09/11 PROMETHAZINE HCL [id number] Len Garcia MD PREMARIN 0.3 MG TABS Take 1 tablet by mouth once a day 09/01 ESTROGENS CONJUGATED 20720240543 Len Garcia MD ASPIRIN 325 MG TABS TAKE 1 TABLET BY MOUTH 1 TIME A DAY 07/28 ASPIRIN 01991111185 Len Garcia MD EASY TOUCH INSULIN SYRINGE 27G X 1/2 0.5 ML USE DIRECTED WITH INSULIN 08/11 INSULIN SYRINGE-NEEDLE U-100 30276405073 Len Garcia MD PROMETHAZINE HCL 25 MG TABS TAKE 1 TABLET BY MOUTH EVERY 6 HOURS NEEDED FOR NAUSEA 09/11 PROMETHAZINE HCL [id number] Len Garcia MD PREMARIN 0.3 MG TABS Take 1 tablet by mouth once a day 09/01 ESTROGENS CONJUGATED 57856134160 Len Garcia MD ZANAFLEX 4 MG TABS TAKE 1 TABLET BY MOUTH TWICE A DAY NEEDED FOR PAIN 07/28 TIZANIDINE HCL 81364382310 Len Garcia MD ASPIRIN 325 MG TABS TAKE 1 TABLET BY MOUTH 1 TIME A DAY 07/28 ASPIRIN 36962308826 Len Garcia MD NIACIN ER (ANTIHYPERLIPIDEMIC) 500 MG CR-TABS take one tablet by mouth at bedtime 07/28 NIACIN (ANTIHYPERLIPIDEMI C) 37677808867 Len Garcia MD DIAZEPAM 5 MG TABS Take 1 tab daily 12/06 DIAZEPAM 28207239451 Len Garcia MD SPIRONOLACTONE 50 MG TABS TAKE 1 TABLET BY MOUTH 1 TIME A DAY 12/06 SPIRONOLACTONE 70741152706 Len Garcia MD LISINOPRIL 2.5 MG TABS TAKE 1 TABLET BY MOUTH 1 TIME A DAY 01/25 LISINOPRIL [id number] Len Garcia MD PROMETHAZINE HCL 25 MG TABS TAKE 1 TABLET BY MOUTH EVERY 6 HOURS NEEDED FOR NAUSEA 09/11 PROMETHAZINE HCL 77675886166 Len Garcia MD PREMARIN 0.3 MG TABS Take 1 tablet by mouth once a day 09/01 ESTROGENS CONJUGATED 83525241201 Len Garcia MD BUPROPION HCL ER (SR) 150 MG [id number] 1 BY MOUTH 2 TIMES A DAY 03/29 BUPROPION HCL 60893129406 Len Garcia MD FENOFIBRATE MICRONIZED 200 MG CAPS Take 1 pill daily 03/26 FENOFIBRATE MICRONIZED 83938085744 Len Garcia MD PROMETHAZINE HCL 25 MG TABS TAKE 1 TABLET BY MOUTH EVERY 6 HOURS NEEDED FOR NAUSEA 09/11 PROMETHAZINE HCL 31177359074 Len Garcia MD PREMARIN 0.3 MG TABS Take 1 tablet by mouth once a day 09/01 ESTROGENS CONJUGATED 59165427298 Len Garcia MD KLS OMEPRAZOLE 20 MG TBEC take one by mouth twice a day 02/21 OMEPRAZOLE 93166249432 Len Garcia MD CEPHALEXIN 500 MG CAPS TAKE 1 CAPSULE BY MOUTH 3 TIMES A DAY FOR 7 DAYS 01/25 CEPHALEXIN [id number] Len Garcia MD SPIRONOLACTONE 50 MG TABS TAKE 1 TABLET BY MOUTH 1 TIME A DAY 12/06 SPIRONOLACTONE 57680916452 Len Garcia MD PROMETHAZINE HCL 25 MG TABS TAKE 1 TABLET BY MOUTH EVERY 6 HOURS NEEDED FOR NAUSEA 09/11 PROMETHAZINE HCL [id number] Len Garcia MD PREMARIN 0.3 MG TABS Take 1 tablet by mouth once a day 09/01 ESTROGENS CONJUGATED [id number] Len Garcia MD GABAPENTIN 100 MG CAPS TAKE 1 CAPSULE BY MOUTH 3 TIMES A DAY 01/25 GABAPENTIN 87682338858 Len Garcia MD TOPAMAX 100 MG TABS TAKE 1 TABLET TWICE DAILY 01/25 TOPIRAMATE 27090665846 Len Garcia MD HYDROCHLOROTHIAZIDE 25 MG TABS Take one by mouth daily 01/15 HYDROCHLOROTHIAZID E 02473841321 Len Garcia MD CEFDINIR 250 MG/5ML SUSR one teaspoon by mouth twice a day for 10 days 07/21 CEFDINIR 27223683817 Len Garcia MD LEVOFLOXACIN 500 MG TABS TAKE ONE TABLET BY MOUTH EACH DAY FOR 10 DAYS 07/27 LEVOFLOXACIN 74458590255 Len Garcia MD LISINOPRIL 2.5 MG TABS TAKE 1 TABLET BY MOUTH 1 TIME A DAY 01/25 LISINOPRIL 97433036321 Len Garcia MD HYDROCHLOROTHIAZIDE 25 MG TABS Take one by mouth daily 01/15 HYDROCHLOROTHIAZID E 03467112575 Len Garcia MD PROMETHAZINE HCL 25 MG TABS TAKE 1 TABLET BY MOUTH EVERY 6 HOURS NEEDED FOR NAUSEA 09/11 PROMETHAZINE HCL 89214587860 Len Garcia MD PREMARIN 0.3 MG TABS Take 1 tablet by mouth once a day 09/01 ESTROGENS CONJUGATED 85029245129 Len Garcia MD CEFDINIR 250 MG/5ML SUSR one teaspoon by mouth twice a day for 10 days 07/21 CEFDINIR 70671194912 Len Garcia MD DIAZEPAM 5 MG TABS Take 1 tab daily 12/06 DIAZEPAM [id number] Len Garcia MD PROMETHAZINE HCL 25 MG TABS TAKE 1 TABLET BY MOUTH EVERY 6 HOURS NEEDED FOR NAUSEA 09/11 PROMETHAZINE HCL 63319105969 Len Garcia MD PREMARIN 0.3 MG TABS Take 1 tablet by mouth once a day 09/01 ESTROGENS CONJUGATED [id number] Len Garcia MD CEFDINIR 250 MG/5ML SUSR one teaspoon by mouth twice a day for 10 days 07/21 CEFDINIR [id number] Len Garcia MD DIAZEPAM 5 MG TABS Take 1 tab daily 12/06 DIAZEPAM 29139130677 Len Garcia MD PROMETHAZINE HCL 25 MG TABS TAKE 1 TABLET BY MOUTH EVERY 6 HOURS NEEDED FOR NAUSEA 09/11 PROMETHAZINE HCL 91280565501 Len Garcia MD PREMARIN 0.3 MG TABS Take 1 tablet by mouth once a day 09/01 ESTROGENS CONJUGATED 90689927295 Len Garcia MD CEFDINIR 250 MG/5ML SUSR one teaspoon by mouth twice a day for 10 days 07/21 CEFDINIR 51481364000 Len Garcia MD DIAZEPAM 5 MG TABS Take 1 tab daily 12/06 DIAZEPAM 19548922706 Len Garcia MD SPIRONOLACTONE 50 MG TABS TAKE 1 TABLET BY MOUTH 1 TIME A DAY 12/06 SPIRONOLACTONE 92150585473 Len Garcia MD LEVOFLOXACIN 500 MG TABS TAKE ONE TABLET BY MOUTH EACH DAY FOR 10 DAYS 07/27 LEVOFLOXACIN 88814507375 Len Garcia MD PROMETHAZINE HCL 25 MG TABS TAKE 1 TABLET BY MOUTH EVERY 6 HOURS NEEDED FOR NAUSEA 09/11 PROMETHAZINE HCL 81848916119 Len Garcia MD PREMARIN 0.3 MG TABS Take 1 tablet by mouth once a day 09/01 ESTROGENS CONJUGATED 44932883784 Len Garcia MD CEFDINIR 250 MG/5ML SUSR one teaspoon by mouth twice a day for 10 days 07/21 CEFDINIR 93747567939 Len Garcia MD DIFLUCAN 150 MG TABS TAKE ONE TABLET BY MOUTH DAILY FOR 4 DAYS 11/02 FLUCONAZOLE 41132421012 Len Garcia MD PROMETHAZINE HCL 25 MG TABS TAKE 1 TABLET BY MOUTH EVERY 6 HOURS NEEDED FOR NAUSEA 09/11 PROMETHAZINE HCL 32607596696 Len Garcia MD PROMETHAZINE HCL 25 MG TABS 1 BY MOUTH EVERY 6 HRS NEEDED 09/11 PROMETHAZINE HCL 69708343798 Len Garcia MD PREMARIN 0.3 MG TABS Take 1 tablet by mouth once a day 09/01 ESTROGENS CONJUGATED 44951935180 Len Garcia MD CEFDINIR 250 MG/5ML SUSR one teaspoon by mouth twice a day for 10 days 07/21 CEFDINIR 01265147772 Len Garcia MD LOTRIMIN AF 1 % CREA APPLY THIN FILM TO RASH TWICE A DAY FOR TWO WEEKS 09/17 CLOTRIMAZOLE 96685620934 Len Garcia MD PREMARIN 0.3 MG TABS Take 1 tablet by mouth once a day 09/01 ESTROGENS CONJUGATED 37122605545 Len Garcia MD CEFDINIR 250 MG/5ML SUSR one teaspoon by mouth twice a day for 10 days 07/21 CEFDINIR 70264550658 Len Garcia MD PROMETHAZINE HCL 25 MG TABS 1 BY MOUTH EVERY 6 HRS NEEDED 09/11 PROMETHAZINE HCL 61422353374 Len Garcia MD METOPROLOL TARTRATE 25 MG TABS TAKE 1 TABLET BY MOUTH 2 TIMES A DAY 09/01 METOPROLOL TARTRATE 78864297724 Len Garcia MD CEFDINIR 250 MG/5ML SUSR one teaspoon by mouth twice a day for 10 days 07/21 CEFDINIR 11273169780 Xuan Jaime RN PREMARIN 0.3 MG TABS Take 1 tablet by mouth once a day 09/01 ESTROGENS CONJUGATED 97020694440 Len Garcia MD LEVOFLOXACIN 500 MG TABS TAKE ONE TABLET BY MOUTH EACH DAY FOR 10 DAYS 07/27 LEVOFLOXACIN 64409508899 Len Garcia MD HUMALOG 100 UNIT/ML SUBCUTANEOUS SOLUTION INJECT 20 UNITS SUBCUTANEOUSLY AT BREAKFAST, 20 UNITS AT LUNCH, AND 25 UNITIS AT SUPPER 07/24 INSULIN LISPRO (HUMAN) 11911824972 Len Garcia MD VENTOLIN HFA 108 (90 Base) MCG/ACT AERS INHALE 2 PUFFS BY MOUTH FOUR TIMES A DAY. 07/24 ALBUTEROL SULFATE 62231177543 Len Garcia MD LANTUS 100 UNIT/ML SOLN INJECT 15 UNITS EACH MORNING AND 15 UNITS AT BEDTIME 07/24 INSULIN GLARGINE 02031893019 Len Garcia MD HUMALOG 100 UNIT/ML SUBCUTANEOUS SOLUTION INJECT 20 UNITS SUBCUTANEOUSLY AT SUPPER 07/24 INSULIN LISPRO (HUMAN) 92399041559 Diamante Ayala TIZANIDINE HCL 4 MG TABS TAKE 1 AND 1/2 TABLET BY MOUTH THREE TIMES A DAY 07/24 TIZANIDINE HCL 76147026518 Len Garcia MD BUPROPION HCL ER (SR) 150 MG [id number] TAKE 1 TABLET BY MOUTH TWO TIMES A DAY 07/24 BUPROPION HCL [id number] Len Garcia MD METOPROLOL TARTRATE 25 MG TABS TAKE 1 TABLET BY MOUTH TWO TIMES A DAY 07/24 METOPROLOL TARTRATE [id number] Len Garcia MD HYDROCHLOROTHIAZIDE 25 MG TABS TAKE 1 TABLET BY MOUTH EVERY DAY 07/24 HYDROCHLOROTHIAZID E [id number] Len Garcia MD SPIRONOLACTONE 50 MG TABS Take 1 tablet by mouth every day 07/24 SPIRONOLACTONE [id number] Len Garcia MD CEFDINIR 250 MG/5ML SUSR one teaspoon by mouth twice a day for 10 days 07/21 CEFDINIR 27019463974 Len Garcia MD TOPAMAX 100 MG TABS Take 1 tablet twice daily 07/21 TOPIRAMATE 43207281708 Len Garcia MD PRILOSEC OTC 20 MG TBEC Take 1 tablet once a day 07/21 OMEPRAZOLE MAGNESIUM [id number] Len Garcia MD GABAPENTIN 100 MG CAPS Take 1 capsule three times a day 07/21 GABAPENTIN [id number] Len Garcia MD FENOFIBRATE MICRONIZED 200 MG CAPS Take 1 capsule by mouth every day 07/21 FENOFIBRATE MICRONIZED 52678811699 Len Garcia MD PREMARIN 0.3 MG TABS Take one tablet by mouth every day 07/21 ESTROGENS CONJUGATED [id number] Len Garcia MD LISINOPRIL 2.5 MG TABS Take 1 tablet by mouth every day 07/21 LISINOPRIL 47242983239 Len Garcia MD Medications Administered No information available. Allergies, Adverse Reactions, Alerts Allergy Name Reaction Description Start Date Severity Statu s Provider SPENCER Rash Critical Active Len giles MD AXID Rash Critical Active Len giles MD COMPAZINE Rash Critical Active Len giles MD REGLAN Rash Critical Active Len giles MD TRAMADOL Rash Critical Active Len giles MD TORADOL Rash Critical Active Len giles MD DARVOCET Rash Critical Active Len giles MD ADVIL Rash Critical Active Len giles MD AUGMENTIN Rash Critical Active Len giles MD SULFA Rash Critical Active Len giles MD Results Date Name Value Unit Range Flag Description Office Visit: mediocation f/ u. Medication refill. Rm 8 LDL GOAL <100 mg/dL LDL target l tre Lab Report: Auto Diff, CBC, CMP GFR 40 mL/min Glomerular filtration rate/1.73 sq M.predicted among non-blacks [Volume Rate/Area] in Serum, Plasma or Blood by Creatinine-based formula (MDRD) GFRAA 48 mL/min GFR Afr Am CREATINE SER 1.38 mg/dL 0.51-1.30 H Creati nine BG RANDOM 63 mg/dL 74-100 L Glucose [Mass/volume] in Blood CO2 PLSM/SER 20 MMOL/L 22-29 L Total CO 2 PLATELETS 247 X10(3)/MCL 10*3/mm3 130-400 Platelets [#/vol ume] in Blood by Automated count RBC 4.22 X10(6)/MCL 10*6/mm3 4.20-5.40 Erythrocytes [#/volume] in Blood by Automated count WBC COUNT 10.6 X10(3)/MCL 10*3/uL 4.8-10.8 WBC BASOPH COUNT 0.1 X10(3)/MCL 10*3/mm3 0.0-0.1 Basophils [#/vol ume] in Blood by Manual count EOS COUNT 0.3 X10(3)/MCL 10*3/mm3 0.0-0.2 H Eos# MONOSCT AUTO 0.8 X10(3)/MCL 10*3/uL 0.3-0.8 Monocytes [#/vol ume] in Blood by Automated count LYMPHCT AUTO 4.3 X10(3)/MCL 10*3/mm3 1.3-2.9 H Lymph# ANC 5.1 X10(3)/MCL 10*3/mm3 2.2-4.8 H Neut# BASOPHIL % 0.9 % Baso Perce nt % EOS AUTO 2.7 % Eosinophil s/100 leukocytes in Blood by Automated count MONOCYTE % 7.5 % Monocytes/ 100 leukocytes in Blood by Automated count LYMPH% P BLD 40.9 % Lymph Pe rcent PMN % 48.0 % Neut Percent Lab Report: Glyco, LDL, Lipi d Refx HDLPLASMA 23 mg/dL >=40 L Cholesterol in HDL [Mass/volume] in Serum or Plasma - mg/dL TRIGLYCRDES 363 mg/dL <=150 H Triglycer nena [Mass/volume] in Serum or Plasma - mg/dL LDL/CHL MOHAN 100 mg/dL <=100 LDL Calcu lated Office Visit: Heartburn itch ing and burning with urination Room 6 Ready PH URINE 5.5 pH of Urine by Test strip SPEC GR URIN 1.030 Specific gravity of Urine by Test strip GLUCOSE, URN negative Glucose [Mass/volume] in Urine by Test strip BILIRUBIN UR negative Bilirub in.total [Presence] in Urine by Test strip KETONES URN negative Ketones [Mass/volume] in Urine by Test strip BLOOD UR DIP negative blood i n urine (hemoglobin) by dipstick PROTEIN, URN trace protein, urine, semiquantitative (dipstick) UROBILINOGEN 0.2 Urobilin ogen [Presence] in Urine by Test strip NITRITE URN negative Nitrite [Presence] in Urine by Test strip WBC DIPSTK U negative Leukocy te esterase [Presence] in Urine by Test strip Lab Report: LIPID PANEL WITH REFLEX TO DIRECT LDL, LIPID PANEL WITH REFL ... HGBA1C 6.7 % OF TOTAL HGB % less than H Hemoglobin A1c/Hemoglobin, total in Blood - % MPV 10.5 fL 7.5-12.5 N Platelet saritha n volume [Entitic volume] in Blood by Lisa PLATELETK/UL 276 THOUSAND/UL 10*3/uL 140-400 N platelet count RDW 15.2 % 11.0-15.0 H Erythrocyte distribution width [Ratio] by Automated count OL-MCHC 33.5 g/dL 32.0-36.0 N mean corpus cular hemoglobin concentration, rbc MCH 29.7 pg 27.0-33.0 N MCH [Entiti c mass] by Automated count MCV 88.5 fL 80.0-100.0 N MCV [Entit ic volume] by Automated count HCT 35.5 % 35.0-45.0 N Hematocrit [Volume Fraction] of Blood by Automated count HGB 11.9 g/dL 11.7-15.5 N Hemoglobin [Mass/volume] in Blood RBC M/UL 4.01 MILLION/UL 10*6/uL 3.80-5.10 N red blood count WBC CT BLOOD 6.3 10*3/uL 3.8-10.8 N leukocy te count, blood SGPT (ALT) 11 U/L 6-29 N Alanine aminotransferase [Enzymatic activity/volume] in Serum or Plasma SGOT (AST) 15 U/L 10-35 N Aspartate aminotransferase [Enzymatic activity/volume] in Serum or Plasma ALK PHOS 42 U/L 33-130 N Alkaline dorothy sphatase [Enzymatic activity/volume] in Blood BILI TOTAL 0.4 mg/dL 0.2-1.2 N Bilirubin. total [Mass/volume] in Serum or Plasma A/G RATIO 1.5 (calc) 1.0-2.5 N Albumin/ Globulin [Mass Ratio] in Serum or Plasma GLOBULIN TOT 3.0 G/DL (CALC) g/dL 1.9-3.7 N Globulin [Mass/volume] in Serum ALBUMIN EOP 4.6 g/dL 3.6-5.1 N Albumin [Mass/volume] in Serum or Plasma by Electrophoresis PROTEIN, TOT 7.6 g/dL 6.1-8.1 N Protein [Mass/volume] in Serum or Plasma NON-HDL CHOL 194 MG/DL (CALC) mg/dL less than H cholesterol, non-HDL, total CHOL/HDL % 9.4 (calc) less than H kelsi sterol/HDL ratio, serum, percent LDL 146 MG/DL (CALC) mg/dL H Cholesterol in L DL [Mass/volume] in Serum or Plasma - mg/dL TRIGLYC TOT 312 mg/dL less than H Triglyc eride [Mass/volume] in Serum or Plasma - mg/dL HDL 23 mg/dL greater th L Cholestero l in HDL [Mass/volume] in Serum or Plasma - mg/dL CHOLESTEROL 217 mg/dL less than H Cholest merrill [Mass/volume] in Serum or Plasma - mg/dL Lab Report: URIC ACID, BASIC METABOLIC PANEL CALCIUM 9.5 mg/dL 8.6-10.4 N Calcium [Moles/volume] in Serum or Plasma CO2 26 mmol/L 20-32 N Carbon dioxid e, total [Moles/volume] in Venous blood CHLORIDE BLD 106 mmol/L 98-110 N chloride , blood POTASSIUM 3.8 mmol/L 3.5-5.3 N Potassium [Moles/volume] in Serum or Plasma SODIUM 138 mmol/L 135-146 N Sodium [Moles/volume] in Serum or Plasma BUN/CREAT 18 (calc) 6-22 N Urea nitrogen/Creatinine [Mass Ratio] in Serum or Plasma EGFR IF AFA 55 mL/min/1 .73m2 >OR = 60 L Glomerular filtration rate/1.73 sq M.predicted among blacks [Volume Rate/Area] in Serum, Plasma or Blood by Creatinine-based formula (MDRD) EGFR 47 mL/min/1 .73m2 >OR = 60 L Glomerular filtration rate/1.73 sq M.predicted [Volume Rate/Area] in Serum, Plasma or Blood by Creatinine-based formula (MDRD) CREATININE 1.25 mg/dL 0.50-1.05 H Creatini ne [Mass/volume] in Serum or Plasma BUN 22 mg/dL 7-25 N Urea nitrogen [Mass/volume] in Serum or Plasma GLUCOSE SER 98 mg/dL 65-99 N Glucose [Mass/volume] in Serum or Plasma URIC ACID 8.9 mg/dL 2.5-7.0 H Urate [Mass /volume] in Serum or Plasma Plan of Care Type Date Detail Referral Other Referral Other Referral excluded [facility] report: Referral ENT Janes Silva MD ENT Specialist Janes Silva, [address], [place], [address] Referral Hospital Bed Equipment [facility], [address], [place], [address] Referral Surgery Tha orta MD [facility] Surgical [facility] Surgical [facility], [address] [place], [address] Referral Other Referral Pain Mgt Alexander Michel [facility] Pain Alexander Michel, [address], [place], [address] Referral Other Pending order T1 BMP Pending order T1 Uric Acid Pending order T1 Uric Acid Pending Order exclud ed from report: Pending order T1 BMP Pending Order exclud ed from report: Pending order T1 CBC no diff Pending order T1 CMP Pending order T1 HGBA1c Pending order T1 Lipid Panel Pending order X-Ray Shoulder L eft Pending order CBC no diff Pending order CMP Pending order HGBA1c Pending order Urine Dip Auto 8 1003 Pending order CBC with diff Pending order CMP Pending order Lipid Panel Pending order HGBA1c Pending order CBC no diff Pending order BMP Pending order Medication Recon ciliation Pending order MRI Spine Lumbar w-out contrast Pending order Medication Recon ciliation Pending order X-Ray Cervical S pine Pending order X-Ray Lumbar Spi ne Pending order CBC no diff Pending order Lipase Pending order CMP Pending order HGBA1c Pending order Medication Recon ciliation Patient education Patient Educat ion Given Patient education Patient Educat ion Given Patient education Patient Educat ion Given Patient education Patient Educat ion Given Patient education Patient Educat ion Given Patient education Patient Educat ion Given Patient education Patient Educat ion Given Patient education Patient Educat ion Given Patient education Patient Educat ion Given Patient education Patient Educat ion Given Patient education Patient Educat ion Given Patient education Patient Educat ion Given Patient education Patient Educat ion Given Patient education Patient Educat ion Given Patient education Patient Educat ion Given Patient education Patient Educat ion Given Patient education Patient Educat ion Given Patient education Patient Educat ion Given Patient education Patient Educat ion Given Procedures Code Procedure Name Date Entry Date CPT-3077F Most recent systolic blood pressure >=140 mm Hg CPT-3079F Most recent diastolic blood pressure 80-8 9 mm Hg Other Other [facility] 905 T1 Uric Acid [facility] 24500 T1 BMP CPT-3077F Most recent systolic blood pressure >=140 mm Hg CPT-3079F Most recent diastoli c blood pressure 80-89 mm Hg [id number] Medication Reconciliation CPT-3075F Most recent systolic blood pressure 130-139 mm Hg CPT-3079F Most recent diastoli c blood pressure 80-89 mm Hg SCT-[id number] Medication Reconciliation CPT-3075F Most recent systolic blood pressure 130-139 mm Hg CPT-3079F Most recent diastoli c blood pressure 80-89 mm Hg [facility] 1759 T1 CBC no diff [facility] 52310 T1 CMP [facility] 496 T1 HGBA1c [facility] 25906 T1 Lipid Panel [id number] Medication Reconciliation CPT-3074F Most recent systolic blood pressure <130 mm Hg CPT-3078F Most recent diastoli c blood pressure <80 mm Hg X-Ray Shoulder Left X-Ray Shoulder Left 2 CPT-3074F Most recent systolic blood pressure <130 mm Hg CPT-3078F Most recent diastoli c blood pressure <80 mm Hg SCT-[id number] Medication Reconciliation CPT-3074F Most recent systolic blood pressure <130 mm Hg CPT-3079F Most recent diastoli c blood pressure 80-89 mm Hg SCT-[id number] Medication Reconciliation CPT-3074F Most recent systolic blood pressure <130 mm Hg CPT-3079F Most recent diastoli c blood pressure 80-89 mm Hg SCT-[id number] Medication Reconciliation SCT-[id number] Medication Reconciliation Podiatry Podiatry Referral Dr Darius Enriquez 01/15 GEN SX GEN General Surgery Referral General CPT-3074F Most recent systolic blood pressure <130 mm Hg CPT-3078F Most recent diastoli c blood pressure <80 mm Hg SCT-[id number] Medication Reconciliation CPT-3074F Most recent systolic blood pressure <130 mm Hg CPT-3078F Most recent diastoli c blood pressure <80 mm Hg CPT-3074F Most recent systolic blood pressure <130 mm Hg CPT-3078F Most recent diastoli c blood pressure <80 mm Hg SCT-[id number] Medication Reconciliation SCT-[id number] Medication Reconciliation CPT-3008F BMI assessed/documented 2016 CPT-3074F Most recent systolic blood pressure <130 mm Hg CPT-3078F Most recent diastoli c blood pressure <80 mm Hg [facility]# 1759 [place] [address] Quest Test # CMP 2 496 [facility] Test # HGBA1c ENT ENT Janes Silva MD ENT Specialist 08/28 SCT-[id number] Medication Reconciliation CPT-30703 Urine Dip Auto 43853 SCT-[id number] Medication Reconciliation 496 [facility] Test # HGBA1c 77279 [facility] Test # Lipid Panel 0 75448 [facility] Test # CMP 0 6399 [facility] Test # CBC with diff 0 SCT-[id number] Medication Reconciliation [id number] Giving encouragement to exercise SCT-[id number] Medication Reconciliation Hospital Bed Hospital Bed SCT-[id number] Medication Reconciliation SCT-[id number] Medication Reconciliation SCT-[id number] Medication Reconciliation Surgery Surgery Tha leija MD [facility] [address] [facility] Test # BMP 3 [facility]# 1759 CBC no diff SCT-[id number] Medication Reconciliation SCT-[id number] Medication Reconciliation SCT-[id number] Medication Reconciliation Other Other SCT-[id number] Medication Reconciliation mri lumbar w-o edg MRI Spine Lumbar w-out contrast 201 12/07/13 Pain Mgt Pain Mgt Alexander Emily jimenez [facility] Pain Other Other SCT-[id number] Medication Reconciliation X-Ray Cervical Spine X-Ray Cervical Spine X-Ray Lumbar Spine X-Ray Lumbar Spine 201 12/08/07 496 [facility] Test # HGBA1c 73998 [facility] Test # CMP 5 606 [facility] Test # Lipase [facility]# 1759 CBC no diff SCT-[id number] Medication Reconciliation Vital Signs Date Name Value Unit Description BMI (Body Mass Index) 30.97 kg/m2 Bod y Mass Index (Ratio) Body Temperature 98.1 [degF] temperat ure E&M Body Temperature 36.72 Zari temperat ure in centigrade E&M BP Diastolic 85 mm[Hg] blood pressu re, diastolic BP Systolic 152 mm[Hg] blood pressur e, systolic BSA (Body Surface Area) 1.74 b lisa surface area Heart Rate 78 /min pulse rate Height 60 [in_us] height E&M Height 152.4 cm height in cent imeters E&M Respiratory Rate 18 /min respirat ory rate E&M Weight Measured 71.82 kg weight in kilograms E&M Weight Measured 158 [lb_av] weight E& M Weight Measured 158 [lb_av] weight E& M Immunizations No information available. Advance Directives Directive Description Start Date DISCUSSED - NO DECISION MADE
--- OUTSIDE RECORDS SUMMARY | 2025-02-11 01:39 | XMS_ITS | Clinical Summary ---
Author Organization Healthcare Address [address] [id number] Care Team Providers Care Sloop Captain Name Role Phone Lupillo Garcia MD Primary Care Provider [phone] Family History 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 Relation Name Comments [...] 69 05/04/2019 9:40 AM EDT Temperature 36.4 C (97.5 F) 09/25/2017 2:52 PM EDT Respiratory Rate - - Oxygen Saturation - [...] SDOH Screenings 1978 [facility]-Adult SDOH Screenings 1978 [facility]-Pap Smear 1981 [facility]-Cervical Cancer Screening 1990 [facility]-HPV/Cotest 1990 CT Colonography 2005 Colonoscopy 2005 FIT-DNA 2005 FIT 2005 FOBT 2005 Sigmoidoscopy 2005 [facility]-Colorectal Cancer Screening 2005 [facility]-Pneumococcal Vaccine: 50 + Years (1 of 1 - PCV) 2010 [facility]-Zoster Vaccines (1 of 2) 2010 [facility]-DTaP,Tdap,and Td Vaccine s (1 - Tdap) 02/01/2021 01/31/2021 [id number] Vaccine (1 - 2023- season) 2024 [facility]-Influenza Vaccine (#1) 2025 [facility]-RSV Vaccine: 60+ Years o r (1 - 1-dose 75+ series) 2035 [facility]-Breast Cancer Screening Discontinued 09/2023, 12/08/2023 HPV Vaccines Aged Out No longer eligi ble based on patient's age to complete this topic [facility]-HIB Vaccines Aged Out No longer e [...] this topic Insurance [employer] Care Teams Sloop Captain Relationship Specialty Start Date End Date Lupillo Garcia MD [address] [place] [address] PCP - General 11/17/20
--- OUTSIDE RECORDS SUMMARY | 2025-02-11 01:39 | XMS_ITS | Encounter Summary ---
Author Organization Healthcare Address [address] [place] [address] Care Team Providers Care Printed Circuit Board Panels Plater Name Role Phone Lupillo Garcia MD Primary Care Provider [phone] Encounter Details Date Type Department Care Team (Late st Contact Info) Description 01/22/2024 Lab Requisition [facility] [address] [place] [address] Darius Enriquez DPM [address] [place] [address] Other hammer toe(s) (acquired), right foot Social [...] Pathology Exam (01/22/2024) Case Report Surgical Pathology Case: [id number] Authorizing Provider: Darius Enriquez DPM Collected: 01/22/2024 Ordering Location: [facility] Received: 01/22/2024 1344 Pathologist: Jil Tong MD Specimen: Foot, Right, Head of Proximal Phalanx, Right 4th and 5th Toes 01/22/2024 3:46 PM EDT [facility] Final Diagnosis FRAGMENTS OF TOES, GROSS DIAGNOSIS ONLY (HISTORY OF HAMMER TOES). 01/22/2024 3:46 PM EDT [facility] at 1546 EDT Clinical Information Other hammer toe(s) (acquired), right foot Hammertoes right 4th and 5th toe 01/22/2024 3:46 PM EDT [facility] Gross Description A. HEAD OF PROXIMAL PHALANX, RIGHT 4TH AND 5TH TOES Received in formalin labeled f oot, right, head of proximal phalanx, right 4th and 5th toes , are 2 white/yellow fragments of bone measuring 1.1 x 0.6 x 0.3 cm in aggregate. The external surface is glistening and ragged. Specimen submitted for gross examination only. Devika Cavazos 01/22/2024 3:46 PM EDT [facility] Note: A resident was involved in the service. I attest I examined the relevant preparations for the specimens and confirmed the diagnosis or interpretation. 01/22/2024 3:46 PM EDT [facility] Tissue Structure of right foot / Unknown 01/22/2024 01/22/2024 1:44 PM EDT Darius Enriquez DPM LAB PATHOLOGY ORDERABLES Fin al Result Performing Organization Address City/State/[facility] Co de Phone Number [facility] [address] [place] [address] documented in this encounter Visit Diagnoses Diagnosis Other hammer toe(s) (acquired), right foot documented in this encounter Care Teams Printed Circuit Board Panels Plater Relationship Specialty Start Date End Date Lupillo Garcia MD [address] [place] [address] PCP - General 11/17/20 documented as of this encounter
--- OUTSIDE RECORDS SUMMARY | 2025-02-11 01:39 | XMS_ITS | Encounter Summary ---
Author Organization [facility] Address [address] [place] [address] Care Team Providers Care Wet Finisher Wool Name Role Phone Lupillo Garcia MD Primary Care Provider [phone] Encounter Details Date Type Department Care Team (Late st Contact Info) Description 02/25/2015 Orders Only External Location [address] [place] [address] Provider, External Social History Tobacco Use Types Packs/Day Years [...] Procedure Name Priority Date/Time Associated Diagnosis Comments CT OUTSIDE IMAGES 02/25/2015 4:51 PM EDT documented in this encounter Results * CT OUTSIDE IMAGES (02/25/2015 4:51 PM EDT) Anatomical Region Laterality Modality Computed Tomogra phy 02/25/2015 4:51 PM EDT us External Provider IMG CT PROCEDURES Final Result documented in this encounter Visit Diagnoses Not on filedocumented in this encounter Care Teams Wet Finisher Wool Relationship Specialty Start Date End Date Lupillo Garcia MD [address] [place] [address] PCP - General 11/17/20 documented as of this encounter
--- OUTSIDE RECORDS SUMMARY | 2025-02-11 01:39 | XMS_ITS | Clinical Summary ---
Author Organization [facility] Address [address] [place] [address] Phone Care Team Providers Care Company Controller Name Role Phone Arleth Khalil Unavailable Unavailable Conditions or Problems Problem Name Problem Code Onset Date Status Entry Date Provider Comment Standard Description Annotate NAUSEA 475451292 (SNOMED CT) 10/22 Active 10/22 Pastora Barahona Nausea FREQUENCY, URINARY 740631228 (SNOMED CT) 10/22 Active 10/22 Pastora Barahona Finding of frequency of urination DIABETES MELLITUS 63789325 (SNOMED CT) 10/22 Active 10/22 Pastora Barahona Diabetes mellitus NEUROGENIC BLADDER 159156346 (SNOMED CT) 09/06 Active 09/06 [facility] Neurogenic urinary bladder PARAPLEGIA 81964843 (SNOMED CT) 09/06 Active 09/06 [facility] Paraplegia BACTEREMIA 4590333 (SNOMED CT) 09/06 Active 09/06 [facility] Bacteremia EPIDURAL ABSCESS 73486400 (SNOMED CT) 09/06 Active 09/06 [facility] Epidural abscess OSTEOMYELITIS 70562775 (SNOMED CT) 09/06 Active 09/06 [facility] Osteomyelitis MSSA A49.01 (ICD-10-CM ) 09/06 Active 09/06 [facility] Methicillin susceptible Staphylococcus aureus infection, unspecified site SEPTIC DISCITIS 722.92 (ICD-9-CM) 09/06 Active 09/06 [facility] Other and unspecified disc disorder of thoracic region Medications Medication Instructions Start Date Stop Date Generic Name NDC Provider BACTRIM DS 800-160 MG TABS 1 po daily SULFAMETHOXAZ OLE-TRIMETHOP RIM [id number] Tavon J Arora MD KLOR-CON 10 10 MEQ CR-TABS take 2 po daily POTASSIUM CHLORIDE [id number] Wyatt Villaseñor Jr VALIUM TABS DIAZEPAM TABS [id number] Tiffanie Lorenzo JOB HONER PRILOSEC PACK OMEPRAZOLE MAGNESIUM PACK [id number] Tiffanie Lorenzo JOB HONER MULTIVITAMINS TABS MULTIPLE VITAMIN 10015777425 Xuan Veras BACTRIM DS 800-160 MG TABS 1 po BID SULFAMETHOXAZ OLE-TRIMETHOP RIM [id number] Tavon ROSE-CON 10 10 MEQ CR-TABS take 2 po daily POTASSIUM CHLORIDE [id number] Tiffanie Lorenzo JOB HONER Medications Administered No information available. Allergies, Adverse Reactions, Alerts Allergy Name Reaction Description Start Date Severity Statu s Provider TORODOL Moderate Active Tiffanie boogie-David JOB HONER DARVOCET Moderate Active Tiffanie E Betito off-David JOB HONER ADVIL Moderate Active Tiffanie Cristal boogie-David JOB HONER SPENCER ALLERGY Moderate Active Baylee Lorenzo JOB HONER PEPCID unknown reaction Severe Active Ki m Rito COMPAZINE unknown reaction Severe Active Bashir Veras NIZATIDINE unknown reaction Severe Active K nash Veras PROCHLORPERAZINE unknown reaction Severe Activ cristal Veras PROPOXYPHENE unknown reaction Severe Active Xuan Veras REGLAN Unknown reaction Severe Active Ki m Rito AUGMENTIN which causes seizure-like activity Critical Active Xuan Veras Results Date Name Value Unit Range Flag Description Rx Refill: eRx Request for T RIMET/SULFA >DS 800-160 TAB [id number] `TRIMET/SULF A >DS 800-160 TAB```60 Tablet`30`TA KE ONE TABLET BY MOUTH TWICE A DAY FOR INFECTION--T ANNA WITH PLENTY OF WATER--``00` 0`[id number]`2 [id number]`[facility]*``5 [id number]`` B e-scripts snow adrienne refill request Lab Report: CBC w Auto Diff MONOCYTE % 5.8 % 0.0-12.0 N Monocytes /100 leukocytes in Blood by Automated count Clinical Lists Update: Prelo ad SMOK STATUS 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 Lab Report: CBC w Auto Diff NEUTROP BF 46.6 % 41.0-71.0 N Neutroph ils/100 leukocytes in Body fluid Lab Report: Urinalysis UROBILINOGEN 1.0 0.2-1.0 N Urobilin ogen [Presence] in Urine by Test strip WBC DIPSTK U Negative Negative N Leukoc yte esterase [Presence] in Urine by Test strip NITRATE UR Negative Negative N Nitrate [Presence] in Urine PROTEIN, URN Negative Negative N protei n, urine, semiquantitative (dipstick) BLOOD UR Negative Negative N BLOOD, URI NE (hematuria) BILIRUBIN UR Negative Negative N Biliru bin.total [Presence] in Urine by Test strip KETONES URN Negative Negative N Ketones [Mass/volume] in Urine by Test strip GLUC UR LENNOX Negative g/dL Negative N Glucos e [Mass/volume] in Urine SPEC GR URIN 1.015 1.001-1.03 N Speci fic gravity of Urine by Test strip PH URINE 6.0 4.5-8.0 N pH of Urine by Test strip APPEARANCE U Clear Appearan ce of Urine UA COLOR Yellow Color of Uri ne Lab Report: Culture Urine CULTURE Specimen/Angelique rce: Urine/Clean Catch culture, comment Office Visit: 1 MEDS REVIEW Done Documenta tion of current medications (procedure) Lab Report: CBC w Auto Diff BASOPHIL % 0.2 % 0.0-1.0 N Basophils/ 100 leukocytes in Blood by Manual count % EOS AUTO 2.6 % 0.0-3.0 N Eosinophil s/100 leukocytes in Blood by Automated count MONOCYTE BF 6.5 % 0.0-12.0 N monocyte s as percent of body fluid leukocytes LYMPHS % 44.2 % 24.0-44.0 H Lymphocyte s/100 leukocytes in Blood by Automated count PMN % 46.5 % 41.0-71.0 N Neutrophils /100 leukocytes in Blood by Automated count BASOABSOLMAN 0.01 K/MCL {Cells}/ uL 0.00-0.20 N basophils, absolute, manual EOS ABSLT 0.14 10*3/uL 0.10-0.30 N Eosinophi ls [#/volume] in Blood MONOCYTABMAN 0.35 K/MCL {Cells}/ uL 0.00-1.00 N monocytes, absolute, manual LYMPHSABSMAN 2.37 K/MCL {Cells}/ uL 0.60-4.80 N lymphocytes, absolute, manual ABS NEUTROPH 2.49 10*3/uL 1.50-8.30 N Neutro phils [#/volume] in Blood PLATELETS 239 10*3/mm3 150-450 N Platelets [#/volume] in Blood by Automated count RDW_ 13.4 11.3-14.5 N RDW, no uni ts MCHC 33.8 G/DL 32.0-36.0 N MCHC [Mass/ volume] by Automated count MCH 31.7 pg 27.0-31.0 H MCH [Entiti c mass] by Automated count MCV 93.8 fL 80.0-99.0 N MCV [Entiti c volume] by Automated count HCT 37.9 % 34.5-44.0 N Hematocrit [Volume Fraction] of Blood by Automated count HGB 12.8 g/dL 11.5-15.5 N Hemoglobin [Mass/volume] in Blood RBC 4.04 M/MCL 10*6/mm3 3.89-5.14 N Erythro cytes [#/volume] in Blood by Automated count WBC 5.36 10*3/mm3 3.50-10.80 N Leukocyte s [#/volume] in Blood by Automated count Lab Report: C-Reactive Prote in CRPCARDRISK 1.700 mg/L 0.000-10.0 N C reac tive protein [Mass/volume] in Serum or Plasma Lab Report: Comprehensive Me tabolic Panel ANIONGAP 10 mmol/L 3-11 N anion gap, s hector GFRC 59 mL/min/1 .73m2 Glomerular Filtration Rate Calculation ALBUMIN 4.8 g/dL 3.4-4.8 N Albumin [Mass/volume] in Serum or Plasma PROTEIN, TOT 8.7 g/dL 6.4-8.3 H Protein [Mass/volume] in Serum or Plasma BILI TOTAL 0.3 mg/dL 0.3-1.2 N Bilirubin. total [Mass/volume] in Serum or Plasma SGPT (ALT) 28 U/L 7-40 N Alanine aminotransferase [Enzymatic activity/volume] in Serum or Plasma SGOT (AST) 36 U/L 8-33 H Aspartate aminotransferase [Enzymatic activity/volume] in Serum or Plasma ALK PHOS 51 U/L 25-100 N Alkaline phosphatase [Enzymatic activity/volume] in Blood CALCIUM 10.0 mg/dL 8.7-10.4 N Calcium [Moles/volume] in Serum or Plasma CO2 26 mmol/L 20-31 N Carbon dioxid e, total [Moles/volume] in Venous blood CHLORIDE 102 mmol/L 98-107 N Chloride [Moles/volume] in Serum or Plasma POTASSIUM 4.2 mmol/L 3.4-5.4 N Potassium [Moles/volume] in Serum or Plasma SODIUM 138 mmol/L 136-145 N Sodium [Moles/volume] in Serum or Plasma CREATININE 1.1 mg/dL 0.6-1.3 N Creatinine [Mass/volume] in Serum or Plasma BUN 20 mg/dL 6-20 N Urea nitrogen [Mass/volume] in Serum or Plasma GLUCOSE SER 119 mg/dL 70-100 H Glucose [Mass/volume] in Serum or Plasma Lab Report: ESR (Sed Rate) ESR 37 mm/h 0-30 H Erythrocyte sedimentation rate by Westergren method Plan of Care Type Date Detail Pending order CMP Pending order CBC with Differe ntial Pending order C- reactive prot ein Pending order Sedimentation Ra te (ESR) Pending order Urine Culture & Sensitivity Pending order Urinalysis Pending order Continue oral an tibiotics Procedures Code Procedure Name Date Entry Date CPT-33434 CMP CPT-85636 CBC with Differential 10/21 CPT-59735 C- reactive protein CPT-21405 Sedimentation Rate (ESR) 201 08/10/16 CPT-79098 Urine Culture & Sensitivity CPT-02982 Urinalysis CPT-Cooral Continue oral antibiotics 20 06/08/15 Vital Signs Date Name Value Unit Description BMI (Body Mass Index) 37.67 kg/m2 Bod y Mass Index (Ratio) Body Temperature 98.1 [degF] temperat ure E&M BP Diastolic 78 mm[Hg] blood pressu re, diastolic BP Systolic 114 mm[Hg] blood pressur e, systolic Heart Rate 88 /min pulse rate Height 60.5 [in_us] height E&M Respiratory Rate 18 /min respirat ory rate E&M Weight Measured 195.4 [lb_av] weight E& M Weight Measured 195.4 [lb_av] weight E& M Immunizations No information available. Advance Directives No information available.
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
--- OUTSIDE RECORDS SUMMARY | 2025-02-11 01:40 | XMS_ITS | Referral Summary ---
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
--- OUTSIDE RECORDS SUMMARY | 2025-02-11 01:40 | XMS_ITS | Clinical Summary ---
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
--- OUTSIDE RECORDS SUMMARY | 2025-02-11 01:40 | XMS_ITS | Clinical Summary ---
Author Organization [facility] Address [address] [place] [address] Phone Care Team Providers Care Awning Assembler Name Role Phone Lupillo Garcia MD [...] (03/05/2021): topamax Metabolic acidosis, NAG, bicarbonate losses Encounters Date Type Department Care Team Description 12/07/2024 8:41 AM EDT - 12/07/2024 11:59 PM EDT Hospital Encounter [facility] [address] [place] [address] Lupillo Garcia MD Encounter for screening mammogram for malignant neoplasm of breast Discharge Disposition: Home or Self Care from Last 3 Months Surgical History Surgery Date Site/Laterality Comments BACK SURGERY KNEE SURGERY right knee scope FOOT SURGERY right x2 left x1 HAND SURGERY LCTR left trigger finger HIATAL HERNIA REPAIR x3 HYSTERECTOMY KNEE ARTHROSCOPY 08/19/2013 Left Left Knee Arthroscopy Partial Medial Meniscectomy Chondrplasty Patella Femoral condyle; Surgeon: Alexander Whittington MD; Location: [facility]; Service: Orthopedics OVARY REMOVAL 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 Date Comments Asthma [...] Sexual Orientation Not on file Obstetrics History Para Term AB IAB SAB Ectopic Multiple Livin g Live Births 3 Last Filed Vital Signs Vital Sign Reading Time Taken Comments Blood Pressure 111/55 03/14/2021 8:44 AM EDT Pulse 66 03/14/2021 8:44 AM EDT Temperature 36.6 C (97.9 F) 03/14/2021 8:44 AM EDT Respiratory Rate 16 03/14/2021 8:44 AM EDT Oxygen Saturation 94% 03/14/2021 8:44 AM EDT Inhaled Oxygen Concentration - - Weight 75.9 kg (167 lb 5.3 oz) 03/06/2021 8:38 P M EDT Height 152.4 cm (5') 03/05/2021 6:28 PM EDT Body Mass Index 32.68 03/05/2021 6:28 PM EDT Plan of Treatment Health Maintenance Due Date Last Done Comments Annual Wellness Exam 1963 Diabetic Eye Exam 1978 Hepatitis C Screening 1978 Pneumococcal Vaccine 50+ (1 of 2 - PCV) 1979 Cervical Cancer Screening 1981 Pap Smear 1981 HPV/Pap Cotest 1990 Cologuard 2005 Colon Cancer Screening 2005 Colonoscopy 2005 FIT 2005 Sigmoidoscopy 2005 Virtual Colonography 2005 Zoster (1 of 2) 2010 RSV or 60+ (1 - Risk 60-74 years 1-dose series) 2020 DTaP/TDaP/Td (1 - Tdap) 02/01/2021 01/31/2021 Kidney Health: eGFR 03/13/2022 03/13/2021, 03/12/2021, 03/11/2021, Additional history exists Kidney Health: uACR 10/09/2022 10/09/2021, COVID-19 Vaccine ( season) 2024 Lipids 10/20/2024 10/21/2023, 11/0 01/2022, 12/30/2016, Additional history exists Influenza Vaccine (#1) 2025 Hemoglobin A1c 04/20/2025 10/19/2024, 0210/2024, 07/21/2024, Additional history exists Breast Cancer Screening 12/07/2026 12/07/2024, 12/07 Hepatitis B Vaccine Aged Out No longe r eligible based on patient's age to complete this topic Meningococcal B Vaccine Aged Out No l onger eligible based on patient's age to complete this topic Procedures Procedure Name Priority Date/Time Associated Diagnosis Comments MM MAMMO DIGITAL MICHEAL SCREEN BILAT Routine 12/07/2024 8:47 AM EDT Encounter for screening mammogram for malignant neoplasm of breast COMPREHENSIVE METABOLIC PANEL Timed 03/13/2021 6:59 AM EDT MICROALBUMIN/CREATININ E RATIO URINE Routine 03/06/2021 9:35 AM EDT HEMOGLOBIN A1C Routine 03/05/2021 10:01 PM EDT LIPID SCREEN Routine 12/30/2016 12:14 AM EDT from Last 3 Months or Most Recently Relevant to Health Maintenance Results * MM MAMMO DIGITAL MICHEAL SCREEN BILAT (12/07/2024 8:47 AM EDT) Anatomical Region Laterality Modality Breast Bilateral Mammography 12/07/2024 8:47 AM EDT Impressions 12/08/2024 8:08 AM EDT Negative ([id number]) RECOMMENDATION: Routine Screening Mammogram in 1 Year Bilateral . . COMMENTS: DISCLAIMER *The patient was notified by MyChart or mail of the results for this examination. *The patient's information was entered into a reminder system with a target due date for the next breast imaging, in accordance with the [employer] and the Society of Breast Imaging recommendations. *Breast Imaging has a false negative rate of 15%. *Any patient with a palpable abnormality, unexplained by breast imaging, should be managed on a clinical basis by the attending physician. Narrative 12/08/2024 8:08 AM EDT EXAM: MM MAMMO DIGITAL MICHEAL SCREEN BILAT EXAM DATE: 12/07/2024 8:47 AM INDICATION: Z12.31-Encounter for screening mammogram for malignant neoplasm of [id number]-CM COMPARISON STUDIES: Compared with prior studies the most recent being 12/08/2023 MM MAMMO DIGITAL MICHEAL SCREEN BILAT at [facility] TISSUE DENSITY: There are scattered areas of fibroglandular density. FINDINGS: No mammographic evidence of malignancy. Procedure Note Nasim Hebert MD - 12/08/2024 EXAM: MM MAMMO DIGITAL MICHEAL SCREEN BILAT EXAM DATE: 12/07/2024 8:47 AM INDICATION: Z12.31-Encounter for screening mammogram for malignantneoplasm of [id number]-58-CM COMPARISON STUDIES: Compared with prior studies the most recent being 12/08/2023 MM MAMMO DIGITAL MICHEAL SCREEN BILAT at [facility] TISSUE DENSITY: There are scattered areas of fibroglandular density. FINDINGS: No mammographic evidence of malignancy. IMPRESSION: Negative ([id number]) RECOMMENDATION: Routine Screening Mammogram in 1 Year Bilateral . . COMMENTS: DISCLAIMER *The patient was notified by MyChart or mail of the results for this examination. *The patient's information was entered into a reminder system with atarget due date for the next breast imaging, in accordance with the [employer] and the Society of Breast Imaging recommendations. *Breast Imaging has a false negative rate of 15%. *Any patient with a palpable abnormality, unexplained by breast imaging,should be managed on a clinical basis by the attending physician. us Lupillo Garcia MD IMG MAMMOGRAPHY ORDERABLES Final Result * (ABNORMAL) COMPREHENSIVE METABOLIC PANEL (03/13/2021 6:59 [...] gm/dL 03/13/2021 7:54 AM EDT [facility] Total Protein 6.8 6.4 - 8.3 gm/dL 03/13/2021 7:54 AM EDT [facility] Bili Total 0.3 0.1 - 1.3 mg/dL 03/13/2021 7:54 AM EDT [facility] ALT 29 <=41 U/L 03/13/2021 7:54 AM EDT [facility] AST 25 <=40 U/L 03/13/2021 7:54 AM EDT [facility] Alk Phos 63 36 - 123 U/L 03/13/2021 7:54 AM EDT [facility] GFR Afr Am 73 >=60 mL/min/1.7 3 m2 03/13/2021 7:54 AM EDT [facility] GFR Non Afr Am 64 >=60 mL/min/1.7 3 m2 03/13/2021 7:54 AM EDT [facility] Comment: This estimated GFR was [...] 6:59 AM EDT 03/13/2021 7:07 AM EDT us Herbie Haider MD CHEMISTRY ORDERABLES Final Resu lt [facility] [address] [facility] , [place] [address] [facility] [address] [place] [id number] * (ABNORMAL) MICROALBUMIN/CREATININE RATIO URINE (03/06/2021 9:35 AM EDT) Pathologist [facility] Urine Microalb 91.0 mg/L 03/06/2021 3:54 PM EDT [facility] Urine Creatinine 80.1 mg/dL 03/06/2021 3:54 PM EDT [facility] Ur Microalb/Creat 114(H) 0 - 30 mg/g 03/06/2021 3:54 PM EDT [facility] Urine STRUCTURE OF URINARY TRACT PROPER / Unknown 03/06/2021 9:35 AM EDT 03/06/2021 9:47 AM EDT Leonardo Zepeda MD (Ronny) URINE ORDERABLE S Final Result Performing Organization Address [facility] Co de Phone Number [facility] , [place] [address] * (ABNORMAL) HEMOGLOBIN A1C (03/05/2021 10:01 PM EDT) Hgb A1C 6.8(H) 4.2 - 5.6 % 03/05/2021 10:31 PM EDT [facility] Est. Avg Glucose 148 mg/dL 03/05/2021 10:31 PM EDT [facility] Blood VENOUS BLOOD / Unknown Venipuncture / Unknown 03/05/2021 10:01 PM EDT 03/05/2021 10:10 PM EDT [facility]ative [facility] - 03/05/2021 10:31 PM EDT REFERENCE RANGE: Normal: 4.0-5.6% Pre-diabetes: 5.7-6.4% Provisional diagnosis of diabetes: >6.4% Hgb F>10% and anything which shortens red cell survival, such as hemolytic anemia, or unstable hemoglobin variants such as HbSS, HbSC, or HbCC, will lower the HbA1c value associated with a given level of glycemic control. us Leonardo Zepeda MD (Ronny) CHEMISTRY ORDER [place] Final Result Performing Organization Address [facility] Co de Phone Number [facility] , [place] [address] * (ABNORMAL) LIPID SCREEN (12/30/2016 12:14 AM EDT) Cholesterol 167 <=200 mg/dL [facility] Comment: < 200 Desirable 200 - 239 Borderline High >= 240 High Triglyceride 264(H) <=150 mg/dL [facility] Comment: < 150 Normal 150 - 199 Borderline High 200 - 499 High >= 500 Very High HDL 20(L) >=40 mg/dL [facility] Comment: > 60 Optimal 40 - 60 Acceptable < 40 Low LDL Calculated 94 <=100 mg/dL [facility] Comment: < 100 Optimal 100 - 129 Near or above optimal 130 - 159 Borderline High 160 - 189 High >= 190 Very High Blood specimen (specimen) UPPER LIMB STRUCTURE / Unknown 12/30/2016 12:14 AM EDT 12/30/2016 5:15 AM EDT Jarad Harvey MD CHEMISTRY ORDERABLES Edited Res ult - Final [facility] [address] [place] [address] from Last 3 Months or Most Recently Relevant to Health [place] [address] [place] [address] [place] [id number] MDR Advance Directives For more information, please contact: [phone] * Full Code (Latest Code Status on File) Date Activated Date Inactivated Comments 03/05/2021 7:26 PM 03/14/2021 3:00 PM * Full Code Date Activated Date Inactivated Comments 12/29/2016 9:43 PM 12/30/2016 11:10 PM Care Teams Awning Assembler Relationship Specialty Start Date End Date Lupillo Garcia MD PCP - General Family Medicine 11/10/12
--- OUTSIDE RECORDS SUMMARY | 2025-02-11 01:40 | XMS_ITS | Patient Health Record ---
Author Organization [id number] [facility] Address [address] [place], [place] [id number] Support Name Relationship Address Phone Antonio Romero Emergency Contact [address] [place] [phone] CAROLINE ROMERO Guarantor Unknown Reason For Referral No Information Plan Of Treatment No Information Insurance Providers Payer Name Payer Address Payer Phone Subscriber Number Group Number Insured Name Patient Relationship to Insured Coverage Start Date Coverage End Date [facility] [address] [address] CLAIMS [place], [place] [id number] CAROLINE ROMERO Self - patient is the insured 9
--- OUTSIDE RECORDS SUMMARY | 2025-02-11 01:40 | XMS_ITS | Clinical Summary ---
Author Organization [facility] Address [address] [place] [id number] Care Team Providers Care Drivematic Machine Operator Name Role Phone Unavailable Primary Care Provider Unavailabl e Social History Tobacco Use Types Packs/Day Years Used Date Smoking Tobacco: Never Assessed Abuse Screen Answer Date Recorded Unsafe at Home or Work/School Not on file Feels Threatened by Someone? Not on file Does Anyone Keep You from Co ntacting Others or Doint Things Outside the Home? Not on file 04/18/2023 Physical Sign of Abuse Present Not on file 1 Housing Stability Answer Date Recorded Current Living Arrangements Not on file 04/06 Potentially Unsafe Housing Conditions Not on albina e 04/18/2023 Family and Community Support Answer Yusuf e Recorded Help with Day-to-Day Activities Not on file 04/18/2023 Lonely or Isolated Not on file 04/18/2023 Employment Answer Date Recorded Do you want help finding or keeping work or a sada b? Not on file 04/18/2023 Disabilities Answer Date Recorded Concentrating, Remembering, or Making Decisions Difficulty Not on file 04/18/2023 Doing Errands Independently Difficulty Not on fi le 04/18/2023 Education Answer Date Recorded Help with school or training? Not on file Preferred Language Not on file 04/18/2023 Comments Unknown Sex and Gender Information Value Date Recorded Sex Assigned at Not on file Legal Sex Female 8:24 PM EDT Gender Identity Not on file Sexual Orientation Not on file Last Filed Vital Signs Vital Sign Reading Time Taken Comments Blood Pressure 122/80 05/19/2013 1:17 PM EST Pulse 80 05/19/2013 1:17 PM EST Temperature 36.5 C (97.7 F) 05/19/2013 1:17 PM EST Respiratory Rate 17 05/19/2013 1:17 PM EST Oxygen Saturation - - Inhaled Oxygen Concentration - - Weight 89.4 kg (197 lb 0.1 oz) 05/19/2013 1:17 P M EST Height 152.4 cm (5') 05/19/2013 1:17 PM EST Body Mass Index 38.47 05/19/2013 1:17 PM EST Plan of Treatment Health Maintenance Due Date Last Done Comments ANNUAL PHYSICAL 1960 Annual Gynecologic Pelvic and Breast Exam 1960 HEPATITIS C SCREENING 1960 TDAP/TD VACCINES (1 - Tdap) 1979 MAMMOGRAM 2000 COLOGUARD 2005 COLON CANCER SCREENING 5 YEAR SIGMOIDOSCOPY 2005 COLONOSCOPY [address] CAN[address]ER SCREENING [address] COLONOGRAPHY 2005 FECAL OCCULT BLOOD TEST 2005 FIT Testing (1 year) 2005 Pneumococcal Vaccine 50+ (1 of 1 - PCV) 2010 ZOSTER VACCINE (1 of 2) 2010 COVID-19 Vaccine (1 - 2023- season) 2024 INFLUENZA VACCINE 04/06/2025
--- OUTSIDE RECORDS SUMMARY | 2025-02-11 01:40 | XMS_ITS | Patient Health Record ---
Author Organization [facility] Address [address] [place] [address] Care Team Providers Care Electron Beam Photo Mask Maker Name Role Phone Jose MEEKS-PCP Lupillo MEEKS Primary Care Provider Unavailable Allergies Allergen (clinical drug ingredient) Drug/Non Drug [...] Allergy Active Axid seizures Drug Allergy Active Reason For Referral No Information Medications Medication SIG (Take, Route, Frequency, Duration) Notes Start Date End Date Status acetaminophen-hydrocodo ne 325 mg-5 mg 1 tab(s) orally every 8 hours; Duration: 30 days JULY 2023 RX, DO NOT FILL ANY SOONER THAN EVERY 30 DAYS, S, (OK TO FILL EARLY, ONLY IF CLOSED) 07/16/2023 Active spironolactone 50 mg ; Duration: 30 Active acetaminophen-hydrocodo ne 325 mg-5 mg 1 tab(s) orally every 8 hours; Duration: 30 days AUGUST 2023 RX, DO NOT FILL ANY SOONER THAN EVERY 30 DAYS, (OK TO FILL EARLY, ONLY IF CLOSED) 07/16/2023 Active methocarbamol 500 mg 1 tab(s) orally 3 times a day; Duration: 30 days Active Premarin 0.3 mg ; Duration: 30 Active topiramate 100 mg ; Duration: 30 Active lisinopril 2.5 mg ; Duration: 30 Active BuPROPion (Eqv-Wellbutrin SR) 150 mg/12 hours ; Duration: 30 Active atorvastatin 40 mg 1 tab(s) orally once a day; Duration: 30 day(s) 05/24/2021 Active ProAir HFA 90 mcg/inh ; Duration: 25 Active gabapentin 100 mg ; Duration: 30 Active Lantus Solostar Pen 100 units/mL ; Duration: 50 Active diazePAM 2 mg 1 tab(s) orally PRN 05/24/2021 Active Social History Tobacco Use: Social History [...] osteoarthritis of the pelvic region and thigh (027049110) Unilateral primary osteoarthritis, unspecified hip (M16.10) Active confirmed Problem Solitary sacroiliitis (106966148) Sacroiliitis, not elsewhere classified (M46.1) Active confirmed Problem Lumbosacral spondylosis without myelopathy (77568254) Spondylosis without myelopathy or radiculopathy, lumbar region (M47.816) Active confirmed Problem Degeneration of lumbosacral intervertebral disc (90146715) Other intervertebral disc degeneration, lumbosacral region (M51.37) Active confirmed Problem Cervicalgia (20103606) Cervicalgia (M54.2) Active confirmed Problem Low back pain (605851085) Low back pain (M54.5) Active confirmed Problem Long-term current use of drug therapy (165693677) Other m[facility]p (current) drug therapy (Z79.899) Active confirmed Plan Of Treatment Pending Test Test Name Order Date Urine Test ANALYZER 01/30/2023 Urine Test ANALYZER 11/01/2019 Insurance Providers Payer Name Payer Address Payer Phone Subscriber Number Group Number Insured Name Patient Relationship to Insured Coverage Start Date Coverage End Date [employer] [address] [address] [place] [address] [id number] Tyra Romero Self - patient is the insured 9 [...] by Dr. Garcia Surgical History Surgery Date(Month/Year) Tonsillectomy, [facility], 3 day stay 1981 Right Carpal Tunnel Release, [facility], Outpatient 1993 Right Knee Arthroplasty, [facility], Outpatient 1994 Left Carpal Tunnel Release, Nahum Kahn, [facility], O[facility] 1994 Left foot nodules, [facility], Out patient 1994 Right foot nodules removed, [facility], Outpatient 1995 Left third digit trigger fin adrienne release, Outpatient [facility], Dr. Sidhu, Outpatient 1995 cholecystectomy, [facility], [place] Outpatient 1995 Hysterectomy, Dr. Roman, [facility], Out patient 1996 Left knee arthroscopy, [facility], Outpatient 1996 Right third finger trigger release, Dr[facility] Felipe, [facility] 1996 Hiatal Hernia, [facility], Outpatient 2000 OP Surgery on her left upper chest at [facility] in [place] 11/2019 Hardware [facility] in thoracic spine [facility]use [facility] 2010 Hospitalization History Reason Date(Month/Year) COVID/[facility]/ 2 weeks. 03/2021 Virus/ [facility] 022
--- NOTE | 2025-02-11 01:45 | [facility].EDGENADL ---
Discharge Plan Disposition Patient Disposition: Home, Self-Care Condition: Good Prescriptions Prescriptions: No Action bupropion HCl 150 mg tablet sustained-release 12 hr 150 mg PO BID tizanidine 4 mg tablet 4 mg PO BID amlodipine 5 mg tablet 5 mg PO DAILY aspirin 81 mg tablet,chewable 81 mg PO DAILY gabapentin 100 mg capsule 100 mg PO TID lisinopril 2.5 mg tablet 2.5 mg PO DAILY spironolactone 50 mg tablet 50 mg PO DAILY insulin glargine [Lantus Solostar U-100 Insulin] 100 unit/mL (3 mL) insulin pen 15 unit SQ DAILY Rx Instructions: units per MD daily diclofenac sodium [Voltaren Arthritis Pain] 1 % gel 4 g topical QID Qty: 50 0RF Rx Instructions: apply to single knee, ankle, foot; for foot includes sole/toes/top of foot promethazine 25 mg tablet 25 mg PO HS cefdinir 300 mg capsule 300 mg PO BID 7 Days Qty: 14 0RF fluconazole 150 mg tablet 150 mg PO Q3D Qty: 2 0RF Rx Instructions: may repeat second dose 72 hrs after first dose if symptoms persist promethazine 25 mg tablet 25 mg PO Q6H PRN (Reason: nausea and vomiting) 7 Days Qty: 10 0RF atorvastatin 40 mg tablet 40 mg PO HS methocarbamol 500 mg tablet 500 mg PO TID famotidine 20 mg tablet 20 mg PO BID meclizine 25 mg tablet 25 mg PO TID insulin lispro [Humalog KwikPen Insulin] 100 unit/mL insulin pen 20 unit SQ ACHS hydrocodone-acetaminophen 5-325 mg tablet 1 tab PO TIDP PRN (Reason: Pain) allopurinol 100 mg tablet 100 mg PO DAILY polyethylene glycol 3350 17 gram/dose powder 17 g PO DAILY topiramate 100 mg tablet 200 mg PO HS cholecalciferol (vitamin D3) 10 mcg (400 unit) tablet 400 mcg PO DAILY Premarin 0.3 mg tablet 0.3 mg PO DAILY levofloxacin 500 mg tablet 500 mg PO DAILY Qty: 5 0RF Referrals Follow up/Referrals: Provider,Referral, MD [Primary Care Provider, Medical] - See instructions Activity Restrictions/Add. Instructions Additional Instructions/Restrictions: You were evaluated in the ER and are believed to be appropriate for discharge at this time. Be sure to keep anything that comes in contact with your vaginal area very clean and clean after every use. Make an appointment with your primary care doctor for reevaluation in 2 to 3 days to recheck your symptoms. Return to the ER with any new, worsening, or otherwise concerning symptoms. Clinical Impressions Clinical Impression: Vaginitis, Dysuria Instructions Patient Instructions: Vaginal Yeast Infection, DI for Vaginal Yeast Infection Print Language Print Language: Croatian Discharge ED Provider: Gagan Rizvi General Adult HPI General Chief complaint: Urogenital-Female Stated complaint: abd itching,burning when urinating,history kidney Time Seen by Provider: 02/11/25 01:22 Mode of Arrival: Ambulatory Source of Information: Patient Description of Symptoms (Recalled from ER Triage Doc. by RN): Pt present with dysuria and itching after urination. Pt is unsure if she has any discharge. Symptoms started several days ago and worsened throughout the day. Denies any other symptoms at this time History of Present Illness HPI narrative: 64-year-old female presents to the ER concerned with dysuria and itching in the vaginal area. Patient reports mild suprapubic discomfort. She states symptoms started several days ago and have gradually worsened. She has no other abdominal pain, nausea, vomiting, no constipation or diarrhea, no back pain. Patient denies any fevers or chills. She does not believe she has had any abnormal vaginal discharge, denies any vaginal bleeding. Patient reports some burning during urination and persistent burning after. No injuries. She is not sexually active stating her 4 years ago. She denies concern for STD. Related Data Home Medications ?Medication ?Instructions ?Recorded ?Confirmed amlodipine 5 mg tablet 5 mg PO DAILY 03/31/22 10/15/23 aspirin 81 mg chewable tablet 81 mg PO DAILY 03/31/22 10/15/23 bupropion HCl 150 mg tablet,12 hr 150 mg PO BID Depression 03/31/22 10/15/23 sustained-release gabapentin 100 mg capsule 100 mg PO TID neuropathy 03/31/22 10/15/23 insulin glargine 100 unit/mL (3 15 unit SQ DAILY Diabetes 03/31/22 10/15/23 mL) subcutaneous pen (Lantus Solostar U-100 Insulin) lisinopril 2.5 mg tablet 2.5 mg PO DAILY High blood pressure 03/31/22 10/15/23 spironolactone 50 mg tablet 50 mg PO DAILY High blood pressure 03/31/22 10/15/23 tizanidine 4 mg tablet 4 mg PO BID neuropathy 03/31/22 10/15/23 atorvastatin 40 mg tablet 40 mg PO HS 05/06/23 10/15/23 famotidine 20 mg tablet 20 mg PO BID 05/06/23 10/15/23 insulin lispro 100 unit/mL 20 unit SQ ACHS 05/06/23 10/15/23 subcutaneous pen (Humalog KwikPen (U-100) Insulin) meclizine 25 mg tablet 25 mg PO TID 05/06/23 10/15/23 methocarbamol 500 mg tablet 500 mg PO TID 05/06/23 10/15/23 allopurinol 100 mg tablet 100 mg PO DAILY 05/07/23 10/15/23 cholecalciferol (vitamin D3) 10 400 mcg PO DAILY 05/07/23 10/15/23 mcg (400 unit) tablet conjugated estrogens 0.3 mg tablet 0.3 mg PO DAILY 05/07/23 10/15/23 (Premarin) hydrocodone 5 mg-acetaminophen 325 1 tab PO TIDP PRN Pain 05/07/23 10/15/23 mg tablet polyethylene glycol 3350 17 17 g PO DAILY 05/07/23 10/15/23 gram/dose oral powder topiramate 100 mg tablet 200 mg PO HS migraine 05/07/23 11/19/23 promethazine 25 mg tablet 25 mg PO HS migraine 11/19/23 11/19/23 Previous Rx's ?Medication ?Instructions ?Recorded levofloxacin 500 mg tablet 500 mg PO DAILY #5 tabs 05/09/23 diclofenac sodium 1 % topical gel 4 g topical QID #50 grams 08/29/23 (Voltaren Arthritis Pain) cefdinir 300 mg capsule 300 mg PO BID 7 days #14 caps 01/31/24 fluconazole 150 mg tablet 150 mg PO Q3D 2 doses #2 tabs 01/31/24 promethazine 25 mg tablet 25 mg PO Q6H PRN nausea and 06/17/24 vomiting 7 days #10 tabs Allergies Allergy/AdvReac Type Severity Reaction Status Date / Time acetaminophen (From Tylenol) Allergy Verified 09/11/23 11:01 amoxicillin Allergy Verified 09/11/23 11:01 butorphanol (From Stadol) Allergy Verified 09/11/23 11:01 clavulanic acid Allergy Verified 09/11/23 11:01 fexofenadine Allergy Verified 09/11/23 11:01 ibuprofen Allergy Verified 09/11/23 11:01 ketorolac Allergy Verified 09/11/23 11:01 metoclopramide Allergy Verified 09/11/23 11:01 nizatidine Allergy Verified 09/11/23 11:01 ondansetron (From Zofran) Allergy Verified 09/11/23 11:01 prochlorperazine Allergy Verified 09/11/23 11:01 propoxyphene Allergy Verified 09/11/23 11:01 PFSH [facility] Disclaimer: The information contained in this section may have been updated after the patient was seen, as this information can be updated by other users. 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 , [employer]) CAD (coronary artery disease) HLD (hyperlipidemia) VIOLA (acute kidney injury) Fall Vertigo Headache Acute sore throat Upper respiratory infection, viral URI (upper respiratory infection) Depression Anxiety Migraine Diabetes mellitus, type 2 Asthma Hypertension Lumbar radiculopathy Cervical disc disease Exposure to COVID-19 virus Viral upper respiratory infection Laceration Diabetes Prepatellar bursitis, left knee Urinary tract infection Surgical History , [employer] P[employer]) History of tubal ligation History of tonsillectomy History of section History of cholecystectomy Family History , [employer]) Heart failure Cancer Hypertension Social History , [employer]) Smoking Status: Never smoker alcohol intake: never current occupational status: other Travel in the last 8 weeks?: None Have you lived/traveled outside [place] in past 30 days?: No Contact w/someone who lives/traveled outside US past 30 days?: No Exposure to someone with infectious disease in past 14 days?: No Do you have a fever (greater than 100.4 F or 38 C)?: No Have you tested positive for COVID-19?: No Exposed to someone with COVID-19 in past 14 days?: No Do you have a sore throat?: No Do you have a cough?: No Do you have any weakness?: No Do you have any diarrhea?: No Are you experiencing any unusual bleeding?: No Do you have any muscle aches/pain?: No Do you have any abdominal pain?: Yes Are you experiencing loss of taste or smell?: No Other 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 Have you received the Flu Vaccine for this season: No Have you received the Pneumonia Vaccine: No ROS Obtained: Yes Systems reviewed as appropriate & no additional complaints except as documented per HPI Physical Exam General General appearance: alert and in no apparent distress Head Head exam: atraumatic and normocephalic Eye Eye exam: Present PERRL and EOMI ENT ENT exam: Present mucous membranes moist Neck Neck exam: Present normal inspection and full ROM Chest Chest inspection: Present symmetric chest wall rise Respiratory Respiratory exam: Absent respiratory distress or stridor Cardiovascular Cardiovascular exam: Present regular rate and normal rhythm Abdominal Exam Abdominal exam: Present soft and tenderness (very mild suprapubic); Absent distention, guarding or rebound External exam: Present normal external exam Speculum exam: Present erythema and vaginal discharge (small amount of thick, white vaginal discharge); Absent cervical discharge, vaginal bleeding or foreign body Bimanual exam: Absent cervical motion tenderness or adnexal tenderness Extremities Exam Extremities exam: Present full ROM; Absent edema Neurological Exam Neurological exam: Present alert and oriented X3; Absent motor sensory deficit Psychiatric Psychiatric exam: Present normal affect and normal mood Skin Skin exam: Present warm and dry Medical Decision Making Medical Records Medical records reviewed: Yes I reviewed the patient's medical records. Screening: Per USPSTF and CDC recommendations, given the prevalence of disease in our region, it is our hospital?s policy to screen for HIV and viral Hepatitis for all patients aged 18 and over and those with ongoing risk factors. Mirza Inquiry Pt receiving controlled substance: No Vital Signs: 02/11/25 01:35 Temperature 98 F Temperature Source Oral Pulse Rate [Left] 72 Respiratory Rate 16 Blood Pressure [Right Arm] 129/71 Blood Pressure Mean [Right Arm] 90 Blood Pressure Source [Right Arm] Automatic Cuff Blood Pressure Position [Right Arm] Sitting 02 Sat by Pulse Oximetry 97 Oxygen Delivery Method Room Air Lab Data Lab Results 02/11/25 01:20: Urine Color Yellow, Urine Appearance Clear, Urine pH 6.0, Ur Specific [place] 1.015, Urine Protein Negative, Urine Glucose (UA) 3+, Urine Ketones Negative, Urine Blood Negative, Urine Nitrate Negative, Urine Bilirubin Negative, Urine Urobilinogen 0.2, Ur Leukocyte Esterase Negative, Urine RBC None, Urine WBC Occasional, Ur Squamous Epith Cells Occasional, Urine Bacteria Trace Orders (Tests/Meds): ED MEDICATIONS Generic Name Dose Route Start Last Admin Trade Name Freq PRN Reason Stop Dose Admin Fluconazole 200 mg 02/11/25 02:16 02/11/25 02:18 Fluconazole 200mg Tablet PO 02/11/25 02:17 200 mg DAILY ONE Administration Discontinued Medications Generic Name Dose Route Start Last Admin Trade Name Freq PRN Reason Stop Dose Admin Fluconazole 200 mg 02/11/25 09:00 Fluconazole 200mg Tablet PO 02/18/25 08:59 DAILY CELESTE ORDERS Category Date Time Status Urinalysis and Microscopic Stat Lab 02/11/25 01:20 Results Urine Chlam/Gono/Trich ([facility]) Stat Lab 02/11/25 01:20 Received Medical Decision Narrative: In summary, this 64-year-old female with a history of previous UTI, yeast vaginitis, cervical radiculopathy presents to the emergency department today with burning urination. On initial evaluation patient is hemodynamically stable, afebrile, ambulatory, overall well-appearing. Exam is only notable for very mild suprapubic tenderness to palpation with no rebound or guarding, no peritonitic findings, exam with machine pecan picker present demonstrates mildly erythematous vaginal mucosa with small amount of thick white discharge, no adnexal tenderness or mass appreciated. Differential diagnosis includes but is not limited to UTI, yeast vaginitis, STI. Based on these concerns, I ordered urine studies. With findings on exam I believe patient likely has yeast vaginitis so single dose of Diflucan was administered. UA negative for findings of infection. STI testing pending but patient would like to be discharged which I believe is reasonable. I will call her if the results of this require any change in management. No prescriptions at this time. Patient is well-appearing and appropriate for discharge and comfortable with this plan. Patient was given instructions on symptomatic management, follow up instructions, and return precautions for the emergency department. Patient indicated understanding and was discharged in stable condition. Critical Care Critical Care Time Critical Care Time: No
[2025-02-11 01:53] LABS: Microscopic, Urine URINE MICROSCOPIC (MICROSCOPIC)
[2025-02-11 01:57] LABS: Bilirubin,Urine Negative (Negative); Color,Urine YELLOW (Yellow); Glucose,Urine (UA) 3+ (Negative); Ketones,Urine Negative (Negative); Leukocyte Esterase,Urine Negative (Negative); PH,Urine 6.0 (5.0-8.5); Protein,Urine Negative (Negative); Specific Gravity, Urine 1.015 (1.005-1.030); Urobilinogen,Urine 0.2 EU/dl (0.2)
[2025-02-11 02:17] LABS: Bacteria,Urine Trace /lpf; Squamous Epithelial Cell,Urine Occasional #/hpf (0-5); WBC,Urine Occasional #/hpf (0-3)
[2025-02-11] MEDS: FLUCONAZOLE 200MG TABLET 200 MG PO (02:18)
[2025-02-11 02:22] VITALS: BP 126/77; PULSE 77; RESP 16; TEMP 36.6; O2SAT 99
== END 2025-02-11 02:20 | disposition home or self-care (01) ==
PROVIDERS: Emergency Provider Emergency Medicine
DX: R10.819 Abdominal tenderness, unspecified site (principal); R30.0 Dysuria; N76.0 Acute vaginitis
CPT/HCPCS: 81001; 87491; 87591; 87661; 99283

== ENCOUNTER 2025-05-25 09:43 | Outpatient (RCR) | payer MEDICAID, SELFPAY | END 2025-05-25 23:59 | disposition home or self-care (01) | LOC: PT 09:43 | PROVIDERS: Visit Provider Pain Medicine Interventional Pain Medicine | DX: M47.816 Spondylosis without myelopathy or radiculopathy, lumbar region (principal) | CPT/HCPCS: 97162 ==

== ENCOUNTER 2025-06-17 14:59 | Emergency (ER) | payer MEDICAID, SELFPAY ==
[2025-06-17 15:15] VITALS: BP 167/83; PULSE 77; RESP 18; TEMP 36.5; O2SAT 98; BMI 23.8
--- NOTE | 2025-06-17 15:31 | HMH.EDGENADL ---
Discharge Plan Disposition Patient Disposition: Home, Self-Care Condition: Good Prescriptions Prescriptions: No Action sodium,potassium,mag sulfates [Suprep Bowel Prep Kit] 17.5-3.13-1.6 gram recon soln See Rx Instructions PO .COMPLEX Qty: 354 0RF Rx Instructions: DILUTE; drink full amount early evening before AND next morning at least 4-5 hr before procedure; follow w 960 mL water PO peg 3350-electrolytes [Golytely] 236-22.74-6.74 -5.86 gram recon soln 240 ml PO Q10M Qty: 4000 0RF Rx Instructions: at 6pm day before surgery take first dose. After mixing prep as directed, drink half of the gallon by drinking 8 ounces, or 1 cup, every 15 mins until half is remaining. refrigerate the remaining and continue clear liquids till midnight. 5-6 hours before exam, take the second dosage, 8oz every 15 mins till gone. bupropion HCl 150 mg tablet sustained-release 12 hr 150 mg PO BID tizanidine 4 mg tablet 4 mg PO BID amlodipine 5 mg tablet 5 mg PO DAILY aspirin 81 mg tablet,chewable 81 mg PO DAILY gabapentin 100 mg capsule 100 mg PO TID lisinopril 2.5 mg tablet 2.5 mg PO DAILY spironolactone 50 mg tablet 50 mg PO DAILY insulin glargine [Lantus Solostar U-100 Insulin] 100 unit/mL (3 mL) insulin pen 15 unit SQ DAILY Rx Instructions: units per MD daily diclofenac sodium [Voltaren Arthritis Pain] 1 % gel 4 g topical QID Qty: 50 0RF Rx Instructions: apply to single knee, ankle, foot; for foot includes sole/toes/top of foot promethazine 25 mg tablet 25 mg PO HS fluconazole 150 mg tablet 150 mg PO Q3D Qty: 2 0RF Rx Instructions: may repeat second dose 72 hrs after first dose if symptoms persist promethazine 25 mg tablet 25 mg PO Q6H PRN (Reason: nausea and vomiting) 7 Days Qty: 10 0RF atorvastatin 40 mg tablet 40 mg PO HS methocarbamol 500 mg tablet 500 mg PO TID famotidine 20 mg tablet 20 mg PO BID meclizine 25 mg tablet 25 mg PO TID insulin lispro [Humalog KwikPen Insulin] 100 unit/mL insulin pen 20 unit SQ ACHS hydrocodone-acetaminophen 5-325 mg tablet 1 tab PO TIDP PRN (Reason: Pain) allopurinol 100 mg tablet 100 mg PO DAILY polyethylene glycol 3350 17 gram/dose powder 17 g PO DAILY topiramate 100 mg tablet 200 mg PO HS conjugated estrogens [Premarin] 0.3 mg tablet 0.3 mg PO DAILY levofloxacin 500 mg tablet 500 mg PO DAILY Qty: 5 0RF Referrals Follow up/Referrals: Provider,Referral, MD [Primary Care Provider, Medical] - See instructions Activity Restrictions/Add. Instructions Additional Instructions/Restrictions: Return to the emergency department for any acute or worsening symptoms. Clinical Impressions Clinical Impression: Headache Instructions Patient Instructions: DI for Headache Print Language Print Language: Gu[place] Discharge ED Provider: Matilde Hsu General Adult HPI General Chief complaint: Headache Stated complaint: Migraine 3 days, dizzy, n/v, black spots in eyes Time Seen by Provider: 06/17/25 15:07 Mode of Arrival: Ambulatory Source of Information: Patient Description of Symptoms (Recalled from ER Triage Doc. by RN): Reports a migraine for 3 days. Does have a history of migraines. History of Present Illness HPI narrative: Patient is a 65-year-old female with a past medical history of migraines who presents to the emergency department with a headache. Patient states that her headache has been there for 3 days, gradual onset, feels similar to her prior obvious migraines. Patient denies any visual symptoms at this time although there were some noted black spots in triage. Patient denies any numbness or weakness. Patient denies any chest pain or shortness of breath. Patient does report some nausea without vomiting. Patient denies any abdominal pain. Patient denies any neck pain. Patient states that she took her Topamax as scheduled today and did not give any significant relief. Is allergic to multiple medications and states that typically in the past she has gotten morphine and Phenergan. Patient has not had any fevers or any other infectious symptoms. Related Data Home Medications ?Medication ?Instructions ?Recorded ?Confirmed amlodipine 5 mg tablet 5 mg PO DAILY 03/31/22 06/17/25 aspirin 81 mg chewable tablet 81 mg PO DAILY 03/31/22 06/17/25 bupropion HCl 150 mg tablet,12 hr 150 mg PO BID Depression 03/31/22 06/17/25 sustained-release gabapentin 100 mg capsule 100 mg PO TID neuropathy 03/31/22 06/17/25 insulin glargine 100 unit/mL (3 15 unit SQ DAILY Diabetes 03/31/22 06/17/25 mL) subcutaneous pen (Lantus Solostar U-100 Insulin) lisinopril 2.5 mg tablet 2.5 mg PO DAILY High blood pressure 03/31/22 06/17/25 spironolactone 50 mg tablet 50 mg PO DAILY High blood pressure 03/31/22 06/17/25 tizanidine 4 mg tablet 4 mg PO BID neuropathy 03/31/22 06/17/25 atorvastatin 40 mg tablet 40 mg PO HS 05/06/23 06/17/25 famotidine 20 mg tablet 20 mg PO BID 05/06/23 06/17/25 insulin lispro 100 unit/mL 20 unit SQ ACHS 05/06/23 06/17/25 subcutaneous pen (Humalog KwikPen (U-100) Insulin) meclizine 25 mg tablet 25 mg PO TID 05/06/23 06/17/25 methocarbamol 500 mg tablet 500 mg PO TID 05/06/23 06/17/25 allopurinol 100 mg tablet 100 mg PO DAILY 05/07/23 06/17/25 conjugated estrogens 0.3 mg tablet 0.3 mg PO DAILY 05/07/23 06/17/25 (Premarin) hydrocodone 5 mg-acetaminophen 325 1 tab PO TIDP PRN Pain 05/07/23 06/17/25 mg tablet polyethylene glycol 3350 17 17 g PO DAILY 05/07/23 06/17/25 gram/dose oral powder topiramate 100 mg tablet 200 mg PO HS migraine 05/07/23 06/17/25 promethazine 25 mg tablet 25 mg PO HS migraine 11/19/23 06/17/25 Previous Rx's ?Medication ?Instructions ?Recorded levofloxacin 500 mg tablet 500 mg PO DAILY #5 tabs 05/09/23 diclofenac sodium 1 % topical gel 4 g topical QID #50 grams 08/29/23 (Voltaren Arthritis Pain) fluconazole 150 mg tablet 150 mg PO Q3D 2 doses #2 tabs 01/31/24 promethazine 25 mg tablet 25 mg PO Q6H PRN nausea and 06/17/24 vomiting 7 days #10 tabs peg 3350-electrolytes 236 240 ml PO Q10M colonscopy #4,000 mL 06/07/25 gram-22.74 gram-6.74 gram-5.86 gram solution (Golytely) sodium,potassium,mag sulfates 17.5 See Rx Instructions PO .COMPLEX 06/07/25 gram-3.13 gram-1.6 gram oral soln #354 mL (Suprep Bowel Prep Kit) Allergies Allergy/AdvReac Type Severity Reaction Status Date / Time acetaminophen (From Tylenol) Allergy Seizure Verified 06/17/25 13:41 amoxicillin Allergy Seizure Verified 06/17/25 13:41 butorphanol (From Stadol) Allergy Seizure Verified 06/17/25 13:41 clavulanic acid Allergy Seizure Verified 06/17/25 13:41 fexofenadine Allergy Seizure Verified 06/17/25 13:41 ibuprofen Allergy Seizure Verified 06/17/25 13:41 ketorolac Allergy Seizure Verified 06/17/25 13:41 metoclopramide Allergy Seizure Verified 06/17/25 13:41 nizatidine Allergy Seizure Verified 06/17/25 13:41 ondansetron (From Zofran) Allergy Seizure Verified 06/17/25 13:41 prochlorperazine Allergy Seizure Verified 06/17/25 13:41 propoxyphene Allergy Seizure Verified 06/17/25 13:41 PFS PFS Disclaimer: The information contained in this section may have been updated after the patient was seen, as this information can be updated by other users. 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 (Updated 06/17/25 @ 18:03 by Matilde Hsu DO) CAD (coronary artery disease) HLD (hyperlipidemia) VIOLA (acute kidney injury) Fall Vertigo Headache Acute sore throat Upper respiratory infection, viral URI (upper respiratory infection) Depression Anxiety Migraine Diabetes mellitus, type 2 Asthma Hypertension Lumbar radiculopathy Cervical disc disease Exposure to COVID-19 virus Viral upper respiratory infection Laceration Diabetes Prepatellar bursitis, left knee Urinary tract infection Surgical History (Updated 06/17/25 @ 13:55 by Yisel Rodriguez RN) History of hernia surgery History of surgery History of hand surgery H/O hand surgery H/O foot surgery History of tubal ligation History of tonsillectomy History of section History of cholecystectomy Family History , [employer]) Heart failure Cancer Hypertension Social History (Updated 06/17/25 @ 13:55 by Yisel Rodriguez RN) Smoking Status: Never smoker alcohol intake: never current occupational status: disabled Travel in the last 8 weeks?: None Have you lived/traveled outside [place] in past 30 days?: No Contact w/someone who lives/traveled outside US past 30 days?: No Exposure to someone with infectious disease in past 14 days?: No Do you have a fever (greater than 100.4 F or 38 C)?: No Have you tested positive for COVID-19?: No Exposed to someone with COVID-19 in past 14 days?: No Do you have a sore throat?: No Do you have a cough?: No Do you have any weakness?: No Do you have any diarrhea?: No Are you experiencing any unusual bleeding?: No Do you have any muscle aches/pain?: No Do you have any abdominal pain?: No Are you experiencing loss of taste or smell?: No Other 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 Have you received the Flu Vaccine for this season: No Have you received the Pneumonia Vaccine: No ROS Obtained: Yes All systems reviewed & no additional complaints except as documented and Yes Systems reviewed as appropriate & no additional complaints except as documented Physical Exam General General appearance: alert and in no apparent distress Head Head exam: atraumatic, normocephalic and normal inspection Eye Eye exam: Present normal appearance, PERRL and EOMI; Absent scleral icterus ENT ENT exam: Present normal exam, mucous membranes moist and normal external ear exam Neck Neck exam: Present normal inspection and full ROM; Absent tenderness or meningismus Chest Chest inspection: Present normal inspection and symmetric chest wall rise Respiratory Respiratory exam: Present normal lung sounds bilaterally; Absent respiratory distress or wheezes Cardiovascular Cardiovascular exam: Present regular rate, normal rhythm and normal heart sounds Abdominal Exam Abdominal exam: Present soft and distention; Absent tenderness, guarding or rebound Extremities Exam Extremities exam: Present normal inspection and full ROM Back Exam Back exam: Present normal inspection and full ROM Neurological Exam Neurological exam: Present alert, oriented X3, CN II-XII intact, normal gait and reflexes normal; Absent motor sensory deficit Psychiatric Psychiatric exam: Present normal affect and normal mood Skin Skin exam: Present warm and dry Medical Decision Making Medical Records Medical records reviewed: Yes I reviewed the patient's medical records. Screening: Per USPSTF and CDC recommendations, given the prevalence of disease in our region, it is our hospital?s policy to screen for HIV and viral Hepatitis for all patients aged 18 and over and those with ongoing risk factors. Mirza Inquiry Pt receiving controlled substance: No Vital Signs: 06/17/25 15:15 06/17/25 16:20 06/17/25 18:33 Temperature 97.7 F 97.7 F Temperature Source Oral Oral Pulse Rate 70 70 Pulse Rate [Radial] 77 Respiratory Rate 18 16 16 Blood Pressure 164/78 H 150/60 H Blood Pressure [Right Arm] 167/83 H Blood Pressure Mean [Right Arm] 111 Blood Pressure Source Automatic Cuff Automatic Cuff Blood Pressure Source [Right Arm] Automatic Cuff Blood Pressure Position Supine Sitting Blood Pressure Position [Right Arm] Sitting 02 Sat by Pulse Oximetry 98 98 Oxygen Delivery Method Room Air Room Air Room Air Lab Data Lab results reviewed: Yes I reviewed the patient's lab results. Lab Results 06/17/25 15:52: WBC 6.4, RBC 4.69, Hgb 15.3, Hct 44.8, MCV 95.5, MCH 32.6 H, MCHC 34.2, RDW 12.8, Plt Count 230, MPV 10.3, Neut % (Auto) 52.0, Lymph % (Auto) 39.0, [place] % (Auto) 4.9, Eos % (Auto) 3.3, Baso % (Auto) 0.6, Neut # (Auto) 3.3, Lymph # (Auto) 2.5, [place] # (Auto) 0.3, Eos # (Auto) 0.2, Baso # (Auto) 0.0, PT 10.3, INR 0.92, Sodium 141, Potassium 4.6, Chloride 102, Carbon Dioxide 21 L, Anion Gap 22.6 H, BUN 31 H, Creatinine 1.50 H, Estimated Creat Clear 33, Estimated GFR 35 L, Est GFR ( Amer) 42 L, Glucose 159 H, Calcium 9.8, Total Bilirubin 0.9, AST 41 H, ALT 25, Alkaline Phosphatase 83, Total Protein 10.5 H D, Albumin 5.7 H, Globulin 4.8 H, Albumin/Globulin Ratio 1.2 06/17/25 15:52 06/17/25 15:52 Orders (Tests/Meds): ED MEDICATIONS Discontinued Medications Generic Name Dose Route Start Last Admin Trade Name Freq PRN Reason Stop Dose Admin Magnesium Sulfate 2 gm in 50 mls @ 50 mls/hr 06/17/25 15:26 06/17/25 18:33 Magnesium Sulfate 2gm/50ml Premix IV 06/17/25 16:25 Infused ONCE ONE Infusion Sodium Chloride 500 mls @ 999 mls/hr 06/17/25 15:26 Sod Chlor 0.9% 1000ml Bag IV 06/17/25 15:56 .Q31M ONE Morphine Sulfate 4 mg 06/17/25 16:51 06/17/25 17:32 Morphine 2mg/Ml Syringe IV 06/17/25 16:52 4 mg ONCE ONE Administration Promethazine HCl 25 mg 06/17/25 15:26 06/17/25 16:16 Promethazine Hcl 25mg/Ml 1ml Vial IV 06/17/25 15:27 25 mg ONCE ONE Administration Sodium Chloride 10 ml 06/17/25 15:26 Sodium Chloride 0.9% 10ml Flush Syringe IV 07/17/25 15:25 NEEDED PRN Maintain IV Site Sodium Chloride 25 ml 06/17/25 15:26 06/17/25 16:16 Sodium Chloride 0.9% 25ml Bag IV 06/17/25 15:27 25 ml ONCE ONE Administration Sumatriptan Succinate 50 mg 06/17/25 16:51 06/17/25 17:32 Sumatriptan Succinate 25mg Tablet PO 06/17/25 16:52 50 mg ONCE ONE Administration ORDERS Category Date Time Status CT head/brain wo con Stat Cat Scan 06/17/25 15:51 Completed CBC w/Auto Diff [Complete Blood Count Auto Diff] Stat Lab 06/17/25 15:52 Completed CMP [Comprehensive Metabolic Panel] Stat Lab 06/17/25 15:52 Completed Prothrombin Time INR Stat Lab 06/17/25 15:52 Completed Medical Decision Narrative: Patient is a 65-year-old female with a past medical history of migraines who presented to the emergency department with a headache. On arrival, patient was hemodynamically stable with unremarkable vital signs. Differential includes but not limited to: Viral syndrome, tension headache, migraine headache, intracranial process, amongst others. Labs were reviewed and interpreted by myself: CBC showed no leukocytosis, hemoglobin was stable. INR was normal. CT scan was obtained of the head which showed no acute intracranial process. Patient was given multiple medications in the emergency department with relief further symptoms. Patient was recommended to continue taking her Topamax as scheduled return to the emergency department for any acute or worsening symptoms and follow-up with neurology as needed. Critical Care Critical Care Time Critical Care Time: No
--- NOTE | 2025-06-17 15:51 | CT_ITS ---
FINAL REPORT TECHNIQUE: Axial CT images were performed through the head. Coronal reformatted images were submitted. This study was performed with techniques to keep radiation doses as low as reasonably achievable (ALARA). Individualized dose reduction techniques using automated exposure control or adjustment of mA and/or kV according to the patient's size were employed. CLINICAL HISTORY: headache, migraine COMPARISON: 07/05/2024 FINDINGS: The ventricles are normal in size. There is no evidence of hemorrhage. There is no mass or edema identified. There is no abnormal extra-axial fluid seen. The paranasal sinuses are well aerated. IMPRESSION: No acute intracranial process. Reviewed, Interpreted and Dictated by Phil Fleming MD Transcribed by Ronel Griffith Authenticated and [facility]
[2025-06-17 16:01] LABS: Hematocrit 44.8 % (37.0-47.0); Hemoglobin 15.3 g/dL (12.2-16.2); Immature Granulocytes % 0.2 %; Mean Corpuscular HGB Conc 34.2 g/dL (31.8-35.4); Mean Corpuscular Hemoglobin 32.6 pg (27.0-31.2); Mean Corpuscular Volume 95.5 fl (81-99); Nucleated Red Blood Cells % 0 %; Platelet Count 230 K/mm3 (142-424); Red Blood Count 4.69 M/mm3 (4.20-5.40); Red Cell Distribution Width-SD 44.9 fL; White Blood Count 6.4 K/mm3 (4.8-10.8)
[2025-06-17 16:09] LABS: Alanine Aminotransferase 25 U/L (12-78); Albumin Level 5.7 g/dl (3.5-5.0); Albumin/Globulin Ratio 1.2 (1.1-1.8); Alkaline Phosphatase 83 U/L (38-126); Anion Gap 22.6 mEq/L (5-15); Aspartate Amino Transferase 41 U/L (14-36); Bilirubin,Total 0.9 mg/dl (0.2-1.3); Blood Urea Nitrogen 31 mg/dl (7-17); Calcium 9.8 mg/dl (8.4-10.2); Carbon Dioxide 21 mmol/L (22.0-30.0); Chloride 102 mmol/L (98-107); Creatinine Clearance Estimated 33 mL/min (50-200); Creatinine,Serum 1.50 mg/dl (0.52-1.04); Estimated Glomerular Filt Rate 35 ml/min (>60); GFR (African American) 42 ML/MIN (>60); Globulin 4.8 g/dL (1.3-3.2); Glucose 159 mg/dl (74-100); Potassium 4.6 mmoL/L (3.5-5.1); Sodium 141 mmol/L (136-145); Total Protein,Serum 10.5 g/dl (6.3-8.2)
[2025-06-17 16:10] LABS: INR 0.92 (0.9-1.1); Prothrombin Time 10.3 seconds (10.1-12.5)
[2025-06-17] MEDS: PROMETHAZINE HCL 25MG/ML 1ML VIAL 25 MG IV (16:16)
[2025-06-17] MEDS: SODIUM CHLORIDE 0.9% 25ML BAG 25 ML IV (16:16)
[2025-06-17 16:20] VITALS: BP 164/78; PULSE 70; RESP 16; O2SAT 98
[2025-06-17] MEDS: MAGNESIUM SULFATE IN WATER 2 GM/50 ML PIGGYBACK IV (16:26)
[2025-06-17] MEDS: MORPHINE 2MG/ML SYRINGE 4 MG IV (17:32)
[2025-06-17 18:33] VITALS: BP 150/60; PULSE 70; RESP 16; TEMP 36.5; O2SAT 98
== END 2025-06-17 18:35 | disposition home or self-care (01) ==
PROVIDERS: Emergency Provider Student in an Organized Health Care Education/Training Program
DX: G43.909 Migraine, unspecified, not intractable, without status migrainosus (principal); R11.0 Nausea
CPT/HCPCS: 70450; 80053; 85025; 85610; 96365; 96375; 99285; J2270; J2550; J3475

== ENCOUNTER 2025-06-20 07:23 | Day surgery (SDC) | payer MEDICAID, SELFPAY ==
--- NOTE | 2025-06-15 06:42 | EXP.HP ---
History of Present Illness *Admission Date: 06/20/25 *History of present illness: Mrs. Romero is a 65-year-old female who is here for screening/surveillance colonoscopy. Her last colonoscopy was more than 10 years ago. The examination is deemed medically necessary for screening/surveillance colonoscopy. The patient has been seen, interviewed and examined prior to the procedure by both myself and the anesthesia provider. [facility] Disclaimer: The information contained in this section may have been updated after the patient was seen, as this information can be updated by other users. 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 CAD (coronary artery disease) HLD (hyperlipidemia) VIOLA (acute kidney injury) Fall Vertigo Headache Acute sore throat Upper respiratory infection, viral URI (upper respiratory infection) Depression Anxiety Migraine Diabetes mellitus, type 2 Asthma Hypertension Lumbar radiculopathy Cervical disc disease Exposure to COVID-19 virus Viral upper respiratory infection Laceration Diabetes Prepatellar bursitis, left knee Urinary tract infection Surgical History History of hernia surgery History of surgery History of hand surgery H/O hand surgery H/O foot surgery History of tubal ligation History of tonsillectomy History of section History of cholecystectomy Family History Other Cancer Heart failure Hypertension Social History (Updated 06/20/25 @ 09:46 by Mary Echavarria CRNA) Smoking Status: Never smoker alcohol intake: never substance use type: unknown current occupational status: disabled Travel in the last 8 weeks?: None Have you lived/traveled outside US in past 30 days?: No Contact w/someone who lives/traveled outside US past 30 days?: No Exposure to someone with infectious disease in past 14 days?: No Do you have a fever (greater than 100.4 F or 38 C)?: No Have you tested positive for COVID-19?: No Exposed to someone with COVID-19 in past 14 days?: No Do you have a sore throat?: No Do you have a cough?: No Do you have any weakness?: No Are you experiencing any nausea/vomitting?: No Do you have any diarrhea?: No Are you experiencing any unusual bleeding?: No Do you have any muscle aches/pain?: No Do you have any abdominal pain?: No Are you experiencing loss of taste or smell?: No Other 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 Have you received the Flu Vaccine for this season: No Have you received the Pneumonia Vaccine: No Review of Systems Review of Systems Review of systems (narrative): Negative *Cardiovascular Comments: Negative *Gastrointestinal Comments: Negative *Genitourinary Comments: Negative *Musculoskeletal Comments: Negative *Neurologic Comments: Negative Meds Home Medications and Allergies Home Medications ?Medication ?Instructions ?Recorded ?Confirmed ?Type amlodipine 5 mg tablet 5 mg PO DAILY 03/31/22 06/20/25 History aspirin 81 mg chewable tablet 81 mg PO DAILY 03/31/22 06/20/25 History bupropion HCl 150 mg tablet,12 hr 150 mg PO BID Depression 03/31/22 06/20/25 History sustained-release gabapentin 100 mg capsule 100 mg PO TID neuropathy 03/31/22 06/20/25 History insulin glargine 100 unit/mL (3 15 unit SQ DAILY Diabetes 03/31/22 06/20/25 History mL) subcutaneous pen (Lantus Solostar U-100 Insulin) lisinopril 2.5 mg tablet 2.5 mg PO DAILY High blood pressure 03/31/22 06/20/25 History spironolactone 50 mg tablet 50 mg PO DAILY High blood pressure 03/31/22 06/20/25 History tizanidine 4 mg tablet 4 mg PO BID neuropathy 03/31/22 06/20/25 History atorvastatin 40 mg tablet 40 mg PO HS 05/06/23 06/20/25 History famotidine 20 mg tablet 20 mg PO BID 05/06/23 06/20/25 History insulin lispro 100 unit/mL 20 unit SQ ACHS 05/06/23 06/20/25 History subcutaneous pen (Humalog KwikPen (U-100) Insulin) meclizine 25 mg tablet 25 mg PO TID 05/06/23 06/20/25 History methocarbamol 500 mg tablet 500 mg PO TID 05/06/23 06/20/25 History allopurinol 100 mg tablet 100 mg PO DAILY 05/07/23 06/20/25 History conjugated estrogens 0.3 mg tablet 0.3 mg PO DAILY 05/07/23 06/20/25 History (Premarin) hydrocodone 5 mg-acetaminophen 325 1 tab PO TIDP PRN Pain 05/07/23 06/20/25 History mg tablet polyethylene glycol 3350 17 17 g PO DAILY 05/07/23 06/20/25 History gram/dose oral powder topiramate 100 mg tablet 200 mg PO HS migraine 05/07/23 06/20/25 History levofloxacin 500 mg tablet 500 mg PO DAILY #5 tabs 05/09/23 06/20/25 Rx diclofenac sodium 1 % topical gel 4 g topical QID #50 grams 08/29/23 06/20/25 Rx (Voltaren Arthritis Pain) promethazine 25 mg tablet 25 mg PO HS migraine 11/19/23 06/20/25 History fluconazole 150 mg tablet 150 mg PO Q3D 2 doses #2 tabs 01/31/24 06/20/25 Rx promethazine 25 mg tablet 25 mg PO Q6H PRN nausea and 06/17/24 06/20/25 Rx vomiting 7 days #10 tabs peg 3350-electrolytes 236 240 ml PO Q10M colonscopy #4,000 mL 06/07/25 06/20/25 Rx gram-22.74 gram-6.74 gram-5.86 gram solution (Golytely) sodium,potassium,mag sulfates 17.5 See Rx Instructions PO .COMPLEX 06/07/25 06/20/25 Rx gram-3.13 gram-1.6 gram oral soln #354 mL (Suprep Bowel Prep Kit) New Prescriptions to Start Prescriptions: Allergies Allergy/AdvReac Type Severity Reaction Status Date / Time acetaminophen (From Tylenol) Allergy Seizure Verified 06/20/25 09:28 amoxicillin Allergy Seizure Verified 06/20/25 09:28 butorphanol (From Stadol) Allergy Seizure Verified 06/20/25 09:28 clavulanic acid Allergy Seizure Verified 06/20/25 09:28 fexofenadine Allergy Seizure Verified 06/20/25 09:28 ibuprofen Allergy Seizure Verified 06/20/25 09:28 ketorolac Allergy Seizure Verified 06/20/25 09:28 metoclopramide Allergy Seizure Verified 06/20/25 09:28 nizatidine Allergy Seizure Verified 06/20/25 09:28 ondansetron (From Zofran) Allergy Seizure Verified 06/20/25 09:28 prochlorperazine Allergy Seizure Verified 06/20/25 09:28 propoxyphene Allergy Seizure Verified 06/20/25 09:28 Exam *Routine HEENT Exam Head: Present normocephalic Eye: Present EOMI and PERRL ENT: Present mucous membranes moist *Routine Neck Exam Neck: Present supple *Routine Respiratory Exam Respiratory: Present CTA bilaterally *Routine Cardiovascular Exam Cardiovascular: Present RRR *Routine Abdominal Exam Abdominal: Present soft and normoactive bowel sounds; Absent tenderness *Routine Rectal Exam Rectal:: deferred *Routine Genitalia Exam Genitalia:: deferred *Routine Extremities Exam Extremities: Absent cyanosis, clubbing or edema *Routine Skin Exam Skin: Present warm; Absent rash *Routine Neurological Exam Neurological: Present alert and oriented X3 Assessment and Plan *Assessment and plan (1) Screening for colon cancer: Status: Acute Category: Medical Code(s): Z12.11 - Encounter for screening for malignant neoplasm of colon Plan A/P: 1. Screening for colon cancer is the preprocedural diagnosis. The patient will be anesthetized/sedated using MAC sedation. The patient has been seen and examined. Cardiac and lung assessment prior to the examination is stable. Proceed with planned screening/surveillance colonoscopy.
[2025-06-17 13:55] VITALS: BMI 23.8
--- NOTE | 2025-06-20 06:41 | HMH.PROCNOTE ---
[facility] Procedure Note Date: 06/20/25 Time: 10:50 Procedure Note:: Colonoscopy Procedure Report: Colonoscopy with cold snare polypectomy Endoscopist: Herb Feliciano II, MD Referring physician: Lupillo Garcia MD, [address] [place] [address] Date of Procedure: June 20, 2025 Equipment: Olympus [id number] adult colonoscope Sedation: MAC sedation Indication: Mrs. Romero is a 65-year-old female who is here for screening/surveillance colonoscopy. Her last colonoscopy was more than 10 years ago. The patient reports no abdominal pain, weight loss, change in her bowel habits or rectal bleeding. She does state that her maternal uncle had colon cancer in his 60s. The examination is deemed medically necessary for screening/surveillance colonoscopy. Procedure: Prior to the procedure, a history and physical exam was performed, and patient's medications and allergies were reviewed. The risks, benefits and alternatives of the sedation and procedure were discussed with the patient. All questions were answered and informed consent was obtained. The patient was brought to the procedure room. Patient identification and proposed procedure were verified by the physician and the nurse. The patient was placed in a left lateral decubitus position and the scope was passed under direct vision. Throughout the procedure, the patient's blood pressure, pulse, and oxygen saturations were monitored continuously. The colonoscopy was accomplished without difficulty. The patient tolerated the procedure well. Findings: On digital rectal examination there was normal rectal tone. There were no external hemorrhoids. The colonoscope was introduced through the anal canal to the rectum and advanced to the cecum. The ileocecal valve and appendiceal orifice were identified. The scope was advanced a short distance into the ileum which appeared grossly normal. The scope was then withdrawn into the colon. There were 2 colon polyps (cecum x 1 (4 mm) and descending x 1 (4 mm)). Both of these were removed via cold snare polypectomy. The remaining cecum, ascending, transverse, descending, sigmoid and rectum were grossly normal. There were no other mucosal abnormalities identified. Upon retroflexion within the rectum there were grade 1-2 internal hemorrhoids. The preparation was fair throughout with [place] Preparation Score of 7 out of 9. The cecal time was 12 minutes. Impression: 1. Diminutive colonic polyps x 2 Plan: I will follow-up the polyp histology and recommend repeat screening/surveillance colonoscopy again in 7 to 10 years based upon the pathology.
[2025-06-20 09:31] VITALS: BP 193/93; PULSE 70; RESP 18; TEMP 36.7; O2SAT 100; BMI 23.8
[2025-06-20] MEDS: LACTATED RINGERS 1000ML 1,000 ML 50 ML IV (09:42)
--- NOTE | 2025-06-20 09:44 | P.PNANES_ITS ---
[facility] Disclaimer: The information contained in this section may have been updated after the patient was seen, as this information can be updated by other users. 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 CAD (coronary artery disease) HLD (hyperlipidemia) VIOLA (acute kidney injury) Fall Vertigo Headache Acute sore throat Upper respiratory infection, viral URI (upper respiratory infection) Depression Anxiety Migraine Diabetes mellitus, type 2 Asthma Hypertension Lumbar radiculopathy Cervical disc disease Exposure to COVID-19 virus Viral upper respiratory infection Laceration Diabetes Prepatellar bursitis, left knee Urinary tract infection Surgical History History of hernia surgery History of surgery History of hand surgery H/O hand surgery H/O foot surgery History of tubal ligation History of tonsillectomy History of section History of cholecystectomy Family History Other Cancer Heart failure Hypertension Social History Smoking Status: Never smoker alcohol intake: never substance use type: unknown current occupational status: disabled Travel in the last 8 weeks?: None [facility] Anesthesia Checklist Patient Identification Patient Identification: Arm Band and Verbal (Name & ) Structural Data Admitted From: Home Planned Operative Procedure/s: Colonscopy Consent for Planned Operative Procedure(s) Verified: Yes Verified Documents: Surgical Consent and History and Physical NPO Status Verified Time NPO: 00:00 Additional verifications Anesthesia Reactions: No Previous Colonoscopy: Yes Airway Assessment Mallampati Score:: Class II C-Spine Mobility Assessed: Yes TMJ Mobility Assessed: Yes Dentition: Good Dentition Neurological Assessment Level of Consciousness: Awake, Alert and Appropriate Hx Seizures: No Numbness or tingling in extremities: No Anesthesia Plan Anesthesia Risk discussed: Yes ASA Class: III Anesthesia Type: MAC
[2025-06-20 10:53] VITALS: BP 100/57; PULSE 71; RESP 18; TEMP 36.1; O2SAT 98
[2025-06-20 11:03] VITALS: BP 163/97; PULSE 68; RESP 18; TEMP 36.1; O2SAT 100
[2025-06-20 11:13] VITALS: BP 154/77; PULSE 72; RESP 18; TEMP 36.1; O2SAT 100
[2025-06-20 11:23] VITALS: BP 155/76; PULSE 68; RESP 18; TEMP 36.1; O2SAT 100
[2025-06-23 14:09] LABS: POC Glucose,Bedside 165 gm/dL (70-110)
== END 2025-06-20 12:00 | disposition home or self-care (01) ==
PROVIDERS: Visit Provider Internal Medicine Gastroenterology
PROC: 0DJD8ZZ Inspection of Lower Intestinal Tract, Via Natural or Artificial Opening Endoscopic (ICD-10-PCS; CPT 45378; principal; 2025-06-20 09:00)
DX: Z12.11 Encounter for screening for malignant neoplasm of colon (principal); D12.0 Benign neoplasm of cecum; D12.4 Benign neoplasm of descending colon; E11.9 Type 2 diabetes mellitus without complications; E78.5 Hyperlipidemia, unspecified; I25.10 Atherosclerotic heart disease of native coronary artery without angina pectoris; F32.A Depression, unspecified; F41.9 Anxiety disorder, unspecified; J45.909 Unspecified asthma, uncomplicated; I10 Essential (primary) hypertension; Z79.4 Long term (current) use of insulin; Z79.82 Long term (current) use of aspirin; Z79.890 Hormone replacement therapy; Z79.02 Long term (current) use of antithrombotics/antiplatelets; Z79.899 Other long term (current) drug therapy; Z88.6 Allergy status to analgesic agent; Z88.0 Allergy status to penicillin; Z88.8 Allergy status to other drugs, medicaments and biological substances
CPT/HCPCS: 45385; 82962; J2003; J2704; J7120

== ENCOUNTER 2025-06-24 11:00 | Outpatient (RCR) | payer MEDICAID, SELFPAY | END 2025-06-24 23:59 | disposition home or self-care (01) | LOC: PT 11:00 | PROVIDERS: Visit Provider Pain Medicine Interventional Pain Medicine | DX: M47.816 Spondylosis without myelopathy or radiculopathy, lumbar region (principal) | CPT/HCPCS: 97110 ==